=== PATIENT | female | born 1970 | race Caucasian/White ===

== ENCOUNTER 2021-06-13 08:39 | Emergency (ER) | payer MEDICARE, MEDICAID ==
--- NOTE | 2021-06-13 09:30 | ED Physician Documentation ---
PD HPI DYSPNEA - Stated complaint Stated Complaint: SOA - Chief complaint Chief Complaint: Cardiac - History obtained from History obtained from: Patient - History of Present Illness Timing - onset: How many days ago (She has had 3 days progress of shortness of breath and some pains on the right chest. She has noted a "gurgling" sound with breathing. She has had increased pain on the right side and worse dyspnea overnight.) Timing - onset during: Rest Timing - details: Gradual onset, Still present (worse overnight) Inciting event(s): No: URI (She denies fever cough or congestion. She has recently come to [facility] 2 weeks ago from the [facility] to be with relatives.) Improved by: Rest Worsened by: Exertion (just light activity), Coughing, Other (deep breathing) Associated symptoms: Cough (some cough), Wheezing, Chest pain / discomfort (right lower chest). No: Fever, Hemoptysis, Bilateral edema Similar symptoms before: Has not had sx before (no history of CHF/CAD. No pneumonia. Does have asthma. No home oxygen.) Recently seen: Clinic (has been getting TPN at nights by central line that she has had for several months, due to prior gastric resection and intestinal malabsorption.) Review of Systems Constitutional: reports: Fatigue. denies: Fever, Myalgias Nose: denies: Rhinorrhea / runny nose, Congestion Throat: denies: Sore throat Cardiac: reports: Chest pain / pressure (just recent). denies: Pedal edema, Calf pain Respiratory: reports: Dyspnea, Cough. denies: Wheezing GI: denies: Abdominal Pain, Vomiting, Diarrhea : denies: Dysuria Skin: denies: Rash Neurologic: reports: Generalized weakness. denies: Near syncope (but feeling lightheaded the past few days. States BP typical low at about 100 systolic.) PD PAST MEDICAL HISTORY - Past Medical History Past Medical History: Yes Cardiovascular: None Respiratory: Asthma, Shortness of breath Neuro: None Endocrine/Autoimmune: None GI: Other (gastroparesis with prior gastric resection. Also with malabsorption so gets TPN supplements due to chronic weight loss. ) LEVER TENDER: None : None HEENT: Chronic hearing loss Psych: Anxiety, Bipolar disorder Musculoskeletal: Chronic back pain Derm: None - Past Surgical History Past Surgical History: Yes General: Bowel surgery - Present Medications Home Medications: Ambulatory Orders Medication Instructions Recorded Confirmed Albuterol Sulf [Ventolin Hfa 1 - 2 puffs IH PRN PRN 06/13/21 06/13/21 Inhaler] Baclofen [Lioresal] 1 tablet ORAL PRN PRN 06/13/21 06/13/21 Cetirizine [ZyrTEC] 1 tab ORAL DAILY 06/13/21 06/13/21 DULoxetine [Cymbalta] 20 mg PO DAILY 06/13/21 06/13/21 Duloxetine HCl [Cymbalta] 60 mg PO DAILY 06/13/21 06/13/21 Furosemide [Lasix] 40 mg PO PRN PRN 06/13/21 06/13/21 Hydrocodone/Acetaminophen 1 tablet ORAL PRN PRN 06/13/21 06/13/21 [Hydrocodone-Acetamin 10-325 mg] Montelukast [Singulair] 1 tab ORAL DAILY 06/13/21 06/13/21 lamoTRIgine [Lamictal] 2 tablet PO BID 06/13/21 06/13/21 traMADol [Ultram] 1 tablet ORAL PRN PRN 06/13/21 06/13/21 - Allergies Allergies/Adverse Reactions: Allergies Allergy/AdvReac Type Severity Reaction Status Date / Time morphine Allergy Unknown Verified 06/13/21 09:42 Penicillins Allergy Unknown Verified 06/13/21 09:42 vancomycin AdvReac Unknown Verified 06/13/21 10:26 - Living Situation Living Situation: reports: With family Living Arrangement: reports: At home (recently moved 2 weeks ago from [facility] to be with family.) - Social History Does the pt smoke?: No Smoking Status: Former smoker Does the pt drink ETOH?: No Does the pt have substance abuse?: No - Family History Family history: reports: Non contributory - Immunizations Immunizations are current?: No Immunizations: TDAP >10years/unknown, Other immun not current - POLST Patient has POLST: Yes POLST Status: Full Code PD ED PE NORMAL - General General: Alert and oriented X 3, Other (able to sit up and maneuver in cart on her own. ). No: Well developed/nourished (frail and thin. ) - HEENT HEENT: No: Moist mucous membranes - Neck Neck: Supple, no meningeal sign, No adenopathy - Cardiac Cardiac: RRR, No murmur - Respiratory Respiratory: Other (central line noted right upper chest wall. No redness nor swelling. ). No: Clear bilaterally (coarse sounds right base and some wheezing diffusely. ) - Abdomen Abdomen: Soft, Non tender, Non distended - Derm Derm: Warm and dry. No: Normal color (pale) - Extremities Extremities: Normal ROM s pain, No edema, No calf tenderness / cord - Neuro Neuro: Alert and oriented X 3, No motor deficit, No sensory deficit, Normal speech Eye Opening: Spontaneous Motor: Obeys Commands Verbal: Oriented GCS Score: 15 - Psych Psych: Normal mood. No: Normal affect (somewhat flat) Results - Vitals Vitals: Vital Signs - 24 hr 06/13/21 06/13/21 06/13/21 08:46 08:55 09:38 Temperature 35.5 C L 36 C L Heart Rate 89 82 84 Respiratory 30 H 28 H 26 H Rate Blood Pressure 94/52 L 94/52 L 79/54 L O2 Saturation 88 L 93 96 06/13/21 06/13/21 06/13/21 09:51 10:16 11:59 Temperature Heart Rate 85 84 87 Respiratory 22 26 H 31 H Rate Blood Pressure 74/55 L 108/79 O2 Saturation 96 98 06/13/21 06/13/21 06/13/21 12:10 13:15 14:35 Temperature Heart Rate 86 85 86 Respiratory 22 30 H Rate Blood Pressure 77/48 L O2 Saturation 97 06/13/21 06/13/21 06/13/21 14:36 15:02 15:10 Temperature 36.7 C Heart Rate 87 85 84 Respiratory 34 H 33 H 33 H Rate Blood Pressure 81/42 L 118/32 L 78/47 L O2 Saturation 86 L 92 90 L Oxygen O2 Source Oxymask Oxygen Flow Rate 4 - Labs Labs: Laboratory Tests 06/13/21 06/13/21 06/13/21 09:51 09:51 09:51 WBC 12.4 H RBC 3.58 L Hgb 8.6 L Hct 28.7 L MCV 80.2 L MCH 24.0 L MCHC 30.0 L RDW 17.1 H Plt Count 252 MPV 9.6 Neut # (Auto) Not Reportable Lymph # (Auto) Not Reportable Gordon # (Auto) Not Reportable Eos # (Auto) Not Reportable Baso # (Auto) Not Reportable Absolute Nucleated RBC Not Reportable Total Counted 100 Band Neuts % (Manual) 26 H Abnorm Lymph % (Manual) 0 Metamyelocytes % 5 H Myelocytes % 1 H Promyelocytes % 1 H Nucleated RBC % Not Reportable Neutrophils # (Manual) 11.2 H Lymphocytes # (Manual) 0.2 L Monocytes # (Manual) 0.0 Eosinophils # (Manual) 0.0 Basophils # (Manual) 0.1 Differential Comment MANUAL DIFFERENTIAL WBC Morphology 1+ VACUOLATION Platelet Estimate NORMAL (130-450,000) Platelet Morphology NORMAL APPEARANCE RBC Morph Micro Appear NORMAL APPEARANCE D-Dimer Bld Gas Analysis Time Sample Site ABG pH ABG pCO2 ABG pO2 ABG HCO3 ABG Total CO2 ABG O2 Saturation ABG Base Excess Kody Test O2 Delivery Device O2 Liters/Min Sodium 133 L Potassium 4.4 Chloride 99 L Carbon Dioxide 22 Anion Gap 12.0 BUN 34 H Creatinine 1.0 Estimated GFR (MDRD) 59 L Glucose 93 Lactic Acid Calcium 8.8 Phosphorus 5.1 H Magnesium 2.3 Iron TIBC % Saturation Transferrin Total Bilirubin 0.9 AST 25 ALT 20 Alkaline Phosphatase 204 H Troponin I High Sens B-Natriuretic Peptide 983 H Total Protein 6.1 L Albumin 2.3 L Globulin 3.8 Albumin/Globulin Ratio 0.6 L Lipase 20 L Nasal Adenovirus (PCR) Nasal B. parapertussis DNA (PCR) Nasal Coronavir 229E PCR Nasal Coronavir HKU1 PCR Nasal Coronavir NL63 PCR Nasal Coronavir OC43 PCR Nasal Enterovir/Rhinovir PCR Nasal Influenza B PCR Nasal Influenza A PCR Nasal Parainfluen 1 PCR Nasal Parainfluen 2 PCR Nasal Parainfluen 3 PCR Nasal Parainfluen 4 PCR Nasal RSV (PCR) Nasal B.pertussis DNA PCR Nasal C.pneumoniae (PCR) Zac Human Metapneumo PCR Nasal M.pneumoniae (PCR) Nasal SARS-CoV-2 (PCR) 06/13/21 06/13/21 06/13/21 09:51 09:51 09:51 WBC RBC Hgb Hct MCV MCH MCHC RDW Plt Count MPV Neut # (Auto) Lymph # (Auto) Gordon # (Auto) Eos # (Auto) Baso # (Auto) Absolute Nucleated RBC Total Counted Band Neuts % (Manual) Abnorm Lymph % (Manual) Metamyelocytes % Myelocytes % Promyelocytes % Nucleated RBC % Neutrophils # (Manual) Lymphocytes # (Manual) Monocytes # (Manual) Eosinophils # (Manual) Basophils # (Manual) Differential Comment WBC Morphology Platelet Estimate Platelet Morphology RBC Morph Micro Appear D-Dimer > 1050.0 H Bld Gas Analysis Time Sample Site ABG pH ABG pCO2 ABG pO2 ABG HCO3 ABG Total CO2 ABG O2 Saturation ABG Base Excess Kody Test O2 Delivery Device O2 Liters/Min Sodium Potassium Chloride Carbon Dioxide Anion Gap BUN Creatinine Estimated GFR (MDRD) Glucose Lactic Acid 2.8 H Calcium Phosphorus Magnesium Iron TIBC % Saturation Transferrin Total Bilirubin AST ALT Alkaline Phosphatase Troponin I High Sens 16.2 H* B-Natriuretic Peptide Total Protein Albumin Globulin Albumin/Globulin Ratio Lipase Nasal Adenovirus (PCR) Nasal B. parapertussis DNA (PCR) Nasal Coronavir 229E PCR Nasal Coronavir HKU1 PCR Nasal Coronavir NL63 PCR Nasal Coronavir OC43 PCR Nasal Enterovir/Rhinovir PCR Nasal Influenza B PCR Nasal Influenza A PCR Nasal Parainfluen 1 PCR Nasal Parainfluen 2 PCR Nasal Parainfluen 3 PCR Nasal Parainfluen 4 PCR Nasal RSV (PCR) Nasal B.pertussis DNA PCR Nasal C.pneumoniae (PCR) Zac Human Metapneumo PCR Nasal M.pneumoniae (PCR) Nasal SARS-CoV-2 (PCR) 06/13/21 06/13/21 06/13/21 09:51 09:53 12:56 WBC RBC Hgb Hct MCV MCH MCHC RDW Plt Count MPV Neut # (Auto) Lymph # (Auto) Gordon # (Auto) Eos # (Auto) Baso # (Auto) Absolute Nucleated RBC Total Counted Band Neuts % (Manual) Abnorm Lymph % (Manual) Metamyelocytes % Myelocytes % Promyelocytes % Nucleated RBC % Neutrophils # (Manual) Lymphocytes # (Manual) Monocytes # (Manual) Eosinophils # (Manual) Basophils # (Manual) Differential Comment WBC Morphology Platelet Estimate Platelet Morphology RBC Morph Micro Appear D-Dimer Bld Gas Analysis Time Sample Site ABG pH ABG pCO2 ABG pO2 ABG HCO3 ABG Total CO2 ABG O2 Saturation ABG Base Excess Kody Test O2 Delivery Device O2 Liters/Min Sodium Potassium Chloride Carbon Dioxide Anion Gap BUN Creatinine Estimated GFR (MDRD) Glucose Lactic Acid 2.2 Calcium Phosphorus Magnesium Iron 51 TIBC 136 L % Saturation 38 Transferrin 97 L Total Bilirubin AST ALT Alkaline Phosphatase Troponin I High Sens B-Natriuretic Peptide Total Protein Albumin Globulin Albumin/Globulin Ratio Lipase Nasal Adenovirus (PCR) NOT DETECTED Nasal B. parapertussis DNA (PCR) NOT DETECTED Nasal Coronavir 229E PCR NOT DETECTED Nasal Coronavir HKU1 PCR NOT DETECTED Nasal Coronavir NL63 PCR NOT DETECTED Nasal Coronavir OC43 PCR NOT DETECTED Nasal Enterovir/Rhinovir PCR NOT DETECTED Nasal Influenza B PCR NOT DETECTED Nasal Influenza A PCR NOT DETECTED Nasal Parainfluen 1 PCR NOT DETECTED Nasal Parainfluen 2 PCR NOT DETECTED Nasal Parainfluen 3 PCR NOT DETECTED Nasal Parainfluen 4 PCR NOT DETECTED Nasal RSV (PCR) NOT DETECTED Nasal B.pertussis DNA PCR NOT DETECTED Nasal C.pneumoniae (PCR) NOT DETECTED Zac Human Metapneumo PCR NOT DETECTED Nasal M.pneumoniae (PCR) NOT DETECTED Nasal SARS-CoV-2 (PCR) NOT DETECTED 06/13/21 14:10 WBC RBC Hgb Hct MCV MCH MCHC RDW Plt Count MPV Neut # (Auto) Lymph # (Auto) Gordon # (Auto) Eos # (Auto) Baso # (Auto) Absolute Nucleated RBC Total Counted Band Neuts % (Manual) Abnorm Lymph % (Manual) Metamyelocytes % Myelocytes % Promyelocytes % Nucleated RBC % Neutrophils # (Manual) Lymphocytes # (Manual) Monocytes # (Manual) Eosinophils # (Manual) Basophils # (Manual) Differential Comment WBC Morphology Platelet Estimate Platelet Morphology RBC Morph Micro Appear D-Dimer Bld Gas Analysis Time 1410 Sample Site LEFT RADIAL ABG pH 7.39 ABG pCO2 34 ABG pO2 52 L* ABG HCO3 20.1 L ABG Total CO2 21.1 ABG O2 Saturation 86 L* ABG Base Excess -4.3 L Kody Test POSITIVE O2 Delivery Device NASAL CANNULA O2 Liters/Min 4.00 Sodium Potassium Chloride Carbon Dioxide Anion Gap BUN Creatinine Estimated GFR (MDRD) Glucose Lactic Acid Calcium Phosphorus Magnesium Iron TIBC % Saturation Transferrin Total Bilirubin AST ALT Alkaline Phosphatase Troponin I High Sens B-Natriuretic Peptide Total Protein Albumin Globulin Albumin/Globulin Ratio Lipase Nasal Adenovirus (PCR) Nasal B. parapertussis DNA (PCR) Nasal Coronavir 229E PCR Nasal Coronavir HKU1 PCR Nasal Coronavir NL63 PCR Nasal Coronavir OC43 PCR Nasal Enterovir/Rhinovir PCR Nasal Influenza B PCR Nasal Influenza A PCR Nasal Parainfluen 1 PCR Nasal Parainfluen 2 PCR Nasal Parainfluen 3 PCR Nasal Parainfluen 4 PCR Nasal RSV (PCR) Nasal B.pertussis DNA PCR Nasal C.pneumoniae (PCR) Zac Human Metapneumo PCR Nasal M.pneumoniae (PCR) Nasal SARS-CoV-2 (PCR) - Rads (name of study) chest xray Radiology: Prelim report reviewed (Multifocal pneumonia and infiltrates with right lower lobe dense infiltrate. No effusion. No pneumothorax.), See rad report PD MEDICAL DECISION MAKING - ED course Complexity details: reviewed results (Pneumonia on chest x-ray. Elevated D- dimer so's angio of the chest which was negative for PEs. Confirmed infiltrates. Elevated BNP so concern for some element of heart strain with the pneumonia. No history of CHF per se. Will be cautious with fluid bolusing.), considered differential (pneumonia versus PE, CHF, PA, PTX, other processes.), d/w patient ED course: We did not have any ICU beds available here. The patient is sick enough to need higher level of care. Our community resource officer look for bed availability. We weren't able to find an accepting software developer manager Dr. Hahn at [facility]. The patient is remaining stable enough at this point with low dose norepinephrine at 7 mcg and oxime mask at 12 L/min. She is mentating well. The patient is excepted to [facility]. They have no beds available at this point but will arrange rearrange their intermediate ICU and call us with bed availability as soon as they can. - Critical Care Time(min): 80 Time Includes: Direct patient care, Reassess patient, Document care, Coordinate care Data interpretation: Labs, ABG, CXR Procedures excluded from critical care time: EKG Departure - Departure Disposition: 02 Transfer Acute Care Hosp Clinical Impression: Dyspnea Qualifiers: Dyspnea type: shortness of breath Qualified Code(s): R06.02 - Shortness of breath Pneumonia Qualifiers: Pneumonia type: due to unspecified organism Laterality: bilateral Lung lo cation: unspecified part of lung Qualified Code(s): J18.9 - Pneumonia, unspecified organism Sepsis Qualifiers: Sepsis type: sepsis due to unspecified organism Sepsis acute organ dysfunction status: unspecified Qualified Code(s): A41.9 - Sepsis, unspecified organism Condition: Stable
[2021-06-13] MEDS ORDERED: KETOROLAC 15 MG/ML VIAL IVP STA (09:34)
[2021-06-13] MEDS ORDERED: SODIUM CHLORIDE 0.9% 1,000 ML IV STA ×3 (09:34→13:53)
[2021-06-13] MEDS ORDERED: ALBUTEROL 1 PUFF INH STA (09:35)
[2021-06-13 09:57] LABS: BASOPHILS % (AUTO) 0.1 %; EOSINOPHILS % (AUTO) 0.1 %; HCT - HEMATOCRIT 28.7 % (37.0-47.0); HGB - HEMOGLOBIN 8.6 g/dL (12.0-16.0); LYMPHOCYTES % (AUTO) 1.8 %; MEAN CORPUSCULAR VOLUME 80.2 fL (81.0-99.0); MEAN PLATELET VOLUME 9.6 fL (7.9-10.8); MONOCYTES % (AUTO) 1.3 %; NEUTROPHILS % (AUTO) 95.8 %; PLT - PLATELET COUNT 252 10^3/uL (130-450); RED BLOOD COUNT 3.58 10^6/uL (4.20-5.40); RED CELL DISTRIBUTION WIDTH 17.1 % (12.0-15.0); WHITE BLOOD COUNT 12.4 x10^3/uL (4.8-10.8)
--- NOTE | 2021-06-13 09:57 | XRAY Report ---
PROCEDURE: Chest 1 View X-Ray INDICATIONS: chest pain TECHNIQUE: One view of the chest was acquired. COMPARISON: None. FINDINGS: Surgical changes and devices: Right-sided central venous line with the catheter tip at the cavoatrial junction. Clip at the left upper abdomen. Left shoulder anchor. Lungs and pleura: No pleural effusions or pneumothorax. Large consolidative opacity in the right mid lung field. Patchy airspace opacity in the right and left lungs. Mediastinum: Mediastinal contours appear normal. Heart size is normal. Bones and chest wall: No suspicious bony lesions. Overlying soft tissues appear unremarkable. IMPRESSION: Large consolidation in the right lung. Bilateral patchy airspace opacity. Findings most consistent with multifocal pneumonia. Recommend follow-up to resolution. Reviewed by: Tyler Cordoba MD on 06/13/2021 9:56 AM [facility] Approved by: Tyler Cordoba MD on 06/13/2021 9:56 AM [facility] Station ID: [id number]
[2021-06-13] MEDS ORDERED: AZITHROMYCIN INJ 500 MG in SODIUM CHLORIDE 0.9% 250 ML IV STA (09:59)
[2021-06-13] MEDS ORDERED: cefTRIAXone 1 GM VIAL IVP STA (09:59)
[2021-06-13 10:02] LABS: ABNORMAL LYMPHS % (MANUAL) 0 %
[2021-06-13 10:21] LABS: ALBUMIN 2.3 g/dL (3.2-5.5); ALBUMIN/GLOBULIN RATIO 0.6 (1.0-2.2); BILIRUBIN,TOTAL 0.9 mg/dL (0.2-1.0); CALCIUM 8.8 mg/dL (8.5-10.3); MAGNESIUM 2.3 mg/dL (1.7-2.8); PHOSPHORUS 5.1 mg/dL (2.5-4.6); POTASSIUM 4.4 mmol/L (3.5-5.0); TOTAL PROTEIN 6.1 g/dL (6.7-8.2)
[2021-06-13 10:41] LABS: BAND NEUTROPHILS % (MANUAL) 26 %; BASOPHILS # (MANUAL) 0.1 10^3/uL (0-0.1); BASOPHILS % (MANUAL) 1 %; LYMPHOCYTES # (MANUAL) 0.2 10^3/uL (1.5-3.5); LYMPHOCYTES % (MANUAL) 2 %; METAMYELOCYTES % (MANUAL) 5 %; MYELOCYTES % (MANUAL) 1 %; NEUTROPHILS # (MANUAL) 11.2 10^3/uL (1.5-6.6); PROMYELOCYTES % (MANUAL) 1 %
[2021-06-13 10:44] LABS: DIFFERENTIAL COMMENT MANUAL DIFFERENTIAL; PLATELET ESTIMATE, MANUAL NORMAL (130-450,000) (NORMAL); PLATELET MORPHOLOGY NORMAL APPEARANCE (NORMAL); RBC MORPHOLOGY (MULTIPLE) NORMAL APPEARANCE (NORMAL)
[2021-06-13] MEDS ORDERED: IOVERSOL 320 100 ML VIAL IVP ONE ×2 (11:15→13:14)
[2021-06-13 11:32] LABS: % IRON SATURATION 38 % (20-50); IRON 51 ug/dL (28-170); TOTAL IRON BINDING CAPACITY 136 ug/dL (250-450); TRANSFERRIN 97 mg/dL (192-382)
[2021-06-13] MEDS ORDERED: IPRATROPIUM/ALBUTEROL 3 ML NEB INH STA (11:43)
[2021-06-13 11:47] LABS: B. PARAPERTUSSIS- RESP PCR PAN NOT DETECTED; B. PERTUSSIS- RESP PCR PANEL NOT DETECTED; C. PNEUMONIAE- RESP PCR PANEL NOT DETECTED; CORONAVIRUS 229E-RESP PCR NOT DETECTED; CORONAVIRUS HKU1-RESP PCR NOT DETECTED; CORONAVIRUS NL63-RESP PCR NOT DETECTED; CORONAVIRUS OC43-RESP PCR NOT DETECTED; HUMAN METAPNEUMOVIRUS NOT DETECTED; INFLUENZA A- RESP PCR PANEL NOT DETECTED; INFLUENZA B - RESP PCR PANEL NOT DETECTED; M. PNEUMONIAE- RESP PCR PANEL NOT DETECTED; PARAINFLUENZA VIRUS 1 NOT DETECTED; PARAINFLUENZA VIRUS 2 NOT DETECTED; PARAINFLUENZA VIRUS 3 NOT DETECTED; PARAINFLUENZA VIRUS 4 NOT DETECTED; RHINOVIRUS/ENTEROVIRUS NOT DETECTED; RSV- RESP PCR PANEL NOT DETECTED; SARS-CoV-2 -RESP PCR PANEL NOT DETECTED
[2021-06-13] MEDS ORDERED: fentaNYL 100 MCG/2 ML VIAL IVP STA ×3 (11:48→16:50)
--- NOTE | 2021-06-13 11:49 | CT Report ---
PROCEDURE: ANGIO CHEST W/WO INDICATIONS: dyspnea, pneumonia, elevated d-dimer CONTRAST: IV CONTRAST: Optiray 320 ml: 80 PO CONTRAST: *NO PO CONTRAST TECHNIQUE: After the administration of intravenous contrast, 2 mm axial images were acquired from the pulmonary apices to the posterior costophrenic angles during the arterial phase. In addition, 1 mm lung kernel and 5 mm soft tissue kernel reconstructions were performed. 3-dimensional coronal oblique maximum int ensity projection (MIP) reformats, 8 mm axial MIP, and 5 mm coronal and sagittal MPR reformats were t hen performed through the thorax. For radiation dose reduction, the following was used: automated exp osure control, adjustment of mA and/or kV according to patient size. COMPARISON: Chest x-ray 06/13/2021 FINDINGS: Image quality: Excellent. Pulmonary arteries: Pulmonary arteries are normal in size, and demonstrate no intraluminal filling d efects to suggest central pulmonary embolism. Lungs and pleura: Patchy and confluent areas of consolidative opacity including groundglass opacities are present within the lungs bilaterally. No pleural effusions or pneumothorax. Central and periphe ral airways are patent. Mediastinum: Heart size is normal, without pericardial effusion. Enlarged mediastinal and hilar lymp h nodes are present. Thoracic aorta is normal in caliber and enhancement. Esophagus is normal in jaycee iber, without hiatal hernia. Right-sided central venous catheter is present within the SVC and termi nating at the level the right atrium. Bones and chest wall: No suspicious bony lesions. Ribs and thoracic spine appear intact throughout. No axillary or supraclavicular adenopathy. The thyroid is normal in size and there are no incident al findings. Abdomen: Visualized upper abdominal solid organs appear normal in the early arterial phase of enhanc ement. IMPRESSION: Patchy and consolidative opacities including groundglass opacities are present within the lungs bilat erally most consistent with inflammation/infection such as pneumonia. Recommend interval follow-up to document resolution and exclude presence of underlying mass lesion. No pulmonary embolism. CLINICAL RECOMMENDATION STATEMENTS: In patients <35 years with an ITN detected on CT, MRI, or extrathyroidal ultrasound, the Committee re commends further evaluation with dedicated thyroid ultrasound if the nodule is "e1 cm and has no susp icious imaging features, and if the patient has normal life expectancy. In patients "e35 years with an ITN detected on CT, MRI, or extrathyroidal ultrasound, the Committee r ecommends further evaluation with dedicated thyroid ultrasound if the nodule is "e1.5 cm and has no s uspicious imaging features, and if the patient has normal life expectancy. (ACR, 2014) Reviewed by: Janice Arana MD on 06/13/2021 11:48 AM PST Approved by: Janice Arana MD on 06/13/2021 11:48 AM PST Station ID: [id number]
[2021-06-13 14:15] LABS: ABG HCO3 20.1 mmol/L (22.0-26.0); ABG PCO2 34 mmHg (34-45); ABG PH 7.39 (7.35-7.45)
[2021-06-13 14:16] LABS: ABG BASE EXCESS -4.3 mmol/L (-2.0-3.0); ABG TCO2 21.1 MMOL/L (21.0-29.0); ALLEN TEST POSITIVE
[2021-06-13 14:17] LABS: ABG OXYGEN SATURATION 86 % (94-98); ABG PO2 52 mmHg (80-100)
[2021-06-13] MEDS ORDERED: SODIUM CHLORIDE 0.9% 500 ML IV STA (14:20)
[2021-06-13] MEDS ORDERED: ALBUTEROL NEB 2.5 MG/3 ML INH STA ×2 (14:21→16:18)
[2021-06-13] MEDS ORDERED: DEXAMETHASONE 10 MG/ML VIAL IVP STA (16:18)
[2021-06-13 16:49] VITALS: BP 119/52
== END 2021-06-13 17:14 | disposition short-term general hospital (02) ==
LOC: ED 08:39
DX: A41.9 Sepsis, unspecified organism (principal); J18.9 Pneumonia, unspecified organism; R53.1 Weakness; J45.909 Unspecified asthma, uncomplicated; Z20.822 Contact with and (suspected) exposure to COVID-19; Z87.891 Personal history of nicotine dependence; K90.9 Intestinal malabsorption, unspecified; Z90.3 Acquired absence of stomach [part of]
CPT/HCPCS: 36415; 36600; 71045; 71275; 80053; 82803; 83540; 83605; 83690; 83735; 83880; 84100; 84466; 84484; 85025; 85379; 87631; 93005; 94640; 94664; 96361; 96365; 96366; 96367; 96375; 96376; 99285; 99291; 99292; Q9967; 0202U

== ENCOUNTER 2022-01-10 09:44 | Outpatient (CLI) | payer MEDICARE, MEDICAID | END 2022-01-10 09:45 | disposition short-term general hospital (02) | LOC: EMS 09:44 | DX: M79.89 Other specified soft tissue disorders (principal); M25.571 Pain in right ankle and joints of right foot; R26.2 Difficulty in walking, not elsewhere classified | CPT/HCPCS: A0425; A0429; A0888 ==

== ENCOUNTER 2022-04-29 10:15 | Outpatient (CLI) | payer MEDICARE, MEDICAID | END 2022-04-29 10:16 | disposition critical access hospital (66) | LOC: EMS 10:15 | DX: R11.0 Nausea (principal); R53.83 Other fatigue; R41.82 Altered mental status, unspecified; R53.1 Weakness | CPT/HCPCS: A0425; A0427 ==

== ENCOUNTER 2022-04-29 10:37 | Emergency (ER) | payer MEDICARE, MEDICAID ==
[2022-04-29 11:11] LABS: BASOPHILS % (AUTO) 0.7 %; EOSINOPHILS % (AUTO) 0.4 %; HGB - HEMOGLOBIN 8.7 g/dL (12.0-16.0); LYMPHOCYTES % (AUTO) 7.9 %; MEAN CORPUSCULAR HEMOGLOBIN 23.9 pg (27.0-31.0); MEAN CORPUSCULAR HGB CONC 32.2 g/dL (32.0-36.0); MEAN CORPUSCULAR VOLUME 74.2 fL (81.0-99.0); MONOCYTES % (AUTO) 5.6 %; NEUTROPHILS % (AUTO) 81.4 %; PLT - PLATELET COUNT 115 10^3/uL (130-450); RED BLOOD COUNT 3.64 10^6/uL (4.20-5.40); RED CELL DISTRIBUTION WIDTH 16.7 % (12.0-15.0); WHITE BLOOD COUNT 11.1 x10^3/uL (4.8-10.8)
[2022-04-29 11:13] LABS: SLIDE REVIEW? Indicated
[2022-04-29 11:27] LABS: ALBUMIN 2.3 g/dL (3.2-5.5); ALBUMIN/GLOBULIN RATIO 0.6 (1.0-2.2); BILIRUBIN,TOTAL 0.5 mg/dL (0.2-1.0); CALCIUM 9.2 mg/dL (8.5-10.3); CREATININE 1.4 mg/dL (0.4-1.0); TOTAL PROTEIN 5.9 g/dL (6.7-8.2)
[2022-04-29 11:31] LABS: POTASSIUM 2.5 mmol/L (3.5-5.0)
[2022-04-29 11:39] LABS: ABNORMAL LYMPHS % (MANUAL) 1 %; BAND NEUTROPHILS % (MANUAL) 1 %; EOSINOPHILS # (MANUAL) 0.1 10^3/uL (0-0.7); LYMPHOCYTES # (MANUAL) 1.6 10^3/uL (1.5-3.5); LYMPHOCYTES % (MANUAL) 13 %; METAMYELOCYTES % (MANUAL) 2 %; MONOCYTES # (MANUAL) 0.2 10^3/uL (0.0-1.0)
[2022-04-29 11:42] LABS: DIFFERENTIAL COMMENT MANUAL DIFFERENTIAL; PLATELET ESTIMATE, MANUAL DECREASED (<130,000) (NORMAL); PLATELET MORPHOLOGY NORMAL APPEARANCE (NORMAL); WBC MORPHOLOGY (MULTIPLE) NORMAL APPEARANCE (NORMAL)
[2022-04-29] MEDS ORDERED: SODIUM CHLORIDE 0.9% 1,950 ML IV STA (12:00)
--- NOTE | 2022-04-29 12:01 | ED Physician Documentation ---
History of Present Illness - Stated complaint Stated Complaint: N/V - Chief complaint Chief Complaint: Abd Pain - Additonal information Additional information: 51-year-old female presents to the emergency department for evaluation of fevers, nausea and vomiting. Symptoms began 3 days ago. She reports that anytime she eats or drinks anything after the second or third gulp of food or water she will immediately vomit. Patient has limited history here at [facility]. 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 She also has a history of malabsorption and refeeding syndrome. She has a catheter in her chest for which she undergoes TPN 16 hours a day. Patient reports to me that she has had a total gastrectomy in the past. Review of Systems Constitutional: reports: Fever Cardiac: reports: Reviewed and negative Respiratory: reports: Reviewed and negative GI: reports: Abdominal Pain, Nausea, Vomiting : reports: Reviewed and negative Skin: reports: Reviewed and negative Musculoskeletal: reports: Reviewed and negative PD PAST MEDICAL HISTORY - Past Medical History Cardiovascular: None Respiratory: Asthma, Shortness of breath Neuro: None Endocrine/Autoimmune: None GI: Other (gastroparesis with prior gastric resection. Also with malabsorption so gets TPN supplements due to chronic weight loss. 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 HEENT: Chronic hearing loss Psych: Anxiety, Bipolar disorder Musculoskeletal: Chronic back pain Derm: None - Past Surgical History Past Surgical History: Yes General: Bowel surgery - Present Medications Home Medications: Ambulatory Orders Medication Instructions Recorded Confirmed Albuterol Sulf [Ventolin Hfa 1 - 2 puffs IH PRN PRN 06/13/21 06/13/21 Inhaler] Baclofen [Lioresal] 1 tablet ORAL PRN PRN 06/13/21 06/13/21 Cetirizine [ZyrTEC] 1 tab ORAL DAILY 06/13/21 06/13/21 DULoxetine [Cymbalta] 20 mg PO DAILY 06/13/21 06/13/21 Duloxetine HCl [Cymbalta] 60 mg PO DAILY 06/13/21 06/13/21 Furosemide [Lasix] 40 mg PO PRN PRN 06/13/21 06/13/21 Hydrocodone/Acetaminophen 1 tablet ORAL PRN PRN 06/13/21 06/13/21 [Hydrocodone-Acetamin 10-325 mg] Montelukast [Singulair] 1 tab ORAL DAILY 06/13/21 06/13/21 lamoTRIgine [Lamictal] 2 tablet PO BID 06/13/21 06/13/21 traMADol [Ultram] 1 tablet ORAL PRN PRN 06/13/21 06/13/21 Azithromycin [Zithromax] 0 mg PO DAILY #6 tablet 04/29/22 Doxycycline Hyclate 100 mg PO BID #14 cap 04/29/22 Ondansetron Odt [Zofran] 4 mg TL Q6H PRN #10 tablet 04/29/22 - Allergies Allergies/Adverse Reactions: Allergies Allergy/AdvReac Type Severity Reaction Status Date / Time morphine Allergy Unknown Verified 06/13/21 09:42 Penicillins Allergy Unknown Verified 06/13/21 09:42 vancomycin AdvReac Unknown Verified 06/13/21 10:26 - Social History Does the pt smoke?: No Smoking Status: Former smoker Does the pt drink ETOH?: No Does the pt have substance abuse?: No - Immunizations Immunizations are current?: No Immunizations: TDAP >10years/unknown, Other immun not current - POLST Patient has POLST: Yes POLST Status: Full Code PD ED PE EXPANDED - General General: Alert, No acute distress, Other (Appears chronically ill) - Cardiac Cardiac: Regular Rate, Radial strong equal, Pedal strong equal, Cap refill < 2 sec. No: Murmur Present - Respiratory Respiratory: Clear to ausultation june. No: Distress, Labored - Abdomen Abdomen: Generalized/diffuse (General abdominal tenderness though right greater than left. No guarding or rebound. Large midline ventral incision well- healed.) - Derm Derm: Normal color, Warm and dry - Neuro Neuro: Alert and Oriented X 3, CNII-XII intact - GCS Eye Opening: Spontaneous Motor: Obeys Commands Verbal: Oriented Total: 15 Results - Vitals Vitals: Vital Signs - 24 hr 04/29/22 04/29/22 04/29/22 10:43 11:29 12:41 Temperature 38.4 C H Heart Rate 93 92 88 Respiratory 19 19 22 Rate Blood Pressure 138/77 H O2 Saturation 95 95 95 Oxygen O2 Source Room air - Labs Labs: Laboratory Tests 04/29/22 04/29/22 04/29/22 10:59 10:59 11:29 WBC 11.1 H RBC 3.64 L Hgb 8.7 L Hct 27.0 L MCV 74.2 L MCH 23.9 L MCHC 32.2 RDW 16.7 H Plt Count 115 L Neut # (Auto) Not Reportable Lymph # (Auto) Not Reportable [place] # (Auto) Not Reportable Eos # (Auto) Not Reportable Baso # (Auto) Not Reportable Absolute Nucleated RBC Not Reportable Total Counted 100 Band Neuts % (Manual) 1 Abnorm Lymph % (Manual) 1 Metamyelocytes % 2 H Nucleated RBC % Not Reportable Neutrophils # (Manual) 9.0 H Lymphocytes # (Manual) 1.6 Monocytes # (Manual) 0.2 Eosinophils # (Manual) 0.1 Basophils # (Manual) 0.0 Differential Comment MANUAL DIFFERENTIAL Manual Slide Review Indicated WBC Morphology NORMAL APPEARANCE Platelet Estimate DECREASED (<130,000) Platelet Morphology NORMAL APPEARANCE RBC Morph Micro Appear 2+ HYPOCHROMASIA Sodium 134 L Potassium 2.5 L* Chloride 102 Carbon Dioxide 23 Anion Gap 9.0 BUN 27 H Creatinine 1.4 H Estimated GFR (MDRD) 40 L Glucose 201 H Lactic Acid 1.8 Calcium 9.2 Total Bilirubin 0.5 AST 27 ALT 23 Alkaline Phosphatase 394 H Total Protein 5.9 L Albumin 2.3 L Globulin 3.6 Albumin/Globulin Ratio 0.6 L Lipase 23 Procalcitonin Urine Color Urine Clarity Urine pH Ur Specific [place] Urine Protein Urine Glucose (UA) Urine Ketones Urine Occult Blood Urine Nitrite Urine Bilirubin Urine Urobilinogen Ur Leukocyte Esterase Urine RBC Urine WBC Urine WBC Clumps Ur Epithelial Cells Ur Squamous Epith Cells Urine Bacteria Ur Microscopic Review Urine Culture Comments 04/29/22 04/29/22 11:57 12:20 WBC RBC Hgb Hct MCV MCH MCHC RDW Plt Count Neut # (Auto) Lymph # (Auto) [place] # (Auto) Eos # (Auto) Baso # (Auto) Absolute Nucleated RBC Total Counted Band Neuts % (Manual) Abnorm Lymph % (Manual) Metamyelocytes % Nucleated RBC % Neutrophils # (Manual) Lymphocytes # (Manual) Monocytes # (Manual) Eosinophils # (Manual) Basophils # (Manual) Differential Comment Manual Slide Review WBC Morphology Platelet Estimate Platelet Morphology RBC Morph Micro Appear Sodium Potassium Chloride Carbon Dioxide Anion Gap BUN Creatinine Estimated GFR (MDRD) Glucose Lactic Acid Calcium Total Bilirubin AST ALT Alkaline Phosphatase Total Protein Albumin Globulin Albumin/Globulin Ratio Lipase Procalcitonin 0.76 H Urine Color YELLOW Urine Clarity CLEAR Urine pH 6.0 Ur Specific [place] 1.010 Urine Protein 30 H Urine Glucose (UA) NEGATIVE Urine Ketones NEGATIVE Urine Occult Blood SMALL H Urine Nitrite NEGATIVE Urine Bilirubin NEGATIVE Urine Urobilinogen 0.2 (NORMAL) Ur Leukocyte Esterase NEGATIVE Urine RBC 0-5 Urine WBC 11-25 H Urine WBC Clumps PRESENT Ur Epithelial Cells FEW Transitional Ur Squamous Epith Cells NONE SEEN Urine Bacteria Few Ur Microscopic Review INDICATED Urine Culture Comments NOT INDICATED - Rads (name of study) CT abd Radiology: Final report received (Prior gastric surgery without evidence of obstruction or inflammatory change. Splenomegaly 13 cm. Nodular bibasilar pulmonary infiltrates probably reflects an infectious or inflammatory etiology. Follow-up resolution to exclude underlying neoplasm.) cxr Radiology: Final report received (More areas of opacity within the lungs of above. This could represent scarring, recurrent airspace disease or an underlying mass and lesion) PD MEDICAL DECISION MAKING - ED course Complexity details: reviewed results, re-evaluated patient, considered differential, d/w patient ED course: 51-year-old female presents emergency department for evaluation of 3 days of nausea and vomiting and fever. This is in the setting of a history of a gastrectomy when she was 35. She does receive TPN 16 hours a day. She also unfortunately had a right BKA in December 2021 secondary to necrotizing fasciitis of the leg. On presentation to the emergency department despite her history she is alert and well-appearing. She is in no respiratory distress. Room air saturations are greater than 95%. Her CBC shows a white count of just over 11,000. Her procalcitonin is only mildly elevated at 0.7. Blood cultures are pending. Urine catheterization shows greater than 25 WBCs and rare bacteria. Given how the urine was collected this is concerning for an acute cystitis. Chest x-ray suggest bibasilar lower lobe infiltrates versus an Mass. A CT of the abdomen shows no acute intra- abdominal findings and again the bibasilar infiltrates are noted. Here in the emergency department the patient was given a gram of ceftriaxone. She has a low curb 65 score and we could consider outpatient treatment of the pneumonia. Though she has a fever she is not hypotensive or tachycardic. We did note a very low potassium here in the emergency department of 2.5. She was repleted with 40 of potassium intravenously. This is most likely due to the nausea and vomiting. After some nausea medications IV fluids patient was able to tolerate sips of clear liquids thus she is stable for discharge home a prescription for doxycycline and azithromycin is being sent to the [facility]. Emergent return precautions were discussed for failure of symptoms to resolve over the next 48 to 72 hours. Departure - Departure Disposition: Home, Self Care Clinical Impression: Hypokalemia Community acquired pneumonia Qualifiers: Laterality: unspecified laterality Qualified Code(s): J18.9 - Pneumonia, unspecified organism Acute cystitis Qualifiers: Hematuria presence: without hematuria Qualified Code(s): N30.00 - Acute cystitis without hematuria Condition: Stable Record reviewed to determine appropriate education?: Yes Prescriptions: Doxycycline Hyclate 100 mg PO BID #14 cap Azithromycin [Zithromax] 0 mg PO DAILY #6 tablet Ondansetron Odt [Zofran] 4 mg TL Q6H PRN #10 tablet PRN Reason: Nausea / Vomiting Comments: Islam you are seen today in the emergency department because you have had fever, nausea vomiting for about [address] scan of your abdomen shows that you likely have a pneumonia in the lower portion of your lungs. Our labs also indicate that you have a urinary tract infection. A prescription for doxycycline and azithromycin, both antibiotics, have been sent to the [facility]. If you find that your symptoms are not improving after 48 hours despite taking the antibiotics then you should return immediately to the ER. I am also sending a prescription for some Zofran and nausea medicine to the pharmacy. It is important that you follow closely with your primary care doctor after completion of the antibiotics. Your CAT scan or x-rays that should be repeated to make sure that the pneumonia has resolved. If it still is present on imaging that could be a sign that it is something more than that such as a mass and would need to be further evaluated with biopsy.
[2022-04-29 12:24] LABS: BILIRUBIN,URINE NEGATIVE (NEGATIVE); GLUCOSE, URINE (UA) NEGATIVE (NEGATIVE); KETONES,URINE (UA) NEGATIVE (NEGATIVE); LEUKOCYTE ESTERASE, URINE NEGATIVE (NEGATIVE); NITRITE,URINE NEGATIVE (NEGATIVE); OCCULT BLOOD,URINE SMALL (NEGATIVE); PROTEIN,URINE 30 mg/dL (NEGATIVE); UROBILINOGEN,URINE 0.2 (NORMAL) E.U./dL (NORMAL)
[2022-04-29 12:25] LABS: CLARITY,URINE CLEAR (CLEAR)
[2022-04-29 12:36] LABS: BACTERIA,URINE Few /HPF (None Seen); EPITHELIAL CELLS,UR FEW Transitional /HPF (<= Few); RBC,URINE 0-5 /HPF (0-5); SQUAMOUS EPITHELIAL CELL,UR NONE SEEN (<= Few); WBC CLUMPS,URINE PRESENT
[2022-04-29] MEDS: POTASSIUM CHLOR 10 MEQ/100 ML 10 MEQ/100 ML BAG IV SCH ×4 (12:40→16:48)
--- NOTE | 2022-04-29 13:02 | CT Report ---
PROCEDURE: CT abdomen pelvis without contrast INDICATIONS: Nausea and vomiting TECHNIQUE: Noncontrast 5 mm thick sections acquired from the diaphragms to the symphysis. 5 mm coronal and sagi ttal reformats were then performed. For radiation dose reduction, the following was used: automated exposure control, adjustment of mA and/or kV according to patient size. COMPARISON: None. FINDINGS: Lower thorax: Patchy bilateral pulmonary infiltrate with underlying nodular consolidation, partially imaged. Heart size normal. No hiatal hernia. Liver: Normal in size and attenuation. No contour deformity present. Biliary system: No calcified cholelithiasis or pericholecystic inflammation. No evidence of bile du ct dilatation. Pancreas: Unremarkable without mass or inflammation evident. Spleen: Spleen is enlarged at 13 cm. Adrenals: Normal morphology and density. Reproductive system: Unremarkable as visualized. Urinary system: Normal renal size and attenuation. No renal calculi, hydronephrosis, or solid mass p resent. Urinary bladder unremarkable. Gastrointestinal system: Prior gastric surgery noted. No evidence of obstruction. Appendix: No findings to suggest acute appendicitis. Peritoneal spaces: No mesenteric or retroperitoneal adenopathy. No free air. No free fluid. Vasculature: The IVC, aorta and iliac vasculature are unremarkable. Musculoskeletal: Normal bone mineralization. No acute fractures. Abdominal wall intact without katy dence of ventral or inguinal hernias. IMPRESSION: Prior gastric surgery without evidence of obstruction or inflammatory change Splenomegaly, 13 cm. Nodular bibasilar pulmonary infiltrates probably reflects an infectious or inflammatory etiology. Fol low-up to resolution to exclude underlying neoplasm Reviewed by: Alessandro Pearl MD on 04/29/2022 12:00 PM YANI Approved by: Alessandro Pearl MD on 04/29/2022 12:00 PM AKDT Station ID: [id number]
[2022-04-29] MEDS ORDERED: ONDANSETRON 4 MG/2 ML VIAL IVP STA (13:14)
[2022-04-29] MEDS ORDERED: cefTRIAXone 1 GM VIAL IVP STA (13:14)
--- NOTE | 2022-04-29 13:14 | XRAY Report ---
PROCEDURE: Chest 1 View X-Ray INDICATIONS: chest pain TECHNIQUE: One view of the chest was acquired. COMPARISON: Chest x-ray 06/13/2020 FINDINGS: Surgical changes and devices: Present projecting over the distal SVC/right atrial junction. Lungs and pleura: There are minimal areas of opacity within the lungs compared to the extensive areas of focal and confluent areas on prior exam. Mediastinum: Mediastinal contours appear normal. Heart size is normal. Bones and chest wall: No suspicious bony lesions. Overlying soft tissues appear unremarkable. IMPRESSION: Minimal areas of opacity within the lungs as above. These could be field representative of scarring, recurr ent/residual airspace disease or underlying mass lesions. Reviewed by: Janice Arana MD on 04/29/2022 1:13 PM PDT Approved by: Janice Arana MD on 04/29/2022 1:13 PM PDT Station ID: [id number]
[2022-04-29 18:11] VITALS: BP 133/76
== END 2022-04-29 18:31 | disposition home or self-care (01) ==
LOC: EDUNIT# → ED 10:37
DX: J18.9 Pneumonia, unspecified organism (principal); E87.6 Hypokalemia; N30.00 Acute cystitis without hematuria; K90.9 Intestinal malabsorption, unspecified; F41.9 Anxiety disorder, unspecified
CPT/HCPCS: 36415; 51701; 80053; 81001; 81003; 83605; 83690; 84145; 85025; 87040; 87086; 87150; 99283

== ENCOUNTER 2022-06-04 16:29 | Outpatient (CLI) | payer MEDICARE, MEDICAID | END 2022-06-04 16:30 | disposition EMS.NT | LOC: EMS 16:29 | DX: Z03.89 Encounter for observation for other suspected diseases and conditions ruled out (principal) ==

== ENCOUNTER 2022-11-05 08:29 | Outpatient (CLI) | payer MEDICARE, MEDICAID | END 2022-11-05 08:30 | disposition critical access hospital (66) | LOC: EMS 08:29 | DX: M54.50 Low back pain, unspecified (principal); R25.2 Cramp and spasm; W06.XXXA Fall from bed, initial encounter; Y92.003 Bedroom of unspecified non-institutional (private) residence as the place of occurrence of the external cause | CPT/HCPCS: A0425; A0429 ==

== ENCOUNTER 2022-11-05 08:50 | Emergency (ER) | payer MEDICARE, MEDICAID ==
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
[2022-11-05] MEDS ORDERED: KETOROLAC 15 MG/ML VIAL IVP STA (09:18)
[2022-11-05] MEDS ORDERED: diazePAM INJ 5 MG/ML SYRINGE IVP STA (09:18)
[2022-11-05] MEDS ORDERED: HYDROmorphone 1 MG/ML CARPUJECT IVP STA ×2 (09:18→17:01)
[2022-11-05] MEDS ORDERED: SODIUM CHLORIDE 0.9% 1,000 ML IV STA (09:18)
--- OUTSIDE RECORDS SUMMARY | 2022-11-05 09:35 | EXTERNAL MEDICAL SUMMARY RPT | Continuity of Care Document ---
:1970 Author Organization [place] Address [address] [place] [address] Phone Care Team Providers Name Role Phone Unavailable Unavailable Unavailable Shaneka García Unavailable Unavailable Allergies and Intolerances date description facility type (no date) Penicillins [facility] (unknown) (no date) chlorhexidine [facility] (unknown) (no date) lidocaine [facility] (unknown) (no date) vancomycin [facility] (unknown) Encounters No information. Functional Status No information. Immunizations No information. Medications date description facility 2022-09-25 00:00 Buprenorphine [facility] 2022-09-25 00:00 Dextroamphetamine-Amphetamine [facility] 2022-09-25 00:00 Duloxetine [facility] 2022-09-25 [facility] Hydrocodone[facility]Ac[facility]amin[facility] Problems date description facility 2022-09-25 00:00 Bilateral pneumonia [facility] 2022-10-29 16:34 Other iron deficiency anemias [facility] Procedures date description facility 2022-09-25 00:00 X-ray of chest, single view [facility] 2022-09-25 00:00 Computed tomography angiography of ches t with [facility] contrast for pulmonary embolus Results/Labs test date author facility value unit interpret ation Result panel 1 (unknown) (no date) (unknown) [place] [facility]) Result panel 2 (unknown) (no date) (unknown) [facility]) Result panel 3 (unknown) (no date) (unknown) [place] [facility]) Result panel 4 (unknown) (no date) (unknown) [place] [facility]) Result panel 5 (unknown) (no date) (unknown) [place] [facility] Result panel 6 (unknown) (no date) ([place] [facility]) Result panel 7 (unknown) (no date) ([facility] Result panel 8 (unknown) (no date) ([facility] Result panel 9 (unknown) (no date) (unknown[facility] Result panel 10 (unknown) (no date) (unknown[facility] Result panel 11 (unknown) (no date) (unknown[facility] Result panel 12 (unknown) (no date) (unknown[facility]) Result panel 13 (unknown) (no date) (unknown[facility] Result panel 14 (unknown) (no date) (unknown[facility] Result panel 15 (unknown) (no date) (unknown[facility]) Result panel 16 (unknown) (no date) (unknown[facility] Result panel 17 (unknown) (no date) (unknown[facility] Result panel 18 (unknown) (no date) (unknown[facility] Result panel 19 (unknown) (no date) (unknown[facility]) Result panel 20 (unknown) (no date) (unknown[facility] Result panel 21 (unknown) (no date) (unknown[facility] Result panel 22 (unknown) (no date) (unknown[facility] Result panel 23 (unknown) (no date) (unknown[facility] Result panel 24 (unknown) (no date) (unknown[facility]) Result panel 25 (unknown) (no date) (unknown[facility]) Result panel 26 (unknown) (no date) (unknown[facility]) Result panel 27 (unknown) (no date) (unknown[facility]) Result panel 28 (unknown) (no date) (unknown[facility] Result panel 29 (unknown) (no date) (unknown[facility]) Result panel 30 (unknown) (no date) (unknown[facility]) Result panel 31 (unknown) (no date) (unknown[facility] Result panel 32 (unknown) (no date) (unknown[facility]) Result panel 33 (unknown) (no date) (unknown[facility] Result panel 34 (unknown) (no date) (unknown[facility]) Result panel 35 (unknown) (no date) (unknown[facility] Result panel 36 (unknown) (no date) (unknown[facility]) Result panel 37 (unknown) (no date) (unknown[facility]) Result panel 38 (unknown) (no date) (unknown[facility]) Result panel 39 (unknown) (no date) (unknown[facility]) Result panel 40 (unknown) (no date) (unknown[facility]) Result panel 41 (unknown) (no date) (unknown[facility]) Result panel 42 (unknown) (no date) (unknown[facility]) Result panel 43 (unknown) (no date) (unknown[facility]) Result panel 44 (unknown) (no date) (unknown[facility]) Result panel 45 (unknown) (no date) (unknown[facility]) Result panel 46 (unknown) (no date) (unknown[facility]) Result panel 47 (unknown) (no date) (unknown[facility]) Result panel 48 (unknown) (no date) (unknown[facility]) Result panel 49 (unknown) (no date) (unknown[facility]) Result panel 50 (unknown) (no date) (unknown[facility] Result panel 51 (unknown) (no date) (unknown[facility]) Result panel 52 (unknown) (no date) (unknown[facility]) Result panel 53 (unknown) (no date) (unknown[facility]) Result panel 54 (unknown) (no date) (unknown[facility] Result panel 55 (unknown) (no date) (unknown[facility]) Result panel 56 (unknown) (no date) (unknown[facility] Result panel 57 (unknown) (no date) (unknown[facility]) Result panel 58 (unknown) (no date) (unknown[facility]) Result panel 59 (unknown) (no date) (unknown[facility]) Result panel 60 (unknown) (no date) (unknown[facility] Result panel 61 (unknown) (no date) (unknown[facility]) Result panel 62 (unknown) (no date) (unknown[facility]) Result panel 63 (unknown) (no date) (unknown[facility]) Result panel 64 (unknown) (no date) (unknown[facility]) Result panel 65 (unknown) (no date) (unknown[facility]) Result panel 66 (unknown) (no date) (unknown[facility]) Result panel 67 (unknown) (no date) (unknown[facility]) Result panel 68 (unknown) (no date) (unknown[facility]) Result panel 69 (unknown) (no date) (unknown[facility]) Result panel 70 (unknown) (no date) (unknown[facility]) Result panel 71 (unknown) (no date) (unknown[facility]) Result panel 72 (unknown) (no date) (unknown[facility]) Result panel 73 (unknown) (no date) (unknown[facility]) Result panel 74 (unknown) (no date) (unknown[facility]) Result panel 75 (unknown) (no date) (unknown[facility]) Result panel 76 (unknown) (no date) (unknown[facility]) Result panel 77 (unknown) (no date) (unknown[facility]) Result panel 78 (unknown) (no date) (unknown[facility]) Result panel 79 (unknown) (no date) (unknown[facility]) Result panel 80 (unknown) (no date) (unknown[facility]) Result panel 81 (unknown) (no date) (unknown[facility]) Result panel 82 (unknown) (no date) (unknown[facility]) Result panel 83 (unknown) (no date) (unknown[facility]) Result panel 84 (unknown) (no date) (unknown[facility]) Result panel 85 (unknown) (no date) (unknown[facility]) Result panel 86 (unknown) (no date) (unknown[facility]) Result panel 87 (unknown) (no date) (unknown[facility]) Result panel 88 (unknown) (no date) (unknown[facility]) Result panel 89 (unknown) (no date) (unknown[facility]) Result panel 90 (unknown) (no date) (unknown[facility] Result panel 91 (unknown) (no date) (unknown[facility]) Result panel 92 (unknown) (no date) (unknown[facility] Result panel 93 (unknown) (no date) (unknown[facility]) Result panel 94 (unknown) (no date) (unknown[facility]) Result panel 95 (unknown) (no date) (unknown[facility]) Result panel 96 (unknown) (no date) (unknown[facility]) Result panel 97 (unknown) (no date) (unknown[facility]) Result panel 98 (unknown) (no date) (unknown[facility]) Result panel 99 (unknown) (no date) (unknown[facility]) Result panel 100 (unknown) (no date) (unknown[facility] Result panel 101 (unknown) (no date) (unknown[facility]) Result panel 102 (unknown) (no date) (unknown[facility]) Result panel 103 (unknown) (no date) (unknown[facility]) Result panel 104 (unknown) (no date) (unknown[facility]) Result panel 105 (unknown) (no date) (unknown[facility]) Result panel 106 (unknown) (no date) (unknown[facility]) Result panel 107 (unknown) (no date) (unknown[facility] Result panel 108 (unknown) (no date) (unknown[facility]) Result panel 109 (unknown) (no date) (unknown[facility]) Result panel 110 (unknown) (no date) (unknown[facility]) Result panel 111 (unknown) (no date) (unknown[facility]) Result panel 112 (unknown) (no date) (unknown[facility]) Result panel 113 (unknown) (no date) (unknown[facility]) Result panel 114 (unknown) (no date) (unknown[facility]) Result panel 115 (unknown) (no date) (unknown[facility]) Result panel 116 (unknown) (no date) (unknown[facility]) Result panel 117 (unknown) (no date) (unknown[facility]) Result panel 118 (unknown) (no date) (unknown[facility] Result panel 119 (unknown) (no date) (unknown[facility]) Result panel 120 (unknown) (no date) (unknown[facility]) Result panel 121 (unknown) (no date) (unknown[facility]) Result panel 122 (unknown) (no date) (unknown[facility]) Result panel 123 (unknown) (no date) (unknown[facility]) Result panel 124 (unknown) (no date) (unknown[facility]) Result panel 125 (unknown) (no date) (unknown[facility]) Result panel 126 (unknown) (no date) (unknown[facility]) Result panel 127 (unknown) (no date) (unknown[facility]) Result panel 128 (unknown) (no date) (unknown[facility]) Result panel 129 (unknown) (no date) (unknown[facility]) Result panel 130 (unknown) (no date) (unknown[facility]) Result panel 131 (unknown) (no date) (unknown[facility]) Result panel 132 (unknown) (no date) (unknown[facility]) Result panel 133 (unknown) (no date) (unknown[facility]) Result panel 134 (unknown) (no date) (unknown[facility]) Result panel 135 (unknown) (no date) (unknown[facility]) Result panel 136 (unknown) (no date) (unknown[facility]) Result panel 137 (unknown) (no date) (unknown[facility]) Result panel 138 (unknown) (no date) (unknown[facility]) Result panel 139 (unknown) (no date) (unknown[facility]) Result panel 140 (unknown) (no date) (unknown[facility]) Result panel 141 (unknown) (no date) (unknown[facility]) Result panel 142 (unknown) (no date) (unknown[facility]) Result panel 143 (unknown) (no date) (unknown[facility]) Result panel 144 (unknown) (no date) (unknown[facility]) Result panel 145 (unknown) (no date) (unknown[facility]) Result panel 146 (unknown) (no date) (unknown[facility]) Result panel 147 (unknown) (no date) (unknown[facility]) Result panel 148 (unknown) (no date) (unknown[facility]) Result panel 149 (unknown) (no date) (unknown[facility]) Result panel 150 (unknown) (no date) (unknown[facility]) Result panel 151 (unknown) (no date) (unknown[facility]) Result panel 152 (unknown) (no date) (unknown[facility]) Result panel 153 (unknown) (no date) (unknown[facility]) Result panel 154 (unknown) (no date) (unknown[facility]) Result panel 155 (unknown) (no date) (unknown[facility]) Result panel 156 (unknown) (no date) (unknown[facility]) Result panel 157 (unknown) (no date) (unknown[facility]) Result panel 158 (unknown) (no date) (unknown[facility] Result panel 159 (unknown) (no date) (unknown[facility]) Result panel 160 (unknown) (no date) (unknown[facility]) Result panel 161 (unknown) (no date) (unknown[facility]) Result panel 162 (unknown) (no date) (unknown[facility]) Result panel 163 (unknown) (no date) (unknown[facility]) Result panel 164 (unknown) (no date) (unknown[facility]) Result panel 165 (unknown) (no date) (unknown[facility]) Result panel 166 (unknown) (no date) (unknown[facility]) Result panel 167 (unknown) (no date) (unknown[facility]) Result panel 168 (unknown) (no date) (unknown[facility]) Result panel 169 (unknown) (no date) (unknown[facility]) Result panel 170 (unknown) (no date) (unknown[facility]) Result panel 171 (unknown) (no date) (unknown[facility] Result panel 172 (unknown) (no date) (unknown[facility]) Result panel 173 (unknown) (no date) (unknown[facility] Result panel 174 (unknown) (no date) (unknown[facility]) Result panel 175 (unknown) (no date) (unknown[facility]) Result panel 176 (unknown) (no date) (unknown[facility] Result panel 177 (unknown) (no date) (unknown[facility]) Result panel 178 (unknown) (no date) (unknown[facility]) Result panel 179 (unknown) (no date) (unknown[facility] Result panel 180 (unknown) (no date) (unknown[facility]) Result panel 181 (unknown) (no date) (unknown[facility]) Result panel 182 (unknown) (no date) (unknown[facility]) Result panel 183 (unknown) (no date) (unknown[facility] Result panel 184 (unknown) (no date) (unknown[facility]) Result panel 185 (unknown) (no date) (unknown[facility]) Result panel 186 (unknown) (no date) (unknown[facility]) Result panel 187 (unknown) (no date) (unknown[facility]) Result panel 188 (unknown) (no date) (unknown[facility] Result panel 189 (unknown) (no date) (unknown[facility]) Result panel 190 (unknown) (no date) (unknown[facility] Result panel 191 (unknown) (no date) (unknown[facility]) Result panel 192 (unknown) (no date) (unknown[facility] Result panel 193 (unknown) (no date) (unknown[facility]) Result panel 194 (unknown) (no date) (unknown[facility]) Result panel 195 (unknown) (no date) (unknown[facility]) Result panel 196 (unknown) (no date) (unknown[facility]) Result panel 197 (unknown) (no date) (unknown[facility]) Result panel 198 (unknown) (no date) (unknown[facility]) Result panel 199 (unknown) (no date) (unknown[facility]) Result panel 200 (unknown) (no date) (unknown[facility]) Result panel 201 (unknown) (no date) (unknown[facility]) Result panel 202 (unknown) (no date) (unknown[facility]) Result panel 203 (unknown) (no date) (unknown[facility]) Result panel 204 (unknown) (no date) (unknown[facility]) Result panel 205 (unknown) (no date) (unknown[facility]) Result panel 206 (unknown) (no date) (unknown[facility]) Result panel 207 (unknown) (no date) (unknown[facility]) Result panel 208 (unknown) (no date) (unknown[facility]) Result panel 209 (unknown) (no date) (unknown[facility]) Result panel 210 (unknown) (no date) (unknown[facility]) Result panel 211 (unknown) (no date) (unknown[facility] Result panel 212 (unknown) (no date) (unknown[facility]) Result panel 213 (unknown) (no date) (unknown[facility]) Result panel 214 (unknown) (no date) (unknown[facility]) Result panel 215 (unknown) (no date) (unknown[facility]) Result panel 216 (unknown) (no date) (unknown[facility]) Result panel 217 (unknown) (no date) (unknown[facility]) Result panel 218 (unknown) (no date) (unknown) (unknown) (no value) (units (un known) unknown) (unknown) (no date) (unknown) (unknown) 09/25/22 (units (unkn own) unknown) (unknown) (no date) (unknown) (unknown) [id number] (units (unk nown) [address] unknown) (unknown) (no date) (unknown) (unknown) : [id number] (units ( unknown) unknown) (unknown) (no date) (unknown) (unknown) Accession (units (unk nown) Number: unknown) [id number] (unknown) (no date) (unknown) (unknown) Age/Sex: 52 / (units (unknown) F Date of unknown) Service: (unknown) (no date) (unknown) (unknown) [place], [place] (units (unknown) [id number] unknown) (unknown) (no date) (unknown) (unknown) Approved by: (units ( unknown) kishor Telles M.D. on 09/25/2022 at 13:13 (unknown) (no date) (unknown) (unknown) Bones and (units (unk nown) chest wall: No unknown) suspicious bony lesions. Overlying soft tissues (unknown) (no date) (unknown) (unknown) [facility], XR CHEST 2V, 06/04/2022, 12:38. (unknown) (no date) (unknown) (unknown) : (units (unkn own) 1970 unknown) Acct:[id number] (unknown) (no date) (unknown) (unknown) Dictated by: (units ( unknown) Janice Arana unknownTomasa Mansfield on 09/25/2022 at 13:12 (unknown) (no date) (unknown) (unknown) FINDINGS: (units (unk nown) unknown) (unknown) (no date) (unknown) (unknown) IMPRESSION: (units (u nknown) Patchy unknown) bilateral opacities suspicious for pneumonia. (unknown) (no date) (unknown) (unknown) INDICATIONS: (units ( unknown) Shortness of unknown) breath (unknown) (no date) (unknown) (unknown) [facility] (unknown) (no date) (unknown) (unknown) Loc: ED (units (unkn own) unknown) (unknown) (no date) (unknown) (unknown) Lungs and (units (unk nown) pleura: Patchy unknown) right middle and lower lobe opacities and to a lesser (unknown) (no date) (unknown) (unknown) Mediastinum: (units ( unknown) Mediastinal unknown) contours appear normal. Heart size is normal. (unknown) (no date) (unknown) (unknown) Ordering (units (unkn own) Provider: unknown) Willie Gilmore MD (unknown) (no date) (unknown) (unknown) PROCEDURE: XR (units (unknown) CHEST 1V unknown) (unknown) (no date) (unknown) (unknown) Patient: (units (unkn own) Bianca Quintanilla unknown) an F MR# (unknown) (no date) (unknown) (unknown) Procedure: XR (units (unknown) chest 1V unknown) (unknown) (no date) (unknown) (unknown) Signed (units (unkn own) unknown) (unknown) (no date) (unknown) (unknown) Surgical (units (unkn own) changes and unknown) devices: Right-sided catheter is present with distal tip (unknown) (no date) (unknown) (unknown) TECHNIQUE: One (units (unknown) view of the unknown) chest was acquired. (unknown) (no date) (unknown) (unknown) XRay Report (units (u nknown) unknown) (unknown) (no date) (unknown) (unknown) appear (units (unkn own) unknown) (unknown) (no date) (unknown) (unknown) degree (units (unkn own) unknown) (unknown) (no date) (unknown) (unknown) over the mid (units ( unknown) SVC. unknown) (unknown) (no date) (unknown) (unknown) projecting (units (un known) unknown) (unknown) (no date) (unknown) (unknown) unremarkable. (units (unknown) unknown) (unknown) (no date) (unknown) (unknown) within the (units (un known) left upper unknown) lobe. Result panel 219 (unknown) (no date) (unknown) (unknown) 13.9 x10 3/ul (unkn own) (unknown) (no date) (unknown) (unknown) 17.4 % (unkn own) (unknown) (no date) (unknown) (unknown) 21.4 pg (unkn own) (unknown) (no date) (unknown) (unknown) 27.7 % (unkn own) (unknown) (no date) (unknown) (unknown) 301 x10 3/ul (unkn own) (unknown) (no date) (unknown) (unknown) 31.4 % (unkn own) (unknown) (no date) (unknown) (unknown) 4.05 x10 6/ul (unkn own) (unknown) (no date) (unknown) (unknown) 68.4 fl (unkn own) (unknown) (no date) (unknown) (unknown) 8.7 g/dl (unkn own) (unknown) (no date) (unknown) (unknown) Flu A NEGATIVE (units (unknown) unknown) (unknown) (no date) (unknown) (unknown) Flu B NEGATIVE (units (unknown) unknown) (unknown) (no date) (unknown) (unknown) Negative (units (unkn own) unknown) (unknown) (no date) (unknown) (unknown) Negative (units (unkn own) unknown) Result panel 220 (unknown) (no (unknown) (unknown) (no value) (units (unk nown) date) unknown) (unknown) (no (unknown) (unknown) 09/25/22 (units (unkno wn) date) 09/25/22 unknown) Range/Units (unknown) (no (unknown) (unknown) 09/25/22 11:54 (units (unknown) date) unknown) (unknown) (no (unknown) (unknown) 09/25/22 11:55 (units (unknown) date) unknown) (unknown) (no (unknown) (unknown) 09/25/22 12:12 (units (unknown) date) unknown) (unknown) (no (unknown) (unknown) 09/25/22 12:14 (units (unknown) date) unknown) (unknown) (no (unknown) (unknown) 09/25/22 12:28 (units (unknown) date) unknown) (unknown) (no (unknown) (unknown) 09/25/22 12:36 (units (unknown) date) unknown) (unknown) (no (unknown) (unknown) 09/25/22 12:44 (units (unknown) date) unknown) (unknown) (no (unknown) (unknown) 09/25/22 (units (unkno wn) date) unknown) (unknown) (no (unknown) (unknown) 1 cap PO DAILY (units (unknown) date) unknown) (unknown) (no (unknown) (unknown) 1 ea INHALATION (units (unknown) date) BID unknown) (unknown) (no (unknown) (unknown) 1 ea INTRANASAL (units (unknown) date) BID unknown) (unknown) (no (unknown) (unknown) 1 tab 1XD (units (unkn own) date) unknown) (unknown) (no (unknown) (unknown) 1 tab DAILY (units (un known) date) unknown) (unknown) (no (unknown) (unknown) 1 tab PO BEDTIME (units (unknown) date) unknown) (unknown) (no (unknown) (unknown) 1 tab PO QID (units (u nknown) date) unknown) (unknown) (no (unknown) (unknown) 1.6 (units (unkno wn) date) unknown) (unknown) (no (unknown) (unknown) 11:49 09/25/22 (units (unknown) date) unknown) (unknown) (no (unknown) (unknown) 11:55 12:28 (units (un known) date) unknown) (unknown) (no (unknown) (unknown) 12 point review (units (unknown) date) of systems is unknown) negative except for those stated above (unknown) (no (unknown) (unknown) 12:12 09/25/22 (units (unknown) date) unknown) (unknown) (no (unknown) (unknown) 12:13 09/25/22 (units (unknown) date) unknown) (unknown) (no (unknown) (unknown) 12:13 (units (unkno wn) date) unknown) (unknown) (no (unknown) (unknown) 12:15 09/25/22 (units (unknown) date) unknown) (unknown) (no (unknown) (unknown) 12:27 09/25/22 (units (unknown) date) unknown) (unknown) (no (unknown) (unknown) 12:27 (units (unkno wn) date) unknown) (unknown) (no (unknown) (unknown) 12:30 09/25/22 (units (unknown) date) unknown) (unknown) (no (unknown) (unknown) 12:31 (units (unkno wn) date) unknown) (unknown) (no (unknown) (unknown) 18.4 seconds (unkno wn) date) (unknown) (no (unknown) (unknown) 18.4 seconds (unkno wn) date) (unknown) (no (unknown) (unknown) 2 puff (units (unkno wn) date) INHALATION Q4HR unknown) PRN (Reason: Shortness Of Breath) (unknown) (no (unknown) (unknown) 2 tab PO BEDTIME (units (unknown) date) unknown) (unknown) (no (unknown) (unknown) 2 tab PO TID (units (u nknown) date) unknown) (unknown) (no (unknown) (unknown) Addiction, opium (units (unknown) date) unknown) (unknown) (no (unknown) (unknown) Age/Sex: 52 / F (units (unknown) date) unknown) (unknown) (no (unknown) (unknown) Albuterol/Ipratr (units (unknown) date) opium unknown) (Albuterol/Ipratr opium 3 Ml Ampul) 6 ml INH NOW ONE (unknown) (no (unknown) (unknown) Allergies (units (unkn own) date) unknown) (unknown) (no (unknown) (unknown) Allergy/AdvReac (units (unknown) date) Type Severity unknown) Reaction Status Date / Time (unknown) (no (unknown) (unknown) BACK: Nontender (units (unknown) date) without deformity unknown) or crepitance. No flank tenderness. (unknown) (no (unknown) (unknown) Baso # (Auto) (units ( unknown) date) Not Reportable unknown) (unknown) (no (unknown) (unknown) Baso % (Auto) (units ( unknown) date) Not Reportable unknown) (unknown) (no (unknown) (unknown) Blood Pressure (units (unknown) date) 94/54 L 99/52 L unknown) (unknown) (no (unknown) (unknown) Blood Pressure (units (unknown) date) 96/60 09/25/22 unknown) 11:49 (unknown) (no (unknown) (unknown) Blood Pressure (units (unknown) date) 96/60 85/52 L unknown) (unknown) (no (unknown) (unknown) Blood Pressure (units (unknown) date) unknown) (unknown) (no (unknown) (unknown) CARDIOVASCULAR: (units (unknown) date) Denies chest unknown) pain, palpitations, orthopnea, edema, (unknown) (no (unknown) (unknown) CARDIOVASCULAR: (units (unknown) date) Regular rate and unknown) rhythm without murmurs, gallops, or rubs. Mild (unknown) (no (unknown) (unknown) Cachexia (units (unkno wn) date) unknown) (unknown) (no (unknown) (unknown) Chief Complaint: (units (unknown) date) Upper Respiratory unknown) Symptoms (unknown) (no (unknown) (unknown) Complete Blood (units (unknown) date) Count AUTO DIFF unknown) Stat (unknown) (no (unknown) (unknown) Comprehensive (units ( unknown) date) Metabolic Panel unknown) Stat (unknown) (no (unknown) (unknown) Course (units (unkno wn) date) unknown) (unknown) (no (unknown) (unknown) Covid-19 + FLU (units (unknown) date) A/B + RSV - PCR unknown) Stat (unknown) (no (unknown) (unknown) D Dimer Stat (units (u nknown) date) unknown) (unknown) (no (unknown) (unknown) : 1970 (units (unknown) date) Acct:[id number] unknown) (unknown) (no (unknown) (unknown) Date of Service: (units (unknown) date) 09/25/22 unknown) (unknown) (no (unknown) (unknown) Departure (units (unkn own) date) unknown) (unknown) (no (unknown) (unknown) Discharge Plan (units (unknown) date) unknown) (unknown) (no (unknown) (unknown) Discontinued (units (u nknown) date) Medications unknown) (unknown) (no (unknown) (unknown) ED Orders (units (unkn own) date) unknown) (unknown) (no (unknown) (unknown) EKG-12 Lead Stat (units (unknown) date) unknown) (unknown) (no (unknown) (unknown) ENT: Nose (units (unkn own) date) without bleeding, unknown) purulent drainage. Throat without erythema, (unknown) (no (unknown) (unknown) ER Physician: (units ( unknown) date) Bethel Flynn P.A-C unknown) (unknown) (no (unknown) (unknown) EXTREMITIES: No (units (unknown) date) edema or joint unknown) tenderness. (unknown) (no (unknown) (unknown) EYES: Pupils (units (u nknown) date) equal round and unknown) reactive. Extraocular motions intact. No scleral (unknown) (no (unknown) (unknown) Emergency Report (units (unknown) date) unknown) (unknown) (no (unknown) (unknown) Eos % (Auto) Not (units (unknown) date) Reportable unknown) (unknown) (no (unknown) (unknown) Exam Narrative: (units (unknown) date) unknown) (unknown) (no (unknown) (unknown) Exam (units (unkno wn) date) unknown) (unknown) (no (unknown) (unknown) GASTROINTESTINAL (units (unknown) date) : Abdomen soft, unknown) non-tender, nondistended. (unknown) (no (unknown) (unknown) GASTROINTESTINAL (units (unknown) date) : Denies nausea, unknown) vomiting, abdominal pain, diarrhea, (unknown) (no (unknown) (unknown) GENERAL: Denies (units (unknown) date) chills, fatigue, unknown) malaise, fever, sweats. (unknown) (no (unknown) (unknown) GENERAL: (units (unkno wn) date) Well-developed unknown) patient, in mild distress. (unknown) (no (unknown) (unknown) : Denies (units (unk nown) date) dysuria, unknown) frequency, incontinence, hematuria, urinary retention. (unknown) (no (unknown) (unknown) Gastroparesis (units ( unknown) date) unknown) (unknown) (no (unknown) (unknown) General (units (unkno wn) date) unknown) (unknown) (no (unknown) (unknown) HEAD: (units (unkno wn) date) Atraumatic. unknown) Normocephalic. (unknown) (no (unknown) (unknown) HEENT: Denies (units ( unknown) date) sinus pain, ear unknown) pain, sore throat, difficulty swallowing, (unknown) (no (unknown) (unknown) HPI - URI/Sore (units (unknown) date) Throat unknown) (unknown) (no (unknown) (unknown) HPI Narrative: (units (unknown) date) unknown) (unknown) (no (unknown) (unknown) Hct 27.7 L (units (unk nown) date) (36-46) % unknown) (unknown) (no (unknown) (unknown) Hgb 8.7 L (units (unkn own) date) (12.0-16.0) g/dL unknown) (unknown) (no (unknown) (unknown) History of (units (unk nown) date) Present Illness unknown) (unknown) (no (unknown) (unknown) History of (units (unk nown) date) gastrectomy unknown) (unknown) (no (unknown) (unknown) Home Medications (units (unknown) date) unknown) (unknown) (no (unknown) (unknown) INHALE 1 PUFF BY (units (unknown) date) MOUTH TWICE unknown) DAILY. RINSE MOUTH AFTER USE (unknown) (no (unknown) (unknown) Influenza A (units (un known) date) (RT-PCR) Flu a unknown) negative (NEGATIVE) (unknown) (no (unknown) (unknown) Influenza B (units (un known) date) (RT-PCR) Flu b unknown) negative (NEGATIVE) (unknown) (no (unknown) (unknown) Initial Vital (units ( unknown) date) Signs unknown) (unknown) (no (unknown) (unknown) Initial Vital (units ( unknown) date) Signs: unknown) (unknown) (no (unknown) (unknown) [facility] (units (unknown) date) [address] unknown) [place] [address] (unknown) (no (unknown) (unknown) Lab Data (units (unkno wn) date) unknown) (unknown) (no (unknown) (unknown) Lab Results (units (un known) date) unknown) (unknown) (no (unknown) (unknown) Labs: (units (unkno wn) date) unknown) (unknown) (no (unknown) (unknown) Lactate (Lactic (units (unknown) date) Acid) Stat unknown) (unknown) (no (unknown) (unknown) Lymph # (Auto) (units (unknown) date) Not Reportable unknown) (unknown) (no (unknown) (unknown) Lymph % (Auto) (units (unknown) date) Not Reportable unknown) (unknown) (no (unknown) (unknown) [id number] (units (unk nown) date) unknown) (unknown) (no (unknown) (unknown) MCH 21.4 L (units (unk nown) date) (26-34) PG unknown) (unknown) (no (unknown) (unknown) MCHC 31.4 (units (unkn own) date) (30-36) % unknown) (unknown) (no (unknown) (unknown) MCV 68.4 L (units (unk nown) date) (80-100) fL unknown) (unknown) (no (unknown) (unknown) MDM - URI/Sore (units (unknown) date) Throat unknown) (unknown) (no (unknown) (unknown) MUSCULOSKELETAL: (units (unknown) date) denies weakness, unknown) joint pain, or bony pain (unknown) (no (unknown) (unknown) Measure peak (units (u nknown) date) expiratory flow unknown) ONCE (unknown) (no (unknown) (unknown) Medical History (units (unknown) date) (Reviewed unknown) 06/09/22 @ 13:35 by Madie Polo MD) (unknown) (no (unknown) (unknown) Medication (units (unk nown) date) Instructions unknown) Recorded Confirmed (unknown) (no (unknown) (unknown) Mode of arrival: (units (unknown) date) Wheelchair unknown) (unknown) (no (unknown) (unknown) Hyde # (Auto) (units ( unknown) date) Not Reportable unknown) (unknown) (no (unknown) (unknown) Hyde % (Auto) (units ( unknown) date) Not Reportable unknown) (unknown) (no (unknown) (unknown) NECK: Tr[place]a (units ( unknown) date) midline. Non unknown) tender (unknown) (no (unknown) (unknown) NEURO: AOx3. (units (u nknown) date) unknown) (unknown) (no (unknown) (unknown) NEUROLOGIC: (units (un known) date) Denies weakness, unknown) headache, numbness, change in speech, confusion, (unknown) (no (unknown) (unknown) NT-proBNP (units (unkn own) date) (BNP-Adult 18+) unknown) Stat (unknown) (no (unknown) (unknown) Narrative (units (unkn own) date) unknown) (unknown) (no (unknown) (unknown) Narrative: (units (unk nown) date) unknown) (unknown) (no (unknown) (unknown) Neut % (Auto) (units ( unknown) date) Not Reportable unknown) (unknown) (no (unknown) (unknown) No Action (units (unkn own) date) unknown) (unknown) (no (unknown) (unknown) On parenteral (units ( unknown) date) nutrition unknown) (unknown) (no (unknown) (unknown) Ordered: (units (unkno wn) date) unknown) (unknown) (no (unknown) (unknown) Orders (units (unkno wn) date) unknown) (unknown) (no (unknown) (unknown) Oxygen Delivery (units (unknown) date) Method Room Air unknown) 09/25/22 11:49 (unknown) (no (unknown) (unknown) Oxygen Delivery (units (unknown) date) Method Room Air unknown) (unknown) (no (unknown) (unknown) Oxygen Delivery (units (unknown) date) Method unknown) (unknown) (no (unknown) (unknown) PSYCHIATRIC: No (units (unknown) date) concerning unknown) psychosocial issues. (unknown) (no (unknown) (unknown) Patient (units (unkno wn) date) Comments: unknown) (unknown) (no (unknown) (unknown) Patient History (units (unknown) date) unknown) (unknown) (no (unknown) (unknown) Patient: (units (unkno wn) date) Reg Quintanilla unknown) F MR#: (unknown) (no (unknown) (unknown) Penicillins (units (un known) date) Allergy Severe unknown) Anaphylaxis Verified 09/25/22 11:49 (unknown) (no (unknown) (unknown) Plt Count 301 (units ( unknown) date) (150-400) X103/uL unknown) (unknown) (no (unknown) (unknown) Prescriptions: (units (unknown) date) unknown) (unknown) (no (unknown) (unknown) Prothrombin Time (units (unknown) date) INR Stat unknown) (unknown) (no (unknown) (unknown) Pulse Oximetry (units (unknown) date) 98 09/25/22 11:49 unknown) (unknown) (no (unknown) (unknown) Pulse Oximetry (units (unknown) date) 98 98 unknown) (unknown) (no (unknown) (unknown) Pulse Oximetry (units (unknown) date) 98 99 98 unknown) (unknown) (no (unknown) (unknown) Pulse Oximetry (units (unknown) date) 98 unknown) (unknown) (no (unknown) (unknown) Pulse Rate 65 (units ( unknown) date) unknown) (unknown) (no (unknown) (unknown) Pulse Rate 67 (units ( unknown) date) unknown) (unknown) (no (unknown) (unknown) Pulse Rate 69 (units ( unknown) date) 09/25/22 11:49 unknown) (unknown) (no (unknown) (unknown) Pulse Rate 69 68 (units (unknown) date) 68 unknown) (unknown) (no (unknown) (unknown) Pulse Rate 69 71 (units (unknown) date) unknown) (unknown) (no (unknown) (unknown) RBC 4.05 (units (unkno wn) date) (4.0-5.2) X106/uL unknown) (unknown) (no (unknown) (unknown) RDW 17.4 H (units (unk nown) date) (11.6-14.8) % unknown) (unknown) (no (unknown) (unknown) RESPIRATORY: (units (un known) date) Clear to unknown) auscultation. Breath sounds equal bilaterally. No wheezes, (unknown) (no (unknown) (unknown) RESPIRATORY: (units (u nknown) date) Reports shortness unknown) of breath (unknown) (no (unknown) (unknown) RSV (PCR) (units (unkn own) date) Negative unknown) (Negative) (unknown) (no (unknown) (unknown) RT Consult Eval (units (unknown) date) and Treat NOW unknown) (unknown) (no (unknown) (unknown) Referrals: (units (unk nown) date) unknown) (unknown) (no (unknown) (unknown) Related Data (units (u nknown) date) unknown) (unknown) (no (unknown) (unknown) Respiratory Rate (units (unknown) date) 16 09/25/22 11:49 unknown) (unknown) (no (unknown) (unknown) Respiratory Rate (units (unknown) date) 16 unknown) (unknown) (no (unknown) (unknown) Respiratory Rate (units (unknown) date) 17 unknown) (unknown) (no (unknown) (unknown) Respiratory Rate (units (unknown) date) 18 unknown) (unknown) (no (unknown) (unknown) Respiratory Rate (units (unknown) date) unknown) (unknown) (no (unknown) (unknown) Review of (units (unkn own) date) Systems unknown) (unknown) (no (unknown) (unknown) SARS-CoV-2 (PCR) (units (unknown) date) Negative unknown) (Negative) (unknown) (no (unknown) (unknown) SHAKE LIQUID AND (units (unknown) date) USE 1 SPRAY IN unknown) EACH NOSTRIL TWICE DAILY (unknown) (no (unknown) (unknown) SKIN: Denies (units (u nknown) date) rash, skin unknown) lesions, or other (unknown) (no (unknown) (unknown) SKIN: No rash or (units (unknown) date) erythema of unknown) visible areas (unknown) (no (unknown) (unknown) Seizure disorder (units (unknown) date) unknown) (unknown) (no (unknown) (unknown) She has some (units (u nknown) date) mild chest pain unknown) with deep inspiration. Patient has a history of (unknown) (no (unknown) (unknown) Signed By: (units (unk nown) date) unknown) (unknown) (no (unknown) (unknown) Smoking Status: (units (unknown) date) Former smoker unknown) (unknown) (no (unknown) (unknown) Social History (units (unknown) date) (Reviewed unknown) 06/09/22 @ 13:35 by Madie Polo MD) (unknown) (no (unknown) (unknown) Source: patient (units (unknown) date) unknown) (unknown) (no (unknown) (unknown) Stated (units (unkno wn) date) Complaint: asthma unknown) is kicking butt, weak, needs iron (unknown) (no (unknown) (unknown) Stop: 09/25/22 (units (unknown) date) 12:44 unknown) (unknown) (no (unknown) (unknown) Substance Use (units ( unknown) date) Type: does not unknown) use (unknown) (no (unknown) (unknown) TAKE 1 CAPSULE (units (unknown) date) BY MOUTH EVERY unknown) DAY (unknown) (no (unknown) (unknown) TAKE 1 TABLET BY (units (unknown) date) MOUTH AT BEDTIME unknown) (unknown) (no (unknown) (unknown) TAKE 1 TABLET BY (units (unknown) date) MOUTH EVERY DAY unknown) (unknown) (no (unknown) (unknown) TAKE 1 TABLET BY (units (unknown) date) MOUTH FOUR TIMES unknown) DAILY NEEDED (unknown) (no (unknown) (unknown) TAKE 2 TABLETS (units (unknown) date) BY MOUTH AT unknown) BEDTIME (unknown) (no (unknown) (unknown) TAKE 2 TABLETS (units (unknown) date) BY MOUTH THREE unknown) TIMES DAILY NEEDED (unknown) (no (unknown) (unknown) Temperature 97.4 (units (unknown) date) F L 09/25/22 unknown) 11:49 (unknown) (no (unknown) (unknown) Temperature 97.4 (units (unknown) date) F L unknown) (unknown) (no (unknown) (unknown) Temperature (units (un known) date) unknown) (unknown) (no (unknown) (unknown) This is a (units (unkno wn) date) 52-year-old unknown) female presents to the emergency department complaining of (unknown) (no (unknown) (unknown) Time Seen by (units (u nknown) date) Provider: unknown) 09/25/22 12:33 (unknown) (no (unknown) (unknown) Troponin I Stat (units (unknown) date) unknown) (unknown) (no (unknown) (unknown) USE 2 PUFFS BY (units (unknown) date) MOUTH EVERY 4-6 unknown) HOURS. (unknown) (no (unknown) (unknown) Urinalysis and (units (unknown) date) Microscopic Stat unknown) (unknown) (no (unknown) (unknown) Vital Signs - 8 (units (unknown) date) hr unknown) (unknown) (no (unknown) (unknown) Vital Signs (units (un known) date) unknown) (unknown) (no (unknown) (unknown) Vital signs: (units (u nknown) date) unknown) (unknown) (no (unknown) (unknown) WBC 13.9 H (units (unk nown) date) (4.5-11.0) unknown) X103/uL (unknown) (no (unknown) (unknown) XR chest 1V Stat (units (unknown) date) unknown) (unknown) (no (unknown) (unknown) Shaneka García, (units (unknown) date) MD [Primary Care unknown) Provider] (unknown) (no (unknown) (unknown) [Embedded Image (units (unknown) date) Not Available] unknown) (unknown) (no (unknown) (unknown) aerosol inhaler (units (unknown) date) Shortness Of unknown) Breath (unknown) (no (unknown) (unknown) albuterol (units (unkn own) date) sulfate 90 unknown) mcg/actuation 2 puff inhalation Q4HR PRN 01/10/22 04/30/22 (unknown) (no (unknown) (unknown) albuterol (units (unkn own) date) sulfate 90 unknown) mcg/actuation HFA aerosol inhaler (unknown) (no (unknown) (unknown) alcohol intake: (units (unknown) date) never unknown) (unknown) (no (unknown) (unknown) asthma and has (units (unknown) date) been using her unknown) albuterol inhaler as prescribed without (unknown) (no (unknown) (unknown) baclofen 10 mg (units (unknown) date) tablet 1 tab PO unknown) QID 01/10/22 04/30/22 (unknown) (no (unknown) (unknown) baclofen 10 mg (units (unknown) date) tablet unknown) (unknown) (no (unknown) (unknown) cetirizine 10 mg (units (unknown) date) tablet 1 tab PO unknown) BEDTIME 01/10/22 04/30/22 (unknown) (no (unknown) (unknown) cetirizine 10 mg (units (unknown) date) tablet unknown) (unknown) (no (unknown) (unknown) chlorhexidine (units ( unknown) date) Allergy unknown) Intermediate Rash Verified 09/25/22 11:49 (unknown) (no (unknown) (unknown) constipation, (units ( unknown) date) melena. unknown) (unknown) (no (unknown) (unknown) device (units (unkno wn) date) unknown) (unknown) (no (unknown) (unknown) dextroamphetamin (units (unknown) date) e-amphetamine 20 unknown) 1 tab 1XD 05/02/22 05/02/22 (unknown) (no (unknown) (unknown) dextroamphetamin (units (unknown) date) e-amphetamine 20 unknown) mg tablet (unknown) (no (unknown) (unknown) dizziness. (units (unk nown) date) unknown) (unknown) (no (unknown) (unknown) duloxetine 60 mg (units (unknown) date) capsule,delayed 1 unknown) cap PO DAILY 01/10/22 04/30/22 (unknown) (no (unknown) (unknown) duloxetine 60 mg (units (unknown) date) capsule,delayed unknown) release(DR/EC) (unknown) (no (unknown) (unknown) fevers, (units (unkno wn) date) abdominal pain, unknown) significant chest pain, headaches, slurred speech, (unknown) (no (unknown) (unknown) fluticasone 250 (units (unknown) date) mcg-salmeterol 50 unknown) 1 ea inhalation BID 01/10/22 04/30/22 (unknown) (no (unknown) (unknown) fluticasone (units (un known) date) propion-salmetero unknown) l [César Inhub] 250-50 mcg/dose blister with (unknown) (no (unknown) (unknown) fluticasone (units (un known) date) propionate 50 1 unknown) ea intranasal BID 01/10/22 04/30/22 (unknown) (no (unknown) (unknown) fluticasone (units (un known) date) propionate 50 unknown) mcg/actuation spray,suspension (unknown) (no (unknown) (unknown) household (units (unkn own) date) members: none unknown) (unknown) (no (unknown) (unknown) hydroxyzine HCl (units (unknown) date) 50 mg tablet 2 unknown) tab PO TID 01/10/22 04/30/22 (unknown) (no (unknown) (unknown) hydroxyzine HCl (units (unknown) date) 50 mg tablet unknown) (unknown) (no (unknown) (unknown) icterus. No (units (un known) date) injection or unknown) drainage. (unknown) (no (unknown) (unknown) inhalation (units (unk nown) date) ([employer]) unknown) (unknown) (no (unknown) (unknown) lamotrigine 200 (units (unknown) date) mg tablet 2 tab unknown) PO BEDTIME 01/10/22 04/30/22 (unknown) (no (unknown) (unknown) lamotrigine 200 (units (unknown) date) mg tablet unknown) (unknown) (no (unknown) (unknown) lidocaine (units (unkn own) date) AdvReac unknown) Intermediate Verified 09/25/22 11:49 (unknown) (no (unknown) (unknown) mcg/actuation (units ( unknown) date) nasal unknown) (unknown) (no (unknown) (unknown) mcg/dose blistr (units (unknown) date) powdr for unknown) (unknown) (no (unknown) (unknown) meloxicam 15 mg (units (unknown) date) tablet 1 tab unknown) DAILY 01/10/22 04/30/22 (unknown) (no (unknown) (unknown) meloxicam 15 mg (units (unknown) date) tablet unknown) (unknown) (no (unknown) (unknown) mg tablet (units (unkn own) date) unknown) (unknown) (no (unknown) (unknown) not recall any (units (unknown) date) specific event unknown) that caused the worsening shortness of breath. (unknown) (no (unknown) (unknown) pain with (units (unkn own) date) palpation of the unknown) chest (unknown) (no (unknown) (unknown) rales, or (units (unkn own) date) rhonchi. unknown) (unknown) (no (unknown) (unknown) release (units (unkno wn) date) unknown) (unknown) (no (unknown) (unknown) seizures, (units (unkn own) date) incoordination. unknown) (unknown) (no (unknown) (unknown) significant (units (un known) date) relief causing unknown) her come in. She denies any nausea, vomiting, (unknown) (no (unknown) (unknown) spray,suspension (units (unknown) date) unknown) (unknown) (no (unknown) (unknown) tonsillar (units (unkn own) date) hypertrophy or unknown) exudate. Airway patent. (unknown) (no (unknown) (unknown) tox [Urine Drug (units (unknown) date) Screen, Rapid] unknown) Stat (unknown) (no (unknown) (unknown) vancomycin (units (unk nown) date) AdvReac Verified unknown) 09/25/22 11:49 (unknown) (no (unknown) (unknown) weakness, or any (units (unknown) date) other concerning unknown) signs or symptoms. (unknown) (no (unknown) (unknown) worsening acute (units (unknown) date) on chronic unknown) shortness of breath onset 2 days ago. Patient does Result panel 221 (unknown) (no (unknown) (unknown) (no value) (units (unk nown) date) unknown) (unknown) (no (unknown) (unknown) * Clinical (units (unk nown) date) Decision unknown) Rules/Scores evaluated: [ ] (unknown) (no (unknown) (unknown) * Independent (units ( unknown) date) discussions with: unknown) [ ] (unknown) (no (unknown) (unknown) * My imgaing (units (u nknown) date) interpretation: [ unknown) ] (unknown) (no (unknown) (unknown) * My lab (units (unkno wn) date) interpretation: [ unknown) ] (unknown) (no (unknown) (unknown) * Prior records (units (unknown) date) reviewed: Patient unknown) was last seen here 4 months ago for an IV (unknown) (no (unknown) (unknown) * differential (units (unknown) date) diagnosis unknown) includes but not limited to [ ] (unknown) (no (unknown) (unknown) 09/25/22 (units (unkno wn) date) 09/25/22 09/25/22 unknown) Range/Units (unknown) (no (unknown) (unknown) 09/25/22 11:54 (units (unknown) date) unknown) (unknown) (no (unknown) (unknown) 09/25/22 11:55 (units (unknown) date) unknown) (unknown) (no (unknown) (unknown) 09/25/22 12:12 (units (unknown) date) unknown) (unknown) (no (unknown) (unknown) 09/25/22 12:14 (units (unknown) date) unknown) (unknown) (no (unknown) (unknown) 09/25/22 12:28 (units (unknown) date) unknown) (unknown) (no (unknown) (unknown) 09/25/22 12:36 (units (unknown) date) unknown) (unknown) (no (unknown) (unknown) 09/25/22 12:44 (units (unknown) date) unknown) (unknown) (no (unknown) (unknown) 09/25/22 (units (unkno wn) date) unknown) (unknown) (no (unknown) (unknown) 1 cap PO DAILY (units (unknown) date) unknown) (unknown) (no (unknown) (unknown) 1 ea INHALATION (units (unknown) date) BID unknown) (unknown) (no (unknown) (unknown) 1 ea INTRANASAL (units (unknown) date) BID unknown) (unknown) (no (unknown) (unknown) 1 tab 1XD (units (unkn own) date) unknown) (unknown) (no (unknown) (unknown) 1 tab DAILY (units (un known) date) unknown) (unknown) (no (unknown) (unknown) 1 tab PO BEDTIME (units (unknown) date) unknown) (unknown) (no (unknown) (unknown) 1 tab PO QID (units (u nknown) date) unknown) (unknown) (no (unknown) (unknown) 11:49 09/25/22 (units (unknown) date) unknown) (unknown) (no (unknown) (unknown) 11:55 12:28 (units (un known) date) 12:28 unknown) (unknown) (no (unknown) (unknown) 12 point review (units (unknown) date) of systems is unknown) negative except for those stated above (unknown) (no (unknown) (unknown) 12:12 09/25/22 (units (unknown) date) unknown) (unknown) (no (unknown) (unknown) 12:13 09/25/22 (units (unknown) date) unknown) (unknown) (no (unknown) (unknown) 12:13 (units (unkno wn) date) unknown) (unknown) (no (unknown) (unknown) 12:15 09/25/22 (units (unknown) date) unknown) (unknown) (no (unknown) (unknown) 12:27 09/25/22 (units (unknown) date) unknown) (unknown) (no (unknown) (unknown) 12:27 (units (unkno wn) date) unknown) (unknown) (no (unknown) (unknown) 12:30 09/25/22 (units (unknown) date) unknown) (unknown) (no (unknown) (unknown) 12:31 (units (unkno wn) date) unknown) (unknown) (no (unknown) (unknown) 2 puff (units (unkno wn) date) INHALATION Q4HR unknown) PRN (Reason: Shortness Of Breath) (unknown) (no (unknown) (unknown) 2 tab PO BEDTIME (units (unknown) date) unknown) (unknown) (no (unknown) (unknown) 2 tab PO TID (units (u nknown) date) unknown) (unknown) (no (unknown) (unknown) 2.6 mmol/l (unkno wn) date) (unknown) (no (unknown) (unknown) Addiction, opium (units (unknown) date) unknown) (unknown) (no (unknown) (unknown) Age/Sex: 52 / F (units (unknown) date) unknown) (unknown) (no (unknown) (unknown) Albuterol/Ipratr (units (unknown) date) opium unknown) (Albuterol/Ipratr opium 3 Ml Ampul) 6 ml INH NOW ONE (unknown) (no (unknown) (unknown) Allergies (units (unkn own) date) unknown) (unknown) (no (unknown) (unknown) Allergy/AdvReac (units (unknown) date) Type Severity unknown) Reaction Status Date / Time (unknown) (no (unknown) (unknown) BACK: Nontender (units (unknown) date) without deformity unknown) or crepitance. No flank tenderness. (unknown) (no (unknown) (unknown) Baso # (Auto) (units ( unknown) date) Not Reportable unknown) (unknown) (no (unknown) (unknown) Baso % (Auto) (units ( unknown) date) Not Reportable unknown) (unknown) (no (unknown) (unknown) Blood Pressure (units (unknown) date) 94/54 L 99/52 L unknown) (unknown) (no (unknown) (unknown) Blood Pressure (units (unknown) date) 96/60 09/25/22 unknown) 11:49 (unknown) (no (unknown) (unknown) Blood Pressure (units (unknown) date) 96/60 85/52 L unknown) (unknown) (no (unknown) (unknown) Blood Pressure (units (unknown) date) unknown) (unknown) (no (unknown) (unknown) CARDIOVASCULAR: (units (unknown) date) Denies chest unknown) pain, palpitations, orthopnea, edema, (unknown) (no (unknown) (unknown) CARDIOVASCULAR: (units (unknown) date) Regular rate and unknown) rhythm without murmurs, gallops, or rubs. Mild (unknown) (no (unknown) (unknown) Cachexia (units (unkno wn) date) unknown) (unknown) (no (unknown) (unknown) Chief Complaint: (units (unknown) date) Upper Respiratory unknown) Symptoms (unknown) (no (unknown) (unknown) Complete Blood (units (unknown) date) Count AUTO DIFF unknown) Stat (unknown) (no (unknown) (unknown) Comprehensive (units ( unknown) date) Metabolic Panel unknown) Stat (unknown) (no (unknown) (unknown) Course (units (unkno wn) date) unknown) (unknown) (no (unknown) (unknown) Covid-19 + FLU (units (unknown) date) A/B + RSV - PCR unknown) Stat (unknown) (no (unknown) (unknown) D Dimer Stat (units (u nknown) date) unknown) (unknown) (no (unknown) (unknown) : 1970 (units (unknown) date) Acct:[id number] unknown) (unknown) (no (unknown) (unknown) Date of Service: (units (unknown) date) 09/25/22 unknown) (unknown) (no (unknown) (unknown) Departure (units (unkn own) date) unknown) (unknown) (no (unknown) (unknown) Discharge Plan (units (unknown) date) unknown) (unknown) (no (unknown) (unknown) Discontinued (units (u nknown) date) Medications unknown) (unknown) (no (unknown) (unknown) Disposition: [ ] (units (unknown) date) unknown) (unknown) (no (unknown) (unknown) ED Course: [ ] (units (unknown) date) unknown) (unknown) (no (unknown) (unknown) ED Orders (units (unkn own) date) unknown) (unknown) (no (unknown) (unknown) EKG-12 Lead Stat (units (unknown) date) unknown) (unknown) (no (unknown) (unknown) ENT: Nose (units (unkn own) date) without bleeding, unknown) purulent drainage. Throat without erythema, (unknown) (no (unknown) (unknown) ER Physician: (units ( unknown) date) Bethel Flynn P.A-C unknown) (unknown) (no (unknown) (unknown) EXTREMITIES: No (units (unknown) date) edema or joint unknown) tenderness. (unknown) (no (unknown) (unknown) EYES: Pupils (units (u nknown) date) equal round and unknown) reactive. Extraocular motions intact. No scleral (unknown) (no (unknown) (unknown) Emergency Report (units (unknown) date) unknown) (unknown) (no (unknown) (unknown) Eos % (Auto) Not (units (unknown) date) Reportable unknown) (unknown) (no (unknown) (unknown) Exam Narrative: (units (unknown) date) unknown) (unknown) (no (unknown) (unknown) Exam (units (unkno wn) date) unknown) (unknown) (no (unknown) (unknown) GASTROINTESTINAL (units (unknown) date) : Abdomen soft, unknown) non-tender, nondistended. (unknown) (no (unknown) (unknown) GASTROINTESTINAL (units (unknown) date) : Denies nausea, unknown) vomiting, abdominal pain, diarrhea, (unknown) (no (unknown) (unknown) GENERAL: Denies (units (unknown) date) chills, fatigue, unknown) malaise, fever, sweats. (unknown) (no (unknown) (unknown) GENERAL: (units (unkno wn) date) Well-developed unknown) patient, in mild distress. (unknown) (no (unknown) (unknown) : Denies (units (unk nown) date) dysuria, unknown) frequency, incontinence, hematuria, urinary retention. (unknown) (no (unknown) (unknown) Gastroparesis (units ( unknown) date) unknown) (unknown) (no (unknown) (unknown) General (units (unkno wn) date) unknown) (unknown) (no (unknown) (unknown) HEAD: (units (unkno wn) date) Atraumatic. unknown) Normocephalic. (unknown) (no (unknown) (unknown) HEENT: Denies (units ( unknown) date) sinus pain, ear unknown) pain, sore throat, difficulty swallowing, (unknown) (no (unknown) (unknown) HPI - URI/Sore (units (unknown) date) Throat unknown) (unknown) (no (unknown) (unknown) HPI Narrative: (units (unknown) date) unknown) (unknown) (no (unknown) (unknown) Hct 27.7 L (units (unk nown) date) (36-46) % unknown) (unknown) (no (unknown) (unknown) Hgb 8.7 L (units (unkn own) date) (12.0-16.0) g/dL unknown) (unknown) (no (unknown) (unknown) History of (units (unk nown) date) Present Illness unknown) (unknown) (no (unknown) (unknown) History of (units (unk nown) date) gastrectomy unknown) (unknown) (no (unknown) (unknown) Home Medications (units (unknown) date) unknown) (unknown) (no (unknown) (unknown) INHALE 1 PUFF BY (units (unknown) date) MOUTH TWICE unknown) DAILY. RINSE MOUTH AFTER USE (unknown) (no (unknown) (unknown) INR 1.6 H (units (unkn own) date) (0.9-1.3) unknown) (unknown) (no (unknown) (unknown) Influenza A (units (un known) date) (RT-PCR) Flu a unknown) negative (NEGATIVE) (unknown) (no (unknown) (unknown) Influenza B (units (un known) date) (RT-PCR) Flu b unknown) negative (NEGATIVE) (unknown) (no (unknown) (unknown) Initial Vital (units ( unknown) date) Signs unknown) (unknown) (no (unknown) (unknown) Initial Vital (units ( unknown) date) Signs: unknown) (unknown) (no (unknown) (unknown) [facility] (units (unknown) date) [address] [place] [address] unknown) [place] [address] (unknown) (no (unknown) (unknown) Lab Data (units (unkno wn) date) unknown) (unknown) (no (unknown) (unknown) Lab Results (units (un known) date) unknown) (unknown) (no (unknown) (unknown) Labs: (units (unkno wn) date) unknown) (unknown) (no (unknown) (unknown) Lactate (Lactic (units (unknown) date) Acid) Stat unknown) (unknown) (no (unknown) (unknown) Last Admin: (units (un known) date) 09/25/22 12:49 unknown) Dose: 6 ml (unknown) (no (unknown) (unknown) Lymph # (Auto) (units (unknown) date) Not Reportable unknown) (unknown) (no (unknown) (unknown) Lymph % (Auto) (units (unknown) date) Not Reportable unknown) (unknown) (no (unknown) (unknown) [id number] (units (unk nown) date) unknown) (unknown) (no (unknown) (unknown) MCH 21.4 L (units (unk nown) date) (26-34) PG unknown) (unknown) (no (unknown) (unknown) MCHC 31.4 (units (unkn own) date) (30-36) % unknown) (unknown) (no (unknown) (unknown) MCV 68.4 L (units (unk nown) date) (80-100) fL unknown) (unknown) (no (unknown) (unknown) MDM - URI/Sore (units (unknown) date) Throat unknown) (unknown) (no (unknown) (unknown) MDM Narrative (units ( unknown) date) unknown) (unknown) (no (unknown) (unknown) MDM (units (unkno wn) date) unknown) (unknown) (no (unknown) (unknown) MUSCULOSKELETAL: (units (unknown) date) denies weakness, unknown) joint pain, or bony pain (unknown) (no (unknown) (unknown) Measure peak (units (u nknown) date) expiratory flow unknown) ONCE (unknown) (no (unknown) (unknown) Medical History (units (unknown) date) (Reviewed unknown) 06/09/22 @ 13:35 by Madie Polo MD) (unknown) (no (unknown) (unknown) Medical decision (units (unknown) date) making narrative: unknown) (unknown) (no (unknown) (unknown) Medication (units (unk nown) date) Instructions unknown) Recorded Confirmed (unknown) (no (unknown) (unknown) Mode of arrival: (units (unknown) date) Wheelchair unknown) (unknown) (no (unknown) (unknown) Hyde # (Auto) (units ( unknown) date) Not Reportable unknown) (unknown) (no (unknown) (unknown) Hyde % (Auto) (units ( unknown) date) Not Reportable unknown) (unknown) (no (unknown) (unknown) NECK: [place] (units ( unknown) date) midline. Non unknown) tender (unknown) (no (unknown) (unknown) NEURO: AOx3. (units (u nknown) date) unknown) (unknown) (no (unknown) (unknown) NEUROLOGIC: (units (un known) date) Denies weakness, unknown) headache, numbness, change in speech, confusion, (unknown) (no (unknown) (unknown) NT-proBNP (units (unkn own) date) (BNP-Adult 18+) unknown) Stat (unknown) (no (unknown) (unknown) Narrative (units (unkn own) date) unknown) (unknown) (no (unknown) (unknown) Narrative: (units (unk nown) date) unknown) (unknown) (no (unknown) (unknown) Neut % (Auto) (units ( unknown) date) Not Reportable unknown) (unknown) (no (unknown) (unknown) No Action (units (unkn own) date) unknown) (unknown) (no (unknown) (unknown) On parenteral (units ( unknown) date) nutrition unknown) (unknown) (no (unknown) (unknown) Ordered: (units (unkno wn) date) unknown) (unknown) (no (unknown) (unknown) Orders (units (unkno wn) date) unknown) (unknown) (no (unknown) (unknown) Oxygen Delivery (units (unknown) date) Method Room Air unknown) 09/25/22 11:49 (unknown) (no (unknown) (unknown) Oxygen Delivery (units (unknown) date) Method Room Air unknown) (unknown) (no (unknown) (unknown) Oxygen Delivery (units (unknown) date) Method unknown) (unknown) (no (unknown) (unknown) PSYCHIATRIC: No (units (unknown) date) concerning unknown) psychosocial issues. (unknown) (no (unknown) (unknown) PT 18.4 H (units (unkn own) date) (10.1-12.7) unknown) SECONDS (unknown) (no (unknown) (unknown) Patient (units (unkno wn) date) Comments: unknown) (unknown) (no (unknown) (unknown) Patient History (units (unknown) date) unknown) (unknown) (no (unknown) (unknown) Patient: (units (unkno wn) date) Reg Quintanilla unknown) F MR#: (unknown) (no (unknown) (unknown) Penicillins (units (un known) date) Allergy Severe unknown) Anaphylaxis Verified 09/25/22 11:49 (unknown) (no (unknown) (unknown) Plt Count 301 (units ( unknown) date) (150-400) X103/uL unknown) (unknown) (no (unknown) (unknown) Prescriptions: (units (unknown) date) unknown) (unknown) (no (unknown) (unknown) Prothrombin Time (units (unknown) date) INR Stat unknown) (unknown) (no (unknown) (unknown) Pulse Oximetry (units (unknown) date) 98 09/25/22 11:49 unknown) (unknown) (no (unknown) (unknown) Pulse Oximetry (units (unknown) date) 98 98 unknown) (unknown) (no (unknown) (unknown) Pulse Oximetry (units (unknown) date) 98 99 98 unknown) (unknown) (no (unknown) (unknown) Pulse Oximetry (units (unknown) date) 98 unknown) (unknown) (no (unknown) (unknown) Pulse Rate 65 (units ( unknown) date) unknown) (unknown) (no (unknown) (unknown) Pulse Rate 67 (units ( unknown) date) unknown) (unknown) (no (unknown) (unknown) Pulse Rate 69 (units ( unknown) date) 09/25/22 11:49 unknown) (unknown) (no (unknown) (unknown) Pulse Rate 69 68 (units (unknown) date) 68 unknown) (unknown) (no (unknown) (unknown) Pulse Rate 69 71 (units (unknown) date) unknown) (unknown) (no (unknown) (unknown) RBC 4.05 (units (unkno wn) date) (4.0-5.2) X106/uL unknown) (unknown) (no (unknown) (unknown) RDW 17.4 H (units (unk nown) date) (11.6-14.8) % unknown) (unknown) (no (unknown) (unknown) RESPIRATORY: (units (un known) date) Clear to unknown) auscultation. Breath sounds equal bilaterally. No wheezes, (unknown) (no (unknown) (unknown) RESPIRATORY: (units (u nknown) date) Reports shortness unknown) of breath (unknown) (no (unknown) (unknown) RSV (PCR) (units (unkn own) date) Negative unknown) (Negative) (unknown) (no (unknown) (unknown) RT Consult Eval (units (unknown) date) and Treat NOW unknown) (unknown) (no (unknown) (unknown) Referrals: (units (unk nown) date) unknown) (unknown) (no (unknown) (unknown) Related Data (units (u nknown) date) unknown) (unknown) (no (unknown) (unknown) Respiratory Rate (units (unknown) date) 16 09/25/22 11:49 unknown) (unknown) (no (unknown) (unknown) Respiratory Rate (units (unknown) date) 16 unknown) (unknown) (no (unknown) (unknown) Respiratory Rate (units (unknown) date) 17 unknown) (unknown) (no (unknown) (unknown) Respiratory Rate (units (unknown) date) 18 unknown) (unknown) (no (unknown) (unknown) Respiratory Rate (units (unknown) date) unknown) (unknown) (no (unknown) (unknown) Review of (units (unkn own) date) Systems unknown) (unknown) (no (unknown) (unknown) SARS-CoV-2 (PCR) (units (unknown) date) Negative unknown) (Negative) (unknown) (no (unknown) (unknown) SHAKE LIQUID AND (units (unknown) date) USE 1 SPRAY IN unknown) EACH NOSTRIL TWICE DAILY (unknown) (no (unknown) (unknown) SKIN: Denies (units (u nknown) date) rash, skin unknown) lesions, or other (unknown) (no (unknown) (unknown) SKIN: No rash or (units (unknown) date) erythema of unknown) visible areas (unknown) (no (unknown) (unknown) Seizure disorder (units (unknown) date) unknown) (unknown) (no (unknown) (unknown) Shared Decision (units (unknown) date) Making: [ ] unknown) (unknown) (no (unknown) (unknown) She has some (units (u nknown) date) mild chest pain unknown) with deep inspiration. Patient has a history of (unknown) (no (unknown) (unknown) Signed By: (units (unk nown) date) unknown) (unknown) (no (unknown) (unknown) Smoking Status: (units (unknown) date) Former smoker unknown) (unknown) (no (unknown) (unknown) Social (units (unkno wn) date) Considerations: [ unknown) ] (unknown) (no (unknown) (unknown) Social History (units (unknown) date) (Reviewed unknown) 06/09/22 @ 13:35 by Madie Polo MD) (unknown) (no (unknown) (unknown) Source: patient (units (unknown) date) unknown) (unknown) (no (unknown) (unknown) Stated (units (unkno wn) date) Complaint: asthma unknown) is kicking butt, weak, needs iron (unknown) (no (unknown) (unknown) Stop: 09/25/22 (units (unknown) date) 12:44 unknown) (unknown) (no (unknown) (unknown) Substance Use (units ( unknown) date) Type: does not unknown) use (unknown) (no (unknown) (unknown) TAKE 1 CAPSULE (units (unknown) date) BY MOUTH EVERY unknown) DAY (unknown) (no (unknown) (unknown) TAKE 1 TABLET BY (units (unknown) date) MOUTH AT BEDTIME unknown) (unknown) (no (unknown) (unknown) TAKE 1 TABLET BY (units (unknown) date) MOUTH EVERY DAY unknown) (unknown) (no (unknown) (unknown) TAKE 1 TABLET BY (units (unknown) date) MOUTH FOUR TIMES unknown) DAILY NEEDED (unknown) (no (unknown) (unknown) TAKE 2 TABLETS (units (unknown) date) BY MOUTH AT unknown) BEDTIME (unknown) (no (unknown) (unknown) TAKE 2 TABLETS (units (unknown) date) BY MOUTH THREE unknown) TIMES DAILY NEEDED (unknown) (no (unknown) (unknown) Temperature 97.4 (units (unknown) date) F L 09/25/22 unknown) 11:49 (unknown) (no (unknown) (unknown) Temperature 97.4 (units (unknown) date) F L unknown) (unknown) (no (unknown) (unknown) Temperature (units (un known) date) unknown) (unknown) (no (unknown) (unknown) This is a (units (unkno wn) date) 52-year-old unknown) female presents to the emergency department complaining of (unknown) (no (unknown) (unknown) Time Seen by (units (u nknown) date) Provider: unknown) 09/25/22 12:33 (unknown) (no (unknown) (unknown) Troponin I Stat (units (unknown) date) unknown) (unknown) (no (unknown) (unknown) USE 2 PUFFS BY (units (unknown) date) MOUTH EVERY 4-6 unknown) HOURS. (unknown) (no (unknown) (unknown) Urinalysis and (units (unknown) date) Microscopic Stat unknown) (unknown) (no (unknown) (unknown) Vital Signs - 8 (units (unknown) date) hr unknown) (unknown) (no (unknown) (unknown) Vital Signs (units (un known) date) unknown) (unknown) (no (unknown) (unknown) Vital signs: (units (u nknown) date) unknown) (unknown) (no (unknown) (unknown) WBC 13.9 H (units (unk nown) date) (4.5-11.0) unknown) X103/uL (unknown) (no (unknown) (unknown) XR chest 1V Stat (units (unknown) date) unknown) (unknown) (no (unknown) (unknown) Shaneka García, (units (unknown) date) MD [Primary Care unknown) Provider] (unknown) (no (unknown) (unknown) [Embedded Image (units (unknown) date) Not Available] unknown) (unknown) (no (unknown) (unknown) aerosol inhaler (units (unknown) date) Shortness Of unknown) Breath (unknown) (no (unknown) (unknown) albuterol (units (unkn own) date) sulfate 90 unknown) mcg/actuation 2 puff inhalation Q4HR PRN 01/10/22 04/30/22 (unknown) (no (unknown) (unknown) albuterol (units (unkn own) date) sulfate 90 unknown) mcg/actuation HFA aerosol inhaler (unknown) (no (unknown) (unknown) alcohol intake: (units (unknown) date) never unknown) (unknown) (no (unknown) (unknown) and on TPN. (units (un known) date) Chronically unknown) anemic. (unknown) (no (unknown) (unknown) asthma and has (units (unknown) date) been using her unknown) albuterol inhaler as prescribed without (unknown) (no (unknown) (unknown) baclofen 10 mg (units (unknown) date) tablet 1 tab PO unknown) QID 01/10/22 04/30/22 (unknown) (no (unknown) (unknown) baclofen 10 mg (units (unknown) date) tablet unknown) (unknown) (no (unknown) (unknown) cetirizine 10 mg (units (unknown) date) tablet 1 tab PO unknown) BEDTIME 01/10/22 04/30/22 (unknown) (no (unknown) (unknown) cetirizine 10 mg (units (unknown) date) tablet unknown) (unknown) (no (unknown) (unknown) chlorhexidine (units ( unknown) date) Allergy unknown) Intermediate Rash Verified 09/25/22 11:49 (unknown) (no (unknown) (unknown) constipation, (units ( unknown) date) melena. unknown) (unknown) (no (unknown) (unknown) device (units (unkno wn) date) unknown) (unknown) (no (unknown) (unknown) dextroamphetamin (units (unknown) date) e-amphetamine 20 unknown) 1 tab 1XD 05/02/22 05/02/22 (unknown) (no (unknown) (unknown) dextroamphetamin (units (unknown) date) e-amphetamine 20 unknown) mg tablet (unknown) (no (unknown) (unknown) dizziness. (units (unk nown) date) unknown) (unknown) (no (unknown) (unknown) duloxetine 60 mg (units (unknown) date) capsule,delayed 1 unknown) cap PO DAILY 01/10/22 04/30/22 (unknown) (no (unknown) (unknown) duloxetine 60 mg (units (unknown) date) capsule,delayed unknown) release(DR/EC) (unknown) (no (unknown) (unknown) fevers, (units (unkno wn) date) abdominal pain, unknown) significant chest pain, headaches, slurred speech, (unknown) (no (unknown) (unknown) fluticasone 250 (units (unknown) date) mcg-salmeterol 50 unknown) 1 ea inhalation BID 01/10/22 04/30/22 (unknown) (no (unknown) (unknown) fluticasone (units (un known) date) propion-salmetero unknown) l [Kortneyela Inhub] 250-50 mcg/dose blister with (unknown) (no (unknown) (unknown) fluticasone (units (un known) date) propionate 50 1 unknown) ea intranasal BID 01/10/22 04/30/22 (unknown) (no (unknown) (unknown) fluticasone (units (un known) date) propionate 50 unknown) mcg/actuation spray,suspension (unknown) (no (unknown) (unknown) history of (units (unk nown) date) candidal sepsis. unknown) Also has a history of seizures, opiate addiction, (unknown) (no (unknown) (unknown) household (units (unkn own) date) members: none unknown) (unknown) (no (unknown) (unknown) hydroxyzine HCl (units (unknown) date) 50 mg tablet 2 unknown) tab PO TID 01/10/22 04/30/22 (unknown) (no (unknown) (unknown) hydroxyzine HCl (units (unknown) date) 50 mg tablet unknown) (unknown) (no (unknown) (unknown) icterus. No (units (un known) date) injection or unknown) drainage. (unknown) (no (unknown) (unknown) infusion of (units (un known) date) fluconazole with unknown) plans to get the PICC in the next day.. Has a (unknown) (no (unknown) (unknown) inhalation (units (unk nown) date) (Wixela Inhub) unknown) (unknown) (no (unknown) (unknown) lamotrigine 200 (units (unknown) date) mg tablet 2 tab unknown) PO BEDTIME 01/10/22 04/30/22 (unknown) (no (unknown) (unknown) lamotrigine 200 (units (unknown) date) mg tablet unknown) (unknown) (no (unknown) (unknown) lidocaine (units (unkn own) date) AdvReac unknown) Intermediate Verified 09/25/22 11:49 (unknown) (no (unknown) (unknown) mcg/actuation (units ( unknown) date) nasal unknown) (unknown) (no (unknown) (unknown) mcg/dose blistr (units (unknown) date) powdr for unknown) (unknown) (no (unknown) (unknown) meloxicam 15 mg (units (unknown) date) tablet 1 tab unknown) DAILY 01/10/22 04/30/22 (unknown) (no (unknown) (unknown) meloxicam 15 mg (units (unknown) date) tablet unknown) (unknown) (no (unknown) (unknown) mg tablet (units (unkn own) date) unknown) (unknown) (no (unknown) (unknown) not recall any (units (unknown) date) specific event unknown) that caused the worsening shortness of breath. (unknown) (no (unknown) (unknown) pain with (units (unkn own) date) palpation of the unknown) chest (unknown) (no (unknown) (unknown) rales, or (units (unkn own) date) rhonchi. unknown) (unknown) (no (unknown) (unknown) release (units (unkno wn) date) unknown) (unknown) (no (unknown) (unknown) seizures, (units (unkn own) date) incoordination. unknown) (unknown) (no (unknown) (unknown) significant (units (un known) date) relief causing unknown) her come in. She denies any nausea, vomiting, (unknown) (no (unknown) (unknown) spray,suspension (units (unknown) date) unknown) (unknown) (no (unknown) (unknown) tonsillar (units (unkn own) date) hypertrophy or unknown) exudate. Airway patent. (unknown) (no (unknown) (unknown) tox [Urine Drug (units (unknown) date) Screen, Rapid] unknown) Stat (unknown) (no (unknown) (unknown) vancomycin (units (unk nown) date) AdvReac Verified unknown) 09/25/22 11:49 (unknown) (no (unknown) (unknown) weakness, or any (units (unknown) date) other concerning unknown) signs or symptoms. (unknown) (no (unknown) (unknown) worsening acute (units (unknown) date) on chronic unknown) shortness of breath onset 2 days ago. Patient does Result panel 222 (unknown) (no date) (unknown) (unknown) > 60 ml/min (unkn own) (unknown) (no date) (unknown) (unknown) > 60 ml/min (unkn own) (unknown) (no date) (unknown) (unknown) 0.5 mg/dl (unkn own) (unknown) (no date) (unknown) (unknown) 0.8 (units unknown) (unknown) (unknown) (no date) (unknown) (unknown) 0.89 mg/dl (unkn own) (unknown) (no date) (unknown) (unknown) 117 mg/dl (unkn own) (unknown) (no date) (unknown) (unknown) 117 mg/dl (unkn own) (unknown) (no date) (unknown) (unknown) 134 mmol/l (unkn own) (unknown) (no date) (unknown) (unknown) 134 mmol/l (unkn own) (unknown) (no date) (unknown) (unknown) 203 u/l (unkn own) (unknown) (no date) (unknown) (unknown) 22 mmol/l (unkn own) (unknown) (no date) (unknown) (unknown) 25 iu/l (unkn own) (unknown) (no date) (unknown) (unknown) 3.0 g/dl (unkn own) (unknown) (no date) (unknown) (unknown) 3.8 mmol/l (unkn own) (unknown) (no date) (unknown) (unknown) 4.0 g/dl (unkn own) (unknown) (no date) (unknown) (unknown) 44 iu/l (unkn own) (unknown) (no date) (unknown) (unknown) 44 mg/dl (unkn own) (unknown) (no date) (unknown) (unknown) 49.4 (units unknown) (unknown) (unknown) (no date) (unknown) (unknown) 7.0 g/dl (unkn own) (unknown) (no date) (unknown) (unknown) 8.4 mg/dl (unkn own) (unknown) (no date) (unknown) (unknown) 98 mmol/l (unkn own) Result panel 223 (unknown) (no date) (unknown) (unknown) 1 (units (unkn own) unknown) (unknown) (no date) (unknown) (unknown) 1.0 % (unkn own) (unknown) (no date) (unknown) (unknown) 100 (units (unkn own) unknown) (unknown) (no date) (unknown) (unknown) 16972 /ul (unkn own) (unknown) (no date) (unknown) (unknown) 13.9 x10 3/ul (unkn own) (unknown) (no date) (unknown) (unknown) 17.4 % (unkn own) (unknown) (no date) (unknown) (unknown) 2 (units (unkn own) unknown) (unknown) (no date) (unknown) (unknown) 21.4 pg (unkn own) (unknown) (no date) (unknown) (unknown) 27.7 % (unkn own) (unknown) (no date) (unknown) (unknown) 28.0 % (unkn own) (unknown) (no date) (unknown) (unknown) 3.0 % (unkn own) (unknown) (no date) (unknown) (unknown) 301 x10 3/ul (unkn own) (unknown) (no date) (unknown) (unknown) 31.4 % (unkn own) (unknown) (no date) (unknown) (unknown) 4.05 x10 6/ul (unkn own) (unknown) (no date) (unknown) (unknown) 51.0 % (unkn own) (unknown) (no date) (unknown) (unknown) 68.4 fl (unkn own) (unknown) (no date) (unknown) (unknown) 8.0 % (unkn own) (unknown) (no date) (unknown) (unknown) 8.7 g/dl (unkn own) (unknown) (no date) (unknown) (unknown) 9.0 % (unkn own) (unknown) (no date) (unknown) (unknown) See Below (units (unk nown) unknown) Result panel 224 (unknown) (no date) (unknown) (unknown) 3576 ng/ml (unkn own) (unknown) (no date) (unknown) (unknown) 3576 ng/ml (unkn own) Result panel 225 (unknown) (no (unknown) (unknown) (no value) (units (unk nown) date) unknown) (unknown) (no (unknown) (unknown) > 60 ml/min (unkno wn) date) (unknown) (no (unknown) (unknown) > 60 ml/min (unkno wn) date) (unknown) (no (unknown) (unknown) < 0.012 ng/ml (unkno wn) date) (unknown) (no (unknown) (unknown) < 0.012 ng/ml (unkno wn) date) (unknown) (no (unknown) (unknown) * Clinical (units (unk nown) date) Decision unknown) Rules/Scores evaluated: [ ] (unknown) (no (unknown) (unknown) * Independent (units ( unknown) date) discussions with: unknown) [ ] (unknown) (no (unknown) (unknown) * My imgaing (units (u nknown) date) interpretation: [ unknown) ] (unknown) (no (unknown) (unknown) * My lab (units (unkno wn) date) interpretation: [ unknown) ] (unknown) (no (unknown) (unknown) * Prior records (units (unknown) date) reviewed: Patient unknown) was last seen here 4 months ago for an IV (unknown) (no (unknown) (unknown) * differential (units (unknown) date) diagnosis unknown) includes but not limited to [ ] (unknown) (no (unknown) (unknown) 0.5 mg/dl (unkno wn) date) (unknown) (no (unknown) (unknown) 0.8 (units (unkno wn) date) unknown) (unknown) (no (unknown) (unknown) 0.89 mg/dl (unkno wn) date) (unknown) (no (unknown) (unknown) 09/25/22 (units (unkno wn) date) 09/25/22 09/25/22 unknown) Range/Units (unknown) (no (unknown) (unknown) 09/25/22 11:54 (units (unknown) date) unknown) (unknown) (no (unknown) (unknown) 09/25/22 11:55 (units (unknown) date) unknown) (unknown) (no (unknown) (unknown) 09/25/22 12:12 (units (unknown) date) unknown) (unknown) (no (unknown) (unknown) 09/25/22 12:14 (units (unknown) date) unknown) (unknown) (no (unknown) (unknown) 09/25/22 12:28 (units (unknown) date) unknown) (unknown) (no (unknown) (unknown) 09/25/22 12:36 (units (unknown) date) unknown) (unknown) (no (unknown) (unknown) 09/25/22 12:44 (units (unknown) date) unknown) (unknown) (no (unknown) (unknown) 09/25/22 (units (unkno wn) date) unknown) (unknown) (no (unknown) (unknown) 1 cap PO DAILY (units (unknown) date) unknown) (unknown) (no (unknown) (unknown) 1 ea INHALATION (units (unknown) date) BID unknown) (unknown) (no (unknown) (unknown) 1 ea INTRANASAL (units (unknown) date) BID unknown) (unknown) (no (unknown) (unknown) 1 tab 1XD (units (unkn own) date) unknown) (unknown) (no (unknown) (unknown) 1 tab DAILY (units (un known) date) unknown) (unknown) (no (unknown) (unknown) 1 tab PO BEDTIME (units (unknown) date) unknown) (unknown) (no (unknown) (unknown) 1 tab PO QID (units (u nknown) date) unknown) (unknown) (no (unknown) (unknown) 117 mg/dl (unkno wn) date) (unknown) (no (unknown) (unknown) 117 mg/dl (unkno wn) date) (unknown) (no (unknown) (unknown) 11:49 09/25/22 (units (unknown) date) unknown) (unknown) (no (unknown) (unknown) 11:55 12:28 (units (un known) date) 12:28 unknown) (unknown) (no (unknown) (unknown) 12 point review (units (unknown) date) of systems is unknown) negative except for those stated above (unknown) (no (unknown) (unknown) 12:12 09/25/22 (units (unknown) date) unknown) (unknown) (no (unknown) (unknown) 12:13 09/25/22 (units (unknown) date) unknown) (unknown) (no (unknown) (unknown) 12:13 (units (unkno wn) date) unknown) (unknown) (no (unknown) (unknown) 12:15 09/25/22 (units (unknown) date) unknown) (unknown) (no (unknown) (unknown) 12:27 09/25/22 (units (unknown) date) unknown) (unknown) (no (unknown) (unknown) 12:27 (units (unkno wn) date) unknown) (unknown) (no (unknown) (unknown) 12:28 12:28 (units (un known) date) 12:44 unknown) (unknown) (no (unknown) (unknown) 12:30 09/25/22 (units (unknown) date) unknown) (unknown) (no (unknown) (unknown) 12:31 09/25/22 (units (unknown) date) unknown) (unknown) (no (unknown) (unknown) 12:31 (units (unkno wn) date) unknown) (unknown) (no (unknown) (unknown) 12:45 09/25/22 (units (unknown) date) unknown) (unknown) (no (unknown) (unknown) 12:45 (units (unkno wn) date) unknown) (unknown) (no (unknown) (unknown) 134 mmol/l (unkno wn) date) (unknown) (no (unknown) (unknown) 134 mmol/l (unkno wn) date) (unknown) (no (unknown) (unknown) 2 puff (units (unkno wn) date) INHALATION Q4HR unknown) PRN (Reason: Shortness Of Breath) (unknown) (no (unknown) (unknown) 2 tab PO BEDTIME (units (unknown) date) unknown) (unknown) (no (unknown) (unknown) 2 tab PO TID (units (u nknown) date) unknown) (unknown) (no (unknown) (unknown) 203 u/l (unkno wn) date) (unknown) (no (unknown) (unknown) 22 mmol/l (unkno wn) date) (unknown) (no (unknown) (unknown) 25 iu/l (unkno wn) date) (unknown) (no (unknown) (unknown) 3.0 g/dl (unkno wn) date) (unknown) (no (unknown) (unknown) 3.8 mmol/l (unkno wn) date) (unknown) (no (unknown) (unknown) 4.0 g/dl (unkno wn) date) (unknown) (no (unknown) (unknown) 44 iu/l (unkno wn) date) (unknown) (no (unknown) (unknown) 44 mg/dl (unkno wn) date) (unknown) (no (unknown) (unknown) 49.4 (units (unkno wn) date) unknown) (unknown) (no (unknown) (unknown) 7.0 g/dl (unkno wn) date) (unknown) (no (unknown) (unknown) 7310 pg/ml (unkno wn) date) (unknown) (no (unknown) (unknown) 7310 pg/ml (unkno wn) date) (unknown) (no (unknown) (unknown) 8.4 mg/dl (unkno wn) date) (unknown) (no (unknown) (unknown) 98 mmol/l (unkno wn) date) (unknown) (no (unknown) (unknown) ALT (<35) IU/L (units (unknown) date) unknown) (unknown) (no (unknown) (unknown) ALT 25 (<35) (units (u nknown) date) IU/L unknown) (unknown) (no (unknown) (unknown) AST (14-36) IU/L (units (unknown) date) unknown) (unknown) (no (unknown) (unknown) AST 44 H (14-36) (units (unknown) date) IU/L unknown) (unknown) (no (unknown) (unknown) Addiction, opium (units (unknown) date) unknown) (unknown) (no (unknown) (unknown) Age/Sex: 52 / F (units (unknown) date) unknown) (unknown) (no (unknown) (unknown) Albumin (units (unkno wn) date) (3.5-5.0) g/dL unknown) (unknown) (no (unknown) (unknown) Albumin 3.0 L (units ( unknown) date) (3.5-5.0) g/dL unknown) (unknown) (no (unknown) (unknown) Albumin/Globulin (units (unknown) date) Ratio (1.0-2.8) unknown) (unknown) (no (unknown) (unknown) Albumin/Globulin (units (unknown) date) Ratio 0.8 L unknown) (1.0-2.8) (unknown) (no (unknown) (unknown) Albuterol/Ipratr (units (unknown) date) opium unknown) (Albuterol/Ipratr opium 3 Ml Ampul) 6 ml INH NOW ONE (unknown) (no (unknown) (unknown) Alkaline (units (unkno wn) date) Phosphatase unknown) (38-126) U/L (unknown) (no (unknown) (unknown) Alkaline (units (unkno wn) date) Phosphatase 203 H unknown) (38-126) U/L (unknown) (no (unknown) (unknown) Allergies (units (unkn own) date) unknown) (unknown) (no (unknown) (unknown) Allergy/AdvReac (units (unknown) date) Type Severity unknown) Reaction Status Date / Time (unknown) (no (unknown) (unknown) Anisocytosis 1+ (units (unknown) date) H unknown) (unknown) (no (unknown) (unknown) Anisocytosis (units (u nknown) date) unknown) (unknown) (no (unknown) (unknown) BACK: Nontender (units (unknown) date) without deformity unknown) or crepitance. No flank tenderness. (unknown) (no (unknown) (unknown) BUN (7-17) mg/dL (units (unknown) date) unknown) (unknown) (no (unknown) (unknown) BUN 44 H (7-17) (units (unknown) date) mg/dL unknown) (unknown) (no (unknown) (unknown) BUN/Creatinine (units (unknown) date) Ratio (6-22) unknown) (unknown) (no (unknown) (unknown) BUN/Creatinine (units (unknown) date) Ratio 49.4 H unknown) (6-22) (unknown) (no (unknown) (unknown) Band Neutrophils (units (unknown) date) % (3-7) % unknown) (unknown) (no (unknown) (unknown) Band Neutrophils (units (unknown) date) % 28.0 H (3-7) % unknown) (unknown) (no (unknown) (unknown) Baso # (Auto) (units ( unknown) date) Not Reportable unknown) (unknown) (no (unknown) (unknown) Baso # (Auto) (units ( unknown) date) unknown) (unknown) (no (unknown) (unknown) Baso % (Auto) (units ( unknown) date) Not Reportable unknown) (unknown) (no (unknown) (unknown) Baso % (Auto) (units ( unknown) date) unknown) (unknown) (no (unknown) (unknown) Basophils % (units (un known) date) (Manual) (0-1) % unknown) (unknown) (no (unknown) (unknown) Basophils % (units (un known) date) (Manual) 1.0 unknown) (0-1) % (unknown) (no (unknown) (unknown) Blood Pressure (units (unknown) date) 87/52 L unknown) (unknown) (no (unknown) (unknown) Blood Pressure (units (unknown) date) 94/54 L 99/52 L unknown) (unknown) (no (unknown) (unknown) Blood Pressure (units (unknown) date) 96/60 09/25/23 unknown) 11:49 (unknown) (no (unknown) (unknown) Blood Pressure (units (unknown) date) 85/52 L unknown) (unknown) (no (unknown) (unknown) Blood Pressure (units (unknown) date) unknown) (unknown) (no (unknown) (unknown) CARDIOVASCULAR: (units (unknown) date) Denies chest unknown) pain, palpitations, orthopnea, edema, (unknown) (no (unknown) (unknown) CARDIOVASCULAR: (units (unknown) date) Regular rate and unknown) rhythm without murmurs, gallops, or rubs. Mild (unknown) (no (unknown) (unknown) Cachexia (units (unkno wn) date) unknown) (unknown) (no (unknown) (unknown) Calcium (units (o wn) date) (8.4-10.2) mg/dL unknown) (unknown) (no (unknown) (unknown) Calcium 8.4 (units (un known) date) (8.4-10.2) mg/dL unknown) (unknown) (no (unknown) (unknown) Carbon Dioxide (units (unknown) date) (22-32) mmol/L unknown) (unknown) (no (unknown) (unknown) Carbon Dioxide (units (unknown) date) 22 (22-32) mmol/L unknown) (unknown) (no (unknown) (unknown) Chief Complaint: (units (unknown) date) Upper Respiratory unknown) Symptoms (unknown) (no (unknown) (unknown) Chloride (units (o wn) date) (98-107) mmol/L unknown) (unknown) (no (unknown) (unknown) Chloride 98 (units (un known) date) (98-107) mmol/L unknown) (unknown) (no (unknown) (unknown) Complete Blood (units (unknown) date) Count AUTO DIFF unknown) Stat (unknown) (no (unknown) (unknown) Comprehensive (units ( unknown) date) Metabolic Panel unknown) Stat (unknown) (no (unknown) (unknown) Course (units (unkno wn) date) unknown) (unknown) (no (unknown) (unknown) Covid-19 + FLU (units (unknown) date) A/B + RSV - PCR unknown) Stat (unknown) (no (unknown) (unknown) Creatinine (units (unk nown) date) (0.52-1.04) mg/dL unknown) (unknown) (no (unknown) (unknown) Creatinine 0.89 (units (unknown) date) (0.52-1.04) mg/dL unknown) (unknown) (no (unknown) (unknown) D Dimer Stat (units (u nknown) date) unknown) (unknown) (no (unknown) (unknown) D-Dimer (<500) (units (unknown) date) ng/ml unknown) (unknown) (no (unknown) (unknown) D-Dimer 3576 H (units (unknown) date) (<500) ng/ml unknown) (unknown) (no (unknown) (unknown) : 1970 (units (unknown) date) Acct:[id number] unknown) (unknown) (no (unknown) (unknown) Date of Service: (units (unknown) date) 09/25/22 unknown) (unknown) (no (unknown) (unknown) Departure (units (unkn own) date) unknown) (unknown) (no (unknown) (unknown) Discharge Plan (units (unknown) date) unknown) (unknown) (no (unknown) (unknown) Discontinued (units (u nknown) date) Medications unknown) (unknown) (no (unknown) (unknown) Disposition: [ ] (units (unknown) date) unknown) (unknown) (no (unknown) (unknown) ED Course: [ ] (units (unknown) date) unknown) (unknown) (no (unknown) (unknown) ED Orders (units (unkn own) date) unknown) (unknown) (no (unknown) (unknown) EKG-12 Lead Stat (units (unknown) date) unknown) (unknown) (no (unknown) (unknown) ENT: Nose (units (unkn own) date) without bleeding, unknown) purulent drainage. Throat without erythema, (unknown) (no (unknown) (unknown) ER Physician: (units ( unknown) date) Bethel Flynn P.A-C unknown) (unknown) (no (unknown) (unknown) EXTREMITIES: No (units (unknown) date) edema or joint unknown) tenderness. (unknown) (no (unknown) (unknown) EYES: Pupils (units (u nknown) date) equal round and unknown) reactive. Extraocular motions intact. No scleral (unknown) (no (unknown) (unknown) Emergency Report (units (unknown) date) unknown) (unknown) (no (unknown) (unknown) Eos % (Auto) Not (units (unknown) date) Reportable unknown) (unknown) (no (unknown) (unknown) Eos % (Auto) (units (u nknown) date) unknown) (unknown) (no (unknown) (unknown) Estimated GFR > (units (unknown) date) 60 (>60) mL/min unknown) (unknown) (no (unknown) (unknown) Estimated GFR (units ( unknown) date) (>60) mL/min unknown) (unknown) (no (unknown) (unknown) Exam Narrative: (units (unknown) date) unknown) (unknown) (no (unknown) (unknown) Exam (units (unkno wn) date) unknown) (unknown) (no (unknown) (unknown) GASTROINTESTINAL (units (unknown) date) : Abdomen soft, unknown) non-tender, nondistended. (unknown) (no (unknown) (unknown) GASTROINTESTINAL (units (unknown) date) : Denies nausea, unknown) vomiting, abdominal pain, diarrhea, (unknown) (no (unknown) (unknown) GENERAL: Denies (units (unknown) date) chills, fatigue, unknown) malaise, fever, sweats. (unknown) (no (unknown) (unknown) GENERAL: (units (o wn) date) Well-developed unknown) patient, in mild distress. (unknown) (no (unknown) (unknown) : Denies (units (unk nown) date) dysuria, unknown) frequency, incontinence, hematuria, urinary retention. (unknown) (no (unknown) (unknown) Gastroparesis (units ( unknown) date) unknown) (unknown) (no (unknown) (unknown) General (units (unkno wn) date) unknown) (unknown) (no (unknown) (unknown) Globulin (units (unkno wn) date) (1.7-4.1) g/dL unknown) (unknown) (no (unknown) (unknown) Globulin 4.0 (units (u nknown) date) (1.7-4.1) g/dL unknown) (unknown) (no (unknown) (unknown) Glucose (70-100) (units (unknown) date) mg/dL unknown) (unknown) (no (unknown) (unknown) Glucose 117 H (units ( unknown) date) (70-100) mg/dL unknown) (unknown) (no (unknown) (unknown) HEAD: (units (unkno wn) date) Atraumatic. unknown) Normocephalic. (unknown) (no (unknown) (unknown) HEENT: Denies (units ( unknown) date) sinus pain, ear unknown) pain, sore throat, difficulty swallowing, (unknown) (no (unknown) (unknown) HPI - URI/Sore (units (unknown) date) Throat unknown) (unknown) (no (unknown) (unknown) HPI Narrative: (units (unknown) date) unknown) (unknown) (no (unknown) (unknown) Hct (36-46) % (units ( unknown) date) unknown) (unknown) (no (unknown) (unknown) Hct 27.7 L (units (unk nown) date) (36-46) % unknown) (unknown) (no (unknown) (unknown) Hgb (12.0-16.0) (units (unknown) date) g/dL unknown) (unknown) (no (unknown) (unknown) Hgb 8.7 L (units (unkn own) date) (12.0-16.0) g/dL unknown) (unknown) (no (unknown) (unknown) History of (units (unk nown) date) Present Illness unknown) (unknown) (no (unknown) (unknown) History of (units (unk nown) date) gastrectomy unknown) (unknown) (no (unknown) (unknown) Home Medications (units (unknown) date) unknown) (unknown) (no (unknown) (unknown) INHALE 1 PUFF BY (units (unknown) date) MOUTH TWICE unknown) DAILY. RINSE MOUTH AFTER USE (unknown) (no (unknown) (unknown) INR (0.9-1.3) (units ( unknown) date) unknown) (unknown) (no (unknown) (unknown) INR 1.6 H (units (unkn own) date) (0.9-1.3) unknown) (unknown) (no (unknown) (unknown) Influenza A (units (un known) date) (RT-PCR) unknown) (NEGATIVE) (unknown) (no (unknown) (unknown) Influenza A (units (un known) date) (RT-PCR) Flu a unknown) negative (NEGATIVE) (unknown) (no (unknown) (unknown) Influenza B (units (un known) date) (RT-PCR) unknown) (NEGATIVE) (unknown) (no (unknown) (unknown) Influenza B (units (un known) date) (RT-PCR) Flu b unknown) negative (NEGATIVE) (unknown) (no (unknown) (unknown) Initial Vital (units ( unknown) date) Signs unknown) (unknown) (no (unknown) (unknown) Initial Vital (units ( unknown) date) Signs: unknown) (unknown) (no (unknown) (unknown) [facility] (units (unknown) date) [address] [place] [address] unknown) [place] [address] (unknown) (no (unknown) (unknown) Lab Data (units (unkno wn) date) unknown) (unknown) (no (unknown) (unknown) Lab Results (units (un known) date) unknown) (unknown) (no (unknown) (unknown) Labs: (units (unkno wn) date) unknown) (unknown) (no (unknown) (unknown) Lactate (units (unkno wn) date) (0.7-2.1) mmol/L unknown) (unknown) (no (unknown) (unknown) Lactate (Lactic (units (unknown) date) Acid) Stat unknown) (unknown) (no (unknown) (unknown) Lactate 2.6 H (units ( unknown) date) (0.7-2.1) mmol/L unknown) (unknown) (no (unknown) (unknown) Last Admin: (units (un known) date) 09/25/22 12:49 unknown) Dose: 6 ml (unknown) (no (unknown) (unknown) Lymph # (Auto) (units (unknown) date) Not Reportable unknown) (unknown) (no (unknown) (unknown) Lymph # (Auto) (units (unknown) date) unknown) (unknown) (no (unknown) (unknown) Lymph % (Auto) (units (unknown) date) Not Reportable unknown) (unknown) (no (unknown) (unknown) Lymph % (Auto) (units (unknown) date) unknown) (unknown) (no (unknown) (unknown) Lymphocytes % (units ( unknown) date) (Manual) (25-45) unknown) % (unknown) (no (unknown) (unknown) Lymphocytes % (units ( unknown) date) (Manual) 9.0 L unknown) (25-45) % (unknown) (no (unknown) (unknown) [id number] (units (unk nown) date) unknown) (unknown) (no (unknown) (unknown) MCH (26-34) PG (units (unknown) date) unknown) (unknown) (no (unknown) (unknown) MCH 21.4 L (units (unk nown) date) (26-34) PG unknown) (unknown) (no (unknown) (unknown) MCHC (30-36) % (units (unknown) date) unknown) (unknown) (no (unknown) (unknown) MCHC 31.4 (units (unkn own) date) (30-36) % unknown) (unknown) (no (unknown) (unknown) MCV (80-100) fL (units (unknown) date) unknown) (unknown) (no (unknown) (unknown) MCV 68.4 L (units (unk nown) date) (80-100) fL unknown) (unknown) (no (unknown) (unknown) MDM - URI/Sore (units (unknown) date) Throat unknown) (unknown) (no (unknown) (unknown) MDM Narrative (units ( unknown) date) unknown) (unknown) (no (unknown) (unknown) MDM (units (unkno wn) date) unknown) (unknown) (no (unknown) (unknown) MUSCULOSKELETAL: (units (unknown) date) denies weakness, unknown) joint pain, or bony pain (unknown) (no (unknown) (unknown) Measure peak (units (u nknown) date) expiratory flow unknown) ONCE (unknown) (no (unknown) (unknown) Medical History (units (unknown) date) (Reviewed unknown) 06/09/22 @ 13:35 by Madie Polo MD) (unknown) (no (unknown) (unknown) Medical decision (units (unknown) date) making narrative: unknown) (unknown) (no (unknown) (unknown) Medication (units (unk nown) date) Instructions unknown) Recorded Confirmed (unknown) (no (unknown) (unknown) Metamyelocytes % (units (unknown) date) (-0) % unknown) (unknown) (no (unknown) (unknown) Metamyelocytes % (units (unknown) date) 3.0 H (-0) % unknown) (unknown) (no (unknown) (unknown) Microcytosis 2+ (units (unknown) date) H unknown) (unknown) (no (unknown) (unknown) Microcytosis (units (u nknown) date) unknown) (unknown) (no (unknown) (unknown) Mode of arrival: (units (unknown) date) Wheelchair unknown) (unknown) (no (unknown) (unknown) Hyde # (Auto) (units ( unknown) date) Not Reportable unknown) (unknown) (no (unknown) (unknown) Hyde # (Auto) (units ( unknown) date) unknown) (unknown) (no (unknown) (unknown) Hyde % (Auto) (units ( unknown) date) Not Reportable unknown) (unknown) (no (unknown) (unknown) Hyde % (Auto) (units ( unknown) date) unknown) (unknown) (no (unknown) (unknown) Monocytes % (units (un known) date) (Manual) (2-11) % unknown) (unknown) (no (unknown) (unknown) Monocytes % (units (un known) date) (Manual) 8.0 unknown) (2-11) % (unknown) (no (unknown) (unknown) NECK: Trachea (units ( unknown) date) midline. Non unknown) tender (unknown) (no (unknown) (unknown) NEURO: AOx3. (units (u nknown) date) unknown) (unknown) (no (unknown) (unknown) NEUROLOGIC: (units (un known) date) Denies weakness, unknown) headache, numbness, change in speech, confusion, (unknown) (no (unknown) (unknown) NT-proBNP (units (unkn own) date) (BNP-Adult 18+) unknown) Stat (unknown) (no (unknown) (unknown) Narrative (units (unkn own) date) unknown) (unknown) (no (unknown) (unknown) Narrative: (units (unk nown) date) unknown) (unknown) (no (unknown) (unknown) Neut % (Auto) (units ( unknown) date) Not Reportable unknown) (unknown) (no (unknown) (unknown) Neut % (Auto) (units ( unknown) date) unknown) (unknown) (no (unknown) (unknown) Neutrophils # (units ( unknown) date) (Manual) unknown) ([id number]) /uL (unknown) (no (unknown) (unknown) Neutrophils # (units ( unknown) date) (Manual) 95732 H unknown) ([phone]) /uL (unknown) (no (unknown) (unknown) No Action (units (unkn own) date) unknown) (unknown) (no (unknown) (unknown) On parenteral (units ( unknown) date) nutrition unknown) (unknown) (no (unknown) (unknown) Ordered: (units (unkno wn) date) unknown) (unknown) (no (unknown) (unknown) Orders (units (unkno wn) date) unknown) (unknown) (no (unknown) (unknown) Oxygen Delivery (units (unknown) date) Method Room Air unknown) 09/25/22 11:49 (unknown) (no (unknown) (unknown) Oxygen Delivery (units (unknown) date) Method Room Air unknown) Room Air (unknown) (no (unknown) (unknown) Oxygen Delivery (units (unknown) date) Method Room Air unknown) (unknown) (no (unknown) (unknown) Oxygen Delivery (units (unknown) date) Method unknown) (unknown) (no (unknown) (unknown) PSYCHIATRIC: No (units (unknown) date) concerning unknown) psychosocial issues. (unknown) (no (unknown) (unknown) PT (10.1-12.7) (units (unknown) date) SECONDS unknown) (unknown) (no (unknown) (unknown) PT 18.4 H (units (unkn own) date) (10.1-12.7) unknown) SECONDS (unknown) (no (unknown) (unknown) Patient (units (unkno wn) date) Comments: unknown) (unknown) (no (unknown) (unknown) Patient History (units (unknown) date) unknown) (unknown) (no (unknown) (unknown) Patient: (units (unkno wn) date) Quintanilla,Gnosticism unknown) F MR#: (unknown) (no (unknown) (unknown) Penicillins (units (un known) date) Allergy Severe unknown) Anaphylaxis Verified 09/25/22 11:49 (unknown) (no (unknown) (unknown) Plt Count (units (unkn own) date) (150-400) X103/uL unknown) (unknown) (no (unknown) (unknown) Plt Count 301 (units ( unknown) date) (150-400) X103/uL unknown) (unknown) (no (unknown) (unknown) Potassium (units (unkn own) date) (3.4-5.1) mmol/L unknown) (unknown) (no (unknown) (unknown) Potassium 3.8 (units ( unknown) date) (3.4-5.1) mmol/L unknown) (unknown) (no (unknown) (unknown) Prescriptions: (units (unknown) date) unknown) (unknown) (no (unknown) (unknown) Prothrombin Time (units (unknown) date) INR Stat unknown) (unknown) (no (unknown) (unknown) Pulse Oximetry (units (unknown) date) 98 09/25/22 11:49 unknown) (unknown) (no (unknown) (unknown) Pulse Oximetry (units (unknown) date) 98 97 unknown) (unknown) (no (unknown) (unknown) Pulse Oximetry (units (unknown) date) 98 98 unknown) (unknown) (no (unknown) (unknown) Pulse Oximetry (units (unknown) date) 98 99 98 unknown) (unknown) (no (unknown) (unknown) Pulse Oximetry (units (unknown) date) 98 unknown) (unknown) (no (unknown) (unknown) Pulse Rate 65 66 (units (unknown) date) unknown) (unknown) (no (unknown) (unknown) Pulse Rate 67 (units ( unknown) date) unknown) (unknown) (no (unknown) (unknown) Pulse Rate 69 (units ( unknown) date) 09/25/22 11:49 unknown) (unknown) (no (unknown) (unknown) Pulse Rate 69 68 (units (unknown) date) 68 unknown) (unknown) (no (unknown) (unknown) Pulse Rate 69 71 (units (unknown) date) unknown) (unknown) (no (unknown) (unknown) RBC (4.0-5.2) (units ( unknown) date) X106/uL unknown) (unknown) (no (unknown) (unknown) RBC 4.05 (units (unkno wn) date) (4.0-5.2) X106/uL unknown) (unknown) (no (unknown) (unknown) RBC Morphology (units (unknown) date) See below unknown) (unknown) (no (unknown) (unknown) RBC Morphology (units (unknown) date) unknown) (unknown) (no (unknown) (unknown) RDW (11.6-14.8) (units (unknown) date) % unknown) (unknown) (no (unknown) (unknown) RDW 17.4 H (units (unk nown) date) (11.6-14.8) % unknown) (unknown) (no (unknown) (unknown) RESPIRATORY: (units (un known) date) Clear to unknown) auscultation. Breath sounds equal bilaterally. No wheezes, (unknown) (no (unknown) (unknown) RESPIRATORY: (units (u nknown) date) Reports shortness unknown) of breath (unknown) (no (unknown) (unknown) RSV (PCR) (units (unkn own) date) (Negative) unknown) (unknown) (no (unknown) (unknown) RSV (PCR) (units (unkn own) date) Negative unknown) (Negative) (unknown) (no (unknown) (unknown) RT Consult Eval (units (unknown) date) and Treat NOW unknown) (unknown) (no (unknown) (unknown) Referrals: (units (unk nown) date) unknown) (unknown) (no (unknown) (unknown) Related Data (units (u nknown) date) unknown) (unknown) (no (unknown) (unknown) Respiratory Rate (units (unknown) date) 16 09/25/22 11:49 unknown) (unknown) (no (unknown) (unknown) Respiratory Rate (units (unknown) date) 16 unknown) (unknown) (no (unknown) (unknown) Respiratory Rate (units (unknown) date) 17 23 unknown) (unknown) (no (unknown) (unknown) Respiratory Rate (units (unknown) date) 18 unknown) (unknown) (no (unknown) (unknown) Respiratory Rate (units (unknown) date) unknown) (unknown) (no (unknown) (unknown) Review of (units (unkn own) date) Systems unknown) (unknown) (no (unknown) (unknown) SARS-CoV-2 (PCR) (units (unknown) date) (Negative) unknown) (unknown) (no (unknown) (unknown) SARS-CoV-2 (PCR) (units (unknown) date) Negative unknown) (Negative) (unknown) (no (unknown) (unknown) SHAKE LIQUID AND (units (unknown) date) USE 1 SPRAY IN unknown) EACH NOSTRIL TWICE DAILY (unknown) (no (unknown) (unknown) SKIN: Denies (units (u nknown) date) rash, skin unknown) lesions, or other (unknown) (no (unknown) (unknown) SKIN: No rash or (units (unknown) date) erythema of unknown) visible areas (unknown) (no (unknown) (unknown) Seg Neutrophils (units (unknown) date) % (38-70) % unknown) (unknown) (no (unknown) (unknown) Seg Neutrophils (units (unknown) date) % 51.0 (38-70) % unknown) (unknown) (no (unknown) (unknown) Seizure disorder (units (unknown) date) unknown) (unknown) (no (unknown) (unknown) Shared Decision (units (unknown) date) Making: [ ] unknown) (unknown) (no (unknown) (unknown) She has some (units (u nknown) date) mild chest pain unknown) with deep inspiration. Patient has a history of (unknown) (no (unknown) (unknown) Signed By: (units (unk nown) date) unknown) (unknown) (no (unknown) (unknown) Smoking Status: (units (unknown) date) Former smoker unknown) (unknown) (no (unknown) (unknown) Social (units (unkno wn) date) Considerations: [ unknown) ] (unknown) (no (unknown) (unknown) Social History (units (unknown) date) (Reviewed unknown) 06/09/22 @ 13:35 by Madie Polo MD) (unknown) (no (unknown) (unknown) Sodium (137-145) (units (unknown) date) mmol/L unknown) (unknown) (no (unknown) (unknown) Sodium 134 L (units (u nknown) date) (137-145) mmol/L unknown) (unknown) (no (unknown) (unknown) Sodium Chloride (units (unknown) date) (Normal Saline unknown) 0.9%) 1,000 mls @ 1,000 mls/hr IV BOLUS ONE (unknown) (no (unknown) (unknown) Source: patient (units (unknown) date) unknown) (unknown) (no (unknown) (unknown) Stated (units (unkno wn) date) Complaint: asthma unknown) is kicking butt, weak, needs iron (unknown) (no (unknown) (unknown) Stop: 09/25/22 (units (unknown) date) 12:44 unknown) (unknown) (no (unknown) (unknown) Stop: 09/25/22 (units (unknown) date) 13:53 unknown) (unknown) (no (unknown) (unknown) Substance Use (units ( unknown) date) Type: does not unknown) use (unknown) (no (unknown) (unknown) TAKE 1 CAPSULE (units (unknown) date) BY MOUTH EVERY unknown) DAY (unknown) (no (unknown) (unknown) TAKE 1 TABLET BY (units (unknown) date) MOUTH AT BEDTIME unknown) (unknown) (no (unknown) (unknown) TAKE 1 TABLET BY (units (unknown) date) MOUTH EVERY DAY unknown) (unknown) (no (unknown) (unknown) TAKE 1 TABLET BY (units (unknown) date) MOUTH FOUR TIMES unknown) DAILY NEEDED (unknown) (no (unknown) (unknown) TAKE 2 TABLETS (units (unknown) date) BY MOUTH AT unknown) BEDTIME (unknown) (no (unknown) (unknown) TAKE 2 TABLETS (units (unknown) date) BY MOUTH THREE unknown) TIMES DAILY NEEDED (unknown) (no (unknown) (unknown) Temperature 97.4 (units (unknown) date) F L 09/25/22 unknown) 11:49 (unknown) (no (unknown) (unknown) Temperature 97.4 (units (unknown) date) F L unknown) (unknown) (no (unknown) (unknown) Temperature (units (un known) date) unknown) (unknown) (no (unknown) (unknown) This is a (units (unkno wn) date) 52-year-old unknown) female presents to the emergency department complaining of (unknown) (no (unknown) (unknown) Time Seen by (units (u nknown) date) Provider: unknown) 09/25/22 12:33 (unknown) (no (unknown) (unknown) Total Bilirubin (units (unknown) date) (0.2-1.3) mg/dL unknown) (unknown) (no (unknown) (unknown) Total Bilirubin (units (unknown) date) 0.5 (0.2-1.3) unknown) mg/dL (unknown) (no (unknown) (unknown) Total Counted (units ( unknown) date) 100 unknown) (unknown) (no (unknown) (unknown) Total Counted (units ( unknown) date) unknown) (unknown) (no (unknown) (unknown) Total Protein (units ( unknown) date) (6.3-8.2) g/dL unknown) (unknown) (no (unknown) (unknown) Total Protein (units ( unknown) date) 7.0 (6.3-8.2) unknown) g/dL (unknown) (no (unknown) (unknown) Troponin I Stat (units (unknown) date) unknown) (unknown) (no (unknown) (unknown) USE 2 PUFFS BY (units (unknown) date) MOUTH EVERY 4-6 unknown) HOURS. (unknown) (no (unknown) (unknown) Urinalysis and (units (unknown) date) Microscopic Stat unknown) (unknown) (no (unknown) (unknown) Vital Signs - 8 (units (unknown) date) hr unknown) (unknown) (no (unknown) (unknown) Vital Signs (units (un known) date) unknown) (unknown) (no (unknown) (unknown) Vital signs: (units (u nknown) date) unknown) (unknown) (no (unknown) (unknown) WBC (4.5-11.0) (units (unknown) date) X103/uL unknown) (unknown) (no (unknown) (unknown) WBC 13.9 H (units (unk nown) date) (4.5-11.0) unknown) X103/uL (unknown) (no (unknown) (unknown) XR chest 1V Stat (units (unknown) date) unknown) (unknown) (no (unknown) (unknown) Shaneka García, (units (unknown) date) MD [Primary Care unknown) Provider] (unknown) (no (unknown) (unknown) [Embedded Image (units (unknown) date) Not Available] unknown) (unknown) (no (unknown) (unknown) aerosol inhaler (units (unknown) date) Shortness Of unknown) Breath (unknown) (no (unknown) (unknown) albuterol (units (unkn own) date) sulfate 90 unknown) mcg/actuation 2 puff inhalation Q4HR PRN 01/10/22 04/30/22 (unknown) (no (unknown) (unknown) albuterol (units (unkn own) date) sulfate 90 unknown) mcg/actuation HFA aerosol inhaler (unknown) (no (unknown) (unknown) alcohol intake: (units (unknown) date) never unknown) (unknown) (no (unknown) (unknown) and on TPN. (units (un known) date) Chronically unknown) anemic. (unknown) (no (unknown) (unknown) asthma and has (units (unknown) date) been using her unknown) albuterol inhaler as prescribed without (unknown) (no (unknown) (unknown) baclofen 10 mg (units (unknown) date) tablet 1 tab PO unknown) QID 01/10/22 04/30/22 (unknown) (no (unknown) (unknown) baclofen 10 mg (units (unknown) date) tablet unknown) (unknown) (no (unknown) (unknown) cetirizine 10 mg (units (unknown) date) tablet 1 tab PO unknown) BEDTIME 01/10/22 04/30/22 (unknown) (no (unknown) (unknown) cetirizine 10 mg (units (unknown) date) tablet unknown) (unknown) (no (unknown) (unknown) chlorhexidine (units ( unknown) date) Allergy unknown) Intermediate Rash Verified 09/25/22 11:49 (unknown) (no (unknown) (unknown) constipation, (units ( unknown) date) melena. unknown) (unknown) (no (unknown) (unknown) device (units (unkno wn) date) unknown) (unknown) (no (unknown) (unknown) dextroamphetamin (units (unknown) date) e-amphetamine 20 unknown) 1 tab 1XD 05/02/22 05/02/22 (unknown) (no (unknown) (unknown) dextroamphetamin (units (unknown) date) e-amphetamine 20 unknown) mg tablet (unknown) (no (unknown) (unknown) dizziness. (units (unk nown) date) unknown) (unknown) (no (unknown) (unknown) duloxetine 60 mg (units (unknown) date) capsule,delayed 1 unknown) cap PO DAILY 01/10/22 04/30/22 (unknown) (no (unknown) (unknown) duloxetine 60 mg (units (unknown) date) capsule,delayed unknown) release(DR/EC) (unknown) (no (unknown) (unknown) fevers, (units (unkno wn) date) abdominal pain, unknown) significant chest pain, headaches, slurred speech, (unknown) (no (unknown) (unknown) fluticasone 250 (units (unknown) date) mcg-salmeterol 50 unknown) 1 ea inhalation BID 01/10/22 04/30/22 (unknown) (no (unknown) (unknown) fluticasone (units (un known) date) propion-salmetero unknown) l [[employer]ar Inhub] 250-50 mcg/dose blister with (unknown) (no (unknown) (unknown) fluticasone (units (un known) date) propionate 50 1 unknown) ea intranasal BID 01/10/22 04/30/22 (unknown) (no (unknown) (unknown) fluticasone (units (un known) date) propionate 50 unknown) mcg/actuation spray,suspension (unknown) (no (unknown) (unknown) history of (units (unk nown) date) candidal sepsis. unknown) Also has a history of seizures, opiate addiction, (unknown) (no (unknown) (unknown) household (units (unkn own) date) members: none unknown) (unknown) (no (unknown) (unknown) hydroxyzine HCl (units (unknown) date) 50 mg tablet 2 unknown) tab PO TID 01/10/22 04/30/22 (unknown) (no (unknown) (unknown) hydroxyzine HCl (units (unknown) date) 50 mg tablet unknown) (unknown) (no (unknown) (unknown) icterus. No (units (un known) date) injection or unknown) drainage. (unknown) (no (unknown) (unknown) infusion of (units (un known) date) fluconazole with unknown) plans to get the PICC in the next day.. Has a (unknown) (no (unknown) (unknown) inhalation (units (unk nown) date) ([employer] Inhub) unknown) (unknown) (no (unknown) (unknown) lamotrigine 200 (units (unknown) date) mg tablet 2 tab unknown) PO BEDTIME 01/10/22 04/30/22 (unknown) (no (unknown) (unknown) lamotrigine 200 (units (unknown) date) mg tablet unknown) (unknown) (no (unknown) (unknown) lidocaine (units (unkn own) date) AdvReac unknown) Intermediate Verified 09/25/22 11:49 (unknown) (no (unknown) (unknown) mcg/actuation (units ( unknown) date) nasal unknown) (unknown) (no (unknown) (unknown) mcg/dose blistr (units (unknown) date) powdr for unknown) (unknown) (no (unknown) (unknown) meloxicam 15 mg (units (unknown) date) tablet 1 tab unknown) DAILY 01/10/22 04/30/22 (unknown) (no (unknown) (unknown) meloxicam 15 mg (units (unknown) date) tablet unknown) (unknown) (no (unknown) (unknown) mg tablet (units (unkn own) date) unknown) (unknown) (no (unknown) (unknown) not recall any (units (unknown) date) specific event unknown) that caused the worsening shortness of breath. (unknown) (no (unknown) (unknown) pain with (units (unkn own) date) palpation of the unknown) chest (unknown) (no (unknown) (unknown) rales, or (units (unkn own) date) rhonchi. unknown) (unknown) (no (unknown) (unknown) release (units (unkno wn) date) unknown) (unknown) (no (unknown) (unknown) seizures, (units (unkn own) date) incoordination. unknown) (unknown) (no (unknown) (unknown) significant (units (un known) date) relief causing unknown) her come in. She denies any nausea, vomiting, (unknown) (no (unknown) (unknown) spray,suspension (units (unknown) date) unknown) (unknown) (no (unknown) (unknown) tonsillar (units (unkn own) date) hypertrophy or unknown) exudate. Airway patent. (unknown) (no (unknown) (unknown) tox [Urine Drug (units (unknown) date) Screen, Rapid] unknown) Stat (unknown) (no (unknown) (unknown) vancomycin (units (unk nown) date) AdvReac Verified unknown) 09/25/22 11:49 (unknown) (no (unknown) (unknown) weakness, or any (units (unknown) date) other concerning unknown) signs or symptoms. (unknown) (no (unknown) (unknown) worsening acute (units (unknown) date) on chronic unknown) shortness of breath onset 2 days ago. Patient does Result panel 226 (unknown) (no (unknown) (unknown) (no value) (units (unk nown) date) unknown) (unknown) (no (unknown) (unknown) 09/25/22 (units (unkno wn) date) unknown) (unknown) (no (unknown) (unknown) [address] [place] [address] (units (unknown) date) unknown) (unknown) (no (unknown) (unknown) : [id number] (units (u nknown) date) unknown) (unknown) (no (unknown) (unknown) Abdomen: (units (unkno wn) date) Hepatosplenomegaly unknown) is present within visualized portions. (unknown) (no (unknown) (unknown) Accession Number: (units (unknown) date) [id number] unknown) (unknown) (no (unknown) (unknown) After the (units (unkn own) date) administration of unknown) intravenous contrast, 2 mm thick sections acquired (unknown) (no (unknown) (unknown) Age/Sex: 52 / F (units (unknown) date) Date of Service: unknown) (unknown) (no (unknown) (unknown) NICOLASA Moy [id number] (unit s (unknown) date) unknown) (unknown) (no (unknown) (unknown) Approved by: Janice (unit s (unknown) date) Donal Arana on unknown) 09/25/2022 at 14:37 (unknown) (no (unknown) (unknown) Bilateral patchy (units (unknown) date) and confluent unknown) opacities as identified on chest x-ray most (unknown) (no (unknown) (unknown) Bones and chest (units (unknown) date) wall: No suspicious unknown) bony lesions. Ribs and thoracic spine (unknown) (no (unknown) (unknown) COMPARISON: [place] (units (unknown) date) [facility], CR, XR unknown) CHEST 1V, 09/25/2022, 12:11. (unknown) (no (unknown) (unknown) CT Scan Report (units (unknown) date) unknown) (unknown) (no (unknown) (unknown) : 1970 (units (unknown) date) Acct:[id number] unknown) (unknown) (no (unknown) (unknown) Dictated by: Janice (unit s (unknown) date) Donal Arana on unknown) 09/25/2022 at 14:35 (unknown) (no (unknown) (unknown) Esophagus is normal (unit s (unknown) date) in caliber, without unknown) hiatal hernia. (unknown) (no (unknown) (unknown) FINDINGS: (units (unkn own) date) unknown) (unknown) (no (unknown) (unknown) For radiation dose (units (unknown) date) reduction, the unknown) following was used: automated exposure (unknown) (no (unknown) (unknown) IMPRESSION: (units (un known) date) unknown) (unknown) (no (unknown) (unknown) INDICATIONS: SOB (units (unknown) date) and elevated D-dimer unknown) (unknown) (no (unknown) (unknown) Image quality: (units (unknown) date) Excellent. unknown) (unknown) (no (unknown) (unknown) [facility] (units (unknown) date) unknown) (unknown) (no (unknown) (unknown) Loc: ED (units (unkno wn) date) unknown) (unknown) (no (unknown) (unknown) Lungs and pleura: (units (unknown) date) Bilateral patchy and unknown) confluent opacities are present within (unknown) (no (unknown) (unknown) Mediastinal and (units (unknown) date) hilar adenopathy unknown) suspected to be reactive in nature. Recommend (unknown) (no (unknown) (unknown) Mediastinum: Heart (units (unknown) date) size is enlarged, unknown) without pericardial effusion. Mediastinal (unknown) (no (unknown) (unknown) No pulmonary (units (u nknown) date) embolism. unknown) (unknown) (no (unknown) (unknown) Ordering Provider: (units (unknown) date) Bethel Flynn P.A-[facility] unknown) (unknown) (no (unknown) (unknown) Otherwise,visualize (unit s (unknown) date) d unknown) (unknown) (no (unknown) (unknown) PROCEDURE: CT ANGIO (unit s (unknown) date) CHEST PE PROTOCOL unknown) (unknown) (no (unknown) (unknown) Patient: (units (unkno wn) date) Reg Quintanilla unknown) MR# (unknown) (no (unknown) (unknown) Procedure: CT angio (unit s (unknown) date) chest PE protocol unknown) (unknown) (no (unknown) (unknown) Pulmonary arteries: (unit s (unknown) date) Pulmonary arteries unknown) are normal in size, and demonstrate no (unknown) (no (unknown) (unknown) Signed (units (unkno wn) date) unknown) (unknown) (no (unknown) (unknown) TECHNIQUE: (units (unk nown) date) unknown) (unknown) (no (unknown) (unknown) adenopathy. (units (un known) date) unknown) (unknown) (no (unknown) (unknown) adjustment of mA (units (unknown) date) and/or kV according unknown) to patient size. (unknown) (no (unknown) (unknown) and (units (unkno wn) date) unknown) (unknown) (no (unknown) (unknown) appear intact (units ( unknown) date) unknown) (unknown) (no (unknown) (unknown) control, (units (unkno wn) date) unknown) (unknown) (no (unknown) (unknown) enhancement. (units (u nknown) date) unknown) (unknown) (no (unknown) (unknown) follow-up to (units (u nknown) date) document resolution. unknown) (unknown) (no (unknown) (unknown) from the (units (unkno wn) date) unknown) (unknown) (no (unknown) (unknown) hilar adenopathy is (unit s (unknown) date) present.. Thoracic unknown) aorta is normal in caliber and (unknown) (no (unknown) (unknown) intensity (units (unkn own) date) unknown) (unknown) (no (unknown) (unknown) interval (units (unkno wn) date) unknown) (unknown) (no (unknown) (unknown) intraluminal (units (u nknown) date) filling defects to unknown) suggest central pulmonary embolism. (unknown) (no (unknown) (unknown) most severe in the (units (unknown) date) right lung. unknown) (unknown) (no (unknown) (unknown) pneumonia. (units (unk nown) date) Recommend interval unknown) followup to document resolution and exclude (unknown) (no (unknown) (unknown) presence of (units (un known) date) unknown) (unknown) (no (unknown) (unknown) projection (MIP) (units (unknown) date) coronal and sagittal unknown) reformats were then acquired through the (unknown) (no (unknown) (unknown) pulmonary apices to (unit s (unknown) date) the posterior unknown) costophrenic angles. 3-dimensional maximum (unknown) (no (unknown) (unknown) suspicious for (units (unknown) date) unknown) (unknown) (no (unknown) (unknown) the lungs (units (unkn own) date) unknown) (unknown) (no (unknown) (unknown) thorax. (units (unkno wn) date) unknown) (unknown) (no (unknown) (unknown) throughout. Thyroid (unit s (unknown) date) gland is unknown) unremarkable. No axillary or supraclavicular (unknown) (no (unknown) (unknown) underlying (units (unk nown) date) noninfectious/noninf unknown) lammatory, potentially neoplastic mass. (unknown) (no (unknown) (unknown) upper abdominal (units (unknown) date) solid organs appear unknown) normal in the early arterial phase of Result panel 227 (unknown) (no (unknown) (unknown) (no value) (units (unk nown) date) unknown) (unknown) (no (unknown) (unknown) * Clinical (units (unk nown) date) Decision unknown) Rules/Scores evaluated: [ ] (unknown) (no (unknown) (unknown) * Independent (units ( unknown) date) discussions with: unknown) [ ] (unknown) (no (unknown) (unknown) * My imgaing (units (u nknown) date) interpretation: [ unknown) ] (unknown) (no (unknown) (unknown) * My lab (units (unkno wn) date) interpretation: [ unknown) ] (unknown) (no (unknown) (unknown) * Prior records (units (unknown) date) reviewed: Patient unknown) was last seen here 4 months ago for an IV (unknown) (no (unknown) (unknown) * differential (units (unknown) date) diagnosis unknown) includes but not limited to [ ] (unknown) (no (unknown) (unknown) 09/25/22 (units (unkno wn) date) 09/25/22 09/25/22 unknown) Range/Units (unknown) (no (unknown) (unknown) 09/25/22 11:54 (units (unknown) date) unknown) (unknown) (no (unknown) (unknown) 09/25/22 11:55 (units (unknown) date) unknown) (unknown) (no (unknown) (unknown) 09/25/22 12:12 (units (unknown) date) unknown) (unknown) (no (unknown) (unknown) 09/25/22 12:14 (units (unknown) date) unknown) (unknown) (no (unknown) (unknown) 09/25/22 12:28 (units (unknown) date) unknown) (unknown) (no (unknown) (unknown) 09/25/22 12:36 (units (unknown) date) unknown) (unknown) (no (unknown) (unknown) 09/25/22 12:44 (units (unknown) date) unknown) (unknown) (no (unknown) (unknown) 09/25/22 13:11 (units (unknown) date) unknown) (unknown) (no (unknown) (unknown) 09/25/22 (units (unkno wn) date) unknown) (unknown) (no (unknown) (unknown) 1 cap PO DAILY (units (unknown) date) unknown) (unknown) (no (unknown) (unknown) 1 ea INHALATION (units (unknown) date) BID unknown) (unknown) (no (unknown) (unknown) 1 ea INTRANASAL (units (unknown) date) BID unknown) (unknown) (no (unknown) (unknown) 1 tab 1XD (units (unkn own) date) unknown) (unknown) (no (unknown) (unknown) 1 tab DAILY (units (un known) date) unknown) (unknown) (no (unknown) (unknown) 1 tab PO BEDTIME (units (unknown) date) unknown) (unknown) (no (unknown) (unknown) 1 tab PO QID (units (u nknown) date) unknown) (unknown) (no (unknown) (unknown) 11:49 09/25/22 (units (unknown) date) unknown) (unknown) (no (unknown) (unknown) 11:55 12:28 (units (un known) date) 12:28 unknown) (unknown) (no (unknown) (unknown) 12 point review (units (unknown) date) of systems is unknown) negative except for those stated above (unknown) (no (unknown) (unknown) [address] [place] [address] (units (unknown) date) unknown) (unknown) (no (unknown) (unknown) 12:12 09/25/22 (units (unknown) date) unknown) (unknown) (no (unknown) (unknown) 12:13 09/25/22 (units (unknown) date) unknown) (unknown) (no (unknown) (unknown) 12:13 (units (unkno wn) date) unknown) (unknown) (no (unknown) (unknown) 12:15 09/25/22 (units (unknown) date) unknown) (unknown) (no (unknown) (unknown) 12:27 09/25/22 (units (unknown) date) unknown) (unknown) (no (unknown) (unknown) 12:27 (units (unkno wn) date) unknown) (unknown) (no (unknown) (unknown) 12:28 12:28 (units (un known) date) 12:44 unknown) (unknown) (no (unknown) (unknown) 12:30 09/25/22 (units (unknown) date) unknown) (unknown) (no (unknown) (unknown) 12:31 09/25/22 (units (unknown) date) unknown) (unknown) (no (unknown) (unknown) 12:31 (units (unkno wn) date) unknown) (unknown) (no (unknown) (unknown) 12:45 09/25/22 (units (unknown) date) unknown) (unknown) (no (unknown) (unknown) 12:45 (units (unkno wn) date) unknown) (unknown) (no (unknown) (unknown) 12:50 09/25/22 (units (unknown) date) unknown) (unknown) (no (unknown) (unknown) 13:00 09/25/22 (units (unknown) date) unknown) (unknown) (no (unknown) (unknown) 13:00 (units (unkno wn) date) unknown) (unknown) (no (unknown) (unknown) 13:10 09/25/22 (units (unknown) date) unknown) (unknown) (no (unknown) (unknown) 13:15 09/25/22 (units (unknown) date) unknown) (unknown) (no (unknown) (unknown) 13:15 (units (unkno wn) date) unknown) (unknown) (no (unknown) (unknown) 13:20 09/25/22 (units (unknown) date) unknown) (unknown) (no (unknown) (unknown) 13:20 (units (unkno wn) date) unknown) (unknown) (no (unknown) (unknown) 13:25 09/25/22 (units (unknown) date) unknown) (unknown) (no (unknown) (unknown) 13:30 09/25/22 (units (unknown) date) unknown) (unknown) (no (unknown) (unknown) 13:30 (units (unkno wn) date) unknown) (unknown) (no (unknown) (unknown) 13:35 09/25/22 (units (unknown) date) unknown) (unknown) (no (unknown) (unknown) 13:35 (units (unkno wn) date) unknown) (unknown) (no (unknown) (unknown) 13:40 09/25/22 (units (unknown) date) unknown) (unknown) (no (unknown) (unknown) 13:40 (units (unkno wn) date) unknown) (unknown) (no (unknown) (unknown) 2 puff (units (unkno wn) date) INHALATION Q4HR unknown) PRN (Reason: Shortness Of Breath) (unknown) (no (unknown) (unknown) 2 tab PO BEDTIME (units (unknown) date) unknown) (unknown) (no (unknown) (unknown) 2 tab PO TID (units (u nknown) date) unknown) (unknown) (no (unknown) (unknown) ? (units (unkno wn) date) unknown) (unknown) (no (unknown) (unknown) ALT (<35) IU/L (units (unknown) date) unknown) (unknown) (no (unknown) (unknown) ALT 25 (<35) (units (u nknown) date) IU/L unknown) (unknown) (no (unknown) (unknown) AST (14-36) IU/L (units (unknown) date) unknown) (unknown) (no (unknown) (unknown) AST 44 H (14-36) (units (unknown) date) IU/L unknown) (unknown) (no (unknown) (unknown) Accession (units (unkn own) date) Number: unknown) [id number] ?? (unknown) (no (unknown) (unknown) Acct:[id number] (units (unknown) date) unknown) (unknown) (no (unknown) (unknown) Addiction, opium (units (unknown) date) unknown) (unknown) (no (unknown) (unknown) Age/Sex: 52 / F (units (unknown) date) unknown) (unknown) (no (unknown) (unknown) Albumin (units (unkno wn) date) (3.5-5.0) g/dL unknown) (unknown) (no (unknown) (unknown) Albumin 3.0 L (units ( unknown) date) (3.5-5.0) g/dL unknown) (unknown) (no (unknown) (unknown) Albumin/Globulin (units (unknown) date) Ratio (1.0-2.8) unknown) (unknown) (no (unknown) (unknown) Albumin/Globulin (units (unknown) date) Ratio 0.8 L unknown) (1.0-2.8) (unknown) (no (unknown) (unknown) Albuterol/Ipratr (units (unknown) date) opium unknown) (Albuterol/Ipratr opium 3 Ml Ampul) 6 ml INH NOW ONE (unknown) (no (unknown) (unknown) Alkaline (units (unkno wn) date) Phosphatase unknown) (38-126) U/L (unknown) (no (unknown) (unknown) Alkaline (units (unkno wn) date) Phosphatase 203 H unknown) (38-126) U/L (unknown) (no (unknown) (unknown) Allergies (units (unkn own) date) unknown) (unknown) (no (unknown) (unknown) Allergy/AdvReac (units (unknown) date) Type Severity unknown) Reaction Status Date / Time (unknown) (no (unknown) (unknown) [place], [place] (units ( unknown) date) [id number] unknown) (unknown) (no (unknown) (unknown) Anisocytosis 1+ (units (unknown) date) H unknown) (unknown) (no (unknown) (unknown) Anisocytosis (units (u nknown) date) unknown) (unknown) (no (unknown) (unknown) Approved by: (units (u nknown) date) Janice Arana, unknown) Donal on 09/25/2022 at 13:13 ? (unknown) (no (unknown) (unknown) BACK: Nontender (units (unknown) date) without deformity unknown) or crepitance. No flank tenderness. (unknown) (no (unknown) (unknown) BUN (7-17) mg/dL (units (unknown) date) unknown) (unknown) (no (unknown) (unknown) BUN 44 H (7-17) (units (unknown) date) mg/dL unknown) (unknown) (no (unknown) (unknown) BUN/Creatinine (units (unknown) date) Ratio (6-22) unknown) (unknown) (no (unknown) (unknown) BUN/Creatinine (units (unknown) date) Ratio 49.4 H unknown) (6-22) (unknown) (no (unknown) (unknown) Band Neutrophils (units (unknown) date) % (3-7) % unknown) (unknown) (no (unknown) (unknown) Band Neutrophils (units (unknown) date) % 28.0 H (3-7) % unknown) (unknown) (no (unknown) (unknown) Baso # (Auto) (units ( unknown) date) Not Reportable unknown) (unknown) (no (unknown) (unknown) Baso # (Auto) (units ( unknown) date) unknown) (unknown) (no (unknown) (unknown) Baso % (Auto) (units ( unknown) date) Not Reportable unknown) (unknown) (no (unknown) (unknown) Baso % (Auto) (units ( unknown) date) unknown) (unknown) (no (unknown) (unknown) Basophils % (units (un known) date) (Manual) (0-1) % unknown) (unknown) (no (unknown) (unknown) Basophils % (units (un known) date) (Manual) 1.0 unknown) (0-1) % (unknown) (no (unknown) (unknown) Blood Culture (units ( unknown) date) Stat unknown) (unknown) (no (unknown) (unknown) Blood Pressure (units (unknown) date) 82/51 L 83/52 L unknown) (unknown) (no (unknown) (unknown) Blood Pressure (units (unknown) date) 83/50 L unknown) (unknown) (no (unknown) (unknown) Blood Pressure (units (unknown) date) 83/52 L unknown) (unknown) (no (unknown) (unknown) Blood Pressure (units (unknown) date) 84/53 L unknown) (unknown) (no (unknown) (unknown) Blood Pressure (units (unknown) date) 87/52 L unknown) (unknown) (no (unknown) (unknown) Blood Pressure (units (unknown) date) 88/53 L unknown) (unknown) (no (unknown) (unknown) Blood Pressure (units (unknown) date) 91/50 L 90/52 L unknown) (unknown) (no (unknown) (unknown) Blood Pressure (units (unknown) date) 94/54 L 99/52 L unknown) (unknown) (no (unknown) (unknown) Blood Pressure (units (unknown) date) 96/60 09/25/22 unknown) 11:49 (unknown) (no (unknown) (unknown) Blood Pressure (units (unknown) date) 96/60 85/52 L unknown) (unknown) (no (unknown) (unknown) Blood Pressure (units (unknown) date) unknown) (unknown) (no (unknown) (unknown) Bones and chest (units (unknown) date) wall:? No unknown) suspicious bony lesions.? Overlying soft tissues (unknown) (no (unknown) (unknown) CARDIOVASCULAR: (units (unknown) date) Denies chest unknown) pain, palpitations, orthopnea, edema, (unknown) (no (unknown) (unknown) CARDIOVASCULAR: (units (unknown) date) Regular rate and unknown) rhythm without murmurs, gallops, or rubs. Mild (unknown) (no (unknown) (unknown) COMPARISON:? (units (u nknown) date) [facility], unknown) CR, XR CHEST 2V, 06/04/2022, 12:38. (unknown) (no (unknown) (unknown) CT angio chest (units (unknown) date) PE protocol Stat unknown) (unknown) (no (unknown) (unknown) Cachexia (units (unkno wn) date) unknown) (unknown) (no (unknown) (unknown) Calcium (units (o wn) date) (8.4-10.2) mg/dL unknown) (unknown) (no (unknown) (unknown) Calcium 8.4 (units (un known) date) (8.4-10.2) mg/dL unknown) (unknown) (no (unknown) (unknown) Carbon Dioxide (units (unknown) date) (22-32) mmol/L unknown) (unknown) (no (unknown) (unknown) Carbon Dioxide (units (unknown) date) 22 (22-32) mmol/L unknown) (unknown) (no (unknown) (unknown) Chest x-ray: (units (u nknown) date) unknown) (unknown) (no (unknown) (unknown) Chief Complaint: (units (unknown) date) Upper Respiratory unknown) Symptoms (unknown) (no (unknown) (unknown) Chloride (units (unkno wn) date) (98-107) mmol/L unknown) (unknown) (no (unknown) (unknown) Chloride 98 (units (un known) date) (98-107) mmol/L unknown) (unknown) (no (unknown) (unknown) Complete Blood (units (unknown) date) Count AUTO DIFF unknown) Stat (unknown) (no (unknown) (unknown) Comprehensive (units ( unknown) date) Metabolic Panel unknown) Stat (unknown) (no (unknown) (unknown) Course (units (o wn) date) unknown) (unknown) (no (unknown) (unknown) Covid-19 + FLU (units (unknown) date) A/B + RSV - PCR unknown) Stat (unknown) (no (unknown) (unknown) Creatinine (units (unk nown) date) (0.52-1.04) mg/dL unknown) (unknown) (no (unknown) (unknown) Creatinine 0.89 (units (unknown) date) (0.52-1.04) mg/dL unknown) (unknown) (no (unknown) (unknown) D Dimer Stat (units (u nknown) date) unknown) (unknown) (no (unknown) (unknown) D-Dimer (<500) (units (unknown) date) ng/ml unknown) (unknown) (no (unknown) (unknown) D-Dimer 3576 H (units (unknown) date) (<500) ng/ml unknown) (unknown) (no (unknown) (unknown) : 1970 (units (unknown) date) Acct:[id number] unknown) (unknown) (no (unknown) (unknown) : 1970 (units (unknown) date) unknown) (unknown) (no (unknown) (unknown) Date of Service: (units (unknown) date) 09/25/22 unknown) (unknown) (no (unknown) (unknown) Departure (units (unkn own) date) unknown) (unknown) (no (unknown) (unknown) Dictated by: (units (u nknown) date) Janice Arana unknownTomasa Mansfield on 09/25/2022 at 13:12 ? ? (unknown) (no (unknown) (unknown) Discharge Plan (units (unknown) date) unknown) (unknown) (no (unknown) (unknown) Discontinued (units (u nknown) date) Medications unknown) (unknown) (no (unknown) (unknown) Disposition: [ ] (units (unknown) date) unknown) (unknown) (no (unknown) (unknown) Documented By: (units (unknown) date) JZF unknown) (unknown) (no (unknown) (unknown) Documented By: (units (unknown) date) NR unknown) (unknown) (no (unknown) (unknown) ED Course: [ ] (units (unknown) date) unknown) (unknown) (no (unknown) (unknown) ED Orders (units (unkn own) date) unknown) (unknown) (no (unknown) (unknown) EKG-12 Lead Stat (units (unknown) date) unknown) (unknown) (no (unknown) (unknown) ENT: Nose (units (unkn own) date) without bleeding, unknown) purulent drainage. Throat without erythema, (unknown) (no (unknown) (unknown) ER Physician: (units ( unknown) date) Bethel Flynn P.A-C unknown) (unknown) (no (unknown) (unknown) EXTREMITIES: No (units (unknown) date) edema or joint unknown) tenderness. (unknown) (no (unknown) (unknown) EYES: Pupils (units (u nknown) date) equal round and unknown) reactive. Extraocular motions intact. No scleral (unknown) (no (unknown) (unknown) Emergency Report (units (unknown) date) unknown) (unknown) (no (unknown) (unknown) Eos % (Auto) Not (units (unknown) date) Reportable unknown) (unknown) (no (unknown) (unknown) Eos % (Auto) (units (u nknown) date) unknown) (unknown) (no (unknown) (unknown) Estimated GFR > (units (unknown) date) 60 (>60) mL/min unknown) (unknown) (no (unknown) (unknown) Estimated GFR (units ( unknown) date) (>60) mL/min unknown) (unknown) (no (unknown) (unknown) Exam Narrative: (units (unknown) date) unknown) (unknown) (no (unknown) (unknown) Exam (units (unkno wn) date) unknown) (unknown) (no (unknown) (unknown) FINDINGS:? (units (unk nown) date) unknown) (unknown) (no (unknown) (unknown) GASTROINTESTINAL (units (unknown) date) : Abdomen soft, unknown) non-tender, nondistended. (unknown) (no (unknown) (unknown) GASTROINTESTINAL (units (unknown) date) : Denies nausea, unknown) vomiting, abdominal pain, diarrhea, (unknown) (no (unknown) (unknown) GENERAL: Denies (units (unknown) date) chills, fatigue, unknown) malaise, fever, sweats. (unknown) (no (unknown) (unknown) GENERAL: (units (unkno wn) date) Well-developed unknown) patient, in mild distress. (unknown) (no (unknown) (unknown) : Denies (units (unk nown) date) dysuria, unknown) frequency, incontinence, hematuria, urinary retention. (unknown) (no (unknown) (unknown) Gastroparesis (units ( unknown) date) unknown) (unknown) (no (unknown) (unknown) General (units (unkno wn) date) unknown) (unknown) (no (unknown) (unknown) Globulin (units (unkno wn) date) (1.7-4.1) g/dL unknown) (unknown) (no (unknown) (unknown) Globulin 4.0 (units (u nknown) date) (1.7-4.1) g/dL unknown) (unknown) (no (unknown) (unknown) Glucose (70-100) (units (unknown) date) mg/dL unknown) (unknown) (no (unknown) (unknown) Glucose 117 H (units ( unknown) date) (70-100) mg/dL unknown) (unknown) (no (unknown) (unknown) HEAD: (units (unkno wn) date) Atraumatic. unknown) Normocephalic. (unknown) (no (unknown) (unknown) HEENT: Denies (units ( unknown) date) sinus pain, ear unknown) pain, sore throat, difficulty swallowing, (unknown) (no (unknown) (unknown) HPI - URI/Sore (units (unknown) date) Throat unknown) (unknown) (no (unknown) (unknown) HPI Narrative: (units (unknown) date) unknown) (unknown) (no (unknown) (unknown) Hct (36-46) % (units ( unknown) date) unknown) (unknown) (no (unknown) (unknown) Hct 27.7 L (units (unk nown) date) (36-46) % unknown) (unknown) (no (unknown) (unknown) Hgb (12.0-16.0) (units (unknown) date) g/dL unknown) (unknown) (no (unknown) (unknown) Hgb 8.7 L (units (unkn own) date) (12.0-16.0) g/dL unknown) (unknown) (no (unknown) (unknown) History of (units (unk nown) date) Present Illness unknown) (unknown) (no (unknown) (unknown) History of (units (unk nown) date) gastrectomy unknown) (unknown) (no (unknown) (unknown) Home Medications (units (unknown) date) unknown) (unknown) (no (unknown) (unknown) IMPRESSION:? (units (u nknown) date) Patchy bilateral unknown) opacities suspicious for pneumonia. (unknown) (no (unknown) (unknown) INDICATIONS:? (units ( unknown) date) Shortness of unknown) breath (unknown) (no (unknown) (unknown) INHALE 1 PUFF BY (units (unknown) date) MOUTH TWICE unknown) DAILY. RINSE MOUTH AFTER USE (unknown) (no (unknown) (unknown) INR (0.9-1.3) (units ( unknown) date) unknown) (unknown) (no (unknown) (unknown) INR 1.6 H (units (unkn own) date) (0.9-1.3) unknown) (unknown) (no (unknown) (unknown) Imaging Data (units (u nknown) date) unknown) (unknown) (no (unknown) (unknown) Influenza A (units (un known) date) (RT-PCR) unknown) (NEGATIVE) (unknown) (no (unknown) (unknown) Influenza A (units (un known) date) (RT-PCR) Flu a unknown) negative (NEGATIVE) (unknown) (no (unknown) (unknown) Influenza B (units (un known) date) (RT-PCR) unknown) (NEGATIVE) (unknown) (no (unknown) (unknown) Influenza B (units (un known) date) (RT-PCR) Flu b unknown) negative (NEGATIVE) (unknown) (no (unknown) (unknown) Initial Vital (units ( unknown) date) Signs unknown) (unknown) (no (unknown) (unknown) Initial Vital (units ( unknown) date) Signs: unknown) (unknown) (no (unknown) (unknown) [facility] (units (unknown) date) [address] unknown) [place] [address] (unknown) (no (unknown) (unknown) [facility] (units (unknown) date) unknown) (unknown) (no (unknown) (unknown) Lab Data (units (unkno wn) date) unknown) (unknown) (no (unknown) (unknown) Lab Results (units (un known) date) unknown) (unknown) (no (unknown) (unknown) Labs: (units (unkno wn) date) unknown) (unknown) (no (unknown) (unknown) Lactate (units (unkno wn) date) (0.7-2.1) mmol/L unknown) (unknown) (no (unknown) (unknown) Lactate (Lactic (units (unknown) date) Acid) Stat unknown) (unknown) (no (unknown) (unknown) Lactate 2.6 H (units ( unknown) date) (0.7-2.1) mmol/L unknown) (unknown) (no (unknown) (unknown) Last Admin: (units (un known) date) 09/25/22 12:49 unknown) Dose: 6 ml (unknown) (no (unknown) (unknown) Last Admin: (units (un known) date) 09/25/22 13:19 unknown) Dose: 1,000 mls/hr (unknown) (no (unknown) (unknown) Loc: ED (units (unkno wn) date) unknown) (unknown) (no (unknown) (unknown) Lungs and (units (unkn own) date) pleura:? Patchy unknown) right middle and lower lobe opacities and to a lesser (unknown) (no (unknown) (unknown) Lymph # (Auto) (units (unknown) date) Not Reportable unknown) (unknown) (no (unknown) (unknown) Lymph # (Auto) (units (unknown) date) unknown) (unknown) (no (unknown) (unknown) Lymph % (Auto) (units (unknown) date) Not Reportable unknown) (unknown) (no (unknown) (unknown) Lymph % (Auto) (units (unknown) date) unknown) (unknown) (no (unknown) (unknown) Lymphocytes % (units ( unknown) date) (Manual) (25-45) unknown) % (unknown) (no (unknown) (unknown) Lymphocytes % (units ( unknown) date) (Manual) 9.0 L unknown) (25-45) % (unknown) (no (unknown) (unknown) [id number] (units (unk nown) date) unknown) (unknown) (no (unknown) (unknown) MCH (26-34) PG (units (unknown) date) unknown) (unknown) (no (unknown) (unknown) MCH 21.4 L (units (unk nown) date) (26-34) PG unknown) (unknown) (no (unknown) (unknown) MCHC (30-36) % (units (unknown) date) unknown) (unknown) (no (unknown) (unknown) MCHC 31.4 (units (unkn own) date) (30-36) % unknown) (unknown) (no (unknown) (unknown) MCV (80-100) fL (units (unknown) date) unknown) (unknown) (no (unknown) (unknown) MCV 68.4 L (units (unk nown) date) (80-100) fL unknown) (unknown) (no (unknown) (unknown) MDM - URI/Sore (units (unknown) date) Throat unknown) (unknown) (no (unknown) (unknown) MDM Narrative (units ( unknown) date) unknown) (unknown) (no (unknown) (unknown) MDM (units (unkno wn) date) unknown) (unknown) (no (unknown) (unknown) MR#: [id number] (units (unknown) date) unknown) (unknown) (no (unknown) (unknown) MUSCULOSKELETAL: (units (unknown) date) denies weakness, unknown) joint pain, or bony pain (unknown) (no (unknown) (unknown) Measure peak (units (u nknown) date) expiratory flow unknown) ONCE (unknown) (no (unknown) (unknown) Mediastinum:? (units ( unknown) date) Mediastinal unknown) contours appear normal.? Heart size is normal.? (unknown) (no (unknown) (unknown) Medical History (units (unknown) date) (Reviewed unknown) 06/09/22 @ 13:35 by Madie Polo MD) (unknown) (no (unknown) (unknown) Medical decision (units (unknown) date) making narrative: unknown) (unknown) (no (unknown) (unknown) Medication (units (unk nown) date) Instructions unknown) Recorded Confirmed (unknown) (no (unknown) (unknown) Metamyelocytes % (units (unknown) date) (-0) % unknown) (unknown) (no (unknown) (unknown) Metamyelocytes % (units (unknown) date) 3.0 H (-0) % unknown) (unknown) (no (unknown) (unknown) Microcytosis 2+ (units (unknown) date) H unknown) (unknown) (no (unknown) (unknown) Microcytosis (units (u nknown) date) unknown) (unknown) (no (unknown) (unknown) Mode of arrival: (units (unknown) date) Wheelchair unknown) (unknown) (no (unknown) (unknown) Hyde # (Auto) (units ( unknown) date) Not Reportable unknown) (unknown) (no (unknown) (unknown) Hyde # (Auto) (units ( unknown) date) unknown) (unknown) (no (unknown) (unknown) Hyde % (Auto) (units ( unknown) date) Not Reportable unknown) (unknown) (no (unknown) (unknown) Hyde % (Auto) (units ( unknown) date) unknown) (unknown) (no (unknown) (unknown) Monocytes % (units (un known) date) (Manual) (2-11) % unknown) (unknown) (no (unknown) (unknown) Monocytes % (units (un known) date) (Manual) 8.0 unknown) (2-11) % (unknown) (no (unknown) (unknown) NECK: Trachea (units ( unknown) date) midline. Non unknown) tender (unknown) (no (unknown) (unknown) NEURO: AOx3. (units (u nknown) date) unknown) (unknown) (no (unknown) (unknown) NEUROLOGIC: (units (un known) date) Denies weakness, unknown) headache, numbness, change in speech, confusion, (unknown) (no (unknown) (unknown) NT-Pro-B (units (unkno wn) date) Natriuret Pep unknown) (<125) pg/mL (unknown) (no (unknown) (unknown) NT-Pro-B (units (unkno wn) date) Natriuret Pep unknown) 7310 H (<125) pg/mL (unknown) (no (unknown) (unknown) NT-proBNP (units (unkn own) date) (BNP-Adult 18+) unknown) Stat (unknown) (no (unknown) (unknown) Narrative (units (unkn own) date) unknown) (unknown) (no (unknown) (unknown) Narrative: (units (unk nown) date) unknown) (unknown) (no (unknown) (unknown) Neut % (Auto) (units ( unknown) date) Not Reportable unknown) (unknown) (no (unknown) (unknown) Neut % (Auto) (units ( unknown) date) unknown) (unknown) (no (unknown) (unknown) Neutrophils # (units ( unknown) date) (Manual) unknown) ([phone]) /uL (unknown) (no (unknown) (unknown) Neutrophils # (units ( unknown) date) (Manual) [id number] H unknown) ([id number]) /uL (unknown) (no (unknown) (unknown) No Action (units (unkn own) date) unknown) (unknown) (no (unknown) (unknown) On parenteral (units ( unknown) date) nutrition unknown) (unknown) (no (unknown) (unknown) Ordered: (units (unkno wn) date) unknown) (unknown) (no (unknown) (unknown) Ordering (units (unkno wn) date) Provider: unknown) Malick Gilmore MD (unknown) (no (unknown) (unknown) Orders (units (unkno wn) date) unknown) (unknown) (no (unknown) (unknown) Oxygen Delivery (units (unknown) date) Method Room Air unknown) 09/25/22 11:49 (unknown) (no (unknown) (unknown) Oxygen Delivery (units (unknown) date) Method Room Air unknown) Room Air (unknown) (no (unknown) (unknown) Oxygen Delivery (units (unknown) date) Method Room Air unknown) (unknown) (no (unknown) (unknown) Oxygen Delivery (units (unknown) date) Method unknown) (unknown) (no (unknown) (unknown) PROCEDURE:? XR (units (unknown) date) CHEST 1V unknown) (unknown) (no (unknown) (unknown) PSYCHIATRIC: No (units (unknown) date) concerning unknown) psychosocial issues. (unknown) (no (unknown) (unknown) PT (10.1-12.7) (units (unknown) date) SECONDS unknown) (unknown) (no (unknown) (unknown) PT 18.4 H (units (unkn own) date) (10.1-12.7) unknown) SECONDS (unknown) (no (unknown) (unknown) Patient (units (unkno wn) date) Comments: unknown) (unknown) (no (unknown) (unknown) Patient History (units (unknown) date) unknown) (unknown) (no (unknown) (unknown) Patient: (units (unkno wn) date) Reg Quintanilla unknown) F MR#: (unknown) (no (unknown) (unknown) Patient: (units (unkno wn) date) Reg Quintanilla unknown) F (unknown) (no (unknown) (unknown) Penicillins (units (un known) date) Allergy Severe unknown) Anaphylaxis Verified 09/25/22 11:49 (unknown) (no (unknown) (unknown) Plt Count (units (unkn own) date) (150-400) X103/uL unknown) (unknown) (no (unknown) (unknown) Plt Count 301 (units ( unknown) date) (150-400) X103/uL unknown) (unknown) (no (unknown) (unknown) Potassium (units (unkn own) date) (3.4-5.1) mmol/L unknown) (unknown) (no (unknown) (unknown) Potassium 3.8 (units ( unknown) date) (3.4-5.1) mmol/L unknown) (unknown) (no (unknown) (unknown) Prescriptions: (units (unknown) date) unknown) (unknown) (no (unknown) (unknown) Procedure: XR (units ( unknown) date) chest 1V unknown) (unknown) (no (unknown) (unknown) Prothrombin Time (units (unknown) date) INR Stat unknown) (unknown) (no (unknown) (unknown) Pulse Oximetry (units (unknown) date) 97 99 unknown) (unknown) (no (unknown) (unknown) Pulse Oximetry (units (unknown) date) 98 09/25/22 11:49 unknown) (unknown) (no (unknown) (unknown) Pulse Oximetry (units (unknown) date) 98 97 unknown) (unknown) (no (unknown) (unknown) Pulse Oximetry (units (unknown) date) 98 98 unknown) (unknown) (no (unknown) (unknown) Pulse Oximetry (units (unknown) date) 98 99 98 unknown) (unknown) (no (unknown) (unknown) Pulse Oximetry (units (unknown) date) 98 unknown) (unknown) (no (unknown) (unknown) Pulse Oximetry (units (unknown) date) 99 98 unknown) (unknown) (no (unknown) (unknown) Pulse Oximetry (units (unknown) date) 99 unknown) (unknown) (no (unknown) (unknown) Pulse Oximetry (units (unknown) date) unknown) (unknown) (no (unknown) (unknown) Pulse Rate 65 69 (units (unknown) date) unknown) (unknown) (no (unknown) (unknown) Pulse Rate 66 66 (units (unknown) date) unknown) (unknown) (no (unknown) (unknown) Pulse Rate 67 (units ( unknown) date) unknown) (unknown) (no (unknown) (unknown) Pulse Rate 69 (units ( unknown) date) 09/25/22 11:49 unknown) (unknown) (no (unknown) (unknown) Pulse Rate 69 68 (units (unknown) date) 68 unknown) (unknown) (no (unknown) (unknown) Pulse Rate 69 69 (units (unknown) date) unknown) (unknown) (no (unknown) (unknown) Pulse Rate 69 71 (units (unknown) date) unknown) (unknown) (no (unknown) (unknown) Pulse Rate 69 (units ( unknown) date) unknown) (unknown) (no (unknown) (unknown) Pulse Rate 75 (units ( unknown) date) unknown) (unknown) (no (unknown) (unknown) Pulse Rate 76 76 (units (unknown) date) unknown) (unknown) (no (unknown) (unknown) RBC (4.0-5.2) (units ( unknown) date) X106/uL unknown) (unknown) (no (unknown) (unknown) RBC 4.05 (units (unkno wn) date) (4.0-5.2) X106/uL unknown) (unknown) (no (unknown) (unknown) RBC Morphology (units (unknown) date) See below unknown) (unknown) (no (unknown) (unknown) RBC Morphology (units (unknown) date) unknown) (unknown) (no (unknown) (unknown) RDW (11.6-14.8) (units (unknown) date) % unknown) (unknown) (no (unknown) (unknown) RDW 17.4 H (units (unk nown) date) (11.6-14.8) % unknown) (unknown) (no (unknown) (unknown) RESPIRATORY: (units (un known) date) Clear to unknown) auscultation. Breath sounds equal bilaterally. No wheezes, (unknown) (no (unknown) (unknown) RESPIRATORY: (units (u nknown) date) Reports shortness unknown) of breath (unknown) (no (unknown) (unknown) RSV (PCR) (units (unkn own) date) (Negative) unknown) (unknown) (no (unknown) (unknown) RSV (PCR) (units (unkn own) date) Negative unknown) (Negative) (unknown) (no (unknown) (unknown) RT Consult Eval (units (unknown) date) and Treat NOW unknown) (unknown) (no (unknown) (unknown) Radiologist's (units ( unknown) date) Impression: unknown) (unknown) (no (unknown) (unknown) Referrals: (units (unk nown) date) unknown) (unknown) (no (unknown) (unknown) Related Data (units (u nknown) date) unknown) (unknown) (no (unknown) (unknown) Respiratory Rate (units (unknown) date) 16 09/25/22 11:49 unknown) (unknown) (no (unknown) (unknown) Respiratory Rate (units (unknown) date) 16 unknown) (unknown) (no (unknown) (unknown) Respiratory Rate (units (unknown) date) 17 16 unknown) (unknown) (no (unknown) (unknown) Respiratory Rate (units (unknown) date) 18 unknown) (unknown) (no (unknown) (unknown) Respiratory Rate (units (unknown) date) 19 unknown) (unknown) (no (unknown) (unknown) Respiratory Rate (units (unknown) date) 20 26 H unknown) (unknown) (no (unknown) (unknown) Respiratory Rate (units (unknown) date) 23 18 unknown) (unknown) (no (unknown) (unknown) Respiratory Rate (units (unknown) date) 23 unknown) (unknown) (no (unknown) (unknown) Respiratory Rate (units (unknown) date) 27 H 25 H unknown) (unknown) (no (unknown) (unknown) Respiratory Rate (units (unknown) date) 31 H unknown) (unknown) (no (unknown) (unknown) Respiratory Rate (units (unknown) date) unknown) (unknown) (no (unknown) (unknown) Review of (units (unkn own) date) Systems unknown) (unknown) (no (unknown) (unknown) SARS-CoV-2 (PCR) (units (unknown) date) (Negative) unknown) (unknown) (no (unknown) (unknown) SARS-CoV-2 (PCR) (units (unknown) date) Negative unknown) (Negative) (unknown) (no (unknown) (unknown) SHAKE LIQUID AND (units (unknown) date) USE 1 SPRAY IN unknown) EACH NOSTRIL TWICE DAILY (unknown) (no (unknown) (unknown) SKIN: Denies (units (u nknown) date) rash, skin unknown) lesions, or other (unknown) (no (unknown) (unknown) SKIN: PICC line (units (unknown) date) in place to right unknown) upper chest, no evidence of any kind of (unknown) (no (unknown) (unknown) Seg Neutrophils (units (unknown) date) % (38-70) % unknown) (unknown) (no (unknown) (unknown) Seg Neutrophils (units (unknown) date) % 51.0 (38-70) % unknown) (unknown) (no (unknown) (unknown) Seizure disorder (units (unknown) date) unknown) (unknown) (no (unknown) (unknown) Shared Decision (units (unknown) date) Making: [ ] unknown) (unknown) (no (unknown) (unknown) She has some (units (u nknown) date) mild chest pain unknown) with deep inspiration. Patient has a history of (unknown) (no (unknown) (unknown) Signed By: (units (unk nown) date) unknown) (unknown) (no (unknown) (unknown) Signed (units (unkno wn) date) unknown) (unknown) (no (unknown) (unknown) Smoking Status: (units (unknown) date) Former smoker unknown) (unknown) (no (unknown) (unknown) Social (units (unkno wn) date) Considerations: [ unknown) ] (unknown) (no (unknown) (unknown) Social History (units (unknown) date) (Reviewed unknown) 06/09/22 @ 13:35 by Madie Polo MD) (unknown) (no (unknown) (unknown) Sodium (137-145) (units (unknown) date) mmol/L unknown) (unknown) (no (unknown) (unknown) Sodium 134 L (units (u nknown) date) (137-145) mmol/L unknown) (unknown) (no (unknown) (unknown) Sodium Chloride (units (unknown) date) (Normal Saline unknown) 0.9%) 1,000 mls @ 1,000 mls/hr IV BOLUS ONE (unknown) (no (unknown) (unknown) Source: patient (units (unknown) date) unknown) (unknown) (no (unknown) (unknown) Stated (units (unkno wn) date) Complaint: asthma unknown) is kicking butt, weak, needs iron (unknown) (no (unknown) (unknown) Stop: 09/25/22 (units (unknown) date) 12:44 unknown) (unknown) (no (unknown) (unknown) Stop: 09/25/22 (units (unknown) date) 13:53 unknown) (unknown) (no (unknown) (unknown) Substance Use (units ( unknown) date) Type: does not unknown) use (unknown) (no (unknown) (unknown) Surgical changes (units (unknown) date) and devices:? unknown) Right-sided catheter is present with distal tip (unknown) (no (unknown) (unknown) TAKE 1 CAPSULE (units (unknown) date) BY MOUTH EVERY unknown) DAY (unknown) (no (unknown) (unknown) TAKE 1 TABLET BY (units (unknown) date) MOUTH AT BEDTIME unknown) (unknown) (no (unknown) (unknown) TAKE 1 TABLET BY (units (unknown) date) MOUTH EVERY DAY unknown) (unknown) (no (unknown) (unknown) TAKE 1 TABLET BY (units (unknown) date) MOUTH FOUR TIMES unknown) DAILY NEEDED (unknown) (no (unknown) (unknown) TAKE 2 TABLETS (units (unknown) date) BY MOUTH AT unknown) BEDTIME (unknown) (no (unknown) (unknown) TAKE 2 TABLETS (units (unknown) date) BY MOUTH THREE unknown) TIMES DAILY NEEDED (unknown) (no (unknown) (unknown) TECHNIQUE:? One (units (unknown) date) view of the chest unknown) was acquired.? (unknown) (no (unknown) (unknown) Temperature 97.4 (units (unknown) date) F L 09/25/22 unknown) 11:49 (unknown) (no (unknown) (unknown) Temperature 97.4 (units (unknown) date) F L unknown) (unknown) (no (unknown) (unknown) Temperature (units (un known) date) unknown) (unknown) (no (unknown) (unknown) This is a (units (unkno wn) date) 52-year-old unknown) female presents to the emergency department complaining of (unknown) (no (unknown) (unknown) Time Seen by (units (u nknown) date) Provider: unknown) 09/25/22 12:33 (unknown) (no (unknown) (unknown) Total Bilirubin (units (unknown) date) (0.2-1.3) mg/dL unknown) (unknown) (no (unknown) (unknown) Total Bilirubin (units (unknown) date) 0.5 (0.2-1.3) unknown) mg/dL (unknown) (no (unknown) (unknown) Total Counted (units ( unknown) date) 100 unknown) (unknown) (no (unknown) (unknown) Total Counted (units ( unknown) date) unknown) (unknown) (no (unknown) (unknown) Total Protein (units ( unknown) date) (6.3-8.2) g/dL unknown) (unknown) (no (unknown) (unknown) Total Protein (units ( unknown) date) 7.0 (6.3-8.2) unknown) g/dL (unknown) (no (unknown) (unknown) Troponin I < (units (u nknown) date) 0.012 unknown) (0.01-0.034) ng/mL (unknown) (no (unknown) (unknown) Troponin I (units (unk nown) date) (0.01-0.034) unknown) ng/mL (unknown) (no (unknown) (unknown) Troponin I Stat (units (unknown) date) unknown) (unknown) (no (unknown) (unknown) USE 2 PUFFS BY (units (unknown) date) MOUTH EVERY 4-6 unknown) HOURS. (unknown) (no (unknown) (unknown) Urinalysis and (units (unknown) date) Microscopic Stat unknown) (unknown) (no (unknown) (unknown) Vital Signs - 8 (units (unknown) date) hr unknown) (unknown) (no (unknown) (unknown) Vital Signs (units (un known) date) unknown) (unknown) (no (unknown) (unknown) Vital signs: (units (u nknown) date) unknown) (unknown) (no (unknown) (unknown) WBC (4.5-11.0) (units (unknown) date) X103/uL unknown) (unknown) (no (unknown) (unknown) WBC 13.9 H (units (unk nown) date) (4.5-11.0) unknown) X103/uL (unknown) (no (unknown) (unknown) XR chest 1V Stat (units (unknown) date) unknown) (unknown) (no (unknown) (unknown) XRay Report (units (un known) date) unknown) (unknown) (no (unknown) (unknown) Shaneka García, (units (unknown) date) MD [Primary Care unknown) Provider] (unknown) (no (unknown) (unknown) [Embedded Image (units (unknown) date) Not Available] unknown) (unknown) (no (unknown) (unknown) aerosol inhaler (units (unknown) date) Shortness Of unknown) Breath (unknown) (no (unknown) (unknown) albuterol (units (unkn own) date) sulfate 90 unknown) mcg/actuation 2 puff inhalation Q4HR PRN 01/10/22 04/30/22 (unknown) (no (unknown) (unknown) albuterol (units (unkn own) date) sulfate 90 unknown) mcg/actuation HFA aerosol inhaler (unknown) (no (unknown) (unknown) alcohol intake: (units (unknown) date) never unknown) (unknown) (no (unknown) (unknown) and on TPN. (units (un known) date) Chronically unknown) anemic. (unknown) (no (unknown) (unknown) appear (units (unkno wn) date) unknown) (unknown) (no (unknown) (unknown) asthma and has (units (unknown) date) been using her unknown) albuterol inhaler as prescribed without (unknown) (no (unknown) (unknown) baclofen 10 mg (units (unknown) date) tablet 1 tab PO unknown) QID 01/10/22 04/30/22 (unknown) (no (unknown) (unknown) baclofen 10 mg (units (unknown) date) tablet unknown) (unknown) (no (unknown) (unknown) cetirizine 10 mg (units (unknown) date) tablet 1 tab PO unknown) BEDTIME 01/10/22 04/30/22 (unknown) (no (unknown) (unknown) cetirizine 10 mg (units (unknown) date) tablet unknown) (unknown) (no (unknown) (unknown) chlorhexidine (units ( unknown) date) Allergy unknown) Intermediate Rash Verified 09/25/22 11:49 (unknown) (no (unknown) (unknown) constipation, (units ( unknown) date) melena. unknown) (unknown) (no (unknown) (unknown) degree (units (unkno wn) date) unknown) (unknown) (no (unknown) (unknown) device (units (unkno wn) date) unknown) (unknown) (no (unknown) (unknown) dextroamphetamin (units (unknown) date) e-amphetamine 20 unknown) 1 tab 1XD 05/02/22 05/02/22 (unknown) (no (unknown) (unknown) dextroamphetamin (units (unknown) date) e-amphetamine 20 unknown) mg tablet (unknown) (no (unknown) (unknown) dizziness. (units (unk nown) date) unknown) (unknown) (no (unknown) (unknown) duloxetine 60 mg (units (unknown) date) capsule,delayed 1 unknown) cap PO DAILY 01/10/22 04/30/22 (unknown) (no (unknown) (unknown) duloxetine 60 mg (units (unknown) date) capsule,delayed unknown) release(DR/EC) (unknown) (no (unknown) (unknown) erythema (units (unkno wn) date) surrounding unknown) (unknown) (no (unknown) (unknown) fevers, (units (unkno wn) date) abdominal pain, unknown) significant chest pain, headaches, slurred speech, (unknown) (no (unknown) (unknown) fluticasone 250 (units (unknown) date) mcg-salmeterol 50 unknown) 1 ea inhalation BID 01/10/22 04/30/22 (unknown) (no (unknown) (unknown) fluticasone (units (un known) date) propion-salmetero unknown) l [[facility] In[facility]] 250-50 mcg/dose blister with (unknown) (no (unknown) (unknown) fluticasone (units (un known) date) propionate 50 1 unknown) ea intranasal BID 01/10/22 04/30/22 (unknown) (no (unknown) (unknown) fluticasone (units (un known) date) propionate 50 unknown) mcg/actuation spray,suspension (unknown) (no (unknown) (unknown) history of (units (unk nown) date) candidal sepsis. unknown) Also has a history of seizures, opiate addiction, (unknown) (no (unknown) (unknown) household (units (unkn own) date) members: none unknown) (unknown) (no (unknown) (unknown) hydroxyzine HCl (units (unknown) date) 50 mg tablet 2 unknown) tab PO TID 01/10/22 04/30/22 (unknown) (no (unknown) (unknown) hydroxyzine HCl (units (unknown) date) 50 mg tablet unknown) (unknown) (no (unknown) (unknown) icterus. No (units (un known) date) injection or unknown) drainage. (unknown) (no (unknown) (unknown) infusion of (units (un known) date) fluconazole with unknown) plans to get the PICC in the next day.. Has a (unknown) (no (unknown) (unknown) inhalation (units (unk nown) date) ([facility] In[facility]) unknown) (unknown) (no (unknown) (unknown) lamotrigine 200 (units (unknown) date) mg tablet 2 tab unknown) PO BEDTIME 01/10/22 04/30/22 (unknown) (no (unknown) (unknown) lamotrigine 200 (units (unknown) date) mg tablet unknown) (unknown) (no (unknown) (unknown) lidocaine (units (unkn own) date) AdvReac unknown) Intermediate Verified 09/25/22 11:49 (unknown) (no (unknown) (unknown) mcg/actuation (units ( unknown) date) nasal unknown) (unknown) (no (unknown) (unknown) mcg/dose blistr (units (unknown) date) powdr for unknown) (unknown) (no (unknown) (unknown) meloxicam 15 mg (units (unknown) date) tablet 1 tab unknown) DAILY 01/10/22 04/30/22 (unknown) (no (unknown) (unknown) meloxicam 15 mg (units (unknown) date) tablet unknown) (unknown) (no (unknown) (unknown) mg tablet (units (unkn own) date) unknown) (unknown) (no (unknown) (unknown) not recall any (units (unknown) date) specific event unknown) that caused the worsening shortness of breath. (unknown) (no (unknown) (unknown) over the mid (units (u nknown) date) SVC. unknown) (unknown) (no (unknown) (unknown) pain with (units (unkn own) date) palpation of the unknown) chest (unknown) (no (unknown) (unknown) projecting (units (unk nown) date) unknown) (unknown) (no (unknown) (unknown) rales, or (units (unkn own) date) rhonchi. unknown) (unknown) (no (unknown) (unknown) release (units (unkno wn) date) unknown) (unknown) (no (unknown) (unknown) seizures, (units (unkn own) date) incoordination. unknown) (unknown) (no (unknown) (unknown) significant (units (un known) date) relief causing unknown) her come in. She denies any nausea, vomiting, (unknown) (no (unknown) (unknown) spray,suspension (units (unknown) date) unknown) (unknown) (no (unknown) (unknown) tonsillar (units (unkn own) date) hypertrophy or unknown) exudate. Airway patent. (unknown) (no (unknown) (unknown) tox [Urine Drug (units (unknown) date) Screen, Rapid] unknown) Stat (unknown) (no (unknown) (unknown) unremarkable.? (units (unknown) date) unknown) (unknown) (no (unknown) (unknown) vancomycin (units (unk nown) date) AdvReac Verified unknown) 09/25/22 11:49 (unknown) (no (unknown) (unknown) weakness, or any (units (unknown) date) other concerning unknown) signs or symptoms. (unknown) (no (unknown) (unknown) within the left (units (unknown) date) upper lobe. unknown) (unknown) (no (unknown) (unknown) worsening acute (units (unknown) date) on chronic unknown) shortness of breath onset 2 days ago. Patient does Result panel 228 (unknown) (no (unknown) (unknown) (no value) (units (unk nown) date) unknown) (unknown) (no (unknown) (unknown) * Clinical (units (unk nown) date) Decision unknown) Rules/Scores evaluated: [ ] (unknown) (no (unknown) (unknown) * Independent (units ( unknown) date) discussions with: unknown) [ ] (unknown) (no (unknown) (unknown) * My imgaing (units (u nknown) date) interpretation: [ unknown) ] (unknown) (no (unknown) (unknown) * My lab (units (unkno wn) date) interpretation: [ unknown) ] (unknown) (no (unknown) (unknown) * Prior records (units (unknown) date) reviewed: Patient unknown) was last seen here 4 months ago for an IV (unknown) (no (unknown) (unknown) * differential (units (unknown) date) diagnosis unknown) includes but not limited to [ ] (unknown) (no (unknown) (unknown) 09/25/22 (units (unkno wn) date) 09/25/22 09/25/22 unknown) Range/Units (unknown) (no (unknown) (unknown) 09/25/22 11:54 (units (unknown) date) unknown) (unknown) (no (unknown) (unknown) 09/25/22 11:55 (units (unknown) date) unknown) (unknown) (no (unknown) (unknown) 09/25/22 12:12 (units (unknown) date) unknown) (unknown) (no (unknown) (unknown) 09/25/22 12:14 (units (unknown) date) unknown) (unknown) (no (unknown) (unknown) 09/25/22 12:28 (units (unknown) date) unknown) (unknown) (no (unknown) (unknown) 09/25/22 12:36 (units (unknown) date) unknown) (unknown) (no (unknown) (unknown) 09/25/22 12:44 (units (unknown) date) unknown) (unknown) (no (unknown) (unknown) 09/25/22 13:11 (units (unknown) date) unknown) (unknown) (no (unknown) (unknown) 09/25/22 (units (unkno wn) date) unknown) (unknown) (no (unknown) (unknown) 1 cap PO DAILY (units (unknown) date) unknown) (unknown) (no (unknown) (unknown) 1 ea INHALATION (units (unknown) date) BID unknown) (unknown) (no (unknown) (unknown) 1 ea INTRANASAL (units (unknown) date) BID unknown) (unknown) (no (unknown) (unknown) 1 tab 1XD (units (unkn own) date) unknown) (unknown) (no (unknown) (unknown) 1 tab DAILY (units (un known) date) unknown) (unknown) (no (unknown) (unknown) 1 tab PO BEDTIME (units (unknown) date) unknown) (unknown) (no (unknown) (unknown) 1 tab PO QID (units (u nknown) date) unknown) (unknown) (no (unknown) (unknown) 11:49 09/25/22 (units (unknown) date) unknown) (unknown) (no (unknown) (unknown) 11:55 12:28 (units (un known) date) 12:28 unknown) (unknown) (no (unknown) (unknown) 12 point review (units (unknown) date) of systems is unknown) negative except for those stated above (unknown) (no (unknown) (unknown) [address] [place] [address] (units (unknown) date) unknown) (unknown) (no (unknown) (unknown) 12:12 09/25/22 (units (unknown) date) unknown) (unknown) (no (unknown) (unknown) 12:13 09/25/22 (units (unknown) date) unknown) (unknown) (no (unknown) (unknown) 12:13 (units (unkno wn) date) unknown) (unknown) (no (unknown) (unknown) 12:15 09/25/22 (units (unknown) date) unknown) (unknown) (no (unknown) (unknown) 12:27 09/25/22 (units (unknown) date) unknown) (unknown) (no (unknown) (unknown) 12:27 (units (unkno wn) date) unknown) (unknown) (no (unknown) (unknown) 12:28 12:28 (units (un known) date) 12:44 unknown) (unknown) (no (unknown) (unknown) 12:30 09/25/22 (units (unknown) date) unknown) (unknown) (no (unknown) (unknown) 12:31 09/25/22 (units (unknown) date) unknown) (unknown) (no (unknown) (unknown) 12:31 (units (unkno wn) date) unknown) (unknown) (no (unknown) (unknown) 12:45 09/25/22 (units (unknown) date) unknown) (unknown) (no (unknown) (unknown) 12:45 (units (unkno wn) date) unknown) (unknown) (no (unknown) (unknown) 12:50 09/25/22 (units (unknown) date) unknown) (unknown) (no (unknown) (unknown) 13:00 09/25/22 (units (unknown) date) unknown) (unknown) (no (unknown) (unknown) 13:00 (units (unkno wn) date) unknown) (unknown) (no (unknown) (unknown) 13:10 09/25/22 (units (unknown) date) unknown) (unknown) (no (unknown) (unknown) 13:15 09/25/22 (units (unknown) date) unknown) (unknown) (no (unknown) (unknown) 13:15 (units (unkno wn) date) unknown) (unknown) (no (unknown) (unknown) 13:20 09/25/22 (units (unknown) date) unknown) (unknown) (no (unknown) (unknown) 13:20 (units (unkno wn) date) unknown) (unknown) (no (unknown) (unknown) 13:25 09/25/22 (units (unknown) date) unknown) (unknown) (no (unknown) (unknown) 13:30 09/25/22 (units (unknown) date) unknown) (unknown) (no (unknown) (unknown) 13:30 (units (unkno wn) date) unknown) (unknown) (no (unknown) (unknown) 13:35 09/25/22 (units (unknown) date) unknown) (unknown) (no (unknown) (unknown) 13:35 (units (unkno wn) date) unknown) (unknown) (no (unknown) (unknown) 13:40 09/25/22 (units (unknown) date) unknown) (unknown) (no (unknown) (unknown) 13:40 (units (unkno wn) date) unknown) (unknown) (no (unknown) (unknown) 2 puff (units (unkno wn) date) INHALATION Q4HR unknown) PRN (Reason: Shortness Of Breath) (unknown) (no (unknown) (unknown) 2 tab PO BEDTIME (units (unknown) date) unknown) (unknown) (no (unknown) (unknown) 2 tab PO TID (units (u nknown) date) unknown) (unknown) (no (unknown) (unknown) ? (units (unkno wn) date) unknown) (unknown) (no (unknown) (unknown) ALT (<35) IU/L (units (unknown) date) unknown) (unknown) (no (unknown) (unknown) ALT 25 (<35) (units (u nknown) date) IU/L unknown) (unknown) (no (unknown) (unknown) AST (14-36) IU/L (units (unknown) date) unknown) (unknown) (no (unknown) (unknown) AST 44 H (14-36) (units (unknown) date) IU/L unknown) (unknown) (no (unknown) (unknown) Accession (units (unkn own) date) Number: unknown) [id number] ?? (unknown) (no (unknown) (unknown) Acct:[id number] (units (unknown) date) unknown) (unknown) (no (unknown) (unknown) Addiction, opium (units (unknown) date) unknown) (unknown) (no (unknown) (unknown) Age/Sex: 52 / F (units (unknown) date) unknown) (unknown) (no (unknown) (unknown) Albumin (units (unkno wn) date) (3.5-5.0) g/dL unknown) (unknown) (no (unknown) (unknown) Albumin 3.0 L (units ( unknown) date) (3.5-5.0) g/dL unknown) (unknown) (no (unknown) (unknown) Albumin/Globulin (units (unknown) date) Ratio (1.0-2.8) unknown) (unknown) (no (unknown) (unknown) Albumin/Globulin (units (unknown) date) Ratio 0.8 L unknown) (1.0-2.8) (unknown) (no (unknown) (unknown) Albuterol/Ipratr (units (unknown) date) opium unknown) (Albuterol/Ipratr opium 3 Ml Ampul) 6 ml INH NOW ONE (unknown) (no (unknown) (unknown) Alkaline (units (unkno wn) date) Phosphatase unknown) (38-126) U/L (unknown) (no (unknown) (unknown) Alkaline (units (unkno wn) date) Phosphatase 203 H unknown) (38-126) U/L (unknown) (no (unknown) (unknown) Allergies (units (unkn own) date) unknown) (unknown) (no (unknown) (unknown) Allergy/AdvReac (units (unknown) date) Type Severity unknown) Reaction Status Date / Time (unknown) (no (unknown) (unknown) [place], [place] (units ( unknown) date) [address] unknown) (unknown) (no (unknown) (unknown) Anisocytosis 1+ (units (unknown) date) H unknown) (unknown) (no (unknown) (unknown) Anisocytosis (units (u nknown) date) unknown) (unknown) (no (unknown) (unknown) Approved by: (units (u nknown) date) kishor Telles M.D. on 09/25/2022 at 13:13 ? (unknown) (no (unknown) (unknown) BACK: Nontender (units (unknown) date) without deformity unknown) or crepitance. No flank tenderness. (unknown) (no (unknown) (unknown) BUN (7-17) mg/dL (units (unknown) date) unknown) (unknown) (no (unknown) (unknown) BUN 44 H (7-17) (units (unknown) date) mg/dL unknown) (unknown) (no (unknown) (unknown) BUN/Creatinine (units (unknown) date) Ratio (6-22) unknown) (unknown) (no (unknown) (unknown) BUN/Creatinine (units (unknown) date) Ratio 49.4 H unknown) (6-22) (unknown) (no (unknown) (unknown) Band Neutrophils (units (unknown) date) % (3-7) % unknown) (unknown) (no (unknown) (unknown) Band Neutrophils (units (unknown) date) % 28.0 H (3-7) % unknown) (unknown) (no (unknown) (unknown) Baso # (Auto) (units ( unknown) date) Not Reportable unknown) (unknown) (no (unknown) (unknown) Baso # (Auto) (units ( unknown) date) unknown) (unknown) (no (unknown) (unknown) Baso % (Auto) (units ( unknown) date) Not Reportable unknown) (unknown) (no (unknown) (unknown) Baso % (Auto) (units ( unknown) date) unknown) (unknown) (no (unknown) (unknown) Basophils % (units (un known) date) (Manual) (0-1) % unknown) (unknown) (no (unknown) (unknown) Basophils % (units (un known) date) (Manual) 1.0 unknown) (0-1) % (unknown) (no (unknown) (unknown) Blood Culture (units ( unknown) date) Stat unknown) (unknown) (no (unknown) (unknown) Blood Pressure (units (unknown) date) 82/51 L 83/52 L unknown) (unknown) (no (unknown) (unknown) Blood Pressure (units (unknown) date) 83/50 L unknown) (unknown) (no (unknown) (unknown) Blood Pressure (units (unknown) date) 83/52 L unknown) (unknown) (no (unknown) (unknown) Blood Pressure (units (unknown) date) 84/53 L unknown) (unknown) (no (unknown) (unknown) Blood Pressure (units (unknown) date) 87/52 L unknown) (unknown) (no (unknown) (unknown) Blood Pressure (units (unknown) date) 88/53 L unknown) (unknown) (no (unknown) (unknown) Blood Pressure (units (unknown) date) 91/50 L 90/52 L unknown) (unknown) (no (unknown) (unknown) Blood Pressure (units (unknown) date) 94/54 L 99/52 L unknown) (unknown) (no (unknown) (unknown) Blood Pressure (units (unknown) date) 96/60 09/25/22 unknown) 11:49 (unknown) (no (unknown) (unknown) Blood Pressure (units (unknown) date) 96/60 85/52 L unknown) (unknown) (no (unknown) (unknown) Blood Pressure (units (unknown) date) unknown) (unknown) (no (unknown) (unknown) Bones and chest (units (unknown) date) wall:? No unknown) suspicious bony lesions.? Overlying soft tissues (unknown) (no (unknown) (unknown) CARDIOVASCULAR: (units (unknown) date) Denies chest unknown) pain, palpitations, orthopnea, edema, (unknown) (no (unknown) (unknown) CARDIOVASCULAR: (units (unknown) date) Regular rate and unknown) rhythm without murmurs, gallops, or rubs. Mild (unknown) (no (unknown) (unknown) COMPARISON:? (units (u nknown) date) [facility], unknown) CR, XR CHEST 2V, 06/04/2022, 12:38. (unknown) (no (unknown) (unknown) CT angio chest (units (unknown) date) PE protocol Stat unknown) (unknown) (no (unknown) (unknown) Cachexia (units (unkno wn) date) unknown) (unknown) (no (unknown) (unknown) Calcium (units (unkno wn) date) (8.4-10.2) mg/dL unknown) (unknown) (no (unknown) (unknown) Calcium 8.4 (units (un known) date) (8.4-10.2) mg/dL unknown) (unknown) (no (unknown) (unknown) Carbon Dioxide (units (unknown) date) (22-32) mmol/L unknown) (unknown) (no (unknown) (unknown) Carbon Dioxide (units (unknown) date) 22 (22-32) mmol/L unknown) (unknown) (no (unknown) (unknown) Chest x-ray: (units (u nknown) date) unknown) (unknown) (no (unknown) (unknown) Chief Complaint: (units (unknown) date) Upper Respiratory unknown) Symptoms (unknown) (no (unknown) (unknown) Chloride (units (unkno wn) date) (98-107) mmol/L unknown) (unknown) (no (unknown) (unknown) Chloride 98 (units (un known) date) (98-107) mmol/L unknown) (unknown) (no (unknown) (unknown) Complete Blood (units (unknown) date) Count AUTO DIFF unknown) Stat (unknown) (no (unknown) (unknown) Comprehensive (units ( unknown) date) Metabolic Panel unknown) Stat (unknown) (no (unknown) (unknown) Course (units (unkno wn) date) unknown) (unknown) (no (unknown) (unknown) Covid-19 + FLU (units (unknown) date) A/B + RSV - PCR unknown) Stat (unknown) (no (unknown) (unknown) Creatinine (units (unk nown) date) (0.52-1.04) mg/dL unknown) (unknown) (no (unknown) (unknown) Creatinine 0.89 (units (unknown) date) (0.52-1.04) mg/dL unknown) (unknown) (no (unknown) (unknown) D Dimer Stat (units (u nknown) date) unknown) (unknown) (no (unknown) (unknown) D-Dimer (<500) (units (unknown) date) ng/ml unknown) (unknown) (no (unknown) (unknown) D-Dimer 3576 H (units (unknown) date) (<500) ng/ml unknown) (unknown) (no (unknown) (unknown) : 1970 (units (unknown) date) Acct:[id number] unknown) (unknown) (no (unknown) (unknown) : 1970 (units (unknown) date) unknown) (unknown) (no (unknown) (unknown) Date of Service: (units (unknown) date) 09/25/22 unknown) (unknown) (no (unknown) (unknown) Departure (units (unkn own) date) unknown) (unknown) (no (unknown) (unknown) Dictated by: (units (u nknown) date) kishor Telles M.D. on 09/25/2022 at 13:12 ? ? (unknown) (no (unknown) (unknown) Discharge Plan (units (unknown) date) unknown) (unknown) (no (unknown) (unknown) Discontinued (units (u nknown) date) Medications unknown) (unknown) (no (unknown) (unknown) Disposition: [ ] (units (unknown) date) unknown) (unknown) (no (unknown) (unknown) Documented By: (units (unknown) date) JZF unknown) (unknown) (no (unknown) (unknown) Documented By: (units (unknown) date) NR unknown) (unknown) (no (unknown) (unknown) ED Course: [ ] (units (unknown) date) unknown) (unknown) (no (unknown) (unknown) ED Orders (units (unkn own) date) unknown) (unknown) (no (unknown) (unknown) EKG-12 Lead Stat (units (unknown) date) unknown) (unknown) (no (unknown) (unknown) ENT: Nose (units (unkn own) date) without bleeding, unknown) purulent drainage. Throat without erythema, (unknown) (no (unknown) (unknown) ER Physician: (units ( unknown) date) Bethel Flynn P.A-C unknown) (unknown) (no (unknown) (unknown) EXTREMITIES: No (units (unknown) date) edema or joint unknown) tenderness. (unknown) (no (unknown) (unknown) EYES: Pupils (units (u nknown) date) equal round and unknown) reactive. Extraocular motions intact. No scleral (unknown) (no (unknown) (unknown) Emergency Report (units (unknown) date) unknown) (unknown) (no (unknown) (unknown) Eos % (Auto) Not (units (unknown) date) Reportable unknown) (unknown) (no (unknown) (unknown) Eos % (Auto) (units (u nknown) date) unknown) (unknown) (no (unknown) (unknown) Estimated GFR > (units (unknown) date) 60 (>60) mL/min unknown) (unknown) (no (unknown) (unknown) Estimated GFR (units ( unknown) date) (>60) mL/min unknown) (unknown) (no (unknown) (unknown) Exam Narrative: (units (unknown) date) unknown) (unknown) (no (unknown) (unknown) Exam (units (unkno wn) date) unknown) (unknown) (no (unknown) (unknown) FINDINGS:? (units (unk nown) date) unknown) (unknown) (no (unknown) (unknown) GASTROINTESTINAL (units (unknown) date) : Abdomen soft, unknown) non-tender, nondistended. (unknown) (no (unknown) (unknown) GASTROINTESTINAL (units (unknown) date) : Denies nausea, unknown) vomiting, abdominal pain, diarrhea, (unknown) (no (unknown) (unknown) GENERAL: Denies (units (unknown) date) chills, fatigue, unknown) malaise, fever, sweats. (unknown) (no (unknown) (unknown) GENERAL: (units (o wn) date) Well-developed unknown) patient, in mild distress. (unknown) (no (unknown) (unknown) : Denies (units (unk n) date) dysuria, unknown) frequency, incontinence, hematuria, urinary retention. (unknown) (no (unknown) (unknown) Gastroparesis (units ( unknown) date) unknown) (unknown) (no (unknown) (unknown) General (units (unkno wn) date) unknown) (unknown) (no (unknown) (unknown) Globulin (units (unkno wn) date) (1.7-4.1) g/dL unknown) (unknown) (no (unknown) (unknown) Globulin 4.0 (units (u nknown) date) (1.7-4.1) g/dL unknown) (unknown) (no (unknown) (unknown) Glucose (70-100) (units (unknown) date) mg/dL unknown) (unknown) (no (unknown) (unknown) Glucose 117 H (units ( unknown) date) (70-100) mg/dL unknown) (unknown) (no (unknown) (unknown) HEAD: (units (o wn) date) Atraumatic. unknown) Normocephalic. (unknown) (no (unknown) (unknown) HEENT: Denies (units ( unknown) date) sinus pain, ear unknown) pain, sore throat, difficulty swallowing, (unknown) (no (unknown) (unknown) HPI - URI/Sore (units (unknown) date) Throat unknown) (unknown) (no (unknown) (unknown) HPI Narrative: (units (unknown) date) unknown) (unknown) (no (unknown) (unknown) Hct (36-46) % (units ( unknown) date) unknown) (unknown) (no (unknown) (unknown) Hct 27.7 L (units (unk nown) date) (36-46) % unknown) (unknown) (no (unknown) (unknown) Hgb (12.0-16.0) (units (unknown) date) g/dL unknown) (unknown) (no (unknown) (unknown) Hgb 8.7 L (units (unkn own) date) (12.0-16.0) g/dL unknown) (unknown) (no (unknown) (unknown) History of (units (unk nown) date) Present Illness unknown) (unknown) (no (unknown) (unknown) History of (units (unk nown) date) gastrectomy unknown) (unknown) (no (unknown) (unknown) Home Medications (units (unknown) date) unknown) (unknown) (no (unknown) (unknown) IMPRESSION:? (units (u nknown) date) Patchy bilateral unknown) opacities suspicious for pneumonia. (unknown) (no (unknown) (unknown) INDICATIONS:? (units ( unknown) date) Shortness of unknown) breath (unknown) (no (unknown) (unknown) INHALE 1 PUFF BY (units (unknown) date) MOUTH TWICE unknown) DAILY. RINSE MOUTH AFTER USE (unknown) (no (unknown) (unknown) INR (0.9-1.3) (units ( unknown) date) unknown) (unknown) (no (unknown) (unknown) INR 1.6 H (units (unkn own) date) (0.9-1.3) unknown) (unknown) (no (unknown) (unknown) Imaging Data (units (u nknown) date) unknown) (unknown) (no (unknown) (unknown) Influenza A (units (un known) date) (RT-PCR) unknown) (NEGATIVE) (unknown) (no (unknown) (unknown) Influenza A (units (un known) date) (RT-PCR) Flu a unknown) negative (NEGATIVE) (unknown) (no (unknown) (unknown) Influenza B (units (un known) date) (RT-PCR) unknown) (NEGATIVE) (unknown) (no (unknown) (unknown) Influenza B (units (un known) date) (RT-PCR) Flu b unknown) negative (NEGATIVE) (unknown) (no (unknown) (unknown) Initial Vital (units ( unknown) date) Signs unknown) (unknown) (no (unknown) (unknown) Initial Vital (units ( unknown) date) Signs: unknown) (unknown) (no (unknown) (unknown) [facility] (units (unknown) date) [address] unknown) [place] [address] (unknown) (no (unknown) (unknown) [facility] (units (unknown) date) unknown) (unknown) (no (unknown) (unknown) Lab Data (units (unkno wn) date) unknown) (unknown) (no (unknown) (unknown) Lab Results (units (un known) date) unknown) (unknown) (no (unknown) (unknown) Labs: (units (unkno wn) date) unknown) (unknown) (no (unknown) (unknown) Lactate (units (unkno wn) date) (0.7-2.1) mmol/L unknown) (unknown) (no (unknown) (unknown) Lactate (Lactic (units (unknown) date) Acid) Stat unknown) (unknown) (no (unknown) (unknown) Lactate 2.6 H (units ( unknown) date) (0.7-2.1) mmol/L unknown) (unknown) (no (unknown) (unknown) Last Admin: (units (un known) date) 09/25/22 12:49 unknown) Dose: 6 ml (unknown) (no (unknown) (unknown) Last Admin: (units (un known) date) 09/25/22 13:19 unknown) Dose: 1,000 mls/hr (unknown) (no (unknown) (unknown) Loc: ED (units (unkno wn) date) unknown) (unknown) (no (unknown) (unknown) Lungs and (units (unkn own) date) pleura:? Patchy unknown) right middle and lower lobe opacities and to a lesser (unknown) (no (unknown) (unknown) Lymph # (Auto) (units (unknown) date) Not Reportable unknown) (unknown) (no (unknown) (unknown) Lymph # (Auto) (units (unknown) date) unknown) (unknown) (no (unknown) (unknown) Lymph % (Auto) (units (unknown) date) Not Reportable unknown) (unknown) (no (unknown) (unknown) Lymph % (Auto) (units (unknown) date) unknown) (unknown) (no (unknown) (unknown) Lymphocytes % (units ( unknown) date) (Manual) (25-45) unknown) % (unknown) (no (unknown) (unknown) Lymphocytes % (units ( unknown) date) (Manual) 9.0 L unknown) (25-45) % (unknown) (no (unknown) (unknown) [id number] (units (unk nown) date) unknown) (unknown) (no (unknown) (unknown) MCH (26-34) PG (units (unknown) date) unknown) (unknown) (no (unknown) (unknown) MCH 21.4 L (units (unk nown) date) (26-34) PG unknown) (unknown) (no (unknown) (unknown) MCHC (30-36) % (units (unknown) date) unknown) (unknown) (no (unknown) (unknown) MCHC 31.4 (units (unkn own) date) (30-36) % unknown) (unknown) (no (unknown) (unknown) MCV (80-100) fL (units (unknown) date) unknown) (unknown) (no (unknown) (unknown) MCV 68.4 L (units (unk nown) date) (80-100) fL unknown) (unknown) (no (unknown) (unknown) MDM - URI/Sore (units (unknown) date) Throat unknown) (unknown) (no (unknown) (unknown) MDM Narrative (units ( unknown) date) unknown) (unknown) (no (unknown) (unknown) MDM (units (unkno wn) date) unknown) (unknown) (no (unknown) (unknown) MR#: [id number] (units (unknown) date) unknown) (unknown) (no (unknown) (unknown) MUSCULOSKELETAL: (units (unknown) date) denies weakness, unknown) joint pain, or bony pain (unknown) (no (unknown) (unknown) Measure peak (units (u nknown) date) expiratory flow unknown) ONCE (unknown) (no (unknown) (unknown) Mediastinum:? (units ( unknown) date) Mediastinal unknown) contours appear normal.? Heart size is normal.? (unknown) (no (unknown) (unknown) Medical History (units (unknown) date) (Reviewed unknown) 06/09/22 @ 13:35 by Madie Polo MD) (unknown) (no (unknown) (unknown) Medical decision (units (unknown) date) making narrative: unknown) (unknown) (no (unknown) (unknown) Medication (units (unk nown) date) Instructions unknown) Recorded Confirmed (unknown) (no (unknown) (unknown) Metamyelocytes % (units (unknown) date) (-0) % unknown) (unknown) (no (unknown) (unknown) Metamyelocytes % (units (unknown) date) 3.0 H (-0) % unknown) (unknown) (no (unknown) (unknown) Microcytosis 2+ (units (unknown) date) H unknown) (unknown) (no (unknown) (unknown) Microcytosis (units (u nknown) date) unknown) (unknown) (no (unknown) (unknown) Mode of arrival: (units (unknown) date) Wheelchair unknown) (unknown) (no (unknown) (unknown) Hyde # (Auto) (units ( unknown) date) Not Reportable unknown) (unknown) (no (unknown) (unknown) Hyde # (Auto) (units ( unknown) date) unknown) (unknown) (no (unknown) (unknown) Hyde % (Auto) (units ( unknown) date) Not Reportable unknown) (unknown) (no (unknown) (unknown) Hyde % (Auto) (units ( unknown) date) unknown) (unknown) (no (unknown) (unknown) Monocytes % (units (un known) date) (Manual) (2-11) % unknown) (unknown) (no (unknown) (unknown) Monocytes % (units (un known) date) (Manual) 8.0 unknown) (2-11) % (unknown) (no (unknown) (unknown) NECK: Trachea (units ( unknown) date) midline. Non unknown) tender (unknown) (no (unknown) (unknown) NEURO: AOx3. (units (u nknown) date) unknown) (unknown) (no (unknown) (unknown) NEUROLOGIC: (units (un known) date) Denies weakness, unknown) headache, numbness, change in speech, confusion, (unknown) (no (unknown) (unknown) NT-Pro-B (units (unkno wn) date) Natriuret Pep unknown) (<125) pg/mL (unknown) (no (unknown) (unknown) NT-Pro-B (units (unkno wn) date) Natriuret Pep unknown) 7310 H (<125) pg/mL (unknown) (no (unknown) (unknown) NT-proBNP (units (unkn own) date) (BNP-Adult 18+) unknown) Stat (unknown) (no (unknown) (unknown) Narrative (units (unkn own) date) unknown) (unknown) (no (unknown) (unknown) Narrative: (units (unk nown) date) unknown) (unknown) (no (unknown) (unknown) Neut % (Auto) (units ( unknown) date) Not Reportable unknown) (unknown) (no (unknown) (unknown) Neut % (Auto) (units ( unknown) date) unknown) (unknown) (no (unknown) (unknown) Neutrophils # (units ( unknown) date) (Manual) unknown) ([id number]) /uL (unknown) (no (unknown) (unknown) Neutrophils # (units ( unknown) date) (Manual) 82564 H unknown) ([id number]) /uL (unknown) (no (unknown) (unknown) No Action (units (unkn own) date) unknown) (unknown) (no (unknown) (unknown) On parenteral (units ( unknown) date) nutrition unknown) (unknown) (no (unknown) (unknown) Ordered: (units (unkno wn) date) unknown) (unknown) (no (unknown) (unknown) Ordering (units (unkno wn) date) Provider: unknown) Malick Gilmore MD (unknown) (no (unknown) (unknown) Orders (units (unkno wn) date) unknown) (unknown) (no (unknown) (unknown) Oxygen Delivery (units (unknown) date) Method Room Air unknown) 09/25/22 11:49 (unknown) (no (unknown) (unknown) Oxygen Delivery (units (unknown) date) Method Room Air unknown) Room Air (unknown) (no (unknown) (unknown) Oxygen Delivery (units (unknown) date) Method Room Air unknown) (unknown) (no (unknown) (unknown) Oxygen Delivery (units (unknown) date) Method unknown) (unknown) (no (unknown) (unknown) PROCEDURE:? XR (units (unknown) date) CHEST 1V unknown) (unknown) (no (unknown) (unknown) PSYCHIATRIC: No (units (unknown) date) concerning unknown) psychosocial issues. (unknown) (no (unknown) (unknown) PT (10.1-12.7) (units (unknown) date) SECONDS unknown) (unknown) (no (unknown) (unknown) PT 18.4 H (units (unkn own) date) (10.1-12.7) unknown) SECONDS (unknown) (no (unknown) (unknown) Patient (units (unkno wn) date) Comments: unknown) (unknown) (no (unknown) (unknown) Patient History (units (unknown) date) unknown) (unknown) (no (unknown) (unknown) Patient: (units (unkno wn) date) Reg Quintanilla unknown) F MR#: (unknown) (no (unknown) (unknown) Patient: (units (unkno wn) date) Reg Quintanilla unknown) F (unknown) (no (unknown) (unknown) Penicillins (units (un known) date) Allergy Severe unknown) Anaphylaxis Verified 09/25/22 11:49 (unknown) (no (unknown) (unknown) Plt Count (units (unkn own) date) (150-400) X103/uL unknown) (unknown) (no (unknown) (unknown) Plt Count 301 (units ( unknown) date) (150-400) X103/uL unknown) (unknown) (no (unknown) (unknown) Potassium (units (unkn own) date) (3.4-5.1) mmol/L unknown) (unknown) (no (unknown) (unknown) Potassium 3.8 (units ( unknown) date) (3.4-5.1) mmol/L unknown) (unknown) (no (unknown) (unknown) Prescriptions: (units (unknown) date) unknown) (unknown) (no (unknown) (unknown) Procedure: XR (units ( unknown) date) chest 1V unknown) (unknown) (no (unknown) (unknown) Prothrombin Time (units (unknown) date) INR Stat unknown) (unknown) (no (unknown) (unknown) Pulse Oximetry (units (unknown) date) 97 99 unknown) (unknown) (no (unknown) (unknown) Pulse Oximetry (units (unknown) date) 98 09/25/22 11:49 unknown) (unknown) (no (unknown) (unknown) Pulse Oximetry (units (unknown) date) 98 97 unknown) (unknown) (no (unknown) (unknown) Pulse Oximetry (units (unknown) date) 98 98 unknown) (unknown) (no (unknown) (unknown) Pulse Oximetry (units (unknown) date) 98 99 98 unknown) (unknown) (no (unknown) (unknown) Pulse Oximetry (units (unknown) date) 98 unknown) (unknown) (no (unknown) (unknown) Pulse Oximetry (units (unknown) date) 99 98 unknown) (unknown) (no (unknown) (unknown) Pulse Oximetry (units (unknown) date) 99 unknown) (unknown) (no (unknown) (unknown) Pulse Oximetry (units (unknown) date) unknown) (unknown) (no (unknown) (unknown) Pulse Rate 65 69 (units (unknown) date) unknown) (unknown) (no (unknown) (unknown) Pulse Rate 66 66 (units (unknown) date) unknown) (unknown) (no (unknown) (unknown) Pulse Rate 67 (units ( unknown) date) unknown) (unknown) (no (unknown) (unknown) Pulse Rate 69 (units ( unknown) date) 09/25/22 11:49 unknown) (unknown) (no (unknown) (unknown) Pulse Rate 69 68 (units (unknown) date) 68 unknown) (unknown) (no (unknown) (unknown) Pulse Rate 69 69 (units (unknown) date) unknown) (unknown) (no (unknown) (unknown) Pulse Rate 69 71 (units (unknown) date) unknown) (unknown) (no (unknown) (unknown) Pulse Rate 69 (units ( unknown) date) unknown) (unknown) (no (unknown) (unknown) Pulse Rate 75 (units ( unknown) date) unknown) (unknown) (no (unknown) (unknown) Pulse Rate 76 76 (units (unknown) date) unknown) (unknown) (no (unknown) (unknown) RBC (4.0-5.2) (units ( unknown) date) X106/uL unknown) (unknown) (no (unknown) (unknown) RBC 4.05 (units (unkno wn) date) (4.0-5.2) X106/uL unknown) (unknown) (no (unknown) (unknown) RBC Morphology (units (unknown) date) See below unknown) (unknown) (no (unknown) (unknown) RBC Morphology (units (unknown) date) unknown) (unknown) (no (unknown) (unknown) RDW (11.6-14.8) (units (unknown) date) % unknown) (unknown) (no (unknown) (unknown) RDW 17.4 H (units (unk nown) date) (11.6-14.8) % unknown) (unknown) (no (unknown) (unknown) RESPIRATORY: (units (un known) date) Clear to unknown) auscultation. Breath sounds equal bilaterally. No wheezes, (unknown) (no (unknown) (unknown) RESPIRATORY: (units (u nknown) date) Reports shortness unknown) of breath (unknown) (no (unknown) (unknown) RSV (PCR) (units (unkn own) date) (Negative) unknown) (unknown) (no (unknown) (unknown) RSV (PCR) (units (unkn own) date) Negative unknown) (Negative) (unknown) (no (unknown) (unknown) RT Consult Eval (units (unknown) date) and Treat NOW unknown) (unknown) (no (unknown) (unknown) Radiologist's (units ( unknown) date) Impression: unknown) (unknown) (no (unknown) (unknown) Referrals: (units (unk nown) date) unknown) (unknown) (no (unknown) (unknown) Related Data (units (u nknown) date) unknown) (unknown) (no (unknown) (unknown) Respiratory Rate (units (unknown) date) 16 09/25/22 11:49 unknown) (unknown) (no (unknown) (unknown) Respiratory Rate (units (unknown) date) 16 unknown) (unknown) (no (unknown) (unknown) Respiratory Rate (units (unknown) date) 17 16 unknown) (unknown) (no (unknown) (unknown) Respiratory Rate (units (unknown) date) 18 unknown) (unknown) (no (unknown) (unknown) Respiratory Rate (units (unknown) date) 19 unknown) (unknown) (no (unknown) (unknown) Respiratory Rate (units (unknown) date) 20 26 H unknown) (unknown) (no (unknown) (unknown) Respiratory Rate (units (unknown) date) 23 18 unknown) (unknown) (no (unknown) (unknown) Respiratory Rate (units (unknown) date) 23 unknown) (unknown) (no (unknown) (unknown) Respiratory Rate (units (unknown) date) 27 H 25 H unknown) (unknown) (no (unknown) (unknown) Respiratory Rate (units (unknown) date) 31 H unknown) (unknown) (no (unknown) (unknown) Respiratory Rate (units (unknown) date) unknown) (unknown) (no (unknown) (unknown) Review of (units (unkn own) date) Systems unknown) (unknown) (no (unknown) (unknown) SARS-CoV-2 (PCR) (units (unknown) date) (Negative) unknown) (unknown) (no (unknown) (unknown) SARS-CoV-2 (PCR) (units (unknown) date) Negative unknown) (Negative) (unknown) (no (unknown) (unknown) SHAKE LIQUID AND (units (unknown) date) USE 1 SPRAY IN unknown) EACH NOSTRIL TWICE DAILY (unknown) (no (unknown) (unknown) SKIN: Denies (units (u nknown) date) rash, skin unknown) lesions, or other (unknown) (no (unknown) (unknown) SKIN: PICC line (units (unknown) date) in place to right unknown) upper chest, no evidence of any kind of (unknown) (no (unknown) (unknown) Seg Neutrophils (units (unknown) date) % (38-70) % unknown) (unknown) (no (unknown) (unknown) Seg Neutrophils (units (unknown) date) % 51.0 (38-70) % unknown) (unknown) (no (unknown) (unknown) Seizure disorder (units (unknown) date) unknown) (unknown) (no (unknown) (unknown) Shared Decision (units (unknown) date) Making: [ ] unknown) (unknown) (no (unknown) (unknown) She has some (units (u nknown) date) mild chest pain unknown) with deep inspiration. Patient has a history of (unknown) (no (unknown) (unknown) Signed By: (units (unk nown) date) unknown) (unknown) (no (unknown) (unknown) Signed (units (unkno wn) date) unknown) (unknown) (no (unknown) (unknown) Smoking Status: (units (unknown) date) Former smoker unknown) (unknown) (no (unknown) (unknown) Social (units (unkno wn) date) Considerations: [ unknown) ] (unknown) (no (unknown) (unknown) Social History (units (unknown) date) (Reviewed unknown) 06/09/22 @ 13:35 by Madie Polo MD) (unknown) (no (unknown) (unknown) Sodium (137-145) (units (unknown) date) mmol/L unknown) (unknown) (no (unknown) (unknown) Sodium 134 L (units (u nknown) date) (137-145) mmol/L unknown) (unknown) (no (unknown) (unknown) Sodium Chloride (units (unknown) date) (Normal Saline unknown) 0.9%) 1,000 mls @ 1,000 mls/hr IV BOLUS ONE (unknown) (no (unknown) (unknown) Source: patient (units (unknown) date) unknown) (unknown) (no (unknown) (unknown) Stated (units (unkno wn) date) Complaint: asthma unknown) is kicking butt, weak, needs iron (unknown) (no (unknown) (unknown) Stop: 09/25/22 (units (unknown) date) 12:44 unknown) (unknown) (no (unknown) (unknown) Stop: 09/25/22 (units (unknown) date) 13:53 unknown) (unknown) (no (unknown) (unknown) Substance Use (units ( unknown) date) Type: does not unknown) use (unknown) (no (unknown) (unknown) Surgical changes (units (unknown) date) and devices:? unknown) Right-sided catheter is present with distal tip (unknown) (no (unknown) (unknown) TAKE 1 CAPSULE (units (unknown) date) BY MOUTH EVERY unknown) DAY (unknown) (no (unknown) (unknown) TAKE 1 TABLET BY (units (unknown) date) MOUTH AT BEDTIME unknown) (unknown) (no (unknown) (unknown) TAKE 1 TABLET BY (units (unknown) date) MOUTH EVERY DAY unknown) (unknown) (no (unknown) (unknown) TAKE 1 TABLET BY (units (unknown) date) MOUTH FOUR TIMES unknown) DAILY NEEDED (unknown) (no (unknown) (unknown) TAKE 2 TABLETS (units (unknown) date) BY MOUTH AT unknown) BEDTIME (unknown) (no (unknown) (unknown) TAKE 2 TABLETS (units (unknown) date) BY MOUTH THREE unknown) TIMES DAILY NEEDED (unknown) (no (unknown) (unknown) TECHNIQUE:? One (units (unknown) date) view of the chest unknown) was acquired.? (unknown) (no (unknown) (unknown) Temperature 97.4 (units (unknown) date) F L 09/25/22 unknown) 11:49 (unknown) (no (unknown) (unknown) Temperature 97.4 (units (unknown) date) F L unknown) (unknown) (no (unknown) (unknown) Temperature (units (un known) date) unknown) (unknown) (no (unknown) (unknown) This is a (units (unkno wn) date) 52-year-old unknown) female presents to the emergency department complaining of (unknown) (no (unknown) (unknown) Time Seen by (units (u nknown) date) Provider: unknown) 09/25/22 12:33 (unknown) (no (unknown) (unknown) Total Bilirubin (units (unknown) date) (0.2-1.3) mg/dL unknown) (unknown) (no (unknown) (unknown) Total Bilirubin (units (unknown) date) 0.5 (0.2-1.3) unknown) mg/dL (unknown) (no (unknown) (unknown) Total Counted (units ( unknown) date) 100 unknown) (unknown) (no (unknown) (unknown) Total Counted (units ( unknown) date) unknown) (unknown) (no (unknown) (unknown) Total Protein (units ( unknown) date) (6.3-8.2) g/dL unknown) (unknown) (no (unknown) (unknown) Total Protein (units ( unknown) date) 7.0 (6.3-8.2) unknown) g/dL (unknown) (no (unknown) (unknown) Troponin I < (units (u nknown) date) 0.012 unknown) (0.01-0.034) ng/mL (unknown) (no (unknown) (unknown) Troponin I (units (unk nown) date) (0.01-0.034) unknown) ng/mL (unknown) (no (unknown) (unknown) Troponin I Stat (units (unknown) date) unknown) (unknown) (no (unknown) (unknown) USE 2 PUFFS BY (units (unknown) date) MOUTH EVERY 4-6 unknown) HOURS. (unknown) (no (unknown) (unknown) Urinalysis and (units (unknown) date) Microscopic Stat unknown) (unknown) (no (unknown) (unknown) Vital Signs - 8 (units (unknown) date) hr unknown) (unknown) (no (unknown) (unknown) Vital Signs (units (un known) date) unknown) (unknown) (no (unknown) (unknown) Vital signs: (units (u nknown) date) unknown) (unknown) (no (unknown) (unknown) WBC (4.5-11.0) (units (unknown) date) X103/uL unknown) (unknown) (no (unknown) (unknown) WBC 13.9 H (units (unk nown) date) (4.5-11.0) unknown) X103/uL (unknown) (no (unknown) (unknown) XR chest 1V Stat (units (unknown) date) unknown) (unknown) (no (unknown) (unknown) XRay Report (units (un known) date) unknown) (unknown) (no (unknown) (unknown) Shaneka García, (units (unknown) date) MD [Primary Care unknown) Provider] (unknown) (no (unknown) (unknown) [Embedded Image (units (unknown) date) Not Available] unknown) (unknown) (no (unknown) (unknown) aerosol inhaler (units (unknown) date) Shortness Of unknown) Breath (unknown) (no (unknown) (unknown) albuterol (units (unkn own) date) sulfate 90 unknown) mcg/actuation 2 puff inhalation Q4HR PRN 01/10/22 04/30/22 (unknown) (no (unknown) (unknown) albuterol (units (unkn own) date) sulfate 90 unknown) mcg/actuation HFA aerosol inhaler (unknown) (no (unknown) (unknown) alcohol intake: (units (unknown) date) never unknown) (unknown) (no (unknown) (unknown) and on TPN. (units (un known) date) Chronically unknown) anemic. (unknown) (no (unknown) (unknown) appear (units (unkno wn) date) unknown) (unknown) (no (unknown) (unknown) asthma and has (units (unknown) date) been using her unknown) albuterol inhaler as prescribed without (unknown) (no (unknown) (unknown) baclofen 10 mg (units (unknown) date) tablet 1 tab PO unknown) QID 01/10/22 04/30/22 (unknown) (no (unknown) (unknown) baclofen 10 mg (units (unknown) date) tablet unknown) (unknown) (no (unknown) (unknown) cetirizine 10 mg (units (unknown) date) tablet 1 tab PO unknown) BEDTIME 01/10/22 04/30/22 (unknown) (no (unknown) (unknown) cetirizine 10 mg (units (unknown) date) tablet unknown) (unknown) (no (unknown) (unknown) chlorhexidine (units ( unknown) date) Allergy unknown) Intermediate Rash Verified 09/25/22 11:49 (unknown) (no (unknown) (unknown) constipation, (units ( unknown) date) melena. unknown) (unknown) (no (unknown) (unknown) degree (units (unkno wn) date) unknown) (unknown) (no (unknown) (unknown) device (units (unkno wn) date) unknown) (unknown) (no (unknown) (unknown) dextroamphetamin (units (unknown) date) e-amphetamine 20 unknown) 1 tab 1XD 05/02/22 05/02/22 (unknown) (no (unknown) (unknown) dextroamphetamin (units (unknown) date) e-amphetamine 20 unknown) mg tablet (unknown) (no (unknown) (unknown) dizziness. (units (unk nown) date) unknown) (unknown) (no (unknown) (unknown) duloxetine 60 mg (units (unknown) date) capsule,delayed 1 unknown) cap PO DAILY 01/10/22 04/30/22 (unknown) (no (unknown) (unknown) duloxetine 60 mg (units (unknown) date) capsule,delayed unknown) release(DR/EC) (unknown) (no (unknown) (unknown) erythema (units (unkno wn) date) surrounding unknown) (unknown) (no (unknown) (unknown) fevers, (units (unkno wn) date) abdominal pain, unknown) significant chest pain, headaches, slurred speech, (unknown) (no (unknown) (unknown) fluticasone 250 (units (unknown) date) mcg-salmeterol 50 unknown) 1 ea inhalation BID 01/10/22 04/30/22 (unknown) (no (unknown) (unknown) fluticasone (units (un known) date) propion-salmetero unknown) l [[facility] In[facility]] 250-50 mcg/dose blister with (unknown) (no (unknown) (unknown) fluticasone (units (un known) date) propionate 50 1 unknown) ea intranasal BID 01/10/22 04/30/22 (unknown) (no (unknown) (unknown) fluticasone (units (un known) date) propionate 50 unknown) mcg/actuation spray,suspension (unknown) (no (unknown) (unknown) history of (units (unk nown) date) candidal sepsis. unknown) Also has a history of seizures, opiate addiction, (unknown) (no (unknown) (unknown) household (units (unkn own) date) members: none unknown) (unknown) (no (unknown) (unknown) hydroxyzine HCl (units (unknown) date) 50 mg tablet 2 unknown) tab PO TID 01/10/22 04/30/22 (unknown) (no (unknown) (unknown) hydroxyzine HCl (units (unknown) date) 50 mg tablet unknown) (unknown) (no (unknown) (unknown) icterus. No (units (un known) date) injection or unknown) drainage. (unknown) (no (unknown) (unknown) infusion of (units (un known) date) fluconazole with unknown) plans to get the PICC in the next day.. Has a (unknown) (no (unknown) (unknown) inhalation (units (unk nown) date) ([facility] In[facility]) unknown) (unknown) (no (unknown) (unknown) lamotrigine 200 (units (unknown) date) mg tablet 2 tab unknown) PO BEDTIME 01/10/22 04/30/22 (unknown) (no (unknown) (unknown) lamotrigine 200 (units (unknown) date) mg tablet unknown) (unknown) (no (unknown) (unknown) lidocaine (units (unkn own) date) AdvReac unknown) Intermediate Verified 09/25/22 11:49 (unknown) (no (unknown) (unknown) mcg/actuation (units ( unknown) date) nasal unknown) (unknown) (no (unknown) (unknown) mcg/dose blistr (units (unknown) date) powdr for unknown) (unknown) (no (unknown) (unknown) meloxicam 15 mg (units (unknown) date) tablet 1 tab unknown) DAILY 01/10/22 04/30/22 (unknown) (no (unknown) (unknown) meloxicam 15 mg (units (unknown) date) tablet unknown) (unknown) (no (unknown) (unknown) mg tablet (units (unkn own) date) unknown) (unknown) (no (unknown) (unknown) not recall any (units (unknown) date) specific event unknown) that caused the worsening shortness of breath. (unknown) (no (unknown) (unknown) over the mid (units (u nknown) date) SVC. unknown) (unknown) (no (unknown) (unknown) pain with (units (unkn own) date) palpation of the unknown) chest (unknown) (no (unknown) (unknown) projecting (units (unk nown) date) unknown) (unknown) (no (unknown) (unknown) rales, or (units (unkn own) date) rhonchi. unknown) (unknown) (no (unknown) (unknown) release (units (unkno wn) date) unknown) (unknown) (no (unknown) (unknown) seizures, (units (unkn own) date) incoordination. unknown) (unknown) (no (unknown) (unknown) significant (units (un known) date) relief causing unknown) her come in. She denies any nausea, vomiting, (unknown) (no (unknown) (unknown) spray,suspension (units (unknown) date) unknown) (unknown) (no (unknown) (unknown) tonsillar (units (unkn own) date) hypertrophy or unknown) exudate. Airway patent. (unknown) (no (unknown) (unknown) tox [Urine Drug (units (unknown) date) Screen, Rapid] unknown) Stat (unknown) (no (unknown) (unknown) unremarkable.? (units (unknown) date) unknown) (unknown) (no (unknown) (unknown) vancomycin (units (unk nown) date) AdvReac Verified unknown) 09/25/22 11:49 (unknown) (no (unknown) (unknown) weakness, or any (units (unknown) date) other concerning unknown) signs or symptoms. (unknown) (no (unknown) (unknown) within the left (units (unknown) date) upper lobe. unknown) (unknown) (no (unknown) (unknown) worsening acute (units (unknown) date) on chronic unknown) shortness of breath onset 2 days ago. Patient does Result panel 229 (unknown) (no date) (unknown) (unknown) 2.1 mmol/l (unkn own) Result panel 230 (unknown) (no (unknown) (unknown) (no value) (units (unk nown) date) unknown) (unknown) (no (unknown) (unknown) * Clinical (units (unk nown) date) Decision unknown) Rules/Scores evaluated: [ ] (unknown) (no (unknown) (unknown) * Independent (units ( unknown) date) discussions with: unknown) [ ] (unknown) (no (unknown) (unknown) * My imgaing (units (u nknown) date) interpretation: [ unknown) ] (unknown) (no (unknown) (unknown) * My lab (units (unkno wn) date) interpretation: [ unknown) ] (unknown) (no (unknown) (unknown) * Prior records (units (unknown) date) reviewed: Patient unknown) was last seen here 4 months ago for an IV (unknown) (no (unknown) (unknown) * differential (units (unknown) date) diagnosis unknown) includes but not limited to [ ] (unknown) (no (unknown) (unknown) 09/25/22 (units (unkno wn) date) 09/25/22 09/25/22 unknown) Range/Units (unknown) (no (unknown) (unknown) 09/25/22 11:54 (units (unknown) date) unknown) (unknown) (no (unknown) (unknown) 09/25/22 11:55 (units (unknown) date) unknown) (unknown) (no (unknown) (unknown) 09/25/22 12:12 (units (unknown) date) unknown) (unknown) (no (unknown) (unknown) 09/25/22 12:14 (units (unknown) date) unknown) (unknown) (no (unknown) (unknown) 09/25/22 12:28 (units (unknown) date) unknown) (unknown) (no (unknown) (unknown) 09/25/22 12:36 (units (unknown) date) unknown) (unknown) (no (unknown) (unknown) 09/25/22 12:44 (units (unknown) date) unknown) (unknown) (no (unknown) (unknown) 09/25/22 13:11 (units (unknown) date) unknown) (unknown) (no (unknown) (unknown) 09/25/22 14:01 (units (unknown) date) unknown) (unknown) (no (unknown) (unknown) 09/25/22 (units (unkno wn) date) Range/Units unknown) (unknown) (no (unknown) (unknown) 09/25/22 (units (unkno wn) date) unknown) (unknown) (no (unknown) (unknown) 1 cap PO DAILY (units (unknown) date) unknown) (unknown) (no (unknown) (unknown) 1 ea INHALATION (units (unknown) date) BID unknown) (unknown) (no (unknown) (unknown) 1 ea INTRANASAL (units (unknown) date) BID unknown) (unknown) (no (unknown) (unknown) 1 tab 1XD (units (unkn own) date) unknown) (unknown) (no (unknown) (unknown) 1 tab DAILY (units (un known) date) unknown) (unknown) (no (unknown) (unknown) 1 tab PO BEDTIME (units (unknown) date) unknown) (unknown) (no (unknown) (unknown) 1 tab PO QID (units (u nknown) date) unknown) (unknown) (no (unknown) (unknown) 11:49 09/25/22 (units (unknown) date) unknown) (unknown) (no (unknown) (unknown) 11:55 12:28 (units (un known) date) 12:28 unknown) (unknown) (no (unknown) (unknown) 12 point review (units (unknown) date) of systems is unknown) negative except for those stated above (unknown) (no (unknown) (unknown) [address] [place] [address] (units (unknown) date) unknown) (unknown) (no (unknown) (unknown) 12:12 09/25/22 (units (unknown) date) unknown) (unknown) (no (unknown) (unknown) 12:13 09/25/22 (units (unknown) date) unknown) (unknown) (no (unknown) (unknown) 12:13 (units (unkno wn) date) unknown) (unknown) (no (unknown) (unknown) 12:15 09/25/22 (units (unknown) date) unknown) (unknown) (no (unknown) (unknown) 12:27 09/25/22 (units (unknown) date) unknown) (unknown) (no (unknown) (unknown) 12:27 (units (unkno wn) date) unknown) (unknown) (no (unknown) (unknown) 12:28 12:28 (units (un known) date) 12:44 unknown) (unknown) (no (unknown) (unknown) 12:30 09/25/22 (units (unknown) date) unknown) (unknown) (no (unknown) (unknown) 12:31 09/25/22 (units (unknown) date) unknown) (unknown) (no (unknown) (unknown) 12:31 (units (unkno wn) date) unknown) (unknown) (no (unknown) (unknown) 12:45 09/25/22 (units (unknown) date) unknown) (unknown) (no (unknown) (unknown) 12:45 (units (unkno wn) date) unknown) (unknown) (no (unknown) (unknown) 12:50 09/25/22 (units (unknown) date) unknown) (unknown) (no (unknown) (unknown) 13:00 09/25/22 (units (unknown) date) unknown) (unknown) (no (unknown) (unknown) 13:00 (units (unkno wn) date) unknown) (unknown) (no (unknown) (unknown) 13:10 09/25/22 (units (unknown) date) unknown) (unknown) (no (unknown) (unknown) 13:15 09/25/22 (units (unknown) date) unknown) (unknown) (no (unknown) (unknown) 13:15 (units (unkno wn) date) unknown) (unknown) (no (unknown) (unknown) 13:20 09/25/22 (units (unknown) date) unknown) (unknown) (no (unknown) (unknown) 13:20 (units (unkno wn) date) unknown) (unknown) (no (unknown) (unknown) 13:25 09/25/22 (units (unknown) date) unknown) (unknown) (no (unknown) (unknown) 13:30 09/25/22 (units (unknown) date) unknown) (unknown) (no (unknown) (unknown) 13:30 (units (unkno wn) date) unknown) (unknown) (no (unknown) (unknown) 13:35 09/25/22 (units (unknown) date) unknown) (unknown) (no (unknown) (unknown) 13:35 (units (unkno wn) date) unknown) (unknown) (no (unknown) (unknown) 13:40 09/25/22 (units (unknown) date) unknown) (unknown) (no (unknown) (unknown) 13:49 (units (unkno wn) date) unknown) (unknown) (no (unknown) (unknown) 13:50 09/25/22 (units (unknown) date) unknown) (unknown) (no (unknown) (unknown) 13:55 09/25/22 (units (unknown) date) unknown) (unknown) (no (unknown) (unknown) 13:55 (units (unkno wn) date) unknown) (unknown) (no (unknown) (unknown) 14:00 09/25/22 (units (unknown) date) unknown) (unknown) (no (unknown) (unknown) 14:00 (units (unkno wn) date) unknown) (unknown) (no (unknown) (unknown) 14:05 09/25/22 (units (unknown) date) unknown) (unknown) (no (unknown) (unknown) 14:10 09/25/22 (units (unknown) date) unknown) (unknown) (no (unknown) (unknown) 14:10 (units (unkno wn) date) unknown) (unknown) (no (unknown) (unknown) 14:25 09/25/22 (units (unknown) date) unknown) (unknown) (no (unknown) (unknown) 14:25 (units (unkno wn) date) unknown) (unknown) (no (unknown) (unknown) 14:30 09/25/22 (units (unknown) date) unknown) (unknown) (no (unknown) (unknown) 14:35 09/25/22 (units (unknown) date) unknown) (unknown) (no (unknown) (unknown) 14:35 (units (unkno wn) date) unknown) (unknown) (no (unknown) (unknown) 14:40 09/25/22 (units (unknown) date) unknown) (unknown) (no (unknown) (unknown) 14:40 (units (unkno wn) date) unknown) (unknown) (no (unknown) (unknown) 14:45 09/25/22 (units (unknown) date) unknown) (unknown) (no (unknown) (unknown) 14:50 09/25/22 (units (unknown) date) unknown) (unknown) (no (unknown) (unknown) 14:50 (units (unkno wn) date) unknown) (unknown) (no (unknown) (unknown) 14:55 09/25/22 (units (unknown) date) unknown) (unknown) (no (unknown) (unknown) 14:55 (units (unkno wn) date) unknown) (unknown) (no (unknown) (unknown) 15:00 09/25/22 (units (unknown) date) unknown) (unknown) (no (unknown) (unknown) 15:05 09/25/22 (units (unknown) date) unknown) (unknown) (no (unknown) (unknown) 15:05 (units (unkno wn) date) unknown) (unknown) (no (unknown) (unknown) 15:10 09/25/22 (units (unknown) date) unknown) (unknown) (no (unknown) (unknown) 15:10 (units (unkno wn) date) unknown) (unknown) (no (unknown) (unknown) 15:15 09/25/22 (units (unknown) date) unknown) (unknown) (no (unknown) (unknown) 15:20 09/25/22 (units (unknown) date) unknown) (unknown) (no (unknown) (unknown) 15:20 (units (unkno wn) date) unknown) (unknown) (no (unknown) (unknown) 15:25 09/25/22 (units (unknown) date) unknown) (unknown) (no (unknown) (unknown) 15:25 (units (unkno wn) date) unknown) (unknown) (no (unknown) (unknown) 15:30 09/25/22 (units (unknown) date) unknown) (unknown) (no (unknown) (unknown) 15:35 09/25/22 (units (unknown) date) unknown) (unknown) (no (unknown) (unknown) 15:35 (units (unkno wn) date) unknown) (unknown) (no (unknown) (unknown) 15:40 09/25/22 (units (unknown) date) unknown) (unknown) (no (unknown) (unknown) 15:40 (units (unkno wn) date) unknown) (unknown) (no (unknown) (unknown) 15:45 09/25/22 (units (unknown) date) unknown) (unknown) (no (unknown) (unknown) 15:50 09/25/22 (units (unknown) date) unknown) (unknown) (no (unknown) (unknown) 15:50 (units (unkno wn) date) unknown) (unknown) (no (unknown) (unknown) 15:55 09/25/22 (units (unknown) date) unknown) (unknown) (no (unknown) (unknown) 15:55 (units (unkno wn) date) unknown) (unknown) (no (unknown) (unknown) 16:00 09/25/22 (units (unknown) date) unknown) (unknown) (no (unknown) (unknown) 16:05 09/25/22 (units (unknown) date) unknown) (unknown) (no (unknown) (unknown) 16:05 (units (unkno wn) date) unknown) (unknown) (no (unknown) (unknown) 16:10 09/25/22 (units (unknown) date) unknown) (unknown) (no (unknown) (unknown) 16:10 (units (unkno wn) date) unknown) (unknown) (no (unknown) (unknown) 16:13 09/25/22 (units (unknown) date) unknown) (unknown) (no (unknown) (unknown) 16:15 09/25/22 (units (unknown) date) unknown) (unknown) (no (unknown) (unknown) 16:15 (units (unkno wn) date) unknown) (unknown) (no (unknown) (unknown) 16:20 09/25/22 (units (unknown) date) unknown) (unknown) (no (unknown) (unknown) 16:20 (units (unkno wn) date) unknown) (unknown) (no (unknown) (unknown) 2 puff (units (unkno wn) date) INHALATION Q4HR unknown) PRN (Reason: Shortness Of Breath) (unknown) (no (unknown) (unknown) 2 tab PO BEDTIME (units (unknown) date) unknown) (unknown) (no (unknown) (unknown) 2 tab PO TID (units (u nknown) date) unknown) (unknown) (no (unknown) (unknown) ? (units (unkno wn) date) unknown) (unknown) (no (unknown) (unknown) ALT (<35) IU/L (units (unknown) date) unknown) (unknown) (no (unknown) (unknown) ALT 25 (<35) (units (u nknown) date) IU/L unknown) (unknown) (no (unknown) (unknown) AST (14-36) IU/L (units (unknown) date) unknown) (unknown) (no (unknown) (unknown) AST 44 H (14-36) (units (unknown) date) IU/L unknown) (unknown) (no (unknown) (unknown) Accession (units (unkn own) date) Number: unknown) [id number] ?? (unknown) (no (unknown) (unknown) Acct:[id number] (units (unknown) date) unknown) (unknown) (no (unknown) (unknown) Addiction, opium (units (unknown) date) unknown) (unknown) (no (unknown) (unknown) Admin: 09/25/22 (units (unknown) date) 13:19 Dose: 1,000 unknown) mls/hr (unknown) (no (unknown) (unknown) Admin: 09/25/22 (units (unknown) date) 14:46 Dose: 200 unknown) mls/hr (unknown) (no (unknown) (unknown) Age/Sex: 52 / F (units (unknown) date) unknown) (unknown) (no (unknown) (unknown) Albumin (units (unkno wn) date) (3.5-5.0) g/dL unknown) (unknown) (no (unknown) (unknown) Albumin 3.0 L (units ( unknown) date) (3.5-5.0) g/dL unknown) (unknown) (no (unknown) (unknown) Albumin/Globulin (units (unknown) date) Ratio (1.0-2.8) unknown) (unknown) (no (unknown) (unknown) Albumin/Globulin (units (unknown) date) Ratio 0.8 L unknown) (1.0-2.8) (unknown) (no (unknown) (unknown) Albuterol/Ipratr (units (unknown) date) opium unknown) (Albuterol/Ipratr opium 3 Ml Ampul) 6 ml INH NOW ONE (unknown) (no (unknown) (unknown) Alkaline (units (unkno wn) date) Phosphatase unknown) (38-126) U/L (unknown) (no (unknown) (unknown) Alkaline (units (unkno wn) date) Phosphatase 203 H unknown) (38-126) U/L (unknown) (no (unknown) (unknown) Allergies (units (unkn own) date) unknown) (unknown) (no (unknown) (unknown) Allergy/AdvReac (units (unknown) date) Type Severity unknown) Reaction Status Date / Time (unknown) (no (unknown) (unknown) [place], [place] (units ( unknown) date) [id number] unknown) (unknown) (no (unknown) (unknown) Anisocytosis 1+ (units (unknown) date) H unknown) (unknown) (no (unknown) (unknown) Anisocytosis (units (u nknown) date) unknown) (unknown) (no (unknown) (unknown) Approved by: (units (u nknown) date) kishor Telles M.D. on 09/25/2022 at 13:13 ? (unknown) (no (unknown) (unknown) BACK: Nontender (units (unknown) date) without deformity unknown) or crepitance. No flank tenderness. (unknown) (no (unknown) (unknown) BUN (7-17) mg/dL (units (unknown) date) unknown) (unknown) (no (unknown) (unknown) BUN 44 H (7-17) (units (unknown) date) mg/dL unknown) (unknown) (no (unknown) (unknown) BUN/Creatinine (units (unknown) date) Ratio (6-22) unknown) (unknown) (no (unknown) (unknown) BUN/Creatinine (units (unknown) date) Ratio 49.4 H unknown) (6-22) (unknown) (no (unknown) (unknown) Band Neutrophils (units (unknown) date) % (3-7) % unknown) (unknown) (no (unknown) (unknown) Band Neutrophils (units (unknown) date) % 28.0 H (3-7) % unknown) (unknown) (no (unknown) (unknown) Baso # (Auto) (units ( unknown) date) Not Reportable unknown) (unknown) (no (unknown) (unknown) Baso # (Auto) (units ( unknown) date) unknown) (unknown) (no (unknown) (unknown) Baso % (Auto) (units ( unknown) date) Not Reportable unknown) (unknown) (no (unknown) (unknown) Baso % (Auto) (units ( unknown) date) unknown) (unknown) (no (unknown) (unknown) Basophils % (units (un known) date) (Manual) (0-1) % unknown) (unknown) (no (unknown) (unknown) Basophils % (units (un known) date) (Manual) 1.0 unknown) (0-1) % (unknown) (no (unknown) (unknown) Blood Culture (units ( unknown) date) Stat unknown) (unknown) (no (unknown) (unknown) Blood Pressure (units (unknown) date) 82/51 L 83/52 L unknown) (unknown) (no (unknown) (unknown) Blood Pressure (units (unknown) date) 83/50 L unknown) (unknown) (no (unknown) (unknown) Blood Pressure (units (unknown) date) 83/52 L unknown) (unknown) (no (unknown) (unknown) Blood Pressure (units (unknown) date) 84/53 L unknown) (unknown) (no (unknown) (unknown) Blood Pressure (units (unknown) date) 85/54 L 87/55 L unknown) (unknown) (no (unknown) (unknown) Blood Pressure (units (unknown) date) 87/52 L unknown) (unknown) (no (unknown) (unknown) Blood Pressure (units (unknown) date) 88/50 L unknown) (unknown) (no (unknown) (unknown) Blood Pressure (units (unknown) date) 88/53 L unknown) (unknown) (no (unknown) (unknown) Blood Pressure (units (unknown) date) 88/55 L unknown) (unknown) (no (unknown) (unknown) Blood Pressure (units (unknown) date) 89/53 L unknown) (unknown) (no (unknown) (unknown) Blood Pressure (units (unknown) date) 89/55 L unknown) (unknown) (no (unknown) (unknown) Blood Pressure (units (unknown) date) 90/54 L 86/53 L unknown) (unknown) (no (unknown) (unknown) Blood Pressure (units (unknown) date) 91/50 L 90/52 L unknown) (unknown) (no (unknown) (unknown) Blood Pressure (units (unknown) date) 91/50 L 94/52 L unknown) (unknown) (no (unknown) (unknown) Blood Pressure (units (unknown) date) 91/51 L 85/53 L unknown) (unknown) (no (unknown) (unknown) Blood Pressure (units (unknown) date) 91/52 L 89/50 L unknown) (unknown) (no (unknown) (unknown) Blood Pressure (units (unknown) date) 92/50 L 87/52 L unknown) (unknown) (no (unknown) (unknown) Blood Pressure (units (unknown) date) 92/53 L unknown) (unknown) (no (unknown) (unknown) Blood Pressure (units (unknown) date) 93/52 L 85/47 L unknown) (unknown) (no (unknown) (unknown) Blood Pressure (units (unknown) date) 93/54 L unknown) (unknown) (no (unknown) (unknown) Blood Pressure (units (unknown) date) 93/55 L 89/51 L unknown) (unknown) (no (unknown) (unknown) Blood Pressure (units (unknown) date) 94/50 L unknown) (unknown) (no (unknown) (unknown) Blood Pressure (units (unknown) date) 94/54 L 99/52 L unknown) (unknown) (no (unknown) (unknown) Blood Pressure (units (unknown) date) 95/52 L 90/55 L unknown) (unknown) (no (unknown) (unknown) Blood Pressure (units (unknown) date) 95/52 L unknown) (unknown) (no (unknown) (unknown) Blood Pressure (units (unknown) date) 95/54 L unknown) (unknown) (no (unknown) (unknown) Blood Pressure (units (unknown) date) 96/60 09/25/22 unknown) 11:49 (unknown) (no (unknown) (unknown) Blood Pressure (units (unknown) date) 96/60 85/52 L unknown) (unknown) (no (unknown) (unknown) Blood Pressure (units (unknown) date) 97/52 L unknown) (unknown) (no (unknown) (unknown) Blood Pressure (units (unknown) date) 99/57 L 95/53 L unknown) (unknown) (no (unknown) (unknown) Blood Pressure (units (unknown) date) unknown) (unknown) (no (unknown) (unknown) Bones and chest (units (unknown) date) wall:? No unknown) suspicious bony lesions.? Overlying soft tissues (unknown) (no (unknown) (unknown) CARDIOVASCULAR: (units (unknown) date) Denies chest unknown) pain, palpitations, orthopnea, edema, (unknown) (no (unknown) (unknown) CARDIOVASCULAR: (units (unknown) date) Regular rate and unknown) rhythm without murmurs, gallops, or rubs. Mild (unknown) (no (unknown) (unknown) COMPARISON:? (units (u nknown) date) [facility], unknown) CR, XR CHEST 2V, 06/04/2022, 12:38. (unknown) (no (unknown) (unknown) CT angio chest (units (unknown) date) PE protocol Stat unknown) (unknown) (no (unknown) (unknown) Cachexia (units (unkno wn) date) unknown) (unknown) (no (unknown) (unknown) Calcium (units (o wn) date) (8.4-10.2) mg/dL unknown) (unknown) (no (unknown) (unknown) Calcium 8.4 (units (un known) date) (8.4-10.2) mg/dL unknown) (unknown) (no (unknown) (unknown) Carbon Dioxide (units (unknown) date) (22-32) mmol/L unknown) (unknown) (no (unknown) (unknown) Carbon Dioxide (units (unknown) date) 22 (22-32) mmol/L unknown) (unknown) (no (unknown) (unknown) Chest x-ray: (units (u nkn) date) unknown) (unknown) (no (unknown) (unknown) Chief Complaint: (units (unknown) date) Upper Respiratory unknown) Symptoms (unknown) (no (unknown) (unknown) Chloride (units (o wn) date) (98-107) mmol/L unknown) (unknown) (no (unknown) (unknown) Chloride 98 (units (un known) date) (98-107) mmol/L unknown) (unknown) (no (unknown) (unknown) Complete Blood (units (unknown) date) Count AUTO DIFF unknown) Stat (unknown) (no (unknown) (unknown) Comprehensive (units ( unknown) date) Metabolic Panel unknown) Stat (unknown) (no (unknown) (unknown) Course (units (o wn) date) unknown) (unknown) (no (unknown) (unknown) Covid-19 + FLU (units (unknown) date) A/B + RSV - PCR unknown) Stat (unknown) (no (unknown) (unknown) Creatinine (units (unk nown) date) (0.52-1.04) mg/dL unknown) (unknown) (no (unknown) (unknown) Creatinine 0.89 (units (unknown) date) (0.52-1.04) mg/dL unknown) (unknown) (no (unknown) (unknown) D Dimer Stat (units (u nknown) date) unknown) (unknown) (no (unknown) (unknown) D-Dimer (<500) (units (unknown) date) ng/ml unknown) (unknown) (no (unknown) (unknown) D-Dimer 3576 H (units (unknown) date) (<500) ng/ml unknown) (unknown) (no (unknown) (unknown) : 1970 (units (unknown) date) Acct:[id number] unknown) (unknown) (no (unknown) (unknown) : 1970 (units (unknown) date) unknown) (unknown) (no (unknown) (unknown) Date of Service: (units (unknown) date) 09/25/22 unknown) (unknown) (no (unknown) (unknown) Departure (units (unkn own) date) unknown) (unknown) (no (unknown) (unknown) Dictated by: (units (u nknown) date) Janice Arana unknownTomasa Mansfield on 09/25/2022 at 13:12 ? ? (unknown) (no (unknown) (unknown) Discharge Plan (units (unknown) date) unknown) (unknown) (no (unknown) (unknown) Discontinued (units (u nknown) date) Medications unknown) (unknown) (no (unknown) (unknown) Disposition: [ ] (units (unknown) date) unknown) (unknown) (no (unknown) (unknown) Documented By: (units (unknown) date) JZF unknown) (unknown) (no (unknown) (unknown) Documented By: (units (unknown) date) NR unknown) (unknown) (no (unknown) (unknown) Documented By: (units (unknown) date) RB unknown) (unknown) (no (unknown) (unknown) ED Course: [ ] (units (unknown) date) unknown) (unknown) (no (unknown) (unknown) ED Orders (units (unkn own) date) unknown) (unknown) (no (unknown) (unknown) EKG-12 Lead Stat (units (unknown) date) unknown) (unknown) (no (unknown) (unknown) ENT: Nose (units (unkn own) date) without bleeding, unknown) purulent drainage. Throat without erythema, (unknown) (no (unknown) (unknown) ER Physician: (units ( unknown) date) Bethel Flynn P.A-C unknown) (unknown) (no (unknown) (unknown) EXTREMITIES: No (units (unknown) date) edema or joint unknown) tenderness. (unknown) (no (unknown) (unknown) EYES: Pupils (units (u nknown) date) equal round and unknown) reactive. Extraocular motions intact. No scleral (unknown) (no (unknown) (unknown) Emergency Report (units (unknown) date) unknown) (unknown) (no (unknown) (unknown) Eos % (Auto) Not (units (unknown) date) Reportable unknown) (unknown) (no (unknown) (unknown) Eos % (Auto) (units (u nknown) date) unknown) (unknown) (no (unknown) (unknown) Estimated GFR > (units (unknown) date) 60 (>60) mL/min unknown) (unknown) (no (unknown) (unknown) Estimated GFR (units ( unknown) date) (>60) mL/min unknown) (unknown) (no (unknown) (unknown) Exam Narrative: (units (unknown) date) unknown) (unknown) (no (unknown) (unknown) Exam (units (unkno wn) date) unknown) (unknown) (no (unknown) (unknown) FINDINGS:? (units (unk nown) date) unknown) (unknown) (no (unknown) (unknown) GASTROINTESTINAL (units (unknown) date) : Abdomen soft, unknown) non-tender, nondistended. (unknown) (no (unknown) (unknown) GASTROINTESTINAL (units (unknown) date) : Denies nausea, unknown) vomiting, abdominal pain, diarrhea, (unknown) (no (unknown) (unknown) GENERAL: Denies (units (unknown) date) chills, fatigue, unknown) malaise, fever, sweats. (unknown) (no (unknown) (unknown) GENERAL: (units (unkno wn) date) Well-developed unknown) patient, in mild distress. (unknown) (no (unknown) (unknown) : Denies (units (unk nown) date) dysuria, unknown) frequency, incontinence, hematuria, urinary retention. (unknown) (no (unknown) (unknown) Gastroparesis (units ( unknown) date) unknown) (unknown) (no (unknown) (unknown) General (units (unkno wn) date) unknown) (unknown) (no (unknown) (unknown) Globulin (units (unkno wn) date) (1.7-4.1) g/dL unknown) (unknown) (no (unknown) (unknown) Globulin 4.0 (units (u nknown) date) (1.7-4.1) g/dL unknown) (unknown) (no (unknown) (unknown) Glucose (70-100) (units (unknown) date) mg/dL unknown) (unknown) (no (unknown) (unknown) Glucose 117 H (units ( unknown) date) (70-100) mg/dL unknown) (unknown) (no (unknown) (unknown) HEAD: (units (unkno wn) date) Atraumatic. unknown) Normocephalic. (unknown) (no (unknown) (unknown) HEENT: Denies (units ( unknown) date) sinus pain, ear unknown) pain, sore throat, difficulty swallowing, (unknown) (no (unknown) (unknown) HPI - URI/Sore (units (unknown) date) Throat unknown) (unknown) (no (unknown) (unknown) HPI Narrative: (units (unknown) date) unknown) (unknown) (no (unknown) (unknown) Hct (36-46) % (units ( unknown) date) unknown) (unknown) (no (unknown) (unknown) Hct 27.7 L (units (unk nown) date) (36-46) % unknown) (unknown) (no (unknown) (unknown) Hgb (12.0-16.0) (units (unknown) date) g/dL unknown) (unknown) (no (unknown) (unknown) Hgb 8.7 L (units (unkn own) date) (12.0-16.0) g/dL unknown) (unknown) (no (unknown) (unknown) History of (units (unk nown) date) Present Illness unknown) (unknown) (no (unknown) (unknown) History of (units (unk nown) date) gastrectomy unknown) (unknown) (no (unknown) (unknown) Home Medications (units (unknown) date) unknown) (unknown) (no (unknown) (unknown) IMPRESSION:? (units (u nknown) date) Patchy bilateral unknown) opacities suspicious for pneumonia. (unknown) (no (unknown) (unknown) INDICATIONS:? (units ( unknown) date) Shortness of unknown) breath (unknown) (no (unknown) (unknown) INHALE 1 PUFF BY (units (unknown) date) MOUTH TWICE unknown) DAILY. RINSE MOUTH AFTER USE (unknown) (no (unknown) (unknown) INR (0.9-1.3) (units ( unknown) date) unknown) (unknown) (no (unknown) (unknown) INR 1.6 H (units (unkn own) date) (0.9-1.3) unknown) (unknown) (no (unknown) (unknown) Imaging Data (units (u nknown) date) unknown) (unknown) (no (unknown) (unknown) Influenza A (units (un known) date) (RT-PCR) unknown) (NEGATIVE) (unknown) (no (unknown) (unknown) Influenza A (units (un known) date) (RT-PCR) Flu a unknown) negative (NEGATIVE) (unknown) (no (unknown) (unknown) Influenza B (units (un known) date) (RT-PCR) unknown) (NEGATIVE) (unknown) (no (unknown) (unknown) Influenza B (units (un known) date) (RT-PCR) Flu b unknown) negative (NEGATIVE) (unknown) (no (unknown) (unknown) Initial Vital (units ( unknown) date) Signs unknown) (unknown) (no (unknown) (unknown) Initial Vital (units ( unknown) date) Signs: unknown) (unknown) (no (unknown) (unknown) [facility] (units (unknown) date) [address] unknown) [place] [address] (unknown) (no (unknown) (unknown) [facility] (units (unknown) date) unknown) (unknown) (no (unknown) (unknown) Lab Data (units (unkno wn) date) unknown) (unknown) (no (unknown) (unknown) Lab Results (units (un known) date) unknown) (unknown) (no (unknown) (unknown) Labs: (units (unkno wn) date) unknown) (unknown) (no (unknown) (unknown) Lactate (units (unkno wn) date) (0.7-2.1) mmol/L unknown) (unknown) (no (unknown) (unknown) Lactate (Lactic (units (unknown) date) Acid) Stat unknown) (unknown) (no (unknown) (unknown) Lactate 2.1 (units (un known) date) (0.7-2.1) mmol/L unknown) (unknown) (no (unknown) (unknown) Lactate 2.6 H (units ( unknown) date) (0.7-2.1) mmol/L unknown) (unknown) (no (unknown) (unknown) Last Admin: (units (un known) date) 09/25/22 12:49 unknown) Dose: 6 ml (unknown) (no (unknown) (unknown) Last Admin: (units (un known) date) 09/25/22 15:01 unknown) Dose: Not Given (unknown) (no (unknown) (unknown) Last Admin: (units (un known) date) 09/25/22 15:02 unknown) Dose: 200 mls/hr (unknown) (no (unknown) (unknown) Last Infusion: (units (unknown) date) 09/25/22 14:35 unknown) Dose: 0 mls/hr (unknown) (no (unknown) (unknown) Last Infusion: (units (unknown) date) 09/25/22 15:29 unknown) Dose: 0 mls/hr (unknown) (no (unknown) (unknown) Loc: ED (units (unkno wn) date) unknown) (unknown) (no (unknown) (unknown) Lungs and (units (unkn own) date) pleura:? Patchy unknown) right middle and lower lobe opacities and to a lesser (unknown) (no (unknown) (unknown) Lymph # (Auto) (units (unknown) date) Not Reportable unknown) (unknown) (no (unknown) (unknown) Lymph # (Auto) (units (unknown) date) unknown) (unknown) (no (unknown) (unknown) Lymph % (Auto) (units (unknown) date) Not Reportable unknown) (unknown) (no (unknown) (unknown) Lymph % (Auto) (units (unknown) date) unknown) (unknown) (no (unknown) (unknown) Lymphocytes % (units ( unknown) date) (Manual) (25-45) unknown) % (unknown) (no (unknown) (unknown) Lymphocytes % (units ( unknown) date) (Manual) 9.0 L unknown) (25-45) % (unknown) (no (unknown) (unknown) [id number] (units (unk nown) date) unknown) (unknown) (no (unknown) (unknown) MCH (26-34) PG (units (unknown) date) unknown) (unknown) (no (unknown) (unknown) MCH 21.4 L (units (unk nown) date) (26-34) PG unknown) (unknown) (no (unknown) (unknown) MCHC (30-36) % (units (unknown) date) unknown) (unknown) (no (unknown) (unknown) MCHC 31.4 (units (unkn own) date) (30-36) % unknown) (unknown) (no (unknown) (unknown) MCV (80-100) fL (units (unknown) date) unknown) (unknown) (no (unknown) (unknown) MCV 68.4 L (units (unk nown) date) (80-100) fL unknown) (unknown) (no (unknown) (unknown) MDM - URI/Sore (units (unknown) date) Throat unknown) (unknown) (no (unknown) (unknown) MDM Narrative (units ( unknown) date) unknown) (unknown) (no (unknown) (unknown) MDM (units (unkno wn) date) unknown) (unknown) (no (unknown) (unknown) MR#: [id number] (units (unknown) date) unknown) (unknown) (no (unknown) (unknown) MUSCULOSKELETAL: (units (unknown) date) denies weakness, unknown) joint pain, or bony pain (unknown) (no (unknown) (unknown) Measure peak (units (u nknown) date) expiratory flow unknown) ONCE (unknown) (no (unknown) (unknown) Mediastinum:? (units ( unknown) date) Mediastinal unknown) contours appear normal.? Heart size is normal.? (unknown) (no (unknown) (unknown) Medical History (units (unknown) date) (Reviewed unknown) 06/09/22 @ 13:35 by Madie Polo MD) (unknown) (no (unknown) (unknown) Medical decision (units (unknown) date) making narrative: unknown) (unknown) (no (unknown) (unknown) Medication (units (unk nown) date) Instructions unknown) Recorded Confirmed (unknown) (no (unknown) (unknown) Meropenem 500 (units ( unknown) date) mg/ Sodium unknown) (Chloride) 100 mls @ 200 mls/hr IV NOW ONE (unknown) (no (unknown) (unknown) Metamyelocytes % (units (unknown) date) (-0) % unknown) (unknown) (no (unknown) (unknown) Metamyelocytes % (units (unknown) date) 3.0 H (-0) % unknown) (unknown) (no (unknown) (unknown) Microcytosis 2+ (units (unknown) date) H unknown) (unknown) (no (unknown) (unknown) Microcytosis (units (u nknown) date) unknown) (unknown) (no (unknown) (unknown) Mode of arrival: (units (unknown) date) Wheelchair unknown) (unknown) (no (unknown) (unknown) Hyde # (Auto) (units ( unknown) date) Not Reportable unknown) (unknown) (no (unknown) (unknown) Hyde # (Auto) (units ( unknown) date) unknown) (unknown) (no (unknown) (unknown) Hyde % (Auto) (units ( unknown) date) Not Reportable unknown) (unknown) (no (unknown) (unknown) Hyde % (Auto) (units ( unknown) date) unknown) (unknown) (no (unknown) (unknown) Monocytes % (units (un known) date) (Manual) (2-11) % unknown) (unknown) (no (unknown) (unknown) Monocytes % (units (un known) date) (Manual) 8.0 unknown) (2-11) % (unknown) (no (unknown) (unknown) NECK: Trachea (units ( unknown) date) midline. Non unknown) tender (unknown) (no (unknown) (unknown) NEURO: AOx3. (units (u nknown) date) unknown) (unknown) (no (unknown) (unknown) NEUROLOGIC: (units (un known) date) Denies weakness, unknown) headache, numbness, change in speech, confusion, (unknown) (no (unknown) (unknown) NT-Pro-B (units (unkno wn) date) Natriuret Pep unknown) (<125) pg/mL (unknown) (no (unknown) (unknown) NT-Pro-B (units (unkno wn) date) Natriuret Pep unknown) 7310 H (<125) pg/mL (unknown) (no (unknown) (unknown) NT-proBNP (units (unkn own) date) (BNP-Adult 18+) unknown) Stat (unknown) (no (unknown) (unknown) Narrative (units (unkn own) date) unknown) (unknown) (no (unknown) (unknown) Narrative: (units (unk nown) date) unknown) (unknown) (no (unknown) (unknown) Neut % (Auto) (units ( unknown) date) Not Reportable unknown) (unknown) (no (unknown) (unknown) Neut % (Auto) (units ( unknown) date) unknown) (unknown) (no (unknown) (unknown) Neutrophils # (units ( unknown) date) (Manual) unknown) (4057-6301) /uL (unknown) (no (unknown) (unknown) Neutrophils # (units ( unknown) date) (Manual) 36940 H unknown) (9543-2667) /uL (unknown) (no (unknown) (unknown) No Action (units (unkn own) date) unknown) (unknown) (no (unknown) (unknown) On parenteral (units ( unknown) date) nutrition unknown) (unknown) (no (unknown) (unknown) Ordered: (units (unkno wn) date) unknown) (unknown) (no (unknown) (unknown) Ordering (units (unkno wn) date) Provider: unknown) Malick Gilmore MD (unknown) (no (unknown) (unknown) Orders (units (unkno wn) date) unknown) (unknown) (no (unknown) (unknown) Oxygen Delivery (units (unknown) date) Method Room Air unknown) 09/25/22 11:49 (unknown) (no (unknown) (unknown) Oxygen Delivery (units (unknown) date) Method Room Air unknown) Room Air (unknown) (no (unknown) (unknown) Oxygen Delivery (units (unknown) date) Method Room Air unknown) (unknown) (no (unknown) (unknown) Oxygen Delivery (units (unknown) date) Method unknown) (unknown) (no (unknown) (unknown) PROCEDURE:? XR (units (unknown) date) CHEST 1V unknown) (unknown) (no (unknown) (unknown) PSYCHIATRIC: No (units (unknown) date) concerning unknown) psychosocial issues. (unknown) (no (unknown) (unknown) PT (10.1-12.7) (units (unknown) date) SECONDS unknown) (unknown) (no (unknown) (unknown) PT 18.4 H (units (unkn own) date) (10.1-12.7) unknown) SECONDS (unknown) (no (unknown) (unknown) Patient (units (unkno wn) date) Comments: unknown) (unknown) (no (unknown) (unknown) Patient History (units (unknown) date) unknown) (unknown) (no (unknown) (unknown) Patient: (units (unkno wn) date) Reg Quintanilla unknown) F MR#: (unknown) (no (unknown) (unknown) Patient: (units (unkno wn) date) Reg Quintanilla unknown) F (unknown) (no (unknown) (unknown) Penicillins (units (un known) date) Allergy Severe unknown) Anaphylaxis Verified 09/25/22 11:49 (unknown) (no (unknown) (unknown) Plt Count (units (unkn own) date) (150-400) X103/uL unknown) (unknown) (no (unknown) (unknown) Plt Count 301 (units ( unknown) date) (150-400) X103/uL unknown) (unknown) (no (unknown) (unknown) Potassium (units (unkn own) date) (3.4-5.1) mmol/L unknown) (unknown) (no (unknown) (unknown) Potassium 3.8 (units ( unknown) date) (3.4-5.1) mmol/L unknown) (unknown) (no (unknown) (unknown) Prescriptions: (units (unknown) date) unknown) (unknown) (no (unknown) (unknown) Procedure: XR (units ( unknown) date) chest 1V unknown) (unknown) (no (unknown) (unknown) Prothrombin Time (units (unknown) date) INR Stat unknown) (unknown) (no (unknown) (unknown) Pulse Oximetry (units (unknown) date) 100 100 unknown) (unknown) (no (unknown) (unknown) Pulse Oximetry (units (unknown) date) 92 94 unknown) (unknown) (no (unknown) (unknown) Pulse Oximetry (units (unknown) date) 92 unknown) (unknown) (no (unknown) (unknown) Pulse Oximetry (units (unknown) date) 93 unknown) (unknown) (no (unknown) (unknown) Pulse Oximetry (units (unknown) date) 94 unknown) (unknown) (no (unknown) (unknown) Pulse Oximetry (units (unknown) date) 96 94 unknown) (unknown) (no (unknown) (unknown) Pulse Oximetry (units (unknown) date) 96 97 unknown) (unknown) (no (unknown) (unknown) Pulse Oximetry (units (unknown) date) 96 unknown) (unknown) (no (unknown) (unknown) Pulse Oximetry (units (unknown) date) 97 94 unknown) (unknown) (no (unknown) (unknown) Pulse Oximetry (units (unknown) date) 97 96 unknown) (unknown) (no (unknown) (unknown) Pulse Oximetry (units (unknown) date) 97 97 unknown) (unknown) (no (unknown) (unknown) Pulse Oximetry (units (unknown) date) 97 99 unknown) (unknown) (no (unknown) (unknown) Pulse Oximetry (units (unknown) date) 97 unknown) (unknown) (no (unknown) (unknown) Pulse Oximetry (units (unknown) date) 98 09/25/22 11:49 unknown) (unknown) (no (unknown) (unknown) Pulse Oximetry (units (unknown) date) 98 97 unknown) (unknown) (no (unknown) (unknown) Pulse Oximetry (units (unknown) date) 98 98 unknown) (unknown) (no (unknown) (unknown) Pulse Oximetry (units (unknown) date) 98 99 98 unknown) (unknown) (no (unknown) (unknown) Pulse Oximetry (units (unknown) date) 98 99 unknown) (unknown) (no (unknown) (unknown) Pulse Oximetry (units (unknown) date) 98 unknown) (unknown) (no (unknown) (unknown) Pulse Oximetry (units (unknown) date) 99 98 unknown) (unknown) (no (unknown) (unknown) Pulse Oximetry (units (unknown) date) 99 unknown) (unknown) (no (unknown) (unknown) Pulse Oximetry (units (unknown) date) unknown) (unknown) (no (unknown) (unknown) Pulse Rate 65 69 (units (unknown) date) unknown) (unknown) (no (unknown) (unknown) Pulse Rate 66 66 (units (unknown) date) unknown) (unknown) (no (unknown) (unknown) Pulse Rate 67 (units ( unknown) date) unknown) (unknown) (no (unknown) (unknown) Pulse Rate 69 (units ( unknown) date) 09/25/22 11:49 unknown) (unknown) (no (unknown) (unknown) Pulse Rate 69 68 (units (unknown) date) 68 unknown) (unknown) (no (unknown) (unknown) Pulse Rate 69 69 (units (unknown) date) unknown) (unknown) (no (unknown) (unknown) Pulse Rate 69 71 (units (unknown) date) unknown) (unknown) (no (unknown) (unknown) Pulse Rate 69 (units ( unknown) date) unknown) (unknown) (no (unknown) (unknown) Pulse Rate 72 75 (units (unknown) date) unknown) (unknown) (no (unknown) (unknown) Pulse Rate 73 74 (units (unknown) date) unknown) (unknown) (no (unknown) (unknown) Pulse Rate 73 (units ( unknown) date) unknown) (unknown) (no (unknown) (unknown) Pulse Rate 74 73 (units (unknown) date) unknown) (unknown) (no (unknown) (unknown) Pulse Rate 74 74 (units (unknown) date) unknown) (unknown) (no (unknown) (unknown) Pulse Rate 74 (units ( unknown) date) unknown) (unknown) (no (unknown) (unknown) Pulse Rate 75 74 (units (unknown) date) unknown) (unknown) (no (unknown) (unknown) Pulse Rate 75 (units ( unknown) date) unknown) (unknown) (no (unknown) (unknown) Pulse Rate 76 76 (units (unknown) date) unknown) (unknown) (no (unknown) (unknown) Pulse Rate 76 (units ( unknown) date) unknown) (unknown) (no (unknown) (unknown) Pulse Rate 77 76 (units (unknown) date) unknown) (unknown) (no (unknown) (unknown) Pulse Rate 77 77 (units (unknown) date) unknown) (unknown) (no (unknown) (unknown) Pulse Rate 77 (units ( unknown) date) unknown) (unknown) (no (unknown) (unknown) RBC (4.0-5.2) (units ( unknown) date) X106/uL unknown) (unknown) (no (unknown) (unknown) RBC 4.05 (units (unkno wn) date) (4.0-5.2) X106/uL unknown) (unknown) (no (unknown) (unknown) RBC Morphology (units (unknown) date) See below unknown) (unknown) (no (unknown) (unknown) RBC Morphology (units (unknown) date) unknown) (unknown) (no (unknown) (unknown) RDW (11.6-14.8) (units (unknown) date) % unknown) (unknown) (no (unknown) (unknown) RDW 17.4 H (units (unk nown) date) (11.6-14.8) % unknown) (unknown) (no (unknown) (unknown) RESPIRATORY: (units (un known) date) Clear to unknown) auscultation. Breath sounds equal bilaterally. No wheezes, (unknown) (no (unknown) (unknown) RESPIRATORY: (units (u nknown) date) Reports shortness unknown) of breath (unknown) (no (unknown) (unknown) RSV (PCR) (units (unkn own) date) (Negative) unknown) (unknown) (no (unknown) (unknown) RSV (PCR) (units (unkn own) date) Negative unknown) (Negative) (unknown) (no (unknown) (unknown) RT Consult Eval (units (unknown) date) and Treat NOW unknown) (unknown) (no (unknown) (unknown) Radiologist's (units ( unknown) date) Impression: unknown) (unknown) (no (unknown) (unknown) Referrals: (units (unk nown) date) unknown) (unknown) (no (unknown) (unknown) Related Data (units (u nknown) date) unknown) (unknown) (no (unknown) (unknown) Respiratory Rate (units (unknown) date) 16 09/25/22 11:49 unknown) (unknown) (no (unknown) (unknown) Respiratory Rate (units (unknown) date) 16 unknown) (unknown) (no (unknown) (unknown) Respiratory Rate (units (unknown) date) 17 16 unknown) (unknown) (no (unknown) (unknown) Respiratory Rate (units (unknown) date) 18 unknown) (unknown) (no (unknown) (unknown) Respiratory Rate (units (unknown) date) 19 unknown) (unknown) (no (unknown) (unknown) Respiratory Rate (units (unknown) date) 20 20 unknown) (unknown) (no (unknown) (unknown) Respiratory Rate (units (unknown) date) 20 26 H unknown) (unknown) (no (unknown) (unknown) Respiratory Rate (units (unknown) date) 21 22 unknown) (unknown) (no (unknown) (unknown) Respiratory Rate (units (unknown) date) 21 unknown) (unknown) (no (unknown) (unknown) Respiratory Rate (units (unknown) date) 22 20 unknown) (unknown) (no (unknown) (unknown) Respiratory Rate (units (unknown) date) 22 23 unknown) (unknown) (no (unknown) (unknown) Respiratory Rate (units (unknown) date) 23 18 unknown) (unknown) (no (unknown) (unknown) Respiratory Rate (units (unknown) date) 23 23 unknown) (unknown) (no (unknown) (unknown) Respiratory Rate (units (unknown) date) 23 25 H unknown) (unknown) (no (unknown) (unknown) Respiratory Rate (units (unknown) date) 23 unknown) (unknown) (no (unknown) (unknown) Respiratory Rate (units (unknown) date) 24 22 unknown) (unknown) (no (unknown) (unknown) Respiratory Rate (units (unknown) date) 24 unknown) (unknown) (no (unknown) (unknown) Respiratory Rate (units (unknown) date) 25 H unknown) (unknown) (no (unknown) (unknown) Respiratory Rate (units (unknown) date) 26 H 24 unknown) (unknown) (no (unknown) (unknown) Respiratory Rate (units (unknown) date) 26 H unknown) (unknown) (no (unknown) (unknown) Respiratory Rate (units (unknown) date) 27 H 25 H unknown) (unknown) (no (unknown) (unknown) Respiratory Rate (units (unknown) date) 27 H unknown) (unknown) (no (unknown) (unknown) Respiratory Rate (units (unknown) date) 31 H unknown) (unknown) (no (unknown) (unknown) Respiratory Rate (units (unknown) date) unknown) (unknown) (no (unknown) (unknown) Review of (units (unkn own) date) Systems unknown) (unknown) (no (unknown) (unknown) SARS-CoV-2 (PCR) (units (unknown) date) (Negative) unknown) (unknown) (no (unknown) (unknown) SARS-CoV-2 (PCR) (units (unknown) date) Negative unknown) (Negative) (unknown) (no (unknown) (unknown) SHAKE LIQUID AND (units (unknown) date) USE 1 SPRAY IN unknown) EACH NOSTRIL TWICE DAILY (unknown) (no (unknown) (unknown) SKIN: Denies (units (u nknown) date) rash, skin unknown) lesions, or other (unknown) (no (unknown) (unknown) SKIN: PICC line (units (unknown) date) in place to right unknown) upper chest, no evidence of any kind of (unknown) (no (unknown) (unknown) Seg Neutrophils (units (unknown) date) % (38-70) % unknown) (unknown) (no (unknown) (unknown) Seg Neutrophils (units (unknown) date) % 51.0 (38-70) % unknown) (unknown) (no (unknown) (unknown) Seizure disorder (units (unknown) date) unknown) (unknown) (no (unknown) (unknown) Shared Decision (units (unknown) date) Making: [ ] unknown) (unknown) (no (unknown) (unknown) She has some (units (u nknown) date) mild chest pain unknown) with deep inspiration. Patient has a history of (unknown) (no (unknown) (unknown) Signed By: (units (unk nown) date) unknown) (unknown) (no (unknown) (unknown) Signed (units (unkno wn) date) unknown) (unknown) (no (unknown) (unknown) Smoking Status: (units (unknown) date) Former smoker unknown) (unknown) (no (unknown) (unknown) Social (units (unkno wn) date) Considerations: [ unknown) ] (unknown) (no (unknown) (unknown) Social History (units (unknown) date) (Reviewed unknown) 06/09/22 @ 13:35 by Madie Polo MD) (unknown) (no (unknown) (unknown) Sodium (137-145) (units (unknown) date) mmol/L unknown) (unknown) (no (unknown) (unknown) Sodium 134 L (units (u nknown) date) (137-145) mmol/L unknown) (unknown) (no (unknown) (unknown) Sodium Chloride (units (unknown) date) (Normal Saline unknown) 0.9%) 1,000 mls @ 1,000 mls/hr IV BOLUS ONE (unknown) (no (unknown) (unknown) Sodium Chloride (units (unknown) date) (Normal Saline unknown) 0.9%) 1,000 mls @ 200 mls/hr IV CONT MY (unknown) (no (unknown) (unknown) Source: patient (units (unknown) date) unknown) (unknown) (no (unknown) (unknown) Stated (units (unkno wn) date) Complaint: asthma unknown) is kicking butt, weak, needs iron (unknown) (no (unknown) (unknown) Stop: 09/25/22 (units (unknown) date) 12:44 unknown) (unknown) (no (unknown) (unknown) Stop: 09/25/22 (units (unknown) date) 13:53 unknown) (unknown) (no (unknown) (unknown) Stop: 09/25/22 (units (unknown) date) 14:17 unknown) (unknown) (no (unknown) (unknown) Stop: 09/25/22 (units (unknown) date) 15:21 unknown) (unknown) (no (unknown) (unknown) Substance Use (units ( unknown) date) Type: does not unknown) use (unknown) (no (unknown) (unknown) Surgical changes (units (unknown) date) and devices:? unknown) Right-sided catheter is present with distal tip (unknown) (no (unknown) (unknown) TAKE 1 CAPSULE (units (unknown) date) BY MOUTH EVERY unknown) DAY (unknown) (no (unknown) (unknown) TAKE 1 TABLET BY (units (unknown) date) MOUTH AT BEDTIME unknown) (unknown) (no (unknown) (unknown) TAKE 1 TABLET BY (units (unknown) date) MOUTH EVERY DAY unknown) (unknown) (no (unknown) (unknown) TAKE 1 TABLET BY (units (unknown) date) MOUTH FOUR TIMES unknown) DAILY NEEDED (unknown) (no (unknown) (unknown) TAKE 2 TABLETS (units (unknown) date) BY MOUTH AT unknown) BEDTIME (unknown) (no (unknown) (unknown) TAKE 2 TABLETS (units (unknown) date) BY MOUTH THREE unknown) TIMES DAILY NEEDED (unknown) (no (unknown) (unknown) TECHNIQUE:? One (units (unknown) date) view of the chest unknown) was acquired.? (unknown) (no (unknown) (unknown) Temperature 97.4 (units (unknown) date) F L 09/25/22 unknown) 11:49 (unknown) (no (unknown) (unknown) Temperature 97.4 (units (unknown) date) F L unknown) (unknown) (no (unknown) (unknown) Temperature (units (un known) date) unknown) (unknown) (no (unknown) (unknown) This is a (units (unkno wn) date) 52-year-old unknown) female presents to the emergency department complaining of (unknown) (no (unknown) (unknown) Time Seen by (units (u nknown) date) Provider: unknown) 09/25/22 12:33 (unknown) (no (unknown) (unknown) Total Bilirubin (units (unknown) date) (0.2-1.3) mg/dL unknown) (unknown) (no (unknown) (unknown) Total Bilirubin (units (unknown) date) 0.5 (0.2-1.3) unknown) mg/dL (unknown) (no (unknown) (unknown) Total Counted (units ( unknown) date) 100 unknown) (unknown) (no (unknown) (unknown) Total Counted (units ( unknown) date) unknown) (unknown) (no (unknown) (unknown) Total Protein (units ( unknown) date) (6.3-8.2) g/dL unknown) (unknown) (no (unknown) (unknown) Total Protein (units ( unknown) date) 7.0 (6.3-8.2) unknown) g/dL (unknown) (no (unknown) (unknown) Troponin I < (units (u nknown) date) 0.012 unknown) (0.01-0.034) ng/mL (unknown) (no (unknown) (unknown) Troponin I (units (unk nown) date) (0.01-0.034) unknown) ng/mL (unknown) (no (unknown) (unknown) Troponin I Stat (units (unknown) date) unknown) (unknown) (no (unknown) (unknown) USE 2 PUFFS BY (units (unknown) date) MOUTH EVERY 4-6 unknown) HOURS. (unknown) (no (unknown) (unknown) Urinalysis and (units (unknown) date) Microscopic Stat unknown) (unknown) (no (unknown) (unknown) Vital Signs - 8 (units (unknown) date) hr unknown) (unknown) (no (unknown) (unknown) Vital Signs (units (un known) date) unknown) (unknown) (no (unknown) (unknown) Vital signs: (units (u nknown) date) unknown) (unknown) (no (unknown) (unknown) WBC (4.5-11.0) (units (unknown) date) X103/uL unknown) (unknown) (no (unknown) (unknown) WBC 13.9 H (units (unk nown) date) (4.5-11.0) unknown) X103/uL (unknown) (no (unknown) (unknown) XR chest 1V Stat (units (unknown) date) unknown) (unknown) (no (unknown) (unknown) XRay Report (units (un known) date) unknown) (unknown) (no (unknown) (unknown) Shaneka García, (units (unknown) date) MD [Primary Care unknown) Provider] (unknown) (no (unknown) (unknown) [Embedded Image (units (unknown) date) Not Available] unknown) (unknown) (no (unknown) (unknown) aerosol inhaler (units (unknown) date) Shortness Of unknown) Breath (unknown) (no (unknown) (unknown) albuterol (units (unkn own) date) sulfate 90 unknown) mcg/actuation 2 puff inhalation Q4HR PRN 01/10/22 04/30/22 (unknown) (no (unknown) (unknown) albuterol (units (unkn own) date) sulfate 90 unknown) mcg/actuation HFA aerosol inhaler (unknown) (no (unknown) (unknown) alcohol intake: (units (unknown) date) never unknown) (unknown) (no (unknown) (unknown) and on TPN. (units (un known) date) Chronically unknown) anemic. (unknown) (no (unknown) (unknown) appear (units (unkno wn) date) unknown) (unknown) (no (unknown) (unknown) asthma and has (units (unknown) date) been using her unknown) albuterol inhaler as prescribed without (unknown) (no (unknown) (unknown) baclofen 10 mg (units (unknown) date) tablet 1 tab PO unknown) QID 01/10/22 04/30/22 (unknown) (no (unknown) (unknown) baclofen 10 mg (units (unknown) date) tablet unknown) (unknown) (no (unknown) (unknown) cetirizine 10 mg (units (unknown) date) tablet 1 tab PO unknown) BEDTIME 01/10/22 04/30/22 (unknown) (no (unknown) (unknown) cetirizine 10 mg (units (unknown) date) tablet unknown) (unknown) (no (unknown) (unknown) chlorhexidine (units ( unknown) date) Allergy unknown) Intermediate Rash Verified 09/25/22 11:49 (unknown) (no (unknown) (unknown) constipation, (units ( unknown) date) melena. unknown) (unknown) (no (unknown) (unknown) degree (units (unkno wn) date) unknown) (unknown) (no (unknown) (unknown) device (units (unkno wn) date) unknown) (unknown) (no (unknown) (unknown) dextroamphetamin (units (unknown) date) e-amphetamine 20 unknown) 1 tab 1XD 05/02/22 05/02/22 (unknown) (no (unknown) (unknown) dextroamphetamin (units (unknown) date) e-amphetamine 20 unknown) mg tablet (unknown) (no (unknown) (unknown) dizziness. (units (unk nown) date) unknown) (unknown) (no (unknown) (unknown) duloxetine 60 mg (units (unknown) date) capsule,delayed 1 unknown) cap PO DAILY 01/10/22 04/30/22 (unknown) (no (unknown) (unknown) duloxetine 60 mg (units (unknown) date) capsule,delayed unknown) release(DR/EC) (unknown) (no (unknown) (unknown) erythema (units (unkno wn) date) surrounding unknown) (unknown) (no (unknown) (unknown) fevers, (units (unkno wn) date) abdominal pain, unknown) significant chest pain, headaches, slurred speech, (unknown) (no (unknown) (unknown) fluticasone 250 (units (unknown) date) mcg-salmeterol 50 unknown) 1 ea inhalation BID 01/10/22 04/30/22 (unknown) (no (unknown) (unknown) fluticasone (units (un known) date) propion-salmetero unknown) l [[facility]] 250-50 mcg/dose blister with (unknown) (no (unknown) (unknown) fluticasone (units (un known) date) propionate 50 1 unknown) ea intranasal BID 01/10/22 04/30/22 (unknown) (no (unknown) (unknown) fluticasone (units (un known) date) propionate 50 unknown) mcg/actuation spray,suspension (unknown) (no (unknown) (unknown) history of (units (unk nown) date) candidal sepsis. unknown) Also has a history of seizures, opiate addiction, (unknown) (no (unknown) (unknown) household (units (unkn own) date) members: none unknown) (unknown) (no (unknown) (unknown) hydroxyzine HCl (units (unknown) date) 50 mg tablet 2 unknown) tab PO TID 01/10/22 04/30/22 (unknown) (no (unknown) (unknown) hydroxyzine HCl (units (unknown) date) 50 mg tablet unknown) (unknown) (no (unknown) (unknown) icterus. No (units (un known) date) injection or unknown) drainage. (unknown) (no (unknown) (unknown) infusion of (units (un known) date) fluconazole with unknown) plans to get the PICC in the next day.. Has a (unknown) (no (unknown) (unknown) inhalation (units (unk nown) date) ([facility]) unknown) (unknown) (no (unknown) (unknown) lamotrigine 200 (units (unknown) date) mg tablet 2 tab unknown) PO BEDTIME 01/10/22 04/30/22 (unknown) (no (unknown) (unknown) lamotrigine 200 (units (unknown) date) mg tablet unknown) (unknown) (no (unknown) (unknown) lidocaine (units (unkn own) date) AdvReac unknown) Intermediate Verified 09/25/22 11:49 (unknown) (no (unknown) (unknown) mcg/actuation (units ( unknown) date) nasal unknown) (unknown) (no (unknown) (unknown) mcg/dose blistr (units (unknown) date) powdr for unknown) (unknown) (no (unknown) (unknown) meloxicam 15 mg (units (unknown) date) tablet 1 tab unknown) DAILY 01/10/22 04/30/22 (unknown) (no (unknown) (unknown) meloxicam 15 mg (units (unknown) date) tablet unknown) (unknown) (no (unknown) (unknown) mg tablet (units (unkn own) date) unknown) (unknown) (no (unknown) (unknown) not recall any (units (unknown) date) specific event unknown) that caused the worsening shortness of breath. (unknown) (no (unknown) (unknown) over the mid (units (u nknown) date) SVC. unknown) (unknown) (no (unknown) (unknown) pain with (units (unkn own) date) palpation of the unknown) chest (unknown) (no (unknown) (unknown) projecting (units (unk nown) date) unknown) (unknown) (no (unknown) (unknown) rales, or (units (unkn own) date) rhonchi. unknown) (unknown) (no (unknown) (unknown) release (units (unkno wn) date) unknown) (unknown) (no (unknown) (unknown) seizures, (units (unkn own) date) incoordination. unknown) (unknown) (no (unknown) (unknown) significant (units (un known) date) relief causing unknown) her come in. She denies any nausea, vomiting, (unknown) (no (unknown) (unknown) spray,suspension (units (unknown) date) unknown) (unknown) (no (unknown) (unknown) tonsillar (units (unkn own) date) hypertrophy or unknown) exudate. Airway patent. (unknown) (no (unknown) (unknown) tox [Urine Drug (units (unknown) date) Screen, Rapid] unknown) Stat (unknown) (no (unknown) (unknown) unremarkable.? (units (unknown) date) unknown) (unknown) (no (unknown) (unknown) vancomycin (units (unk nown) date) AdvReac Verified unknown) 09/25/22 11:49 (unknown) (no (unknown) (unknown) weakness, or any (units (unknown) date) other concerning unknown) signs or symptoms. (unknown) (no (unknown) (unknown) within the left (units (unknown) date) upper lobe. unknown) (unknown) (no (unknown) (unknown) worsening acute (units (unknown) date) on chronic unknown) shortness of breath onset 2 days ago. Patient does Result panel 231 (unknown) (no (unknown) (unknown) (no value) (units (unk nown) date) unknown) (unknown) (no (unknown) (unknown) * Clinical (units (unk nown) date) Decision unknown) Rules/Scores evaluated: [ ] (unknown) (no (unknown) (unknown) * Independent (units ( unknown) date) discussions with: unknown) [ ] (unknown) (no (unknown) (unknown) * My imgaing (units (u nknown) date) interpretation: [ unknown) ] (unknown) (no (unknown) (unknown) * My lab (units (unkno wn) date) interpretation: [ unknown) ] (unknown) (no (unknown) (unknown) * Prior records (units (unknown) date) reviewed: Patient unknown) was last seen here 4 months ago for an IV (unknown) (no (unknown) (unknown) * differential (units (unknown) date) diagnosis unknown) includes but not limited to [ ] (unknown) (no (unknown) (unknown) 09/25/22 (units (unkno wn) date) 09/25/22 09/25/22 unknown) Range/Units (unknown) (no (unknown) (unknown) 09/25/22 11:54 (units (unknown) date) unknown) (unknown) (no (unknown) (unknown) 09/25/22 11:55 (units (unknown) date) unknown) (unknown) (no (unknown) (unknown) 09/25/22 12:12 (units (unknown) date) unknown) (unknown) (no (unknown) (unknown) 09/25/22 12:14 (units (unknown) date) unknown) (unknown) (no (unknown) (unknown) 09/25/22 12:28 (units (unknown) date) unknown) (unknown) (no (unknown) (unknown) 09/25/22 12:36 (units (unknown) date) unknown) (unknown) (no (unknown) (unknown) 09/25/22 12:44 (units (unknown) date) unknown) (unknown) (no (unknown) (unknown) 09/25/22 13:11 (units (unknown) date) unknown) (unknown) (no (unknown) (unknown) 09/25/22 14:01 (units (unknown) date) unknown) (unknown) (no (unknown) (unknown) 09/25/22 (units (unkno wn) date) Range/Units unknown) (unknown) (no (unknown) (unknown) 09/25/22 (units (unkno wn) date) unknown) (unknown) (no (unknown) (unknown) 1 cap PO DAILY (units (unknown) date) unknown) (unknown) (no (unknown) (unknown) 1 ea INHALATION (units (unknown) date) BID unknown) (unknown) (no (unknown) (unknown) 1 ea INTRANASAL (units (unknown) date) BID unknown) (unknown) (no (unknown) (unknown) 1 tab 1XD (units (unkn own) date) unknown) (unknown) (no (unknown) (unknown) 1 tab DAILY (units (un known) date) unknown) (unknown) (no (unknown) (unknown) 1 tab PO BEDTIME (units (unknown) date) unknown) (unknown) (no (unknown) (unknown) 1 tab PO QID (units (u nknown) date) unknown) (unknown) (no (unknown) (unknown) 11:49 09/25/22 (units (unknown) date) unknown) (unknown) (no (unknown) (unknown) 11:55 12:28 (units (un known) date) 12:28 unknown) (unknown) (no (unknown) (unknown) 12 point review (units (unknown) date) of systems is unknown) negative except for those stated above (unknown) (no (unknown) (unknown) [address] [place] (units (unknown) date) unknown) (unknown) (no (unknown) (unknown) 12:12 09/25/22 (units (unknown) date) unknown) (unknown) (no (unknown) (unknown) 12:13 09/25/22 (units (unknown) date) unknown) (unknown) (no (unknown) (unknown) 12:13 (units (unkno wn) date) unknown) (unknown) (no (unknown) (unknown) 12:15 09/25/22 (units (unknown) date) unknown) (unknown) (no (unknown) (unknown) 12:27 09/25/22 (units (unknown) date) unknown) (unknown) (no (unknown) (unknown) 12:27 (units (unkno wn) date) unknown) (unknown) (no (unknown) (unknown) 12:28 12:28 (units (un known) date) 12:44 unknown) (unknown) (no (unknown) (unknown) 12:30 09/25/22 (units (unknown) date) unknown) (unknown) (no (unknown) (unknown) 12:31 09/25/22 (units (unknown) date) unknown) (unknown) (no (unknown) (unknown) 12:31 (units (unkno wn) date) unknown) (unknown) (no (unknown) (unknown) 12:45 09/25/22 (units (unknown) date) unknown) (unknown) (no (unknown) (unknown) 12:45 (units (unkno wn) date) unknown) (unknown) (no (unknown) (unknown) 12:50 09/25/22 (units (unknown) date) unknown) (unknown) (no (unknown) (unknown) 13:00 09/25/22 (units (unknown) date) unknown) (unknown) (no (unknown) (unknown) 13:00 (units (unkno wn) date) unknown) (unknown) (no (unknown) (unknown) 13:10 09/25/22 (units (unknown) date) unknown) (unknown) (no (unknown) (unknown) 13:15 09/25/22 (units (unknown) date) unknown) (unknown) (no (unknown) (unknown) 13:15 (units (unkno wn) date) unknown) (unknown) (no (unknown) (unknown) 13:20 09/25/22 (units (unknown) date) unknown) (unknown) (no (unknown) (unknown) 13:20 (units (unkno wn) date) unknown) (unknown) (no (unknown) (unknown) 13:25 09/25/22 (units (unknown) date) unknown) (unknown) (no (unknown) (unknown) 13:30 09/25/22 (units (unknown) date) unknown) (unknown) (no (unknown) (unknown) 13:30 (units (unkno wn) date) unknown) (unknown) (no (unknown) (unknown) 13:35 09/25/22 (units (unknown) date) unknown) (unknown) (no (unknown) (unknown) 13:35 (units (unkno wn) date) unknown) (unknown) (no (unknown) (unknown) 13:40 09/25/22 (units (unknown) date) unknown) (unknown) (no (unknown) (unknown) 13:49 (units (unkno wn) date) unknown) (unknown) (no (unknown) (unknown) 13:50 09/25/22 (units (unknown) date) unknown) (unknown) (no (unknown) (unknown) 13:55 09/25/22 (units (unknown) date) unknown) (unknown) (no (unknown) (unknown) 13:55 (units (unkno wn) date) unknown) (unknown) (no (unknown) (unknown) 14:00 09/25/22 (units (unknown) date) unknown) (unknown) (no (unknown) (unknown) 14:00 (units (unkno wn) date) unknown) (unknown) (no (unknown) (unknown) 14:05 09/25/22 (units (unknown) date) unknown) (unknown) (no (unknown) (unknown) 14:10 09/25/22 (units (unknown) date) unknown) (unknown) (no (unknown) (unknown) 14:10 (units (unkno wn) date) unknown) (unknown) (no (unknown) (unknown) 14:25 09/25/22 (units (unknown) date) unknown) (unknown) (no (unknown) (unknown) 14:25 (units (unkno wn) date) unknown) (unknown) (no (unknown) (unknown) 14:30 09/25/22 (units (unknown) date) unknown) (unknown) (no (unknown) (unknown) 14:35 09/25/22 (units (unknown) date) unknown) (unknown) (no (unknown) (unknown) 14:35 (units (unkno wn) date) unknown) (unknown) (no (unknown) (unknown) 14:40 09/25/22 (units (unknown) date) unknown) (unknown) (no (unknown) (unknown) 14:40 (units (unkno wn) date) unknown) (unknown) (no (unknown) (unknown) 14:45 09/25/22 (units (unknown) date) unknown) (unknown) (no (unknown) (unknown) 14:50 09/25/22 (units (unknown) date) unknown) (unknown) (no (unknown) (unknown) 14:50 (units (unkno wn) date) unknown) (unknown) (no (unknown) (unknown) 14:55 09/25/22 (units (unknown) date) unknown) (unknown) (no (unknown) (unknown) 14:55 (units (unkno wn) date) unknown) (unknown) (no (unknown) (unknown) 15:00 09/25/22 (units (unknown) date) unknown) (unknown) (no (unknown) (unknown) 15:05 09/25/22 (units (unknown) date) unknown) (unknown) (no (unknown) (unknown) 15:05 (units (unkno wn) date) unknown) (unknown) (no (unknown) (unknown) 15:10 09/25/22 (units (unknown) date) unknown) (unknown) (no (unknown) (unknown) 15:10 (units (unkno wn) date) unknown) (unknown) (no (unknown) (unknown) 15:15 09/25/22 (units (unknown) date) unknown) (unknown) (no (unknown) (unknown) 15:20 09/25/22 (units (unknown) date) unknown) (unknown) (no (unknown) (unknown) 15:20 (units (unkno wn) date) unknown) (unknown) (no (unknown) (unknown) 15:25 09/25/22 (units (unknown) date) unknown) (unknown) (no (unknown) (unknown) 15:25 (units (unkno wn) date) unknown) (unknown) (no (unknown) (unknown) 15:30 09/25/22 (units (unknown) date) unknown) (unknown) (no (unknown) (unknown) 15:35 09/25/22 (units (unknown) date) unknown) (unknown) (no (unknown) (unknown) 15:35 (units (unkno wn) date) unknown) (unknown) (no (unknown) (unknown) 15:40 09/25/22 (units (unknown) date) unknown) (unknown) (no (unknown) (unknown) 15:40 (units (unkno wn) date) unknown) (unknown) (no (unknown) (unknown) 15:45 09/25/22 (units (unknown) date) unknown) (unknown) (no (unknown) (unknown) 15:50 09/25/22 (units (unknown) date) unknown) (unknown) (no (unknown) (unknown) 15:50 (units (unkno wn) date) unknown) (unknown) (no (unknown) (unknown) 15:55 09/25/22 (units (unknown) date) unknown) (unknown) (no (unknown) (unknown) 15:55 (units (unkno wn) date) unknown) (unknown) (no (unknown) (unknown) 16:00 09/25/22 (units (unknown) date) unknown) (unknown) (no (unknown) (unknown) 16:05 09/25/22 (units (unknown) date) unknown) (unknown) (no (unknown) (unknown) 16:05 (units (unkno wn) date) unknown) (unknown) (no (unknown) (unknown) 16:10 09/25/22 (units (unknown) date) unknown) (unknown) (no (unknown) (unknown) 16:10 (units (unkno wn) date) unknown) (unknown) (no (unknown) (unknown) 16:13 09/25/22 (units (unknown) date) unknown) (unknown) (no (unknown) (unknown) 16:15 09/25/22 (units (unknown) date) unknown) (unknown) (no (unknown) (unknown) 16:15 (units (unkno wn) date) unknown) (unknown) (no (unknown) (unknown) 16:20 09/25/22 (units (unknown) date) unknown) (unknown) (no (unknown) (unknown) 16:20 (units (unkno wn) date) unknown) (unknown) (no (unknown) (unknown) 16:25 09/25/22 (units (unknown) date) unknown) (unknown) (no (unknown) (unknown) 16:30 09/25/22 (units (unknown) date) unknown) (unknown) (no (unknown) (unknown) 16:30 (units (unkno wn) date) unknown) (unknown) (no (unknown) (unknown) 16:35 09/25/22 (units (unknown) date) unknown) (unknown) (no (unknown) (unknown) 16:35 (units (unkno wn) date) unknown) (unknown) (no (unknown) (unknown) 16:40 09/25/22 (units (unknown) date) unknown) (unknown) (no (unknown) (unknown) 16:45 09/25/22 (units (unknown) date) unknown) (unknown) (no (unknown) (unknown) 16:45 (units (unkno wn) date) unknown) (unknown) (no (unknown) (unknown) 16:50 09/25/22 (units (unknown) date) unknown) (unknown) (no (unknown) (unknown) 16:50 (units (unkno wn) date) unknown) (unknown) (no (unknown) (unknown) 16:55 09/25/22 (units (unknown) date) unknown) (unknown) (no (unknown) (unknown) 17:00 (units (unkno wn) date) unknown) (unknown) (no (unknown) (unknown) 2 puff (units (unkno wn) date) INHALATION Q4HR unknown) PRN (Reason: Shortness Of Breath) (unknown) (no (unknown) (unknown) 2 tab PO BEDTIME (units (unknown) date) unknown) (unknown) (no (unknown) (unknown) 2 tab PO TID (units (u nknown) date) unknown) (unknown) (no (unknown) (unknown) ? (units (unkno wn) date) unknown) (unknown) (no (unknown) (unknown) ALT (<35) IU/L (units (unknown) date) unknown) (unknown) (no (unknown) (unknown) ALT 25 (<35) (units (u nknown) date) IU/L unknown) (unknown) (no (unknown) (unknown) AST (14-36) IU/L (units (unknown) date) unknown) (unknown) (no (unknown) (unknown) AST 44 H (14-36) (units (unknown) date) IU/L unknown) (unknown) (no (unknown) (unknown) Accession (units (unkn own) date) Number: unknown) [id number] ?? (unknown) (no (unknown) (unknown) Acct:[id number] (units (unknown) date) unknown) (unknown) (no (unknown) (unknown) Addiction, opium (units (unknown) date) unknown) (unknown) (no (unknown) (unknown) Admin: 09/25/22 (units (unknown) date) 13:19 Dose: 1,000 unknown) mls/hr (unknown) (no (unknown) (unknown) Admin: 09/25/22 (units (unknown) date) 14:46 Dose: 200 unknown) mls/hr (unknown) (no (unknown) (unknown) Age/Sex: 52 / F (units (unknown) date) unknown) (unknown) (no (unknown) (unknown) Albumin (units (unkno wn) date) (3.5-5.0) g/dL unknown) (unknown) (no (unknown) (unknown) Albumin 3.0 L (units ( unknown) date) (3.5-5.0) g/dL unknown) (unknown) (no (unknown) (unknown) Albumin/Globulin (units (unknown) date) Ratio (1.0-2.8) unknown) (unknown) (no (unknown) (unknown) Albumin/Globulin (units (unknown) date) Ratio 0.8 L unknown) (1.0-2.8) (unknown) (no (unknown) (unknown) Albuterol/Ipratr (units (unknown) date) opium unknown) (Albuterol/Ipratr opium 3 Ml Ampul) 6 ml INH NOW ONE (unknown) (no (unknown) (unknown) Alkaline (units (unkno wn) date) Phosphatase unknown) (38-126) U/L (unknown) (no (unknown) (unknown) Alkaline (units (unkno wn) date) Phosphatase 203 H unknown) (38-126) U/L (unknown) (no (unknown) (unknown) Allergies (units (unkn own) date) unknown) (unknown) (no (unknown) (unknown) Allergy/AdvReac (units (unknown) date) Type Severity unknown) Reaction Status Date / Time (unknown) (no (unknown) (unknown) [place], [place] (units ( unknown) date) [address] unknown) (unknown) (no (unknown) (unknown) Anisocytosis 1+ (units (unknown) date) H unknown) (unknown) (no (unknown) (unknown) Anisocytosis (units (u nknown) date) unknown) (unknown) (no (unknown) (unknown) Approved by: (units (u nknown) date) kishor Telles M.D. on 09/25/2022 at 13:13 ? (unknown) (no (unknown) (unknown) BACK: Nontender (units (unknown) date) without deformity unknown) or crepitance. No flank tenderness. (unknown) (no (unknown) (unknown) BUN (7-17) mg/dL (units (unknown) date) unknown) (unknown) (no (unknown) (unknown) BUN 44 H (7-17) (units (unknown) date) mg/dL unknown) (unknown) (no (unknown) (unknown) BUN/Creatinine (units (unknown) date) Ratio (6-22) unknown) (unknown) (no (unknown) (unknown) BUN/Creatinine (units (unknown) date) Ratio 49.4 H unknown) (6-22) (unknown) (no (unknown) (unknown) Band Neutrophils (units (unknown) date) % (3-7) % unknown) (unknown) (no (unknown) (unknown) Band Neutrophils (units (unknown) date) % 28.0 H (3-7) % unknown) (unknown) (no (unknown) (unknown) Baso # (Auto) (units ( unknown) date) Not Reportable unknown) (unknown) (no (unknown) (unknown) Baso # (Auto) (units ( unknown) date) unknown) (unknown) (no (unknown) (unknown) Baso % (Auto) (units ( unknown) date) Not Reportable unknown) (unknown) (no (unknown) (unknown) Baso % (Auto) (units ( unknown) date) unknown) (unknown) (no (unknown) (unknown) Basophils % (units (un known) date) (Manual) (0-1) % unknown) (unknown) (no (unknown) (unknown) Basophils % (units (un known) date) (Manual) 1.0 unknown) (0-1) % (unknown) (no (unknown) (unknown) Blood Culture (units ( unknown) date) Stat unknown) (unknown) (no (unknown) (unknown) Blood Pressure (units (unknown) date) 82/51 L 83/52 L unknown) (unknown) (no (unknown) (unknown) Blood Pressure (units (unknown) date) 83/50 L unknown) (unknown) (no (unknown) (unknown) Blood Pressure (units (unknown) date) 83/52 L unknown) (unknown) (no (unknown) (unknown) Blood Pressure (units (unknown) date) 84/53 L unknown) (unknown) (no (unknown) (unknown) Blood Pressure (units (unknown) date) 85/54 L 87/55 L unknown) (unknown) (no (unknown) (unknown) Blood Pressure (units (unknown) date) 85/54 L unknown) (unknown) (no (unknown) (unknown) Blood Pressure (units (unknown) date) 86/54 L 84/52 L unknown) (unknown) (no (unknown) (unknown) Blood Pressure (units (unknown) date) 87/51 L unknown) (unknown) (no (unknown) (unknown) Blood Pressure (units (unknown) date) 87/52 L unknown) (unknown) (no (unknown) (unknown) Blood Pressure (units (unknown) date) 88/50 L unknown) (unknown) (no (unknown) (unknown) Blood Pressure (units (unknown) date) 88/53 L unknown) (unknown) (no (unknown) (unknown) Blood Pressure (units (unknown) date) 88/55 L unknown) (unknown) (no (unknown) (unknown) Blood Pressure (units (unknown) date) 89/53 L unknown) (unknown) (no (unknown) (unknown) Blood Pressure (units (unknown) date) 89/55 L unknown) (unknown) (no (unknown) (unknown) Blood Pressure (units (unknown) date) 90/54 L 86/53 L unknown) (unknown) (no (unknown) (unknown) Blood Pressure (units (unknown) date) 91/50 L 90/52 L unknown) (unknown) (no (unknown) (unknown) Blood Pressure (units (unknown) date) 91/50 L 94/52 L unknown) (unknown) (no (unknown) (unknown) Blood Pressure (units (unknown) date) 91/51 L 85/53 L unknown) (unknown) (no (unknown) (unknown) Blood Pressure (units (unknown) date) 91/52 L 89/50 L unknown) (unknown) (no (unknown) (unknown) Blood Pressure (units (unknown) date) 91/53 L 92/52 L unknown) (unknown) (no (unknown) (unknown) Blood Pressure (units (unknown) date) 91/54 L 87/51 L unknown) (unknown) (no (unknown) (unknown) Blood Pressure (units (unknown) date) 92/50 L 87/52 L unknown) (unknown) (no (unknown) (unknown) Blood Pressure (units (unknown) date) 92/53 L unknown) (unknown) (no (unknown) (unknown) Blood Pressure (units (unknown) date) 93/52 L 85/47 L unknown) (unknown) (no (unknown) (unknown) Blood Pressure (units (unknown) date) 93/54 L unknown) (unknown) (no (unknown) (unknown) Blood Pressure (units (unknown) date) 93/55 L 89/51 L unknown) (unknown) (no (unknown) (unknown) Blood Pressure (units (unknown) date) 94/50 L unknown) (unknown) (no (unknown) (unknown) Blood Pressure (units (unknown) date) 94/54 L 99/52 L unknown) (unknown) (no (unknown) (unknown) Blood Pressure (units (unknown) date) 95/52 L 90/55 L unknown) (unknown) (no (unknown) (unknown) Blood Pressure (units (unknown) date) 95/52 L unknown) (unknown) (no (unknown) (unknown) Blood Pressure (units (unknown) date) 95/54 L unknown) (unknown) (no (unknown) (unknown) Blood Pressure (units (unknown) date) 96/60 09/25/22 unknown) 11:49 (unknown) (no (unknown) (unknown) Blood Pressure (units (unknown) date) 96/60 85/52 L unknown) (unknown) (no (unknown) (unknown) Blood Pressure (units (unknown) date) 97/52 L unknown) (unknown) (no (unknown) (unknown) Blood Pressure (units (unknown) date) 99/57 L 95/53 L unknown) (unknown) (no (unknown) (unknown) Blood Pressure (units (unknown) date) unknown) (unknown) (no (unknown) (unknown) Bones and chest (units (unknown) date) wall:? No unknown) suspicious bony lesions.? Overlying soft tissues (unknown) (no (unknown) (unknown) CARDIOVASCULAR: (units (unknown) date) Denies chest unknown) pain, palpitations, orthopnea, edema, (unknown) (no (unknown) (unknown) CARDIOVASCULAR: (units (unknown) date) Regular rate and unknown) rhythm without murmurs, gallops, or rubs. Mild (unknown) (no (unknown) (unknown) COMPARISON:? (units (u nknown) date) [facility], unknown) CR, XR CHEST 2V, 06/04/2022, 12:38. (unknown) (no (unknown) (unknown) CT angio chest (units (unknown) date) PE protocol Stat unknown) (unknown) (no (unknown) (unknown) Cachexia (units (unkno wn) date) unknown) (unknown) (no (unknown) (unknown) Calcium (units (unkno wn) date) (8.4-10.2) mg/dL unknown) (unknown) (no (unknown) (unknown) Calcium 8.4 (units (un known) date) (8.4-10.2) mg/dL unknown) (unknown) (no (unknown) (unknown) Carbon Dioxide (units (unknown) date) (22-32) mmol/L unknown) (unknown) (no (unknown) (unknown) Carbon Dioxide (units (unknown) date) 22 (22-32) mmol/L unknown) (unknown) (no (unknown) (unknown) Chest x-ray: (units (u nknown) date) unknown) (unknown) (no (unknown) (unknown) Chief Complaint: (units (unknown) date) Upper Respiratory unknown) Symptoms (unknown) (no (unknown) (unknown) Chloride (units (unkno wn) date) (98-107) mmol/L unknown) (unknown) (no (unknown) (unknown) Chloride 98 (units (un known) date) (98-107) mmol/L unknown) (unknown) (no (unknown) (unknown) Complete Blood (units (unknown) date) Count AUTO DIFF unknown) Stat (unknown) (no (unknown) (unknown) Comprehensive (units ( unknown) date) Metabolic Panel unknown) Stat (unknown) (no (unknown) (unknown) Course (units (unkno wn) date) unknown) (unknown) (no (unknown) (unknown) Covid-19 + FLU (units (unknown) date) A/B + RSV - PCR unknown) Stat (unknown) (no (unknown) (unknown) Creatinine (units (unk nown) date) (0.52-1.04) mg/dL unknown) (unknown) (no (unknown) (unknown) Creatinine 0.89 (units (unknown) date) (0.52-1.04) mg/dL unknown) (unknown) (no (unknown) (unknown) D Dimer Stat (units (u nknown) date) unknown) (unknown) (no (unknown) (unknown) D-Dimer (<500) (units (unknown) date) ng/ml unknown) (unknown) (no (unknown) (unknown) D-Dimer 3576 H (units (unknown) date) (<500) ng/ml unknown) (unknown) (no (unknown) (unknown) : 1970 (units (unknown) date) Acct:[id number] unknown) (unknown) (no (unknown) (unknown) : 1970 (units (unknown) date) unknown) (unknown) (no (unknown) (unknown) Date of Service: (units (unknown) date) 09/25/22 unknown) (unknown) (no (unknown) (unknown) Departure (units (unkn own) date) unknown) (unknown) (no (unknown) (unknown) Dictated by: (units (u nknown) date) kishor Telles M.D. on 09/25/2022 at 13:12 ? ? (unknown) (no (unknown) (unknown) Discharge Plan (units (unknown) date) unknown) (unknown) (no (unknown) (unknown) Discontinued (units (u nknown) date) Medications unknown) (unknown) (no (unknown) (unknown) Disposition: [ ] (units (unknown) date) unknown) (unknown) (no (unknown) (unknown) Documented By: (units (unknown) date) JZF unknown) (unknown) (no (unknown) (unknown) Documented By: (units (unknown) date) NR unknown) (unknown) (no (unknown) (unknown) Documented By: (units (unknown) date) RB unknown) (unknown) (no (unknown) (unknown) ED Course: [ ] (units (unknown) date) unknown) (unknown) (no (unknown) (unknown) ED Orders (units (unkn own) date) unknown) (unknown) (no (unknown) (unknown) EKG-12 Lead Stat (units (unknown) date) unknown) (unknown) (no (unknown) (unknown) ENT: Nose (units (unkn own) date) without bleeding, unknown) purulent drainage. Throat without erythema, (unknown) (no (unknown) (unknown) ER Physician: (units ( unknown) date) Bethel Flynn P.A-C unknown) (unknown) (no (unknown) (unknown) EXTREMITIES: No (units (unknown) date) edema or joint unknown) tenderness. (unknown) (no (unknown) (unknown) EYES: Pupils (units (u nknown) date) equal round and unknown) reactive. Extraocular motions intact. No scleral (unknown) (no (unknown) (unknown) Emergency Report (units (unknown) date) unknown) (unknown) (no (unknown) (unknown) Eos % (Auto) Not (units (unknown) date) Reportable unknown) (unknown) (no (unknown) (unknown) Eos % (Auto) (units (u nknown) date) unknown) (unknown) (no (unknown) (unknown) Estimated GFR > (units (unknown) date) 60 (>60) mL/min unknown) (unknown) (no (unknown) (unknown) Estimated GFR (units ( unknown) date) (>60) mL/min unknown) (unknown) (no (unknown) (unknown) Exam Narrative: (units (unknown) date) unknown) (unknown) (no (unknown) (unknown) Exam (units (unkno wn) date) unknown) (unknown) (no (unknown) (unknown) FINDINGS:? (units (unk nown) date) unknown) (unknown) (no (unknown) (unknown) GASTROINTESTINAL (units (unknown) date) : Abdomen soft, unknown) non-tender, nondistended. (unknown) (no (unknown) (unknown) GASTROINTESTINAL (units (unknown) date) : Denies nausea, unknown) vomiting, abdominal pain, diarrhea, (unknown) (no (unknown) (unknown) GENERAL: Denies (units (unknown) date) chills, fatigue, unknown) malaise, fever, sweats. (unknown) (no (unknown) (unknown) GENERAL: (units (o wn) date) Well-developed unknown) patient, in mild distress. (unknown) (no (unknown) (unknown) : Denies (units (unk nown) date) dysuria, unknown) frequency, incontinence, hematuria, urinary retention. (unknown) (no (unknown) (unknown) Gastroparesis (units ( unknown) date) unknown) (unknown) (no (unknown) (unknown) General (units (unkno wn) date) unknown) (unknown) (no (unknown) (unknown) Globulin (units (unkno wn) date) (1.7-4.1) g/dL unknown) (unknown) (no (unknown) (unknown) Globulin 4.0 (units (u nknown) date) (1.7-4.1) g/dL unknown) (unknown) (no (unknown) (unknown) Glucose (70-100) (units (unknown) date) mg/dL unknown) (unknown) (no (unknown) (unknown) Glucose 117 H (units ( unknown) date) (70-100) mg/dL unknown) (unknown) (no (unknown) (unknown) HEAD: (units (unkno wn) date) Atraumatic. unknown) Normocephalic. (unknown) (no (unknown) (unknown) HEENT: Denies (units ( unknown) date) sinus pain, ear unknown) pain, sore throat, difficulty swallowing, (unknown) (no (unknown) (unknown) HPI - URI/Sore (units (unknown) date) Throat unknown) (unknown) (no (unknown) (unknown) HPI Narrative: (units (unknown) date) unknown) (unknown) (no (unknown) (unknown) Hct (36-46) % (units ( unknown) date) unknown) (unknown) (no (unknown) (unknown) Hct 27.7 L (units (unk nown) date) (36-46) % unknown) (unknown) (no (unknown) (unknown) Hgb (12.0-16.0) (units (unknown) date) g/dL unknown) (unknown) (no (unknown) (unknown) Hgb 8.7 L (units (unkn own) date) (12.0-16.0) g/dL unknown) (unknown) (no (unknown) (unknown) History of (units (unk nown) date) Present Illness unknown) (unknown) (no (unknown) (unknown) History of (units (unk nown) date) gastrectomy unknown) (unknown) (no (unknown) (unknown) Home Medications (units (unknown) date) unknown) (unknown) (no (unknown) (unknown) IMPRESSION:? (units (u nknown) date) Patchy bilateral unknown) opacities suspicious for pneumonia. (unknown) (no (unknown) (unknown) INDICATIONS:? (units ( unknown) date) Shortness of unknown) breath (unknown) (no (unknown) (unknown) INHALE 1 PUFF BY (units (unknown) date) MOUTH TWICE unknown) DAILY. RINSE MOUTH AFTER USE (unknown) (no (unknown) (unknown) INR (0.9-1.3) (units ( unknown) date) unknown) (unknown) (no (unknown) (unknown) INR 1.6 H (units (unkn own) date) (0.9-1.3) unknown) (unknown) (no (unknown) (unknown) Imaging Data (units (u nknown) date) unknown) (unknown) (no (unknown) (unknown) Influenza A (units (un known) date) (RT-PCR) unknown) (NEGATIVE) (unknown) (no (unknown) (unknown) Influenza A (units (un known) date) (RT-PCR) Flu a unknown) negative (NEGATIVE) (unknown) (no (unknown) (unknown) Influenza B (units (un known) date) (RT-PCR) unknown) (NEGATIVE) (unknown) (no (unknown) (unknown) Influenza B (units (un known) date) (RT-PCR) Flu b unknown) negative (NEGATIVE) (unknown) (no (unknown) (unknown) Initial Vital (units ( unknown) date) Signs unknown) (unknown) (no (unknown) (unknown) Initial Vital (units ( unknown) date) Signs: unknown) (unknown) (no (unknown) (unknown) [facility] (units (unknown) date) [address] [place] [address] unknown) [place] [address] (unknown) (no (unknown) (unknown) [facility] (units (unknown) date) unknown) (unknown) (no (unknown) (unknown) Lab Data (units (unkno wn) date) unknown) (unknown) (no (unknown) (unknown) Lab Results (units (un known) date) unknown) (unknown) (no (unknown) (unknown) Labs: (units (unkno wn) date) unknown) (unknown) (no (unknown) (unknown) Lactate (units (unkno wn) date) (0.7-2.1) mmol/L unknown) (unknown) (no (unknown) (unknown) Lactate (Lactic (units (unknown) date) Acid) Stat unknown) (unknown) (no (unknown) (unknown) Lactate 2.1 (units (un known) date) (0.7-2.1) mmol/L unknown) (unknown) (no (unknown) (unknown) Lactate 2.6 H (units ( unknown) date) (0.7-2.1) mmol/L unknown) (unknown) (no (unknown) (unknown) Last Admin: (units (un known) date) 09/25/22 12:49 unknown) Dose: 6 ml (unknown) (no (unknown) (unknown) Last Admin: (units (un known) date) 09/25/22 15:01 unknown) Dose: Not Given (unknown) (no (unknown) (unknown) Last Admin: (units (un known) date) 09/25/22 15:02 unknown) Dose: 200 mls/hr (unknown) (no (unknown) (unknown) Last Infusion: (units (unknown) date) 09/25/22 14:35 unknown) Dose: 0 mls/hr (unknown) (no (unknown) (unknown) Last Infusion: (units (unknown) date) 09/25/22 15:29 unknown) Dose: 0 mls/hr (unknown) (no (unknown) (unknown) Loc: ED (units (unkno wn) date) unknown) (unknown) (no (unknown) (unknown) Lungs and (units (unkn own) date) pleura:? Patchy unknown) right middle and lower lobe opacities and to a lesser (unknown) (no (unknown) (unknown) Lymph # (Auto) (units (unknown) date) Not Reportable unknown) (unknown) (no (unknown) (unknown) Lymph # (Auto) (units (unknown) date) unknown) (unknown) (no (unknown) (unknown) Lymph % (Auto) (units (unknown) date) Not Reportable unknown) (unknown) (no (unknown) (unknown) Lymph % (Auto) (units (unknown) date) unknown) (unknown) (no (unknown) (unknown) Lymphocytes % (units ( unknown) date) (Manual) (25-45) unknown) % (unknown) (no (unknown) (unknown) Lymphocytes % (units ( unknown) date) (Manual) 9.0 L unknown) (25-45) % (unknown) (no (unknown) (unknown) [id number] (units (unk nown) date) unknown) (unknown) (no (unknown) (unknown) MCH (26-34) PG (units (unknown) date) unknown) (unknown) (no (unknown) (unknown) MCH 21.4 L (units (unk nown) date) (26-34) PG unknown) (unknown) (no (unknown) (unknown) MCHC (30-36) % (units (unknown) date) unknown) (unknown) (no (unknown) (unknown) MCHC 31.4 (units (unkn own) date) (30-36) % unknown) (unknown) (no (unknown) (unknown) MCV (80-100) fL (units (unknown) date) unknown) (unknown) (no (unknown) (unknown) MCV 68.4 L (units (unk nown) date) (80-100) fL unknown) (unknown) (no (unknown) (unknown) MDM - URI/Sore (units (unknown) date) Throat unknown) (unknown) (no (unknown) (unknown) MDM Narrative (units ( unknown) date) unknown) (unknown) (no (unknown) (unknown) MDM (units (unkno wn) date) unknown) (unknown) (no (unknown) (unknown) MR#: [id number] (units (unknown) date) unknown) (unknown) (no (unknown) (unknown) MUSCULOSKELETAL: (units (unknown) date) denies weakness, unknown) joint pain, or bony pain (unknown) (no (unknown) (unknown) Measure peak (units (u nknown) date) expiratory flow unknown) ONCE (unknown) (no (unknown) (unknown) Mediastinum:? (units ( unknown) date) Mediastinal unknown) contours appear normal.? Heart size is normal.? (unknown) (no (unknown) (unknown) Medical History (units (unknown) date) (Reviewed unknown) 06/09/22 @ 13:35 by Madie Polo MD) (unknown) (no (unknown) (unknown) Medical decision (units (unknown) date) making narrative: unknown) (unknown) (no (unknown) (unknown) Medication (units (unk nown) date) Instructions unknown) Recorded Confirmed (unknown) (no (unknown) (unknown) Meropenem 500 (units ( unknown) date) mg/ Sodium unknown) (Chloride) 100 mls @ 200 mls/hr IV NOW ONE (unknown) (no (unknown) (unknown) Metamyelocytes % (units (unknown) date) (-0) % unknown) (unknown) (no (unknown) (unknown) Metamyelocytes % (units (unknown) date) 3.0 H (-0) % unknown) (unknown) (no (unknown) (unknown) Microcytosis 2+ (units (unknown) date) H unknown) (unknown) (no (unknown) (unknown) Microcytosis (units (u nknown) date) unknown) (unknown) (no (unknown) (unknown) Mode of arrival: (units (unknown) date) Wheelchair unknown) (unknown) (no (unknown) (unknown) Hyde # (Auto) (units ( unknown) date) Not Reportable unknown) (unknown) (no (unknown) (unknown) Hyde # (Auto) (units ( unknown) date) unknown) (unknown) (no (unknown) (unknown) Hyde % (Auto) (units ( unknown) date) Not Reportable unknown) (unknown) (no (unknown) (unknown) Hyde % (Auto) (units ( unknown) date) unknown) (unknown) (no (unknown) (unknown) Monocytes % (units (un known) date) (Manual) (2-11) % unknown) (unknown) (no (unknown) (unknown) Monocytes % (units (un known) date) (Manual) 8.0 unknown) (2-11) % (unknown) (no (unknown) (unknown) NECK: Trachea (units ( unknown) date) midline. Non unknown) tender (unknown) (no (unknown) (unknown) NEURO: AOx3. (units (u nknown) date) unknown) (unknown) (no (unknown) (unknown) NEUROLOGIC: (units (un known) date) Denies weakness, unknown) headache, numbness, change in speech, confusion, (unknown) (no (unknown) (unknown) NT-Pro-B (units (unkno wn) date) Natriuret Pep unknown) (<125) pg/mL (unknown) (no (unknown) (unknown) NT-Pro-B (units (unkno wn) date) Natriuret Pep unknown) 7310 H (<125) pg/mL (unknown) (no (unknown) (unknown) NT-proBNP (units (unkn own) date) (BNP-Adult 18+) unknown) Stat (unknown) (no (unknown) (unknown) Narrative (units (unkn own) date) unknown) (unknown) (no (unknown) (unknown) Narrative: (units (unk nown) date) unknown) (unknown) (no (unknown) (unknown) Neut % (Auto) (units ( unknown) date) Not Reportable unknown) (unknown) (no (unknown) (unknown) Neut % (Auto) (units ( unknown) date) unknown) (unknown) (no (unknown) (unknown) Neutrophils # (units ( unknown) date) (Manual) unknown) (2454-4090) /uL (unknown) (no (unknown) (unknown) Neutrophils # (units ( unknown) date) (Manual) 84282 H unknown) (2545-5429) /uL (unknown) (no (unknown) (unknown) No Action (units (unkn own) date) unknown) (unknown) (no (unknown) (unknown) On parenteral (units ( unknown) date) nutrition unknown) (unknown) (no (unknown) (unknown) Ordered: (units (unkno wn) date) unknown) (unknown) (no (unknown) (unknown) Ordering (units (unkno wn) date) Provider: unknown) Malick Gilmore MD (unknown) (no (unknown) (unknown) Orders (units (unkno wn) date) unknown) (unknown) (no (unknown) (unknown) Oxygen Delivery (units (unknown) date) Method Room Air unknown) 09/25/22 11:49 (unknown) (no (unknown) (unknown) Oxygen Delivery (units (unknown) date) Method Room Air unknown) Room Air (unknown) (no (unknown) (unknown) Oxygen Delivery (units (unknown) date) Method Room Air unknown) (unknown) (no (unknown) (unknown) Oxygen Delivery (units (unknown) date) Method unknown) (unknown) (no (unknown) (unknown) PROCEDURE:? XR (units (unknown) date) CHEST 1V unknown) (unknown) (no (unknown) (unknown) PSYCHIATRIC: No (units (unknown) date) concerning unknown) psychosocial issues. (unknown) (no (unknown) (unknown) PT (10.1-12.7) (units (unknown) date) SECONDS unknown) (unknown) (no (unknown) (unknown) PT 18.4 H (units (unkn own) date) (10.1-12.7) unknown) SECONDS (unknown) (no (unknown) (unknown) Patient (units (unkno wn) date) Comments: unknown) (unknown) (no (unknown) (unknown) Patient History (units (unknown) date) unknown) (unknown) (no (unknown) (unknown) Patient: (units (unkno wn) date) Reg Quintanilla unknown) F MR#: (unknown) (no (unknown) (unknown) Patient: (units (unkno wn) date) Reg Quintanilla unknown) F (unknown) (no (unknown) (unknown) Penicillins (units (un known) date) Allergy Severe unknown) Anaphylaxis Verified 09/25/22 11:49 (unknown) (no (unknown) (unknown) Plt Count (units (unkn own) date) (150-400) X103/uL unknown) (unknown) (no (unknown) (unknown) Plt Count 301 (units ( unknown) date) (150-400) X103/uL unknown) (unknown) (no (unknown) (unknown) Potassium (units (unkn own) date) (3.4-5.1) mmol/L unknown) (unknown) (no (unknown) (unknown) Potassium 3.8 (units ( unknown) date) (3.4-5.1) mmol/L unknown) (unknown) (no (unknown) (unknown) Prescriptions: (units (unknown) date) unknown) (unknown) (no (unknown) (unknown) Procedure: XR (units ( unknown) date) chest 1V unknown) (unknown) (no (unknown) (unknown) Prothrombin Time (units (unknown) date) INR Stat unknown) (unknown) (no (unknown) (unknown) Pulse Oximetry (units (unknown) date) 100 100 unknown) (unknown) (no (unknown) (unknown) Pulse Oximetry (units (unknown) date) 92 94 unknown) (unknown) (no (unknown) (unknown) Pulse Oximetry (units (unknown) date) 92 unknown) (unknown) (no (unknown) (unknown) Pulse Oximetry (units (unknown) date) 93 unknown) (unknown) (no (unknown) (unknown) Pulse Oximetry (units (unknown) date) 94 unknown) (unknown) (no (unknown) (unknown) Pulse Oximetry (units (unknown) date) 95 unknown) (unknown) (no (unknown) (unknown) Pulse Oximetry (units (unknown) date) 96 94 unknown) (unknown) (no (unknown) (unknown) Pulse Oximetry (units (unknown) date) 96 96 unknown) (unknown) (no (unknown) (unknown) Pulse Oximetry (units (unknown) date) 96 97 unknown) (unknown) (no (unknown) (unknown) Pulse Oximetry (units (unknown) date) 96 unknown) (unknown) (no (unknown) (unknown) Pulse Oximetry (units (unknown) date) 97 94 unknown) (unknown) (no (unknown) (unknown) Pulse Oximetry (units (unknown) date) 97 96 unknown) (unknown) (no (unknown) (unknown) Pulse Oximetry (units (unknown) date) 97 97 unknown) (unknown) (no (unknown) (unknown) Pulse Oximetry (units (unknown) date) 97 99 unknown) (unknown) (no (unknown) (unknown) Pulse Oximetry (units (unknown) date) 97 unknown) (unknown) (no (unknown) (unknown) Pulse Oximetry (units (unknown) date) 98 09/25/22 11:49 unknown) (unknown) (no (unknown) (unknown) Pulse Oximetry (units (unknown) date) 98 97 unknown) (unknown) (no (unknown) (unknown) Pulse Oximetry (units (unknown) date) 98 98 unknown) (unknown) (no (unknown) (unknown) Pulse Oximetry (units (unknown) date) 98 99 98 unknown) (unknown) (no (unknown) (unknown) Pulse Oximetry (units (unknown) date) 98 99 unknown) (unknown) (no (unknown) (unknown) Pulse Oximetry (units (unknown) date) 98 unknown) (unknown) (no (unknown) (unknown) Pulse Oximetry (units (unknown) date) 99 98 unknown) (unknown) (no (unknown) (unknown) Pulse Oximetry (units (unknown) date) 99 unknown) (unknown) (no (unknown) (unknown) Pulse Oximetry (units (unknown) date) unknown) (unknown) (no (unknown) (unknown) Pulse Rate 65 69 (units (unknown) date) unknown) (unknown) (no (unknown) (unknown) Pulse Rate 66 66 (units (unknown) date) unknown) (unknown) (no (unknown) (unknown) Pulse Rate 67 (units ( unknown) date) unknown) (unknown) (no (unknown) (unknown) Pulse Rate 69 (units ( unknown) date) 09/25/22 11:49 unknown) (unknown) (no (unknown) (unknown) Pulse Rate 69 68 (units (unknown) date) 68 unknown) (unknown) (no (unknown) (unknown) Pulse Rate 69 69 (units (unknown) date) unknown) (unknown) (no (unknown) (unknown) Pulse Rate 69 71 (units (unknown) date) unknown) (unknown) (no (unknown) (unknown) Pulse Rate 69 (units ( unknown) date) unknown) (unknown) (no (unknown) (unknown) Pulse Rate 71 72 (units (unknown) date) unknown) (unknown) (no (unknown) (unknown) Pulse Rate 71 (units ( unknown) date) unknown) (unknown) (no (unknown) (unknown) Pulse Rate 72 75 (units (unknown) date) unknown) (unknown) (no (unknown) (unknown) Pulse Rate 73 74 (units (unknown) date) unknown) (unknown) (no (unknown) (unknown) Pulse Rate 73 (units ( unknown) date) unknown) (unknown) (no (unknown) (unknown) Pulse Rate 74 73 (units (unknown) date) unknown) (unknown) (no (unknown) (unknown) Pulse Rate 74 74 (units (unknown) date) unknown) (unknown) (no (unknown) (unknown) Pulse Rate 74 (units ( unknown) date) unknown) (unknown) (no (unknown) (unknown) Pulse Rate 75 74 (units (unknown) date) unknown) (unknown) (no (unknown) (unknown) Pulse Rate 75 (units ( unknown) date) unknown) (unknown) (no (unknown) (unknown) Pulse Rate 76 76 (units (unknown) date) unknown) (unknown) (no (unknown) (unknown) Pulse Rate 76 (units ( unknown) date) unknown) (unknown) (no (unknown) (unknown) Pulse Rate 77 76 (units (unknown) date) unknown) (unknown) (no (unknown) (unknown) Pulse Rate 77 77 (units (unknown) date) unknown) (unknown) (no (unknown) (unknown) Pulse Rate 77 (units ( unknown) date) unknown) (unknown) (no (unknown) (unknown) RBC (4.0-5.2) (units ( unknown) date) X106/uL unknown) (unknown) (no (unknown) (unknown) RBC 4.05 (units (unkno wn) date) (4.0-5.2) X106/uL unknown) (unknown) (no (unknown) (unknown) RBC Morphology (units (unknown) date) See below unknown) (unknown) (no (unknown) (unknown) RBC Morphology (units (unknown) date) unknown) (unknown) (no (unknown) (unknown) RDW (11.6-14.8) (units (unknown) date) % unknown) (unknown) (no (unknown) (unknown) RDW 17.4 H (units (unk nown) date) (11.6-14.8) % unknown) (unknown) (no (unknown) (unknown) RESPIRATORY: (units (un known) date) Clear to unknown) auscultation. Breath sounds equal bilaterally. No wheezes, (unknown) (no (unknown) (unknown) RESPIRATORY: (units (u nknown) date) Reports shortness unknown) of breath (unknown) (no (unknown) (unknown) RSV (PCR) (units (unkn own) date) (Negative) unknown) (unknown) (no (unknown) (unknown) RSV (PCR) (units (unkn own) date) Negative unknown) (Negative) (unknown) (no (unknown) (unknown) RT Consult Eval (units (unknown) date) and Treat NOW unknown) (unknown) (no (unknown) (unknown) Radiologist's (units ( unknown) date) Impression: unknown) (unknown) (no (unknown) (unknown) Referrals: (units (unk nown) date) unknown) (unknown) (no (unknown) (unknown) Related Data (units (u nknown) date) unknown) (unknown) (no (unknown) (unknown) Respiratory Rate (units (unknown) date) 16 09/25/22 11:49 unknown) (unknown) (no (unknown) (unknown) Respiratory Rate (units (unknown) date) 16 unknown) (unknown) (no (unknown) (unknown) Respiratory Rate (units (unknown) date) 17 16 unknown) (unknown) (no (unknown) (unknown) Respiratory Rate (units (unknown) date) 18 unknown) (unknown) (no (unknown) (unknown) Respiratory Rate (units (unknown) date) 19 unknown) (unknown) (no (unknown) (unknown) Respiratory Rate (units (unknown) date) 20 20 unknown) (unknown) (no (unknown) (unknown) Respiratory Rate (units (unknown) date) 20 26 H unknown) (unknown) (no (unknown) (unknown) Respiratory Rate (units (unknown) date) 21 22 unknown) (unknown) (no (unknown) (unknown) Respiratory Rate (units (unknown) date) 21 unknown) (unknown) (no (unknown) (unknown) Respiratory Rate (units (unknown) date) 22 20 unknown) (unknown) (no (unknown) (unknown) Respiratory Rate (units (unknown) date) 22 23 unknown) (unknown) (no (unknown) (unknown) Respiratory Rate (units (unknown) date) 23 18 unknown) (unknown) (no (unknown) (unknown) Respiratory Rate (units (unknown) date) 23 23 unknown) (unknown) (no (unknown) (unknown) Respiratory Rate (units (unknown) date) 23 25 H unknown) (unknown) (no (unknown) (unknown) Respiratory Rate (units (unknown) date) 23 unknown) (unknown) (no (unknown) (unknown) Respiratory Rate (units (unknown) date) 24 22 unknown) (unknown) (no (unknown) (unknown) Respiratory Rate (units (unknown) date) 24 unknown) (unknown) (no (unknown) (unknown) Respiratory Rate (units (unknown) date) 25 H 26 H unknown) (unknown) (no (unknown) (unknown) Respiratory Rate (units (unknown) date) 25 H unknown) (unknown) (no (unknown) (unknown) Respiratory Rate (units (unknown) date) 26 H 24 unknown) (unknown) (no (unknown) (unknown) Respiratory Rate (units (unknown) date) 26 H unknown) (unknown) (no (unknown) (unknown) Respiratory Rate (units (unknown) date) 27 H 25 H unknown) (unknown) (no (unknown) (unknown) Respiratory Rate (units (unknown) date) 27 H unknown) (unknown) (no (unknown) (unknown) Respiratory Rate (units (unknown) date) 28 H 24 unknown) (unknown) (no (unknown) (unknown) Respiratory Rate (units (unknown) date) 28 H unknown) (unknown) (no (unknown) (unknown) Respiratory Rate (units (unknown) date) 31 H unknown) (unknown) (no (unknown) (unknown) Respiratory Rate (units (unknown) date) unknown) (unknown) (no (unknown) (unknown) Review of (units (unkn own) date) Systems unknown) (unknown) (no (unknown) (unknown) SARS-CoV-2 (PCR) (units (unknown) date) (Negative) unknown) (unknown) (no (unknown) (unknown) SARS-CoV-2 (PCR) (units (unknown) date) Negative unknown) (Negative) (unknown) (no (unknown) (unknown) SHAKE LIQUID AND (units (unknown) date) USE 1 SPRAY IN unknown) EACH NOSTRIL TWICE DAILY (unknown) (no (unknown) (unknown) SKIN: Denies (units (u nknown) date) rash, skin unknown) lesions, or other (unknown) (no (unknown) (unknown) SKIN: PICC line (units (unknown) date) in place to right unknown) upper chest, no evidence of any kind of (unknown) (no (unknown) (unknown) Seg Neutrophils (units (unknown) date) % (38-70) % unknown) (unknown) (no (unknown) (unknown) Seg Neutrophils (units (unknown) date) % 51.0 (38-70) % unknown) (unknown) (no (unknown) (unknown) Seizure disorder (units (unknown) date) unknown) (unknown) (no (unknown) (unknown) Shared Decision (units (unknown) date) Making: [ ] unknown) (unknown) (no (unknown) (unknown) She has some (units (u nknown) date) mild chest pain unknown) with deep inspiration. Patient has a history of (unknown) (no (unknown) (unknown) Signed By: (units (unk nown) date) unknown) (unknown) (no (unknown) (unknown) Signed (units (unkno wn) date) unknown) (unknown) (no (unknown) (unknown) Smoking Status: (units (unknown) date) Former smoker unknown) (unknown) (no (unknown) (unknown) Social (units (unkno wn) date) Considerations: [ unknown) ] (unknown) (no (unknown) (unknown) Social History (units (unknown) date) (Reviewed unknown) 06/09/22 @ 13:35 by Madie Polo MD) (unknown) (no (unknown) (unknown) Sodium (137-145) (units (unknown) date) mmol/L unknown) (unknown) (no (unknown) (unknown) Sodium 134 L (units (u nknown) date) (137-145) mmol/L unknown) (unknown) (no (unknown) (unknown) Sodium Chloride (units (unknown) date) (Normal Saline unknown) 0.9%) 1,000 mls @ 1,000 mls/hr IV BOLUS ONE (unknown) (no (unknown) (unknown) Sodium Chloride (units (unknown) date) (Normal Saline unknown) 0.9%) 1,000 mls @ 200 mls/hr IV CONT MY (unknown) (no (unknown) (unknown) Source: patient (units (unknown) date) unknown) (unknown) (no (unknown) (unknown) Stated (units (unkno wn) date) Complaint: asthma unknown) is kicking butt, weak, needs iron (unknown) (no (unknown) (unknown) Stop: 09/25/22 (units (unknown) date) 12:44 unknown) (unknown) (no (unknown) (unknown) Stop: 09/25/22 (units (unknown) date) 13:53 unknown) (unknown) (no (unknown) (unknown) Stop: 09/25/22 (units (unknown) date) 14:17 unknown) (unknown) (no (unknown) (unknown) Stop: 09/25/22 (units (unknown) date) 15:21 unknown) (unknown) (no (unknown) (unknown) Substance Use (units ( unknown) date) Type: does not unknown) use (unknown) (no (unknown) (unknown) Surgical changes (units (unknown) date) and devices:? unknown) Right-sided catheter is present with distal tip (unknown) (no (unknown) (unknown) TAKE 1 CAPSULE (units (unknown) date) BY MOUTH EVERY unknown) DAY (unknown) (no (unknown) (unknown) TAKE 1 TABLET BY (units (unknown) date) MOUTH AT BEDTIME unknown) (unknown) (no (unknown) (unknown) TAKE 1 TABLET BY (units (unknown) date) MOUTH EVERY DAY unknown) (unknown) (no (unknown) (unknown) TAKE 1 TABLET BY (units (unknown) date) MOUTH FOUR TIMES unknown) DAILY NEEDED (unknown) (no (unknown) (unknown) TAKE 2 TABLETS (units (unknown) date) BY MOUTH AT unknown) BEDTIME (unknown) (no (unknown) (unknown) TAKE 2 TABLETS (units (unknown) date) BY MOUTH THREE unknown) TIMES DAILY NEEDED (unknown) (no (unknown) (unknown) TECHNIQUE:? One (units (unknown) date) view of the chest unknown) was acquired.? (unknown) (no (unknown) (unknown) Temperature 97.4 (units (unknown) date) F L 09/25/22 unknown) 11:49 (unknown) (no (unknown) (unknown) Temperature 97.4 (units (unknown) date) F L unknown) (unknown) (no (unknown) (unknown) Temperature (units (un known) date) unknown) (unknown) (no (unknown) (unknown) This is a (units (unkno wn) date) 52-year-old unknown) female presents to the emergency department complaining of (unknown) (no (unknown) (unknown) Time Seen by (units (u nknown) date) Provider: unknown) 09/25/22 12:33 (unknown) (no (unknown) (unknown) Total Bilirubin (units (unknown) date) (0.2-1.3) mg/dL unknown) (unknown) (no (unknown) (unknown) Total Bilirubin (units (unknown) date) 0.5 (0.2-1.3) unknown) mg/dL (unknown) (no (unknown) (unknown) Total Counted (units ( unknown) date) 100 unknown) (unknown) (no (unknown) (unknown) Total Counted (units ( unknown) date) unknown) (unknown) (no (unknown) (unknown) Total Protein (units ( unknown) date) (6.3-8.2) g/dL unknown) (unknown) (no (unknown) (unknown) Total Protein (units ( unknown) date) 7.0 (6.3-8.2) unknown) g/dL (unknown) (no (unknown) (unknown) Troponin I < (units (u nknown) date) 0.012 unknown) (0.01-0.034) ng/mL (unknown) (no (unknown) (unknown) Troponin I (units (unk nown) date) (0.01-0.034) unknown) ng/mL (unknown) (no (unknown) (unknown) Troponin I Stat (units (unknown) date) unknown) (unknown) (no (unknown) (unknown) USE 2 PUFFS BY (units (unknown) date) MOUTH EVERY 4-6 unknown) HOURS. (unknown) (no (unknown) (unknown) Urinalysis and (units (unknown) date) Microscopic Stat unknown) (unknown) (no (unknown) (unknown) Vital Signs - 8 (units (unknown) date) hr unknown) (unknown) (no (unknown) (unknown) Vital Signs (units (un known) date) unknown) (unknown) (no (unknown) (unknown) Vital signs: (units (u nknown) date) unknown) (unknown) (no (unknown) (unknown) WBC (4.5-11.0) (units (unknown) date) X103/uL unknown) (unknown) (no (unknown) (unknown) WBC 13.9 H (units (unk nown) date) (4.5-11.0) unknown) X103/uL (unknown) (no (unknown) (unknown) XR chest 1V Stat (units (unknown) date) unknown) (unknown) (no (unknown) (unknown) XRay Report (units (un known) date) unknown) (unknown) (no (unknown) (unknown) Shaneka García, (units (unknown) date) MD [Primary Care unknown) Provider] (unknown) (no (unknown) (unknown) [Embedded Image (units (unknown) date) Not Available] unknown) (unknown) (no (unknown) (unknown) aerosol inhaler (units (unknown) date) Shortness Of unknown) Breath (unknown) (no (unknown) (unknown) albuterol (units (unkn own) date) sulfate 90 unknown) mcg/actuation 2 puff inhalation Q4HR PRN 01/10/22 04/30/22 (unknown) (no (unknown) (unknown) albuterol (units (unkn own) date) sulfate 90 unknown) mcg/actuation HFA aerosol inhaler (unknown) (no (unknown) (unknown) alcohol intake: (units (unknown) date) never unknown) (unknown) (no (unknown) (unknown) and on TPN. (units (un known) date) Chronically unknown) anemic. (unknown) (no (unknown) (unknown) appear (units (unkno wn) date) unknown) (unknown) (no (unknown) (unknown) asthma and has (units (unknown) date) been using her unknown) albuterol inhaler as prescribed without (unknown) (no (unknown) (unknown) baclofen 10 mg (units (unknown) date) tablet 1 tab PO unknown) QID 01/10/22 04/30/22 (unknown) (no (unknown) (unknown) baclofen 10 mg (units (unknown) date) tablet unknown) (unknown) (no (unknown) (unknown) cetirizine 10 mg (units (unknown) date) tablet 1 tab PO unknown) BEDTIME 01/10/22 04/30/22 (unknown) (no (unknown) (unknown) cetirizine 10 mg (units (unknown) date) tablet unknown) (unknown) (no (unknown) (unknown) chlorhexidine (units ( unknown) date) Allergy unknown) Intermediate Rash Verified 09/25/22 11:49 (unknown) (no (unknown) (unknown) constipation, (units ( unknown) date) melena. unknown) (unknown) (no (unknown) (unknown) degree (units (unkno wn) date) unknown) (unknown) (no (unknown) (unknown) device (units (unkno wn) date) unknown) (unknown) (no (unknown) (unknown) dextroamphetamin (units (unknown) date) e-amphetamine 20 unknown) 1 tab 1XD 05/02/22 05/02/22 (unknown) (no (unknown) (unknown) dextroamphetamin (units (unknown) date) e-amphetamine 20 unknown) mg tablet (unknown) (no (unknown) (unknown) dizziness. (units (unk nown) date) unknown) (unknown) (no (unknown) (unknown) duloxetine 60 mg (units (unknown) date) capsule,delayed 1 unknown) cap PO DAILY 01/10/22 04/30/22 (unknown) (no (unknown) (unknown) duloxetine 60 mg (units (unknown) date) capsule,delayed unknown) release(DR/EC) (unknown) (no (unknown) (unknown) erythema (units (unkno wn) date) surrounding unknown) (unknown) (no (unknown) (unknown) fevers, (units (unkno wn) date) abdominal pain, unknown) significant chest pain, headaches, slurred speech, (unknown) (no (unknown) (unknown) fluticasone 250 (units (unknown) date) mcg-salmeterol 50 unknown) 1 ea inhalation BID 01/10/22 04/30/22 (unknown) (no (unknown) (unknown) fluticasone (units (un known) date) propion-salmetero unknown) l [[facility] In[facility]] 250-50 mcg/dose blister with (unknown) (no (unknown) (unknown) fluticasone (units (un known) date) propionate 50 1 unknown) ea intranasal BID 01/10/22 04/30/22 (unknown) (no (unknown) (unknown) fluticasone (units (un known) date) propionate 50 unknown) mcg/actuation spray,suspension (unknown) (no (unknown) (unknown) history of (units (unk nown) date) candidal sepsis. unknown) Also has a history of seizures, opiate addiction, (unknown) (no (unknown) (unknown) household (units (unkn own) date) members: none unknown) (unknown) (no (unknown) (unknown) hydroxyzine HCl (units (unknown) date) 50 mg tablet 2 unknown) tab PO TID 01/10/22 04/30/22 (unknown) (no (unknown) (unknown) hydroxyzine HCl (units (unknown) date) 50 mg tablet unknown) (unknown) (no (unknown) (unknown) icterus. No (units (un known) date) injection or unknown) drainage. (unknown) (no (unknown) (unknown) infusion of (units (un known) date) fluconazole with unknown) plans to get the PICC in the next day.. Has a (unknown) (no (unknown) (unknown) inhalation (units (unk nown) date) ([facility]) unknown) (unknown) (no (unknown) (unknown) lamotrigine 200 (units (unknown) date) mg tablet 2 tab unknown) PO BEDTIME 01/10/22 04/30/22 (unknown) (no (unknown) (unknown) lamotrigine 200 (units (unknown) date) mg tablet unknown) (unknown) (no (unknown) (unknown) lidocaine (units (unkn own) date) AdvReac unknown) Intermediate Verified 09/25/22 11:49 (unknown) (no (unknown) (unknown) mcg/actuation (units ( unknown) date) nasal unknown) (unknown) (no (unknown) (unknown) mcg/dose blistr (units (unknown) date) powdr for unknown) (unknown) (no (unknown) (unknown) meloxicam 15 mg (units (unknown) date) tablet 1 tab unknown) DAILY 01/10/22 04/30/22 (unknown) (no (unknown) (unknown) meloxicam 15 mg (units (unknown) date) tablet unknown) (unknown) (no (unknown) (unknown) mg tablet (units (unkn own) date) unknown) (unknown) (no (unknown) (unknown) not recall any (units (unknown) date) specific event unknown) that caused the worsening shortness of breath. (unknown) (no (unknown) (unknown) over the mid (units (u nknown) date) SVC. unknown) (unknown) (no (unknown) (unknown) pain with (units (unkn own) date) palpation of the unknown) chest (unknown) (no (unknown) (unknown) projecting (units (unk nown) date) unknown) (unknown) (no (unknown) (unknown) rales, or (units (unkn own) date) rhonchi. unknown) (unknown) (no (unknown) (unknown) release (units (unkno wn) date) unknown) (unknown) (no (unknown) (unknown) seizures, (units (unkn own) date) incoordination. unknown) (unknown) (no (unknown) (unknown) significant (units (un known) date) relief causing unknown) her come in. She denies any nausea, vomiting, (unknown) (no (unknown) (unknown) spray,suspension (units (unknown) date) unknown) (unknown) (no (unknown) (unknown) tonsillar (units (unkn own) date) hypertrophy or unknown) exudate. Airway patent. (unknown) (no (unknown) (unknown) tox [Urine Drug (units (unknown) date) Screen, Rapid] unknown) Stat (unknown) (no (unknown) (unknown) unremarkable.? (units (unknown) date) unknown) (unknown) (no (unknown) (unknown) vancomycin (units (unk nown) date) AdvReac Verified unknown) 09/25/22 11:49 (unknown) (no (unknown) (unknown) weakness, or any (units (unknown) date) other concerning unknown) signs or symptoms. (unknown) (no (unknown) (unknown) within the left (units (unknown) date) upper lobe. unknown) (unknown) (no (unknown) (unknown) worsening acute (units (unknown) date) on chronic unknown) shortness of breath onset 2 days ago. Patient does Result panel 232 (unknown) (no date) (unknown) (unknown) <=1.005 (units (unkn own) unknown) (unknown) (no date) (unknown) (unknown) 0.2 e.u./dl (unkn own) (unknown) (no date) (unknown) (unknown) 5.5 (units (unkn own) unknown) (unknown) (no date) (unknown) (unknown) NEGATIVE (units (unkn own) unknown) (unknown) (no date) (unknown) (unknown) NEGATIVE g/dl (unkn own) (unknown) (no date) (unknown) (unknown) SL CLOUDY (units (unk nown) unknown) (unknown) (no date) (unknown) (unknown) TRACE-INTACT (units ( unknown) unknown) (unknown) (no date) (unknown) (unknown) YELLOW (units (unkn own) unknown) (unknown) (no date) (unknown) (unknown) YELLOW (units (unkn own) unknown) Result panel 233 (unknown) (no date) (unknown) (unknown) Negative (units (unkn own) unknown) (unknown) (no date) (unknown) (unknown) Normal (units (unkn own) unknown) (unknown) (no date) (unknown) (unknown) Positive (units (unkn own) unknown) Result panel 234 (unknown) (no date) (unknown) (unknown) <=1.005 (units (unkn own) unknown) (unknown) (no date) (unknown) (unknown) 0.2 e.u./dl (unkn own) (unknown) (no date) (unknown) (unknown) 1-5/HPF (units (unkn own) unknown) (unknown) (no date) (unknown) (unknown) 5-10 /HPF (units (unk nown) unknown) (unknown) (no date) (unknown) (unknown) 5.5 (units (unkn own) unknown) (unknown) (no date) (unknown) (unknown) Cult Not (units (unkn own) Indicated unknown) (unknown) (no date) (unknown) (unknown) NEGATIVE (units (unkn own) unknown) (unknown) (no date) (unknown) (unknown) NEGATIVE g/dl (unkn own) (unknown) (no date) (unknown) (unknown) None Seen (units (unk nown) unknown) (unknown) (no date) (unknown) (unknown) None Seen (units (unk nown) unknown) (unknown) (no date) (unknown) (unknown) SL CLOUDY (units (unk nown) unknown) (unknown) (no date) (unknown) (unknown) TRACE-INTACT (units ( unknown) unknown) (unknown) (no date) (unknown) (unknown) YELLOW (units (unkn own) unknown) (unknown) (no date) (unknown) (unknown) YELLOW (units (unkn own) unknown) Result panel 235 (unknown) (no date) (unknown) (unknown) Detected (units (unkn own) unknown) (unknown) (no date) (unknown) (unknown) Detected (units (unkn own) unknown) (unknown) (no date) (unknown) (unknown) Not Detected (units ( unknown) unknown) (unknown) (no date) (unknown) (unknown) Not Detected (units ( unknown) unknown) Result panel 236 (unknown) (no (unknown) (unknown) (no value) (units (unk nown) date) unknown) (unknown) (no (unknown) (unknown) Gram positive cocci (unit s (unknown) date) unknown) (unknown) (no (unknown) (unknown) Identification to (units (unknown) date) follow unknown) (unknown) (no (unknown) (unknown) NURSE ANDRES PAFFIE (units (unknown) date) unknown) (unknown) (no (unknown) (unknown) STASPEStaphylococcus (uni ts (unknown) date) species unknown) Result panel 237 (unknown) (no date) (unknown) (unknown) (no value) (units (un known) unknown) (unknown) (no date) (unknown) (unknown) NO GROWTH (units (unk nown) AFTER 24 unknown) HOURS Result panel 238 (unknown) (no (unknown) (unknown) (no value) (units (unk nown) date) unknown) (unknown) (no (unknown) (unknown) Gram positive cocci (unit s (unknown) date) unknown) (unknown) (no (unknown) (unknown) Identification to (units (unknown) date) follow unknown) (unknown) (no (unknown) (unknown) NURSE ANDRES PAFFIE (units (unknown) date) unknown) (unknown) (no (unknown) (unknown) STASPEStaphylococcus (uni ts (unknown) date) species unknown) (unknown) (no (unknown) (unknown) This organism was (units (unknown) date) isolated from one unknown) bottle; probable (unknown) (no (unknown) (unknown) contaminant. (units (u nknown) date) Sensitivity will not unknown) be performed unless the (unknown) (no (unknown) (unknown) provider requests. (units (unknown) date) unknown) (unknown) (no (unknown) (unknown) second bottle becomes (un its (unknown) date) positive for this unknown) organism, or if Result panel 239 (unknown) (no date) (unknown) (unknown) (no value) (units (un known) unknown) (unknown) (no date) (unknown) (unknown) NO GROWTH (units (unk nown) AFTER 48 unknown) HOURS Result panel 240 (unknown) (no (unknown) (unknown) (no value) (units (unk nown) date) unknown) (unknown) (no (unknown) (unknown) Gram positive cocci (unit s (unknown) date) unknown) (unknown) (no (unknown) (unknown) Identification to (units (unknown) date) follow unknown) (unknown) (no (unknown) (unknown) NURSE ANDRES PAFFIE (units (unknown) date) unknown) (unknown) (no (unknown) (unknown) STAEPIStaphylococcus (uni ts (unknown) date) epidermidis unknown) (unknown) (no (unknown) (unknown) This organism was (units (unknown) date) isolated from one unknown) bottle; probable (unknown) (no (unknown) (unknown) contaminant. (units (u nknown) date) Sensitivity will not unknown) be performed unless the (unknown) (no (unknown) (unknown) provider requests. (units (unknown) date) unknown) (unknown) (no (unknown) (unknown) second bottle becomes (un its (unknown) date) positive for this unknown) organism, or if Result panel 241 (unknown) (no date) (unknown) (unknown) (no value) (units (un known) unknown) (unknown) (no date) (unknown) (unknown) NO GROWTH (units (unk nown) AFTER 72 unknown) HOURS Result panel 242 (unknown) (no date) (unknown) (unknown) (no value) (units (un known) unknown) (unknown) (no date) (unknown) (unknown) NO GROWTH (units (unk nown) AFTER 4 DAYS unknown) Result panel 243 (unknown) (no date) (unknown) (unknown) (no value) (units (un known) unknown) (unknown) (no date) (unknown) (unknown) NO GROWTH (units (unk nown) AFTER 5 DAYS unknown) Result panel 244 (unknown) (no (unknown) (unknown) (no value) (units (unk nown) date) unknown) (unknown) (no (unknown) (unknown) Gram positive cocci (unit s (unknown) date) unknown) (unknown) (no (unknown) (unknown) Identification to (units (unknown) date) follow unknown) (unknown) (no (unknown) (unknown) NURSE ANDRES PAFFIE (units (unknown) date) unknown) (unknown) (no (unknown) (unknown) STAEPIStaphylococcus (uni ts (unknown) date) epidermidis unknown) (unknown) (no (unknown) (unknown) This organism was (units (unknown) date) isolated from one unknown) bottle; probable (unknown) (no (unknown) (unknown) contaminant. (units (u nknown) date) Sensitivity will not unknown) be performed unless the (unknown) (no (unknown) (unknown) provider requests. (units (unknown) date) unknown) (unknown) (no (unknown) (unknown) second bottle becomes (un its (unknown) date) positive for this unknown) organism, or if Social History date description facility 2022-09-25 00:00 Ex-smoker ([facility] Vital Signs date measurement value units 2022-09-25 00:00 BMI 20.2 kg/m2 2022-09-25 00:00 BP_diastolic 56 mmHg 2022-09-25 00:00 BP_systolic 122 mmHg 2022-09-25 00:00 heart_rate 87 /min 2022-09-25 00:00 height_metric 170.18 cm 2022-09-25 00:00 height_standard 67 in 2022-09-25 00:00 o2_saturation 33 % 2022-09-25 00:00 respiration_rate 35 /min 2022-09-25 00:00 temperature_metric 36.33 C 2022-09-25 00:00 temperature_standard 97.4 F 2022-09-25 00:00 weight_metric 58.51 kg 2022-09-25 00:00 weight_standard 128.99 lb
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
[2022-11-05 12:36] LABS: BASOPHILS # (AUTO) 0.1 10^3/uL (0.0-0.1); BASOPHILS % (AUTO) 0.8 %; EOSINOPHILS # (AUTO) 0.2 10^3/uL (0.0-0.7); EOSINOPHILS % (AUTO) 2.5 %; HGB - HEMOGLOBIN 9.6 g/dL (12.0-16.0); LYMPHOCYTES # (AUTO) 0.8 10^3/uL (1.5-3.5); LYMPHOCYTES % (AUTO) 10.8 %; MEAN CORPUSCULAR HEMOGLOBIN 23.9 pg (27.0-31.0); MEAN CORPUSCULAR VOLUME 79.8 fL (81.0-99.0); MEAN PLATELET VOLUME 9.4 fL (7.9-10.8); MONOCYTES # (AUTO) 0.4 10^3/uL (0.0-1.0); MONOCYTES % (AUTO) 5.2 %; NEUTROPHILS # (AUTO) 5.7 10^3/uL (1.5-6.6); NEUTROPHILS % (AUTO) 80.4 %; PLT - PLATELET COUNT 374 10^3/uL (130-450); RED BLOOD COUNT 4.01 10^6/uL (4.20-5.40); WHITE BLOOD COUNT 7.1 x10^3/uL (4.8-10.8)
[2022-11-05 12:57] LABS: ALBUMIN 2.9 g/dL (3.2-5.5); ALBUMIN/GLOBULIN RATIO 0.8 (1.0-2.2); BILIRUBIN,TOTAL 0.4 mg/dL (0.2-1.0); CALCIUM 8.5 mg/dL (8.5-10.3); CREATININE 0.7 mg/dL (0.4-1.0); POTASSIUM 3.6 mmol/L (3.5-5.0); TOTAL PROTEIN 6.6 g/dL (6.7-8.2)
[2022-11-05 13:00] LABS: BILIRUBIN,URINE NEGATIVE (NEGATIVE); GLUCOSE, URINE (UA) NEGATIVE (NEGATIVE); KETONES,URINE (UA) NEGATIVE (NEGATIVE); LEUKOCYTE ESTERASE, URINE NEGATIVE (NEGATIVE); NITRITE,URINE NEGATIVE (NEGATIVE); OCCULT BLOOD,URINE NEGATIVE (NEGATIVE); PROTEIN,URINE NEGATIVE (NEGATIVE); UROBILINOGEN,URINE 0.2 (NORMAL) E.U./dL (NORMAL)
[2022-11-05 13:01] LABS: CLARITY,URINE CLEAR (CLEAR)
[2022-11-05 13:14] LABS: RBC MORPHOLOGY (MULTIPLE) 4+ ANISOCYTOSIS (NORMAL)
[2022-11-05] MEDS ORDERED: HYDROmorphone 0.5 MG/0.5 ML SYRINGE IVP STA (13:27)
[2022-11-05] MEDS ORDERED: GADOBUTROL 7.5 MMOL/7.5 ML VIAL ONE (15:30)
--- NOTE | 2022-11-05 16:31 | MRI Report ---
PROCEDURE: LUMBAR SPINE W/WO INDICATIONS: low back pain and abnormal CT CONTRAST: GADAVIST 6.1ML TECHNIQUE: Noncontrast sagittal T1 spin echo and T2 fast spin echo, sagittal STIR, axial T1 and T2 fast spin ech o through the lumbar spine. In cases with scoliosis, additional coronal T2 fast spin echo may be per formed. After the administration of contrast, sagittal and axial T1 spin echo with fat saturation th rough the lumbar spine. COMPARISON: Same-day CT FINDINGS: Image quality: Motion degraded Alignment: No significant spinal listhesis Marrow: Enhancement and edema involving the entirety the L4 vertebral body and most of the L5 vertebr al body. There is endplate erosion and enhancement of the disc. Cord: Cord terminates in normal position. Soft tissues: Moderate inflammatory changes are seen surrounding the L4 and L5 vertebral bodies, invo lving the retroperitoneum, perivascular spaces, and medial psoas muscles. Inflammation also extends to the facet joints bilaterally at L4-L5. Epidural thickening and enhanceme nt, measuring 3 to 4 mm anteriorly in up to 4 mm in the right posterior lateral aspect (). Moderate thecal sac narrowing at this level, with moderate to severe bilateral neural foraminal narro wing. Milder degenerative changes are seen at the other spinal levels. IMPRESSION: Discitis osteomyelitis with significant surrounding soft tissue inflammation, involving the entirety of the L4 vertebral body and most of the L5 vertebral body. Suspected epidural phlegmon involving the ventral and right posterior lateral region. Also suspected bilateral facet septic arthritis. Neurosurgical consultation is advised. This MRI is motion degraded. Reviewed by: Rufus Parham MD on 11/05/2022 4:30 PM PDT Approved by: Rufus Parham MD on 11/05/2022 4:30 PM PDT Station ID: [id number]
[2022-11-05] MEDS ORDERED: GADOBUTROL 7.5 MMOL/7.5 ML VIAL IVP ONE (17:18)
[2022-11-05] MEDS ORDERED: LACTATED RINGERS 1,000 ML IV STA (18:00)
[2022-11-05 18:36] LABS: MUDS CUTOFF CONCENTRATIONS CUTOFF CONC BELOW:
[2022-11-05 18:47] LABS: AMPHETAMINE SCREEN,URINE POSITIVE (NEGATIVE); COCAINE SCREEN URINE NEGATIVE (NEGATIVE); METHAMPHETAMINES SCREEN, URINE NEGATIVE (NEGATIVE); OPIATE SCREEN, URINE POSITIVE (NEGATIVE); THC CANNABINOID SCREEN, URINE NEGATIVE (NEGATIVE)
[2022-11-05 18:48] LABS: BARBITURATE SCREEN,UR NEGATIVE (NEGATIVE); BENZODIAZEPINES SCREEN, URINE NEGATIVE (NEGATIVE); METHADONE SCREEN, URINE NEGATIVE (NEGATIVE); OXYCODONE SCREEN, URINE NEGATIVE (NEGATIVE); PROPOXYPHENE SCREEN, URINE NEGATIVE (NEGATIVE); TRICYCLIC ANTIDEPRESSANT,URINE NEGATIVE (NEGATIVE)
[2022-11-05] MEDS: BACLOFEN 10 MG TABLET PO SCH ×2 (19:30→22:59)
[2022-11-05] MEDS: HYDROmorphone 1 MG/ML CARPUJECT IVP PRN (20:36)
[2022-11-05] MEDS ORDERED: CEFEPIME 2 GM in SODIUM CHLORIDE 0.9% MINIBAG 100 ML IV STA (21:54)
[2022-11-05] MEDS ORDERED: VANCOMYCIN INJ 1 GM in SODIUM CHLORIDE 0.9% 500 ML IV STA (21:54)
[2022-11-05] MEDS ORDERED: VANCOMYCIN 1 GM VIAL ONE (22:02)
--- NOTE | 2022-11-05 23:15 | ED Physician Documentation ---
ED Addendum - Addendum Addendum: This patient was signed out to me by Dr. Kuhn. Briefly she has a history of low back pain worsening for the past 1 month. She is on TPN for malnutrition with a Gutierrez port in the right chest. 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 She states that the only hardware in her body is on her left shoulder as well as hernia mesh in the abdomen. She states that she has not used methamphetamines in over 10 years. She did have urinary retention on postvoid residual of 600 mL and a urinary catheter was placed. I discussed the case with Dr. Kleber Muller, Neurosurgery at [facility]. He recommends starting the patient on vancomycin and cefepime. Recommends admission for IV antibiotics, biopsy with IR. There are no beds available at [facility] or [facility]. There are no beds at [facility]. We will continue searching for beds. Patient will be signed out to the oncoming emergency department physician. This document was made in part using voice recognition software. While efforts are made to proofread this document, sound alike and grammatical errors may occur.
[2022-11-06] MEDS: HYDROmorphone 1 MG/ML CARPUJECT IVP PRN ×3 (01:03→09:18)
[2022-11-06] MEDS: GABAPENTIN 100 MG CAPSULE PO SCH ×2 (04:05→09:14)
[2022-11-06] MEDS: lamoTRIgine 100 MG TABLET PO SCH ×2 (04:06→09:14)
[2022-11-06] MEDS: BACLOFEN 10 MG TABLET PO SCH (06:43)
[2022-11-06] MEDS ORDERED: CEFEPIME 2 GM in SODIUM CHLORIDE 0.9% MINIBAG 100 ML IV SCH (07:00)
--- NOTE | 2022-11-06 08:30 | ED Physician Documentation ---
ED Addendum - Addendum Addendum: Patient received in signout this morning. She is boarding in the emergency department awaiting transfer for L4-L5 discitis osteomyelitis. 11/06/22 08:10 D/W Dr. Earl Padron (Spine surgeon at [facility]) - He would not plan on doing surgery right now and would recommend continued IV antibiotics for 3 to 4 days Unless she developed abnormal neuro symptoms. We did discuss that she has urinary retention.He would be happy to consult on the case and continue to follow her. He request that we speak to the hospitalist service. D/W Dr. Abran Luna (Hospitalist at [facility]) - Agrees to accept the patient in transfer. I evaluated the patient this morning. She reports having some pain in her back.On exam she has intact sensation to bilateral lower extremities. Both lower extremities appear warm and well perfused.Motor exam also appears grossly intact. Patient does have right below-knee amputation which she states was done at [facility]. Departure - Departure Disposition: 02 Transfer Acute Care Hosp Clinical Impression: Acute low back pain, Acute urinary retention, Septic discitis of lumbar region Condition: Stable Discharge Date/Time: 11/06/22 10:13
[2022-11-06] MEDS ORDERED: MELOXICAM 7.5 MG TABLET PO SCH (09:00)
[2022-11-06] MEDS ORDERED: DULoxetine 60 MG CAPSULE PO SCH (09:00)
[2022-11-06 09:19] VITALS: BP 156/87
[2022-11-06] MEDS ORDERED: HYDROmorphone 1 MG/ML CARPUJECT IVP STA (09:59)
== END 2022-11-06 10:13 | disposition short-term general hospital (02) ==
LOC: EDUNIT# → ED 08:50
DX: M46.46 Discitis, unspecified, lumbar region (principal); R33.9 Retention of urine, unspecified; Z20.822 Contact with and (suspected) exposure to COVID-19; Z87.891 Personal history of nicotine dependence; Z79.899 Other long term (current) drug therapy
CPT/HCPCS: 36415; 51702; 72131; 72158; 80053; 80306; 81003; 83690; 85025; 85651; 86140; 87040; 87635; 87640; 96365; 96366; 96368; 96375; 96376; 99285; A9270; A9585; J1170; J3370; J7120; 81001; 87086

== ENCOUNTER 2022-11-06 10:08 | Outpatient (CLI) | payer MEDICARE, MEDICAID | END 2022-11-06 10:09 | disposition short-term general hospital (02) | LOC: EMS 10:08 | PROVIDERS: ATTEND Emergency Medicine | DX: M46.46 Discitis, unspecified, lumbar region (principal); M86.9 Osteomyelitis, unspecified | CPT/HCPCS: A0425; A0426 ==

== ENCOUNTER 2022-11-25 08:00 | Outpatient (CLI) | payer MEDICARE, MEDICAID ==
[2022-11-25 17:01] LABS: BASOPHILS # (AUTO) 0.1 10^3/uL (0.0-0.1); BASOPHILS % (AUTO) 1.1 %; EOSINOPHILS # (AUTO) 0.5 10^3/uL (0.0-0.7); EOSINOPHILS % (AUTO) 8.7 %; HCT - HEMATOCRIT 28.7 % (37.0-47.0); HGB - HEMOGLOBIN 8.6 g/dL (12.0-16.0); LYMPHOCYTES # (AUTO) 1.2 10^3/uL (1.5-3.5); LYMPHOCYTES % (AUTO) 19.1 %; MEAN CORPUSCULAR HEMOGLOBIN 24.9 pg (27.0-31.0); MEAN CORPUSCULAR VOLUME 83.2 fL (81.0-99.0); MEAN PLATELET VOLUME 11.5 fL (7.9-10.8); MONOCYTES # (AUTO) 0.4 10^3/uL (0.0-1.0); MONOCYTES % (AUTO) 5.9 %; NEUTROPHILS # (AUTO) 4.1 10^3/uL (1.5-6.6); NEUTROPHILS % (AUTO) 64.9 %; PLT - PLATELET COUNT 334 10^3/uL (130-450); RED BLOOD COUNT 3.45 10^6/uL (4.20-5.40); RED CELL DISTRIBUTION WIDTH 20.3 % (12.0-15.0); WHITE BLOOD COUNT 6.2 x10^3/uL (4.8-10.8)
[2022-11-25 17:12] LABS: ALBUMIN 2.6 g/dL (3.2-5.5); ALBUMIN/GLOBULIN RATIO 0.8 (1.0-2.2); BILIRUBIN,TOTAL 0.4 mg/dL (0.2-1.0); CALCIUM 8.6 mg/dL (8.5-10.3); CREATININE 0.5 mg/dL (0.4-1.0); CRP - C-REACTIVE PROTEIN 3.5 mg/dL (0-1.0); PHOSPHORUS 3.4 mg/dL (2.5-4.6); POTASSIUM 4.3 mmol/L (3.5-5.0)
[2022-11-25 17:35] LABS: SLIDE REVIEW? Indicated
== END 2022-11-25 23:59 | disposition home or self-care (01) ==
LOC: LAB.R 08:00
PROVIDERS: ATTEND Obstetrics & Gynecology
DX: K31.84 Gastroparesis (principal); R78.81 Bacteremia; E46 Unspecified protein-calorie malnutrition; K59.9 Functional intestinal disorder, unspecified
CPT/HCPCS: 80053; 82550; 83735; 84100; 84478; 85025; 85651; 86140

== ENCOUNTER 2023-01-19 09:10 | Outpatient (CLI) | payer MEDICARE, MEDICAID | END 2023-01-19 23:59 | disposition short-term general hospital (02) | LOC: EMS 09:10 | DX: T82.848A Pain due to vascular prosthetic devices, implants and grafts, initial encounter (principal); R50.9 Fever, unspecified; R22.2 Localized swelling, mass and lump, trunk | CPT/HCPCS: A0425; A0427 ==

== ENCOUNTER 2023-06-13 07:36 | Outpatient (CLI) | payer MEDICARE, MEDICAID | END 2023-06-13 07:37 | disposition critical access hospital (66) | LOC: EMS 07:36 | DX: R06.00 Dyspnea, unspecified (principal) | CPT/HCPCS: A0425; A0427 ==

== ENCOUNTER 2023-06-13 07:50 | Inpatient (IN) | payer MEDICARE, MEDICAID ==
[2023-06-13] MEDS ORDERED: SODIUM CHLORIDE 0.9% 1,000 ML IV STA (08:01)
--- NOTE | 2023-06-13 08:02 | ED Physician Documentation ---
PD HPI URI - Stated complaint Stated Complaint: SOA - History obtained from History obtained from: Patient, EMS (initial sats in 70s% with very labored breathing. Fiven neb treatment enroute iwth reasonable improvement and also Solumedrol given history of asthma.) - History of Present Illness Timing - onset: How many days ago (4) Timing duration: Days (4) Timing details: Gradual onset, Still present Associated symptoms: Nasal congestion, Dry cough, Dyspnea. No: Hemoptysis, Chest pain, Unilateral edema Contributing factors: No: Sick contact, Immunocompromised Improves by: Rest Worsened by: Activity. No: Position Similar symptoms before: Diagnosis (pneumonia 2 years ago, sent to [place] due to no beds at our facility.) Recently seen: Not recently seen Review of Systems Constitutional: reports: Myalgias (several days), Fatigue Nose: reports: Congestion. denies: Rhinorrhea / runny nose Throat: denies: Sore throat Cardiac: denies: Chest pain / pressure, Pedal edema, Calf pain Respiratory: reports: Dyspnea, Cough, Wheezing GI: reports: Nausea. denies: Abdominal Pain, Vomiting, Diarrhea, Bloody / black stool Musculoskeletal: reports: Back pain (chronic, on buprenorphine patch). denies: Extremity swelling Neurologic: reports: Generalized weakness PD PAST MEDICAL HISTORY - Past Medical History Cardiovascular: None Respiratory: Asthma, Shortness of breath Neuro: None Endocrine/Autoimmune: None GI: Other (stomach problems with resection/surgery. Poor PO intake. Gets TPN.) [employer]: None : None HEENT: Chronic hearing loss Psych: Anxiety, Bipolar disorder Musculoskeletal: Chronic back pain (with discitis October 2022, treated surgically and antibiotics prolonged. In [facility] for it.), Other Derm: None - Past Surgical History Past Surgical History: Yes General: Bowel surgery Ortho: Spine surgery - Present Medications Home Medications: Ambulatory Orders Medication Instructions Recorded Confirmed Albuterol Sulf [Ventolin Hfa 1 - 2 puffs IH PRN PRN 06/13/21 06/13/23 Inhaler] Baclofen [Lioresal] 1 tablet ORAL Q6H PRN 06/13/21 06/13/23 Cetirizine [ZyrTEC] 1 tab ORAL HS 06/13/21 06/13/23 Duloxetine HCl [Cymbalta] 60 mg PO DAILY 06/13/21 06/13/23 Montelukast [Singulair] 1 tab ORAL DAILY 06/13/21 06/13/23 lamoTRIgine [Lamictal] 2 tablet PO HS 06/13/21 06/13/23 traMADol [Ultram] 1 tablet ORAL PRN PRN 06/13/21 06/13/23 Gabapentin [Neurontin] 300 mg ORAL TID 11/05/22 06/13/23 Meloxicam, Submicronized 15 mg PO DAILY 11/06/22 06/13/23 [Meloxicam] Atomoxetine HCl [Strattera] 80 mg PO DAILY 06/13/23 06/13/23 Biotin/Lutein [Biotin Plus 5,000 2 each PO DAILY 06/13/23 06/13/23 Mcg Tablet] Buprenorphine 1 each TD FR 06/13/23 06/13/23 Cholecalciferol (Vitamin D3) 125 mcg PO DAILY 06/13/23 06/13/23 [Vitamin D3] Fluticasone Propion/Salmeterol 1 puffs PO BID 06/13/23 06/13/23 [Wixela 250-50 Inhub] Hydrocodone/Acetaminophen 2 each PO Q6H PRN 06/13/23 06/13/23 [Hydrocodone-Acetamin 5-300 mg] Vitamin K2 [Mk-7] 90 mcg PO DAILY 06/13/23 06/13/23 hydrOXYzine HCL [Hydroxyzine HCl] 100 mg PO TID PRN 06/13/23 06/13/23 - Allergies Allergies/Adverse Reactions: Allergies Allergy/AdvReac Type Severity Reaction Status Date / Time morphine Allergy Hives Verified 06/13/23 19:07 Penicillins Allergy Unknown Verified 06/13/23 19:07 - Social History Does the pt smoke?: No Smoking Status: Never smoker Does the pt drink ETOH?: No Does the pt have substance abuse?: No - Immunizations Immunizations are current?: No Immunizations: TDAP >10years/unknown, Other immun not current - POLST Patient has POLST: Yes POLST Status: Full Code PD ED PE NORMAL - Vitals Vital signs reviewed: Yes - General General: Alert and oriented X 3, Well developed/nourished, Other (appears with some work of breathing, inspiration more. ) - HEENT HEENT: Atraumatic - Neck Neck: Supple, no meningeal sign, No adenopathy - Cardiac Cardiac: No: RRR (tachycardic initially but regular. ) - Respiratory Respiratory: Other (port right chest wall without redness/tenderness. ). No: Clear bilaterally (wheezing noted diffusely. No fine crackles. Has some coarse wet sounds more to right. ) - Abdomen Abdomen: Soft, Non tender - Back Back: No CVA TTP - Derm Derm: Normal color, Warm and dry - Extremities Extremities: No edema, No calf tenderness / cord, Other (right BKA noted. ) - Neuro Neuro: Alert and oriented X 3 Eye Opening: Spontaneous Motor: Obeys Commands Verbal: Oriented GCS Score: 15 Results - Vitals Vitals: Vital Signs - 24 hr 06/13/23 06/13/23 06/13/23 07:56 08:14 08:59 Temperature 36.0 C L Heart Rate 152 H 68 95 Respiratory 22 20 27 H Rate Blood Pressure 98/53 L 93/46 L 92/61 O2 Saturation 93 99 93 If not protocol 4 : Oxygen Flow, liters/minute 06/13/23 06/13/23 06/13/23 09:05 09:29 09:30 Temperature Heart Rate 84 80 87 Respiratory 32 H 26 H 23 Rate Blood Pressure 91/76 92/76 O2 Saturation 96 98 If not protocol 4 3 3.5 : Oxygen Flow, liters/minute 06/13/23 06/13/23 06/13/23 10:30 11:00 12:19 Temperature Heart Rate 88 103 H 90 Respiratory 24 19 25 H Rate Blood Pressure 113/54 L 102/49 L 101/53 L O2 Saturation 92 93 90 L If not protocol 3.5 8 8 : Oxygen Flow, liters/minute Oxygen O2 Source Nasal cannula Oxygen Flow Rate 4 - EKG (time done) 08:06 EKG releavant findings:: EKG personally interpreted by author of this note. Relevant findings are: Rate: Rate (enter#) (78) Rhythm: Atrial fibrillation [place]: Normal Intervals: Normal MN QRS: Normal Ischemia: Normal ST segments. No: ST elevation c/w ischemia, ST depression Compare to prior EKG: Changed from prior EKG (06/13/21 was NSR.) - Labs Labs: Laboratory Tests 06/13/23 06/13/23 06/13/23 08:19 08:33 08:33 WBC 3.5 L RBC 4.10 L Hgb 11.2 L Hct 35.1 L MCV 85.6 MCH 27.3 MCHC 31.9 L RDW 15.8 H Plt Count 154 MPV 11.1 H Neut # (Auto) Not Reportable Lymph # (Auto) Not Reportable Reeves # (Auto) Not Reportable Eos # (Auto) Not Reportable Baso # (Auto) Not Reportable Absolute Nucleated RBC Not Reportable Total Counted 100 Band Neuts % (Manual) 32 H Reactive Lymphs % (Man) 2 Abnorm Lymph % (Manual) 0 Metamyelocytes % 5 H Myelocytes % 3 H Nucleated RBC % Not Reportable Neutrophils # (Manual) 2.7 Lymphocytes # (Manual) 0.5 L Monocytes # (Manual) 0.0 Eosinophils # (Manual) 0.0 Basophils # (Manual) 0.0 Differential Comment MANUAL DIFFERENTIAL RBC Morph Micro Appear 3+ ANISOCYTOSIS Bld Gas Analysis Time Sample Site ABG pH ABG pCO2 ABG pO2 ABG HCO3 ABG Total CO2 ABG O2 Saturation ABG Base Excess Kody Test O2 Delivery Device O2 Liters/Min Sodium 133 L Potassium 3.5 Chloride 103 Carbon Dioxide 23 Anion Gap 7.0 BUN 25 H Creatinine 0.9 Estimated GFR (MDRD) 66 L Glucose 166 H Lactic Acid Calcium 8.9 Phosphorus 1.7 L Magnesium 2.2 Total Bilirubin 0.5 AST 11 ALT 9 L Alkaline Phosphatase 122 H Troponin I High Sens B-Natriuretic Peptide Total Protein 5.6 L Albumin 3.0 L Globulin 2.6 Albumin/Globulin Ratio 1.2 Lipase < 10 L Nasal Adenovirus (PCR) NOT DETECTED Nasal B. parapertussis DNA (PCR) NOT DETECTED Nasal Coronavir 229E PCR NOT DETECTED Nasal Coronavir HKU1 PCR NOT DETECTED Nasal Coronavir NL63 PCR NOT DETECTED Nasal Coronavir OC43 PCR NOT DETECTED Nasal Enterovir/Rhinovir PCR NOT DETECTED Nasal Influenza B PCR NOT DETECTED Nasal Influenza A PCR NOT DETECTED Nasal Parainfluen 1 PCR NOT DETECTED Nasal Parainfluen 2 PCR NOT DETECTED Nasal Parainfluen 3 PCR NOT DETECTED Nasal Parainfluen 4 PCR NOT DETECTED Nasal RSV (PCR) NOT DETECTED Nasal B.pertussis DNA PCR NOT DETECTED Nasal C.pneumoniae (PCR) NOT DETECTED Zac Human Metapneumo PCR NOT DETECTED Nasal M.pneumoniae (PCR) NOT DETECTED Nasal SARS-CoV-2 (PCR) NOT DETECTED 06/13/23 06/13/23 06/13/23 08:33 08:33 08:33 WBC RBC Hgb Hct MCV MCH MCHC RDW Plt Count MPV Neut # (Auto) Lymph # (Auto) Reeves # (Auto) Eos # (Auto) Baso # (Auto) Absolute Nucleated RBC Total Counted Band Neuts % (Manual) Reactive Lymphs % (Man) Abnorm Lymph % (Manual) Metamyelocytes % Myelocytes % Nucleated RBC % Neutrophils # (Manual) Lymphocytes # (Manual) Monocytes # (Manual) Eosinophils # (Manual) Basophils # (Manual) Differential Comment RBC Morph Micro Appear Bld Gas Analysis Time Sample Site ABG pH ABG pCO2 ABG pO2 ABG HCO3 ABG Total CO2 ABG O2 Saturation ABG Base Excess Kody Test O2 Delivery Device O2 Liters/Min Sodium Potassium Chloride Carbon Dioxide Anion Gap BUN Creatinine Estimated GFR (MDRD) Glucose Lactic Acid 3.3 H* Calcium Phosphorus Magnesium Total Bilirubin AST ALT Alkaline Phosphatase Troponin I High Sens 11.5 B-Natriuretic Peptide 1245 H Total Protein Albumin Globulin Albumin/Globulin Ratio Lipase Nasal Adenovirus (PCR) Nasal B. parapertussis DNA (PCR) Nasal Coronavir 229E PCR Nasal Coronavir HKU1 PCR Nasal Coronavir NL63 PCR Nasal Coronavir OC43 PCR Nasal Enterovir/Rhinovir PCR Nasal Influenza B PCR Nasal Influenza A PCR Nasal Parainfluen 1 PCR Nasal Parainfluen 2 PCR Nasal Parainfluen 3 PCR Nasal Parainfluen 4 PCR Nasal RSV (PCR) Nasal B.pertussis DNA PCR Nasal C.pneumoniae (PCR) Zac Human Metapneumo PCR Nasal M.pneumoniae (PCR) Nasal SARS-CoV-2 (PCR) 06/13/23 10:50 WBC RBC Hgb Hct MCV MCH MCHC RDW Plt Count MPV Neut # (Auto) Lymph # (Auto) Reeves # (Auto) Eos # (Auto) Baso # (Auto) Absolute Nucleated RBC Total Counted Band Neuts % (Manual) Reactive Lymphs % (Man) Abnorm Lymph % (Manual) Metamyelocytes % Myelocytes % Nucleated RBC % Neutrophils # (Manual) Lymphocytes # (Manual) Monocytes # (Manual) Eosinophils # (Manual) Basophils # (Manual) Differential Comment RBC Morph Micro Appear Bld Gas Analysis Time 1051 Sample Site RIGHT RADIAL ABG pH 7.23 L ABG pCO2 47 H ABG pO2 58 L ABG HCO3 19.3 L ABG Total CO2 20.7 L ABG O2 Saturation 86 L* ABG Base Excess -8.0 L Kody Test POSITIVE O2 Delivery Device SIMPLE MASK O2 Liters/Min 5.00 Sodium Potassium Chloride Carbon Dioxide Anion Gap BUN Creatinine Estimated GFR (MDRD) Glucose Lactic Acid Calcium Phosphorus Magnesium Total Bilirubin AST ALT Alkaline Phosphatase Troponin I High Sens B-Natriuretic Peptide Total Protein Albumin Globulin Albumin/Globulin Ratio Lipase Nasal Adenovirus (PCR) Nasal B. parapertussis DNA (PCR) Nasal Coronavir 229E PCR Nasal Coronavir HKU1 PCR Nasal Coronavir NL63 PCR Nasal Coronavir OC43 PCR Nasal Enterovir/Rhinovir PCR Nasal Influenza B PCR Nasal Influenza A PCR Nasal Parainfluen 1 PCR Nasal Parainfluen 2 PCR Nasal Parainfluen 3 PCR Nasal Parainfluen 4 PCR Nasal RSV (PCR) Nasal B.pertussis DNA PCR Nasal C.pneumoniae (PCR) Zac Human Metapneumo PCR Nasal M.pneumoniae (PCR) Nasal SARS-CoV-2 (PCR) - Rads (name of study) chest xray Relevant Findings:: Prelim report reviewed, EMP independent interpretation of test (diffuse lower field infiltrates bilaterally. No effusion nor PTX. Some cephalization of the pattern, consider concurrent CHF.) PD Medical Decision Making - ED course Complexity details: reviewed results, considered differential, d/w patient, d/w oracle database consultant (hospitalist once beds became available on the med/surg unit. ) ED course: The patient claims 4 days of progressive cough, dyspnea, malaise with some fevers. She does have history of asthma and feels an exacerbation of that. She had been using her inhalers more often at home. She does not have nebulizers and has not on home oxygen. She was having more trouble breathing this morning and called EMS. They found her to be hypoxic in the upper 70s to lower 80s percent. Improved with oxygen and nebulizer treatments. She was given nebulizers x2 and Solu-Medrol on route. She seemed to respond to that and averted there concern for needing BiPAP. On arrival she was able to talk in sentences. She did have respiratory effort more of prolonged expiratory phase but also inspiratory as well. There was some wheezing noted. No coarse correction fine crackles. There were coarse sounds noted on the right in particular. She was given repeat nebulizer treatments. She was given some IV fluids for blood pressure in the upper 90s. Chest x-ray initially showed bilateral infiltrates concerning for bilateral pneumonia but there was some cephalization concerning for failure. No edema noted and she denied orthopnea. However I was prudent with fluid administration at first because of that. She was given subsequently about 1-1/2 L of fluid with the blood pressure now above 100 with the most recent reading 102/49. Oxygenation remained adequate with initially nasal cannula but she did feel she was breathing through her mouth more so we changed to a facemask that she found more comfortable. She was at 5 L/min with a blood gas showing sats of 86 so was increased to 8 L. PCO2 was in the 50s and pH 7.29. She is still awake and mentating well. I do not feel that she needs BiPAP at this time. However in talking to the hospitalist, the disposition was to place her in the unit for concern of increasing severity of breathing. I affirmed with the patient her CODE STATUS. She does want to be full code at this time. At this point the patient is stable with adequate oxygenation on partial facemask at 8 L, has a normal heart rate with a rhythm of apparent A-fib. This may be new for her. Her blood pressure is normotensive now at this time. The patient will be admitted to the hospital and the hospitalist service in the ICU. Departure - Departure Disposition: 66 [facility] DC/Xfer Clinical Impression: Dyspnea, Hypoxia, Pneumonia, Asthma, On total parenteral nutrition (TPN) Sepsis Qualifiers: Severe sepsis acute organ dysfunction type: acute respiratory failure Acute respiratory failure type: with hypoxia Condition: Stable Record reviewed to determine appropriate education?: Yes Discharge Date/Time: 06/13/23 13:14
[2023-06-13] MEDS ORDERED: levoFLOXacin 750 MG/150 ML 750 MG/150 ML BAG IV STA (08:24)
[2023-06-13 08:46] LABS: BASOPHILS % (AUTO) 2.3 %; EOSINOPHILS % (AUTO) 0.3 %; HCT - HEMATOCRIT 35.1 % (37.0-47.0); HGB - HEMOGLOBIN 11.2 g/dL (12.0-16.0); MEAN CORPUSCULAR HEMOGLOBIN 27.3 pg (27.0-31.0); MEAN CORPUSCULAR HGB CONC 31.9 g/dL (32.0-36.0); MEAN CORPUSCULAR VOLUME 85.6 fL (81.0-99.0); MEAN PLATELET VOLUME 11.1 fL (7.9-10.8); MONOCYTES % (AUTO) 3.5 %; NEUTROPHILS % (AUTO) 84.6 %; PLT - PLATELET COUNT 154 10^3/uL (130-450); RED CELL DISTRIBUTION WIDTH 15.8 % (12.0-15.0); WHITE BLOOD COUNT 3.5 x10^3/uL (4.8-10.8)
[2023-06-13 08:50] LABS: ABNORMAL LYMPHS % (MANUAL) 0 %
[2023-06-13 08:56] LABS: ALBUMIN/GLOBULIN RATIO 1.2 (1.0-2.2); ALKALINE PHOSPHATASE 122 IU/L (42-121); ALT ALANINE AMINOTRANSFERASE 9 IU/L (10-60); AST ASPARTATE AMINOTRANSFERASE 11 IU/L (10-42); BILIRUBIN,TOTAL 0.5 mg/dL (0.2-1.0); BUN - BLOOD UREA NITROGEN 25 mg/dL (6-20); CALCIUM 8.9 mg/dL (8.5-10.3); CARBON DIOXIDE - CO2 23 mmol/L (21-32); CHLORIDE 103 mmol/L (101-111); CREATININE 0.9 mg/dL (0.6-1.3); GFR - MDRD 66 (>89); GLUCOSE 166 mg/dL (74-104); LIPASE < 10 U/L (11-82); MAGNESIUM 2.2 mg/dL (1.7-2.3); PHOSPHORUS 1.7 mg/dL (2.5-5.0); POTASSIUM 3.5 mmol/L (3.5-4.5); SODIUM 133 mmol/L (135-145); TOTAL PROTEIN 5.6 g/dL (6.4-8.9)
[2023-06-13] MEDS ORDERED: IPRATROPIUM/ALBUTEROL 3 ML NEB INH STA (09:07)
[2023-06-13] MEDS ORDERED: BUDESONIDE 0.5 MG/2 ML NEB INH STA (09:08)
[2023-06-13 09:37] LABS: BAND NEUTROPHILS % (MANUAL) 32 %; DIFFERENTIAL COMMENT MANUAL DIFFERENTIAL; LYMPHOCYTES # (MANUAL) 0.5 10^3/uL (1.5-3.5); LYMPHOCYTES % (MANUAL) 13 %; METAMYELOCYTES % (MANUAL) 5 %; MYELOCYTES % (MANUAL) 3 %; NEUTROPHILS # (MANUAL) 2.7 10^3/uL (1.5-6.6); RBC MORPHOLOGY (MULTIPLE) 3+ ANISOCYTOSIS (NORMAL); REACTIVE LYMPHS % (MANUAL) 2 %
--- NOTE | 2023-06-13 09:37 | XRAY Report ---
PROCEDURE: Chest 1 View X-Ray INDICATIONS: dyspnea/cough 4 dayws TECHNIQUE: One view of the chest was acquired. COMPARISON: Single view the chest dated 04/29/2022 FINDINGS: Surgical changes and devices: Right tunnel catheter is unchanged. Lungs and pleura: There are bilateral perihilar and mid lung radiopacities which are more confluent on the left. No pleural effusion or pneumothorax. Mediastinum: Mediastinal contours appear normal. Heart size is normal. Bones and chest wall: No suspicious bony lesions. Overlying soft tissues appear unremarkable. IMPRESSION: Consolidative bilateral pulmonary radiopacities greater on the left than on the right. Findings are s uspicious for multifocal pneumonia. Early ARDS or atypical edema could also be considered in the diff erential. Reviewed by: Mena Carlson MD on 06/13/2023 9:36 AM PST Approved by: Mena Carlson MD on 06/13/2023 9:36 AM PST Station ID: [id number]
[2023-06-13 09:39] LABS: B. PARAPERTUSSIS- RESP PCR PAN NOT DETECTED; B. PERTUSSIS- RESP PCR PANEL NOT DETECTED; C. PNEUMONIAE- RESP PCR PANEL NOT DETECTED; CORONAVIRUS 229E-RESP PCR NOT DETECTED; CORONAVIRUS HKU1-RESP PCR NOT DETECTED; CORONAVIRUS NL63-RESP PCR NOT DETECTED; CORONAVIRUS OC43-RESP PCR NOT DETECTED; HUMAN METAPNEUMOVIRUS NOT DETECTED; INFLUENZA A- RESP PCR PANEL NOT DETECTED; INFLUENZA B - RESP PCR PANEL NOT DETECTED; M. PNEUMONIAE- RESP PCR PANEL NOT DETECTED; PARAINFLUENZA VIRUS 1 NOT DETECTED; PARAINFLUENZA VIRUS 2 NOT DETECTED; PARAINFLUENZA VIRUS 3 NOT DETECTED; PARAINFLUENZA VIRUS 4 NOT DETECTED; RHINOVIRUS/ENTEROVIRUS NOT DETECTED; RSV- RESP PCR PANEL NOT DETECTED; SARS-CoV-2 -RESP PCR PANEL NOT DETECTED
[2023-06-13] MEDS ORDERED: SODIUM CHLORIDE 0.9% 500 ML IV STA (10:03)
[2023-06-13] MEDS ORDERED: LORazepam 2 MG/ML VIAL IVP STA ×2 (10:33→12:01)
[2023-06-13 10:54] LABS: ABG PCO2 47 mmHg (34-45); ABG PH 7.23 (7.35-7.45); ABG PO2 58 mmHg (80-100)
[2023-06-13 10:55] LABS: ABG HCO3 19.3 mmol/L (22.0-26.0); ABG TCO2 20.7 MMOL/L (21.0-29.0); ALLEN TEST POSITIVE
[2023-06-13 10:58] LABS: ABG OXYGEN SATURATION 86 % (94-98)
[2023-06-13] MEDS ORDERED: KETOROLAC 15 MG/ML VIAL IVP STA (11:03)
[2023-06-13] MEDS ORDERED: ACETAMINOPHEN 325 MG TABLET PO PRN (12:23)
[2023-06-13] MEDS ORDERED: IPRATROPIUM/ALBUTEROL 3 ML NEB INH PRN (12:30)
[2023-06-13] MEDS ORDERED: traMADol 50 MG TABLET PO PRN (12:31)
[2023-06-13] MEDS ORDERED: HYDROcod/ACETAM 10 MG/325 MG TABLET PO PRN (12:31)
[2023-06-13] MEDS ORDERED: ALBUTEROL NEB 2.5 MG/3 ML INH STA (12:37)
--- NOTE | 2023-06-13 12:46 | HISTORY & PHYSICAL EXAMINATION ---
Chief Complaint - Chief Complaint Chief Complaint: SOA History of Present Illness - Admitted From Admitted From:: ED - History Obtained From History obtained from: ED provider and minimally from head nodding from the patient - History of Present Illness HPI Comment/Other: This is a 52-year-old female with a history of stomach cancer with resection, has a port, receives TPN and only takes liquids for a diet orally. She had a history of discitis requiring back surgery. There is a history of embolism to the leg and she is status post right BKA. She has a history of asthma and takes inhalers but not nebulizers or home O2 The patient came to the emergency room via ambulance this morning with complaints of 4 days of cough and shortness of breath. EMS found her with an O2 saturation of 70 to 80% on room air and in severe respiratory distress. She got 2 nebulizer treatments en route. She had 2 more nebulizered bronchodilator treatments given in the ER. There is continued wheezing. Her initial HR was 152. Her BP was 93/46 (MAP 61). She was administered 1.5 L saline and BP is 101. Her RR was 30. The patient had a blood gas done showing pH 7.23, PCO2 47, PO2 58 on 5 L O2 via mask. She had been now increased to oxygen 8 L supplemental with saturations of 90 to 95%. Her work-up shows that she has elevated BNP 1245, CXR shows bilateral infiltrates and cephalization of flow consistent with edema or ARDS. Respiratory PCR is negative. White blood count is depressed at 3.5 with 32% Bands. Lactic acid elevated at 3.3. The ER provider spoke to me about this patient. She will be admitted to the ICU on the Hospitalist service to treat acute respiratory failure with hypoxia, asthma exacerbation, new onset CHF, and bilateral pneumonia causing sepsis. Her CODE STATUS is Full Code. History - Past Medical History Cardiovascular: reports: None Respiratory: reports: Asthma, Shortness of breath Neuro: reports: None Endocrine/Autoimmune: reports: None GI: reports: Other (stomach ?CA with resection/surgery. Poor PO intake. Gets TPN.) [employer]ISTER: reports: None : reports: None HEENT: reports: Chronic hearing loss Psych: reports: Anxiety, Bipolar disorder Musculoskeletal: reports: Chronic back pain, Other (BKA) Derm: reports: None - Past Surgical History General: reports: Bowel surgery, Other (BKA) Ortho: reports: Spine surgery - Family & Social History Living arrangement: At home Living Situation: Alone - POLST Patient has POLST: Yes POLST Status: Full Code Meds/Allgy - Home Medications Home Medications: Ambulatory Orders Medication Instructions Recorded Confirmed Albuterol Sulf [Ventolin Hfa 1 - 2 puffs IH PRN PRN 06/13/21 06/13/23 Inhaler] Baclofen [Lioresal] 1 tablet ORAL PRN PRN 06/13/21 06/13/23 Cetirizine [ZyrTEC] 1 tab ORAL DAILY 06/13/21 06/13/23 Duloxetine HCl [Cymbalta] 60 mg PO DAILY 06/13/21 06/13/23 Hydrocodone/Acetaminophen 1 tablet ORAL PRN PRN 06/13/21 06/13/23 [Hydrocodone-Acetamin 10-325 mg] Montelukast [Singulair] 1 tab ORAL DAILY 06/13/21 06/13/23 lamoTRIgine [Lamictal] 2 tablet PO BID 06/13/21 06/13/23 traMADol [Ultram] 1 tablet ORAL PRN PRN 06/13/21 06/13/23 Gabapentin [Neurontin] 300 mg ORAL BID 11/05/22 06/13/23 Meloxicam, Submicronized 15 mg PO DAILY 11/06/22 06/13/23 [Meloxicam] - Allergies Allergies/Adverse Reactions: Allergies Allergy/AdvReac Type Severity Reaction Status Date / Time morphine Allergy Unknown Verified 06/13/23 08:05 Penicillins Allergy Unknown Verified 06/13/23 08:05 Review of Systems - Respiratory Respiratory: reports: Cough, Wheezing, SOB at rest, SOB with exertion - All Other Systems All Other Systems: reports: Other (She is in respiratory distress and does not speak in sentences) Exam - Vital Signs Reviewed Vital Signs: Yes Vital Signs: Vital Signs x48h Temp Pulse Resp BP Pulse Ox O2 Flow Rate 06/13/23 12:19 90 25 H 101/53 L 90 L 8 06/13/23 11:00 103 H 19 102/49 L 93 8 06/13/23 10:30 88 24 113/54 L 92 3.5 06/13/23 09:30 87 23 92/76 98 3.5 06/13/23 09:29 80 26 H 3 06/13/23 09:05 84 32 H 91/76 96 4 06/13/23 08:59 95 27 H 92/61 93 4 06/13/23 08:14 68 20 93/46 L 99 06/13/23 07:56 36.0 C L 152 H 22 98/53 L 93 - Physical Exam General Appearance: positive: Moderate distress (Respiratory distress, mouth breathing, has on Ventimask), Other (Thin female, appears older than her age) Eyes Bilateral: positive: No lid inflammation ENT: positive: No signs of dehydration Neck: positive: Nml inspection, No JVD Respiratory: positive: Wheezes (minimal wheezing but poor air movement in all lung sanchez) Cardiovascular: positive: Regular rate & rhythm (Distant heart sounds due to asthma) Abdomen: positive: Non-tender, No distention Skin: positive: Warm, Dry Extremities: positive: Non-tender, No pedal edema, Other (Right BKA) Neurologic/Psychiatric: positive: Motor nml, Other (She is mildly lethargic from having had Ativan in the ER. She is nodding her answers.) Sepsis Event Note (H) - Evaluation Current Stage of Sepsis: Sepsis Possible source of Sepsis: positive: Pulmonary - Sepsis Criteria Sepsis Criteria: Recorded Heart Rate greater than 90 bpm, Respiratory: Increasing oxygen requirements, WBC count greater than 10% bands, WBC count greater than 12,000 or less than 4000, MAP less than 65 mmHg, Metabolic: lactate > 2 mmol/L Conclusion/Plan - Problem List (1) Acute respiratory failure with hypoxia Conclusion/Plan: Patient has severe respiratory distress with RR 30, wheezing, bilateral pneumonia and possibly CHF Plan: Continue to give supplemental O2, keeping O2 saturations greater than 90% Treat the underlying asthma exacerbation, pneumonia and pulmonary edema (2) Sepsis Conclusion/Plan: The patient meets criteria for sepsis: Lactic acid >2, WBC < 4K, Bands > 10%, r espiratory rate very elevated, MAP less than 65, and her pulm status is the cause Plan: Recheck her lactic acid level now Decrease IV fluids because of the pulmonary edema however Admit to the ICU for aggressive management Qualifiers: Severe sepsis acute organ dysfunction type: acute respiratory failure Acute respiratory failure type: with hypoxia (3) Pneumonia Conclusion/Plan: Patient has bilateral pneumonia on chest x-ray Of concern is that she gets only oral feeds because of stomach surgery. There is a concern for aspiration therefore Plan: We will give supplemental O2 Mucinex for expectoration Obtain respiratory culture Continue with empiric iv Levaquin treatment Will add Flagyl IV for oral anaerobic organisms (4) Asthma exacerbation Conclusion/Plan: The patient has known asthma, uses Montelukast and inhalers but no steroids, nebulizers, no home O2 Plan: Start IV Solu-Medrol TID Continue with DuoNebs scheduled and every 4 hours as needed Continue with Pulmicort twice daily Continue with Montelukast, give this in p.m. Continue with her usual allergy meds Give supplemental O2, target sats >90% (5) New onset of congestive heart failure Conclusion/Plan: Chest x-ray read as having pulmonary edema BNP very elevated at 1245 The computer read her EKG is having A-fib. I do not agree. My interpretation of EKG : She has P waves and she is in MAT which is frequently seen with pulmonary disease Plan: Decrease IV fluids despite having sepsis, since pulm edema was seen on CXR Check troponins x2 Monitor on telemetry Obtain Echo to eval LVEF (6) On total parenteral nutrition (TPN) Conclusion/Plan: ComePlan: Will get stool and continue her usual TPN (7) History of gastric surgery Conclusion/Plan: Details are not known but her only diet is clear liquids Plan: Will order a clear liquid diet Aspiration precautions - Lab Results Fish Bones: 06/13/23 08:33 06/13/23 08:33 - Diagnostic Imaging Results Diagnostic Imaging Results: positive: Final report reviewed - Other Other Results/Comments: Attestation: The patient is expected to be discharged or transferred to another facility for 96 hours: Yes.
[2023-06-13] MEDS ORDERED: DEXTROSE 5%-0.9% NACL 1,000 ML IV SCH (13:00)
[2023-06-13] MEDS ORDERED: IPRATROPIUM 0.2 MG/ML NEB INH SCH (13:00)
[2023-06-13] MEDS ORDERED: CETIRIZINE 10 MG TABLET PO SCH (13:00)
[2023-06-13] MEDS: methylPREDNISolone SUCCINATE 125 MG/2 ML VIAL IVP SCH ×3 (13:39→21:18)
[2023-06-13] MEDS: SODIUM CHLORIDE FLUSH 0.9% 10 ML SYRINGE IVP PRN (13:46)
[2023-06-13] MEDS ORDERED: POTASSIUM PHOSPHATE 15 MMOL in SODIUM CHLORIDE 0.9% 250 ML IV ONE (13:55)
[2023-06-13] MEDS ORDERED: MORPHINE 2 MG/ML CARPUJECT IVP PRN (14:29)
[2023-06-13] MEDS: metroNIDAZOLE 500 MG/100 ML 500 MG/100 ML BAG IV SCH ×2 (15:11→23:16)
[2023-06-13] MEDS: IPRATROPIUM/ALBUTEROL 3 ML NEB INH SCH ×3 (15:15→19:55)
--- NOTE | 2023-06-13 16:42 | PHARMACY PROGRESS NOTE ---
- Best Possible Medication History Admit Date and Time: 06/13/23 1223 Processed by: Pharmacy Medication History completed: Yes Patient Interview: Pt unable to participate Secondary Source(s): Caregiver (SPOKE WITH CAREGIVER, WHO CAME TO HER HOUSE AND USED RX BOTTLES TO COMPARE. SHE ALSO REMEMBERS WHICH MEDS PT TAKES. CONFIRMED THAT PT TAKES BOTH LEXAPRO AND DULOXETINE.), Insurance records As the person ultimately responsible for medication therapy, providers are able to order a medication from an existing home medication list in [facility] via the "Reconcile Routine" prior to Confirmation of that medication by technical support representative. Such practice is discouraged except when the physician, in their clinical judgment, deems that a medical need exists for a medication without regard to previous use.
[2023-06-13] MEDS: SODIUM CHLORIDE FLUSH 0.9% 10 ML SYRINGE IVP SCH (17:04)
[2023-06-13] MEDS: TPN (CLINIMIX E 5/15) 2,000 ML with MULTIVITAMIN 10 ML, TRACE ELEMENTS 1 ML IV SCH ×3 (18:24)
[2023-06-13] MEDS ORDERED: LORazepam 2 MG/ML VIAL IVP PRN (18:40)
[2023-06-13] MEDS ORDERED: FAT EMULSION 20% 250 ML IV SCH (19:00)
[2023-06-13] MEDS ORDERED: HYDROcod/ACETAM 5/325 MG TABLET PO PRN (19:01)
[2023-06-13] MEDS ORDERED: ETOMIDATE 40 MG/20 ML VIAL IVP ONE ×2 (19:20→19:28)
[2023-06-13] MEDS ORDERED: ROCURONIUM 50 MG/5 ML VIAL IVP ONE (19:20)
[2023-06-13] MEDS ORDERED: ROCURONIUM 50 MG/5 ML VIAL ONE (19:28)
[2023-06-13] MEDS: PROPOFOL 1000 MG/100 ML 1,000 MG/100 ML BOTTLE IV SCH (19:28)
[2023-06-13] MEDS ORDERED: PROPOFOL 1000 MG/100 ML 1,000 MG/100 ML BOTTLE IV ONE (19:28)
[2023-06-13] MEDS ORDERED: NOREPINEPHRINE/0.9 % NS 8 MG/250 ML BAG IV ONE (19:33)
[2023-06-13] MEDS: BUDESONIDE 0.5 MG/2 ML NEB INH SCH (19:55)
--- NOTE | 2023-06-13 20:08 | XRAY Report ---
PROCEDURE: Chest for Line Placement INDICATIONS: ETT, OGT placement TECHNIQUE: One view of the chest was acquired. COMPARISON: None. FINDINGS: Surgical changes and devices: Right IJ central venous catheter tip projects over the low SVC. Endotr acheal tube tip projects over the midthoracic trachea. Feeding tube passes below the diaphragm. Lungs and pleura: Worsening airspace opacities, now diffuse. Mediastinum: Mediastinal contours appear normal. Heart size is normal. Bones and chest wall: No suspicious bony lesions. Overlying soft tissues appear unremarkable. IMPRESSION: Support devices project over the appropriate positions. Worsening airspace opacities, now diffuse. Differential remains severe infection, acute lung injury, severe pulmonary edema. Reviewed by: Mario Long on 06/13/2023 8:07 PM PST Approved by: Mario Long on 06/13/2023 8:07 PM PST Station ID: [id number]
--- NOTE | 2023-06-13 20:14 | MISCELLANEOUS PROVIDER NOTE ---
Miscellaneous Provider Note - - Note: I was called to the patient's room for an elective intubation. Patient's respiratory status worsening and her oxygen needs increasing despite being on high flow nasal cannula. Timeout was performed. Patient was on desk monitor with pulse ox in place. She was being preoxygenated with bag mask. She was given etomidate and rocuronium as part of rapid sequence intubation medications. Using an S4 blade with glide a scope patient was intubated orally with a 7.5 ET tube. Positive color change on ET CO2. Bilateral breath sounds were auscultated, no sounds heard epigastrically. Tube was secured at 22cm at the lip, she was placed on the ventilator by respiratory therapy. Post intubation sedation with propofol. Norepinephrine is on standby if needed. Tube placement confirmed with x-ray.
[2023-06-13 20:26] LABS: ABG BASE EXCESS -7.5 mmol/L (-2.0-3.0); ABG HCO3 18.7 mmol/L (22.0-26.0); ABG PCO2 40 mmHg (34-45); ABG PH 7.29 (7.35-7.45); ABG PO2 51 mmHg (80-100); ABG TCO2 19.9 MMOL/L (21.0-29.0)
[2023-06-13] MEDS: BUPRENORPHINE 7.5 MCG/HR TOP SCH (20:38)
[2023-06-13 20:42] LABS: ABG OXYGEN SATURATION 84 % (94-98)
[2023-06-13 20:43] LABS: ALLEN TEST POSITIVE
[2023-06-13] MEDS ORDERED: guaiFENesin 600 MG TABLET PO SCH (21:00)
[2023-06-13] MEDS ORDERED: NOREPINEPHRINE/0.9 % NS 8 MG/250 ML BAG IV SCH (21:00)
[2023-06-13] MEDS: lamoTRIgine 100 MG TABLET PO SCH (21:05)
[2023-06-13] MEDS: MONTELUKAST 10 MG TABLET PO SCH (21:05)
[2023-06-13] MEDS: GABAPENTIN 300 MG CAPSULE PO SCH (21:05)
[2023-06-13] MEDS: FAMOTIDINE 20 MG/2 ML VIAL IVP SCH (21:18)
[2023-06-13 21:50] LABS: ABG BASE EXCESS -15.2 mmol/L (-2.0-3.0); ABG HCO3 16.4 mmol/L (22.0-26.0); ABG OXYGEN SATURATION 98 % (94-98); ABG PO2 149 mmHg (80-100); ABG TCO2 18.4 MMOL/L (21.0-29.0)
[2023-06-13 21:51] LABS: ABG MODE OF VENTILATION SIMV; ABG RESPIRATORY RATE 16 b/min; ALLEN TEST POSITIVE
[2023-06-13] MEDS ORDERED: FUROSEMIDE 40 MG/4 ML VIAL IVP ONE (21:51)
[2023-06-13 21:54] LABS: ABG PCO2 66 mmHg (34-45); ABG PH 7.02 (7.35-7.45)
[2023-06-13] MEDS ORDERED: FUROSEMIDE 40 MG/4 ML VIAL ONE (22:03)
[2023-06-13] MEDS ORDERED: hydrALAZINE INJ 20 MG/ML VIAL IVP PRN (22:19)
[2023-06-13 23:33] LABS: CALCIUM, IONIZED 1.15 mmol/L (1.15-1.33)
[2023-06-13 23:36] LABS: VBG PH 7.028 (7.31-7.41)
[2023-06-13 23:42] LABS: ABG HCO3 12.7 mmol/L (22.0-26.0); ABG PCO2 56 mmHg (34-45); ABG PO2 72 mmHg (80-100); ABG TCO2 14.4 MMOL/L (21.0-29.0)
[2023-06-13 23:43] LABS: ABG BASE EXCESS -19.2 mmol/L (-2.0-3.0); ABG MODE OF VENTILATION SIMV; ABG OXYGEN SATURATION 89 % (94-98); ALLEN TEST POSITIVE
[2023-06-13 23:44] LABS: ABG RESPIRATORY RATE 20 b/min
[2023-06-13 23:44] LABS: MAGNESIUM 2.7 mg/dL (1.7-2.3); PHOSPHORUS 6.6 mg/dL (2.5-5.0)
[2023-06-13 23:46] LABS: POTASSIUM 5.5 mmol/L (3.5-4.5)
[2023-06-13 23:46] LABS: ABG PH 6.98 (7.35-7.45)
[2023-06-13] MEDS ORDERED: SODIUM BICARBONATE ABBOJECT 50 MEQ/50 ML SYRINGE IVP STA (23:58)
[2023-06-14] MEDS: SODIUM CHLORIDE FLUSH 0.9% 10 ML SYRINGE IVP SCH ×3 (00:06→16:45)
[2023-06-14] MEDS: PROPOFOL 1000 MG/100 ML 1,000 MG/100 ML BOTTLE IV SCH ×4 (00:42→17:47)
[2023-06-14 00:48] LABS: CALCIUM, IONIZED 1.18 mmol/L (1.15-1.33)
[2023-06-14 00:49] LABS: VBG PH 7.016 (7.31-7.41)
[2023-06-14 00:57] LABS: CALCIUM 8.9 mg/dL (8.5-10.3)
[2023-06-14 01:04] LABS: POTASSIUM 5.6 mmol/L (3.5-4.5)
[2023-06-14] MEDS ORDERED: ACETAMINOPHEN 1,000 MG/100 ML 1,000 MG/100 ML BAG IV ONE (01:08)
[2023-06-14 01:14] LABS: MAGNESIUM 2.5 mg/dL (1.7-2.3)
[2023-06-14] MEDS ORDERED: SODIUM BICARBONATE ABBOJECT 50 MEQ/50 ML SYRINGE IVP ONE (01:50)
[2023-06-14] MEDS ORDERED: INSULIN REGULAR HUMAN 300 UNIT/3 ML VIAL SUBQ ONE (01:51)
[2023-06-14] MEDS ORDERED: DEXTROSE 50% ABBOJECT 25 GM/50 ML SYRINGE IVP ONE (01:51)
[2023-06-14] MEDS: SODIUM CHLORIDE FLUSH 0.9% 10 ML SYRINGE IVP PRN (02:19)
[2023-06-14 04:49] LABS: BASOPHILS % (AUTO) 0.1 %; EOSINOPHILS % (AUTO) 0.1 %; HGB - HEMOGLOBIN 13.4 g/dL (12.0-16.0); LYMPHOCYTES # (AUTO) 0.6 10^3/uL (1.5-3.5); LYMPHOCYTES % (AUTO) 3.2 %; MEAN CORPUSCULAR HEMOGLOBIN 28.4 pg (27.0-31.0); MEAN CORPUSCULAR HGB CONC 33.5 g/dL (32.0-36.0); MEAN CORPUSCULAR VOLUME 84.7 fL (81.0-99.0); MEAN PLATELET VOLUME 11.1 fL (7.9-10.8); MONOCYTES # (AUTO) 0.4 10^3/uL (0.0-1.0); MONOCYTES % (AUTO) 2.3 %; NEUTROPHILS % (AUTO) 93.2 %; NRBC ABSOLUTE COUNT (AUTO) 0.18 x10^3/uL; PLT - PLATELET COUNT 190 10^3/uL (130-450); RED BLOOD COUNT 4.72 10^6/uL (4.20-5.40); RED CELL DISTRIBUTION WIDTH 15.9 % (12.0-15.0); WHITE BLOOD COUNT 18.2 x10^3/uL (4.8-10.8)
[2023-06-14 05:21] LABS: ALBUMIN 3.2 g/dL (3.2-5.5); PREALBUMIN < 3 mg/dL (17-34); TRIGLYCERIDES 733 mg/dL (48-352)
[2023-06-14 05:22] LABS: ALBUMIN/GLOBULIN RATIO 1.2 (1.0-2.2); ALKALINE PHOSPHATASE 259 IU/L (42-121); ALT ALANINE AMINOTRANSFERASE 36 IU/L (10-60); AST ASPARTATE AMINOTRANSFERASE 84 IU/L (10-42); BILIRUBIN,TOTAL 0.9 mg/dL (0.2-1.0); BUN - BLOOD UREA NITROGEN 34 mg/dL (6-20); CALCIUM 8.5 mg/dL (8.5-10.3); CARBON DIOXIDE - CO2 21 mmol/L (21-32); CHLORIDE 103 mmol/L (101-111); CREATININE 1.2 mg/dL (0.6-1.3); GFR - MDRD 48 (>89); GLUCOSE 324 mg/dL (74-104); MAGNESIUM 2.1 mg/dL (1.7-2.3); PHOSPHORUS 3.7 mg/dL (2.5-5.0); POTASSIUM 4.3 mmol/L (3.5-4.5); SODIUM 136 mmol/L (135-145); TOTAL PROTEIN 5.8 g/dL (6.4-8.9)
[2023-06-14 05:34] LABS: VBG PH 7.296 (7.31-7.41)
[2023-06-14 05:35] LABS: CALCIUM, IONIZED 1.08 mmol/L (1.15-1.33)
[2023-06-14] MEDS ORDERED: CALCIUM GLUC 1,000MG/50ML-NACL 1,000 MG/50 ML BAG IV ONE (05:36)
[2023-06-14] MEDS: methylPREDNISolone SUCCINATE 125 MG/2 ML VIAL IVP SCH ×3 (05:41→23:15)
[2023-06-14] MEDS: BUDESONIDE 0.5 MG/2 ML NEB INH SCH ×2 (06:01→17:34)
[2023-06-14] MEDS: IPRATROPIUM/ALBUTEROL 3 ML NEB INH SCH ×4 (06:01→21:30)
[2023-06-14 06:39] LABS: LDL CHOLESTEROL,DIRECT 16 mg/dL (75-193)
[2023-06-14] MEDS: metroNIDAZOLE 500 MG/100 ML 500 MG/100 ML BAG IV SCH ×3 (06:43→23:18)
[2023-06-14 08:13] LABS: PLATELET ESTIMATE, MANUAL NORMAL (130-450,000) (NORMAL); PLATELET MORPHOLOGY NORMAL APPEARANCE (NORMAL); RBC MORPHOLOGY (MULTIPLE) 3+ ANISOCYTOSIS (NORMAL)
[2023-06-14 08:14] LABS: DIFFERENTIAL COMMENT MANUAL=AUTO DIFF
[2023-06-14] MEDS: FUROSEMIDE 40 MG/4 ML VIAL IVP SCH ×2 (08:20→20:41)
[2023-06-14] MEDS: ENOXAPARIN 40 MG/0.4 ML SYRINGE SUBQ SCH (08:21)
[2023-06-14] MEDS: FAMOTIDINE 20 MG/2 ML VIAL IVP SCH ×2 (08:21→20:41)
[2023-06-14] MEDS: levoFLOXacin 750 MG/150 ML 750 MG/150 ML BAG IV SCH (08:26)
[2023-06-14] MEDS ORDERED: BACLOFEN 10 MG TABLET PO SCH (09:00)
[2023-06-14] MEDS ORDERED: ATOMOXETINE HCL 80 MG PO SCH (09:00)
[2023-06-14] MEDS ORDERED: NOREPINEPHRINE/0.9 % NS 8 MG/250 ML BAG IV SCH (10:31)
[2023-06-14] MEDS ORDERED: fentaNYL 2,500 MCG in SODIUM CHLORIDE 0.9% 200 ML IV SCH (11:00)
[2023-06-14] MEDS: DULoxetine 60 MG CAPSULE PO SCH (11:01)
[2023-06-14] MEDS: GABAPENTIN 300 MG CAPSULE PO SCH ×2 (11:01→20:48)
--- NOTE | 2023-06-14 11:02 | XRAY Report ---
PROCEDURE: Chest for Line Placement INDICATIONS: Recheck NG tube placement TECHNIQUE: One view of the chest was acquired. COMPARISON: June 13, 2023 FINDINGS: Surgical changes and devices: Right central catheter with tip in the superior cavoatrial junction. E T tube measures 3.5 cm from the lennox. Enteric tube courses below the diaphragm off the [id number] w. Surgical clips over the mediastinum and right chest wall Lungs and pleura: Extensive groundglass opacities throughout the bilateral lungs greatest within the left upper lobe. No pneumothorax Mediastinum: Mediastinal contours appear normal. Heart size is normal. Bones and chest wall: No suspicious bony lesions. Overlying soft tissues appear unremarkable. IMPRESSION: Appropriate positioning of support devices. Extensive groundglass opacities throughout bilateral lungs with slight improved aeration. Reviewed by: Woody Hanson MD on 06/14/2023 10:01 AM [facility] Approved by: Woody Hanson MD on 06/14/2023 10:01 AM [facility] Station ID: [id number]
[2023-06-14 11:18] LABS: ESTIMATED AVERAGE GLUCOSE 100 mg/dL (70-100); HEMOGLOBIN A1c% 5.1 % (4.27-6.07)
[2023-06-14] MEDS: fentaNYL 2,500 MCG/250 ML 2,500 MCG/250 ML BAG IV SCH (11:25)
[2023-06-14] MEDS ORDERED: INSULIN REGULAR HUMAN 300 UNIT/3 ML VIAL SUBQ SCH (12:00)
[2023-06-14 13:11] LABS: CALCIUM 8.3 mg/dL (8.5-10.3); CREATININE 1.2 mg/dL (0.6-1.3); POTASSIUM 3.2 mmol/L (3.5-4.5)
[2023-06-14] MEDS: POTASSIUM CHLOR 20 MEQ/100 ML 20 MEQ/100 ML BAG IV SCH ×2 (13:31→14:40)
[2023-06-14 14:42] LABS: ABG BASE EXCESS 4.2 mmol/L (-2.0-3.0); ABG HCO3 28.4 mmol/L (22.0-26.0); ABG PCO2 41 mmHg (34-45); ABG PH 7.46 (7.35-7.45); ABG PO2 80 mmHg (80-100); ABG TCO2 29.6 MMOL/L (21.0-29.0)
[2023-06-14 14:43] LABS: ABG MODE OF VENTILATION SIMV; ABG OXYGEN SATURATION 96 % (94-98); ABG RESPIRATORY RATE 20 b/min; ALLEN TEST POSITIVE
[2023-06-14] MEDS: ACETAMINOPHEN 1,000 MG/100 ML 1,000 MG/100 ML BAG IV PRN (16:27)
[2023-06-14] MEDS ORDERED: POTASSIUM CHLOR 20 MEQ/100 ML 20 MEQ/100 ML BAG IV ONE (18:16)
[2023-06-14] MEDS: INSULIN REGULAR HUMAN 300 UNIT/3 ML VIAL SUBQ SCH (18:19)
[2023-06-14] MEDS: TPN (CLINIMIX E 5/15) 2,000 ML with MULTIVITAMIN 10 ML, TRACE ELEMENTS 1 ML IV SCH ×3 (18:39)
--- NOTE | 2023-06-14 19:33 | PROVIDER PROGRESS NOTE ---
Subjective - Subjective Pt reports feeling: Worse (She was intubated and placed on vent last night, is on Propofol sedative drip) Objective - Vital Signs/Intake & Output Reviewed Vital Signs: Yes Vital Signs: Vital Signs Temp Pulse Pulse Resp BP Pulse Ox 06/14/23 19:00 37.4 C 94 20 104/63 97 06/14/23 18:00 37.5 C 96 23 109/57 L 97 06/14/23 17:40 90 22 06/14/23 17:37 99 06/14/23 17:00 37.7 C 95 25 H 98/60 97 06/14/23 16:00 37.5 C 96 28 H 101/65 96 Intake & Output: Intake & Output 06/11/23 06/12/23 06/13/23 06/14/23 23:59 23:59 23:59 23:59 Intake Total 2235.804 3252.152 Output Total 215 3535 Balance 2020.804 -282.848 - Objective General Appearance: positive: Other (Sedated on IV sedative drip, intubated on vent) Eyes Bilateral: positive: No lid inflammation ENT: positive: No signs of dehydration Neck: positive: Nml inspection Respiratory: positive: Breath sounds nml (on vent) Cardiovascular: positive: Regular rate & rhythm, No murmur Abdomen: positive: No distention Skin: positive: Warm, Dry Extremities: positive: No pedal edema, Other (R BKA) Neurologic/Psychiatric: positive: Other (Sedated on IV sedative drip while intubated on the vent) - Lab Results Fish Bones: 06/15/23 04:33 06/15/23 04:33 Other Labs: Lab Results x24hrs 06/14/23 06/14/23 06/14/23 Range/Units 18:06 17:00 14:36 WBC (4.8-10.8) x10^3/uL RBC (4.20-5.40) 10^6/uL Hgb (12.0-16.0) g/dL Hct (37.0-47.0) % MCV (81.0-99.0) fL MCH (27.0-31.0) pg MCHC (32.0-36.0) g/dL RDW (12.0-15.0) % Plt Count (130-450) 10^3/uL MPV (7.9-10.8) fL Neut # (Auto) (1.5-6.6) 10^3/uL Lymph # (Auto) (1.5-3.5) 10^3/uL Webster # (Auto) (0.0-1.0) 10^3/uL Eos # (Auto) (0.0-0.7) 10^3/uL Baso # (Auto) (0.0-0.1) 10^3/uL Absolute Nucleated RBC x10^3/uL Band Neuts % (Manual) Abnorm Lymph % (Manual) Nucleated RBC % /100WBC Neutrophils # (Manual) Lymphocytes # (Manual) Monocytes # (Manual) Eosinophils # (Manual) Basophils # (Manual) Differential Comment Platelet Estimate (NORMAL) Platelet Morphology (NORMAL) RBC Morph Micro Appear (NORMAL) Bld Gas Analysis Time 1430 Sample Site RIGHT RADIAL ABG pH 7.46 H (7.35-7.45) ABG pCO2 41 (34-45) mmHg ABG pO2 80 (80-100) mmHg ABG HCO3 28.4 H (22.0-26.0) mmol/L ABG Total CO2 29.6 H (21.0-29.0) MMOL/L ABG O2 Saturation 96 (94-98) % ABG Base Excess 4.2 H (-2.0-3.0) mmol/L Kody Test POSITIVE VBG pH (7.31-7.41) Ionized Calcium (1.15-1.33) mmol/L Respiration Rate 20 b/min O2 Delivery Device VENTILATOR O2 Liters/Min LPM Vent Mode SIMV FiO2 60.00 Tidal Volume 420 mL PEEP 5 cmH2O Pressure Support Vent 10 cmH2O Sodium (135-145) mmol/L Potassium 3.7 (3.5-4.5) mmol/L Chloride (101-111) mmol/L Carbon Dioxide (21-32) mmol/L Anion Gap (6-13) BUN (6-20) mg/dL Creatinine (0.6-1.3) mg/dL Estimated GFR (MDRD) (>89) Glucose (74-104) mg/dL POC Whole Bld Glucose 227 H (70 - 100) mg/dL Estimat Average Glucose (70-100) mg/dL Hemoglobin A1c % (4.27-6.07) % Calcium (8.5-10.3) mg/dL Phosphorus (2.5-5.0) mg/dL Magnesium (1.7-2.3) mg/dL Total Bilirubin (0.2-1.0) mg/dL AST (10-42) IU/L ALT (10-60) IU/L Alkaline Phosphatase (42-121) IU/L B-Natriuretic Peptide (5-100) pg/mL Total Protein (6.4-8.9) g/dL Albumin (3.2-5.5) g/dL Globulin (2.1-4.2) g/dL Albumin/Globulin Ratio (1.0-2.2) Prealbumin (17-34) mg/dL Triglycerides (48-352) mg/dL LDL Cholesterol Direct (75-193) mg/dL dLDL/HDL Ratio 06/14/23 06/14/23 06/14/23 Range/Units 12:48 11:46 09:02 WBC (4.8-10.8) x10^3/uL RBC (4.20-5.40) 10^6/uL Hgb (12.0-16.0) g/dL Hct (37.0-47.0) % MCV (81.0-99.0) fL MCH (27.0-31.0) pg MCHC (32.0-36.0) g/dL RDW (12.0-15.0) % Plt Count (130-450) 10^3/uL MPV (7.9-10.8) fL Neut # (Auto) (1.5-6.6) 10^3/uL Lymph # (Auto) (1.5-3.5) 10^3/uL Webster # (Auto) (0.0-1.0) 10^3/uL Eos # (Auto) (0.0-0.7) 10^3/uL Baso # (Auto) (0.0-0.1) 10^3/uL Absolute Nucleated RBC x10^3/uL Band Neuts % (Manual) Abnorm Lymph % (Manual) Nucleated RBC % /100WBC Neutrophils # (Manual) Lymphocytes # (Manual) Monocytes # (Manual) Eosinophils # (Manual) Basophils # (Manual) Differential Comment Platelet Estimate (NORMAL) Platelet Morphology (NORMAL) RBC Morph Micro Appear (NORMAL) Bld Gas Analysis Time Sample Site ABG pH (7.35-7.45) ABG pCO2 (34-45) mmHg ABG pO2 (80-100) mmHg ABG HCO3 (22.0-26.0) mmol/L ABG Total CO2 (21.0-29.0) MMOL/L ABG O2 Saturation (94-98) % ABG Base Excess (-2.0-3.0) mmol/L Kody Test VBG pH (7.31-7.41) Ionized Calcium (1.15-1.33) mmol/L Respiration Rate b/min O2 Delivery Device O2 Liters/Min LPM Vent Mode FiO2 Tidal Volume mL PEEP cmH2O Pressure Support Vent cmH2O Sodium 137 (135-145) mmol/L Potassium 3.2 L (3.5-4.5) mmol/L Chloride 100 L (101-111) mmol/L Carbon Dioxide 25 (21-32) mmol/L Anion Gap 12.0 (6-13) BUN 40 H (6-20) mg/dL Creatinine 1.2 (0.6-1.3) mg/dL Estimated GFR (MDRD) 48 L (>89) Glucose 299 H (74-104) mg/dL POC Whole Bld Glucose 301 H 266 H (70 - 100) mg/dL Estimat Average Glucose (70-100) mg/dL Hemoglobin A1c % (4.27-6.07) % Calcium 8.3 L (8.5-10.3) mg/dL Phosphorus (2.5-5.0) mg/dL Magnesium (1.7-2.3) mg/dL Total Bilirubin (0.2-1.0) mg/dL AST (10-42) IU/L ALT (10-60) IU/L Alkaline Phosphatase (42-121) IU/L B-Natriuretic Peptide (5-100) pg/mL Total Protein (6.4-8.9) g/dL Albumin (3.2-5.5) g/dL Globulin (2.1-4.2) g/dL Albumin/Globulin Ratio (1.0-2.2) Prealbumin (17-34) mg/dL Triglycerides (48-352) mg/dL LDL Cholesterol Direct (75-193) mg/dL dLDL/HDL Ratio 06/14/23 06/14/23 06/14/23 Range/Units 08:33 05:38 04:27 WBC (4.8-10.8) x10^3/uL RBC (4.20-5.40) 10^6/uL Hgb (12.0-16.0) g/dL Hct (37.0-47.0) % MCV (81.0-99.0) fL MCH (27.0-31.0) pg MCHC (32.0-36.0) g/dL RDW (12.0-15.0) % Plt Count (130-450) 10^3/uL MPV (7.9-10.8) fL Neut # (Auto) (1.5-6.6) 10^3/uL Lymph # (Auto) (1.5-3.5) 10^3/uL Webster # (Auto) (0.0-1.0) 10^3/uL Eos # (Auto) (0.0-0.7) 10^3/uL Baso # (Auto) (0.0-0.1) 10^3/uL Absolute Nucleated RBC x10^3/uL Band Neuts % (Manual) Abnorm Lymph % (Manual) Nucleated RBC % /100WBC Neutrophils # (Manual) Lymphocytes # (Manual) Monocytes # (Manual) Eosinophils # (Manual) Basophils # (Manual) Differential Comment Platelet Estimate (NORMAL) Platelet Morphology (NORMAL) RBC Morph Micro Appear (NORMAL) Bld Gas Analysis Time Sample Site ABG pH (7.35-7.45) ABG pCO2 (34-45) mmHg ABG pO2 (80-100) mmHg ABG HCO3 (22.0-26.0) mmol/L ABG Total CO2 (21.0-29.0) MMOL/L ABG O2 Saturation (94-98) % ABG Base Excess (-2.0-3.0) mmol/L Kody Test VBG pH (7.31-7.41) Ionized Calcium (1.15-1.33) mmol/L Respiration Rate b/min O2 Delivery Device O2 Liters/Min LPM Vent Mode FiO2 Tidal Volume mL PEEP cmH2O Pressure Support Vent cmH2O Sodium (135-145) mmol/L Potassium (3.5-4.5) mmol/L Chloride (101-111) mmol/L Carbon Dioxide (21-32) mmol/L Anion Gap (6-13) BUN (6-20) mg/dL Creatinine (0.6-1.3) mg/dL Estimated GFR (MDRD) (>89) Glucose (74-104) mg/dL POC Whole Bld Glucose 253 H (70 - 100) mg/dL Estimat Average Glucose 100 (70-100) mg/dL Hemoglobin A1c % 5.1 (4.27-6.07) % Calcium (8.5-10.3) mg/dL Phosphorus (2.5-5.0) mg/dL Magnesium (1.7-2.3) mg/dL Total Bilirubin (0.2-1.0) mg/dL AST (10-42) IU/L ALT (10-60) IU/L Alkaline Phosphatase (42-121) IU/L B-Natriuretic Peptide 1313 H (5-100) pg/mL Total Protein (6.4-8.9) g/dL Albumin (3.2-5.5) g/dL Globulin (2.1-4.2) g/dL Albumin/Globulin Ratio (1.0-2.2) Prealbumin (17-34) mg/dL Triglycerides (48-352) mg/dL LDL Cholesterol Direct (75-193) mg/dL dLDL/HDL Ratio 06/14/23 06/14/23 06/14/23 Range/Units 04:27 04:27 04:27 WBC (4.8-10.8) x10^3/uL RBC (4.20-5.40) 10^6/uL Hgb (12.0-16.0) g/dL Hct (37.0-47.0) % MCV (81.0-99.0) fL MCH (27.0-31.0) pg MCHC (32.0-36.0) g/dL RDW (12.0-15.0) % Plt Count (130-450) 10^3/uL MPV (7.9-10.8) fL Neut # (Auto) (1.5-6.6) 10^3/uL Lymph # (Auto) (1.5-3.5) 10^3/uL Webster # (Auto) (0.0-1.0) 10^3/uL Eos # (Auto) (0.0-0.7) 10^3/uL Baso # (Auto) (0.0-0.1) 10^3/uL Absolute Nucleated RBC x10^3/uL Band Neuts % (Manual) Abnorm Lymph % (Manual) Nucleated RBC % /100WBC Neutrophils # (Manual) Lymphocytes # (Manual) Monocytes # (Manual) Eosinophils # (Manual) Basophils # (Manual) Differential Comment Platelet Estimate (NORMAL) Platelet Morphology (NORMAL) RBC Morph Micro Appear (NORMAL) Bld Gas Analysis Time Sample Site ABG pH (7.35-7.45) ABG pCO2 (34-45) mmHg ABG pO2 (80-100) mmHg ABG HCO3 (22.0-26.0) mmol/L ABG Total CO2 (21.0-29.0) MMOL/L ABG O2 Saturation (94-98) % ABG Base Excess (-2.0-3.0) mmol/L Kody Test VBG pH 7.296 L (7.31-7.41) Ionized Calcium 1.08 L (1.15-1.33) mmol/L Respiration Rate b/min O2 Delivery Device O2 Liters/Min LPM Vent Mode FiO2 Tidal Volume mL PEEP cmH2O Pressure Support Vent cmH2O Sodium 136 (135-145) mmol/L Potassium 4.3 (3.5-4.5) mmol/L Chloride 103 (101-111) mmol/L Carbon Dioxide 21 (21-32) mmol/L Anion Gap 12.0 (6-13) BUN 34 H (6-20) mg/dL Creatinine 1.2 (0.6-1.3) mg/dL Estimated GFR (MDRD) 48 L (>89) Glucose 324 H (74-104) mg/dL POC Whole Bld Glucose (70 - 100) mg/dL Estimat Average Glucose (70-100) mg/dL Hemoglobin A1c % (4.27-6.07) % Calcium 8.5 (8.5-10.3) mg/dL Phosphorus 3.7 (2.5-5.0) mg/dL Magnesium 2.1 (1.7-2.3) mg/dL Total Bilirubin 0.9 (0.2-1.0) mg/dL AST 84 H (10-42) IU/L ALT 36 (10-60) IU/L Alkaline Phosphatase 259 H (42-121) IU/L B-Natriuretic Peptide (5-100) pg/mL Total Protein 5.8 L (6.4-8.9) g/dL Albumin 3.2 (3.2-5.5) g/dL Globulin 2.6 (2.1-4.2) g/dL Albumin/Globulin Ratio 1.2 (1.0-2.2) Prealbumin < 3 L (17-34) mg/dL Triglycerides 733 H (48-352) mg/dL LDL Cholesterol Direct 16 L (75-193) mg/dL dLDL/HDL Ratio Not Reportable 06/14/23 06/14/23 06/14/23 Range/Units 04:27 00:30 00:30 WBC 18.2 H (4.8-10.8) x10^3/uL RBC 4.72 (4.20-5.40) 10^6/uL Hgb 13.4 (12.0-16.0) g/dL Hct 40.0 (37.0-47.0) % MCV 84.7 (81.0-99.0) fL MCH 28.4 (27.0-31.0) pg MCHC 33.5 (32.0-36.0) g/dL RDW 15.9 H (12.0-15.0) % Plt Count 190 (130-450) 10^3/uL MPV 11.1 H (7.9-10.8) fL Neut # (Auto) 17.0 H (1.5-6.6) 10^3/uL Lymph # (Auto) 0.6 L (1.5-3.5) 10^3/uL Webster # (Auto) 0.4 (0.0-1.0) 10^3/uL Eos # (Auto) 0.0 (0.0-0.7) 10^3/uL Baso # (Auto) 0.0 (0.0-0.1) 10^3/uL Absolute Nucleated RBC 0.18 x10^3/uL Band Neuts % (Manual) Not Reportable Abnorm Lymph % (Manual) Not Reportable Nucleated RBC % 1.0 /100WBC Neutrophils # (Manual) Not Reportable Lymphocytes # (Manual) Not Reportable Monocytes # (Manual) Not Reportable Eosinophils # (Manual) Not Reportable Basophils # (Manual) Not Reportable Differential Comment MANUAL=AUTO DIFF Platelet Estimate NORMAL (130-450,000) (NORMAL) Platelet Morphology NORMAL APPEARANCE (NORMAL) RBC Morph Micro Appear 3+ ANISOCYTOSIS (NORMAL) Bld Gas Analysis Time Sample Site ABG pH (7.35-7.45) ABG pCO2 (34-45) mmHg ABG pO2 (80-100) mmHg ABG HCO3 (22.0-26.0) mmol/L ABG Total CO2 (21.0-29.0) MMOL/L ABG O2 Saturation (94-98) % ABG Base Excess (-2.0-3.0) mmol/L Kody Test VBG pH 7.016 L* (7.31-7.41) Ionized Calcium 1.18 (1.15-1.33) mmol/L Respiration Rate b/min O2 Delivery Device O2 Liters/Min LPM Vent Mode FiO2 Tidal Volume mL PEEP cmH2O Pressure Support Vent cmH2O Sodium (135-145) mmol/L Potassium 5.6 H (3.5-4.5) mmol/L Chloride (101-111) mmol/L Carbon Dioxide (21-32) mmol/L Anion Gap (6-13) BUN (6-20) mg/dL Creatinine (0.6-1.3) mg/dL Estimated GFR (MDRD) (>89) Glucose (74-104) mg/dL POC Whole Bld Glucose (70 - 100) mg/dL Estimat Average Glucose (70-100) mg/dL Hemoglobin A1c % (4.27-6.07) % Calcium 8.9 (8.5-10.3) mg/dL Phosphorus (2.5-5.0) mg/dL Magnesium (1.7-2.3) mg/dL Total Bilirubin (0.2-1.0) mg/dL AST (10-42) IU/L ALT (10-60) IU/L Alkaline Phosphatase (42-121) IU/L B-Natriuretic Peptide (5-100) pg/mL Total Protein (6.4-8.9) g/dL Albumin (3.2-5.5) g/dL Globulin (2.1-4.2) g/dL Albumin/Globulin Ratio (1.0-2.2) Prealbumin (17-34) mg/dL Triglycerides (48-352) mg/dL LDL Cholesterol Direct (75-193) mg/dL dLDL/HDL Ratio 06/14/23 06/13/23 06/13/23 Range/Units 00:30 23:30 23:21 WBC (4.8-10.8) x10^3/uL RBC (4.20-5.40) 10^6/uL Hgb (12.0-16.0) g/dL Hct (37.0-47.0) % MCV (81.0-99.0) fL MCH (27.0-31.0) pg MCHC (32.0-36.0) g/dL RDW (12.0-15.0) % Plt Count (130-450) 10^3/uL MPV (7.9-10.8) fL Neut # (Auto) (1.5-6.6) 10^3/uL Lymph # (Auto) (1.5-3.5) 10^3/uL Webster # (Auto) (0.0-1.0) 10^3/uL Eos # (Auto) (0.0-0.7) 10^3/uL Baso # (Auto) (0.0-0.1) 10^3/uL Absolute Nucleated RBC x10^3/uL Band Neuts % (Manual) Abnorm Lymph % (Manual) Nucleated RBC % /100WBC Neutrophils # (Manual) Lymphocytes # (Manual) Monocytes # (Manual) Eosinophils # (Manual) Basophils # (Manual) Differential Comment Platelet Estimate (NORMAL) Platelet Morphology (NORMAL) RBC Morph Micro Appear (NORMAL) Bld Gas Analysis Time 2337 Sample Site RIGHT RADIAL ABG pH 6.98 L* (7.35-7.45) ABG pCO2 56 H (34-45) mmHg ABG pO2 72 L (80-100) mmHg ABG HCO3 12.7 L (22.0-26.0) mmol/L ABG Total CO2 14.4 L (21.0-29.0) MMOL/L ABG O2 Saturation 89 L (94-98) % ABG Base Excess -19.2 L (-2.0-3.0) mmol/L Kody Test POSITIVE VBG pH (7.31-7.41) Ionized Calcium (1.15-1.33) mmol/L Respiration Rate 20 b/min O2 Delivery Device VENTILATOR O2 Liters/Min LPM Vent Mode SIMV FiO2 80.00 Tidal Volume 420 mL PEEP 5 cmH2O Pressure Support Vent 10 cmH2O Sodium (135-145) mmol/L Potassium (3.5-4.5) mmol/L Chloride (101-111) mmol/L Carbon Dioxide (21-32) mmol/L Anion Gap (6-13) BUN (6-20) mg/dL Creatinine (0.6-1.3) mg/dL Estimated GFR (MDRD) (>89) Glucose 287 H (74-104) mg/dL POC Whole Bld Glucose (70 - 100) mg/dL Estimat Average Glucose (70-100) mg/dL Hemoglobin A1c % (4.27-6.07) % Calcium (8.5-10.3) mg/dL Phosphorus 7.0 H (2.5-5.0) mg/dL Magnesium 2.5 H (1.7-2.3) mg/dL Total Bilirubin (0.2-1.0) mg/dL AST (10-42) IU/L ALT (10-60) IU/L Alkaline Phosphatase (42-121) IU/L B-Natriuretic Peptide (5-100) pg/mL Total Protein (6.4-8.9) g/dL Albumin (3.2-5.5) g/dL Globulin (2.1-4.2) g/dL Albumin/Globulin Ratio (1.0-2.2) Prealbumin (17-34) mg/dL Triglycerides (48-352) mg/dL LDL Cholesterol Direct (75-193) mg/dL dLDL/HDL Ratio 06/13/23 06/13/23 06/13/23 Range/Units 23:21 23:21 21:40 WBC (4.8-10.8) x10^3/uL RBC (4.20-5.40) 10^6/uL Hgb (12.0-16.0) g/dL Hct (37.0-47.0) % MCV (81.0-99.0) fL MCH (27.0-31.0) pg MCHC (32.0-36.0) g/dL RDW (12.0-15.0) % Plt Count (130-450) 10^3/uL MPV (7.9-10.8) fL Neut # (Auto) (1.5-6.6) 10^3/uL Lymph # (Auto) (1.5-3.5) 10^3/uL Webster # (Auto) (0.0-1.0) 10^3/uL Eos # (Auto) (0.0-0.7) 10^3/uL Baso # (Auto) (0.0-0.1) 10^3/uL Absolute Nucleated RBC x10^3/uL Band Neuts % (Manual) Abnorm Lymph % (Manual) Nucleated RBC % /100WBC Neutrophils # (Manual) Lymphocytes # (Manual) Monocytes # (Manual) Eosinophils # (Manual) Basophils # (Manual) Differential Comment Platelet Estimate (NORMAL) Platelet Morphology (NORMAL) RBC Morph Micro Appear (NORMAL) Bld Gas Analysis Time 2146 Sample Site RIGHT RADIAL ABG pH 7.02 L* (7.35-7.45) ABG pCO2 66 H* (34-45) mmHg ABG pO2 149 H (80-100) mmHg ABG HCO3 16.4 L (22.0-26.0) mmol/L ABG Total CO2 18.4 L (21.0-29.0) MMOL/L ABG O2 Saturation 98 (94-98) % ABG Base Excess -15.2 L (-2.0-3.0) mmol/L Kody Test POSITIVE VBG pH 7.028 L* (7.31-7.41) Ionized Calcium 1.15 (1.15-1.33) mmol/L Respiration Rate 16 b/min O2 Delivery Device VENTILATOR O2 Liters/Min LPM Vent Mode SIMV FiO2 100.00 Tidal Volume 400 mL PEEP 12 cmH2O Pressure Support Vent 10 cmH2O Sodium (135-145) mmol/L Potassium 5.5 H (3.5-4.5) mmol/L Chloride (101-111) mmol/L Carbon Dioxide (21-32) mmol/L Anion Gap (6-13) BUN (6-20) mg/dL Creatinine (0.6-1.3) mg/dL Estimated GFR (MDRD) (>89) Glucose (74-104) mg/dL POC Whole Bld Glucose (70 - 100) mg/dL Estimat Average Glucose (70-100) mg/dL Hemoglobin A1c % (4.27-6.07) % Calcium (8.5-10.3) mg/dL Phosphorus 6.6 H (2.5-5.0) mg/dL Magnesium 2.7 H (1.7-2.3) mg/dL Total Bilirubin (0.2-1.0) mg/dL AST (10-42) IU/L ALT (10-60) IU/L Alkaline Phosphatase (42-121) IU/L B-Natriuretic Peptide (5-100) pg/mL Total Protein (6.4-8.9) g/dL Albumin (3.2-5.5) g/dL Globulin (2.1-4.2) g/dL Albumin/Globulin Ratio (1.0-2.2) Prealbumin (17-34) mg/dL Triglycerides (48-352) mg/dL LDL Cholesterol Direct (75-193) mg/dL dLDL/HDL Ratio 11/17/23 Range/Units 19:03 WBC (4.8-10.8) x10^3/uL RBC (4.20-5.40) 10^6/uL Hgb (12.0-16.0) g/dL Hct (37.0-47.0) % MCV (81.0-99.0) fL MCH (27.0-31.0) pg MCHC (32.0-36.0) g/dL RDW (12.0-15.0) % Plt Count (130-450) 10^3/uL MPV (7.9-10.8) fL Neut # (Auto) (1.5-6.6) 10^3/uL Lymph # (Auto) (1.5-3.5) 10^3/uL Webster # (Auto) (0.0-1.0) 10^3/uL Eos # (Auto) (0.0-0.7) 10^3/uL Baso # (Auto) (0.0-0.1) 10^3/uL Absolute Nucleated RBC x10^3/uL Band Neuts % (Manual) Abnorm Lymph % (Manual) Nucleated RBC % /100WBC Neutrophils # (Manual) Lymphocytes # (Manual) Monocytes # (Manual) Eosinophils # (Manual) Basophils # (Manual) Differential Comment Platelet Estimate (NORMAL) Platelet Morphology (NORMAL) RBC Morph Micro Appear (NORMAL) Bld Gas Analysis Time 190 Sample Site RIGHT RADIAL ABG pH 7.29 L (7.35-7.45) ABG pCO2 40 (34-45) mmHg ABG pO2 51 L (80-100) mmHg ABG HCO3 18.7 L (22.0-26.0) mmol/L ABG Total CO2 19.9 L (21.0-29.0) MMOL/L ABG O2 Saturation 84 L* (94-98) % ABG Base Excess -7.5 L (-2.0-3.0) mmol/L Kody Test POSITIVE VBG pH (7.31-7.41) Ionized Calcium (1.15-1.33) mmol/L Respiration Rate b/min O2 Delivery Device O2 Liters/Min 45.00 LPM Vent Mode FiO2 100.00 Tidal Volume mL PEEP cmH2O Pressure Support Vent cmH2O Sodium (135-145) mmol/L Potassium (3.5-4.5) mmol/L Chloride (101-111) mmol/L Carbon Dioxide (21-32) mmol/L Anion Gap (6-13) BUN (6-20) mg/dL Creatinine (0.6-1.3) mg/dL Estimated GFR (MDRD) (>89) Glucose (74-104) mg/dL POC Whole Bld Glucose (70 - 100) mg/dL Estimat Average Glucose (70-100) mg/dL Hemoglobin A1c % (4.27-6.07) % Calcium (8.5-10.3) mg/dL Phosphorus (2.5-5.0) mg/dL Magnesium (1.7-2.3) mg/dL Total Bilirubin (0.2-1.0) mg/dL AST (10-42) IU/L ALT (10-60) IU/L Alkaline Phosphatase (42-121) IU/L B-Natriuretic Peptide (5-100) pg/mL Total Protein (6.4-8.9) g/dL Albumin (3.2-5.5) g/dL Globulin (2.1-4.2) g/dL Albumin/Globulin Ratio (1.0-2.2) Prealbumin (17-34) mg/dL Triglycerides (48-352) mg/dL LDL Cholesterol Direct (75-193) mg/dL dLDL/HDL Ratio Sepsis Event Note (H) - Evaluation Current Stage of Sepsis: Sepsis Possible source of Sepsis: positive: Pulmonary - Sepsis Criteria Sepsis Criteria: Recorded Heart Rate greater than 90 bpm, Respiratory: Increasing oxygen requirements, WBC count greater than 10% bands, WBC count greater than 12,000 or less than 4000, MAP less than 65 mmHg, Metabolic: lactate > 2 mmol/L Assessment/Plan - Problem List (1) Acute respiratory failure with hypoxia Impression: At presentation patient had severe respiratory distress, wheezing, found to have bilateral pneumonia and probable CHF, as the causes She was admitted to the ICU, needed high levels of supplemental O2, needed to be intubated electively last night and placed on the vent. IV sedatives started Plan: Continue supplemental O2 on vent, keeping O2 saturations greater than 90% Treat the underlying asthma exacerbation, pneumonia, and pulmonary edema (2) On mechanically assisted ventilation She was admitted to the ICU, needed high levels of supplemental O2. By her first night, last night, she worsened and needed to be intubated and placed on the vent. IV Propofol drip as sedative was started Plan: I will add iv Fentanyl, for sedation while on vent, since we learned that she takes Buprenorphine weekly, gabapentin and tramadol, from her reconciled med list Continue suppl O2 on vent, keeping O2 saturations greater than 90% Follow ABG I plan to give her lungs 2 - 3 days rest on the vent before trying to decrease sedatives and titrating the ventilator to off (3) Sepsis Conclusion/Plan: The patient met criteria for sepsis: Lactic acid >2, WBC < 4K, Bands > 10%, respiratory rate very elevated, MAP less than 65, and her pulm status is the cause. IV antibx started We had to decrease IV fluid rate because of the pulmonary edema. Today her LA decreased to 2.3, her WBC talia from 3.5 to 18.2 (all labs were reviewed). Plan: Remain in ICU for aggressive management Cont antibx Cannot give aggressive crytalloids due to pulm edema Qualifiers: Severe sepsis acute organ dysfunction type: acute respiratory failure Acute respiratory failure type: with hypoxia (4) Pneumonia Conclusion/Plan: Patient has bilateral pneumonia on chest x-ray This may be a CAP, or aspiration PNA, since she gets only clear liquid diet because of stomach surgery. Due to a penicillin allergy she did not get Ceftriaxone (plus Zithromax) in the ER. She was started on Levaquin. Mucinex had been started for expectoration, but now she is on the vent Plan: Spt culture ordered Continue with empiric iv Levaquin treatment Cont with empiric iv Flagyl to cover oral anaerobic bacteria (5) Asthma exacerbation Conclusion/Plan: The patient has known asthma, uses Montelukast and inhalers but no steroids, no nebulizers, no home O2 Plan: Cont IV Solu-Medrol TID Continue with DuoNebs scheduled and every 4 hours as needed Continue with Pulmicort twice daily Will try to give Montelukast per ng (6) New onset of congestive heart failure Conclusion/Plan: Chest x-ray read as having pulmonary edema. BNP very elevated at 1245 The computer read her EKG is having A-fib. I do not agree. My interpretation of EKG : She has P waves and she is in MAT which is frequently seen with pulmonary disease We checked troponins x2>> normal Plan: Will stop IV fluids despite having sepsis, since TPN started and since she has pulm edema on CXR Remain on telemetry Awaiting Echo to eval LVEF (but today is Sat and we have no Software Intern until -). (7) History of gastric surgery Conclusion/Plan: Details are not known but her only diet is clear liquids I reviewed [place] records today and found: Had gastroparesis, then had gastrectomy when she was 35. Also had malabsorption and refeeding syndrome so she now gets TPN supplements via a port in chest, due to chronic weight loss. Plan: Continue TPN, no diet per NG tube will be ordered (8) On total parenteral nutrition (TPN) Conclusion/Plan: As per Hx. She has a Gutierrez port. Plan: Will continue her usual TPN, but will not give lipids, since she is on Propofol drip which has a high lipid load (9) R BKA: S88.111A Conclusion/Plan: I reviewed [place] records today and found: She had right BKA in 01/16 secondary to necrotizing fasciitis (10) S/P spinal surgery Conclusion/Plan: Per records, in 11/16, she presented to our ER for LBP and found to have L4 and L5 vertebral body erosion with inflammatory changes consistent with discitis/osteomyelitis. She was transferred out. Per our ER provider she got a discectomy and a prolonged course of antibiotics. I suspect this is why she is now on Buprenorphine, gabapentin, tramadol, Lamictal and Strattera Plan: Continue with IV fentanyl drip for sedation which will also treat chronic pain
[2023-06-14] MEDS: MONTELUKAST 10 MG TABLET PO SCH (20:48)
[2023-06-14] MEDS: lamoTRIgine 100 MG TABLET PO SCH (20:48)
[2023-06-15] MEDS ORDERED: POTASSIUM CHLOR 20 MEQ/100 ML 20 MEQ/100 ML BAG IV ONE
[2023-06-15] MEDS: SODIUM CHLORIDE FLUSH 0.9% 10 ML SYRINGE IVP SCH ×3 (00:13→16:56)
[2023-06-15] MEDS: PROPOFOL 1000 MG/100 ML 1,000 MG/100 ML BOTTLE IV SCH ×4 (00:14→23:59)
[2023-06-15] MEDS: INSULIN REGULAR HUMAN 300 UNIT/3 ML VIAL SUBQ SCH ×4 (00:26→18:05)
[2023-06-15 05:26] LABS: BASOPHILS % (AUTO) 0.1 %; HCT - HEMATOCRIT 30.2 % (37.0-47.0); HGB - HEMOGLOBIN 9.9 g/dL (12.0-16.0); LYMPHOCYTES # (AUTO) 0.5 10^3/uL (1.5-3.5); LYMPHOCYTES % (AUTO) 3.8 %; MEAN CORPUSCULAR HEMOGLOBIN 27.4 pg (27.0-31.0); MEAN CORPUSCULAR HGB CONC 32.8 g/dL (32.0-36.0); MEAN CORPUSCULAR VOLUME 83.7 fL (81.0-99.0); MEAN PLATELET VOLUME 11.9 fL (7.9-10.8); MONOCYTES # (AUTO) 0.3 10^3/uL (0.0-1.0); MONOCYTES % (AUTO) 2.6 %; NEUTROPHILS # (AUTO) 10.8 10^3/uL (1.5-6.6); NEUTROPHILS % (AUTO) 92.6 %; NRBC ABSOLUTE COUNT (AUTO) 0.02 x10^3/uL; NUCLEATED RED BLOOD CELLS AUTO 0.2 /100WBC; PLT - PLATELET COUNT 119 10^3/uL (130-450); RED BLOOD COUNT 3.61 10^6/uL (4.20-5.40); RED CELL DISTRIBUTION WIDTH 15.3 % (12.0-15.0); WHITE BLOOD COUNT 11.7 x10^3/uL (4.8-10.8)
[2023-06-15 05:59] LABS: CALCIUM 7.9 mg/dL (8.5-10.3); CREATININE 1.2 mg/dL (0.6-1.3)
[2023-06-15] MEDS: IPRATROPIUM/ALBUTEROL 3 ML NEB INH SCH ×4 (06:00→17:56)
[2023-06-15] MEDS: BUDESONIDE 0.5 MG/2 ML NEB INH SCH ×2 (06:00→17:56)
[2023-06-15 06:22] LABS: ABG PH 7.43 (7.35-7.45)
[2023-06-15 06:23] LABS: ABG BASE EXCESS 3.4 mmol/L (-2.0-3.0); ABG HCO3 28.2 mmol/L (22.0-26.0); ABG OXYGEN SATURATION 97 % (94-98); ABG PCO2 44 mmHg (34-45); ABG PO2 91 mmHg (80-100); ABG TCO2 29.6 MMOL/L (21.0-29.0); ALLEN TEST POSITIVE
[2023-06-15 06:24] LABS: ABG MODE OF VENTILATION SIMV; ABG RESPIRATORY RATE 20 b/min
[2023-06-15] MEDS: methylPREDNISolone SUCCINATE 125 MG/2 ML VIAL IVP SCH ×3 (06:33→23:04)
[2023-06-15] MEDS: metroNIDAZOLE 500 MG/100 ML 500 MG/100 ML BAG IV SCH ×3 (06:34→23:04)
[2023-06-15 06:43] LABS: CALCIUM, IONIZED 1.02 mmol/L (1.15-1.33); VBG PH 7.495 (7.31-7.41)
[2023-06-15] MEDS ORDERED: CALCIUM GLUC 1,000MG/50ML-NACL 1,000 MG/50 ML BAG IV ONE (06:47)
[2023-06-15 06:48] LABS: MAGNESIUM 1.9 mg/dL (1.7-2.3); PHOSPHORUS 3.4 mg/dL (2.5-5.0)
[2023-06-15 06:58] LABS: PLATELET MORPHOLOGY NORMAL APPEARANCE (NORMAL)
[2023-06-15 06:59] LABS: DIFFERENTIAL COMMENT MANUAL=AUTO DIFF; PLATELET ESTIMATE, MANUAL NORMAL (130-450,000) (NORMAL)
[2023-06-15] MEDS: FUROSEMIDE 40 MG/4 ML VIAL IVP SCH ×2 (09:13→21:13)
[2023-06-15] MEDS: FAMOTIDINE 20 MG/2 ML VIAL IVP SCH ×2 (09:13→21:13)
[2023-06-15] MEDS: levoFLOXacin 750 MG/150 ML 750 MG/150 ML BAG IV SCH (09:13)
[2023-06-15] MEDS: ENOXAPARIN 40 MG/0.4 ML SYRINGE SUBQ SCH (09:13)
[2023-06-15] MEDS: GABAPENTIN 300 MG CAPSULE PO SCH ×2 (09:14→21:13)
[2023-06-15] MEDS: DULoxetine 60 MG CAPSULE PO SCH (09:26)
[2023-06-15 10:10] LABS: CALCIUM, IONIZED 1.1 mmol/L (1.15-1.33); VBG PH 7.451 (7.31-7.41)
[2023-06-15] MEDS: CHLORHEXIDINE GLUCONATE 15 ML UDC PO SCH ×2 (10:30→21:13)
--- NOTE | 2023-06-15 12:22 | PROVIDER PROGRESS NOTE ---
Subjective - Subjective Pt reports feeling: No change Subjective: Remains sedated, on the vent Objective - Vital Signs/Intake & Output Reviewed Vital Signs: Yes Vital Signs: Vital Signs Temp Pulse Pulse Resp BP Pulse Ox 06/15/23 11:47 87 16 06/15/23 11:00 37.2 C 82 23 121/78 98 06/15/23 10:00 37.0 C 79 23 122/80 98 06/15/23 09:36 81 06/15/23 09:00 37.0 C 79 21 99/66 96 Intake & Output: Intake & Output 06/12/23 06/13/23 06/14/23 06/15/23 23:59 23:59 23:59 23:59 Intake Total 2235.804 3382.152 588.546 Output Total 215 2180 1490 Balance 2020.804 1397.848 -901.454 - Objective General Appearance: positive: Other (sedated, on the vent) Eyes Bilateral: positive: No lid inflammation ENT: positive: No signs of dehydration Neck: positive: Nml inspection Respiratory: positive: No respiratory distress, Breath sounds nml Cardiovascular: positive: Regular rate & rhythm, No murmur Abdomen: positive: No distention (soft) Skin: positive: Warm, Dry Extremities: positive: No pedal edema Neurologic/Psychiatric: positive: Other (sedated, on the vent) - Lab Results Fish Bones: 06/15/23 04:33 06/15/23 04:33 Other Labs: Lab Results x24hrs 06/15/23 06/15/23 06/15/23 Range/Units 11:50 10:08 06:11 WBC (4.8-10.8) x10^3/uL RBC (4.20-5.40) 10^6/uL Hgb (12.0-16.0) g/dL Hct (37.0-47.0) % MCV (81.0-99.0) fL MCH (27.0-31.0) pg MCHC (32.0-36.0) g/dL RDW (12.0-15.0) % Plt Count (130-450) 10^3/uL MPV (7.9-10.8) fL Neut # (Auto) (1.5-6.6) 10^3/uL Lymph # (Auto) (1.5-3.5) 10^3/uL [place] # (Auto) (0.0-1.0) 10^3/uL Eos # (Auto) (0.0-0.7) 10^3/uL Baso # (Auto) (0.0-0.1) 10^3/uL Absolute Nucleated RBC x10^3/uL Band Neuts % (Manual) Abnorm Lymph % (Manual) Nucleated RBC % /100WBC Neutrophils # (Manual) Lymphocytes # (Manual) Monocytes # (Manual) Eosinophils # (Manual) Basophils # (Manual) Differential Comment Platelet Estimate (NORMAL) Platelet Morphology (NORMAL) Bld Gas Analysis Time 0617 Sample Site RIGHT RADIAL ABG pH 7.43 (7.35-7.45) ABG pCO2 44 (34-45) mmHg ABG pO2 91 (80-100) mmHg ABG HCO3 28.2 H (22.0-26.0) mmol/L ABG Total CO2 29.6 H (21.0-29.0) MMOL/L ABG O2 Saturation 97 (94-98) % ABG Base Excess 3.4 H (-2.0-3.0) mmol/L Kody Test POSITIVE VBG pH 7.451 H (7.31-7.41) Ionized Calcium 1.10 L (1.15-1.33) mmol/L Respiration Rate 20 b/min O2 Delivery Device VENTILATOR Vent Mode SIMV FiO2 60.00 Tidal Volume 420 mL PEEP 5 cmH2O Pressure Support Vent 10 cmH2O Sodium (135-145) mmol/L Potassium (3.5-4.5) mmol/L Chloride (101-111) mmol/L Carbon Dioxide (21-32) mmol/L Anion Gap (6-13) BUN (6-20) mg/dL Creatinine (0.6-1.3) mg/dL Estimated GFR (MDRD) (>89) Glucose (74-104) mg/dL POC Whole Bld Glucose 224 H (70 - 100) mg/dL Calcium (8.5-10.3) mg/dL Phosphorus (2.5-5.0) mg/dL Magnesium (1.7-2.3) mg/dL B-Natriuretic Peptide (5-100) pg/mL 11/19/23 11/19/23 11/19/23 Range/Units 06:04 04:33 04:33 WBC (4.8-10.8) x10^3/uL RBC (4.20-5.40) 10^6/uL Hgb (12.0-16.0) g/dL Hct (37.0-47.0) % MCV (81.0-99.0) fL MCH (27.0-31.0) pg MCHC (32.0-36.0) g/dL RDW (12.0-15.0) % Plt Count (130-450) 10^3/uL MPV (7.9-10.8) fL Neut # (Auto) (1.5-6.6) 10^3/uL Lymph # (Auto) (1.5-3.5) 10^3/uL [place] # (Auto) (0.0-1.0) 10^3/uL Eos # (Auto) (0.0-0.7) 10^3/uL Baso # (Auto) (0.0-0.1) 10^3/uL Absolute Nucleated RBC x10^3/uL Band Neuts % (Manual) Abnorm Lymph % (Manual) Nucleated RBC % /100WBC Neutrophils # (Manual) Lymphocytes # (Manual) Monocytes # (Manual) Eosinophils # (Manual) Basophils # (Manual) Differential Comment Platelet Estimate (NORMAL) Platelet Morphology (NORMAL) Bld Gas Analysis Time Sample Site ABG pH (7.35-7.45) ABG pCO2 (34-45) mmHg ABG pO2 (80-100) mmHg ABG HCO3 (22.0-26.0) mmol/L ABG Total CO2 (21.0-29.0) MMOL/L ABG O2 Saturation (94-98) % ABG Base Excess (-2.0-3.0) mmol/L Kody Test VBG pH 7.495 H (7.31-7.41) Ionized Calcium 1.02 L (1.15-1.33) mmol/L Respiration Rate b/min O2 Delivery Device Vent Mode FiO2 Tidal Volume mL PEEP cmH2O Pressure Support Vent cmH2O Sodium (135-145) mmol/L Potassium (3.5-4.5) mmol/L Chloride (101-111) mmol/L Carbon Dioxide (21-32) mmol/L Anion Gap (6-13) BUN (6-20) mg/dL Creatinine (0.6-1.3) mg/dL Estimated GFR (MDRD) (>89) Glucose (74-104) mg/dL POC Whole Bld Glucose 249 H (70 - 100) mg/dL Calcium (8.5-10.3) mg/dL Phosphorus 3.4 (2.5-5.0) mg/dL Magnesium 1.9 (1.7-2.3) mg/dL B-Natriuretic Peptide (5-100) pg/mL 06/15/23 06/15/23 06/15/23 Range/Units 04:33 04:33 04:33 WBC 11.7 H (4.8-10.8) x10^3/uL RBC 3.61 L (4.20-5.40) 10^6/uL Hgb 9.9 L (12.0-16.0) g/dL Hct 30.2 L (37.0-47.0) % MCV 83.7 (81.0-99.0) fL MCH 27.4 (27.0-31.0) pg MCHC 32.8 (32.0-36.0) g/dL RDW 15.3 H (12.0-15.0) % Plt Count 119 L (130-450) 10^3/uL MPV 11.9 H (7.9-10.8) fL Neut # (Auto) 10.8 H (1.5-6.6) 10^3/uL Lymph # (Auto) 0.5 L (1.5-3.5) 10^3/uL [place] # (Auto) 0.3 (0.0-1.0) 10^3/uL Eos # (Auto) 0.0 (0.0-0.7) 10^3/uL Baso # (Auto) 0.0 (0.0-0.1) 10^3/uL Absolute Nucleated RBC 0.02 x10^3/uL Band Neuts % (Manual) Not Reportable Abnorm Lymph % (Manual) Not Reportable Nucleated RBC % 0.2 /100WBC Neutrophils # (Manual) Not Reportable Lymphocytes # (Manual) Not Reportable Monocytes # (Manual) Not Reportable Eosinophils # (Manual) Not Reportable Basophils # (Manual) Not Reportable Differential Comment MANUAL=AUTO DIFF Platelet Estimate NORMAL (130-450,000) (NORMAL) Platelet Morphology NORMAL APPEARANCE (NORMAL) Bld Gas Analysis Time Sample Site ABG pH (7.35-7.45) ABG pCO2 (34-45) mmHg ABG pO2 (80-100) mmHg ABG HCO3 (22.0-26.0) mmol/L ABG Total CO2 (21.0-29.0) MMOL/L ABG O2 Saturation (94-98) % ABG Base Excess (-2.0-3.0) mmol/L Kody Test VBG pH (7.31-7.41) Ionized Calcium (1.15-1.33) mmol/L Respiration Rate b/min O2 Delivery Device Vent Mode FiO2 Tidal Volume mL PEEP cmH2O Pressure Support Vent cmH2O Sodium 137 (135-145) mmol/L Potassium 4.0 (3.5-4.5) mmol/L Chloride 102 (101-111) mmol/L Carbon Dioxide 28 (21-32) mmol/L Anion Gap 7.0 (6-13) BUN 55 H (6-20) mg/dL Creatinine 1.2 (0.6-1.3) mg/dL Estimated GFR (MDRD) 48 L (>89) Glucose 265 H (74-104) mg/dL POC Whole Bld Glucose (70 - 100) mg/dL Calcium 7.9 L (8.5-10.3) mg/dL Phosphorus (2.5-5.0) mg/dL Magnesium (1.7-2.3) mg/dL B-Natriuretic Peptide 808 H (5-100) pg/mL 06/15/23 06/14/23 06/14/23 Range/Units 00:07 23:28 18:06 WBC (4.8-10.8) x10^3/uL RBC (4.20-5.40) 10^6/uL Hgb (12.0-16.0) g/dL Hct (37.0-47.0) % MCV (81.0-99.0) fL MCH (27.0-31.0) pg MCHC (32.0-36.0) g/dL RDW (12.0-15.0) % Plt Count (130-450) 10^3/uL MPV (7.9-10.8) fL Neut # (Auto) (1.5-6.6) 10^3/uL Lymph # (Auto) (1.5-3.5) 10^3/uL [place] # (Auto) (0.0-1.0) 10^3/uL Eos # (Auto) (0.0-0.7) 10^3/uL Baso # (Auto) (0.0-0.1) 10^3/uL Absolute Nucleated RBC x10^3/uL Band Neuts % (Manual) Abnorm Lymph % (Manual) Nucleated RBC % /100WBC Neutrophils # (Manual) Lymphocytes # (Manual) Monocytes # (Manual) Eosinophils # (Manual) Basophils # (Manual) Differential Comment Platelet Estimate (NORMAL) Platelet Morphology (NORMAL) Bld Gas Analysis Time Sample Site ABG pH (7.35-7.45) ABG pCO2 (34-45) mmHg ABG pO2 (80-100) mmHg ABG HCO3 (22.0-26.0) mmol/L ABG Total CO2 (21.0-29.0) MMOL/L ABG O2 Saturation (94-98) % ABG Base Excess (-2.0-3.0) mmol/L Kody Test VBG pH (7.31-7.41) Ionized Calcium (1.15-1.33) mmol/L Respiration Rate b/min O2 Delivery Device Vent Mode FiO2 Tidal Volume mL PEEP cmH2O Pressure Support Vent cmH2O Sodium (135-145) mmol/L Potassium 3.8 (3.5-4.5) mmol/L Chloride (101-111) mmol/L Carbon Dioxide (21-32) mmol/L Anion Gap (6-13) BUN (6-20) mg/dL Creatinine (0.6-1.3) mg/dL Estimated GFR (MDRD) (>89) Glucose (74-104) mg/dL POC Whole Bld Glucose 263 H 227 H (70 - 100) mg/dL Calcium (8.5-10.3) mg/dL Phosphorus (2.5-5.0) mg/dL Magnesium (1.7-2.3) mg/dL B-Natriuretic Peptide (5-100) pg/mL 06/14/23 06/14/23 06/14/23 Range/Units 17:00 14:36 12:48 WBC (4.8-10.8) x10^3/uL RBC (4.20-5.40) 10^6/uL Hgb (12.0-16.0) g/dL Hct (37.0-47.0) % MCV (81.0-99.0) fL MCH (27.0-31.0) pg MCHC (32.0-36.0) g/dL RDW (12.0-15.0) % Plt Count (130-450) 10^3/uL MPV (7.9-10.8) fL Neut # (Auto) (1.5-6.6) 10^3/uL Lymph # (Auto) (1.5-3.5) 10^3/uL [place] # (Auto) (0.0-1.0) 10^3/uL Eos # (Auto) (0.0-0.7) 10^3/uL Baso # (Auto) (0.0-0.1) 10^3/uL Absolute Nucleated RBC x10^3/uL Band Neuts % (Manual) Abnorm Lymph % (Manual) Nucleated RBC % /100WBC Neutrophils # (Manual) Lymphocytes # (Manual) Monocytes # (Manual) Eosinophils # (Manual) Basophils # (Manual) Differential Comment Platelet Estimate (NORMAL) Platelet Morphology (NORMAL) Bld Gas Analysis Time 1430 Sample Site RIGHT RADIAL ABG pH 7.46 H (7.35-7.45) ABG pCO2 41 (34-45) mmHg ABG pO2 80 (80-100) mmHg ABG HCO3 28.4 H (22.0-26.0) mmol/L ABG Total CO2 29.6 H (21.0-29.0) MMOL/L ABG O2 Saturation 96 (94-98) % ABG Base Excess 4.2 H (-2.0-3.0) mmol/L Kody Test POSITIVE VBG pH (7.31-7.41) Ionized Calcium (1.15-1.33) mmol/L Respiration Rate 20 b/min O2 Delivery Device VENTILATOR Vent Mode SIMV FiO2 60.00 Tidal Volume 420 mL PEEP 5 cmH2O Pressure Support Vent 10 cmH2O Sodium 137 (135-145) mmol/L Potassium 3.7 3.2 L (3.5-4.5) mmol/L Chloride 100 L (101-111) mmol/L Carbon Dioxide 25 (21-32) mmol/L Anion Gap 12.0 (6-13) BUN 40 H (6-20) mg/dL Creatinine 1.2 (0.6-1.3) mg/dL Estimated GFR (MDRD) 48 L (>89) Glucose 299 H (74-104) mg/dL POC Whole Bld Glucose (70 - 100) mg/dL Calcium 8.3 L (8.5-10.3) mg/dL Phosphorus (2.5-5.0) mg/dL Magnesium (1.7-2.3) mg/dL B-Natriuretic Peptide (5-100) pg/mL Sepsis Event Note (H) - Evaluation Current Stage of Sepsis: Sepsis Possible source of Sepsis: positive: Pulmonary - Sepsis Criteria Sepsis Criteria: Recorded Heart Rate greater than 90 bpm, Respiratory: Increasing oxygen requirements, WBC count greater than 10% bands, WBC count greater than 12,000 or less than 4000, MAP less than 65 mmHg, Metabolic: lactate > 2 mmol/L Assessment/Plan - Problem List (1) Acute respiratory failure with hypoxia Impression: At presentation patient had severe respiratory distress, wheezing, found to have bilateral pneumonia and probable CHF, as the causes She was admitted to the ICU, needed high levels of supplemental O2, needed to be intubated electively the night of adm, and was placed on the vent. IV sedatives started Plan: Continue supplemental O2 on vent, keeping O2 saturations greater than 90% Treat the underlying asthma exacerbation, pneumonia, and pulmonary edema (2) On mechanically assisted ventilation She was admitted to the ICU, needed high levels of supplemental O2. By her first night, last night, she worsened and needed to be intubated and placed on the vent. IV Propofol drip as sedative was started Plan: Cont iv Propofol and iv Fentanyl, for sedation while on vent, since we learned that she takes Buprenorphine weekly, gabapentin and tramadol, from her [facility] nciled med list Continue suppl O2 on vent, keeping O2 saturations greater than 90% Follow ABG I plan to give her lungs 2 - 3 days rest on the vent before trying to decrease sedatives and titrating the ventilator to off (3) Sepsis Conclusion/Plan: The patient met criteria for sepsis: Lactic acid >2, WBC < 4K, Bands > 10%, respiratory rate very elevated, MAP less than 65, and her pulm status is the cause. IV antibx started. We had to decrease IV fluid rate because of the pulmonary edema. Her LA decreased from 3.3 to 2.3, her WBC talia from 3.5 to 18.2>> 17 today(all labs were reviewed). Plan: Remain in ICU for aggressive management Cont antibx Cannot give aggressive crytalloids due to pulm edema Qualifiers: Severe sepsis acute organ dysfunction type: acute respiratory failure Acute respiratory failure type: with hypoxia (4) Pneumonia Conclusion/Plan: Patient has bilateral pneumonia on chest x-ray This may be a CAP, or aspiration PNA, since she gets only clear liquid diet because of stomach surgery. Due to a penicillin allergy she did not get Ceftriaxone (plus Zithromax) in the ER. She was started on Levaquin. Mucinex had been started for expectoration, but now she is on the vent Plan: Spt culture ordered, await result to tailor antibx Continue with empiric iv Levaquin treatment and empiric iv Flagyl to cover oral anaerobic bacteria (5) Asthma exacerbation Conclusion/Plan: The patient has known asthma, uses Montelukast and inhalers but no steroids, no nebulizers, no home O2 Plan: Cont IV Solu-Medrol TID Continue with DuoNebs scheduled and every 4 hours as needed Continue with Pulmicort twice daily Will try to give Montelukast per ng (6) New onset of congestive heart failure Conclusion/Plan: Chest x-ray read as having pulmonary edema. BNP very elevated at 1245 The computer read her EKG is having A-fib. I do not agree. My interpretation of EKG : She has P waves and she is in MAT which is frequently seen with pulmonary disease We checked troponins x2>> normal Plan: Will stop IV fluids despite having sepsis, since TPN started and since she has pulm edema on CXR Remain on telemetry Awaiting Echo to eval LVEF (but today is Sun and we have no Nuclear Cardiology Technologist until -). (7) History of gastric surgery Conclusion/Plan: Exact details were not known but her only diet is clear liquids I reviewed old [facility] records and found: She had gastroparesis, then had gastrectomy when she was 35. Also had malabsorption and refeeding syndrome so she now gets TPN supplements via a port in chest, due to chronic weight loss. Plan: Continue TPN, no diet per NG tube will be ordered (8) On total parenteral nutrition (TPN) Conclusion/Plan: As per Hx. She has a Gutierrez port. 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 She was transferred out. She got a discectomy and a prolonged course of antibiotics. I suspect chronic pain is why she is now on Buprenorphine, gabapentin, tramadol, Lamictal and Strattera Plan: Continue with IV fentanyl drip for sedation which will also treat chronic pain
[2023-06-15] MEDS: ACETAMINOPHEN 1,000 MG/100 ML 1,000 MG/100 ML BAG IV PRN (15:54)
[2023-06-15] MEDS: fentaNYL 2,500 MCG/250 ML 2,500 MCG/250 ML BAG IV SCH (18:14)
[2023-06-15] MEDS ORDERED: PPN (CLINIMIX E 4.25/5) 2,000 ML with MULTIVITAMIN 10 ML, TRACE ELEMENTS 1 ML IV SCH ×3 (19:00)
[2023-06-15] MEDS: MONTELUKAST 10 MG TABLET PO SCH (21:13)
[2023-06-15] MEDS: lamoTRIgine 100 MG TABLET PO SCH (21:13)
[2023-06-16] MEDS: INSULIN REGULAR HUMAN 300 UNIT/3 ML VIAL SUBQ SCH ×4 (00:07→18:04)
[2023-06-16] MEDS: SODIUM CHLORIDE FLUSH 0.9% 10 ML SYRINGE IVP SCH ×3 (00:08→17:06)
[2023-06-16] MEDS: PROPOFOL 1000 MG/100 ML 1,000 MG/100 ML BOTTLE IV SCH (04:36)
[2023-06-16] MEDS: methylPREDNISolone SUCCINATE 125 MG/2 ML VIAL IVP SCH ×3 (06:11→21:03)
[2023-06-16 06:37] LABS: ABG PH 7.43 (7.35-7.45)
[2023-06-16 06:39] LABS: ABG BASE EXCESS 5.1 mmol/L (-2.0-3.0); ABG HCO3 30.3 mmol/L (22.0-26.0); ABG MODE OF VENTILATION SIMV; ABG OXYGEN SATURATION 97 % (94-98); ABG PO2 100 mmHg (80-100); ABG RESPIRATORY RATE 20 b/min; ABG TCO2 31.7 MMOL/L (21.0-29.0); ALLEN TEST POSITIVE
[2023-06-16 06:47] LABS: ABG PCO2 47 mmHg (34-45)
[2023-06-16] MEDS: metroNIDAZOLE 500 MG/100 ML 500 MG/100 ML BAG IV SCH ×3 (06:53→22:51)
[2023-06-16] MEDS: BUDESONIDE 0.5 MG/2 ML NEB INH SCH ×2 (07:29→17:37)
[2023-06-16] MEDS: IPRATROPIUM/ALBUTEROL 3 ML NEB INH SCH ×4 (07:30→17:37)
[2023-06-16 07:40] LABS: CALCIUM, IONIZED 0.98 mmol/L (1.15-1.33); VBG PH 7.478 (7.31-7.41)
[2023-06-16 07:51] LABS: BASOPHILS % (AUTO) 1.2 %; HCT - HEMATOCRIT 31.3 % (37.0-47.0); HGB - HEMOGLOBIN 10.3 g/dL (12.0-16.0); LYMPHOCYTES % (AUTO) 8.7 %; MEAN CORPUSCULAR HEMOGLOBIN 27.2 pg (27.0-31.0); MEAN CORPUSCULAR HGB CONC 32.9 g/dL (32.0-36.0); MEAN CORPUSCULAR VOLUME 82.6 fL (81.0-99.0); MEAN PLATELET VOLUME 11.1 fL (7.9-10.8); MONOCYTES % (AUTO) 5.7 %; NEUTROPHILS % (AUTO) 78.8 %; PLT - PLATELET COUNT 111 10^3/uL (130-450); RED BLOOD COUNT 3.79 10^6/uL (4.20-5.40); RED CELL DISTRIBUTION WIDTH 15.6 % (12.0-15.0); WHITE BLOOD COUNT 6.4 x10^3/uL (4.8-10.8)
[2023-06-16 07:56] LABS: ALBUMIN 2.7 g/dL (3.2-5.5); ALBUMIN/GLOBULIN RATIO 1.2 (1.0-2.2); ALKALINE PHOSPHATASE 166 IU/L (42-121); ALT ALANINE AMINOTRANSFERASE 328 IU/L (10-60); AST ASPARTATE AMINOTRANSFERASE 298 IU/L (10-42); BILIRUBIN,TOTAL 0.4 mg/dL (0.2-1.0); BUN - BLOOD UREA NITROGEN 72 mg/dL (6-20); CALCIUM 7.6 mg/dL (8.5-10.3); CARBON DIOXIDE - CO2 30 mmol/L (21-32); CHLORIDE 100 mmol/L (101-111); CREATININE 1.2 mg/dL (0.6-1.3); GFR - MDRD 48 (>89); GLUCOSE 175 mg/dL (74-104); MAGNESIUM 2.2 mg/dL (1.7-2.3); PHOSPHORUS 4.9 mg/dL (2.5-5.0); POTASSIUM 4.3 mmol/L (3.5-4.5); PREALBUMIN 9 mg/dL (17-34); SODIUM 140 mmol/L (135-145); TRIGLYCERIDES 563 mg/dL (48-352)
[2023-06-16 08:16] LABS: ABNORMAL LYMPHS % (MANUAL) 0 %
[2023-06-16 08:27] LABS: BAND NEUTROPHILS % (MANUAL) 1 %; LYMPHOCYTES # (MANUAL) 0.8 10^3/uL (1.5-3.5); LYMPHOCYTES % (MANUAL) 13 %; METAMYELOCYTES % (MANUAL) 2 %; MONOCYTES # (MANUAL) 0.3 10^3/uL (0.0-1.0); NEUTROPHILS # (MANUAL) 5.1 10^3/uL (1.5-6.6)
[2023-06-16 08:29] LABS: DIFFERENTIAL COMMENT MANUAL DIFFERENTIAL; LDL CHOLESTEROL,DIRECT 51 mg/dL (75-193); PLATELET ESTIMATE, MANUAL DECREASED (<130,000) (NORMAL); PLATELET MORPHOLOGY NORMAL APPEARANCE (NORMAL)
[2023-06-16] MEDS: SODIUM CHLORIDE FLUSH 0.9% 10 ML SYRINGE IVP PRN (08:40)
[2023-06-16] MEDS: FUROSEMIDE 40 MG/4 ML VIAL IVP SCH ×2 (08:40→20:07)
[2023-06-16] MEDS: FAMOTIDINE 20 MG/2 ML VIAL IVP SCH ×2 (08:40→20:07)
[2023-06-16] MEDS: ENOXAPARIN 40 MG/0.4 ML SYRINGE SUBQ SCH (08:40)
[2023-06-16] MEDS: GABAPENTIN 300 MG CAPSULE PO SCH ×2 (08:41→20:07)
[2023-06-16] MEDS: DULoxetine 60 MG CAPSULE PO SCH (08:41)
[2023-06-16] MEDS: CHLORHEXIDINE GLUCONATE 15 ML UDC PO SCH (08:41)
[2023-06-16] MEDS: levoFLOXacin 750 MG/150 ML 750 MG/150 ML BAG IV SCH (08:48)
[2023-06-16] MEDS ORDERED: CALCIUM GLUCONATE IN NS 0.9% 2,000 MG/100 ML BAG IV ONE ×2 (10:00→13:42)
[2023-06-16 10:17] LABS: ABG BASE EXCESS 6.1 mmol/L (-2.0-3.0); ABG HCO3 30.5 mmol/L (22.0-26.0); ABG OXYGEN SATURATION 93 % (94-98); ABG PCO2 43 mmHg (34-45); ABG PH 7.47 (7.35-7.45); ABG PO2 65 mmHg (80-100); ABG TCO2 31.8 MMOL/L (21.0-29.0); ALLEN TEST POSITIVE
[2023-06-16] MEDS ORDERED: MIDAZOLAM DRIP 50 MG/50 ML 50 MG/50 ML BAG IV SCH (12:00)
[2023-06-16 13:26] LABS: CALCIUM, IONIZED 0.96 mmol/L (1.15-1.33); VBG PH 7.599 (7.31-7.41)
[2023-06-16] MEDS: fentaNYL 2,500 MCG/250 ML 2,500 MCG/250 ML BAG IV SCH (13:35)
[2023-06-16] MEDS ORDERED: CALCIUM CHLORIDE 2,000 MG in SODIUM CHLORIDE 0.9% 100ML 100 ML IV ONE (13:42)
--- NOTE | 2023-06-16 15:04 | XRAY Report ---
PROCEDURE: Chest 1 View X-Ray INDICATIONS: F/U pneumonia and pulm edema TECHNIQUE: One view of the chest was acquired. COMPARISON: None. FINDINGS: Surgical changes and devices: Right chest wall central venous catheter tip projects over the cavoatr ial junction. Endotracheal tube tip projects over the midthoracic trachea. Feeding tube passes below the diaphragm. Lungs and pleura: Left midlung consolidation. Decreased right-sided airspace opacities. Mediastinum: Mediastinal contours appear normal. Heart size is normal. Bones and chest wall: No suspicious bony lesions. Overlying soft tissues appear unremarkable. IMPRESSION: Overall, decreased perihilar opacities, with residual consolidation in the left midlung zone. Reviewed by: Mario Long on 06/16/2023 3:02 PM PST Approved by: Mario Long on 06/16/2023 3:02 PM PST Station ID: [id number]
[2023-06-16] MEDS: ACETAMINOPHEN 1,000 MG/100 ML 1,000 MG/100 ML BAG IV PRN (16:35)
--- NOTE | 2023-06-16 17:34 | PROVIDER PROGRESS NOTE ---
Subjective - Subjective Pt reports feeling: Improved (Able to tolerate CPAP) Objective - Vital Signs/Intake & Output Vital Signs: Vital Signs Temp Pulse Pulse Resp BP Pulse Ox 06/16/23 17:00 37.9 C 81 22 134/77 H 93 06/16/23 16:00 37.8 C 82 22 128/78 92 06/16/23 15:38 87 06/16/23 15:00 85 18 124/78 93 06/16/23 14:46 83 24 06/16/23 14:16 95 06/16/23 14:00 85 24 127/78 92 06/16/23 13:26 86 Intake & Output: Intake & Output 06/13/23 06/14/23 06/15/23 06/16/23 23:59 23:59 23:59 23:59 Intake Total 2235.804 3382.152 2190.030 0581.615 Output Total 215 4780 3400 3050 Balance 2020.804 -1397.848 -2169.378 -945.385 - Objective General Appearance: positive: Other (Sedated on the vent) Eyes Bilateral: positive: No lid inflammation ENT: positive: No signs of dehydration Respiratory: positive: No respiratory distress, Breath sounds nml Cardiovascular: positive: Regular rate & rhythm, No murmur Rectal: positive: Other (No distension) Skin: positive: Warm, Dry Extremities: positive: No pedal edema Neurologic/Psychiatric: positive: Other (sedated on the vent) - Lab Results Fish Bones: 06/16/23 07:06 06/16/23 07:06 Other Labs: Lab Results x24hrs 06/16/23 06/16/23 06/16/23 Range/Units 13:16 11:30 10:00 WBC (4.8-10.8) x10^3/uL RBC (4.20-5.40) 10^6/uL Hgb (12.0-16.0) g/dL Hct (37.0-47.0) % MCV (81.0-99.0) fL MCH (27.0-31.0) pg MCHC (32.0-36.0) g/dL RDW (12.0-15.0) % Plt Count (130-450) 10^3/uL MPV (7.9-10.8) fL Neut # (Auto) Lymph # (Auto) [place] # (Auto) Eos # (Auto) Baso # (Auto) Absolute Nucleated RBC Total Counted Band Neuts % (Manual) (0 - 10) % Abnorm Lymph % (Manual) % Metamyelocytes % ( - 0) % Nucleated RBC % Neutrophils # (Manual) (1.5-6.6) 10^3/uL Lymphocytes # (Manual) (1.5-3.5) 10^3/uL Monocytes # (Manual) (0.0-1.0) 10^3/uL Eosinophils # (Manual) (0-0.7) 10^3/uL Basophils # (Manual) (0-0.1) 10^3/uL Differential Comment Platelet Estimate (NORMAL) Platelet Morphology (NORMAL) RBC Morph Micro Appear (NORMAL) Bld Gas Analysis Time 1011 Sample Site RIGHT RADIAL ABG pH 7.47 H (7.35-7.45) ABG pCO2 43 (34-45) mmHg ABG pO2 65 L (80-100) mmHg ABG HCO3 30.5 H (22.0-26.0) mmol/L ABG Total CO2 31.8 H (21.0-29.0) MMOL/L ABG O2 Saturation 93 L (94-98) % ABG Base Excess 6.1 H (-2.0-3.0) mmol/L Kody Test POSITIVE VBG pH 7.599 H (7.31-7.41) Ionized Calcium 0.96 L (1.15-1.33) mmol/L Respiration Rate b/min O2 Delivery Device VENTILATOR Vent Mode FiO2 40.00 Tidal Volume mL PEEP 5 cmH2O Pressure Support Vent 10 cmH2O Sodium (135-145) mmol/L Potassium (3.5-4.5) mmol/L Chloride (101-111) mmol/L Carbon Dioxide (21-32) mmol/L Anion Gap (6-13) BUN (6-20) mg/dL Creatinine (0.6-1.3) mg/dL Estimated GFR (MDRD) (>89) Glucose (74-104) mg/dL POC Whole Bld Glucose 165 H (70 - 100) mg/dL Calcium (8.5-10.3) mg/dL Phosphorus (2.5-5.0) mg/dL Magnesium (1.7-2.3) mg/dL Total Bilirubin (0.2-1.0) mg/dL AST (10-42) IU/L ALT (10-60) IU/L Alkaline Phosphatase (42-121) IU/L Total Protein (6.4-8.9) g/dL Albumin (3.2-5.5) g/dL Globulin (2.1-4.2) g/dL Albumin/Globulin Ratio (1.0-2.2) Prealbumin (17-34) mg/dL Triglycerides (48-352) mg/dL LDL Cholesterol Direct (75-193) mg/dL dLDL/HDL Ratio 06/16/23 06/16/23 06/16/23 Range/Units 07:59 07:06 07:06 WBC (4.8-10.8) x10^3/uL RBC (4.20-5.40) 10^6/uL Hgb (12.0-16.0) g/dL Hct (37.0-47.0) % MCV (81.0-99.0) fL MCH (27.0-31.0) pg MCHC (32.0-36.0) g/dL RDW (12.0-15.0) % Plt Count (130-450) 10^3/uL MPV (7.9-10.8) fL Neut # (Auto) Lymph # (Auto) [place] # (Auto) Eos # (Auto) Baso # (Auto) Absolute Nucleated RBC Total Counted Band Neuts % (Manual) (0 - 10) % Abnorm Lymph % (Manual) % Metamyelocytes % ( - 0) % Nucleated RBC % Neutrophils # (Manual) (1.5-6.6) 10^3/uL Lymphocytes # (Manual) (1.5-3.5) 10^3/uL Monocytes # (Manual) (0.0-1.0) 10^3/uL Eosinophils # (Manual) (0-0.7) 10^3/uL Basophils # (Manual) (0-0.1) 10^3/uL Differential Comment Platelet Estimate (NORMAL) Platelet Morphology (NORMAL) RBC Morph Micro Appear (NORMAL) Bld Gas Analysis Time Sample Site ABG pH (7.35-7.45) ABG pCO2 (34-45) mmHg ABG pO2 (80-100) mmHg ABG HCO3 (22.0-26.0) mmol/L ABG Total CO2 (21.0-29.0) MMOL/L ABG O2 Saturation (94-98) % ABG Base Excess (-2.0-3.0) mmol/L Kody Test VBG pH 7.478 H (7.31-7.41) Ionized Calcium 0.98 L (1.15-1.33) mmol/L Respiration Rate b/min O2 Delivery Device Vent Mode FiO2 Tidal Volume mL PEEP cmH2O Pressure Support Vent cmH2O Sodium 140 (135-145) mmol/L Potassium 4.3 (3.5-4.5) mmol/L Chloride 100 L (101-111) mmol/L Carbon Dioxide 30 (21-32) mmol/L Anion Gap 10.0 (6-13) BUN 72 H (6-20) mg/dL Creatinine 1.2 (0.6-1.3) mg/dL Estimated GFR (MDRD) 48 L (>89) Glucose 175 H (74-104) mg/dL POC Whole Bld Glucose 156 H (70 - 100) mg/dL Calcium 7.6 L (8.5-10.3) mg/dL Phosphorus 4.9 (2.5-5.0) mg/dL Magnesium 2.2 (1.7-2.3) mg/dL Total Bilirubin 0.4 (0.2-1.0) mg/dL AST 298 H (10-42) IU/L ALT 328 H (10-60) IU/L Alkaline Phosphatase 166 H (42-121) IU/L Total Protein 5.0 L (6.4-8.9) g/dL Albumin 2.7 L (3.2-5.5) g/dL Globulin 2.3 (2.1-4.2) g/dL Albumin/Globulin Ratio 1.2 (1.0-2.2) Prealbumin 9 L (17-34) mg/dL Triglycerides 563 H (48-352) mg/dL LDL Cholesterol Direct 51 L (75-193) mg/dL dLDL/HDL Ratio Not Reportable 06/16/23 06/16/23 06/16/23 Range/Units 07:06 06:15 06:13 WBC 6.4 (4.8-10.8) x10^3/uL RBC 3.79 L (4.20-5.40) 10^6/uL Hgb 10.3 L (12.0-16.0) g/dL Hct 31.3 L (37.0-47.0) % MCV 82.6 (81.0-99.0) fL MCH 27.2 (27.0-31.0) pg MCHC 32.9 (32.0-36.0) g/dL RDW 15.6 H (12.0-15.0) % Plt Count 111 L (130-450) 10^3/uL MPV 11.1 H (7.9-10.8) fL Neut # (Auto) Not Reportable Lymph # (Auto) Not Reportable [place] # (Auto) Not Reportable Eos # (Auto) Not Reportable Baso # (Auto) Not Reportable Absolute Nucleated RBC Not Reportable Total Counted 100 Band Neuts % (Manual) 1 (0 - 10) % Abnorm Lymph % (Manual) 0 % Metamyelocytes % 2 H ( - 0) % Nucleated RBC % Not Reportable Neutrophils # (Manual) 5.1 (1.5-6.6) 10^3/uL Lymphocytes # (Manual) 0.8 L (1.5-3.5) 10^3/uL Monocytes # (Manual) 0.3 (0.0-1.0) 10^3/uL Eosinophils # (Manual) 0.0 (0-0.7) 10^3/uL Basophils # (Manual) 0.0 (0-0.1) 10^3/uL Differential Comment MANUAL DIFFERENTIAL Platelet Estimate DECREASED (<130,000) (NORMAL) Platelet Morphology NORMAL APPEARANCE (NORMAL) RBC Morph Micro Appear 1+ TEARDROP CELLS (NORMAL) Bld Gas Analysis Time 0626 Sample Site RIGHT RADIAL ABG pH 7.43 (7.35-7.45) ABG pCO2 47 H (34-45) mmHg ABG pO2 100 (80-100) mmHg ABG HCO3 30.3 H (22.0-26.0) mmol/L ABG Total CO2 31.7 H (21.0-29.0) MMOL/L ABG O2 Saturation 97 (94-98) % ABG Base Excess 5.1 H (-2.0-3.0) mmol/L Kody Test POSITIVE VBG pH (7.31-7.41) Ionized Calcium (1.15-1.33) mmol/L Respiration Rate 20 b/min O2 Delivery Device VENTILATOR Vent Mode SIMV FiO2 60.00 Tidal Volume 420 mL PEEP 5 cmH2O Pressure Support Vent 10 cmH2O Sodium (135-145) mmol/L Potassium (3.5-4.5) mmol/L Chloride (101-111) mmol/L Carbon Dioxide (21-32) mmol/L Anion Gap (6-13) BUN (6-20) mg/dL Creatinine (0.6-1.3) mg/dL Estimated GFR (MDRD) (>89) Glucose (74-104) mg/dL POC Whole Bld Glucose 169 H (70 - 100) mg/dL Calcium (8.5-10.3) mg/dL Phosphorus (2.5-5.0) mg/dL Magnesium (1.7-2.3) mg/dL Total Bilirubin (0.2-1.0) mg/dL AST (10-42) IU/L ALT (10-60) IU/L Alkaline Phosphatase (42-121) IU/L Total Protein (6.4-8.9) g/dL Albumin (3.2-5.5) g/dL Globulin (2.1-4.2) g/dL Albumin/Globulin Ratio (1.0-2.2) Prealbumin (17-34) mg/dL Triglycerides (48-352) mg/dL LDL Cholesterol Direct (75-193) mg/dL dLDL/HDL Ratio 06/16/23 06/15/23 Range/Units 00:05 18:02 WBC (4.8-10.8) x10^3/uL RBC (4.20-5.40) 10^6/uL Hgb (12.0-16.0) g/dL Hct (37.0-47.0) % MCV (81.0-99.0) fL MCH (27.0-31.0) pg MCHC (32.0-36.0) g/dL RDW (12.0-15.0) % Plt Count (130-450) 10^3/uL MPV (7.9-10.8) fL Neut # (Auto) Lymph # (Auto) [place] # (Auto) Eos # (Auto) Baso # (Auto) Absolute Nucleated RBC Total Counted Band Neuts % (Manual) (0 - 10) % Abnorm Lymph % (Manual) % Metamyelocytes % ( - 0) % Nucleated RBC % Neutrophils # (Manual) (1.5-6.6) 10^3/uL Lymphocytes # (Manual) (1.5-3.5) 10^3/uL Monocytes # (Manual) (0.0-1.0) 10^3/uL Eosinophils # (Manual) (0-0.7) 10^3/uL Basophils # (Manual) (0-0.1) 10^3/uL Differential Comment Platelet Estimate (NORMAL) Platelet Morphology (NORMAL) RBC Morph Micro Appear (NORMAL) Bld Gas Analysis Time Sample Site ABG pH (7.35-7.45) ABG pCO2 (34-45) mmHg ABG pO2 (80-100) mmHg ABG HCO3 (22.0-26.0) mmol/L ABG Total CO2 (21.0-29.0) MMOL/L ABG O2 Saturation (94-98) % ABG Base Excess (-2.0-3.0) mmol/L Kody Test VBG pH (7.31-7.41) Ionized Calcium (1.15-1.33) mmol/L Respiration Rate b/min O2 Delivery Device Vent Mode FiO2 Tidal Volume mL PEEP cmH2O Pressure Support Vent cmH2O Sodium (135-145) mmol/L Potassium (3.5-4.5) mmol/L Chloride (101-111) mmol/L Carbon Dioxide (21-32) mmol/L Anion Gap (6-13) BUN (6-20) mg/dL Creatinine (0.6-1.3) mg/dL Estimated GFR (MDRD) (>89) Glucose (74-104) mg/dL POC Whole Bld Glucose 187 H 206 H (70 - 100) mg/dL Calcium (8.5-10.3) mg/dL Phosphorus (2.5-5.0) mg/dL Magnesium (1.7-2.3) mg/dL Total Bilirubin (0.2-1.0) mg/dL AST (10-42) IU/L ALT (10-60) IU/L Alkaline Phosphatase (42-121) IU/L Total Protein (6.4-8.9) g/dL Albumin (3.2-5.5) g/dL Globulin (2.1-4.2) g/dL Albumin/Globulin Ratio (1.0-2.2) Prealbumin (17-34) mg/dL Triglycerides (48-352) mg/dL LDL Cholesterol Direct (75-193) mg/dL dLDL/HDL Ratio Sepsis Event Note (H) - Evaluation Current Stage of Sepsis: Sepsis Possible source of Sepsis: positive: Pulmonary - Sepsis Criteria Sepsis Criteria: Recorded Heart Rate greater than 90 bpm, Respiratory: Increasing oxygen requirements, WBC count greater than 10% bands, WBC count greater than 12,000 or less than 4000, MAP less than 65 mmHg, Metabolic: lactate > 2 mmol/L Assessment/Plan - Problem List (1) Acute respiratory failure with hypoxia Impression: At presentation patient had severe respiratory distress, wheezing, found to have bilateral pneumonia and pulm edema, as the causes She was admitted to the ICU, needed high levels of supplemental O2, needed to be intubated electively the night of adm, and was placed on the vent. IV sedatives started. She has been on the vent for 3 days Today she had a 30 min CPAP trial in am, ABG done after that and was good. In the afternoon she had 2 hours of CPAP off sedatives and her perameters were good. Extubation ordered>> then I re-evaluated. She was tolerating extubation: RR 26, BP and HR normal, lungs clear at bases and anteriorly Plan: Continue to treat the underlying asthma exacerbation, pneumonia, and pulmonary edema (2) Pneumonia Conclusion/Plan: Patient had bilateral pneumonia on chest x-ray This may be a CAP, or aspiration PNA, since she gets only clear liquid diet because of stomach surgery. Due to a penicillin allergy she did not get Ceftriaxone (plus Zithromax) in the ER. She was started on Levaquin. The CXR done today showed improved but not yet absent infiltrate Plan: Spt culture ordered, await result to tailor antibx Continue with empiric iv Levaquin treatment and empiric iv Flagyl to cover oral anaerobic bacteria (3) Asthma exacerbation Conclusion/Plan: The patient has known asthma, uses Montelukast and inhalers but no steroids, no nebulizers, no home O2 Plan: Cont IV Solu-Medrol TID Continue with DuoNebs scheduled and every 4 hours as needed Continue with Pulmicort twice daily Give Montelukast per ng or po (4) New onset of congestive heart failure Conclusion/Plan: Adm chest x-ray read as having pulmonary edema. BNP very elevated at 1245 The computer read her EKG is having A-fib. I do not agree. My interpretation of EKG : She has P waves and she was in MAT (which is frequently seen with pulmonary disease) We checked troponins x2>> normal Todays CXR showed resolution of pulm edema Plan: We stopped IV fluids despite having sepsis, since TPN started and since she had pulm edema on CXR Remain on telemetry Awaiting Echo to eval LVEF (but today is Mon and we have no Gyn Physician here until -). (5) History of gastric surgery Conclusion/Plan: Exact details were not known (? stomach cancer), but her only diet is clear liquids I reviewed old [facility] records and found: She had gastroparesis, then had gastrectomy when she was 35. Also had malabsorption and refeeding syndrome so she now gets TPN supplements via a port in chest, due to chronic weight loss. Plan: Continue TPN, abd resume her clear liquid diet after extubation (6) On total parenteral nutrition (TPN) Conclusion/Plan: As per Hx. She has a Gutierrez port. 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 She was transferred out. She got a discectomy and a prolonged course of antibiotics. I suspect chronic pain is why she is now on Buprenorphine, gabapentin, tramadol, Lamictal and Strattera She was on IV fentanyl drip for sedation which will also treat chronic pain Plan: will resume her usual po meds after extubation (9) Sepsis Conclusion/Plan: Resolved The patient met criteria for sepsis: Lactic acid >2, WBC < 4K, Bands > 10%, respiratory rate very elevated, MAP less than 65, and her pulm status was the cause.
[2023-06-16 17:41] LABS: CALCIUM, IONIZED 1.08 mmol/L (1.15-1.33); VBG PH 7.505 (7.31-7.41)
[2023-06-16] MEDS ORDERED: CALCIUM GLUC 1,000MG/50ML-NACL 1,000 MG/50 ML BAG IV ONE (17:44)
[2023-06-16] MEDS: TPN (CLINIMIX E 5/15) 2,000 ML with MULTIVITAMIN 10 ML, TRACE ELEMENTS 1 ML IV SCH ×3 (18:03)
[2023-06-16] MEDS: MONTELUKAST 10 MG TABLET PO SCH (20:07)
[2023-06-16] MEDS: lamoTRIgine 100 MG TABLET PO SCH (20:12)
[2023-06-16 21:17] LABS: CALCIUM, IONIZED 1.11 mmol/L (1.15-1.33); VBG PH 7.376 (7.31-7.41)
[2023-06-17] MEDS: INSULIN REGULAR HUMAN 300 UNIT/3 ML VIAL SUBQ SCH ×4 (00:04→18:20)
[2023-06-17] MEDS: SODIUM CHLORIDE FLUSH 0.9% 10 ML SYRINGE IVP SCH ×3 (00:04→16:43)
[2023-06-17] MEDS: KETOROLAC 30 MG/ML VIAL IVP PRN ×2 (01:44→07:49)
[2023-06-17] MEDS: ACETAMINOPHEN 1,000 MG/100 ML 1,000 MG/100 ML BAG IV PRN ×2 (01:57→07:57)
[2023-06-17 04:59] LABS: BASOPHILS % (AUTO) 0.8 %; HCT - HEMATOCRIT 33.7 % (37.0-47.0); LYMPHOCYTES % (AUTO) 8.7 %; MEAN CORPUSCULAR HEMOGLOBIN 27.2 pg (27.0-31.0); MEAN CORPUSCULAR HGB CONC 32.6 g/dL (32.0-36.0); MEAN CORPUSCULAR VOLUME 83.2 fL (81.0-99.0); MEAN PLATELET VOLUME 11.2 fL (7.9-10.8); MONOCYTES % (AUTO) 6.3 %; NEUTROPHILS % (AUTO) 78.6 %; PLT - PLATELET COUNT 141 10^3/uL (130-450); RED BLOOD COUNT 4.05 10^6/uL (4.20-5.40); RED CELL DISTRIBUTION WIDTH 15.5 % (12.0-15.0); WHITE BLOOD COUNT 7.7 x10^3/uL (4.8-10.8)
[2023-06-17 05:11] LABS: ABNORMAL LYMPHS % (MANUAL) 0 %
[2023-06-17 05:23] LABS: CREATININE 1.1 mg/dL (0.6-1.3); MAGNESIUM 2.2 mg/dL (1.7-2.3); POTASSIUM 3.5 mmol/L (3.5-4.5)
[2023-06-17] MEDS: POTASSIUM CHLOR 20 MEQ/100 ML 20 MEQ/100 ML BAG IV SCH ×2 (05:39→06:42)
[2023-06-17 05:47] LABS: CALCIUM, IONIZED 1.04 mmol/L (1.15-1.33); VBG PH 7.456 (7.31-7.41)
[2023-06-17] MEDS ORDERED: methylPREDNISolone SUCCINATE 125 MG/2 ML VIAL IVP SCH ×2 (06:00→08:00)
[2023-06-17] MEDS ORDERED: CALCIUM GLUC 1,000MG/50ML-NACL 1,000 MG/50 ML BAG IV ONE ×2 (06:03→10:24)
[2023-06-17] MEDS: metroNIDAZOLE 500 MG/100 ML 500 MG/100 ML BAG IV SCH ×3 (06:16→22:50)
[2023-06-17 07:00] LABS: BAND NEUTROPHILS % (MANUAL) 6 %; DIFFERENTIAL COMMENT MANUAL DIFFERENTIAL; LYMPHOCYTES # (MANUAL) 1.2 10^3/uL (1.5-3.5); LYMPHOCYTES % (MANUAL) 15 %; MONOCYTES # (MANUAL) 0.4 10^3/uL (0.0-1.0); NEUTROPHILS # (MANUAL) 6.2 10^3/uL (1.5-6.6); PLATELET ESTIMATE, MANUAL NORMAL (130-450,000) (NORMAL); RBC MORPHOLOGY (MULTIPLE) NORMAL APPEARANCE (NORMAL)
[2023-06-17] MEDS: IPRATROPIUM/ALBUTEROL 3 ML NEB INH SCH ×4 (07:11→18:34)
[2023-06-17] MEDS: BUDESONIDE 0.5 MG/2 ML NEB INH SCH ×2 (07:11→18:33)
[2023-06-17] MEDS: levoFLOXacin 750 MG/150 ML 750 MG/150 ML BAG IV SCH (07:52)
[2023-06-17] MEDS: polyethylene glycoL 3350 17 GM PACKET PO SCH (08:11)
[2023-06-17] MEDS: FAMOTIDINE 20 MG/2 ML VIAL IVP SCH ×2 (08:11→20:42)
[2023-06-17] MEDS: FUROSEMIDE 40 MG/4 ML VIAL IVP SCH ×2 (08:11→20:46)
[2023-06-17] MEDS: ENOXAPARIN 40 MG/0.4 ML SYRINGE SUBQ SCH (08:11)
[2023-06-17] MEDS: DULoxetine 60 MG CAPSULE PO SCH (08:11)
[2023-06-17] MEDS: GABAPENTIN 300 MG CAPSULE PO SCH ×2 (08:12→20:41)
[2023-06-17] MEDS: hydrOXYzine PAMOATE 25 MG CAPSULE PO PRN ×2 (08:59→20:41)
[2023-06-17 10:00] LABS: VBG PH 7.563 (7.31-7.41)
[2023-06-17 10:01] LABS: CALCIUM, IONIZED 1.04 mmol/L (1.15-1.33)
[2023-06-17 10:16] LABS: MAGNESIUM 2.1 mg/dL (1.7-2.3); PHOSPHORUS 3.8 mg/dL (2.5-5.0); POTASSIUM 3.8 mmol/L (3.5-4.5)
[2023-06-17] MEDS: POTASSIUM CHLOR 10 MEQ/100 ML 10 MEQ/100 ML BAG IV SCH ×2 (10:36→11:45)
[2023-06-17] MEDS ORDERED: methylPREDNISolone SUCCINATE 40 MG/ML VIAL IVP SCH (14:00)
[2023-06-17] MEDS: ONDANSETRON 4 MG/2 ML VIAL IVP PRN (15:24)
[2023-06-17 15:41] LABS: CALCIUM, IONIZED 1.04 mmol/L (1.15-1.33); VBG PH 7.521 (7.31-7.41)
--- NOTE | 2023-06-17 16:09 | PROVIDER PROGRESS NOTE ---
Subjective - Prog Note Date Prog Note Date: 06/17/23 Prog Note Time: 16:08 - Subjective Pt reports feeling: Improved Subjective: She lives at home. Has caregiver support 2 times a week because of the BKA. Because of complicated GI issues she is on TPN at home, and occasionally does p.o. clear liquids. She has chronic COPD and developed acute respiratory failure over 4 days prior to admission. She was treated as bilateral pneumonia as well as congestive heart failure. She was intubated, and then extubated. Yesterday she was extubated at 4 PM. She seems vague and confused this morning. But denies any pain. Follows two- step commands. Current Medications - Current Medications Current Medications: Active Medications Albuterol/Ipratropium (Ipratropium/Albuterol 3 Ml Neb) 3 ml INH Q4HR PRN PRN Reason: Wheezing Albuterol/Ipratropium (Ipratropium/Albuterol 3 Ml Neb) 3 ml INH RTQID [facility] Last Admin: 06/17/23 16:08 Dose: Not Given Budesonide (Budesonide 0.5 Mg/2 Ml Neb) 0.5 mg INH RTBID MY Last Admin: 06/17/23 07:11 Dose: 0.5 mg Duloxetine HCl (Duloxetine 60 Mg Capsule) 60 mg PO DAILY [facility] Last Admin: 06/17/23 08:11 Dose: 60 mg Enoxaparin Sodium (Enoxaparin 40 Mg/0.4 Ml Syringe) 40 mg SUBQ DAILY [facility] Last Admin: 06/17/23 08:11 Dose: 40 mg Famotidine (Famotidine 20 Mg/2 Ml Vial) 20 mg IVP BID MY Last Admin: 06/17/23 08:11 Dose: 20 mg Furosemide (Furosemide 40 Mg/4 Ml Vial) 40 mg IVP BID [facility] Last Admin: 06/17/23 08:11 Dose: 40 mg Gabapentin (Gabapentin 300 Mg Capsule) 300 mg PO BID [facility] Last Admin: 06/17/23 08:12 Dose: 300 mg Hydralazine HCl (Hydralazine Inj 20 Mg/Ml Vial) 10 mg IVP Q6H PRN PRN Reason: Hypertensive Emergency Last Admin: 06/13/23 22:30 Dose: 10 mg Hydroxyzine Pamoate (Hydroxyzine Pamoate 25 Mg Capsule) 100 mg PO TID PRN PRN Reason: Anxiety Last Admin: 06/17/23 08:59 Dose: 100 mg Metronidazole (Flagyl 500 Mg/100 Ml) 500 mg in 100 mls @ 100 mls/hr IV Q8H [facility] Last Infusion: 06/17/23 16:30 Dose: Infused Levofloxacin (Levaquin 750 Mg/150 Ml) 750 mg in 150 mls @ 100 mls/hr IV Q24H [facility] Last Infusion: 06/17/23 09:22 Dose: Infused Acetaminophen (Acetaminophen) 1,000 mg in 100 mls @ 400 mls/hr IV Q6HR PRN PRN Reason: Pain or Fever > 38C (100.4F) Last Infusion: 06/17/23 08:15 Dose: Infused Multivitamins 10 ml/ TRACE ELEMENTS 1 ml/ Amino Ac/Electrol/Dextrose/Calcium 2,011 mls @ 75 mls/hr IV 1900 [facility]; Protocol Last Admin: 06/16/23 18:03 Dose: 75 mls/hr Insulin Human Regular (Insulin Regular Human 300 Unit/3 Ml Vial) 1 - 9 unit SUBQ Q6HR [facility]; Protocol Last Admin: 06/17/23 12:09 Dose: 3 unit Ketorolac Tromethamine (Ketorolac 30 Mg/Ml Vial) 30 mg IVP Q6HR PRN PRN Reason: Severe Pain (Level 7-10) Stop: 06/21/23 19:32 Last Admin: 06/17/23 07:49 Dose: 30 mg Lamotrigine (Lamotrigine 100 Mg Tablet) 400 mg PO HS [facility] Last Admin: 06/16/23 20:12 Dose: 400 mg Lorazepam (Lorazepam 0.5 Mg Tablet) 0.5 mg PO Q6H PRN PRN Reason: Anxiety Methylprednisolone (Methylprednisolone Succinate 40 Mg/Ml Vial) 80 mg IVP TID [facility] Last Admin: 06/17/23 15:24 Dose: 80 mg Montelukast Sodium (Montelukast 10 Mg Tablet) 10 mg PO QPM [facility] Last Admin: 06/16/23 20:07 Dose: 10 mg Ondansetron HCl (Ondansetron 4 Mg/2 Ml Vial) 4 mg IVP Q6HR PRN PRN Reason: Nausea / Vomiting Last Admin: 06/17/23 15:24 Dose: 4 mg Patient Own Med ( Buprenorphine 7.5mcg /Hr Weekly Patch) 1 each TOP FR [facility] Last Admin: 06/13/23 20:38 Dose: Not Given Polyethylene Glycol (Polyethylene Glycol 3350 17 Gm Packet) 17 gm PO DAILY [facility] Last Admin: 06/17/23 08:11 Dose: 17 gm Sodium Chloride (Sodium Chloride Flush 0.9% 10 Ml Syringe) 10 ml IVP 0100,0900,1700 [facility] Last Admin: 06/17/23 09:23 Dose: 10 ml Sodium Chloride (Sodium Chloride Flush 0.9% 10 Ml Syringe) 10 ml IVP PRN PRN PRN Reason: NEEDED PER PROVIDER ORDERS Last Admin: 06/16/23 08:40 Dose: 10 ml Albuterol Sulf [Ventolin Hfa Inhaler] 1 - 2 puffs IH PRN PRN 06/13/21 Baclofen [Lioresal] 1 tablet ORAL Q6H PRN 06/13/21 Cetirizine [ZyrTEC] 1 tab ORAL HS 06/13/21 Duloxetine HCl [Cymbalta] 60 mg PO DAILY 06/13/21 Montelukast [Singulair] 1 tab ORAL DAILY 06/13/21 lamoTRIgine [Lamictal] 2 tablet PO HS 06/13/21 traMADol [Ultram] 1 tablet ORAL PRN PRN 06/13/21 Gabapentin [Neurontin] 300 mg ORAL TID 11/05/22 Meloxicam, Submicronized [Meloxicam] 15 mg PO DAILY 11/06/22 Atomoxetine HCl [Strattera] 80 mg PO DAILY 06/13/23 Biotin/Lutein [Biotin Plus 5,000 Mcg Tablet] 2 each PO DAILY 06/13/23 Buprenorphine 1 each TD FR 06/13/23 Cholecalciferol (Vitamin D3) [Vitamin D3] 125 mcg PO DAILY 06/13/23 Fluticasone Propion/Salmeterol [Wixela 250-50 Inhub] 1 puffs PO BID 06/13/23 Hydrocodone/Acetaminophen [Hydrocodone-Acetamin 5-300 mg] 2 each PO Q6H PRN 06/13/23 Vitamin K2 [Mk-7] 90 mcg PO DAILY 06/13/23 hydrOXYzine HCL [Hydroxyzine HCl] 100 mg PO TID PRN 06/13/23 Objective - Vital Signs/Intake & Output Reviewed Vital Signs: Yes Vital Signs: Vital Signs Temp Pulse Resp BP Pulse Ox O2 Flow Rate 06/17/23 16:05 37.5 C 85 22 133/80 H 94 6 06/17/23 14:00 90 28 H 135/90 H 91 L 6 06/17/23 13:00 91 31 H 140/87 H 91 L 6 Intake & Output: Intake & Output 06/14/23 06/15/23 06/16/23 06/17/23 23:59 23:59 23:59 23:59 Intake Total 3382.152 3395.920 5173.083 1890 Output Total 4780 3400 4875 5 Balance -1397.848 -2169.378 -1924.917 -165 - Objective General Appearance: positive: No acute distress, Other (Sleeps most of the time, but wakes easily to my voice. Long curly evronica red/purple hair) Eyes Bilateral: positive: PERRL, EOMI ENT: positive: No signs of dehydration, Other (No teeth) Neck: positive: No JVD. negative: Stiff neck Respiratory: positive: No respiratory distress. negative: Wheezes, Rales, Rhonchi Cardiovascular: positive: Regular rate & rhythm Abdomen: positive: Non-tender, No organomegaly, Nml bowel sounds, No distention Skin: positive: Warm, Dry Extremities: positive: Full ROM, No pedal edema, Other (Right BKA with stump closed and healed. Able to flex at the hip and flex at the knee without any difficulty.Left foot turned inward and inverted. Not clear why) Neurologic/Psychiatric: positive: CN's nml (2-12), Motor nml, Disoriented to time - Lab Results Fish Bones: 06/17/23 04:15 06/17/23 15:33 Other Labs: Lab Results x24hrs 06/17/23 06/17/23 06/17/23 Range/Units 15:33 15:33 11:50 WBC (4.8-10.8) x10^3/uL RBC (4.20-5.40) 10^6/uL Hgb (12.0-16.0) g/dL Hct (37.0-47.0) % MCV (81.0-99.0) fL MCH (27.0-31.0) pg MCHC (32.0-36.0) g/dL RDW (12.0-15.0) % Plt Count (130-450) 10^3/uL MPV (7.9-10.8) fL Neut # (Auto) Lymph # (Auto) [place] # (Auto) Eos # (Auto) Baso # (Auto) Absolute Nucleated RBC Total Counted Band Neuts % (Manual) (0 - 10) % Abnorm Lymph % (Manual) % Nucleated RBC % Neutrophils # (Manual) (1.5-6.6) 10^3/uL Lymphocytes # (Manual) (1.5-3.5) 10^3/uL Monocytes # (Manual) (0.0-1.0) 10^3/uL Eosinophils # (Manual) (0-0.7) 10^3/uL Basophils # (Manual) (0-0.1) 10^3/uL Differential Comment Platelet Estimate (NORMAL) RBC Morph Micro Appear (NORMAL) VBG pH 7.521 H (7.31-7.41) Ionized Calcium 1.04 L (1.15-1.33) mmol/L Sodium (135-145) mmol/L Potassium 3.7 (3.5-4.5) mmol/L Chloride (101-111) mmol/L Carbon Dioxide (21-32) mmol/L Anion Gap (6-13) BUN (6-20) mg/dL Creatinine (0.6-1.3) mg/dL Estimated GFR (MDRD) (>89) Glucose (74-104) mg/dL POC Whole Bld Glucose 224 H (70 - 100) mg/dL Calcium (8.5-10.3) mg/dL Phosphorus (2.5-5.0) mg/dL Magnesium (1.7-2.3) mg/dL 06/17/23 06/17/23 06/17/23 Range/Units 09:54 08:49 05:33 WBC (4.8-10.8) x10^3/uL RBC (4.20-5.40) 10^6/uL Hgb (12.0-16.0) g/dL Hct (37.0-47.0) % MCV (81.0-99.0) fL MCH (27.0-31.0) pg MCHC (32.0-36.0) g/dL RDW (12.0-15.0) % Plt Count (130-450) 10^3/uL MPV (7.9-10.8) fL Neut # (Auto) Lymph # (Auto) [place] # (Auto) Eos # (Auto) Baso # (Auto) Absolute Nucleated RBC Total Counted Band Neuts % (Manual) (0 - 10) % Abnorm Lymph % (Manual) % Nucleated RBC % Neutrophils # (Manual) (1.5-6.6) 10^3/uL Lymphocytes # (Manual) (1.5-3.5) 10^3/uL Monocytes # (Manual) (0.0-1.0) 10^3/uL Eosinophils # (Manual) (0-0.7) 10^3/uL Basophils # (Manual) (0-0.1) 10^3/uL Differential Comment Platelet Estimate (NORMAL) RBC Morph Micro Appear (NORMAL) VBG pH 7.563 H (7.31-7.41) Ionized Calcium 1.04 L (1.15-1.33) mmol/L Sodium (135-145) mmol/L Potassium 3.8 (3.5-4.5) mmol/L Chloride (101-111) mmol/L Carbon Dioxide (21-32) mmol/L Anion Gap (6-13) BUN (6-20) mg/dL Creatinine (0.6-1.3) mg/dL Estimated GFR (MDRD) (>89) Glucose (74-104) mg/dL POC Whole Bld Glucose 158 H (70 - 100) mg/dL Calcium (8.5-10.3) mg/dL Phosphorus 3.8 (2.5-5.0) mg/dL Magnesium 2.1 (1.7-2.3) mg/dL 06/17/23 06/17/23 06/17/23 Range/Units 04:15 04:15 04:15 WBC 7.7 (4.8-10.8) x10^3/uL RBC 4.05 L (4.20-5.40) 10^6/uL Hgb 11.0 L (12.0-16.0) g/dL Hct 33.7 L (37.0-47.0) % MCV 83.2 (81.0-99.0) fL MCH 27.2 (27.0-31.0) pg MCHC 32.6 (32.0-36.0) g/dL RDW 15.5 H (12.0-15.0) % Plt Count 141 (130-450) 10^3/uL MPV 11.2 H (7.9-10.8) fL Neut # (Auto) Not Reportable Lymph # (Auto) Not Reportable [place] # (Auto) Not Reportable Eos # (Auto) Not Reportable Baso # (Auto) Not Reportable Absolute Nucleated RBC Not Reportable Total Counted 100 Band Neuts % (Manual) 6 (0 - 10) % Abnorm Lymph % (Manual) 0 % Nucleated RBC % Not Reportable Neutrophils # (Manual) 6.2 (1.5-6.6) 10^3/uL Lymphocytes # (Manual) 1.2 L (1.5-3.5) 10^3/uL Monocytes # (Manual) 0.4 (0.0-1.0) 10^3/uL Eosinophils # (Manual) 0.0 (0-0.7) 10^3/uL Basophils # (Manual) 0.0 (0-0.1) 10^3/uL Differential Comment MANUAL DIFFERENTIAL Platelet Estimate NORMAL (130-450,000) (NORMAL) RBC Morph Micro Appear NORMAL APPEARANCE (NORMAL) VBG pH 7.456 H (7.31-7.41) Ionized Calcium 1.04 L (1.15-1.33) mmol/L Sodium 142 (135-145) mmol/L Potassium 3.5 (3.5-4.5) mmol/L Chloride 98 L (101-111) mmol/L Carbon Dioxide 34 H (21-32) mmol/L Anion Gap 10.0 (6-13) BUN 73 H (6-20) mg/dL Creatinine 1.1 (0.6-1.3) mg/dL Estimated GFR (MDRD) 53 L (>89) Glucose 233 H (74-104) mg/dL POC Whole Bld Glucose (70 - 100) mg/dL Calcium 8.0 L (8.5-10.3) mg/dL Phosphorus 4.0 (2.5-5.0) mg/dL Magnesium 2.2 (1.7-2.3) mg/dL 1106/16/23 06/16/23 Range/Units 23:43 21:10 17:57 WBC (4.8-10.8) x10^3/uL RBC (4.20-5.40) 10^6/uL Hgb (12.0-16.0) g/dL Hct (37.0-47.0) % MCV (81.0-99.0) fL MCH (27.0-31.0) pg MCHC (32.0-36.0) g/dL RDW (12.0-15.0) % Plt Count (130-450) 10^3/uL MPV (7.9-10.8) fL Neut # (Auto) Lymph # (Auto) [place] # (Auto) Eos # (Auto) Baso # (Auto) Absolute Nucleated RBC Total Counted Band Neuts % (Manual) (0 - 10) % Abnorm Lymph % (Manual) % Nucleated RBC % Neutrophils # (Manual) (1.5-6.6) 10^3/uL Lymphocytes # (Manual) (1.5-3.5) 10^3/uL Monocytes # (Manual) (0.0-1.0) 10^3/uL Eosinophils # (Manual) (0-0.7) 10^3/uL Basophils # (Manual) (0-0.1) 10^3/uL Differential Comment Platelet Estimate (NORMAL) RBC Morph Micro Appear (NORMAL) VBG pH 7.376 (7.31-7.41) Ionized Calcium 1.11 L (1.15-1.33) mmol/L Sodium (135-145) mmol/L Potassium (3.5-4.5) mmol/L Chloride (101-111) mmol/L Carbon Dioxide (21-32) mmol/L Anion Gap (6-13) BUN (6-20) mg/dL Creatinine (0.6-1.3) mg/dL Estimated GFR (MDRD) (>89) Glucose (74-104) mg/dL POC Whole Bld Glucose 278 H 163 H (70 - 100) mg/dL Calcium (8.5-10.3) mg/dL Phosphorus (2.5-5.0) mg/dL Magnesium (1.7-2.3) mg/dL 06/16/23 Range/Units 17:25 WBC (4.8-10.8) x10^3/uL RBC (4.20-5.40) 10^6/uL Hgb (12.0-16.0) g/dL Hct (37.0-47.0) % MCV (81.0-99.0) fL MCH (27.0-31.0) pg MCHC (32.0-36.0) g/dL RDW (12.0-15.0) % Plt Count (130-450) 10^3/uL MPV (7.9-10.8) fL Neut # (Auto) Lymph # (Auto) [place] # (Auto) Eos # (Auto) Baso # (Auto) Absolute Nucleated RBC Total Counted Band Neuts % (Manual) (0 - 10) % Abnorm Lymph % (Manual) % Nucleated RBC % Neutrophils # (Manual) (1.5-6.6) 10^3/uL Lymphocytes # (Manual) (1.5-3.5) 10^3/uL Monocytes # (Manual) (0.0-1.0) 10^3/uL Eosinophils # (Manual) (0-0.7) 10^3/uL Basophils # (Manual) (0-0.1) 10^3/uL Differential Comment Platelet Estimate (NORMAL) RBC Morph Micro Appear (NORMAL) VBG pH 7.505 H (7.31-7.41) Ionized Calcium 1.08 L (1.15-1.33) mmol/L Sodium (135-145) mmol/L Potassium (3.5-4.5) mmol/L Chloride (101-111) mmol/L Carbon Dioxide (21-32) mmol/L Anion Gap (6-13) BUN (6-20) mg/dL Creatinine (0.6-1.3) mg/dL Estimated GFR (MDRD) (>89) Glucose (74-104) mg/dL POC Whole Bld Glucose (70 - 100) mg/dL Calcium (8.5-10.3) mg/dL Phosphorus (2.5-5.0) mg/dL Magnesium (1.7-2.3) mg/dL Sepsis Event Note (H) - Evaluation Current Stage of Sepsis: Sepsis Possible source of Sepsis: positive: Pulmonary - Sepsis Criteria Sepsis Criteria: Recorded Heart Rate greater than 90 bpm, Respiratory: Increasing oxygen requirements, WBC count greater than 10% bands, WBC count greater than 12,000 or less than 4000, MAP less than 65 mmHg, Metabolic: lactate > 2 mmol/L Assessment/Plan - Problem List (1) Acute respiratory failure with hypoxia Impression: At presentation patient had severe respiratory distress, wheezing, found to have bilateral pneumonia and pulm edema, as the causes She was admitted to the ICU, needed high levels of supplemental O2, needed to be intubated electively the night of adm, and was placed on the vent. IV sedatives started. She was on the vent for 3 days and extubated after CPAP trial 06/16. Nursing reports that when she gets anxious, she starts to hyperventilate, and drop her sats. When she is asleep she is great. But when she wakes up, starts becoming emotionally upset, and they are asking if I could give some Ativan. Continue to treat her pneumonia and asthma exacerbation with antibiotics, steroids I will transfer to [facility], Start Ativan 0.5 mg p.o. every 6 hours as needed anxiety, and resume her usual meds. Please see problem #8 (2) Pneumonia Conclusion/Plan: Patient had bilateral pneumonia on chest x-ray This may be a CAP, or aspiration PNA, since she gets only clear liquid diet because of stomach surgery. Due to a penicillin allergy she did not get Ceftriaxone (plus Zithromax) in the ER. She was started on Levaquin.Today's day #4. The CXR done 06/17 showed improved but not yet absent infiltrate. White cell count started at 3.5 on admission. She peaked at 18.2 on the . Yesterday she went to normal at 6.4. Today she is 7.7. Between extubation and white cell count is coming down, she is improving. Respiratory status has remained stable since extubation yesterday. She is on 6 L/min and is saturating at 91 to 94%. Blood cultures have grown haemophilus influenza. Treatment for illness that is not meningitis related is usually amoxicillin with clavulanic acid or cephalosporin or ampicillin/amoxicillin. She is not on these drugs because of penicillin allergy. Alternative regimens can be quinolone such as Levaquin and she has responded to that. Duration of therapy should be 5 to 7 days and she can be switched to p.o. therapy when clinically improved and able to take oral medications. Antibiotics can be stopped after 5 days if they work hypoxic. But she is hypoxic. Plan: Spt culture ordered and I will review once available Continue with empiric iv Levaquin treatment for 7 days and empiric iv Flagyl as well to cover oral anaerobic bacteria (3) Asthma exacerbation Conclusion/Plan: The patient has known asthma, uses Montelukast and inhalers but no steroids, no nebulizers, no home O2 Plan: Solu-Medrol is at 80 mg IV push 3 times daily. I will decrease to 40 mg twice daily for tomorrow then once a day after and then discontinue Continue with DuoNebs scheduled and every 4 hours as needed Continue with Pulmicort twice daily Give Montelukast per ng or po (4) New onset of congestive heart failure Conclusion/Plan: Adm chest x-ray read as having pulmonary edema. BNP very elevated at 1245 The computer read her EKG is having A-fib. I do not agree. My interpretation of EKG : She has P waves and she was in MAT (which is frequently seen with pulmonary disease) We checked troponins x2>> normal 06/16 CXR showed resolution of pulm edema . Intravenous maintenance fluids have been discontinued. TPN has been resumed. Echocardiogram was done today. But results are pending. Plan: Stop telemetry. Review echo results tomorrow when available (5) History of gastric surgery Conclusion/Plan: Exact details were not known (? stomach cancer), but her only diet is clear liquids I reviewed [facility] records and found: She had gastroparesis, then had gastrectomy when she was 35. Also had malabsorption and refeeding syndrome so she now gets TPN supplements via a port in chest, due to chronic weight loss. Plan: Continue TPN, abd resume her clear liquid diet after extubation (6) On total parenteral nutrition (TPN) Conclusion/Plan: As per Hx. She has a Gutierrez port. Plan: Will continue her usual TPN, but we did not give lipids, since she was on Pro pofol drip which has a high lipid load (7) R BKA: S88.111A Conclusion/Plan: I reviewed [facility] records and found: She had right BKA in 01/16 secondary to necrotizing fasciitis (8) Chronic pain after spinal surgery Conclusion/Plan: Per records, in 11/16, she presented to our ER for LBP and found to have L4 and L5 vertebral body erosion with inflammatory changes consistent with discitis/osteomyelitis. She was transferred out. She got a discectomy and a prolonged course of antibiotics. I suspect chronic pain is why she is now on Buprenorphine, gabapentin, tramadol, Lamictal and Strattera She was on IV fentanyl drip for sedation which will also treat chronic pain. Plan: Her resumed medications are Lamictal, buprenorphine patch, and I will resume the Cymbalta, hydrocodone, hydroxyzine, baclofen, gabapentin. I will order PT and OT evaluation today to assess strength and mobility (9) Sepsis Conclusion/Plan: Resolved The patient met criteria for sepsis: Lactic acid >2, WBC < 4K, Bands > 10%, respiratory rate very elevated, MAP less than 65, and her pulm status was the cause.
[2023-06-17] MEDS: TPN (CLINIMIX E 5/15) 2,000 ML with MULTIVITAMIN 10 ML, TRACE ELEMENTS 1 ML IV SCH ×3 (18:20)
[2023-06-17] MEDS: LORazepam 0.5 MG TABLET PO PRN (20:41)
[2023-06-17] MEDS: lamoTRIgine 100 MG TABLET PO SCH (20:41)
[2023-06-17] MEDS: methylPREDNISolone SUCCINATE 40 MG/ML VIAL IVP SCH (20:42)
[2023-06-17] MEDS: MONTELUKAST 10 MG TABLET PO SCH (20:42)
[2023-06-17] MEDS: BACLOFEN 10 MG TABLET PO SCH (22:47)
[2023-06-18] MEDS: INSULIN REGULAR HUMAN 300 UNIT/3 ML VIAL SUBQ SCH ×5 (00:19→23:58)
[2023-06-18] MEDS: SODIUM CHLORIDE FLUSH 0.9% 10 ML SYRINGE IVP SCH ×4 (00:20→21:04)
[2023-06-18] MEDS: BUDESONIDE 0.5 MG/2 ML NEB INH SCH ×2 (05:28→20:00)
[2023-06-18] MEDS: IPRATROPIUM/ALBUTEROL 3 ML NEB INH SCH ×4 (05:28→20:00)
[2023-06-18] MEDS: BACLOFEN 10 MG TABLET PO SCH ×3 (05:58→21:01)
[2023-06-18] MEDS: metroNIDAZOLE 500 MG/100 ML 500 MG/100 ML BAG IV SCH ×3 (06:45→23:24)
[2023-06-18 07:59] LABS: ALBUMIN 2.7 g/dL (3.2-5.5); PREALBUMIN 32 mg/dL (17-34); TRIGLYCERIDES 417 mg/dL (48-352)
[2023-06-18 08:09] LABS: ALBUMIN/GLOBULIN RATIO 1.1 (1.0-2.2); ALKALINE PHOSPHATASE 133 IU/L (42-121); ALT ALANINE AMINOTRANSFERASE 521 IU/L (10-60); AST ASPARTATE AMINOTRANSFERASE 195 IU/L (10-42); BILIRUBIN,TOTAL 0.6 mg/dL (0.2-1.0); BUN - BLOOD UREA NITROGEN 47 mg/dL (6-20); CALCIUM 8.3 mg/dL (8.5-10.3); CARBON DIOXIDE - CO2 33 mmol/L (21-32); CHLORIDE 93 mmol/L (101-111); CREATININE 0.7 mg/dL (0.6-1.3); GFR - MDRD 89 (>89); GLUCOSE 160 mg/dL (74-104); POTASSIUM 3.6 mmol/L (3.5-4.5); SODIUM 134 mmol/L (135-145); TOTAL PROTEIN 5.1 g/dL (6.4-8.9)
[2023-06-18 08:11] LABS: LDL CHOLESTEROL,DIRECT 100 mg/dL (75-193)
--- NOTE | 2023-06-18 08:24 | PROVIDER PROGRESS NOTE ---
Progress Note June 18, 2023 8:22 AM Nurse was worried that the patient had had a stroke. She was not moving her right arm. The patient has a history of a complete right rotator cuff tear and does not move her arm very well. But her speech is stable. She is oriented. She has no other focal deficits. Patient herself has no new complaints. PT and OT did see her yesterday. She lives with her son and daughter in a single level home. Uses a cane, front walker, four-wheel walker, crutches and a wheelchair. Occasionally walks, is independent with activities of daily living. Her main barriers are chronic back pain and her anxiety with bipolar disorder. She was confused and lethargic for them yesterday and oriented to self only. They noted the excessive inversion and plantarflexion of her left ankle that I saw on exam yesterday. 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 This morning she seems pretty cheerful. More verbal. Oriented to self and place today. Has chronic right arm pain. Chronic back pain but no other complaints. She has been transitioned out of ICU and onto MedSurg. Nutrition services is really worried about her rising LFTs. They were normal on admission. Her AST was 11 and is now peaked at 298 yesterday. Today 195. ALT on admission was 9 and she is 521 today. Bilirubin is normal. Alk phos is 133 and is slightly coming down. Triglycerides are 417 which are improved from the 733 on June 14. She is working with physical therapy. She was able to get herself to the edge of the bed but needs max assist x 2. She is not very alert, is impulsive. Complains of nausea, shortness of breath. The shortness of breath was evaluated and lung exam is clear with O2 sats that are normal. Physical therapy is recommending nursing home facility for short-term rehab. Nursing reports that her right BKA stump is starting to breakdown at the incision site and drain. Active Medications Albuterol/Ipratropium (Ipratropium/Albuterol 3 Ml Neb) 3 ml INH Q4HR PRN PRN Reason: Wheezing Albuterol/Ipratropium (Ipratropium/Albuterol 3 Ml Neb) 3 ml INH RTQID MY Last Admin: 06/18/23 05:28 Dose: 3 ml Baclofen (Baclofen 10 Mg Tablet) 10 mg PO TID [facility] Last Admin: 06/18/23 05:58 Dose: 10 mg Budesonide (Budesonide 0.5 Mg/2 Ml Neb) 0.5 mg INH RTBID [facility] Last Admin: 06/18/23 05:28 Dose: 0.5 mg Duloxetine HCl (Duloxetine 60 Mg Capsule) 60 mg PO DAILY [facility] Last Admin: 06/17/23 08:11 Dose: 60 mg Enoxaparin Sodium (Enoxaparin 40 Mg/0.4 Ml Syringe) 40 mg SUBQ DAILY [facility] Last Admin: 06/17/23 08:11 Dose: 40 mg Famotidine (Famotidine 20 Mg/2 Ml Vial) 20 mg IVP BID [facility] Last Admin: 06/17/23 20:42 Dose: 20 mg Furosemide (Furosemide 40 Mg/4 Ml Vial) 40 mg IVP BID [facility] Last Admin: 06/17/23 20:46 Dose: 40 mg Gabapentin (Gabapentin 300 Mg Capsule) 300 mg PO BID [facility] Last Admin: 06/17/23 20:41 Dose: 300 mg Hydralazine HCl (Hydralazine Inj 20 Mg/Ml Vial) 10 mg IVP Q6H PRN PRN Reason: Hypertensive Emergency Last Admin: 06/13/23 22:30 Dose: 10 mg Hydroxyzine Pamoate (Hydroxyzine Pamoate 25 Mg Capsule) 100 mg PO TID PRN PRN Reason: Anxiety Last Admin: 06/17/23 20:41 Dose: 100 mg Metronidazole (Flagyl 500 Mg/100 Ml) 500 mg in 100 mls @ 100 mls/hr IV Q8H [facility] Last Admin: 06/18/23 06:45 Dose: 100 mls/hr Levofloxacin (Levaquin 750 Mg/150 Ml) 750 mg in 150 mls @ 100 mls/hr IV Q24H [facility] Last Infusion: 06/17/23 09:22 Dose: Infused Acetaminophen (Acetaminophen) 1,000 mg in 100 mls @ 400 mls/hr IV Q6HR PRN PRN Reason: Pain or Fever > 38C (100.4F) Last Infusion: 06/17/23 08:15 Dose: Infused Multivitamins 10 ml/ TRACE ELEMENTS 1 ml/ Amino Ac/Electrol/Dextrose/Calcium 2,011 mls @ 75 mls/hr IV 1900 MY; Protocol Last Admin: 06/17/23 18:20 Dose: 75 mls/hr Insulin Human Regular (Insulin Regular Human 300 Unit/3 Ml Vial) 1 - 9 unit SUBQ Q6HR [facility]; Protocol Last Admin: 06/18/23 05:58 Dose: 1 unit Ketorolac Tromethamine (Ketorolac 30 Mg/Ml Vial) 30 mg IVP Q6HR PRN PRN Reason: Severe Pain (Level 7-10) Stop: 06/21/23 19:32 Last Admin: 06/17/23 07:49 Dose: 30 mg Lamotrigine (Lamotrigine 100 Mg Tablet) 400 mg PO HS [facility] Last Admin: 06/17/23 20:41 Dose: 400 mg Lorazepam (Lorazepam 0.5 Mg Tablet) 0.5 mg PO Q6H PRN PRN Reason: Anxiety Last Admin: 06/17/23 20:41 Dose: 0.5 mg Methylprednisolone (Methylprednisolone Succinate 40 Mg/Ml Vial) 40 mg IVP BID [facility] Stop: 06/18/23 09:01 Last Admin: 06/17/23 20:42 Dose: 40 mg Montelukast Sodium (Montelukast 10 Mg Tablet) 10 mg PO QPM [facility] Last Admin: 06/17/23 20:42 Dose: 10 mg Ondansetron HCl (Ondansetron 4 Mg/2 Ml Vial) 4 mg IVP Q6HR PRN PRN Reason: Nausea / Vomiting Last Admin: 06/17/23 15:24 Dose: 4 mg Patient Own Med ( Buprenorphine 7.5mcg /Hr Weekly Patch) 1 each TOP FR [facility] Last Admin: 06/13/23 20:38 Dose: Not Given Polyethylene Glycol (Polyethylene Glycol 3350 17 Gm Packet) 17 gm PO DAILY [facility] Last Admin: 06/17/23 08:11 Dose: 17 gm Sodium Chloride (Sodium Chloride Flush 0.9% 10 Ml Syringe) 10 ml IVP 0100,0900,1700 [facility] Last Admin: 06/18/23 00:20 Dose: 10 ml Sodium Chloride (Sodium Chloride Flush 0.9% 10 Ml Syringe) 10 ml IVP PRN PRN PRN Reason: NEEDED PER PROVIDER ORDERS Last Admin: 06/16/23 08:40 Dose: 10 ml Albuterol Sulf [Ventolin Hfa Inhaler] 1 - 2 puffs IH PRN PRN 06/13/21 Baclofen [Lioresal] 1 tablet ORAL Q6H PRN 06/13/21 Cetirizine [ZyrTEC] 1 tab ORAL HS 06/13/21 Duloxetine HCl [Cymbalta] 60 mg PO DAILY 06/13/21 Montelukast [Singulair] 1 tab ORAL DAILY 06/13/21 lamoTRIgine [Lamictal] 2 tablet PO HS 06/13/21 traMADol [Ultram] 1 tablet ORAL PRN PRN 06/13/21 Gabapentin [Neurontin] 300 mg ORAL TID 11/05/22 Meloxicam, Submicronized [Meloxicam] 15 mg PO DAILY 11/06/22 Atomoxetine HCl [Strattera] 80 mg PO DAILY 06/13/23 Biotin/Lutein [Biotin Plus 5,000 Mcg Tablet] 2 each PO DAILY 06/13/23 Buprenorphine 1 each TD FR 06/13/23 Cholecalciferol (Vitamin D3) [Vitamin D3] 125 mcg PO DAILY 06/13/23 Fluticasone Propion/Salmeterol [Wixela 250-50 Inhub] 1 puffs PO BID 06/13/23 Hydrocodone/Acetaminophen [Hydrocodone-Acetamin 5-300 mg] 2 each PO Q6H PRN 06/13/23 Vitamin K2 [Mk-7] 90 mcg PO DAILY 06/13/23 hydrOXYzine HCL [Hydroxyzine HCl] 100 mg PO TID PRN 06/13/23 Exam: Temperature is 36.5, heart rate 85, blood pressure 112/64, respirations 20. She is 98% saturated on 2 L. Yesterday's intake was 3370 cc. Output was 3630 cc. Today she is 2225 cc negative. Patient still spends her time sleeping but does wake to my voice very easily. Follows two-step commands. Oral mucosa is not dry. She continues to be edentulous. Neck is supple. No respiratory distress and she has clear lungs without crackles rhonchi or wheezing Regular rate and rhythm Abdomen is vaguely achy in the epigastrium but no rebound or guarding she tells me. Hyperactive bowel sounds. Right BKA stump was closed and healed when I saw it yesterday. Today slight edge dehiscence with drainage but no redness, heat, cellulitis. Left ankle turned inward inverted. Laboratory Tests 06/17/23 06/18/23 06/18/23 04:15 07:42 11:18 WBC 7.7 Hgb 11.0 L Hct 33.7 L Plt Count 141 Sodium 134 L Potassium 3.6 Chloride 93 L Carbon Dioxide 33 H BUN 47 H Creatinine 0.7 Glucose 160 H POC Whole Bld Glucose 227 H Calcium 8.3 L AST 195 H ALT 521 H Alkaline Phosphatase 133 H Total Protein 5.1 L Albumin 2.7 L Globulin 2.4 Albumin/Globulin Ratio 1.1 Prealbumin 32 Triglycerides 417 H LDL Cholesterol Direct 100 06/18/23 17:31 WBC Hgb Hct Plt Count Sodium Potassium Chloride Carbon Dioxide BUN Creatinine Glucose POC Whole Bld Glucose 137 H Calcium AST ALT Alkaline Phosphatase Total Protein Albumin Globulin Albumin/Globulin Ratio Prealbumin Triglycerides LDL Cholesterol Direct Assessment/Plan - Problem List (1) Acute respiratory failure with hypoxia Impression: At presentation patient had severe respiratory distress, wheezing, found to have bilateral pneumonia and pulm edema, as the causes She was admitted to the ICU, needed high levels of supplemental O2, needed to be intubated electively the night of adm, and was placed on the vent. IV sedatives started. She was on the vent for 3 days and extubated after CPAP trial 06/16. Nursing reports that when she gets anxious, she starts to hyperventilate, and drop her sats. When she is asleep she is great. But when she wakes up, starts becoming emotionally upset, and they are asking if I could give some Ativan. I added Ativan June 17 and that seems to be working. No further episodes of tachypnea or panic attacks.Her oxygen requirements continue to come down. She was on 6 L after extubation. Down to 3 L earlier this morning. Now down to 2 L by this evening. Continue to treat her pneumonia and asthma exacerbation with antibiotics, steroids. (2) Pneumonia Conclusion/Plan: Patient had bilateral pneumonia on chest x-ray This may be a CAP, or aspiration PNA, since she gets only clear liquid diet because of stomach surgery. Due to a penicillin allergy she did not get Ceftriaxone (plus Zithromax) in the ER. She was started on Levaquin.Today's day #5. The CXR done 06/17 showed improved but not yet absent infiltrate. White cell count started at 3.5 on admission. She peaked at 18.2 on the 18th. Yesterday she went to normal at 6.4. Today she is 7.7. Between extubation and white cell count is coming down, she is improving. Respiratory status has remained stable since extubation yesterday. . Blood cultures have grown haemophilus influenza. Treatment for illness that is not meningitis related is usually amoxicillin with clavulanic acid or cephalosporin or ampicillin/amoxicillin. She is not on these drugs because of penicillin allergy. Alternative regimens can be quinolone such as Levaquin and she has responded to that. Duration of therapy should be 5 to 7 days and she can be switched to p.o. therapy when clinically improved and able to take oral medications. Antibiotics can be stopped after 5 days if they work hypoxic. But she is hypoxic. Plan: Spt culture ordered and I will review once available. Still not available today. Continue with empiric iv Levaquin treatment for 7 days and empiric iv Flagyl as well to cover oral anaerobic bacteria. With decreasing oxygen requirements, and a normal white cell count, she appears to be improving. (3) Asthma exacerbation Conclusion/Plan: The patient has known asthma, uses Montelukast and inhalers but no steroids, no nebulizers, no home O2 Plan: I am tapering her steroids off. Today she is getting 40 mg whereas yesterday she got 80 mg. Tomorrow I will discontinue. Continue with DuoNebs scheduled and every 4 hours as needed Continue with Pulmicort twice daily Give Montelukast per ng or po (4) New onset of congestive heart failure Conclusion/Plan: Adm chest x-ray read as having pulmonary edema. BNP very elevated at 1245 The computer read her EKG is having A-fib. I do not agree. My interpretation of EKG : She has P waves and she was in MAT (which is frequently seen with pulmonary disease) We checked troponins x2>> normal 06/16 CXR showed resolution of pulm edema . Intravenous maintenance fluids have been discontinued. TPN has been resumed. Echocardiogram was done today. But results are pending. Plan: Stop telemetry. Review echo results tomorrow when available (5) History of gastric surgery Conclusion/Plan: Nutrition services states that the patient had severe gastroparesis and that resulted in the gastrectomy at age 35. She is only able to tolerate clear liquids at times. Also had malabsorption and refeeding syndrome so she now gets TPN supplements via a port in chest, due to chronic weight loss. Plan: Continue TPN, abd resume her clear liquid diet after extubation We are going to decrease her TPN to half of what it usually is because of her elevated liver enzymes. (6) On total parenteral nutrition (TPN) Conclusion/Plan: As per Hx. She has a Gutierrez port.Has elevated LFTs that I attribute to TPN. Plan: Reduce rate of TPN to see if that will help with reducing her liver enzymes. Do that for 2 to 3 days and then reassess (7) R BKA: S88.111A Conclusion/Plan: I reviewed old [facility] records and found: She had right BKA in 01/16 secondary to necrotizing fasciitis Wound appears to be coming more dehisced today. Right now no evidence of infection. She is on empiric antibiotics for haemophilus. Levaquin should cover skin. (8) Chronic pain after spinal surgery Conclusion/Plan: Per records, in 11/16, she presented to our ER for LBP and found to have L4 and L5 vertebral body erosion with inflammatory changes consistent with discitis/osteomyelitis. She was transferred out. She got a discectomy and a prolonged course of antibiotics. I suspect chronic pain is why she is now on Buprenorphine, gabapentin, tramadol, Lamictal and Strattera She was on IV fentanyl drip for sedation which will also treat chronic pain. Plan: Her resumed medications are Lamictal, buprenorphine patch, and I will resume the Cymbalta, hydrocodone, hydroxyzine, baclofen, gabapentin. I will order PT and OT evaluation to assess strength and mobility (9) Sepsis Conclusion/Plan: Resolved The patient met criteria for sepsis: Lactic acid >2, WBC < 4K, Bands > 10%, respiratory rate very elevated, MAP less than 65, and her pulm status was the cause.
[2023-06-18] MEDS: GABAPENTIN 300 MG CAPSULE PO SCH ×2 (08:36→19:39)
[2023-06-18] MEDS: FAMOTIDINE 20 MG/2 ML VIAL IVP SCH ×2 (08:36→21:01)
[2023-06-18] MEDS: FUROSEMIDE 40 MG/4 ML VIAL IVP SCH ×2 (08:36→21:01)
[2023-06-18] MEDS: ENOXAPARIN 40 MG/0.4 ML SYRINGE SUBQ SCH (08:37)
[2023-06-18] MEDS: polyethylene glycoL 3350 17 GM PACKET PO SCH (08:37)
[2023-06-18] MEDS: levoFLOXacin 750 MG/150 ML 750 MG/150 ML BAG IV SCH (08:37)
[2023-06-18] MEDS: methylPREDNISolone SUCCINATE 40 MG/ML VIAL IVP SCH (08:37)
[2023-06-18] MEDS: KETOROLAC 30 MG/ML VIAL IVP PRN ×2 (08:53→15:52)
[2023-06-18] MEDS: LORazepam 0.5 MG TABLET PO PRN (08:56)
[2023-06-18] MEDS: DULoxetine 60 MG CAPSULE PO SCH (11:05)
[2023-06-18] MEDS ORDERED: TPN (CLINIMIX E 5/15) 2,000 ML with MULTIVITAMIN 10 ML, TRACE ELEMENTS 1 ML IV SCH ×3 (13:00)
[2023-06-18] MEDS: ACETAMINOPHEN 1,000 MG/100 ML 1,000 MG/100 ML BAG IV PRN (15:52)
[2023-06-18] MEDS: hydrOXYzine PAMOATE 25 MG CAPSULE PO PRN (19:10)
[2023-06-18] MEDS: TPN (CLINIMIX E 5/15) 2,000 ML with MULTIVITAMIN 10 ML, TRACE ELEMENTS 1 ML IV SCH ×3 (19:39)
[2023-06-18] MEDS: MONTELUKAST 10 MG TABLET PO SCH (21:01)
[2023-06-18] MEDS: lamoTRIgine 100 MG TABLET PO SCH (21:01)
[2023-06-19] MEDS: LORazepam 0.5 MG TABLET PO PRN ×3 (00:22→22:03)
[2023-06-19] MEDS: SODIUM CHLORIDE FLUSH 0.9% 10 ML SYRINGE IVP PRN ×5 (00:22→14:10)
[2023-06-19] MEDS: ACETAMINOPHEN 1,000 MG/100 ML 1,000 MG/100 ML BAG IV PRN ×2 (00:22→22:03)
[2023-06-19] MEDS: IPRATROPIUM/ALBUTEROL 3 ML NEB INH SCH ×4 (06:01→18:12)
[2023-06-19] MEDS: BUDESONIDE 0.5 MG/2 ML NEB INH SCH ×2 (06:01→18:12)
[2023-06-19] MEDS: INSULIN REGULAR HUMAN 300 UNIT/3 ML VIAL SUBQ SCH ×3 (06:08→17:54)
[2023-06-19] MEDS: BACLOFEN 10 MG TABLET PO SCH ×3 (06:08→21:03)
[2023-06-19] MEDS: metroNIDAZOLE 500 MG/100 ML 500 MG/100 ML BAG IV SCH ×3 (06:49→22:08)
[2023-06-19] MEDS: KETOROLAC 30 MG/ML VIAL IVP PRN ×3 (07:51→21:04)
[2023-06-19] MEDS: ENOXAPARIN 40 MG/0.4 ML SYRINGE SUBQ SCH (08:34)
[2023-06-19] MEDS: GABAPENTIN 300 MG CAPSULE PO SCH ×2 (08:34→20:47)
[2023-06-19] MEDS: FUROSEMIDE 40 MG/4 ML VIAL IVP SCH (08:34)
[2023-06-19] MEDS: FAMOTIDINE 20 MG/2 ML VIAL IVP SCH ×2 (08:34→20:47)
[2023-06-19] MEDS: levoFLOXacin 750 MG/150 ML 750 MG/150 ML BAG IV SCH (08:35)
[2023-06-19] MEDS: SODIUM CHLORIDE FLUSH 0.9% 10 ML SYRINGE IVP SCH ×3 (08:35→21:14)
[2023-06-19] MEDS: polyethylene glycoL 3350 17 GM PACKET PO SCH (08:35)
[2023-06-19] MEDS: DULoxetine 60 MG CAPSULE PO SCH (08:48)
--- NOTE | 2023-06-19 09:28 | PROVIDER PROGRESS NOTE ---
Progress Note June 19, 2023 9:20 PM She is the most alert I have seen her since I have met her this last Friday. Today is . She is appropriate, oriented to place and time and situation. Complains of arm edema and left leg edema. Aches all over but does not have any specific joint pain or chest pain or abdominal pain. Not eating very much. She is eating about 25% of her food. She says she does not have any appetite. Sometimes she gets nauseated. 2 days ago she was max assist just try to get up out of the bed. Today she is able to sit herself up with standby assist. She lives with her son and [id number]. She has caregivers that come 2 times a week. Her goal is to go home. Because of weakness we have been discussing whether she should go to a retirement facility. But there are very few retirement facilities to take patients on TPN. Active Medications Albuterol/Ipratropium (Ipratropium/Albuterol 3 Ml Neb) 3 ml INH Q4HR PRN PRN Reason: Wheezing Albuterol/Ipratropium (Ipratropium/Albuterol 3 Ml Neb) 3 ml INH RTQID [facility] Last Admin: 06/19/23 06:01 Dose: 3 ml Baclofen (Baclofen 10 Mg Tablet) 10 mg PO TID [facility] Last Admin: 06/19/23 06:08 Dose: 10 mg Budesonide (Budesonide 0.5 Mg/2 Ml Neb) 0.5 mg INH RTBID [facility] Last Admin: 06/19/23 06:01 Dose: 0.5 mg Duloxetine HCl (Duloxetine 60 Mg Capsule) 60 mg PO DAILY [facility] Last Admin: 06/19/23 08:48 Dose: 60 mg Enoxaparin Sodium (Enoxaparin 40 Mg/0.4 Ml Syringe) 40 mg SUBQ DAILY [facility] Last Admin: 06/19/23 08:34 Dose: 40 mg Famotidine (Famotidine 20 Mg/2 Ml Vial) 20 mg IVP BID [facility] Last Admin: 06/19/23 08:34 Dose: 20 mg Furosemide (Furosemide 40 Mg/4 Ml Vial) 40 mg IVP BID [facility] Last Admin: 06/19/23 08:34 Dose: 40 mg Gabapentin (Gabapentin 300 Mg Capsule) 300 mg PO BID [facility] Last Admin: 06/19/23 08:34 Dose: 300 mg Hydralazine HCl (Hydralazine Inj 20 Mg/Ml Vial) 10 mg IVP Q6H PRN PRN Reason: Hypertensive Emergency Last Admin: 06/13/23 22:30 Dose: 10 mg Hydroxyzine Pamoate (Hydroxyzine Pamoate 25 Mg Capsule) 100 mg PO TID PRN PRN Reason: Anxiety Last Admin: 06/18/23 19:10 Dose: 100 mg Metronidazole (Flagyl 500 Mg/100 Ml) 500 mg in 100 mls @ 100 mls/hr IV Q8H [facility] Last Infusion: 06/19/23 07:49 Dose: Infused Levofloxacin (Levaquin 750 Mg/150 Ml) 750 mg in 150 mls @ 100 mls/hr IV Q24H [facility] Last Admin: 06/19/23 08:35 Dose: 100 mls/hr Acetaminophen (Acetaminophen) 1,000 mg in 100 mls @ 400 mls/hr IV Q6HR PRN PRN Reason: Pain or Fever > 38C (100.4F) Last Admin: 06/19/23 00:22 Dose: 400 mls/hr Multivitamins 10 ml/ TRACE ELEMENTS 1 ml/ Amino Ac/Electrol/Dextrose/Calcium 2,011 mls @ 60 mls/hr IV 1900 [facility]; Protocol Last Admin: 06/18/23 19:39 Dose: 60 mls/hr Insulin Human Regular (Insulin Regular Human 300 Unit/3 Ml Vial) 1 - 9 unit SUBQ Q6HR MY; Protocol Last Admin: 06/19/23 06:08 Dose: Not Given Ketorolac Tromethamine (Ketorolac 30 Mg/Ml Vial) 30 mg IVP Q6HR PRN PRN Reason: Severe Pain (Level 7-10) Stop: 06/21/23 19:32 Last Admin: 06/19/23 07:51 Dose: 30 mg Lamotrigine (Lamotrigine 100 Mg Tablet) 400 mg PO HS [facility] Last Admin: 06/18/23 21:01 Dose: 400 mg Lorazepam (Lorazepam 0.5 Mg Tablet) 0.5 mg PO Q6H PRN PRN Reason: Anxiety Last Admin: 06/19/23 00:22 Dose: 0.5 mg Montelukast Sodium (Montelukast 10 Mg Tablet) 10 mg PO QPM [facility] Last Admin: 06/18/23 21:01 Dose: 10 mg Ondansetron HCl (Ondansetron 4 Mg/2 Ml Vial) 4 mg IVP Q6HR PRN PRN Reason: Nausea / Vomiting Last Admin: 06/17/23 15:24 Dose: 4 mg Patient Own Med ( Buprenorphine 7.5mcg /Hr Weekly Patch) 1 each TOP FR [facility] Last Admin: 06/13/23 20:38 Dose: Not Given Polyethylene Glycol (Polyethylene Glycol 3350 17 Gm Packet) 17 gm PO DAILY [facility] Last Admin: 06/19/23 08:35 Dose: Not Given Sodium Chloride (Sodium Chloride Flush 0.9% 10 Ml Syringe) 10 ml IVP 0100,0900,1700 [facility] Last Admin: 06/19/23 08:35 Dose: 10 ml Sodium Chloride (Sodium Chloride Flush 0.9% 10 Ml Syringe) 10 ml IVP PRN PRN PRN Reason: NEEDED PER PROVIDER ORDERS Last Admin: 06/19/23 07:51 Dose: 10 ml Home Meds: Albuterol Sulf [Ventolin Hfa Inhaler] 1 - 2 puffs IH PRN PRN 06/13/21 Baclofen [Lioresal] 1 tablet ORAL Q6H PRN 06/13/21 Cetirizine [ZyrTEC] 1 tab ORAL HS 06/13/21 Duloxetine HCl [Cymbalta] 60 mg PO DAILY 06/13/21 Montelukast [Singulair] 1 tab ORAL DAILY 06/13/21 lamoTRIgine [Lamictal] 2 tablet PO HS 06/13/21 traMADol [Ultram] 1 tablet ORAL PRN PRN 06/13/21 Gabapentin [Neurontin] 300 mg ORAL TID 11/05/22 Meloxicam, Submicronized [Meloxicam] 15 mg PO DAILY 11/06/22 Atomoxetine HCl [Strattera] 80 mg PO DAILY 06/13/23 Biotin/Lutein [Biotin Plus 5,000 Mcg Tablet] 2 each PO DAILY 06/13/23 Buprenorphine 1 each TD FR 06/13/23 Cholecalciferol (Vitamin D3) [Vitamin D3] 125 mcg PO DAILY 06/13/23 Fluticasone Propion/Salmeterol [Wixela 250-50 Inhub] 1 puffs PO BID 06/13/23 Hydrocodone/Acetaminophen [Hydrocodone-Acetamin 5-300 mg] 2 each PO Q6H PRN 06/13/23 Vitamin K2 [Mk-7] 90 mcg PO DAILY 06/13/23 hydrOXYzine HCL [Hydroxyzine HCl] 100 mg PO TID PRN 06/13/23 Exam: Temperature is 36.9, heart rate 83, blood pressure 108/58. She was consis tently in the 140s and 150s. Starting yesterday she went down to 119, 112. This morning she is 107/62, 108/58. She is on Lasix and hydralazine. O2 sat is in 85% on 2 L. 91% on 3 L. Yesterday she was consistently on 2 L and doing well. Alert and oriented pleasant white female, who is a dentulous. She has an abrasion on her left cheek that is new. She cannot remember where she got it. Neck is supple, no JVD Lungs have diminished breath sounds at the bases but otherwise clear and she does not have any respiratory distress. There are no crackles, rhonchi or wheezing. However she is easily tachypneic with trying to get up out of bed and repositioning herself. Weak cough. Nonproductive. Still on 2 or 3 L nasal cannula. Regular rate and rhythm Abdomen is soft, nontender, hypoactive bowel sounds. Urine output was 2350 cc yesterday. Last BM was yesterday. She has a Newsome catheter in place. Extremities have mild edema that is diffuse of the right arm, not painful. Able to flex and extend at the elbow. The left leg has trace edema around the ankles and calves. The right stump developed a crack yesterday and now has a bandage. But there is no redness, heat, cellulitis. Neurologically she is alert and oriented person place and time. Does not move her right arm because of rotator cuff tear right arm. Assessment/Plan - Problem List (1) Acute respiratory failure with hypoxia Impression: At presentation patient had severe respiratory distress, wheezing, found to have bilateral pneumonia and pulm edema, as the causes She was admitted to the ICU, needed high levels of supplemental O2, needed to be intubated electively the night of adm, and was placed on the vent. IV sedatives started. She was on the vent for 3 days and extubated after CPAP trial 06/16. Nursing reports that when she gets anxious, she starts to hyperventilate, and drop her sats. When she is asleep she is great. But when she wakes up, starts becoming emotionally upset, and they are asking if I could give some Ativan. I added Ativan June 17 and that seems to be working. No further episodes of tachypnea or panic attacks. Her oxygen requirements did come down. She was on 6 L after extubation. By the morning of June 18 she was 3 L. By that afternoon she was 2 L. This morning she is back up to 3 L with slightly worsening O2 sats. This is in spite of adequate urine output so I think fluid overload should not be consideration. There is no fever or chills or new cough. Plan: Continue to treat her pneumonia and asthma exacerbation with antibiotics, steroids. I am worried about the slightly worse need for oxygen and will get a chest x-ray today (2) Pneumonia Conclusion/Plan: Patient had bilateral pneumonia on chest x-ray This may be a CAP, or aspiration PNA, since she gets only clear liquid diet because of stomach surgery. Due to a penicillin allergy she did not get Ceftriaxone (plus Zithromax) in the ER. She was started on Levaquin.Today's day #6. The CXR done 06/17 showed improved but not yet absent infiltrate. White cell count started at 3.5 on admission. She peaked at 18.2 on the . 06/17 she went to normal at 6.4>>7.7 and lab results pending for today. Between extubation and today, white cell count is coming down, she is improving. Respiratory status has remained stable since extubation yesterday. . Blood cultures have grown haemophilus influenza. Treatment for illness that is not meningitis related is usually amoxicillin with clavulanic acid or cephalosporin or ampicillin/amoxicillin. She is not on these drugs because of penicillin allergy. Alternative regimens can be quinolone such as Levaquin and she has responded to that. Duration of therapy should be 5 to 7 days and she can be switched to p.o. therapy when clinically improved and able to take oral medications. Antibiotics can be stopped after 5 days if they are not hypoxic. But she is hypoxic. Plan: Spt culture ordered and I will review once available. Still not available today. It has not been collected. Continue with empiric iv Levaquin treatment for 7 days and empiric iv Flagyl as well to cover oral anaerobic bacteria. With decreasing oxygen requirements, and a normal white cell count, she Appear to be improving yesterday. Has slight increase in oxygen need today. However the rest of her physical exam is unremarkable. And she feels comfortable. She will complete antibiotic therapy tomorrow. She seems to be improving in strength and ability to be mobile. PT will see her today. (3) Asthma exacerbation Conclusion/Plan: The patient has known asthma, uses Montelukast and inhalers but no steroids, no nebulizers, no home O2 Plan: Off steroids this morning. No wheezing on lung exam Continue with DuoNebs scheduled and every 4 hours as needed Continue with Pulmicort twice daily Give Montelukast per ng or po (4) New onset of congestive heart failure Conclusion/Plan: Adm chest x-ray read as having pulmonary edema. BNP very elevated at 1245 The computer read her EKG is having A-fib. Admitting hospitalist does not agree and her interpretation of EKG : She has P waves and she was in MAT (which is frequently seen with pulmonary disease). 2 sets of troponins were normal. 06/16 CXR showed resolution of pulm edema . Intravenous maintenance fluids have been discontinued. TPN has been resumed.Telemetry discontinued. 06/17 Echocardiogram had overall left ventricular systolic function at the lower limits of normal with an ejection fraction of 50 to 55%. Right ventricular systolic function was normal. Mildly abnormal right heart pressures. RVSP at rest was 39 mmHg. No significant cardiac valvular heart disease was noted. She appears to have heart failure with preserved ejection fraction. My suspicion is that of fluid overload in the face of aggressive fluid resuscitation with infection. Fluid balance has been negative since June 14 on a daily basis. Weight on admission was 71.5. She went to 65 kg on June 17. 67 kg yesterday and 67 kg today. Plan: (5) History of gastric surgery Conclusion/Plan: Nutrition services states that the patient had severe gastroparesis and that resulted in the gastrectomy at age 35. She is only able to tolerate clear liquids at times. Also had malabsorption and refeeding syndrome so she now gets TPN supplements via a port in chest, due to chronic weight loss. Plan: Continue TPN, abd resume her clear liquid diet after extubation We are going to decrease her TPN to half of what it usually is because of her elevated liver enzymes. (6) On total parenteral nutrition (TPN) Conclusion/Plan: As per Hx. She has a Gutierrez port.Has elevated LFTs that I attribute to TPN. Plan: Reduce rate of TPN to see if that will help with reducing her liver enzymes. 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 Right now no evidence of infection. She is on empiric antibiotics for haemophilus. Levaquin should cover skin. (8) Chronic pain after spinal surgery Conclusion/Plan: Per records, in 11/16, she presented to our ER for LBP and found to have L4 and L5 vertebral body erosion with inflammatory changes consistent with discitis/osteomyelitis. She was transferred out. She got a discectomy and a prolonged course of antibiotics. I suspect chronic pain is why she is now on Buprenorphine, gabapentin, tramadol, Lamictal and Strattera She was on IV fentanyl drip for sedation which will also treat chronic pain. Plan: Her previously resumed medications were Lamictal, buprenorphine patch, and I resumed the Cymbalta, hydrocodone, hydroxyzine, baclofen, gabapentin. PT and OT will see her again today. (9) Sepsis Conclusion/Plan: Resolved The patient met criteria for sepsis: Lactic acid >2, WBC < 4K, Bands > 10%, respiratory rate very elevated, MAP less than 65, and her pulm status was the cause.
--- NOTE | 2023-06-19 09:55 | XRAY Report ---
PROCEDURE: Chest 1 View X-Ray INDICATIONS: worsenig hypoxia TECHNIQUE: One view of the chest was acquired. COMPARISON: 06/16/2023. FINDINGS: Surgical changes and devices: Right-sided central venous catheter tip is in SVC. Surgical clips are again noted in right lateral chest wall and in right axilla. Lungs and pleura: No pleural effusions or pneumothorax. There is interval significant improvement in bilateral lung aeration. Residual small patchy airspace opacities are noted in bilateral lung sanchez worse on the left side. Mediastinum: Mediastinal contours appear normal. Heart size is normal. Bones and chest wall: No suspicious bony lesions. Overlying soft tissues appear unremarkable. IMPRESSION: Interval improvement in bilateral lung aeration with small residual bilateral pulmonary infiltrates. No pleural effusion or pneumothorax. Reviewed by: Duane Peña MD on 06/19/2023 9:54 AM PST Approved by: Duane Peña MD on 06/19/2023 9:54 AM [facility] Station ID: [id number]
[2023-06-19] MEDS: ONDANSETRON 4 MG/2 ML VIAL IVP PRN (10:29)
--- NOTE | 2023-06-19 11:03 | Ultrasound Report ---
PROCEDURE: Duplex Ext Veins Right INDICATIONS: right arm diffuse edema TECHNIQUE: Real-time imaging, as well as color and pulse Doppler interrogation, were performed of the right uppe r extremity deep veins. COMPARISON: None. FINDINGS: The deep veins are normally compressible, and free of intraluminal thrombus. Color and pu lse Doppler demonstrate normal phasic intraluminal flow. There is normal augmentation response to di stal compression maneuver. IMPRESSION: No deep venous thrombosis of the visualized right upper extremity. Reviewed by: Duane Peña MD on 06/19/2023 11:01 AM PST Approved by: Duane Peña MD on 06/19/2023 11:01 AM PST Station ID: [id number]
[2023-06-19 11:15] LABS: BASOPHILS % (AUTO) 0.8 %; EOSINOPHILS % (AUTO) 0.6 %; HCT - HEMATOCRIT 35.2 % (37.0-47.0); HGB - HEMOGLOBIN 11.3 g/dL (12.0-16.0); LYMPHOCYTES % (AUTO) 10.4 %; MEAN CORPUSCULAR HGB CONC 32.1 g/dL (32.0-36.0); MEAN CORPUSCULAR VOLUME 84.2 fL (81.0-99.0); MEAN PLATELET VOLUME 11.6 fL (7.9-10.8); MONOCYTES % (AUTO) 1.6 %; NEUTROPHILS % (AUTO) 79.4 %; PLT - PLATELET COUNT 193 10^3/uL (130-450); RED BLOOD COUNT 4.18 10^6/uL (4.20-5.40); RED CELL DISTRIBUTION WIDTH 14.6 % (12.0-15.0); WHITE BLOOD COUNT 11.3 x10^3/uL (4.8-10.8)
[2023-06-19 11:39] LABS: SLIDE REVIEW? Indicated
[2023-06-19 11:40] LABS: ABNORMAL LYMPHS % (MANUAL) 0 %
[2023-06-19 11:52] LABS: CALCIUM 8.1 mg/dL (8.5-10.3); CREATININE 0.7 mg/dL (0.6-1.3); POTASSIUM 3.4 mmol/L (3.5-4.5)
[2023-06-19 12:12] LABS: BAND NEUTROPHILS % (MANUAL) 6 %; EOSINOPHILS # (MANUAL) 0.1 10^3/uL (0-0.7); LYMPHOCYTES # (MANUAL) 0.9 10^3/uL (1.5-3.5); LYMPHOCYTES % (MANUAL) 8 %; METAMYELOCYTES % (MANUAL) 3 %; MONOCYTES # (MANUAL) 0.3 10^3/uL (0.0-1.0); MYELOCYTES % (MANUAL) 1 %; NEUTROPHILS # (MANUAL) 9.5 10^3/uL (1.5-6.6)
[2023-06-19 12:16] LABS: PLATELET ESTIMATE, MANUAL NORMAL (130-450,000) (NORMAL); PLATELET MORPHOLOGY NORMAL APPEARANCE (NORMAL); RBC MORPHOLOGY (MULTIPLE) 1+ HYPOCHROMASIA (NORMAL); WBC MORPHOLOGY (MULTIPLE) NORMAL APPEARANCE (NORMAL)
[2023-06-19 12:17] LABS: DIFFERENTIAL COMMENT MANUAL DIFFERENTIAL
[2023-06-19] MEDS ORDERED: POTASSIUM CHLORIDE 20 MEQ TABLET PO ONE (15:32)
[2023-06-19] MEDS: TPN (CLINIMIX E 5/15) 2,000 ML with MULTIVITAMIN 10 ML, TRACE ELEMENTS 1 ML IV SCH ×3 (19:36)
[2023-06-19] MEDS: lamoTRIgine 100 MG TABLET PO SCH (20:46)
[2023-06-19] MEDS: MONTELUKAST 10 MG TABLET PO SCH (20:46)
[2023-06-19] MEDS: hydrOXYzine PAMOATE 25 MG CAPSULE PO PRN (21:04)
[2023-06-20] MEDS: INSULIN REGULAR HUMAN 300 UNIT/3 ML VIAL SUBQ SCH ×4 (00:29→18:57)
[2023-06-20 05:41] LABS: BASOPHILS % (AUTO) 0.4 %; EOSINOPHILS % (AUTO) 1.5 %; HCT - HEMATOCRIT 30.6 % (37.0-47.0); HGB - HEMOGLOBIN 9.6 g/dL (12.0-16.0); LYMPHOCYTES % (AUTO) 13.2 %; MEAN CORPUSCULAR HEMOGLOBIN 27.8 pg (27.0-31.0); MEAN CORPUSCULAR HGB CONC 31.4 g/dL (32.0-36.0); MEAN CORPUSCULAR VOLUME 88.7 fL (81.0-99.0); MEAN PLATELET VOLUME 11.8 fL (7.9-10.8); MONOCYTES % (AUTO) 2.9 %; NEUTROPHILS % (AUTO) 74.1 %; PLT - PLATELET COUNT 181 10^3/uL (130-450); RED BLOOD COUNT 3.45 10^6/uL (4.20-5.40); WHITE BLOOD COUNT 7.2 x10^3/uL (4.8-10.8)
[2023-06-20 06:13] LABS: ABNORMAL LYMPHS % (MANUAL) 0 %
[2023-06-20 06:49] LABS: BAND NEUTROPHILS % (MANUAL) 8 %; DIFFERENTIAL COMMENT MANUAL DIFFERENTIAL; LYMPHOCYTES # (MANUAL) 0.9 10^3/uL (1.5-3.5); LYMPHOCYTES % (MANUAL) 13 %; METAMYELOCYTES % (MANUAL) 2 %; MONOCYTES # (MANUAL) 0.2 10^3/uL (0.0-1.0); MYELOCYTES % (MANUAL) 3 %; NEUTROPHILS # (MANUAL) 5.7 10^3/uL (1.5-6.6); PLATELET ESTIMATE, MANUAL NORMAL (130-450,000) (NORMAL); RBC MORPHOLOGY (MULTIPLE) NORMAL APPEARANCE (NORMAL)
[2023-06-20] MEDS: IPRATROPIUM/ALBUTEROL 3 ML NEB INH SCH ×4 (07:00→19:37)
[2023-06-20] MEDS: metroNIDAZOLE 500 MG/100 ML 500 MG/100 ML BAG IV SCH (07:59)
[2023-06-20] MEDS: BACLOFEN 10 MG TABLET PO SCH ×3 (07:59→21:22)
[2023-06-20] MEDS: SODIUM CHLORIDE FLUSH 0.9% 10 ML SYRINGE IVP SCH ×2 (08:47→15:51)
[2023-06-20] MEDS: POTASSIUM CHLORIDE 20 MEQ TABLET PO SCH (08:47)
[2023-06-20] MEDS: GABAPENTIN 300 MG CAPSULE PO SCH ×2 (08:47→21:22)
[2023-06-20] MEDS: ENOXAPARIN 40 MG/0.4 ML SYRINGE SUBQ SCH (08:47)
[2023-06-20] MEDS: DULoxetine 60 MG CAPSULE PO SCH (08:47)
[2023-06-20] MEDS: FAMOTIDINE 20 MG/2 ML VIAL IVP SCH (08:47)
[2023-06-20 09:21] LABS: ALBUMIN 2.7 g/dL (3.2-5.5); ALBUMIN/GLOBULIN RATIO 1.2 (1.0-2.2); BILIRUBIN,TOTAL 0.6 mg/dL (0.2-1.0); CALCIUM 8.2 mg/dL (8.5-10.3); CREATININE 0.6 mg/dL (0.6-1.3); TOTAL PROTEIN 4.9 g/dL (6.4-8.9)
[2023-06-20] MEDS ORDERED: ALTEPLASE 2 MG VIAL IJ ONE (09:28)
[2023-06-20] MEDS: polyethylene glycoL 3350 17 GM PACKET PO SCH (10:13)
[2023-06-20] MEDS: KETOROLAC 30 MG/ML VIAL IVP PRN ×2 (10:14→15:50)
[2023-06-20] MEDS: BUDESONIDE 0.5 MG/2 ML NEB INH SCH ×2 (10:15→19:36)
[2023-06-20] MEDS: levoFLOXacin 750 MG/150 ML 750 MG/150 ML BAG IV SCH (10:25)
[2023-06-20] MEDS: BUPRENORPHINE 7.5 MCG/HR TOP SCH (14:08)
--- NOTE | 2023-06-20 15:14 | PROVIDER PROGRESS NOTE ---
Progress Note June 20 3:45 PM Cheerful. No complaints. Just wants to go home. Physical therapy has been cautious about that desire because she she still cannot sit for more than 5 minutes at a time. They are recommending [facility] facility placement. But she really does not want to go there and she and her family have talked about it. The decision made on their part today is for her to go to home with home health. She lives with her son and he is willing to help take care of her. We have decreased her TPN because of liver function study abnormalities. Those were started to come down. Complaints consist of diffuse arthralgias. She just aches in a small way all over her body. Nothing severe. Right at this moment anyway. Sometimes she goes up to an 8. No rhyme or reason about why it does not. Denies cough, chest pain, shortness of breath Active Medications Acetaminophen (Acetaminophen 500 Mg Tablet) 1,000 mg PO Q6H PRN PRN Reason: Pain or Fever > 38C (100.4F) Last Admin: 06/20/23 15:50 Dose: 1,000 mg Albuterol/Ipratropium (Ipratropium/Albuterol 3 Ml Neb) 3 ml INH Q4HR PRN PRN Reason: Wheezing Albuterol/Ipratropium (Ipratropium/Albuterol 3 Ml Neb) 3 ml INH RTQID [facility] Last Admin: 06/20/23 15:14 Dose: 3 ml Baclofen (Baclofen 10 Mg Tablet) 10 mg PO TID [facility] Last Admin: 06/20/23 14:08 Dose: 10 mg Budesonide (Budesonide 0.5 Mg/2 Ml Neb) 0.5 mg INH RTBID [facility] Last Admin: 06/20/23 10:15 Dose: 0.5 mg Duloxetine HCl (Duloxetine 60 Mg Capsule) 60 mg PO DAILY [facility] Last Admin: 06/20/23 08:47 Dose: 60 mg Enoxaparin Sodium (Enoxaparin 40 Mg/0.4 Ml Syringe) 40 mg SUBQ DAILY [facility] Last Admin: 06/20/23 08:47 Dose: 40 mg Famotidine (Famotidine 20 Mg Tablet) 20 mg PO BID [facility] Gabapentin (Gabapentin 300 Mg Capsule) 300 mg PO BID [facility] Last Admin: 06/20/23 08:47 Dose: 300 mg Hydralazine HCl (Hydralazine Inj 20 Mg/Ml Vial) 10 mg IVP Q6H PRN PRN Reason: Hypertensive Emergency Last Admin: 06/13/23 22:30 Dose: 10 mg Hydroxyzine Pamoate (Hydroxyzine Pamoate 25 Mg Capsule) 100 mg PO TID PRN PRN Reason: Anxiety Last Admin: 06/19/23 21:04 Dose: 100 mg Multivitamins 10 ml/ TRACE ELEMENTS 1 ml/ Amino Ac/Electrol/Dextrose/Calcium 2,011 mls @ 75 mls/hr IV 1900 [facility]; Protocol Fat Emulsion Intravenous (Intralipid 20%) 250 mls @ 21 mls/hr IV 1900 [facility] Insulin Human Regular (Insulin Regular Human 300 Unit/3 Ml Vial) 1 - 9 unit SUBQ Q6HR [facility]; Protocol Last Admin: 06/20/23 12:15 Dose: 3 unit Ketorolac Tromethamine (Ketorolac 30 Mg/Ml Vial) 30 mg IVP Q6HR PRN PRN Reason: Severe Pain (Level 7-10) Stop: 06/21/23 19:32 Last Admin: 06/20/23 15:50 Dose: 30 mg Lamotrigine (Lamotrigine 100 Mg Tablet) 400 mg PO HS [facility] Last Admin: 06/19/23 20:46 Dose: 400 mg Lorazepam (Lorazepam 0.5 Mg Tablet) 0.5 mg PO Q6H PRN PRN Reason: Anxiety Last Admin: 06/20/23 15:50 Dose: 0.5 mg Montelukast Sodium (Montelukast 10 Mg Tablet) 10 mg PO QPM [facility] Last Admin: 06/19/23 20:46 Dose: 10 mg Ondansetron HCl (Ondansetron 4 Mg/2 Ml Vial) 4 mg IVP Q6HR PRN PRN Reason: Nausea / Vomiting Last Admin: 06/19/23 10:29 Dose: 4 mg Patient Own Med ( Buprenorphine 7.5mcg /Hr Weekly Patch) 1 each TOP FR [facility] Last Admin: 06/20/23 14:08 Dose: 1 each Polyethylene Glycol (Polyethylene Glycol 3350 17 Gm Packet) 17 gm PO DAILY [facility] Last Admin: 06/20/23 10:13 Dose: Not Given Potassium Chloride (Potassium Chloride 20 Meq Tablet) 20 meq PO DAILYWM [facility] Last Admin: 06/20/23 08:47 Dose: 20 meq Sodium Chloride (Sodium Chloride Flush 0.9% 10 Ml Syringe) 10 ml IVP 0100,0900,1700 MY Last Admin: 06/20/23 15:51 Dose: 10 ml Sodium Chloride (Sodium Chloride Flush 0.9% 10 Ml Syringe) 10 ml IVP PRN PRN PRN Reason: NEEDED PER PROVIDER ORDERS Last Admin: 06/19/23 14:10 Dose: 10 ml Albuterol Sulf [Ventolin Hfa Inhaler] 1 - 2 puffs IH PRN PRN 06/13/21 Baclofen [Lioresal] 1 tablet ORAL Q6H PRN 06/13/21 Cetirizine [ZyrTEC] 1 tab ORAL HS 06/13/21 Duloxetine HCl [Cymbalta] 60 mg PO DAILY 06/13/21 Montelukast [Singulair] 1 tab ORAL DAILY 06/13/21 lamoTRIgine [Lamictal] 2 tablet PO HS 06/13/21 traMADol [Ultram] 1 tablet ORAL PRN PRN 06/13/21 Gabapentin [Neurontin] 300 mg ORAL TID 11/05/22 Meloxicam, Submicronized [Meloxicam] 15 mg PO DAILY 11/06/22 Atomoxetine HCl [Strattera] 80 mg PO DAILY 06/13/23 Biotin/Lutein [Biotin Plus 5,000 Mcg Tablet] 2 each PO DAILY 06/13/23 Buprenorphine 1 each TD FR 06/13/23 Cholecalciferol (Vitamin D3) [Vitamin D3] 125 mcg PO DAILY 06/13/23 Fluticasone Propion/Salmeterol [Wixela 250-50 Inhub] 1 puffs PO BID 06/13/23 Hydrocodone/Acetaminophen [Hydrocodone-Acetamin 5-300 mg] 2 each PO Q6H PRN 06/13/23 Vitamin K2 [Mk-7] 90 mcg PO DAILY 06/13/23 hydrOXYzine HCL [Hydroxyzine HCl] 100 mg PO TID PRN 06/13/23 Exam: Temperature is 37.0, heart rate 79, respirations 18, 2 L nasal cannula results and 100% O2 sat. An alert oriented white female who looks older than stated age. It may be bec ause she has no teeth. She is 5 feet 4 inches tall, 66.5 kg. Comfortable, no distress. Supple neck Clear lungs without increased respiratory effort Regular rate and rhythm Abdomen is soft, nontender, normal bowel sounds. Last bowel movement was yesterday. Newsome catheter is draining clear yellow urine. Right BKA has a stable small dehiscence of the right stump. There is no heat, drainage. Just a small pink area that is very faintly pink where the wound has come apart. Slight edema of the left leg. Slight edema of the right arm. Yesterday's ultrasound was negative for DVT. No focal deficit. She cannot move her right arm because of previous right right rotator cuff tear but she moves the stump leg, left leg, left arm without any deficits. Laboratory Tests 06/20/23 06/20/23 06/20/23 05:30 08:58 08:58 WBC 7.2 Hgb 9.6 L Hct 30.6 L MCV 88.7 Plt Count 181 Sodium 135 Potassium 4.0 Chloride 99 L Anion Gap 4.0 L BUN 24 H Creatinine 0.6 Estimated GFR (MDRD) 106 Glucose 141 H POC Whole Bld Glucose Calcium 8.2 L Total Bilirubin 0.6 AST 22 ALT 121 H Alkaline Phosphatase 87 Triglycerides 317 06/20/23 11:41 WBC Hgb Hct MCV Plt Count Sodium Potassium Chloride Anion Gap BUN Creatinine Estimated GFR (MDRD) Glucose POC Whole Bld Glucose 197 H Calcium Total Bilirubin AST ALT Alkaline Phosphatase Triglycerides Assessment/Plan - Problem List (1) Acute respiratory failure with hypoxia Impression: She still has an ongoing need for 2 L nasal cannula to maintain O2 sats. At presentation patient had severe respiratory distress, wheezing, found to have bilateral pneumonia and pulm edema, as the causes She was admitted to the ICU, needed high levels of supplemental O2, needed to be intubated electively the night of adm, and was placed on the vent. IV sedatives started. She was on the vent for 3 days and extubated after CPAP trial 06/16. Nursing reports that when she gets anxious, she starts to hyperventilate, and drop her sats. When she is asleep she is great. But when she wakes up, starts becoming emotionally upset, and they are asking if I could give some Ativan. I added Ativan June 17 and that seems to be working. No further episodes of tachypnea or panic attacks. Her oxygen requirements did come down. She was on 6 L after extubation. By the morning of June 18 she was 3 L. By that afternoon she was 2 L. Yesterday morning, on June 19 she appeared to have slight increased need for oxygen at 3 L nasal cannula. Was complaining of a slight increased cough. I repeated her chest x-ray and she has interval improvement of bilateral lung aeration with small residual bilateral pulmonary infiltrates. No pleural effusion or pneumothorax. She was also complaining of right arm edema. My fear was DVT but venous Doppler was negative for DVT. Today she is back down to 2 L nasal cannula. She is usually on room air. Plan: She completes treatment for pneumonia today. Antibiotics have been stopped. Encourage incentive spirometry, and getting out of bed (2) Hemophilus Pneumonia Conclusion/Plan: Patient had bilateral pneumonia on chest x-ray This may be a CAP, or aspiration PNA, since she gets only clear liquid diet because of stomach surgery. Due to a penicillin allergy she did not get Ceftriaxone (plus Zithromax) in the ER. She was started on Levaquin.Today's day #7 and she completes therapy today.Follow-up chest x-rays have showed improved infiltrate. Her white cell count peaked at 18.2 thousand and became normal June 16 at 6.4. Sputum cultures grew out haemophilus. We could not treat her with the usual treatment because she is allergic to penicillin an alternative such as quinolone are recommended and she has responded to that. Duration of therapy should have been 5 to 7 days and she could be switched to oral. However I have decided to stop it 7 days, and not 5, because she still continues to be hypoxic. (3) Asthma exacerbation Conclusion/Plan: The patient has known asthma, uses Montelukast and inhalers but no steroids, no nebulizers, no home O2 Plan: Off steroids since 06/19. No wheezing on lung exam Continue with DuoNebs scheduled and every 4 hours as needed Continue with Pulmicort twice daily Give Montelukast per ng or po (4) New onset of congestive heart failure, resolved. Conclusion/Plan: Adm chest x-ray read as having pulmonary edema. BNP very elevated at 1245 The computer read her EKG is having A-fib. Admitting hospitalist does not agree and her interpretation of EKG : She has P waves and she was in MAT (which is frequently seen with pulmonary disease). 2 sets of troponins were normal. 06/16 CXR showed resolution of pulm edema . Intravenous maintenance fluids have been discontinued. TPN has been resumed.Telemetry discontinued. 06/17 Echocardiogram had overall left ventricular systolic function at the lower limits of normal with an ejection fraction of 50 to 55%. Right ventricular systolic function was normal. Mildly abnormal right heart pressures. RVSP at rest was 39 mmHg. No significant cardiac valvular heart disease was noted. She appears to have heart failure with preserved ejection fraction. My suspicion is that of fluid overload in the face of aggressive fluid resuscitati on with infection. Fluid balance has been negative since June 14 on a daily basis. Weight on admission was 71.5. She went to 65 kg on June 17. 67 kg for the last 2 days and she is 66.5 kg today.Lasix 40 mg IV push was given until yesterday. Plan: Hold off on further Lasix. Want to see if she is reaching euvolemic status. I am resuming her TPN at full strength. Most likely she will be discharged tomorrow and I will need to let her primary care provider know to watch her water weight gain. (5) History of gastric surgery Conclusion/Plan: Nutrition services states that the patient had severe gastroparesis and that resulted in the gastrectomy at age 35. She is only able to tolerate clear liquids at times. Also had malabsorption and refeeding syndrome so she now gets TPN supplements via a port in chest, due to chronic weight loss. I had resumed clear liquids after extubation. And yesterday, in the afternoon, she back me for solid food. She states that she eats bananas and macaroni and cheese at home without any difficulty. She says that very rarely she will have emesis. So I started feeding her mechanical soft diet yesterday and she is tolerating it well. I am also going back up on the TPN rate to the normal rate because LFTs are now normal. (6) On total parenteral nutrition (TPN) Conclusion/Plan: As per Hx. She has a Gutierrez port.Has elevated LFTs that I attribute to TPN.LFTs are now down. Resume normal TPN. 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 Right now no evidence of infection. She was on empiric therapy for haemophilus influenza in the form of Levaquin. Levaquin should cover any soft tissue infection she may have had. (8) Chronic pain after spinal surgery Conclusion/Plan: Per records, in 11/16, she presented to our ER for LBP and found to have L4 and L5 vertebral body erosion with inflammatory changes consistent with discitis/osteomyelitis. She was transferred out. She got a discectomy and a prolonged course of antibiotics. I suspect chronic pain is why she is now on Buprenorphine, gabapentin, tramadol, Lamictal and Strattera She was on IV fentanyl drip for sedation which will also treat chronic pain. Plan: Her previously resumed medications were Lamictal, buprenorphine patch, and I resumed the Cymbalta, hydrocodone, hydroxyzine, baclofen, gabapentin. PT and OT have been seeing her. They do recommend fdc facility. Again she prefers to go home. She keeps on saying that pain is an 8 out of a 10. But I am not can to be increasing her usual home meds. (9) Sepsis Conclusion/Plan: Resolved The patient met criteria for sepsis: Lactic acid >2, WBC < 4K, Bands > 10%, respiratory rate very elevated, MAP less than 65, and her pulm status was the cause.
[2023-06-20] MEDS: ACETAMINOPHEN 500 MG TABLET PO PRN (15:50)
[2023-06-20] MEDS: LORazepam 0.5 MG TABLET PO PRN (15:50)
[2023-06-20] MEDS ORDERED: TPN (CLINIMIX E 5/15) 2,000 ML with MULTIVITAMIN 10 ML, TRACE ELEMENTS 1 ML IV SCH ×3 (19:00)
[2023-06-20] MEDS ORDERED: FAT EMULSION 20% 250 ML IV SCH (19:00)
[2023-06-20] MEDS: FAMOTIDINE 20 MG TABLET PO SCH (21:22)
[2023-06-20] MEDS: lamoTRIgine 100 MG TABLET PO SCH (21:22)
[2023-06-20] MEDS: MONTELUKAST 10 MG TABLET PO SCH (21:22)
[2023-06-21 00:37] VITALS: O2SAT 95
[2023-06-21] MEDS: SODIUM CHLORIDE FLUSH 0.9% 10 ML SYRINGE IVP SCH ×2 (00:58→08:28)
[2023-06-21] MEDS: SODIUM CHLORIDE FLUSH 0.9% 10 ML SYRINGE IVP PRN (01:05)
[2023-06-21] MEDS: KETOROLAC 30 MG/ML VIAL IVP PRN ×2 (01:05→12:17)
[2023-06-21] MEDS: ACETAMINOPHEN 500 MG TABLET PO PRN (05:06)
[2023-06-21] MEDS: GABAPENTIN 300 MG CAPSULE PO SCH (05:48)
[2023-06-21] MEDS: BACLOFEN 10 MG TABLET PO SCH (05:48)
[2023-06-21] MEDS: INSULIN REGULAR HUMAN 300 UNIT/3 ML VIAL SUBQ SCH ×3 (05:49→13:39)
[2023-06-21] MEDS: BUDESONIDE 0.5 MG/2 ML NEB INH SCH (07:15)
[2023-06-21] MEDS: IPRATROPIUM/ALBUTEROL 3 ML NEB INH SCH ×2 (07:16→11:20)
[2023-06-21 08:17] VITALS: BP 135/69
[2023-06-21] MEDS: FAMOTIDINE 20 MG TABLET PO SCH (08:27)
[2023-06-21] MEDS: DULoxetine 60 MG CAPSULE PO SCH (08:27)
[2023-06-21] MEDS: POTASSIUM CHLORIDE 20 MEQ TABLET PO SCH (08:27)
[2023-06-21] MEDS: polyethylene glycoL 3350 17 GM PACKET PO SCH (08:28)
[2023-06-21] MEDS: ENOXAPARIN 40 MG/0.4 ML SYRINGE SUBQ SCH (08:28)
--- NOTE | 2023-06-21 10:34 | Discharge Plan ---
Discharge Plan Problem Reviewed?: Yes Disposition: Home Health Service Condition: Stable Diet: Soft Activity Restrictions: Activity as Tolerated Shower Restrictions: No Driving Restrictions: Yes (no driving) Assistance Devices: Wheelchair, Walker Health Concerns: You are a person who lives in her own apartment and have a below the right knee amputation with prothesis. You have caregivers that come 2 times a week to help you with your shoulder, and 1 day a week to help you with your right below the knee amputation therapy. You are on chronic total parenteral nutrition because you have had a stomach resection that does not allow you to eat a normal amount of food. You had developed shortness of breath and cough for 4 days and were getting worse and worse. You finally had to call an ambulance and when the ambulance got there you had a severely low oxygen level. When you were brought to the emergency room we identified you as having pneumonia and congestive heart failure. You had to be placed in the intensive care unit on a specialized mask to be able to deliver oxygen to you. You were started on intravenous antibiotics. And we evaluated your heart to make sure that the heart muscle pump was still working. The echocardiogram which estimates how good your heart is pumping is nearly normal. The left side of your heart has a normal muscle pump function at 50 to 55% ejection. Your right heart muscle is normal. However you appear to have some slight lung high blood pressure. This may have been induced by the pneumonia we found you to have. The bacteria that grew out of your sputum in your lung as well as your blood cultures with haemophilus influenza. It is a bacteria that infect people who are immunocompromised, such as yourself. You were treated with antibiotics and did well. You have been without fever your entire hospitalization, and off oxygen since June 20. You are very weak. You can only sit about 5 minutes at a time before you have to lay down. We did wonder if we could put you in a half-way facility for physical rehab but no intermediate will take you since you are on TPN. You also feel like you can go home with the help of your son and your caregivers. As such you are being discharged to home. The only minor problem still left is addressing your stump in your right leg. The scar tissue has split a little bit. It is not infected but it needs to be watched carefully to make sure it does not get infected. Plan of Treatment: 1. Please see your primary care provider, Shaneka García, in the next 1 to 2 weeks 2. Please continue your 2 times a week physical therapy for your shoulder, and 1 time a week therapy for your leg. I know that you were nervous about getting your strength back but I really do think you can go back to a good baseline status where you are able to transfer from a chair to a walker, and walk, using your prosthesis, in your apartment. 3. Please make sure that your stump scar is looked at on a daily basis. 4. We are resuming your TPN. You also tell me that you do eat a soft mechanical diet at home as tolerated. Care Goals: To return to being able to ambulate with a walker and your prosthetic on your right below the knee amputation Assessment: Patient is alert, oriented, much much improved from her encephalopathy when I first met her. She is nervous about going home but feels safe and that she has her caregiver and her son Follow-Up Care: Home Health - RN, Home Health - PT, Home Health - OT No Smoking: If you smoke, Please STOP! Call for help. Follow-up with: Shaneka García MD [Primary Care Provider] -
--- NOTE | 2023-06-21 11:32 | DISCHARGE SUMMARY ---
"Discharge Summary Admit Date: 06/13/23 Discharge Date: 06/21/23 Discharging Provider: Suzette Louie MD Primary Care Provider: Shaneka García Code Status: Attempt Resuscitation Condition at Discharge: Stable Discharge Disposition: [facility] - DIAGNOSES Discharge Diagnoses with Status of Each Condition: 1. Sepsis 2. Haemophilus pneumonia 3. Acute respiratory failure with hypoxia 4. Asthma exacerbation 5. New onset congestive heart failure, resolved 6. Chronic pain after spinal surgery 7. Status post right BKA, with wound dehiscence 8. History of gastrectomy 9. On total parenteral nutrition 10. Acute generalized weakness after prolonged illness - HPI History of Present Illness: This is a 52-year-old female with a history of stomach cancer with resection, has a port, receives TPN and only takes liquids for a diet orally. She had a history of discitis requiring back surgery. There is a history of embolism to the leg and she is status post right BKA. She has a history of asthma and takes inhalers but not nebulizers or home O2 The patient came to the emergency room via ambulance this morning with complaints of 4 days of cough and shortness of breath. EMS found her with an O2 saturation of 70 to 80% on room air and in severe respiratory distress. She got 2 nebulizer treatments en route. She had 2 more nebulizered bronchodilator treatments given in the ER. There is continued wheezing. Her initial HR was 152. Her BP was 93/46 (MAP 61). She was administered 1.5 L saline and BP is 101. Her RR was 30. The patient had a blood gas done showing pH 7.23, PCO2 47, PO2 58 on 5 L O2 via mask. She had been now increased to oxygen 8 L supplemental with saturations of 90 to 95%. Her work-up shows that she has elevated BNP 1245, CXR shows bilateral infiltrates and cephalization of flow consistent with edema or ARDS. Respiratory PCR is negative. White blood count is depressed at 3.5 with 32% Bands. Lactic acid elevated at 3.3. The ER provider spoke to me about this patient. She will be admitted to the ICU on the Hospitalist service to treat acute respiratory failure with hypoxia, asthma exacerbation, new onset CHF, and bilateral pneumonia causing sepsis. Her CODE STATUS is Full Code. - Past Medical History Cardiovascular: reports: None Respiratory: reports: Asthma, Shortness of breath Neuro: reports: None Endocrine/Autoimmune: reports: None GI: reports: Other (stomach ?CA with resection/surgery. Poor PO intake. Gets TPN.) COMMAND AND CONTROL SPECIALIST: reports: None : reports: None HEENT: reports: Chronic hearing loss Psych: reports: Anxiety, Bipolar disorder Musculoskeletal: reports: Chronic back pain, Other (BKA) Derm: reports: None - Past Surgical History General: reports: Bowel surgery, Other (BKA) Ortho: reports: Spine surgery - CONSULTS | PROCEDURES Procedures: 1. Daily chest x-ray showing consolidative bilateral pulmonary radiopacities greater on the left than on the right. Suspicious for multifocal pneumonia. Possible early ARDS. As the chest x-rays were done sequentially, there was a gradual improvement in aeration and less consolidation. 2. Venous duplex right arm due to swelling showed no DVT 3. Blood cultures from June 13 positive for haemophilus influenza 4. Echocardiogram had overall left ventricular systolic function lower limits of normal with an ejection fraction of 50 to 55%. Right ventricle systolic function normal. Mildly abnormal right heart pressures. RVSP at rest 39 mmHg. No significant valvular heart disease noted. - HOSPITAL COURSE Hospital Course: (1) Acute respiratory failure with hypoxia Impression: She still has an ongoing need for 2 L nasal cannula to maintain O2 sats. At presentation patient had severe respiratory distress, wheezing, found to have bilateral pneumonia and pulm edema, as the causes She was admitted to the ICU, needed high levels of supplemental O2, needed to be intubated electively the night of adm, and was placed on the vent. IV sedatives started. She was on the vent for 3 days and extubated after CPAP trial 06/16. Nursing reports that when she gets anxious, she starts to hyperventilate, and drop her sats. When she is asleep she is great. But when she wakes up, starts becoming emotionally upset, and they are asking if I could give some Ativan. I added Ativan June 17 and that seems to be working. No further episodes of tachypnea or panic attacks. Her oxygen requirements did come down. She was on 6 L after extubation. By the morning of June 18 she was 3 L. By that afternoon she was 2 L. On June 19 she appeared to have slight increased need for oxygen at 3 L nasal cannula. Was complaining of a slight increased cough. I repeated her chest x-ray and she has interval improvement of bilateral lung aeration with small residual bilateral pulmonary infiltrates. No pleural effusion or pneumothorax. She was also complaining of right arm edema. My fear was DVT but venous Doppler was negative for DVT. She complete antibiotics the day before discharge. (2) Hemophilus Pneumonia Conclusion/Plan: Patient had bilateral pneumonia on chest x-ray This may be a CAP, or aspiration PNA, since she gets only clear liquid diet because of stomach surgery. Due to a penicillin allergy she did not get Ceftriaxone (plus Zithromax) in the ER. She was started on Levaquin.Today's day #7 and she completes therapy today.Follow-up chest x-rays have showed improved infiltrate. Her white cell count peaked at 18.2 thousand and became normal June 16 at 6.4. Sputum cul tures grew out haemophilus. We could not treat her with the usual treatment because she is allergic to penicillin an alternative such as quinolone are recommended and she has responded to that. Duration of therapy should have been 5 to 7 days and she could be switched to oral. [facility] completed 7 days due to the hypoxia. (3) Asthma exacerbation Conclusion/Plan: The patient has known asthma, uses Montelukast and inhalers but no steroids, no nebulizers, no home O2. In spite of PNA wheezing was not severe and notne at discharge. She did well with these. (4) New onset of congestive heart failure, resolved. Conclusion/Plan: Adm chest x-ray read as having pulmonary edema. BNP very elevated at 1245 The computer read her EKG is having A-fib. Admitting hospitalist does not agree and her interpretation of EKG : She has P waves and she was in MAT (which is frequently seen with pulmonary disease). 2 sets of troponins were normal. 06/16 CXR showed resolution of pulm edema . Intravenous maintenance fluids have been discontinued. TPN has been resumed.Telemetry discontinued. 06/17 Echocardiogram had overall left ventricular systolic function at the lower limits of normal with an ejection fraction of 50 to 55%. Right ventricular systolic function was normal. Mildly abnormal right heart pressures. RVSP at rest was 39 mmHg. No significant cardiac valvular heart disease was noted. She appears to have heart failure with preserved ejection fraction. My suspicion is that of fluid overload in the face of aggressive fluid resuscitation with infection. Fluid balance has been negative since June 14 on a daily basis. Weight on admission was 71.5. She went to 65 kg on June 17. 67 kg for the last 2 days and she is 66.5 kg today.Lasix 40 mg IV push was given 2 days before discharge. (5) History of gastric surgery Conclusion/Plan: Nutrition services states that the patient had severe gastroparesis and that resulted in the gastrectomy at age 35. She is only able to tolerate clear liquids at times. Also had malabsorption and refeeding syndrome so she now gets TPN supplements via a port in chest, due to chronic weight loss. I had resumed clear liquids after extubation. 2 days before discharge she asked for banana, rice, mashed potatoes. She states that she eats bananas and macaroni and cheese at home without any difficulty. She says that very rarely she will have emesis. So I started feeding her mechanical soft diet and she is tolerating it well. TPN was temporarily reduced to elevated LFTs. Once those came down, normal rate of TPN resumed. (6) On total parenteral nutrition (TPN) Conclusion/Plan: As per Hx. She has a Gutierrez port.Has elevated LFTs that I attribute to TPN. LFTs came down and I resumed normal TPN. Her home infusion program was notified the day before discharge. (7) R BKA: S88.111A Conclusion/Plan: I reviewed old [facility] records and found: She had right BKA in 01/16 secondary to necrotizing fasciitis Wound appears to be coming slightly split but Right now no evidence of infection. She was on empiric therapy for haemophilus influenza in the form of Levaquin. Levaquin should cover any soft tissue infection she may have had. (8) Chronic pain after spinal surgery Conclusion/Plan: Per records, in 11/16, she presented to our ER for LBP and found to have L4 and L5 vertebral body erosion with inflammatory changes consistent with discitis/osteomyelitis. She was transferred out. She got a discectomy and a prolonged course of antibiotics. I suspect chronic pain is why she is now on Buprenorphine, gabapentin, tramadol, Lamictal and Strattera She was on IV fentanyl drip for sedation which will also treat chronic pain. She was initially started back on Lamictal, buprenorphine patch, and I then resumed the Cymbalta, hydrocodone, hydroxyzine, baclofen, gabapentin. PT and OT worked with her. They do recommend jail facility. Again she prefers to go home. She keeps on saying that pain is an 8 out of a 10. But I am not can to be increasing her usual home meds for pain. (9) Sepsis Conclusion/Plan: Resolved The patient met criteria for sepsis: Lactic acid >2, WBC < 4K, Bands > 10%, respiratory rate very elevated, MAP less than 65, and her pulm status was the cause. Sepsis criteria resolved once infection was treated. Greater than 30 minutes was spent coordinating discharge This document was made in part using voice recognition software. While efforts are made to proofread this document, sound alike and grammatical errors may occur. - ALLERGIES Allergies/Adverse Reactions: Allergies Allergy/AdvReac Type Severity Reaction Status Date / Time morphine Allergy Hives Verified 06/13/23 19:07 Penicillins Allergy Unknown Verified 06/13/23 19:07 - MEDICATIONS Home Medications: Ambulatory Orders Medication Instructions Recorded Confirmed Albuterol Sulf [Ventolin Hfa 1 - 2 puffs IH PRN PRN 06/13/21 06/13/23 Inhaler] Baclofen [Lioresal] 1 tablet ORAL Q6H PRN 06/13/21 06/13/23 Cetirizine [ZyrTEC] 1 tab ORAL HS 06/13/21 06/13/23 Duloxetine HCl [Cymbalta] 60 mg PO DAILY 06/13/21 06/13/23 Montelukast [Singulair] 1 tab ORAL DAILY 06/13/21 06/13/23 lamoTRIgine [Lamictal] 2 tablet PO HS 06/13/21 06/13/23 traMADol [Ultram] 1 tablet ORAL PRN PRN 06/13/21 06/13/23 Gabapentin [Neurontin] 300 mg ORAL TID 11/05/22 06/13/23 Meloxicam, Submicronized 15 mg PO DAILY 11/06/22 06/13/23 [Meloxicam] Atomoxetine HCl [Strattera] 80 mg PO DAILY 06/13/23 06/13/23 Biotin/Lutein [Biotin Plus 5,000 2 each PO DAILY 06/13/23 06/13/23 Mcg Tablet] Buprenorphine 1 each TD FR 06/13/23 06/13/23 Cholecalciferol (Vitamin D3) 125 mcg PO DAILY 06/13/23 06/13/23 [Vitamin D3] Fluticasone Propion/Salmeterol 1 puffs PO BID 06/13/23 06/13/23 [Wixela 250-50 Inhub] Hydrocodone/Acetaminophen 2 each PO Q6H PRN 06/13/23 06/13/23 [Hydrocodone-Acetamin 5-300 mg] Vitamin K2 [Mk-7] 90 mcg PO DAILY 06/13/23 06/13/23 hydrOXYzine HCL [Hydroxyzine HCl] 100 mg PO TID PRN 06/13/23 06/13/23 Multivitamin [Infuvite] 10 ml IV 1900 ml 06/21/23 TPN (Clinimix E 5/15) [Clinimix E 2,000 ml IV 1900 each 06/21/23 5%-15% Solution] Trace Elements [Tralement Vial] 1 ml IV 1900 ml 06/21/23 - PHYSICAL EXAM AT DISCHARGE General Appearance: positive: No acute distress, Alert Eyes Bilateral: positive: PERRL ENT: positive: No signs of dehydration Neck: positive: No JVD Respiratory: positive: No respiratory distress, Other (Gutierrez in place and no fluctuence, redness or heat.). negative: Wheezes, Rales, Rhonchi Cardiovascular: positive: Regular rate & rhythm Abdomen: positive: Non-tender, Nml bowel sounds, No distention Skin: positive: Other (slight pinkness at BKA stump line. No drainage, no fluid , no heat to touch. ) Extremities: positive: Full ROM, Other (Right BKA stump) Neurologic/Psychiatric: positive: Oriented x3, CN's nml (2-12), Motor nml - LABS Result Diagrams: 06/20/23 05:30 06/20/23 08:58 - SEPSIS Current Stage of Sepsis: Sepsis Possible source of Sepsis: Pulmonary Sepsis Criteria: Recorded Heart Rate greater than 90 bpm, Respiratory: Increasing oxygen requirements, WBC count greater than 10% bands, WBC count greater than 12,000 or less than 4000, MAP less than 65 mmHg, Metabolic: lactate > 2 mmol/L"
[2023-06-21] MEDS: LORazepam 0.5 MG TABLET PO PRN (12:17)
== END 2023-06-21 14:15 | disposition home health service (06) | DRG 871 ==
LOC: EDUNIT# → ED 07:50 → ICU 12:23 → MS2 06-17 22:14
PROVIDERS: ADMIT Internal Medicine; ATTEND Specialist
PROC: 0BH17EZ Insertion of Endotracheal Airway into Trachea, Via Natural or Artificial Opening (ICD-10-PCS; principal; 2023-06-13)
PROC: 5A1945Z Respiratory Ventilation, 24-96 Consecutive Hours (ICD-10-PCS; 2023-06-13)
DX: A41.9 Sepsis, unspecified organism (principal); J18.9 Pneumonia, unspecified organism; J14 Pneumonia due to Hemophilus influenzae; J96.01 Acute respiratory failure with hypoxia; J45.901 Unspecified asthma with (acute) exacerbation; I50.30 Unspecified diastolic (congestive) heart failure; M54.9 Dorsalgia, unspecified; I48.91 Unspecified atrial fibrillation; R65.20 Severe sepsis without septic shock; F41.9 Anxiety disorder, unspecified; F31.9 Bipolar disorder, unspecified; G89.29 Other chronic pain; R53.1 Weakness; Z85.028 Personal history of other malignant neoplasm of stomach; Z89.511 Acquired absence of right leg below knee; Z90.3 Acquired absence of stomach [part of]; Z88.0 Allergy status to penicillin; Z99.3 Dependence on wheelchair
CPT/HCPCS: 36415; 36600; 71045; 80048; 80053; 82310; 82330; 82803; 82947; 83036; 83605; 83690; 83721; 83735; 83880; 84100; 84132; 84134; 84478; 84484; 85025; 87040; 87077; 87150; 87633; 93005; 93306; 93971; 94002; 94003; 94640; 96361; 96365; 96366; 96375; 96376; 97110; 97163; 97167; 97530; 99285; A9270; J0131; J1650; J1815; J2060; J2997; J3010; J3490; J7626

== ENCOUNTER 2023-06-21 14:16 | Outpatient (CLI) | payer MEDICARE, MEDICAID | END 2023-06-21 23:59 | disposition home or self-care (01) | LOC: EMS 14:16 | PROVIDERS: ATTEND Specialist | DX: J96.01 Acute respiratory failure with hypoxia (principal); Z74.01 Bed confinement status; R53.1 Weakness | CPT/HCPCS: A0425; A0428 ==

== ENCOUNTER 2023-07-16 13:15 | Outpatient (CLI) | payer MEDICARE, MEDICAID ==
--- NOTE | 2023-07-16 15:45 | XRAY Report ---
PROCEDURE: Chest 2 View X-Ray INDICATIONS: PRODUCTIVE COUGH TECHNIQUE: 2 views of the chest were acquired. COMPARISON: Single view the chest dated 06/19/2023, single view the chest dated 06/13/2021 FINDINGS: Surgical changes and devices: Right central venous catheter is unchanged. Lungs and pleura: When compared with the study dated 06/19/2023, there is a marked decrease in the p erihilar interstitial radiopacities. However, scattered interstitial radiopacities persist. No pleura l effusion or pneumothorax. Probable granuloma within the right midlung is unchanged from 2020. Mediastinum: Mediastinal contours appear normal. Heart size is normal. Bones and chest wall: No suspicious bony lesions. Overlying soft tissues appear unremarkable. IMPRESSION: Partially resolved bilateral perihilar pulmonary radiopacities suggesting resolving pneumonia or part ial diuresis. Reviewed by: Mena Carlson MD on 07/16/2023 3:43 PM PST Approved by: Mena Carlson MD on 07/16/2023 3:43 PM PST Station ID: [id number]
== END 2023-07-16 13:30 | disposition home or self-care (01) ==
LOC: DI.N 13:15
PROVIDERS: ATTEND Nurse Practitioner
DX: R05.8 Other specified cough (principal); R91.8 Other nonspecific abnormal finding of lung field

== ENCOUNTER 2024-06-17 17:48 | Inpatient (IN) ==
--- NOTE | 2024-06-17 18:25 | ED Physician Documentation ---
PD HPI UPPER EXT INJURY Stated complaint Stated Complaint: R SHOULDER INJ Chief complaint Chief Complaint: Ext Problem Additonal information Additional information: 53-year-old female with central line due to malnutrition presents emergency department for right shoulder pain. Patient is overall poor historian she says that she has a history of malnutrition because her stomach stopped working so she requires TPN for nutrition through her central line. She also has a BKA of her right lower extremity as she says was caused due to a spider bite. She has any alcohol or drug abuse. Patient says that she has been having chronic right shoulder pain for the last 14 years with on-and-off infections to her right central line. She is here about a week ago for right shoulder pain was placed in a sling and has had no improvement of symptoms. She followed up with urgent care today for ongoing evaluation of her right shoulder pain and they sent her here to the emergency department as there is increased erythema. Patient says that she has been having fevers at home up to 102 degrees. Meds/Allgy Home Medications Ambulatory Orders Medication Instructions Recorded Confirmed albuterol sulfate 90 mcg/actuation 1 - 2 puff IH PRN PRN Shortness Of 06/13/21 06/17/24 aerosol inhaler (Ventolin HFA) Air/Wheezing cetirizine 10 mg tablet 1 tab ORAL HS 06/13/21 06/17/24 duloxetine 60 mg capsule,delayed 60 mg PO DAILY 06/13/21 06/17/24 release (Cymbalta) lamotrigine 200 mg tablet 2 tab PO HS 06/13/21 06/17/24 (Lamictal) montelukast 10 mg tablet 1 tab ORAL DAILY 06/13/21 06/17/24 gabapentin 300 mg capsule 300 mg ORAL TID 11/05/22 06/17/24 biotin 5,000 mcg-lutein 10 mg 2 ea PO DAILY 06/13/23 06/17/24 tablet (Biotin Plus) cholecalciferol (vitamin D3) 125 125 mcg PO DAILY 06/13/23 06/17/24 mcg (5,000 unit) capsule hydroxyzine HCl 50 mg tablet 100 mg PO TID PRN Anxiety 06/13/23 06/17/24 vitamin K2 90 mcg capsule (MK-7) 90 mcg PO DAILY 06/13/23 06/17/24 amino acids 5 %-dextrose 15 2,000 ml IV 1900 06/21/23 %-electrolytes intravenous solution (Clinimix E) mvi, adult no.4 with vit K 3300 10 ml IV 1900 06/21/23 06/17/24 unit-150 mcg/10 mL intravenous solution (Infuvite Adult) trace elements Zn 3 mg-Cu 0.3 1 ml IV 1900 06/21/23 06/17/24 mg-Mn 55 mcg-Se 60 mcg/mL IV solution (Tralement) baclofen 20 mg tablet mg PO 06/17/24 06/17/24 buprenorphine 20 mcg/hour weekly transdermal 06/17/24 06/17/24 transdermal patch buspirone 5 mg tablet mg PO 06/17/24 06/17/24 dextroamphetamine sulfate 20 mg mg PO 06/17/24 06/17/24 tablet dextroamphetamine-amphetamine 15 PO 06/17/24 06/17/24 mg tablet fluticasone 500 mcg-salmeterol 50 inhalation 06/17/24 06/17/24 mcg/dose blistr powdr for inhalation (Wixela Inhub) fluticasone propionate 50 intranasal 06/17/24 06/17/24 mcg/actuation nasal spray,suspension furosemide 40 mg tablet mg PO 06/17/24 06/17/24 meloxicam 15 mg tablet mg PO 06/17/24 06/17/24 Allergies Allergies Allergy/AdvReac Type Severity Reaction Status Date / Time Penicillins Allergy Severe Anaphylaxis Verified 06/17/24 17:59 morphine Allergy Intermediate Hives Verified 06/17/24 17:59 vancomycin Allergy Intermediate Hives Verified 06/17/24 17:59 [facility] Medical History Medical History Medical history unknown Surgical History Surgical History Surgical history unknown Social History Social History Smoking Status: Former smoker If you are a former smoker, when did you quit? (Date/Year): 2015 Do you vape?: No Living arrangement: At home Living Condition: Alone Relationship: Level: Assisted Home Mobility Equipment: Cane, Walker, Wheeled walker, Wheelchair and Crutches Do you feel safe in your home environment?: Yes Suffered physical, verbal, emotional, or financial abuse?: No History of Abuse: No ETOH Use: None POLST Patient has POLST: Yes POLST Status: Full Code Exam Constitutional abnormal general appearance (chronically ill), (appears older than stated age) and (frail appearing), no apparent distress, average body habitus, no limitations and alert HENMT dentition abnormal (no teeth) Chest inspection of chest normal right chest central line without erythema or purulent fluid collection. Respiratory breath sounds equal bilaterally and normal respiratory effort Cardiovascular normal heart rate noted Skin right deltoid erythema with fluid collection superior to the humerus with fluctuance. erythema surrounding right shoulder with no open wounds. Results Vitals Vitals: Vital Signs - 24 hr 06/17/24 17:59 06/17/24 20:32 Temperature 37.8 C Temperature Source Oral Pulse Rate 60 67 Respiratory Rate 16 Blood Pressure 104/58 L 95/53 L O2 Saturation 96 94 O2 Source Room air Room air Pain Intensity 6 8 Oxygen O2 Source Room air Labs Labs: Laboratory Tests 06/17/24 19:00 WBC 8.2 RBC 3.60 L Hgb 9.4 L Hct 29.6 L MCV 82.2 MCH 26.1 L MCHC 31.8 L RDW 14.7 Plt Count 271 MPV 10.2 Neut # (Auto) 6.4 Lymph # (Auto) 0.9 L [place] # (Auto) 0.8 Eos # (Auto) 0.0 Baso # (Auto) 0.0 Absolute Nucleated RBC 0.00 Nucleated RBC % 0.0 ESR 67 H Sodium 134 L Potassium 3.5 Chloride 102 Carbon Dioxide 26 Anion Gap 6.0 BUN 12 Creatinine 0.5 L Estimated GFR (MDRD) 130 Glucose 124 H Lactic Acid 0.7 Calcium 8.0 L Total Bilirubin 0.7 AST 15 ALT 12 Alkaline Phosphatase 104 C-Reactive Protein 27.3 H Total Protein 5.3 L Albumin 2.8 L Globulin 2.5 Albumin/Globulin Ratio 1.1 Rads (name of study) Chest x-ray: Relevant Findings:: Final report received and EMP independent interpretation of test Interpretation: IMPRESSION: Edema surrounding the right shoulder. Right upper extremity with contrast: Relevant Findings:: Final report received and EMP independent interpretation of test Interpretation: IMPRESSION: Gas and rim enhancing collection extending along the lateral aspect of the humerus, likely involving the glenohumeral joint space as well. Findings are highly concerning for abscess, septic arthritis being a consideration given the association with the joint. No bony erosion to suggest acute osteomyelitis at this time. PD Medical Decision Making ED course Complexity details: reviewed old records, reviewed results, re-evaluated patient, d/w patient and d/w jewelry consultant (ortho Dr. Wayne and telehospitalist ) ED course: 53-year-old female presents emergency department for right shoulder pain, erythema, fluctuance over right deltoid. Differentials include but are not limited to abscess, cellulitis, septic joint, shoulder injury. Patient denies a ny recent falls or trauma to the right shoulder she said that she is not wearing her sling with little to no improvement. Given that she is febrile, 103 F rectally upon arrival to the emergency department with his right shoulder erythema and fluctuance went ahead with a right upper extremity CT without contrast. Radiologist Dr. Long called to notify me of the concerning findings. There is gas and rim-enhancing collection extending along the lateral aspect of the humerus likely involving the glenohumeral joint space as well. Findings are highly concerning for abscess, septic arthritis. There is no bony erosions or other bony abnormalities to suggest possible acute osteomyelitis at this point in time. Labs are complete for further evaluation surprisingly patient does not have any leukocytosis mild anemia, hemoglobin 9.4, hematocrit 29.6. ESR elevated 67 normal electrolytes overall normal kidney function CRP elevated at 27.3 normal lactic. Patient received 1 L of IV fluids her blood pressure did start to trend down 95/53. Because of these findings I reach out to Dr. Armas, orthopedic surgeon and she has graciously agreed to come into the emergency department to evaluate the patient and she recommends an OR washout. Dr. Armas asking to hold off on any antibiotics at this point in time until she can get cultures in the OR holding off on antibiotics for now. I then reach out to telemetry hospitalist And she has graciously agreed to admit the patient for further hospitalization after OR surgical washout. Patient is agreeable to go to the OR. Discharge Plan Discharge Prescriptions: No Action lamotrigine [Lamictal] 200 MG tablet 2 tab PO HS Patient Comments: TAKE 2 TABLETS BY MOUTH AT BEDTIME cetirizine 10 MG tablet 1 tab ORAL HS Patient Comments: TAKE 1 TABLET BY MOUTH NIGHTLY. montelukast 10 MG tablet 1 tab ORAL DAILY Patient Comments: TAKE 1 TABLET BY MOUTH EVERY EVENING AT BEDTIME. albuterol sulfate [Ventolin HFA] 200 PUFFS/18 GM HFA aerosol inhaler 1 - 2 puff IH PRN PRN (Reason: Shortness Of Air/Wheezing) Patient Comments: USE 2 PUFFS BY MOUTH EVERY 4-6 HOURS. duloxetine [Cymbalta] 60 MG capsule,delayed release(DR/EC) 60 mg PO DAILY Patient Comments: TAKE 1 CAPSULE BY MOUTH EVERY DAY gabapentin 300 MG capsule 300 mg ORAL TID hydroxyzine HCl 50 MG tablet 100 mg PO TID PRN (Reason: Anxiety) cholecalciferol (vitamin D3) 125 MCG capsule 125 mcg PO DAILY vitamin K2 [MK-7] 90 MCG capsule 90 mcg PO DAILY biotin-lutein [Biotin Plus] 1 EACH tablet 2 ea PO DAILY AA [id number] [Clinimix E 5%/D15W Sulfit Free] 2,000 ML parenteral solution 2,000 ml IV 1900 0RF mvi, adult no.4 with vit K [Infuvite Adult] 10 ML solution 10 ml IV 1900 0RF trace elements Zn-Cu-Mn-Se [Tralement] 1 ML solution 1 ml IV 1900 0RF baclofen 20 mg tablet PO Patient Comments: TAKE 1 TABLET BY MOUTH THREE TIMES DAILY NEEDED FOR MUSCLE SPASMS buspirone 5 mg tablet PO Patient Comments: TAKE 2 TABLETS BY MOUTH TWICE DAILY buprenorphine 20 mcg/hour patch weekly transdermal Patient Comments: APPLY 1 PATCH TOPICALLY TO THE SKIN 1 TIME EVERY WEEK dextroamphetamine sulfate 20 mg tablet PO Patient Comments: TAKE 1 TABLET BY MOUTH TWICE DAILY WITH FOOD FOR ATTENTION AND FOCUS dextroamphetamine-amphetamine 15 mg tablet PO Patient Comments: TAKE 1 TABLET BY MOUTH DAILY FOR ATTENTION OR FOCUS fluticasone propionate 50 mcg/actuation spray,suspension intranasal Patient Comments: SHAKE LIQUID AND USE 1 SPRAY IN EACH NOSTRIL TWICE DAILY fluticasone propion-salmeterol [Wixela Inhub] 500-50 mcg/dose blister with device inhalation furosemide 40 mg tablet PO Patient Comments: TAKE 1 TABLET BY MOUTH DAILY NEEDED FOR WEIGHT GAIN OVER 2 POUNDS OVERNIGHT meloxicam 15 mg tablet PO Patient Comments: TAKE 1 TABLET BY MOUTH DAILY WITH FOOD Print Language: Burkinan Stand Alone Forms: PCP List
[2024-06-17] MEDS ORDERED: iohexoL-300 100 ML VIAL ONE (18:52)
[2024-06-17] MEDS: SODIUM CHLORIDE 0.9% 2,000 ML IV STA (19:07)
[2024-06-17 19:12] LABS: BASOPHILS % (AUTO) 0.4 %; EOSINOPHILS % (AUTO) 0.1 %; HCT - HEMATOCRIT 29.6 % (37.0-47.0); HGB - HEMOGLOBIN 9.4 g/dL (12.0-16.0); LYMPHOCYTES # (AUTO) 0.9 10^3/uL (1.5-3.5); LYMPHOCYTES % (AUTO) 11.4 %; MEAN CORPUSCULAR HEMOGLOBIN 26.1 pg (27.0-31.0); MEAN CORPUSCULAR HGB CONC 31.8 g/dL (32.0-36.0); MEAN CORPUSCULAR VOLUME 82.2 fL (81.0-99.0); MEAN PLATELET VOLUME 10.2 fL (7.9-10.8); MONOCYTES # (AUTO) 0.8 10^3/uL (0.0-1.0); MONOCYTES % (AUTO) 9.2 %; NEUTROPHILS # (AUTO) 6.4 10^3/uL (1.5-6.6); NEUTROPHILS % (AUTO) 78.3 %; PLT - PLATELET COUNT 271 10^3/uL (130-450); RED CELL DISTRIBUTION WIDTH 14.7 % (12.0-15.0); WHITE BLOOD COUNT 8.2 x10^3/uL (4.8-10.8)
[2024-06-17] MEDS: iohexoL-300 100 ML VIAL IVP ONE (19:28)
[2024-06-17 19:35] LABS: ALBUMIN 2.8 g/dL (3.2-5.5); ALBUMIN/GLOBULIN RATIO 1.1 (1.0-2.2); BILIRUBIN,TOTAL 0.7 mg/dL (0.2-1.0); CREATININE 0.5 mg/dL (0.6-1.3); POTASSIUM 3.5 mmol/L (3.5-4.5); TOTAL PROTEIN 5.3 g/dL (6.4-8.9)
--- NOTE | 2024-06-17 19:40 | CT Report ---
PROCEDURE: CT Upper Extremity RT W INDICATIONS: right deltoid cellulitis, abcsess TECHNIQUE: Precontrast 3 mm axial sections acquired of the right shoulder, with coronal and sagittal reformats. After administration of contrast 3 mm axial sections acquired of the , with coronal and sagittal ref ormats. For radiation dose reduction, the following was used: automated exposure control, adjustmen t of mA and/or kV according to patient size. CONTRAST: 100ml [id number] COMPARISON: None. FINDINGS: Image quality: Excellent. Bones: No associated bony erosion of the humeral head or glenoid. Degenerative changes about the lisha ulder, with super subluxation of the right humeral head, indicating prior rotator cuff injury. Soft tissues: There is a large rim-enhancing collection surrounding the right humeral head, extendin g into the glenohumeral joint. The collection measures approximately 7.3 x 7.0 x 8.7 cm (transverse, AP, CC). There is gas within the collection along the superior aspect. Reactive right axillary chain lymph nodes. IMPRESSION: Gas and rim enhancing collection extending along the lateral aspect of the humerus, like ly involving the glenohumeral joint space as well. Findings are highly concerning for abscess, septic arthritis being a consideration given the association with the joint. No bony erosion to suggest acu te osteomyelitis at this time. Above discussed with Elizabeth Raphael DNP at 7:37 PM on 06/17/2024. Reviewed by: Mario Long MD on 06/17/2024 7:38 PM PST Approved by: Mario Long MD on 06/17/2024 7:38 PM PST Station ID: [id number]
--- NOTE | 2024-06-17 19:41 | XRAY Report ---
PROCEDURE: XR Chest 1V INDICATIONS: Sepsis TECHNIQUE: One view of the chest was acquired. COMPARISON: None. FINDINGS: Surgical changes and devices: Right chest wall central venous catheter tip projects over the high ri ght atrium. Surgical clips project over the thorax. Surgical anchor in the glenoid. Lungs and pleura: No pleural effusions or pneumothorax. Lungs are clear. Mediastinum: Mediastinal contours appear normal. Heart size is normal. Bones and chest wall: No suspicious bony lesions. Edema surrounding the right shoulder. IMPRESSION: Edema surrounding the right shoulder. Reviewed by: Mario Long MD on 06/17/2024 7:39 PM PST Approved by: Mario Long MD on 06/17/2024 7:39 PM PST Station ID: [id number]
[2024-06-17] MEDS: LIDOCAINE 1%-EPI 1:100000 10 ML MDV SUBQ STA (19:45)
--- NOTE | 2024-06-17 21:15 | ANESTHESIA PROCEDURE NOTE ---
Pre-Anesthesia VS, & Labs Diagnosis Surgical Diagnosis:: right shoulder abscess Procedure Procedure: I&D right shoulder abscess Vitals Vital Signs: Temp Pulse Resp BP Pulse Ox O2 Flow Rate 36.4 C L 65 18 96/51 L 95 1 06/18/24 09:07 06/18/24 09:07 06/18/24 09:07 06/18/24 09:07 06/18/24 09:07 06/18/24 12:32 Height (in): 5 ft 6 in Weight (kg): 67 kg Body Mass Index: 23.8 BMI Classification: Normal NPO NPO: >8 hours Is Patient ?: Not Applicable Lab Results Current Lab Results: Laboratory Tests 06/18/24 04:57: WBC 7.8, RBC 3.62 L, Hgb 9.5 L, Hct 30.8 L, MCV 85.1, MCH 26.2 L , MCHC 30.8 L, RDW 15.0, Plt Count 250, MPV 10.5, Neut # (Auto) 6.2, Lymph # (Auto) 0.8 L, Becker # (Auto) 0.7, Eos # (Auto) 0.0, Baso # (Auto) 0.1, Absolute Nucleated RBC 0.00, Nucleated RBC % 0.0, Sodium 139, Potassium 3.4 L, Chloride 108, Carbon Dioxide 25, Anion Gap 6.0, BUN 9, Creatinine 0.6, Estimated GFR (MDRD) 105, Glucose 107 H, Calcium 7.8 L, Phosphorus 3.8, Magnesium 1.8, C- Reactive Protein 27.5 H, Prealbumin < 3 L, Triglycerides 77 06/18/24 01:34: POC Whole Bld Glucose 133 06/17/24 19:00: WBC 8.2, RBC 3.60 L, Hgb 9.4 L, Hct 29.6 L, MCV 82.2, MCH 26.1 L , MCHC 31.8 L, RDW 14.7, Plt Count 271, MPV 10.2, Neut # (Auto) 6.4, Lymph # (Auto) 0.9 L, Becker # (Auto) 0.8, Eos # (Auto) 0.0, Baso # (Auto) 0.0, Absolute Nucleated RBC 0.00, Nucleated RBC % 0.0, ESR 67 H, Sodium 134 L, Potassium 3.5, Chloride 102, Carbon Dioxide 26, Anion Gap 6.0, BUN 12, Creatinine 0.5 L, Estimated GFR (MDRD) 130, Glucose 124 H, Lactic Acid 0.7, Calcium 8.0 L, Total Bilirubin 0.7, AST 15, ALT 12, Alkaline Phosphatase 104, C-Reactive Protein 27.3 H, Total Protein 5.3 L, Albumin 2.8 L, Globulin 2.5, Albumin/Globulin Ratio 1.1 Lab results reviewed: Yes 06/18/24 04:57 06/18/24 04:57 Meds/Allgy Home Medications Ambulatory Orders Medication Instructions Recorded Confirmed albuterol sulfate 90 mcg/actuation 1 - 2 puff IH PRN PRN Shortness Of 06/13/21 06/18/24 aerosol inhaler (Ventolin HFA) Air/Wheezing cetirizine 10 mg tablet 10 mg PO HS 06/13/21 06/18/24 duloxetine 60 mg capsule,delayed 120 mg PO DAILY 06/13/21 06/18/24 release (Cymbalta) lamotrigine 200 mg tablet 400 mg PO HS 06/13/21 06/18/24 (Lamictal) montelukast 10 mg tablet 1 tab PO QPM 06/13/21 06/18/24 gabapentin 300 mg capsule 300 mg ORAL TID 11/05/22 06/18/24 biotin 5,000 mcg-lutein 10 mg 2 tab PO DAILY 06/13/23 06/18/24 tablet (Biotin Plus) hydroxyzine HCl 50 mg tablet 100 mg PO TID PRN Anxiety 06/13/23 06/18/24 amino acids 5 %-dextrose 15 2,000 ml IV 1900 06/21/23 06/18/24 %-electrolytes intravenous solution (Clinimix E) mvi, adult no.4 with vit K 3300 10 ml IV 189906/21/23 06/18/24 unit-150 mcg/10 mL intravenous solution (Infuvite Adult) trace elements Zn 3 mg-Cu 0.3 1 ml IV 0 06/21/23 06/18/24 mg-Mn 55 mcg-Se 60 mcg/mL IV solution (Tralement) baclofen 20 mg tablet 20 mg PO DAILY 06/17/24 06/18/24 buprenorphine 20 mcg/hour weekly 1 patch transdermal Q7D 06/17/24 06/18/24 transdermal patch buspirone 5 mg tablet 5 mg PO DAILY 06/17/24 06/18/24 dextroamphetamine sulfate 20 mg 20 mg PO BID 06/17/24 06/18/24 tablet dextroamphetamine-amphetamine 15 15 mg PO QPM 06/17/24 06/18/24 mg tablet fluticasone 500 mcg-salmeterol 50 1 inh inhalation DAILY 06/17/24 06/18/24 mcg/dose blistr powdr for inhalation (Wixela Inhub) fluticasone propionate 50 1 spray intranasal BID 06/17/24 06/18/24 mcg/actuation nasal spray,suspension furosemide 40 mg tablet 40 mg PO DAILY 06/17/24 06/18/24 meloxicam 15 mg tablet 15 mg PO DAILY 06/17/24 06/18/24 cyclobenzaprine 10 mg tablet 5 - 10 mg PO TID PRN muscle spasms 06/18/24 06/18/24 Allergies Allergies Allergy/AdvReac Type Severity Reaction Status Date / Time Penicillins Allergy Severe Anaphylaxis Verified 06/17/24 17:59 morphine Allergy Intermediate Hives Verified 06/17/24 17:59 vancomycin Allergy Intermediate Hives Verified 06/17/24 17:59 [facility] Medical History Medical History (Updated 06/18/24 @ 13:27 by Tong Pedroza) Malnutrition Asthma On total parenteral nutrition (TPN) right central line Surgical History Surgical History (Updated 06/17/24 @ 21:14 by Angelica Alanis CRNA) History of gastric surgery Hx of right BKA Social History Social History Smoking Status: Former smoker If you are a former smoker, when did you quit? (Date/Year): 2014 Do you dip or chew tobacco?: No Do you vape?: No Living arrangement: At home Living Condition: Alone Relationship: Level: Assisted Home Mobility Equipment: Cane, Walker and Wheelchair Do you feel safe in your home environment?: Yes Suffered physical, verbal, emotional, or financial abuse?: No History of Abuse: No ETOH Use: None POLST Patient has POLST: Yes POLST Status: Full Code Results Echo Results Echo Results: Report reviewed Anesthesia Exam (Expanded) Exam General: Alert, Oriented x3 and Cooperative Dental: Other (edentulous) Mouth Openin Fingerbreadth Neck Mobility: Normal Mallampati classification: I Thyromental Distance: 4-6 cm Mental/Cognitive Status: Alert/Oriented X3 and Normal for patient Plan Plan Anesthesia Type: General Consent for Procedure(s) Verified and Reviewed: Yes Code Status: Attempt Resuscitation ASA Classification ASA classification: 3-Severe systemic disease Is this case an emergency?: Yes
[2024-06-17 21:16] LABS: BILIRUBIN,URINE NEGATIVE (NEGATIVE); GLUCOSE, URINE (UA) NEGATIVE (NEGATIVE); KETONES,URINE (UA) NEGATIVE (NEGATIVE); LEUKOCYTE ESTERASE, URINE NEGATIVE (NEGATIVE); NITRITE,URINE NEGATIVE (NEGATIVE); OCCULT BLOOD,URINE NEGATIVE (NEGATIVE); PROTEIN,URINE TRACE mg/dL (NEGATIVE); UROBILINOGEN,URINE 1 (NORMAL) E.U./dL (NORMAL)
[2024-06-17 21:17] LABS: CLARITY,URINE CLEAR (CLEAR)
[2024-06-17] MEDS ORDERED: PROPOFOL 200 MG/20 ML VIAL IVP ONE (21:31)
[2024-06-17] MEDS ORDERED: MIDAZOLAM 2 MG/2 ML VIAL ONE (21:31)
[2024-06-17] MEDS ORDERED: fentaNYL 100 MCG/2 ML VIAL ONE (21:31)
[2024-06-17] MEDS ORDERED: ROCURONIUM 50 MG/5 ML VIAL ONE (21:31)
[2024-06-17] MEDS ORDERED: KETAMINE 500 MG/10 ML VIAL ONE (21:37)
[2024-06-17] MEDS ORDERED: SODIUM CHLORIDE 0.9% 10 ML VIAL IVP ONE (21:38)
--- NOTE | 2024-06-17 21:50 | HISTORY & PHYSICAL EXAMINATION ---
History of Present Illness History of Present Illness HPI Comment/Other: This is a 53 old female with right shoulder pain for many years and known history of full-thickness rotator cuff tear with onset of erythema and swelling over her right shoulder over the last week. She denies fevers and chills at home, although in the emergency room she had a temperature of 103 F. She has a central line near her right shoulder that does not appear to be infected. She gets TPN through this line for 9 years and has had several central line infections. She describes difficulty moving her arm. She does not have difficulty moving her elbow. 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 Physical exam reveals a malnourished female in no acute distress T 103 deg F Evaluation of her right upper extremity demonstrates that her skin is intact. She has an area of approximately 10 cm x 8 cm of erythema swelling and fluctuance over the anterior aspect of her deltoid with tenderness to palpation she is unable to actively forward flex or abduct her arm. She does however state that it is difficult for her to move her arm at baseline because of her full-thickness rotator cuff tear. Her sensation is intact to light touch in the axillary, radial, and median nerve distributions. She can fire her deltoid, she can fire her EPL, FPL, and interossei muscles Her radial pulses 2+ and she has brisk capillary refill. CT scan: Gas and rim enhancing collection extending along the lateral aspect of the humerus, likely involving the glenohumeral joint space as well. Findings are highly concerning for abscess, septic arthritis being a consideration given the association with the joint. No bony erosion to suggest acute osteomyelitis at this time. CRP: 27.3; Nml WBC but patient is neutropenic at baseline. Assessment this is a 53-year-old female with deltoid abscess and concern for septic joint of the shoulder. I discussed with her the risks benefits and alternatives of surgical versus nonsurgical treatment to include but not limited to damage to arteries veins nerves need for additional surgery potential for repacking of the wound long- term IV antibiotics stiffness of the right shoulder. She understands all these risks and was consented for an incision and debridement of the right shoulder and all other indicated procedures. All of her questions were answered Meds/All Home Medications Ambulatory Orders Medication Instructions Recorded Confirmed albuterol sulfate 90 mcg/actuation 1 - 2 puff IH PRN PRN Shortness Of 06/13/21 06/17/24 aerosol inhaler (Ventolin HFA) Air/Wheezing cetirizine 10 mg tablet 1 tab ORAL HS 06/13/21 06/17/24 duloxetine 60 mg capsule,delayed 60 mg PO DAILY 06/13/21 06/17/24 release (Cymbalta) lamotrigine 200 mg tablet 2 tab PO HS 06/13/21 06/17/24 (Lamictal) montelukast 10 mg tablet 1 tab ORAL DAILY 06/13/21 06/17/24 gabapentin 300 mg capsule 300 mg ORAL TID 11/05/22 06/17/24 biotin 5,000 mcg-lutein 10 mg 2 ea PO DAILY 06/13/23 06/17/24 tablet (Biotin Plus) cholecalciferol (vitamin D3) 125 125 mcg PO DAILY 06/13/23 06/17/24 mcg (5,000 unit) capsule hydroxyzine HCl 50 mg tablet 100 mg PO TID PRN Anxiety 06/13/23 06/17/24 vitamin K2 90 mcg capsule (MK-7) 90 mcg PO DAILY 06/13/23 06/17/24 amino acids 5 %-dextrose 15 2,000 ml IV 189906/21/23 %-electrolytes intravenous solution (Clinimix E) mvi, adult no.4 with vit K 3300 10 ml IV 0 06/21/23 06/17/24 unit-150 mcg/10 mL intravenous solution (Infuvite Adult) trace elements Zn 3 mg-Cu 0.3 1 ml IV 189906/21/23 06/17/24 mg-Mn 55 mcg-Se 60 mcg/mL IV solution (Tralement) baclofen 20 mg tablet mg PO 06/17/24 06/17/24 buprenorphine 20 mcg/hour weekly transdermal 06/17/24 06/17/24 transdermal patch buspirone 5 mg tablet mg PO 06/17/24 06/17/24 dextroamphetamine sulfate 20 mg mg PO 06/17/24 06/17/24 tablet dextroamphetamine-amphetamine 15 PO 06/17/24 06/17/24 mg tablet fluticasone 500 mcg-salmeterol 50 inhalation 06/17/24 06/17/24 mcg/dose blistr powdr for inhalation (Wixela Inhub) fluticasone propionate 50 intranasal 06/17/24 06/17/24 mcg/actuation nasal spray,suspension furosemide 40 mg tablet mg PO 06/17/24 06/17/24 meloxicam 15 mg tablet mg PO 06/17/24 06/17/24 Allergies Allergies Allergy/AdvReac Type Severity Reaction Status Date / Time Penicillins Allergy Severe Anaphylaxis Verified 06/17/24 17:59 morphine Allergy Intermediate Hives Verified 06/17/24 17:59 vancomycin Allergy Intermediate Hives Verified 06/17/24 17:59 [facility] Medical History Medical History (Updated 06/17/24 @ 21:32 by Elizabeth Raphael DNP) Asthma On total parenteral nutrition (TPN) right central line Surgical History Surgical History (Updated 06/17/24 @ 21:14 by Angelica Alanis CRNA) History of gastric surgery Hx of right BKA Social History Social History Smoking Status: Former smoker If you are a former smoker, when did you quit? (Date/Year): 2014 Do you vape?: No Living arrangement: At home Living Condition: Alone Relationship: Level: Assisted Home Mobility Equipment: Cane, Walker, Wheeled walker, Wheelchair and Crutches Do you feel safe in your home environment?: Yes Suffered physical, verbal, emotional, or financial abuse?: No History of Abuse: No ETOH Use: None POLST Patient has POLST: Yes POLST Status: Full Code Conclusion/Plan Lab Results Lab results reviewed: Yes 06/17/24 19:00 06/17/24 19:00
--- NOTE | 2024-06-17 22:05 | HISTORY & PHYSICAL EXAMINATION ---
Chief Complaint Chief Complaint Chief Complaint: right shoulder pain History of Present Illness Admitted From Admitted From:: home History Obtained From Records Reviewed: yes History obtained from: patient + ER staff Exam Limitations: telemedicine History of Present Illness HPI Comment/Other: Ms Quintanilla is a 53 yo F with history of bipolar disorder, R BKA (secondary to spider bite per patient), on chronic TPN (history unclear, per patient has been getting nightly TPN for the past ~9 years), chronic pain syndrome. She presented to the ER on 06/14 with complaints of right shoulder pain, at that time described as chronic pain for the past several years, she declined further work up and was discharged home. Today she went to urgent care with complaints of shoulder pain and was referred to ER for fevers. Patient reports that since her ER visit on 06/14 the pain has been progressively worsening. Worse with any movement. She denies abd pain, she has been feeling nauseous and vomited today, denies diarrhea. Fevers up to 102 F at home, febrile 103 F in the ER. She denies chest pain or shortness of breath. Denies alcohol, tobacco or illicit drug use. Patient states that a couple of years ago she had an abscess on her chest that required surgical wash out. She is found to have large right shoulder abscess on imaging in ER, orthopedics consulted and plan for emergent OR tonight. Review of Systems Constitutional Reports: Fatigue, Fever, Chills, Malaise and Weakness Cardiovascular Denies: chest pain, palpitations, Syncope or shortness of breath with exertion Respiratory Denies: Shortness of breath, Cough or Sputum production Gastrointestinal Reports: Nausea, Vomiting and Poor appetite; Denies: Abdominal pain, Diarrhea or Constipation Musculoskeletal Reports: Joint pain (right shoulder) Neurological Denies: Focal weakness, Behavioral changes or Slurred speech Endocrine Reports: Fatigue Hematologic/Lymphatic Denies: Anemia or Easy bruising PFS Medical History Medical History (Updated 06/17/24 @ 21:32 by Elizabeth Raphael DNP) Asthma On total parenteral nutrition (TPN) right central line Surgical History Surgical History (Updated 06/17/24 @ 21:14 by Angelica Alanis CRNA) History of gastric surgery Hx of right BKA Social History Social History Smoking Status: Former smoker If you are a former smoker, when did you quit? (Date/Year): 2014 Do you vape?: No Living arrangement: At home Living Condition: Alone Relationship: Level: Assisted Home Mobility Equipment: Cane, Walker, Wheeled walker, Wheelchair and Crutches Do you feel safe in your home environment?: Yes Suffered physical, verbal, emotional, or financial abuse?: No History of Abuse: No ETOH Use: None POLST Patient has POLST: Yes POLST Status: Full Code Meds/Allgy Home Medications Ambulatory Orders Medication Instructions Recorded Confirmed albuterol sulfate 90 mcg/actuation 1 - 2 puff IH PRN PRN Shortness Of 06/13/21 06/17/24 aerosol inhaler (Ventolin HFA) Air/Wheezing cetirizine 10 mg tablet 1 tab ORAL HS 06/13/21 06/17/24 duloxetine 60 mg capsule,delayed 60 mg PO DAILY 06/13/21 06/17/24 release (Cymbalta) lamotrigine 200 mg tablet 2 tab PO HS 06/13/21 06/17/24 (Lamictal) montelukast 10 mg tablet 1 tab ORAL DAILY 06/13/21 06/17/24 gabapentin 300 mg capsule 300 mg ORAL TID 11/05/22 06/17/24 biotin 5,000 mcg-lutein 10 mg 2 ea PO DAILY 06/13/23 06/17/24 tablet (Biotin Plus) cholecalciferol (vitamin D3) 125 125 mcg PO DAILY 06/13/23 06/17/24 mcg (5,000 unit) capsule hydroxyzine HCl 50 mg tablet 100 mg PO TID PRN Anxiety 06/13/23 06/17/24 vitamin K2 90 mcg capsule (MK-7) 90 mcg PO DAILY 06/13/23 06/17/24 amino acids 5 %-dextrose 15 2,000 ml IV 1900 06/21/23 %-electrolytes intravenous solution (Clinimix E) mvi, adult no.4 with vit K 3300 10 ml IV 1900 06/21/23 06/17/24 unit-150 mcg/10 mL intravenous solution (Infuvite Adult) trace elements Zn 3 mg-Cu 0.3 1 ml IV 1900 06/21/23 06/17/24 mg-Mn 55 mcg-Se 60 mcg/mL IV solution (Tralement) baclofen 20 mg tablet mg PO 06/17/24 06/17/24 buprenorphine 20 mcg/hour weekly transdermal 06/17/24 06/17/24 transdermal patch buspirone 5 mg tablet mg PO 06/17/24 06/17/24 dextroamphetamine sulfate 20 mg mg PO 06/17/24 06/17/24 tablet dextroamphetamine-amphetamine 15 PO 06/17/24 06/17/24 mg tablet fluticasone 500 mcg-salmeterol 50 inhalation 06/17/24 06/17/24 mcg/dose blistr powdr for inhalation (Wixela Inhub) fluticasone propionate 50 intranasal 06/17/24 06/17/24 mcg/actuation nasal spray,suspension furosemide 40 mg tablet mg PO 06/17/24 06/17/24 meloxicam 15 mg tablet mg PO 06/17/24 06/17/24 Allergies Allergies Allergy/AdvReac Type Severity Reaction Status Date / Time Penicillins Allergy Severe Anaphylaxis Verified 06/17/24 17:59 morphine Allergy Intermediate Hives Verified 06/17/24 17:59 vancomycin Allergy Intermediate Hives Verified 06/17/24 17:59 Exam Constitutional normal general appearance and no apparent distress HENMT normocephalic and head/scalp atraumatic Chest inspection of chest normal central line site visualized but difficult to clearly examine on video call Respiratory normal respiratory effort Cardiovascular normal heart rate noted (HR 60s per vitals) Extremities R BKA Neurology no movement abnormality noted, no focal motor deficit noted and speech normal Psychiatry mental status grossly normal, oriented x3, thought process normal, cooperative and affect normal Skin skin color normal and no rash Conclusion/Plan Lab Results Lab results reviewed: Yes 06/17/24 19:00 06/17/24 19:00 Diagnostic Imaging Results Diagnostic Imaging Results: positive Final report reviewed Diagnostic Imaging Results Comments: CT RUE: IMPRESSION: Gas and rim enhancing collection extending along the lateral aspect of the humerus, likely involving the glenohumeral joint space as well. Findings are highly concerning for abscess, septic arthritis being a consideration given the association with the joint. No bony erosion to suggest acute osteomyelitis at this time. Other Other Results/Comments: Assessment/Plan: R shoulder abscess -Orthopedics consulted by ER -Plan for OR tonight -NPO *Pharmacologic DVT prophylaxis and PT/OT consults/activity orders post op by orthopedics *Antibiotics to be ordered post op by orthopedics -[id number] in ER per report, no elevated leukocytosis, no tachycardia, lactic 0.7 -Follow up blood cultures -Follow up intra-op cultures -ID consult in a.m. -Repeat labs in a.m. History of bipolar disorder -Med rec pending -Patient confirmed lamictal 400 mg qhs History of chronic pain -Buprenorphine patch changed weekly on Friday -Remove in setting of acute pain postoperatively History of R BKA -Patient reports history of phantom pains, takes gabapentin PRN History of gastric surgery, long-term TPN -Patient gets TPN qhs via central line for the past 9 years, eats regular diet (small amounts) during the day -Recruitment Advertising Manager consult for nutrition assessment Full code DVT ppx: SCDs for now Core Measures DVT/VTE - Prophylaxis VTE/DVT Device ordered at admit?: Yes Telemedicine Consult Details Provider Location & Consult Time Telemedicine consultation conducted via videoconferencing?: Yes List names and roles of persons who participated in consult:: Lauryn BALES, patient, ER provider (phone) Telemedicine provider location:: [place]
[2024-06-17] MEDS ORDERED: BUPIVACAINE 0.5% PF 10 ML VIAL ONE (22:37)
[2024-06-17] MEDS ORDERED: CLINDAMYCIN 600 MG/50 ML 50 ML IV ONE (23:09)
[2024-06-17] MEDS ORDERED: ACETAMINOPHEN 1,000 MG/100 ML 1,000 MG/100 ML BAG IV ONE (23:10)
[2024-06-17] MEDS ORDERED: SUGAMMADEX 200 MG/2 ML VIAL IVP ONE (23:27)
[2024-06-17] MEDS ORDERED: HYDROmorphone 1 MG/ML CARPUJECT ONE (23:42)
[2024-06-17] MEDS ORDERED: ONDANSETRON 4 MG/2 ML VIAL ONE (23:42)
[2024-06-17] MEDS ORDERED: HYDROmorphone 0.5 MG/0.5 ML SYRINGE IVP PRN (23:55)
[2024-06-17] MEDS ORDERED: NALOXONE 0.4 MG/ML VIAL IVP PRN (23:55)
[2024-06-17] MEDS ORDERED: ONDANSETRON 4 MG/2 ML VIAL IVP PRN (23:55)
[2024-06-17] MEDS ORDERED: ATROPINE ABBOJECT 1 MG/10 ML SYRINGE IVP PRN (23:55)
[2024-06-17] MEDS ORDERED: fentaNYL 100 MCG/2 ML VIAL IVP PRN (23:55)
[2024-06-17] MEDS: LACTATED RINGERS 1,000 ML IV SCH (23:59)
--- NOTE | 2024-06-18 00:01 | OPERATIVE REPORT ---
Operative Report General Admit Date: 06/17/24 Procedure Data: Operation Date: 06/17/24 22:45 Proposed Procedures R shoulder I & D - Jennifer Wayne DO Actual Procedures p Incision and Drainage of Shoulder(Right) abscess - Jennifer Wayne DO Pre-Op Diagnosis: R SHOULDER ABSCESS Anesthesia Type General Case Staff Anesthesia Provider: Angelica Alanis Assisting Provider: Shasta Samayoa Case Times Procedure Start: 06/17/24 23:09 Procedure End: 06/17/24 23:50 Time out: 06/17/24 23:07 Pre-Op Diagnosis: RIGHT SHOULDER ABSCESS Post Op Diagnosis: RIGHT SHOULDER ABSCESS Procedure Note Estimated Blood Loss (ml): 30 Findings: SEE BELOW Complications: NONE Other Other Information/Narrative: this the patient was brought to the operating room and placed in supine position. General anesthesia was induced. The position the patient was positioned in the beachchair position. All bony prominences were padded. The neck was in neutral alignment. The right shoulder was prepped and draped in standard sterile fashion. A timeout performed confirming the correct patient, correct procedure, correct extremity, and initials on the operative site. IV antibiotics were given at the start of the case. An anterior lateral incision was made approximately 4 cm in length dissection was taken down through the subcutaneous tissue and purulent material was expressed immediately from the wound and copious amounts. The abscess was explored and all septations were divided. The wound was copiously irrigated. There was a full-thickness rotator cuff tear, some of the joint was easily exposed. Again copious amounts of fluid were used to irrigate the joint as well as the abscess cavity. A curette was used to curette the subcutaneous tissue it was noted that all of the remaining tissue was healthy and bleeding. There is no evidence of any necrotic tissue. After debridement was complete, 2-0 Monocryl was used to close some of the subcutaneous tissue and 2-0 nylon was used in simple interrupted fashion to close the skin there prior to completely closing the skin packing material was placed into the abscess cavity. There was 1 strip of packing material that was placed. A sterile dressing was applied consisting of Xeroform plain gauze and foam tape. Half percent Marcaine plain was used to inject into the incision site prior to placing the dressing. The patient was awoken and taken to the PACU in stable condition. All counts were correct at the end of the case. There were no complications. Multiple cultures were obtained in the case. The patient will be admitted to the hospitalist and the wound will be repacked in 2 days. Recommend IV antibiotics for at least 24 hours and then transition to oral antibiotics per the admitting team.
--- NOTE | 2024-06-18 00:30 | ANESTHESIA POST OP EVALUATION ---
Anesthesia Post Eval Post Anesthesia Eval Vitals: Last Vital Signs Temp 37 C 06/18/24 00:25 Pulse 79 06/18/24 00:25 Resp 18 06/18/24 00:25 BP 106/71 06/18/24 00:25 Pulse Ox 96 06/18/24 00:25 CV Function Including HR & BP: Stable Pain Control: Satisfactory Nausea & Vomiting: Negative Mental Status: Baseline Respiratory Status: Airway Patent Hydration Status: Satisfactory Anesthesia Complications: None
[2024-06-18] MEDS: lamoTRIgine 100 MG TABLET PO SCH ×2 (01:00→21:57)
[2024-06-18] MEDS: BACLOFEN 10 MG TABLET PO SCH (01:00)
[2024-06-18] MEDS: SODIUM CHLORIDE FLUSH 0.9% 10 ML SYRINGE IVP SCH (01:30)
[2024-06-18] MEDS: SODIUM CHLORIDE 0.9% 500 ML IV ONE (02:34)
[2024-06-18] MEDS: VANCOMYCIN INJ 1 GM in SODIUM CHLORIDE 0.9% 250 ML IV ONE (03:17)
[2024-06-18] MEDS: PIPERACILLIN/TAZOBACTAM 3.375 GM in SODIUM CHLORIDE 0.9% MINIBAG 100 ML IV STA (03:17)
[2024-06-18] MEDS: NS W/20 MEQ KCL 1,000 ML IV SCH (03:18)
[2024-06-18] MEDS: LACTATED RINGERS 1,000 ML IV SCH ×2 (03:30→13:58)
[2024-06-18] MEDS ORDERED: PIPERACILLIN/TAZOBACTAM 3.375 GM in SODIUM CHLORIDE 0.9% MINIBAG 100 ML IV SCH (05:00)
[2024-06-18 05:47] LABS: BASOPHILS # (AUTO) 0.1 10^3/uL (0.0-0.1); BASOPHILS % (AUTO) 0.6 %; EOSINOPHILS % (AUTO) 0.3 %; HCT - HEMATOCRIT 30.8 % (37.0-47.0); HGB - HEMOGLOBIN 9.5 g/dL (12.0-16.0); LYMPHOCYTES # (AUTO) 0.8 10^3/uL (1.5-3.5); LYMPHOCYTES % (AUTO) 9.8 %; MEAN CORPUSCULAR HEMOGLOBIN 26.2 pg (27.0-31.0); MEAN CORPUSCULAR HGB CONC 30.8 g/dL (32.0-36.0); MEAN CORPUSCULAR VOLUME 85.1 fL (81.0-99.0); MEAN PLATELET VOLUME 10.5 fL (7.9-10.8); MONOCYTES # (AUTO) 0.7 10^3/uL (0.0-1.0); MONOCYTES % (AUTO) 9.2 %; NEUTROPHILS # (AUTO) 6.2 10^3/uL (1.5-6.6); NEUTROPHILS % (AUTO) 78.9 %; PLT - PLATELET COUNT 250 10^3/uL (130-450); RED BLOOD COUNT 3.62 10^6/uL (4.20-5.40); WHITE BLOOD COUNT 7.8 x10^3/uL (4.8-10.8)
[2024-06-18 06:04] LABS: CALCIUM 7.8 mg/dL (8.5-10.3); CREATININE 0.6 mg/dL (0.6-1.3); POTASSIUM 3.4 mmol/L (3.5-4.5)
[2024-06-18] MEDS: ACETAMINOPHEN 500 MG TABLET PO SCH (06:27)
[2024-06-18] MEDS ORDERED: CLINDAMYCIN 900 MG/50 ML 50 ML IV SCH (07:00)
[2024-06-18] MEDS: CLINDAMYCIN 900 MG/50 ML 900 MG/50 ML BAG IV SCH (08:30)
[2024-06-18] MEDS: DOCUSATE SODIUM 100 MG CAPSULE PO SCH (08:37)
[2024-06-18 09:29] LABS: MAGNESIUM 1.8 mg/dL (1.7-2.3); PHOSPHORUS 3.8 mg/dL (2.5-5.0)
[2024-06-18 09:32] LABS: PREALBUMIN < 3 mg/dL (17-34)
--- NOTE | 2024-06-18 11:28 | PROVIDER PROGRESS NOTE ---
Subjective Prog Note Date Prog Note Date: 06/18/24 Prog Note Time: 11:10 Subjective Pt reports feeling: No change Subjective: Patient is alert and oriented in no obvious distress, complaining only of right shoulder pain, about 9/10, following surgery to clean and debride preexisting abscess. Patient states she has associated weakness in the right arm, limited due to the existing pain and wound bandaging. Patient currently denying any numbness, nausea, vomiting, diarrhea, abdominal pain, or other acute complaints. Current Medications Current Medications Current Medications: Current Medications Generic Name Dose Route Start Last Admin Trade Name Freq PRN Reason Stop Dose Admin Acetaminophen 1,000 mg 06/18/24 06:00 06/18/24 06:27 Acetaminophen 500 Mg Tablet PO 1,000 mg TID MY Administration Baclofen 20 mg 06/17/24 22:00 06/18/24 06:29 Baclofen 10 Mg Tablet PO 20 mg TID MY Administration Docusate Sodium 100 mg 06/18/24 09:00 06/18/24 08:37 Docusate Sodium 100 Mg Capsule PO Not Given BID MY Clindamycin/Sodium Chloride 900 mg in 50 mls @ 50 mls/hr 06/18/24 08:00 06/18/24 09:40 Cleocin 900 Mg/50 Ml IV Infused Q8H MY Infusion Lamotrigine 400 mg 06/17/24 22:00 06/18/24 01:00 Lamotrigine 100 Mg Tablet PO Not Given HS MY Ondansetron HCl 4 mg 06/17/24 21:51 Ondansetron 4 Mg/2 Ml Vial IVP Q6HR PRN Nausea / Vomiting Sodium Chloride 10 ml 06/17/24 21:51 Sodium Chloride Flush 0.9% 10 Ml Syringe IVP PRN PRN NEEDED PER PROVIDER ORDERS Sodium Chloride 10 ml 06/18/24 01:00 06/18/24 08:36 Sodium Chloride Flush 0.9% 10 Ml Syringe IVP 10 ml 0100,0900,1700 MY Administration Objective Vital Signs/Intake & Output Reviewed Vital Signs: Yes Vital Signs: Vital Signs x48h Temp Pulse Resp BP Pulse Ox O2 Flow Rate 06/18/24 09:07 36.4 C L 65 18 96/51 L 95 06/18/24 08:50 95 06/18/24 05:52 36.5 C 64 16 101/54 L 98 1 06/18/24 03:29 36.1 C L 66 20 110/55 L 98 1 Intake & Output: Intake & Output 06/16/24 06/17/24 06/18/24 06/19/24 05:59 05:59 05:59 05:59 Intake Total 4130 / 4130 918 / 918 Output Total 1475 / 1475 Balance 2655 / 2655 918 / 918 Weight (kg) 67 kg Objective General Appearance: positive No acute distress and Alert Eyes Bilateral: positive Normal inspection and PERRL Respiratory: positive Chest non-tender, No respiratory distress and Breath sounds nml; negative Wheezes, Rales or Rhonchi Cardiovascular: positive Regular rate & rhythm, No murmur and No gallop Abdomen: positive Non-tender, Nml bowel sounds and No distention; negative Tenderness Skin: positive Color nml Extremities: positive Full ROM (ROM in right arm only limited by patient's pain.); negative Non-tender (Right arm/shoulder tender due to surgical site.) Neurologic/Psychiatric: positive Oriented x3, CN's nml (2-12) and Motor nml Lab Results 06/18/24 04:57 06/18/24 04:57 Other Labs: Lab Results x24hrs 06/18/24 06/18/24 06/17/24 Range/Units 04:57 01:34 20:50 WBC 7.8 (4.8-10.8) x10^3/uL RBC 3.62 L (4.20-5.40) 10^6/uL Hgb 9.5 L (12.0-16.0) g/dL Hct 30.8 L (37.0-47.0) % MCV 85.1 (81.0-99.0) fL MCH 26.2 L (27.0-31.0) pg MCHC 30.8 L (32.0-36.0) g/dL RDW 15.0 (12.0-15.0) % Plt Count 250 (130-450) 10^3/uL MPV 10.5 (7.9-10.8) fL Neut # (Auto) 6.2 (1.5-6.6) 10^3/uL Lymph # (Auto) 0.8 L (1.5-3.5) 10^3/uL Crane # (Auto) 0.7 (0.0-1.0) 10^3/uL Eos # (Auto) 0.0 (0.0-0.7) 10^3/uL Baso # (Auto) 0.1 (0.0-0.1) 10^3/uL Absolute Nucleated RBC 0.00 x10^3/uL Nucleated RBC % 0.0 /100WBC ESR (0-30) mm/Hr Sodium 139 (135-145) mmol/L Potassium 3.4 L (3.5-4.5) mmol/L Chloride 108 (101-111) mmol/L Carbon Dioxide 25 (21-32) mmol/L Anion Gap 6.0 (6-13) BUN 9 (6-20) mg/dL Creatinine 0.6 (0.6-1.3) mg/dL Estimated GFR (MDRD) 105 (>89) Glucose 107 H (74-104) mg/dL POC Whole Bld Glucose 133 (70-100) mg/dL Lactic Acid (0.5-2.2) mmol/L Calcium 7.8 L (8.5-10.3) mg/dL Phosphorus 3.8 (2.5-5.0) mg/dL Magnesium 1.8 (1.7-2.3) mg/dL Total Bilirubin (0.2-1.0) mg/dL AST (10-42) IU/L ALT (10-60) IU/L Alkaline Phosphatase (42-121) IU/L C-Reactive Protein 27.5 H (<0.5) mg/dL Total Protein (6.4-8.9) g/dL Albumin (3.2-5.5) g/dL Globulin (2.1-4.2) g/dL Albumin/Globulin Ratio (1.0-2.2) Prealbumin < 3 L (17-34) mg/dL Triglycerides 77 mg/dL Urine Color YELLOW Urine Clarity CLEAR (CLEAR) Urine pH 6.0 (5.0-7.5) PH Ur Specific [place] 1.010 (1.002-1.030) Urine Protein TRACE (NEGATIVE) mg/dL Urine Glucose (UA) NEGATIVE (NEGATIVE) mg/dL Urine Ketones NEGATIVE (NEGATIVE) mg/dL Urine Occult Blood NEGATIVE (NEGATIVE) Urine Nitrite NEGATIVE (NEGATIVE) Urine Bilirubin NEGATIVE (NEGATIVE) Urine Urobilinogen 1 (NORMAL) (NORMAL) E.U./dL Ur Leukocyte Esterase NEGATIVE (NEGATIVE) Ur Microscopic Review NOT INDICATED Urine Culture Comments NOT INDICATED 06/17/24 Range/Units 19:00 WBC 8.2 (4.8-10.8) x10^3/uL RBC 3.60 L (4.20-5.40) 10^6/uL Hgb 9.4 L (12.0-16.0) g/dL Hct 29.6 L (37.0-47.0) % MCV 82.2 (81.0-99.0) fL MCH 26.1 L (27.0-31.0) pg MCHC 31.8 L (32.0-36.0) g/dL RDW 14.7 (12.0-15.0) % Plt Count 271 (130-450) 10^3/uL MPV 10.2 (7.9-10.8) fL Neut # (Auto) 6.4 (1.5-6.6) 10^3/uL Lymph # (Auto) 0.9 L (1.5-3.5) 10^3/uL Crane # (Auto) 0.8 (0.0-1.0) 10^3/uL Eos # (Auto) 0.0 (0.0-0.7) 10^3/uL Baso # (Auto) 0.0 (0.0-0.1) 10^3/uL Absolute Nucleated RBC 0.00 x10^3/uL Nucleated RBC % 0.0 /100WBC ESR 67 H (0-30) mm/Hr Sodium 134 L (135-145) mmol/L Potassium 3.5 (3.5-4.5) mmol/L Chloride 102 (101-111) mmol/L Carbon Dioxide 26 (21-32) mmol/L Anion Gap 6.0 (6-13) BUN 12 (6-20) mg/dL Creatinine 0.5 L (0.6-1.3) mg/dL Estimated GFR (MDRD) 130 (>89) Glucose 124 H (74-104) mg/dL POC Whole Bld Glucose (70-100) mg/dL Lactic Acid 0.7 (0.5-2.2) mmol/L Calcium 8.0 L (8.5-10.3) mg/dL Phosphorus (2.5-5.0) mg/dL Magnesium (1.7-2.3) mg/dL Total Bilirubin 0.7 (0.2-1.0) mg/dL AST 15 (10-42) IU/L ALT 12 (10-60) IU/L Alkaline Phosphatase 104 (42-121) IU/L C-Reactive Protein 27.3 H (<0.5) mg/dL Total Protein 5.3 L (6.4-8.9) g/dL Albumin 2.8 L (3.2-5.5) g/dL Globulin 2.5 (2.1-4.2) g/dL Albumin/Globulin Ratio 1.1 (1.0-2.2) Prealbumin (17-34) mg/dL Triglycerides mg/dL Urine Color Urine Clarity (CLEAR) Urine pH (5.0-7.5) PH Ur Specific [place] (1.002-1.030) Urine Protein (NEGATIVE) mg/dL Urine Glucose (UA) (NEGATIVE) mg/dL Urine Ketones (NEGATIVE) mg/dL Urine Occult Blood (NEGATIVE) Urine Nitrite (NEGATIVE) Urine Bilirubin (NEGATIVE) Urine Urobilinogen (NORMAL) E.U./dL Ur Leukocyte Esterase (NEGATIVE) Ur Microscopic Review Urine Culture Comments Diagnostic Imaging Diagnostic Imaging Results: positive See rad report ABX Reporting Has patient been on IV antibiotics over the past 48 hours?: No Sepsis Event Note (H) Evaluation Current Stage of Sepsis: Sepsis Possible source of Sepsis: positive Bone/Joint, Skin/soft tissue and Wound Confirmed Source and Organism (if known) of Sepsis: MRSA blood culture Sepsis Criteria Sepsis Criteria: Suspected or Documented Assessment/Plan Problem List (1) Abscess of right shoulder: Impression: Last night, at approximately 11pm, ortho performed cleaning and debridement of abscess and packed the wound. Patient will be on IV antibiotics for 24 hours due to procedure and positive blood cultures for MRSA. After 24 hours, patient is to be switched to oral antibiotics. In two days, the wound dressing and packing will be replaced by ortho's PA. Will reassess the wound for healing and adjust treatment if necessary. It was reported that ortho will be out of town, so if patient spirals, she may need to be transferred out. Ortho's PA will be in contact with ortho if this becomes necessary. (2) Sepsis: Impression: Blood cultures came back positive for MRSA. ECHO ordered to assess for infective endocarditis. No current signs of septic shock, end organ damage, or other acute complications. Patient currently being treated with IV antibiotics. Will continue to monitor and treat as necessary. Qualifiers: Sepsis type: methicillin resistant Staphylococcus aureus Sepsis acute organ dysfunction status: without acute organ dysfunction Qualified Code(s): A 41.02 - Sepsis due to Methicillin resistant Staphylococcus aureus (3) Shoulder pain: Impression: Patient is currently complaining of 9/10 pain due to chronic pain and abscess procedure. Chronic pain is from full thickness rotator cuff tear. Patient was prescribed scheduled doses of toradol and motrin for acute pain and PRN dilaudid and oxycodone for chronic/ongoing pain as needed. Will reassess and adjust if needed. Qualifiers: Chronicity: unspecified Laterality: right Qualified Code(s): M25.511 - Pain in right shoulder (4) Hypokalemia: Impression: Patient blood work showed minor hypokalemia. 40 po K administered. Will reevaluate and treat as necessary tomorrow. (5) On total parenteral nutrition (TPN): Impression: Patient is on [facility] TPN due to hx of gastric surgery. Patient had resupply delivered recently before being admitted to the hospital. Discussed with physician scientist about utilizing patient's stock to avoid her needing to waste it.
--- NOTE | 2024-06-18 11:41 | PHARMACY PROGRESS NOTE ---
Best Possible Medication History Admit Date and Time: 06/17/24 210498 Home Medications Medication Instructions Recorded Confirmed Type albuterol sulfate 90 mcg/actuation 1 - 2 puff IH PRN PRN Shortness Of 06/13/21 06/18/24 History aerosol inhaler (Ventolin HFA) Air/Wheezing cetirizine 10 mg tablet 10 mg PO HS 06/13/21 06/18/24 History duloxetine 60 mg capsule,delayed 120 mg PO DAILY 06/13/21 06/18/24 History release (Cymbalta) lamotrigine 200 mg tablet 400 mg PO HS 06/13/21 06/18/24 History (Lamictal) montelukast 10 mg tablet 1 tab PO QPM 06/13/21 06/18/24 History gabapentin 300 mg capsule 300 mg ORAL TID 11/05/22 06/18/24 History biotin 5,000 mcg-lutein 10 mg 2 tab PO DAILY 06/13/23 06/18/24 History tablet (Biotin Plus) hydroxyzine HCl 50 mg tablet 100 mg PO TID PRN Anxiety 06/13/23 06/18/24 History amino acids 5 %-dextrose 15 2,000 ml IV 0 06/21/23 06/18/24 Rx %-electrolytes intravenous solution (Clinimix E) mvi, adult no.4 with vit K 3300 10 ml IV 189906/21/23 06/18/24 Rx unit-150 mcg/10 mL intravenous solution (Infuvite Adult) trace elements Zn 3 mg-Cu 0.3 1 ml IV 189906/21/23 06/18/24 Rx mg-Mn 55 mcg-Se 60 mcg/mL IV solution (Tralement) baclofen 20 mg tablet 20 mg PO DAILY 06/17/24 06/18/24 History buprenorphine 20 mcg/hour weekly 1 patch transdermal Q7D 06/17/24 06/18/24 History transdermal patch buspirone 5 mg tablet 5 mg PO DAILY 06/17/24 06/18/24 History dextroamphetamine sulfate 20 mg 20 mg PO BID 06/17/24 06/18/24 History tablet dextroamphetamine-amphetamine 15 15 mg PO QPM 06/17/24 06/18/24 History mg tablet fluticasone 500 mcg-salmeterol 50 1 inh inhalation DAILY 06/17/24 06/18/24 History mcg/dose blistr powdr for inhalation (Sudhakarxela Inhub) fluticasone propionate 50 1 spray intranasal BID 06/17/24 06/18/24 History mcg/actuation nasal spray,suspension furosemide 40 mg tablet 40 mg PO DAILY 06/17/24 06/18/24 History meloxicam 15 mg tablet 15 mg PO DAILY 06/17/24 06/18/24 History cyclobenzaprine 10 mg tablet 5 - 10 mg PO TID PRN muscle spasms 06/18/24 06/18/24 History Processed by: Pharmacy (Medication reconciliation completed by pharmacy resource techWesley) Medications reviewed in ED?: No Medication History completed: Yes Patient Interview: Completed Secondary Source(s): Pharmacy records and Insurance records (patient last filled lamotrigine for 100 day supply on February 14 per insurance, not 100% adherent, did mention that her last dose was 4 days ago ) [facility] Statement: As the person ultimately responsible for medication therapy, providers are able to order a medication from an existing home medication list in [facility] via the "Reconcile Routine" prior to Confirmation of that medication by technical support intern. Such practice is discouraged except when the physician, in their clinical judgment, deems that a medical need exists for a medication without regard to previous use.
[2024-06-18] MEDS: KETOROLAC 15 MG/ML VIAL IVP STA (11:47)
[2024-06-18] MEDS: oxyCODONE 5 MG TABLET PO PRN (12:24)
[2024-06-18] MEDS: CEFEPIME 2 GM in SODIUM CHLORIDE 0.9% MINIBAG 100 ML IV SCH (12:24)
[2024-06-18 12:48] LABS: HCG UR QUAL NEGATIVE
--- NOTE | 2024-06-18 13:02 | POST OP PROGRESS NOTE ---
Subjective General Admit Date: 06/17/24 Procedure Date: 06/17/24 Post Op Days: 1 Procedure Performed: Incision and debridement right shoulder abscess Other Other Information/Narrative: 53 yo female s/p I & D R shoulder abscess. Pain improved from prior to debridement. Denies f/c/ns. Denies chest pain or shortness of breath. Blood cultures returned + MRSA. Cultures from surgery pending. Ortho Surgical Progress Note Problem List Problem List: R shoulder abscess and MRSA septicemia - cultures pending from OR. Recommend continued IV antibiotics with infectious disease consultation Will do a wound check and replace packing in 2 days. Sling for comfort. Consider Aspirin if patient is able to take for DVT prophylaxis and SCD. Will schedule f/u apt for 2 weeks for suture removal Exam Exam PE: Malnourished female in NAD. Afebrile since surgery. Dressing is clean/dry/intact. No surrounding erythema or warmth. Able to move shoulder without joint irritability SILT r/u/m/axillary Fires delt/epl/fpl/io Rad pulse 2+ and brisk cap refill.
[2024-06-18] MEDS: ENOXAPARIN 40 MG/0.4 ML SYRINGE SUBQ SCH (13:53)
[2024-06-18] MEDS: POTASSIUM CHLORIDE 20 MEQ TABLET PO ONE (13:53)
[2024-06-18] MEDS: HYDROmorphone 0.5 MG/0.5 ML SYRINGE IVP PRN (14:02)
[2024-06-18] MEDS: GABAPENTIN 300 MG CAPSULE PO SCH (14:09)
[2024-06-18] MEDS: DAPTOmycin 500 MG VIAL IVP SCH ×2 (14:50→17:06)
[2024-06-18] MEDS: BUPRENORPHINE TOP SCH (14:50)
[2024-06-18] MEDS: IBUPROFEN 600 MG TABLET PO SCH (18:33)
[2024-06-18] MEDS ORDERED: [UNRECOGNIZED DRUG - NUTRITION] IV SCH (21:00)
[2024-06-18] MEDS: CETIRIZINE 10 MG TABLET PO SCH (21:58)
[2024-06-18] MEDS: MONTELUKAST 10 MG TABLET PO SCH (21:58)
[2024-06-19 05:26] LABS: BASOPHILS # (AUTO) 0.1 10^3/uL (0.0-0.1); BASOPHILS % (AUTO) 0.8 %; EOSINOPHILS # (AUTO) 0.3 10^3/uL (0.0-0.7); EOSINOPHILS % (AUTO) 3.8 %; HCT - HEMATOCRIT 27.8 % (37.0-47.0); HGB - HEMOGLOBIN 8.5 g/dL (12.0-16.0); LYMPHOCYTES # (AUTO) 0.7 10^3/uL (1.5-3.5); LYMPHOCYTES % (AUTO) 11.3 %; MEAN CORPUSCULAR HGB CONC 30.6 g/dL (32.0-36.0); MEAN PLATELET VOLUME 10.1 fL (7.9-10.8); MONOCYTES # (AUTO) 0.5 10^3/uL (0.0-1.0); MONOCYTES % (AUTO) 7.3 %; NEUTROPHILS % (AUTO) 75.6 %; PLT - PLATELET COUNT 272 10^3/uL (130-450); RED BLOOD COUNT 3.27 10^6/uL (4.20-5.40); RED CELL DISTRIBUTION WIDTH 15.5 % (12.0-15.0); WHITE BLOOD COUNT 6.6 x10^3/uL (4.8-10.8)
[2024-06-19 05:44] LABS: CALCIUM 8.1 mg/dL (8.5-10.3); CREATININE 0.7 mg/dL (0.6-1.3); CRP - C-REACTIVE PROTEIN 27.5 mg/dL (<0.5); POTASSIUM 3.8 mmol/L (3.5-4.5)
[2024-06-19] MEDS ORDERED: [UNRECOGNIZED DRUG - OTHER] INH SCH (09:00)
[2024-06-19] MEDS: FUROSEMIDE 40 MG TABLET PO SCH (09:22)
[2024-06-19] MEDS: DULoxetine 60 MG CAPSULE PO SCH (09:23)
[2024-06-19] MEDS: busPIRone 5 MG TABLET PO SCH (09:23)
[2024-06-19] MEDS: polyethylene glycoL 3350 17 GM PACKET PO SCH (09:25)
--- NOTE | 2024-06-19 11:12 | PROVIDER PROGRESS NOTE ---
Subjective Prog Note Date Prog Note Date: 06/19/24 Prog Note Time: 10:30 Subjective Pt reports feeling: No change Subjective: No significant changes noted. On initial impression, the patient is in no obvious distress, appearing calm and relaxed. Her only complaint is the right shoulder pain which she is currently being treated for. She does state her current pain is worse than yesterday, but also mentioned not receiving any pain medications yet. No changes are noted to her right arm strength or range of motion, both limited by the pain. She denies any other complaints to include fever, chills, chest pain, shortness of breath, nausea, vomiting, abdominal pain/tenderness/distention. She reports no changes to her appetite or bowel movements. Patient asked about how long she is expected to be in the hospital, and does appear motivated to be compliant with medical orders and recommendations in order to expedite her discharge so she can go home. Current Medications Current Medications Current Medications: Current Medications Generic Name Dose Route Start Last Admin Trade Name Freq PRN Reason Stop Dose Admin Acetaminophen 1,000 mg 06/18/24 06:00 06/19/24 05:38 Acetaminophen 500 Mg Tablet PO 1,000 mg TID MY Administration Baclofen 20 mg 06/17/24 22:00 06/19/24 05:38 Baclofen 10 Mg Tablet PO 20 mg TID MY Administration Budesonide 0.5 mg 06/18/24 19:00 Budesonide 0.5 Mg/2 Ml Neb INH RTBID MY Buspirone HCl 5 mg 06/19/24 09:00 06/19/24 09:23 Buspirone 5 Mg Tablet PO 5 mg DAILY MY Administration Cetirizine HCl 10 mg 06/18/24 21:00 06/18/24 21:58 Cetirizine 10 Mg Tablet PO 10 mg HS MY Administration Cyclobenzaprine HCl 5 mg 06/18/24 14:01 Cyclobenzaprine 10 Mg Tablet PO TID PRN muscle spasms Daptomycin 500 mg 06/18/24 14:45 06/18/24 14:50 Daptomycin 500 Mg Vial IVP 500 mg DAILY MY Administration Docusate Sodium 100 mg 06/18/24 09:00 06/19/24 09:23 Docusate Sodium 100 Mg Capsule PO 100 mg BID MY Administration Duloxetine HCl 120 mg 06/19/24 09:00 06/19/24 09:23 Duloxetine 60 Mg Capsule PO 120 mg DAILY MY Administration Enoxaparin Sodium 40 mg 06/18/24 13:00 06/19/24 09:22 Enoxaparin 40 Mg/0.4 Ml Syringe SUBQ 40 mg DAILY MY Administration Formoterol Fumarate 20 mcg 06/18/24 19:00 Formoterol Fumarate Neb 20 Mcg/2 Ml INH RTBID MY Furosemide 40 mg 06/19/24 09:00 06/19/24 09:22 Furosemide 40 Mg Tablet PO 40 mg DAILY MY Administration Gabapentin 300 mg 06/18/24 14:00 06/19/24 05:39 Gabapentin 300 Mg Capsule PO 300 mg TID MY Administration Hydromorphone HCl 0.5 mg 06/18/24 11:25 06/18/24 14:02 Hydromorphone 0.5 Mg/0.5 Ml Syringe IVP 0.5 mg Q2H PRN Administration Severe Pain (Level 7-10) Hydroxyzine Pamoate 100 mg 06/18/24 13:02 Hydroxyzine Pamoate 25 Mg Capsule PO TID PRN Anxiety Clindamycin/Sodium Chloride 900 mg in 50 mls @ 50 mls/hr 06/18/24 08:00 06/19/24 09:03 Cleocin 900 Mg/50 Ml IV Infused Q8H MY Infusion Cefepime HCl 2 gm/ Sodium 100 mls @ 200 mls/hr 06/18/24 12:00 06/19/24 09:21 Chloride IV 200 mls/hr BID MY Administration Lactated Ringer's 1,000 mls @ 75 mls/hr 06/18/24 14:00 06/18/24 22:05 Lr IV 75 mls/hr .[id number] MY Administration Ibuprofen 600 mg 06/18/24 18:00 06/19/24 05:38 Ibuprofen 600 Mg Tablet PO 06/20/24 17:59 600 mg Q6HR MY Administration Lamotrigine 400 mg 06/19/24 21:00 Lamotrigine 100 Mg Tablet PO HS MY Montelukast Sodium 10 mg 06/18/24 21:00 06/18/24 21:58 Montelukast 10 Mg Tablet PO 10 mg QPM MY Administration Ondansetron HCl 4 mg 06/17/24 21:51 Ondansetron 4 Mg/2 Ml Vial IVP Q6HR PRN Nausea / Vomiting Oxycodone HCl 5 mg 06/18/24 11:25 06/18/24 12:24 Oxycodone 5 Mg Tablet PO 5 mg Q4HR PRN Administration Moderate Pain (Level 4-6) Tpn From Home 1 each 06/18/24 21:00 IV HS MY Buprenorphine 20 Mcg 1 each 06/18/24 15:00 06/18/24 14:50 /Hour Patch Weekly TOP Not Given Q7D MY Polyethylene Glycol 17 gm 06/19/24 09:00 06/19/24 09:25 Polyethylene Glycol 3350 17 Gm Packet PO Not Given DAILY MY Sodium Chloride 10 ml 06/17/24 21:51 Sodium Chloride Flush 0.9% 10 Ml Syringe IVP PRN PRN NEEDED PER PROVIDER ORDERS Sodium Chloride 10 ml 06/18/24 01:00 06/19/24 08:04 Sodium Chloride Flush 0.9% 10 Ml Syringe IVP 10 ml 0100,0900,1700 MY Administration Objective Vital Signs/Intake & Output Reviewed Vital Signs: Yes Vital Signs: Vital Signs x48h Temp Pulse Resp BP BP Pulse Ox 06/19/24 08:30 36.4 C L 72 16 122/62 94 06/19/24 06:00 36.7 C 78 20 122/64 94 Intake & Output: Intake & Output 06/17/24 06/18/24 06/19/24 06/20/24 05:59 05:59 05:59 05:59 Intake Total 4130 / 4130 1996 350 / 350 Output Total 1475 / 1475 775 / 775 225 / 225 Balance 2655 / 2655 1222 / 1222 125 / 125 Weight (kg) 67 kg Objective General Appearance: positive No acute distress and Alert Eyes Bilateral: positive Normal inspection and PERRL ENT: positive No signs of dehydration Neck: positive Nml inspection Respiratory: positive Chest non-tender, No respiratory distress and Breath sounds nml; negative Wheezes, Rales or Rhonchi Cardiovascular: positive Regular rate & rhythm, No murmur and No gallop; negative Irregularly irregular or Tachycardia Abdomen: positive Non-tender, Nml bowel sounds and No distention; negative Tenderness or Guarding Skin: positive Color nml Extremities: positive Nml appearance and Other (Limited ROM in right arm due to preexisting rotator cuff tear and current shoulder abscess being treated.); negative Non-tender, Full ROM or Calf tenderness Neurologic/Psychiatric: positive Oriented x3, CN's nml (2-12), Motor nml, Sensation nml and Mood/affect nml Lab Results 06/19/24 05:16 06/19/24 05:16 Other Labs: Lab Results x24hrs 06/19/24 06/18/24 06/18/24 Range/Units 05:16 12:10 04:57 WBC 6.6 (4.8-10.8) x10^3/uL RBC 3.27 L (4.20-5.40) 10^6/uL Hgb 8.5 L (12.0-16.0) g/dL Hct 27.8 L (37.0-47.0) % MCV 85.0 (81.0-99.0) fL MCH 26.0 L (27.0-31.0) pg MCHC 30.6 L (32.0-36.0) g/dL RDW 15.5 H (12.0-15.0) % Plt Count 272 (130-450) 10^3/uL MPV 10.1 (7.9-10.8) fL Neut # (Auto) 5.0 (1.5-6.6) 10^3/uL Lymph # (Auto) 0.7 L (1.5-3.5) 10^3/uL [place] # (Auto) 0.5 (0.0-1.0) 10^3/uL Eos # (Auto) 0.3 (0.0-0.7) 10^3/uL Baso # (Auto) 0.1 (0.0-0.1) 10^3/uL Absolute Nucleated RBC 0.00 x10^3/uL Nucleated RBC % 0.0 /100WBC Sodium 140 (135-145) mmol/L Potassium 3.8 (3.5-4.5) mmol/L Chloride 110 (101-111) mmol/L Carbon Dioxide 26 (21-32) mmol/L Anion Gap 4.0 L (6-13) BUN 11 (6-20) mg/dL Creatinine 0.7 (0.6-1.3) mg/dL Estimated GFR (MDRD) 88 L (>89) Glucose 77 (74-104) mg/dL Calcium 8.1 L (8.5-10.3) mg/dL Total Creatine Kinase 13 L 31 (30-223) IU/L C-Reactive Protein 27.5 H (<0.5) mg/dL Urine HCG, Qual NEGATIVE Diagnostic Imaging Diagnostic Imaging Results: positive See rad report ABX Reporting Has patient been on IV antibiotics over the past 48 hours?: No Sepsis Event Note (H) Evaluation Current Stage of Sepsis: Sepsis Possible source of Sepsis: positive Bone/Joint, Skin/soft tissue and Wound Sepsis Criteria Sepsis Criteria: Suspected or Documented Assessment/Plan Problem List (1) Abscess of right shoulder: Impression: There is no significant changes to report. The abscess is primarily being managed by ortho. On the at approximately 11pm, the abscess was cleaned with the wound packed. Ortho has recommended it to be repacked in two days (which will be tomorrow on the ), which should be performed by their PA. Will continue to monitor the patient and consult with ortho to adjust treatment plan if necessary. (2) Sepsis: Impression: Due to positive MRSA blood cultures, patient is being treated with IV. Patient had a retirement tunneled CVC line which was suspected as a possible source of the infection. The CVC was removed and an IV line established to adminster the antibiotics. Infectious disease will be consulted regarding her treatment if patient is not responsive to current treatment. She will be on IV antibiotics at least through the weekend. New blood cultures will be drawn Friday and we will treatment as necessary pending the results. Currently, the patient is not presenting with any obvious or symptomatic complaints related to her bacteremia. She has been afebrile with all other vitals within normal limits and not significant concerns regarding her blood work. Will continue to monitor and treat if necessary. Qualifiers: Sepsis acute organ dysfunction status: without acute organ dysfunction Sepsis type: methicillin resistant Staphylococcus aureus Qualified Code(s): A 41.02 - Sepsis due to Methicillin resistant Staphylococcus aureus (3) Shoulder pain: Impression: Patient has chronic shoulder pain due to torn rotator cuff. She is also experiencing pain from the abscess. Patient has scheduled and PRN pain management medication orders in place. There are no current issues or concerns to report. Will continue to monitor and reevaluate patient's pain and adjust management as needed if any issues arise. Qualifiers: Chronicity: unspecified Laterality: right Qualified Code(s): M25.511 - Pain in right shoulder (4) Hypokalemia: Impression: After oral K administered yesterday, current potassium level is within normal limits. Will continue to monitor and treat if necessary. (5) On total parenteral nutrition (TPN): Impression: Patient was on retirement TPN via CVC due to hx of gastric surgery. Her CVC had to be removed due to being a possible source of her MRSA infection. Patient is able to eat but it is suspected her total intake and overall nutrition will be limited. We hope to have a new CVC established next week to resume her standard TPN administration, but that will be dependant on her bacteremia/blood culture results which should be performed on Friday. Will continue to monitor for signs of poor nutrition and encourage patient to intake what she can until TPN can be resumed.
[2024-06-19] MEDS: SODIUM CHLORIDE FLUSH 0.9% 10 ML SYRINGE IVP PRN (12:57)
[2024-06-19] MEDS: FORMOTEROL FUMARATE NEB 20 MCG/2 ML INH SCH (19:52)
[2024-06-19] MEDS: BUDESONIDE 0.5 MG/2 ML NEB INH SCH (19:52)
[2024-06-19] MEDS: lamoTRIgine 100 MG TABLET PO SCH (21:48)
[2024-06-20] MEDS: ONDANSETRON 4 MG/2 ML VIAL IVP PRN (05:38)
[2024-06-20 05:40] LABS: BASOPHILS # (AUTO) 0.1 10^3/uL (0.0-0.1); BASOPHILS % (AUTO) 1.1 %; EOSINOPHILS # (AUTO) 0.3 10^3/uL (0.0-0.7); EOSINOPHILS % (AUTO) 5.4 %; HCT - HEMATOCRIT 26.4 % (37.0-47.0); HGB - HEMOGLOBIN 8.4 g/dL (12.0-16.0); LYMPHOCYTES # (AUTO) 0.8 10^3/uL (1.5-3.5); LYMPHOCYTES % (AUTO) 13.9 %; MEAN CORPUSCULAR HGB CONC 31.8 g/dL (32.0-36.0); MEAN CORPUSCULAR VOLUME 81.7 fL (81.0-99.0); MEAN PLATELET VOLUME 9.8 fL (7.9-10.8); MONOCYTES # (AUTO) 0.4 10^3/uL (0.0-1.0); MONOCYTES % (AUTO) 6.1 %; NEUTROPHILS # (AUTO) 4.1 10^3/uL (1.5-6.6); NEUTROPHILS % (AUTO) 72.3 %; NRBC ABSOLUTE COUNT (AUTO) 0.02 x10^3/uL; NUCLEATED RED BLOOD CELLS AUTO 0.4 /100WBC; PLT - PLATELET COUNT 321 10^3/uL (130-450); RED BLOOD COUNT 3.23 10^6/uL (4.20-5.40); RED CELL DISTRIBUTION WIDTH 15.4 % (12.0-15.0); WHITE BLOOD COUNT 5.7 x10^3/uL (4.8-10.8)
[2024-06-20 05:52] LABS: CALCIUM 7.4 mg/dL (8.5-10.3); CREATININE 0.7 mg/dL (0.6-1.3); CRP - C-REACTIVE PROTEIN 24.4 mg/dL (<0.5); POTASSIUM 3.3 mmol/L (3.5-4.5)
--- NOTE | 2024-06-20 07:49 | PROVIDER PROGRESS NOTE ---
Subjective Prog Note Date Prog Note Date: 06/20/24 Subjective Pt reports feeling: No change Subjective: Report of pain varies in her shoulder. Sometimes she will not notice when her shoulder is touched, sometimes it will be excruciating pain. Current Medications Current Medications Current Medications: Current Medications Generic Name Dose Route Start Last Admin Trade Name Todq PRN Reason Stop Dose Admin Acetaminophen 1,000 mg 06/18/24 06:00 06/20/24 05:38 Acetaminophen 500 Mg Tablet PO 1,000 mg TID MY Administration Baclofen 20 mg 06/17/24 22:00 06/20/24 05:38 Baclofen 10 Mg Tablet PO 20 mg TID MY Administration Budesonide 0.5 mg 06/18/24 19:00 06/19/24 21:46 Budesonide 0.5 Mg/2 Ml Neb INH Not Given RTBID MY Buspirone HCl 5 mg 06/19/24 09:00 06/19/24 09:23 Buspirone 5 Mg Tablet PO 5 mg DAILY MY Administration Cetirizine HCl 10 mg 06/18/24 21:00 06/19/24 21:47 Cetirizine 10 Mg Tablet PO 10 mg HS MY Administration Cyclobenzaprine HCl 5 mg 06/18/24 14:01 Cyclobenzaprine 10 Mg Tablet PO TID PRN muscle spasms Daptomycin 500 mg 06/18/24 14:45 06/19/24 12:57 Daptomycin 500 Mg Vial IVP 500 mg DAILY MY Administration Docusate Sodium 100 mg 06/18/24 09:00 06/19/24 21:48 Docusate Sodium 100 Mg Capsule PO Not Given BID MY Duloxetine HCl 120 mg 06/19/24 09:00 06/19/24 09:23 Duloxetine 60 Mg Capsule PO 120 mg DAILY MY Administration Enoxaparin Sodium 40 mg 06/18/24 13:00 06/19/24 09:22 Enoxaparin 40 Mg/0.4 Ml Syringe SUBQ 40 mg DAILY MY Administration Formoterol Fumarate 20 mcg 06/18/24 19:00 06/19/24 21:47 Formoterol Fumarate Neb 20 Mcg/2 Ml INH Not Given RTBID MY Furosemide 40 mg 06/19/24 09:00 06/19/24 09:22 Furosemide 40 Mg Tablet PO 40 mg DAILY MY Administration Gabapentin 300 mg 06/18/24 14:00 06/20/24 05:38 Gabapentin 300 Mg Capsule PO 300 mg TID MY Administration Hydromorphone HCl 0.5 mg 06/18/24 11:25 06/19/24 17:04 Hydromorphone 0.5 Mg/0.5 Ml Syringe IVP 0.5 mg Q2H PRN Administration Severe Pain (Level 7-10) Hydroxyzine Pamoate 100 mg 06/18/24 13:02 Hydroxyzine Pamoate 25 Mg Capsule PO TID PRN Anxiety Clindamycin/Sodium Chloride 900 mg in 50 mls @ 50 mls/hr 06/18/24 08:00 06/20/24 01:13 Cleocin 900 Mg/50 Ml IV Infused Q8H MY Infusion Cefepime HCl 2 gm/ Sodium 100 mls @ 200 mls/hr 06/18/24 12:00 06/19/24 22:46 Chloride IV Infused BID MY Infusion Lactated Ringer's 1,000 mls @ 75 mls/hr 06/18/24 14:00 06/20/24 00:13 Lr IV 75 mls/hr .[id number] MY Administration Ibuprofen 600 mg 06/18/24 18:00 06/20/24 05:38 Ibuprofen 600 Mg Tablet PO 06/20/24 17:59 600 mg Q6HR MY Administration Lamotrigine 400 mg 06/19/24 21:00 06/19/24 21:48 Lamotrigine 100 Mg Tablet PO 400 mg HS MY Administration Montelukast Sodium 10 mg 06/18/24 21:00 06/19/24 21:47 Montelukast 10 Mg Tablet PO 10 mg QPM MY Administration Ondansetron HCl 4 mg 06/17/24 21:51 06/20/24 05:38 Ondansetron 4 Mg/2 Ml Vial IVP 4 mg Q6HR PRN Administration Nausea / Vomiting Oxycodone HCl 5 mg 06/18/24 11:25 06/18/24 12:24 Oxycodone 5 Mg Tablet PO 5 mg Q4HR PRN Administration Moderate Pain (Level 4-6) Tpn From Home 1 each 06/18/24 21:00 IV HS MY Buprenorphine 20 Mcg 1 each 06/18/24 15:00 06/18/24 14:50 /Hour Patch Weekly TOP Not Given Q7D MY Polyethylene Glycol 17 gm 06/19/24 09:00 06/19/24 09:25 Polyethylene Glycol 3350 17 Gm Packet PO Not Given DAILY [facility] Sodium Chloride 10 ml 06/17/24 21:51 06/19/24 12:57 Sodium Chloride Flush 0.9% 10 Ml Syringe IVP 10 ml PRN PRN Administration NEEDED PER PROVIDER ORDERS Sodium Chloride 10 ml 06/18/24 01:00 06/20/24 00:14 Sodium Chloride Flush 0.9% 10 Ml Syringe IVP Not Given 0100,0900,1700 [facility] Objective Vital Signs/Intake & Output Reviewed Vital Signs: Yes Vital Signs: Vital Signs x48h Temp Pulse Resp BP Pulse Ox 06/20/24 00:20 36.6 C 81 16 127/58 L 94 Intake & Output: Intake & Output 06/18/24 06/19/24 06/20/24 06/21/24 05:59 05:59 05:59 05:59 Intake Total 4130 / 4130 1996 / 1996 3554 / 3554 250 / 250 Output Total 1475 / 1475 775 / 775 1900 / 1900 525 / 525 Balance 2655 / 2655 1222 / 1222 1654 / 1654 -275 / -275 Weight (kg) 67 kg Objective General Appearance: positive No acute distress and Alert Eyes Bilateral: positive Normal inspection and PERRL ENT: positive No signs of dehydration Neck: positive Nml inspection Respiratory: positive Chest non-tender, No respiratory distress and Breath sounds nml; negative Wheezes, Rales or Rhonchi Cardiovascular: positive Regular rate & rhythm, No murmur and No gallop; negative Irregularly irregular or Tachycardia Abdomen: positive Non-tender, Nml bowel sounds and No distention; negative Tenderness or Guarding Skin: positive Color nml Extremities: positive Nml appearance and Other (Limited ROM in right arm due to preexisting rotator cuff tear and current shoulder abscess being treated.); negative Non-tender, Full ROM or Calf tenderness Neurologic/Psychiatric: positive Oriented x3, CN's nml (2-12), Motor nml, Sensation nml and Mood/affect nml Lab Results 06/20/24 05:29 06/20/24 05:29 Other Labs: Lab Results x24hrs 06/20/24 Range/Units 05:29 WBC 5.7 (4.8-10.8) x10^3/uL RBC 3.23 L (4.20-5.40) 10^6/uL Hgb 8.4 L (12.0-16.0) g/dL Hct 26.4 L (37.0-47.0) % MCV 81.7 (81.0-99.0) fL MCH 26.0 L (27.0-31.0) pg MCHC 31.8 L (32.0-36.0) g/dL RDW 15.4 H (12.0-15.0) % Plt Count 321 (130-450) 10^3/uL MPV 9.8 (7.9-10.8) fL Neut # (Auto) 4.1 (1.5-6.6) 10^3/uL Lymph # (Auto) 0.8 L (1.5-3.5) 10^3/uL [place] # (Auto) 0.4 (0.0-1.0) 10^3/uL Eos # (Auto) 0.3 (0.0-0.7) 10^3/uL Baso # (Auto) 0.1 (0.0-0.1) 10^3/uL Absolute Nucleated RBC 0.02 x10^3/uL Nucleated RBC % 0.4 /100WBC Sodium 140 (135-145) mmol/L Potassium 3.3 L (3.5-4.5) mmol/L Chloride 109 (101-111) mmol/L Carbon Dioxide 25 (21-32) mmol/L Anion Gap 6.0 (6-13) BUN 11 (6-20) mg/dL Creatinine 0.7 (0.6-1.3) mg/dL Estimated GFR (MDRD) 88 L (>89) Glucose 81 (74-104) mg/dL Calcium 7.4 L (8.5-10.3) mg/dL C-Reactive Protein 24.4 H (<0.5) mg/dL Diagnostic Imaging Diagnostic Imaging Results: positive See rad report Sepsis Event Note (H) Evaluation Current Stage of Sepsis: Sepsis Possible source of Sepsis: positive Bone/Joint, Skin/soft tissue and Wound Sepsis Criteria Sepsis Criteria: Suspected or Documented Assessment/Plan Problem List (1) Abscess of right shoulder: Impression: Underwent I&D on 06/17/2024 with wound packing. Care was transitioned to hospitalist team as there is no Ortho coverage on the weekend. Ortho PA will be by today to change the packing. Antibiotics as below. (2) Sepsis: Impression: Reported to be febrile up to 103 F, no record of this in the flowsheets. Preliminary blood cultures show staph, PCR positive for MRSA. She has allergies to penicillins into vancomycin. Maintaining broad-spectrum coverage with cefepime and daptomycin. CT upper extremity performed 06/17/2024 shows gas and rim enhancing collection. Clindamycin has been added for toxin suppression until we have final results from all cultures. Her central line has been removed. She will need a new line prior to discharge. Echocardiogram has been ordered to evaluate for endocarditis and is pending Qualifiers: Sepsis acute organ dysfunction status: without acute organ dysfunction Sepsis type: methicillin resistant Staphylococcus aureus Qualified Code(s): A 41.02 - Sepsis due to Methicillin resistant Staphylococcus aureus (3) Shoulder pain: Impression: Patient has chronic shoulder pain due to torn rotator cuff. She is also experiencing pain from the abscess. Patient has scheduled and PRN pain management medication orders in place. Qualifiers: Chronicity: unspecified Laterality: right Qualified Code(s): M25.511 - Pain in right shoulder (4) Hypokalemia: Impression: 3.3 today. 40 mEq KCl. BMP daily (5) On total parenteral nutrition (TPN): Impression: Patient was on skilled nursing TPN via CVC due to hx of gastric surgery. Her CVC had to be removed due to being a possible source of her MRSA infection. Patient is able to eat but it is suspected her total intake and overall nutrition will be limited. We hope to have a new CVC established next week to resume her standard TPN administration, but that will be dependant on her bacteremia/blood culture results which should be performed on Friday. Will continue to monitor for signs of poor nutrition and encourage patient to intake what she can until TPN can be resumed.
[2024-06-20] MEDS: POTASSIUM CHLORIDE 20 MEQ TABLET PO ONE (08:16)
[2024-06-20] MEDS: SODIUM CHLORIDE 0.9% 1,000 ML IV SCH (08:18)
--- NOTE | 2024-06-20 12:19 | POST OP PROGRESS NOTE ---
Subjective General Admit Date: 06/17/24 Procedure Date: 06/17/24 Post Op Days: 3 Procedure Performed: Incision and debridement right shoulder abscess Other Other Information/Narrative: 53 year old female who is post operative day 3 from irrigation and debridment of right shoulder for right shoulder abscess with Dr Wayne on 06/17/24. She was found to have MRSA septicemia. She reports good sleep last night and tolerable right shoulder pain. She denies chest pain, shortness of breath, nausea and emesis. Wound cultures from the operating room are pending. News[place] catheter was removed. Central line removed. Prior to development of abscess she was completing physical therapy for right rotator cuff tear at [facility]. She had limited motion and intense pain in the shoulder prior to abscess development. ABX Reporting Has patient been on IV antibiotics over the past 48 hours?: Yes Ortho Surgical Progress Note Problem List Problem List: Right shoulder abscess with MRSA septicemia - Dressing changed today, to be completed every 2 days by orthopedics with wound check - Follow up wound cultures from operating room - Continue IV antibiotics, consider infectious disease consultation per medicine team - Trend CRP daily - 24.4 today - Sling to be used as needed for comfort - DVT prophylaxis with lovenox and SCDs, ambulate and up to chair as able - Follow up with orthopedic clinic 14 days after surgery for suture removal - Pain management per medicine team Today I took down the dressings and removed the packing from the wound. Minimal drainage. No erythema or fluctuance about skin. I repacked the wound with one strip of packing material was placed in the abscess cavity. I used 1" plain packing strip. A sterile dressing was applied consisting of Xeroform, plain gauze and foam tape. Patient tolerated procedure well. Review of Systems Status of ROS: See HPI Exam Exam malnourished 53 year old female, no acute distress, comfortable in bed Dressing is clean, dry and intact. No drainage about dressing. Right shoulder skin is without erythema and fluctuance . Mild tenderness with palpation of the shoulder. Patient declines to demonstrate active range of motion to right shoulder. Pain elicited with passive flexion and abduction (she states this is chronic) Neurovascularly intact to right upper extremity
[2024-06-21 05:33] LABS: BASOPHILS # (AUTO) 0.1 10^3/uL (0.0-0.1); BASOPHILS % (AUTO) 0.9 %; EOSINOPHILS # (AUTO) 0.2 10^3/uL (0.0-0.7); EOSINOPHILS % (AUTO) 3.2 %; HCT - HEMATOCRIT 30.1 % (37.0-47.0); HGB - HEMOGLOBIN 9.4 g/dL (12.0-16.0); LYMPHOCYTES # (AUTO) 0.9 10^3/uL (1.5-3.5); LYMPHOCYTES % (AUTO) 16.2 %; MEAN CORPUSCULAR HEMOGLOBIN 25.9 pg (27.0-31.0); MEAN CORPUSCULAR HGB CONC 31.2 g/dL (32.0-36.0); MEAN CORPUSCULAR VOLUME 82.9 fL (81.0-99.0); MONOCYTES # (AUTO) 0.3 10^3/uL (0.0-1.0); MONOCYTES % (AUTO) 6.1 %; NEUTROPHILS % (AUTO) 71.3 %; PLT - PLATELET COUNT 392 10^3/uL (130-450); RED BLOOD COUNT 3.63 10^6/uL (4.20-5.40); RED CELL DISTRIBUTION WIDTH 15.6 % (12.0-15.0); WHITE BLOOD COUNT 5.6 x10^3/uL (4.8-10.8)
[2024-06-21 05:48] LABS: CALCIUM 7.5 mg/dL (8.5-10.3); CREATININE 0.7 mg/dL (0.6-1.3); CRP - C-REACTIVE PROTEIN 17.9 mg/dL (<0.5); POTASSIUM 3.6 mmol/L (3.5-4.5)
--- NOTE | 2024-06-21 08:46 | PROVIDER PROGRESS NOTE ---
Subjective Prog Note Date Prog Note Date: 06/21/24 Subjective Pt reports feeling: Improved Subjective: Resting comfortably Current Medications Current Medications Current Medications: Current Medications Generic Name Dose Route Start Last Admin Trade Name Freq PRN Reason Stop Dose Admin Acetaminophen 1,000 mg 06/18/24 06:00 06/21/24 05:17 Acetaminophen 500 Mg Tablet PO 1,000 mg TID MY Administration Baclofen 20 mg 06/17/24 22:00 06/21/24 05:17 Baclofen 10 Mg Tablet PO 20 mg TID MY Administration Buspirone HCl 5 mg 06/19/24 09:00 06/21/24 08:22 Buspirone 5 Mg Tablet PO 5 mg DAILY MY Administration Cetirizine HCl 10 mg 06/18/24 21:00 06/20/24 21:17 Cetirizine 10 Mg Tablet PO 10 mg HS MY Administration Cyclobenzaprine HCl 5 mg 06/18/24 14:01 Cyclobenzaprine 10 Mg Tablet PO TID PRN muscle spasms Daptomycin 500 mg 06/18/24 14:45 06/20/24 09:23 Daptomycin 500 Mg Vial IVP 500 mg DAILY MY Administration Docusate Sodium 100 mg 06/18/24 09:00 06/21/24 08:29 Docusate Sodium 100 Mg Capsule PO Not Given BID MY Duloxetine HCl 120 mg 06/19/24 09:00 06/21/24 08:22 Duloxetine 60 Mg Capsule PO 120 mg DAILY MY Administration Enoxaparin Sodium 40 mg 06/18/24 13:00 06/21/24 08:22 Enoxaparin 40 Mg/0.4 Ml Syringe SUBQ 40 mg DAILY MY Administration Furosemide 40 mg 06/19/24 09:00 06/21/24 08:22 Furosemide 40 Mg Tablet PO 40 mg DAILY MY Administration Gabapentin 300 mg 06/18/24 14:00 06/21/24 05:18 Gabapentin 300 Mg Capsule PO 300 mg TID MY Administration Hydromorphone HCl 0.5 mg 06/18/24 11:25 06/20/24 11:36 Hydromorphone 0.5 Mg/0.5 Ml Syringe IVP 0.5 mg Q2H PRN Administration Severe Pain (Level 7-10) Hydroxyzine Pamoate 100 mg 06/18/24 13:02 Hydroxyzine Pamoate 25 Mg Capsule PO TID PRN Anxiety Sodium Chloride 1,000 mls @ 75 mls/hr 06/20/24 08:00 06/20/24 22:52 Normal Saline 0.9% IV 75 mls/hr .[id number] MY Administration Lamotrigine 400 mg 06/19/24 21:00 06/20/24 21:18 Lamotrigine 100 Mg Tablet PO 400 mg HS MY Administration Montelukast Sodium 10 mg 06/18/24 21:00 06/20/24 21:18 Montelukast 10 Mg Tablet PO 10 mg QPM MY Administration Ondansetron HCl 4 mg 06/17/24 21:51 06/21/24 05:15 Ondansetron 4 Mg/2 Ml Vial IVP 4 mg Q6HR PRN Administration Nausea / Vomiting Oxycodone HCl 5 mg 06/18/24 11:25 06/21/24 05:23 Oxycodone 5 Mg Tablet PO 5 mg Q4HR PRN Administration Moderate Pain (Level 4-6) Tpn From Home 1 each 06/18/24 21:00 IV HS MY Buprenorphine 20 Mcg 1 each 06/18/24 15:00 06/18/24 14:50 /Hour Patch Weekly TOP Not Given Q7D MY Polyethylene Glycol 17 gm 06/19/24 09:00 06/21/24 08:29 Polyethylene Glycol 3350 17 Gm Packet PO Not Given DAILY MY Potassium Chloride 20 meq 06/21/24 12:00 Potassium Chloride 20 Meq/15 Ml Udc PO DAILYWM MY Sodium Chloride 10 ml 06/17/24 21:51 06/19/24 12:57 Sodium Chloride Flush 0.9% 10 Ml Syringe IVP 10 ml PRN PRN Administration NEEDED PER PROVIDER ORDERS Sodium Chloride 10 ml 06/18/24 01:00 06/21/24 08:22 Sodium Chloride Flush 0.9% 10 Ml Syringe IVP 10 ml 0100,0900,1700 MY Administration Objective Vital Signs/Intake & Output Reviewed Vital Signs: Yes Vital Signs: Vital Signs x48h Temp Pulse Resp BP Pulse Ox 06/21/24 00:50 36.6 C 80 20 136/70 H 95 Intake & Output: Intake & Output 06/19/24 06/20/24 06/21/24 06/22/24 05:59 05:59 05:59 05:59 Intake Total 1996 3554 / 3554 2958 / 2958 Output Total 775 / 775 1900 / 1900 3600 / 3600 Balance 1222 / 1222 1654 / 1654 -642 / -642 Objective General Appearance: positive No acute distress and Alert Eyes Bilateral: positive Normal inspection and PERRL ENT: positive No signs of dehydration Neck: positive Nml inspection Respiratory: positive Chest non-tender, No respiratory distress and Breath sounds nml Cardiovascular: positive Regular rate & rhythm, No murmur and No gallop Abdomen: positive Non-tender, Nml bowel sounds and No distention Skin: positive Color nml Extremities: positive Nml appearance and Other (Limited ROM in right arm due to preexisting rotator cuff tear and current shoulder abscess being treated.); negative Non-tender, Full ROM or Calf tenderness Neurologic/Psychiatric: positive Oriented x3, CN's nml (2-12), Motor nml, Sensation nml and Mood/affect nml Lab Results 06/21/24 04:57 06/21/24 04:57 Other Labs: Lab Results x24hrs 06/21/24 Range/Units 04:57 WBC 5.6 (4.8-10.8) x10^3/uL RBC 3.63 L (4.20-5.40) 10^6/uL Hgb 9.4 L (12.0-16.0) g/dL Hct 30.1 L (37.0-47.0) % MCV 82.9 (81.0-99.0) fL MCH 25.9 L (27.0-31.0) pg MCHC 31.2 L (32.0-36.0) g/dL RDW 15.6 H (12.0-15.0) % Plt Count 392 (130-450) 10^3/uL MPV 10.0 (7.9-10.8) fL Neut # (Auto) 4.0 (1.5-6.6) 10^3/uL Lymph # (Auto) 0.9 L (1.5-3.5) 10^3/uL [place] # (Auto) 0.3 (0.0-1.0) 10^3/uL Eos # (Auto) 0.2 (0.0-0.7) 10^3/uL Baso # (Auto) 0.1 (0.0-0.1) 10^3/uL Absolute Nucleated RBC 0.00 x10^3/uL Nucleated RBC % 0.0 /100WBC Sodium 142 (135-145) mmol/L Potassium 3.6 (3.5-4.5) mmol/L Chloride 110 (101-111) mmol/L Carbon Dioxide 25 (21-32) mmol/L Anion Gap 7.0 (6-13) BUN 11 (6-20) mg/dL Creatinine 0.7 (0.6-1.3) mg/dL Estimated GFR (MDRD) 88 L (>89) Glucose 83 (74-104) mg/dL Calcium 7.5 L (8.5-10.3) mg/dL C-Reactive Protein 17.9 H (<0.5) mg/dL Sepsis Event Note (H) Evaluation Current Stage of Sepsis: Sepsis Possible source of Sepsis: positive Bone/Joint, Skin/soft tissue and Wound Sepsis Criteria Sepsis Criteria: Suspected or Documented Assessment/Plan Problem List (1) Abscess of right shoulder: Impression: Underwent I&D on 06/17/2024 with wound packing. Care was transitioned to hospitalist team as there is no Ortho coverage on the weekend. 06/21/2024: Wound packing changed yesterday by Ortho PA. Abscess cultures pending. Blood cultures showing MRSA (2) Sepsis: Impression: Reported to be febrile up to 103 F, no record of this in the flowsheets. Was placed on broad-spectrum coverage with cefepime, daptomycin, clindamycin Starting 06/18/2024. Blood cultures have since shown MRSA. De-escalated to Dapto. Central line has been removed. She will need a negative blood culture before we can replace it Qualifiers: Sepsis acute organ dysfunction status: without acute organ dysfunction Sepsis type: methicillin resistant Staphylococcus aureus Qualified Code(s): A 41.02 - Sepsis due to Methicillin resistant Staphylococcus aureus (3) Shoulder pain: Impression: Patient has chronic shoulder pain due to torn rotator cuff. She is also experiencing pain from the abscess. Patient has scheduled and PRN pain management medication orders in place. Qualifiers: Chronicity: unspecified Laterality: right Qualified Code(s): M25.511 - Pain in right shoulder (4) Hypokalemia: Impression: She takes 40 mg Lasix at home. I am adding 20 mEq KCl daily (5) On total parenteral nutrition (TPN): Impression: Patient was on mcfp TPN via CVC due to hx of gastric surgery. Her CVC had to be removed due to being a possible source of her MRSA infection. Patient is able to eat but it is suspected her total intake and overall nutrition will be limited. We hope to have a new CVC established prior to discharge to resume her standard TPN administration, but that will be dependent on her bacteremia/blood culture results which should be performed on Friday. Will continue to monitor for signs of poor nutrition and encourage patient to intake what she can until TPN can be resumed.
[2024-06-21] MEDS: POTASSIUM CHLORIDE 20 MEQ/15 ML UDC PO SCH (14:35)
[2024-06-21] MEDS: FAT EMULSION 20% 250 ML IV SCH (19:12)
[2024-06-21] MEDS: MULTIVITAMIN IV SCH (19:13)
[2024-06-21] MEDS: PPN IV SCH (19:13)
[2024-06-22 05:37] LABS: BASOPHILS # (AUTO) 0.1 10^3/uL (0.0-0.1); BASOPHILS % (AUTO) 0.9 %; EOSINOPHILS # (AUTO) 0.2 10^3/uL (0.0-0.7); EOSINOPHILS % (AUTO) 3.3 %; HCT - HEMATOCRIT 28.5 % (37.0-47.0); HGB - HEMOGLOBIN 9.2 g/dL (12.0-16.0); LYMPHOCYTES # (AUTO) 1.1 10^3/uL (1.5-3.5); MEAN CORPUSCULAR HEMOGLOBIN 26.7 pg (27.0-31.0); MEAN CORPUSCULAR HGB CONC 32.3 g/dL (32.0-36.0); MEAN CORPUSCULAR VOLUME 82.6 fL (81.0-99.0); MEAN PLATELET VOLUME 9.5 fL (7.9-10.8); MONOCYTES # (AUTO) 0.3 10^3/uL (0.0-1.0); NEUTROPHILS # (AUTO) 4.8 10^3/uL (1.5-6.6); NEUTROPHILS % (AUTO) 71.5 %; PLT - PLATELET COUNT 383 10^3/uL (130-450); RED BLOOD COUNT 3.45 10^6/uL (4.20-5.40); WHITE BLOOD COUNT 6.7 x10^3/uL (4.8-10.8)
[2024-06-22 06:01] LABS: CREATININE 0.6 mg/dL (0.6-1.3); CRP - C-REACTIVE PROTEIN 11.4 mg/dL (<0.5); POTASSIUM 3.3 mmol/L (3.5-4.5)
[2024-06-22] MEDS: PPN (CLINIMIX E 4.25/5) 1,000 ML IV SCH (08:31)
[2024-06-22] MEDS: POTASSIUM CHLORIDE 20 MEQ TABLET PO SCH (09:23)
[2024-06-22 11:09] LABS: MAGNESIUM 1.7 mg/dL (1.7-2.3); PHOSPHORUS 3.1 mg/dL (2.5-5.0)
--- NOTE | 2024-06-22 16:11 | PROVIDER PROGRESS NOTE ---
Subjective Prog Note Date Prog Note Date: 06/22/24 Prog Note Time: 12:15 Subjective Pt reports feeling: No change Subjective: Still has lots of right shoulder pain. Current Medications Current Medications Current Medications: Current Medications Generic Name Dose Route Start Last Admin Trade Name Freq PRN Reason Stop Dose Admin Acetaminophen 1,000 mg 06/18/24 06:00 06/22/24 13:35 Acetaminophen 500 Mg Tablet PO 1,000 mg TID MY Administration Baclofen 20 mg 06/17/24 22:00 06/22/24 13:36 Baclofen 10 Mg Tablet PO 20 mg TID MY Administration Buspirone HCl 5 mg 06/19/24 09:00 06/22/24 08:32 Buspirone 5 Mg Tablet PO 5 mg DAILY MY Administration Cetirizine HCl 10 mg 06/18/24 21:00 06/21/24 21:44 Cetirizine 10 Mg Tablet PO 10 mg HS MY Administration Cyclobenzaprine HCl 5 mg 06/18/24 14:01 Cyclobenzaprine 10 Mg Tablet PO TID PRN muscle spasms Daptomycin 500 mg 06/18/24 14:45 06/22/24 08:34 Daptomycin 500 Mg Vial IVP 500 mg DAILY MY Administration Docusate Sodium 100 mg 06/18/24 09:00 06/22/24 08:33 Docusate Sodium 100 Mg Capsule PO Not Given BID MY Duloxetine HCl 120 mg 06/19/24 09:00 06/22/24 08:32 Duloxetine 60 Mg Capsule PO 120 mg DAILY MY Administration Enoxaparin Sodium 40 mg 06/18/24 13:00 06/22/24 08:33 Enoxaparin 40 Mg/0.4 Ml Syringe SUBQ Not Given DAILY MY Furosemide 40 mg 06/19/24 09:00 06/22/24 08:33 Furosemide 40 Mg Tablet PO Not Given DAILY MY Gabapentin 300 mg 06/18/24 14:00 06/22/24 13:35 Gabapentin 300 Mg Capsule PO 300 mg TID MY Administration Hydromorphone HCl 0.5 mg 06/18/24 11:25 06/20/24 11:36 Hydromorphone 0.5 Mg/0.5 Ml Syringe IVP 0.5 mg Q2H PRN Administration Severe Pain (Level 7-10) Hydroxyzine Pamoate 100 mg 06/18/24 13:02 Hydroxyzine Pamoate 25 Mg Capsule PO TID PRN Anxiety Multivitamins 10 ml/ Amino 1,010 mls @ 84.167 mls/hr 06/21/24 19:00 06/22/24 07:56 Acids/Electrolytes/Dextrose IV Infused 1900 [facility] Infusion Fat Emulsion Intravenous 250 mls @ 21 mls/hr 06/21/24 19:00 06/22/24 07:30 Intralipid 20% IV Infused 1900 [facility] Infusion Amino Acids/Electrolytes/Dextrose 1,000 mls @ 83.333 mls/hr 06/22/24 07:00 06/22/24 08:31 Clinimix E 4.25%-5% Solution IV 83.33 mls/hr 0700 MY Administration Lamotrigine 400 mg 06/19/24 21:00 06/21/24 21:45 Lamotrigine 100 Mg Tablet PO 400 mg HS MY Administration Montelukast Sodium 10 mg 06/18/24 21:00 06/21/24 21:45 Montelukast 10 Mg Tablet PO 10 mg QPM MY Administration Ondansetron HCl 4 mg 06/17/24 21:51 06/21/24 14:48 Ondansetron 4 Mg/2 Ml Vial IVP 4 mg Q6HR PRN Administration Nausea / Vomiting Oxycodone HCl 5 mg 06/18/24 11:25 06/22/24 13:35 Oxycodone 5 Mg Tablet PO 5 mg Q4HR PRN Administration Moderate Pain (Level 4-6) Buprenorphine 20 Mcg 1 each 06/18/24 15:00 06/18/24 14:50 /Hour Patch Weekly TOP Not Given Q7D MY Polyethylene Glycol 17 gm 06/19/24 09:00 06/22/24 08:33 Polyethylene Glycol 3350 17 Gm Packet PO Not Given DAILY MY Potassium Chloride 20 meq 06/22/24 09:15 06/22/24 09:23 Potassium Chloride 20 Meq Tablet PO 20 meq DAILYWM MY Administration Sodium Chloride 10 ml 06/17/24 21:51 06/19/24 12:57 Sodium Chloride Flush 0.9% 10 Ml Syringe IVP 10 ml PRN PRN Administration NEEDED PER PROVIDER ORDERS Sodium Chloride 10 ml 06/18/24 01:00 06/22/24 08:33 Sodium Chloride Flush 0.9% 10 Ml Syringe IVP 10 ml 0100,0900,1700 MY Administration Objective Vital Signs/Intake & Output Reviewed Vital Signs: Yes Vital Signs: Vital Signs x48h Temp Pulse Resp BP Pulse Ox 06/22/24 15:37 36.6 C 71 20 111/72 96 06/22/24 08:15 36.4 C L 72 18 147/79 H 94 Intake & Output: Intake & Output 06/20/24 06/21/24 06/22/24 06/23/24 05:59 05:59 05:59 05:59 Intake Total 3554 / 3554 2958 / 2958 3180 / 3180 1214 / 1214 Output Total 1900 / 1900 3600 / 3600 2005 / 2005 800 / 800 Balance 1654 / 1654 -642 / -642 1174 / 1174 414 / 414 Objective General Appearance: positive No acute distress and Alert Eyes Bilateral: positive Normal inspection and PERRL ENT: positive No signs of dehydration Neck: positive Nml inspection Respiratory: positive Chest non-tender, No respiratory distress and Breath sounds nml Cardiovascular: positive Regular rate & rhythm and No murmur Abdomen: positive Non-tender, Nml bowel sounds and No distention Skin: positive Color nml Extremities: positive Nml appearance and Other (Limited ROM in right arm due to preexisting rotator cuff tear and current shoulder abscess being treated.); negative Non-tender, Full ROM or Calf tenderness Neurologic/Psychiatric: positive Oriented x3, CN's nml (2-12), Motor nml, Sensation nml and Mood/affect nml Lab Results 06/22/24 05:22 06/22/24 05:22 Other Labs: Lab Results x24hrs 06/22/24 06/22/24 Range/Units 10:44 05:22 WBC 6.7 (4.8-10.8) x10^3/uL RBC 3.45 L (4.20-5.40) 10^6/uL Hgb 9.2 L (12.0-16.0) g/dL Hct 28.5 L (37.0-47.0) % MCV 82.6 (81.0-99.0) fL MCH 26.7 L (27.0-31.0) pg MCHC 32.3 (32.0-36.0) g/dL RDW 15.0 (12.0-15.0) % Plt Count 383 (130-450) 10^3/uL MPV 9.5 (7.9-10.8) fL Neut # (Auto) 4.8 (1.5-6.6) 10^3/uL Lymph # (Auto) 1.1 L (1.5-3.5) 10^3/uL [place] # (Auto) 0.3 (0.0-1.0) 10^3/uL Eos # (Auto) 0.2 (0.0-0.7) 10^3/uL Baso # (Auto) 0.1 (0.0-0.1) 10^3/uL Absolute Nucleated RBC 0.00 x10^3/uL Nucleated RBC % 0.0 /100WBC Sodium 137 (135-145) mmol/L Potassium 3.3 L (3.5-4.5) mmol/L Chloride 100 L (101-111) mmol/L Carbon Dioxide 31 (21-32) mmol/L Anion Gap 6.0 (6-13) BUN 11 (6-20) mg/dL Creatinine 0.6 (0.6-1.3) mg/dL Estimated GFR (MDRD) 105 (>89) Glucose 118 H (74-104) mg/dL Calcium 8.0 L (8.5-10.3) mg/dL Phosphorus 3.1 (2.5-5.0) mg/dL Magnesium 1.7 (1.7-2.3) mg/dL Total Creatine Kinase 14 L (30-223) IU/L C-Reactive Protein 11.4 H (<0.5) mg/dL ABX Reporting Has patient been on IV antibiotics over the past 48 hours?: Yes Sepsis Event Note (H) Evaluation Current Stage of Sepsis: Sepsis Possible source of Sepsis: positive Bone/Joint, Skin/soft tissue and Wound Sepsis Criteria Sepsis Criteria: Suspected or Documented Assessment/Plan Problem List (1) Abscess of right shoulder: Impression: Underwent I&D on 06/17/2024 with wound packing. Care was transitioned to hospitalist team as there is no Ortho coverage on the weekend. 06/21/2024: Wound packing changed yesterday by Ortho PA. Abscess cultures pending. Blood cultures showing MRSA (2) Sepsis: Impression: Reported to be febrile up to 103 F, no record of this in the flowsheets. Was placed on broad-spectrum coverage with cefepime, daptomycin, clindamycin Starting 06/18/2024. Blood cultures have since shown MRSA. De-escalated to Dapto. Central line has been removed. She will need a negative blood culture before we can replace it. She will need to complete 2 weeks of daptomycin for positive blood cultures. She has a history of elevated CK in the past with daptomycin. I rechecked her CK today it is 14. Her CRP continues to decrease. Laboratory Tests 06/19/24 06/20/24 06/21/24 05:16 05:29 04:57 C-Reactive Protein 27.5 H 24.4 H 17.9 H 06/22/24 05:22 C-Reactive Protein 11.4 H Qualifiers: Sepsis acute organ dysfunction status: without acute organ dysfunction Sepsis type: methicillin resistant Staphylococcus aureus Qualified Code(s): A 41.02 - Sepsis due to Methicillin resistant Staphylococcus aureus (3) Shoulder pain: Impression: Patient has chronic shoulder pain due to torn rotator cuff. She is also experiencing pain from the abscess. Patient has scheduled and PRN pain management medication orders in place. Qualifiers: Chronicity: unspecified Laterality: right Qualified Code(s): M25.511 - Pain in right shoulder (4) Hypokalemia: Impression: She takes 40 mg Lasix at home. We have continued her home dosing of Lasix while she has been here. I am continuing her on 20 mill equivalents of potassium daily. I will recheck her BMP in the AM. Laboratory Tests 06/20/24 06/21/24 06/22/24 05:29 04:57 05:22 Potassium 3.3 L 3.6 3.3 L (5) On total parenteral nutrition (TPN): Impression: Patient was on terminal operations manager TPN via CVC due to hx of gastric surgery. 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 This was done when she was in her 30s. She has been on TPN for this long. It is unclear to me why she is not on a different method of nutrition but this is her routine and has been for in excess of 20 years.She is managed by a volunteer patient representative in the outpatient environment.Her CVC had to be removed due to being a possible source of her MRSA infection. Patient is able to eat but it is suspected her total intake and overall nutrition will be limited. We hope to have a new CVC established prior to discharge to resume her standard TPN administration, but that will be dependent on her bacteremia/blood culture results which should be performed on Friday. Will continue to monitor for signs of poor nutrition and encourage patient to intake what she can until TPN can be resumed. She is currently on PPN. Blood cultures are pending. I have spent 36 minutes in the care of this patient today. This includes time [id number], review and ordering of diagnostic imaging and laboratory studies. Monitoring the patient's signs symptoms, evaluation of medication effectiveness and patient's response to treatment.
[2024-06-23 06:02] LABS: BASOPHILS % (AUTO) 0.6 %; EOSINOPHILS # (AUTO) 0.2 10^3/uL (0.0-0.7); EOSINOPHILS % (AUTO) 3.6 %; HCT - HEMATOCRIT 30.6 % (37.0-47.0); HGB - HEMOGLOBIN 9.8 g/dL (12.0-16.0); LYMPHOCYTES # (AUTO) 1.2 10^3/uL (1.5-3.5); LYMPHOCYTES % (AUTO) 17.6 %; MEAN CORPUSCULAR HEMOGLOBIN 26.5 pg (27.0-31.0); MEAN CORPUSCULAR VOLUME 82.7 fL (81.0-99.0); MEAN PLATELET VOLUME 9.5 fL (7.9-10.8); MONOCYTES # (AUTO) 0.4 10^3/uL (0.0-1.0); MONOCYTES % (AUTO) 6.7 %; NEUTROPHILS # (AUTO) 4.4 10^3/uL (1.5-6.6); NEUTROPHILS % (AUTO) 66.8 %; NRBC ABSOLUTE COUNT (AUTO) 0.02 x10^3/uL; NUCLEATED RED BLOOD CELLS AUTO 0.3 /100WBC; PLT - PLATELET COUNT 364 10^3/uL (130-450); RED CELL DISTRIBUTION WIDTH 15.2 % (12.0-15.0); WHITE BLOOD COUNT 6.6 x10^3/uL (4.8-10.8)
[2024-06-23 06:22] LABS: CALCIUM 8.3 mg/dL (8.5-10.3); CREATININE 0.6 mg/dL (0.6-1.3); CRP - C-REACTIVE PROTEIN 10.1 mg/dL (<0.5); POTASSIUM 3.9 mmol/L (3.5-4.5)
--- NOTE | 2024-06-23 07:23 | PROVIDER PROGRESS NOTE ---
Subjective Prog Note Date Prog Note Date: 06/23/24 Prog Note Time: 08:45 Subjective Pt reports feeling: Worse Subjective: Her anxiety is becoming more of a problem. She states that at home she is on buprenorphine patch which she has been able to get here she is also on Vistaril. She states she has ADD and takes Adderall 20 mg in the morning and at 2 PM 15 mg at 6 to 7 PM. She has been unable to get these medications because her son has not been able to bring these from home. She states that her pain is under control but she is not able to move very much. At home she is dependent on a walker or cane and wheelchair. She has a longstanding right BKA but has been having problems with the stump breaking open when she attempts to use her prosthetic lower extremity. Current Medications Current Medications Current Medications: Current Medications Generic Name Dose Route Start Last Admin Trade Name Freq PRN Reason Stop Dose Admin Acetaminophen 1,000 mg 06/18/24 06:00 06/23/24 06:38 Acetaminophen 500 Mg Tablet PO 1,000 mg TID MY Administration Baclofen 20 mg 06/17/24 22:00 06/23/24 06:38 Baclofen 10 Mg Tablet PO 20 mg TID MY Administration Buspirone HCl 5 mg 06/19/24 09:00 06/22/24 08:32 Buspirone 5 Mg Tablet PO 5 mg DAILY MY Administration Cetirizine HCl 10 mg 06/18/24 21:00 06/22/24 21:26 Cetirizine 10 Mg Tablet PO 10 mg HS MY Administration Cyclobenzaprine HCl 5 mg 06/18/24 14:01 Cyclobenzaprine 10 Mg Tablet PO TID PRN muscle spasms Daptomycin 500 mg 06/18/24 14:45 06/22/24 08:34 Daptomycin 500 Mg Vial IVP 500 mg DAILY MY Administration Docusate Sodium 100 mg 06/18/24 09:00 06/22/24 21:26 Docusate Sodium 100 Mg Capsule PO Not Given BID MY Duloxetine HCl 120 mg 06/19/24 09:00 06/22/24 08:32 Duloxetine 60 Mg Capsule PO 120 mg DAILY MY Administration Enoxaparin Sodium 40 mg 06/18/24 13:00 06/22/24 08:33 Enoxaparin 40 Mg/0.4 Ml Syringe SUBQ Not Given DAILY MY Furosemide 40 mg 06/19/24 09:00 06/22/24 08:33 Furosemide 40 Mg Tablet PO Not Given DAILY [facility] Gabapentin 300 mg 06/18/24 14:00 06/23/24 06:38 Gabapentin 300 Mg Capsule PO 300 mg TID MY Administration Hydromorphone HCl 0.5 mg 06/18/24 11:25 06/22/24 23:57 Hydromorphone 0.5 Mg/0.5 Ml Syringe IVP 0.5 mg Q2H PRN Administration Severe Pain (Level 7-10) Hydroxyzine Pamoate 100 mg 06/18/24 13:02 Hydroxyzine Pamoate 25 Mg Capsule PO TID PRN Anxiety Multivitamins 10 ml/ Amino 1,010 mls @ 84.167 mls/hr 06/21/24 19:00 06/22/24 22:03 Acids/Electrolytes/Dextrose IV 84.17 mls/hr 1900 [facility] Infusion Fat Emulsion Intravenous 250 mls @ 21 mls/hr 06/21/24 19:00 06/22/24 22:03 Intralipid 20% IV 21 mls/hr 1900 [facility] Infusion Amino Acids/Electrolytes/Dextrose 1,000 mls @ 83.333 mls/hr 06/22/24 07:00 06/22/24 19:05 Clinimix E 4.25%-5% Solution IV Infused 0700 [facility] Infusion Lamotrigine 400 mg 06/19/24 21:00 06/22/24 21:26 Lamotrigine 100 Mg Tablet PO 400 mg HS MY Administration Montelukast Sodium 10 mg 06/18/24 21:00 06/22/24 21:25 Montelukast 10 Mg Tablet PO 10 mg QPM MY Administration Ondansetron HCl 4 mg 06/17/24 21:51 06/21/24 14:48 Ondansetron 4 Mg/2 Ml Vial IVP 4 mg Q6HR PRN Administration Nausea / Vomiting Oxycodone HCl 5 mg 06/18/24 11:25 06/22/24 13:35 Oxycodone 5 Mg Tablet PO 5 mg Q4HR PRN Administration Moderate Pain (Level 4-6) Buprenorphine 20 Mcg 1 each 06/18/24 15:00 06/18/24 14:50 /Hour Patch Weekly TOP Not Given Q7D [facility] Polyethylene Glycol 17 gm 06/19/24 09:00 06/22/24 08:33 Polyethylene Glycol 3350 17 Gm Packet PO Not Given DAILY MY Potassium Chloride 20 meq 06/22/24 09:15 06/22/24 09:23 Potassium Chloride 20 Meq Tablet PO 20 meq DAILYWM MY Administration Sodium Chloride 10 ml 06/17/24 21:51 06/22/24 21:33 Sodium Chloride Flush 0.9% 10 Ml Syringe IVP 10 ml PRN PRN Administration NEEDED PER PROVIDER ORDERS Sodium Chloride 10 ml 06/18/24 01:00 06/22/24 23:57 Sodium Chloride Flush 0.9% 10 Ml Syringe IVP 10 ml 0100,0900,1700 MY Administration Objective Vital Signs/Intake & Output Reviewed Vital Signs: Yes Vital Signs: Vital Signs x48h Temp Pulse Resp BP Pulse Ox 06/22/24 23:49 36.7 C 72 16 140/75 H 94 Intake & Output: Intake & Output 06/21/24 06/22/24 06/23/24 06/24/24 05:59 05:59 05:59 05:59 Intake Total 2958 / 2958 3180 / 3180 2979 / 2979 Output Total 3600 / 3600 2005 / 2005 2250 / 2250 Balance -642 / -642 1174 / 1174 729 / 729 Objective General Appearance: positive No acute distress and Alert Eyes Bilateral: positive Normal inspection and PERRL ENT: positive No signs of dehydration Neck: positive Nml inspection Respiratory: positive Chest non-tender, No respiratory distress and Breath sounds nml Cardiovascular: positive Regular rate & rhythm and No murmur Abdomen: positive Non-tender, Nml bowel sounds and No distention Skin: positive Color nml Extremities: positive Nml appearance and Other (Limited ROM in right arm due to preexisting rotator cuff tear and current shoulder abscess being treated.I examined the suture line with Dr. Wayne this afternoon. There is purulent drainage expressed from the suture line.); negative Non-tender, Full ROM or Calf tenderness Neurologic/Psychiatric: positive Oriented x3, CN's nml (2-12), Motor nml, Sensation nml and Mood/affect nml Lab Results 06/23/24 05:46 06/23/24 05:46 Other Labs: Lab Results x24hrs 06/23/24 06/22/24 Range/Units 05:46 10:44 WBC 6.6 (4.8-10.8) x10^3/uL RBC 3.70 L (4.20-5.40) 10^6/uL Hgb 9.8 L (12.0-16.0) g/dL Hct 30.6 L (37.0-47.0) % MCV 82.7 (81.0-99.0) fL MCH 26.5 L (27.0-31.0) pg MCHC 32.0 (32.0-36.0) g/dL RDW 15.2 H (12.0-15.0) % Plt Count 364 (130-450) 10^3/uL MPV 9.5 (7.9-10.8) fL Neut # (Auto) 4.4 (1.5-6.6) 10^3/uL Lymph # (Auto) 1.2 L (1.5-3.5) 10^3/uL [place] # (Auto) 0.4 (0.0-1.0) 10^3/uL Eos # (Auto) 0.2 (0.0-0.7) 10^3/uL Baso # (Auto) 0.0 (0.0-0.1) 10^3/uL Absolute Nucleated RBC 0.02 x10^3/uL Nucleated RBC % 0.3 /100WBC Sodium 139 (135-145) mmol/L Potassium 3.9 (3.5-4.5) mmol/L Chloride 101 (101-111) mmol/L Carbon Dioxide 32 (21-32) mmol/L Anion Gap 6.0 (6-13) BUN 10 (6-20) mg/dL Creatinine 0.6 (0.6-1.3) mg/dL Estimated GFR (MDRD) 105 (>89) Glucose 104 (74-104) mg/dL Calcium 8.3 L (8.5-10.3) mg/dL Phosphorus 3.1 (2.5-5.0) mg/dL Magnesium 1.7 (1.7-2.3) mg/dL Total Creatine Kinase 14 L (30-223) IU/L C-Reactive Protein 10.1 H (<0.5) mg/dL ABX Reporting Has patient been on IV antibiotics over the past 48 hours?: Yes Sepsis Event Note (H) Evaluation Current Stage of Sepsis: Sepsis Possible source of Sepsis: positive Bone/Joint, Skin/soft tissue and Wound Sepsis Criteria Sepsis Criteria: Suspected or Documented Assessment/Plan Problem List (1) Abscess of right shoulder: Impression: Underwent I&D on 06/17/2024 with wound packing. 06/23/24: There is purulent drainage coming from the suture line. She is going back to the operating room this afternoon for reopening of the joint debridement and washout. I discussed the patient with Dr. Wayne today. I will change the dressing on Monday 06/25 and then orthopedics will follow-up with the patient. 06/21/2024: Wound packing changed yesterday by Ortho PA. Abscess cultures pending. Blood cultures showing MRSA (2) Sepsis: Impression: Reported to be febrile up to 103 F, no record of this in the flowsheets. Was placed on broad-spectrum coverage with cefepime, daptomycin, clindamycin Starting 06/18/2024. Blood cultures have since shown MRSA. De-escalated to Dapto. Central line has been removed. She will need a negative blood culture before we can replace it. Blood culture will have 2 days of growth on 1127. We will likely replace the PICC line on 06/25. I have discussed this with anesthesia today. She will need to complete 2 weeks of daptomycin for positive blood cultures. She has a history of elevated CK in the past with daptomycin. I rechecked her CK it is 14. Her CRP continues to decrease. Laboratory Tests 06/19/24 06/20/24 06/21/24 05:16 05:29 04:57 C-Reactive Protein 27.5 H 24.4 H 17.9 H 06/22/24 05:22 C-Reactive Protein 11.4 H Qualifiers: Sepsis acute organ dysfunction status: without acute organ dysfunction Sepsis type: methicillin resistant Staphylococcus aureus Qualified Code(s): A 41.02 - Sepsis due to Methicillin resistant Staphylococcus aureus (3) Shoulder pain: Impression: Patient has chronic shoulder pain due to torn rotator cuff. She is also experiencing pain from the abscess. Patient has scheduled and PRN pain management medication orders in place. Qualifiers: Chronicity: unspecified Laterality: right Qualified Code(s): M25.511 - Pain in right shoulder (4) Hypokalemia: Impression: She takes 40 mg Lasix at home. We have continued her home dosing of Lasix while she has been here. I am continuing her on 20 mill equivalents of potassium daily. I will recheck her BMP in the AM.Laboratory Tests 06/22/24 06/23/24 05:22 05:46 Potassium 3.3 L 3.9 (5) On total parenteral nutrition (TPN): Impression: Patient was on shelter TPN via CVC due to hx of gastric surgery. 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 This was done when she was in her 30s. She has been on TPN for this long. It is unclear to me why she is not on a different method of nutrition but this is her routine and has been for in excess of 20 years.She is managed by a grounding engineer in the outpatient environment.Her CVC had to be removed due to being a possible source of her MRSA infection. Patient is able to eat but it is suspected her total intake and overall nutrition will be limited. We hope to have a new CVC established prior to discharge to resume her standard TPN administration, but that will be dependent on her bacteremia/blood culture results which should be performed on Friday. Will continue to monitor for signs of poor nutrition and encourage patient to intake what she can until TPN can be resumed. She is currently on PPN. Blood cultures are pending. I have spent 52 minutes in the care of this patient today. This includes time [id number], review and ordering of diagnostic imaging and laboratory studies. Monitoring the patient's signs symptoms, evaluation of medication effectiveness and patient's response to treatment.
[2024-06-23] MEDS: hydrOXYzine PAMOATE 25 MG CAPSULE PO PRN (08:12)
[2024-06-23] MEDS: CYCLOBENZAPRINE 10 MG TABLET PO PRN (08:14)
[2024-06-23 10:23] LABS: PREALBUMIN 12 mg/dL (17-34)
[2024-06-23] MEDS: IBUPROFEN 600 MG TABLET PO SCH (14:43)
[2024-06-23] MEDS: hydrOXYzine PAMOATE 25 MG CAPSULE PO SCH (14:44)
--- NOTE | 2024-06-23 15:56 | POST OP PROGRESS NOTE ---
Subjective General Admit Date: 06/17/24 Procedure Date: 06/17/24 Post Op Days: 6 Procedure Performed: Incision and debridement right shoulder abscess Other Other Information/Narrative: Admit Date: 06/17/24 Procedure Date: 06/17/24 Post Op Days: 6 Procedure Performed: Incision and debridement right shoulder abscess Other Other Information/Narrative: 53 year old female who is post operative day 6 from irrigation and debridment of right shoulder for right shoulder abscess on 06/17/24. She was found to have MRSA septicemia. She reports tolerable right shoulder pain. She denies chest pain, shortness of breath, nausea and emesis. Wound cultures from the operating room are positive for MRSA. Prior to development of abscess she was completing physical therapy for right rotator cuff tear at [facility]. She had limited motion and intense pain in the shoulder prior to abscess development. ABX Reporting Has patient been on IV antibiotics over the past 48 hours?: Yes Ortho Surgical Progress Note Problem List Problem List: Right shoulder abscess with MRSA septicemia - Dressing changed today - purulence expressed from wound. - Continue IV antibiotics, - Trend CRP daily - 10 today - Sling to be used as needed for comfort - DVT prophylaxis with lovenox and SCDs, ambulate and up to chair as able - Follow up with orthopedic clinic 14 days after surgery for suture removal - Pain management per medicine team Today I took down the dressings and removed the packing from the wound. Purulent drainage. No erythema or fluctuance about skin. I consented the patient for I & D for tonight. Ortho Surgical Progress Note Problem List Discharge Instructions: * Always ambulate with front wheeled walker until instructed otherwise by your surgeon. Please refer to the booklet provided at [facility] for instructions for ambulation. You can weight-bear as tolerated on the affected extremity. * Avoid crossing your legs when sitting in low chairs to reduce chance of hip dislocation * Follow the pre-operatively agreed upon pain regimen described in the [facility] booklet. As a reminder, the discussed medications include using acetaminophen, ibuprofen, oxycodone and tramadol. * Ice area to decrease pain and swelling * Take Aspirin 81 mg twice daily for 6 weeks for blood clot prevention * Leave dressing in place until follow up in office. You can shower with the dressing in place if it is kept dry and neat * Please call the office if you experience fever, chills, chest pain, shortness of breath, nausea, vomiting, drainage or bleeding * You are scheduled for follow-up with the orthopedic clinic in 5 days * Appreciate input from hospitalist team for management of chronic medical conditions Exam Exam PE: Malnourished female in NAD. Afebrile since surgery. Dressing is clean/dry/intact. No surrounding erythema or warmth. Able to move shoulder without joint irritability SILT r/u/m/axillary Fires delt/epl/fpl/io Rad pulse 2+ and brisk cap refill.
[2024-06-23] MEDS ORDERED: ePHEDrine 50 MG/ML VIAL IVP PRN (17:24)
[2024-06-23] MEDS ORDERED: NALOXONE 0.4 MG/ML VIAL IVP PRN (17:24)
[2024-06-23] MEDS ORDERED: fentaNYL 100 MCG/2 ML VIAL IVP PRN (17:24)
[2024-06-23] MEDS ORDERED: METOCLOPRAMIDE 10 MG/2 ML VIAL IVP PRN (17:24)
[2024-06-23] MEDS ORDERED: ONDANSETRON 4 MG/2 ML VIAL IVP PRN (17:24)
[2024-06-23] MEDS ORDERED: ATROPINE ABBOJECT 1 MG/10 ML SYRINGE IVP PRN (17:24)
--- NOTE | 2024-06-23 17:24 | ANESTHESIA PROCEDURE NOTE ---
Pre-Anesthesia VS, & Labs Diagnosis Surgical Diagnosis:: right shoulder abscess Procedure Procedure: I/D right shoulder Vitals Vital Signs: Temp Pulse Resp BP Pulse Ox O2 Flow Rate 36.7 C 75 16 127/78 94 1 06/23/24 15:39 06/23/24 15:39 06/23/24 15:39 06/23/24 15:39 06/23/24 15:39 06/18/24 12:32 Height (in): 5 ft 6 in Weight (kg): 67 kg Body Mass Index: 23.8 BMI Classification: Normal NPO NPO: >8 hours Is Patient ?: No Lab Results Current Lab Results: Laboratory Tests 06/23/24 05:46: WBC 6.6, RBC 3.70 L, Hgb 9.8 L, Hct 30.6 L, MCV 82.7, MCH 26.5 L , MCHC 32.0, RDW 15.2 H, Plt Count 364, MPV 9.5, Neut # (Auto) 4.4, Lymph # (Auto) 1.2 L, [place] # (Auto) 0.4, Eos # (Auto) 0.2, Baso # (Auto) 0.0, Absolute Nucleated RBC 0.02, Nucleated RBC % 0.3, Sodium 139, Potassium 3.9, Chloride 101, Carbon Dioxide 32, Anion Gap 6.0, BUN 10, Creatinine 0.6, Estimated GFR (MDRD) 105, Glucose 104, Calcium 8.3 L, C-Reactive Protein 10.1 H, Prealbumin 12 L 06/22/24 10:44: Phosphorus 3.1, Magnesium 1.7, Total Creatine Kinase 14 L 06/22/24 05:22: WBC 6.7, RBC 3.45 L, Hgb 9.2 L, Hct 28.5 L, MCV 82.6, MCH 26.7 L , MCHC 32.3, RDW 15.0, Plt Count 383, MPV 9.5, Neut # (Auto) 4.8, Lymph # (Auto) 1.1 L, [place] # (Auto) 0.3, Eos # (Auto) 0.2, Baso # (Auto) 0.1, Absolute Nucleated RBC 0.00, Nucleated RBC % 0.0, Sodium 137, Potassium 3.3 L, Chloride 100 L, Carbon Dioxide 31, Anion Gap 6.0, BUN 11, Creatinine 0.6, Estimated GFR (MDRD) 105, Glucose 118 H, Calcium 8.0 L, C-Reactive Protein 11.4 H 06/21/24 04:57: WBC 5.6, RBC 3.63 L, Hgb 9.4 L, Hct 30.1 L, MCV 82.9, MCH 25.9 L , MCHC 31.2 L, RDW 15.6 H, Plt Count 392, MPV 10.0, Neut # (Auto) 4.0, Lymph # (Auto) 0.9 L, [place] # (Auto) 0.3, Eos # (Auto) 0.2, Baso # (Auto) 0.1, Absolute Nucleated RBC 0.00, Nucleated RBC % 0.0, Sodium 142, Potassium 3.6, Chloride 110, Carbon Dioxide 25, Anion Gap 7.0, BUN 11, Creatinine 0.7, Estimated GFR (MDRD) 88 L, Glucose 83, Calcium 7.5 L, C-Reactive Protein 17.9 H 06/20/24 05:29: WBC 5.7, RBC 3.23 L, Hgb 8.4 L, Hct 26.4 L, MCV 81.7, MCH 26.0 L , MCHC 31.8 L, RDW 15.4 H, Plt Count 321, MPV 9.8, Neut # (Auto) 4.1, Lymph # (Auto) 0.8 L, [place] # (Auto) 0.4, Eos # (Auto) 0.3, Baso # (Auto) 0.1, Absolute Nucleated RBC 0.02, Nucleated RBC % 0.4, Sodium 140, Potassium 3.3 L, Chloride 109, Carbon Dioxide 25, Anion Gap 6.0, BUN 11, Creatinine 0.7, Estimated GFR (MDRD) 88 L, Glucose 81, Calcium 7.4 L, C-Reactive Protein 24.4 H 06/19/24 05:16: WBC 6.6, RBC 3.27 L, Hgb 8.5 L, Hct 27.8 L, MCV 85.0, MCH 26.0 L , MCHC 30.6 L, RDW 15.5 H, Plt Count 272, MPV 10.1, Neut # (Auto) 5.0, Lymph # (Auto) 0.7 L, [place] # (Auto) 0.5, Eos # (Auto) 0.3, Baso # (Auto) 0.1, Absolute Nucleated RBC 0.00, Nucleated RBC % 0.0, Sodium 140, Potassium 3.8, Chloride 110, Carbon Dioxide 26, Anion Gap 4.0 L, BUN 11, Creatinine 0.7, Estimated GFR (MDRD) 88 L, Glucose 77, Calcium 8.1 L, Total Creatine Kinase 13 L, C-Reactive Protein 27.5 H 06/18/24 04:57: WBC 7.8, RBC 3.62 L, Hgb 9.5 L, Hct 30.8 L, MCV 85.1, MCH 26.2 L , MCHC 30.8 L, RDW 15.0, Plt Count 250, MPV 10.5, Neut # (Auto) 6.2, Lymph # (Auto) 0.8 L, [place] # (Auto) 0.7, Eos # (Auto) 0.0, Baso # (Auto) 0.1, Absolute Nucleated RBC 0.00, Nucleated RBC % 0.0, Sodium 139, Potassium 3.4 L, Chloride 108, Carbon Dioxide 25, Anion Gap 6.0, BUN 9, Creatinine 0.6, Estimated GFR (MDRD) 105, Glucose 107 H, Calcium 7.8 L, Phosphorus 3.8, Magnesium 1.8, Total Creatine Kinase 31, C-Reactive Protein 27.5 H, Prealbumin < 3 L, Triglycerides 77 06/18/24 01:34: POC Whole Bld Glucose 133 06/17/24 19:00: WBC 8.2, RBC 3.60 L, Hgb 9.4 L, Hct 29.6 L, MCV 82.2, MCH 26.1 L , MCHC 31.8 L, RDW 14.7, Plt Count 271, MPV 10.2, Neut # (Auto) 6.4, Lymph # (Auto) 0.9 L, [place] # (Auto) 0.8, Eos # (Auto) 0.0, Baso # (Auto) 0.0, Absolute Nucleated RBC 0.00, Nucleated RBC % 0.0, ESR 67 H, Sodium 134 L, Potassium 3.5, Chloride 102, Carbon Dioxide 26, Anion Gap 6.0, BUN 12, Creatinine 0.5 L, Estimated GFR (MDRD) 130, Glucose 124 H, Lactic Acid 0.7, Calcium 8.0 L, Total Bilirubin 0.7, AST 15, ALT 12, Alkaline Phosphatase 104, C-Reactive Protein 27.3 H, Total Protein 5.3 L, Albumin 2.8 L, Globulin 2.5, Albumin/Globulin Ratio 1.1 Lab results reviewed: Yes 06/23/24 05:46 06/23/24 05:46 Meds/Allgy Home Medications Ambulatory Orders Medication Instructions Recorded Confirmed albuterol sulfate 90 mcg/actuation 1 - 2 puff IH PRN PRN Shortness Of 06/13/21 06/18/24 aerosol inhaler (Ventolin HFA) Air/Wheezing cetirizine 10 mg tablet 10 mg PO HS 06/13/21 06/18/24 duloxetine 60 mg capsule,delayed 120 mg PO DAILY 06/13/21 06/18/24 release (Cymbalta) lamotrigine 200 mg tablet 400 mg PO HS 06/13/21 06/18/24 (Lamictal) montelukast 10 mg tablet 1 tab PO QPM 06/13/21 06/18/24 gabapentin 300 mg capsule 300 mg ORAL TID 11/05/22 06/18/24 biotin 5,000 mcg-lutein 10 mg 2 tab PO DAILY 06/13/23 06/18/24 tablet (Biotin Plus) hydroxyzine HCl 50 mg tablet 100 mg PO TID PRN Anxiety 06/13/23 06/18/24 amino acids 5 %-dextrose 15 2,000 ml IV 0 06/21/23 06/18/24 %-electrolytes intravenous solution (Clinimix E) mvi, adult no.4 with vit K 3300 10 ml IV 189906/21/23 06/18/24 unit-150 mcg/10 mL intravenous solution (Infuvite Adult) trace elements Zn 3 mg-Cu 0.3 1 ml IV 189906/21/23 06/18/24 mg-Mn 55 mcg-Se 60 mcg/mL IV solution (Tralement) baclofen 20 mg tablet 20 mg PO DAILY 06/17/24 06/18/24 buprenorphine 20 mcg/hour weekly 1 patch transdermal Q7D 06/17/24 06/18/24 transdermal patch buspirone 5 mg tablet 5 mg PO DAILY 06/17/24 06/18/24 dextroamphetamine sulfate 20 mg 20 mg PO BID 06/17/24 06/18/24 tablet dextroamphetamine-amphetamine 15 15 mg PO QPM 06/17/24 06/18/24 mg tablet fluticasone 500 mcg-salmeterol 50 1 inh inhalation DAILY 06/17/24 06/18/24 mcg/dose blistr powdr for inhalation (César Inhub) fluticasone propionate 50 1 spray intranasal BID 06/17/24 06/18/24 mcg/actuation nasal spray,suspension furosemide 40 mg tablet 40 mg PO DAILY 06/17/24 06/18/24 meloxicam 15 mg tablet 15 mg PO DAILY 06/17/24 06/18/24 cyclobenzaprine 10 mg tablet 5 - 10 mg PO TID PRN muscle spasms 06/18/24 06/18/24 Allergies Allergies Allergy/AdvReac Type Severity Reaction Status Date / Time Penicillins Allergy Severe Anaphylaxis Verified 06/17/24 17:59 morphine Allergy Intermediate Hives Verified 06/17/24 17:59 vancomycin Allergy Intermediate Hives Verified 06/17/24 17:59 [facility] Medical History Medical History Malnutrition Asthma On total parenteral nutrition (TPN) right central line Surgical History Surgical History History of gastric surgery Hx of right BKA Social History Social History Smoking Status: Former smoker If you are a former smoker, when did you quit? (Date/Year): 2014 Do you dip or chew tobacco?: No Do you vape?: No Living arrangement: At home Living Condition: Alone Relationship: Level: Assisted Home Mobility Equipment: Cane, Walker and Wheelchair Do you feel safe in your home environment?: Yes Suffered physical, verbal, emotional, or financial abuse?: No History of Abuse: No ETOH Use: None POLST Patient has POLST: Yes POLST Status: Full Code Anesthesia Exam (Expanded) Exam General: Alert and No acute distress Dental: Other (edentulous) Mouth Openin Fingerbreadth Neck Mobility: Normal Mallampati classification: II Thyromental Distance: 4-6 cm Respiratory: Lungs clear Cardiovascular: Regular rate Plan Problem List (1) Abscess of right shoulder: (2) Sepsis: Qualifiers: Sepsis acute organ dysfunction status: without acute organ dysfunction Sepsis type: methicillin resistant Staphylococcus aureus Qualified Code(s): A 41.02 - Sepsis due to Methicillin resistant Staphylococcus aureus (3) Shoulder pain: Qualifiers: Chronicity: unspecified Laterality: right Qualified Code(s): M25.511 - Pain in right shoulder (4) Hypokalemia: (5) On total parenteral nutrition (TPN): Plan Anesthesia Type: General Consent for Procedure(s) Verified and Reviewed: Yes Code Status: Attempt Resuscitation ASA Classification ASA classification: 3-Severe systemic disease Is this case an emergency?: Yes
[2024-06-23] MEDS ORDERED: PROPOFOL 200 MG/20 ML VIAL IVP ONE (17:32)
[2024-06-23] MEDS ORDERED: ROCURONIUM 50 MG/5 ML VIAL ONE ×2 (17:32→18:37)
[2024-06-23] MEDS ORDERED: LIDOCAINE-PF 2% 10 ML AMP SUBQ ONE (17:32)
[2024-06-23] MEDS ORDERED: KETAMINE 500 MG/10 ML VIAL ONE (17:32)
[2024-06-23] MEDS ORDERED: fentaNYL 100 MCG/2 ML VIAL ONE (17:33)
[2024-06-23] MEDS ORDERED: MIDAZOLAM 2 MG/2 ML VIAL ONE (17:33)
[2024-06-23] MEDS ORDERED: HYDROmorphone 1 MG/ML CARPUJECT ONE (18:33)
[2024-06-23] MEDS ORDERED: PHENYLEPHRINE HCL 0.5 MG/5 ML AMPULE ONE (18:41)
[2024-06-23] MEDS ORDERED: SUGAMMADEX 200 MG/2 ML VIAL IVP ONE (19:02)
--- NOTE | 2024-06-23 19:17 | OPERATIVE REPORT ---
Operative Report General Admit Date: 06/17/24 Procedure Data: Operation Date: 06/23/24 16:00 Proposed Procedures p I&D Abscess, shoulder(Right) - Jennifer Wayne, Actual Procedures p I&D Abscess, shoulder(Right) - Jennifer Wayne DO Pre-Op Diagnosis: R SHOULDER ABSCESS Anesthesia Type General Case Staff Anesthesia Provider: Boom Carrion Assisting Provider: Thang Christiansen Case Times Into Recovery: 06/23/24 19:11 Procedure Start: 06/23/24 18:21 Procedure End: 06/23/24 18:56 Time out: 06/23/24 18:20 Pre-Op Diagnosis: r shoulder abscess Post Op Diagnosis: r shoulder abscess Procedure Note Complications: none Other Other Information/Narrative: Pre-Op Diagnosis: RIGHT SHOULDER ABSCESS Post Op Diagnosis: RIGHT SHOULDER ABSCESS Procedure Note Estimated Blood Loss (ml): 30 Findings: SEE BELOW Complications: NONE Other Other Information/Narrative: The patient was brought to the operating room and placed in supine position. General anesthesia was induced. The position the patient was positioned in the beachchair position. All bony prominences were padded. The neck was in neutral alignment. The right shoulder was prepped and draped in standard sterile fashion. A timeout performed confirming the correct patient, correct procedure, correct extremity, and initials on the operative site. Her prior 4 cm incision was utilized and dissection was taken down through the subcutaneous tissue and purulent material was expressed immediately from the wound and copious amounts. The abscess was explored and all septations were divided. The wound was copiously irrigated. There was a full-thickness rotator cuff tear, so the joint was easily exposed. Again copious amounts of fluid were used to irrigate the joint, the subacromial space as well as the abscess cavity. A curette was used to curette the subcutaneous tissue it was noted that all of the remaining tissue was healthy and bleeding. There is no evidence of any necrotic tissue. After debridement was complete, 2-0 nylon was used in simple interrupted fashion to close the skin. Prior to completely closing the skin packing material was placed into the abscess cavity. There was 1 strip of packing material that was placed. A sterile dressing was applied consisting of Xeroform plain gauze and foam tape. The patient was awoken and taken to the PACU in stable condition. All counts were correct at the end of the case. There were no complications. The patient will be readmitted to the hospitalist and the wound will be repacked every 2-3 days until the cavity starts to decrease in size.
[2024-06-23] MEDS ORDERED: HYDROmorphone 0.5 MG/0.5 ML SYRINGE ONE (19:18)
[2024-06-23] MEDS: HYDROmorphone 0.5 MG/0.5 ML SYRINGE IVP PRN (19:21)
--- NOTE | 2024-06-23 19:53 | ANESTHESIA POST OP EVALUATION ---
Anesthesia Post Eval Post Anesthesia Eval Vitals: Last Vital Signs Temp 36.5 C 06/23/24 19:50 Pulse 70 06/23/24 19:50 Resp 18 06/23/24 19:50 BP 113/69 06/23/24 19:50 Pulse Ox 94 06/23/24 19:50 O2 Flow Rate 1 06/18/24 12:32 CV Function Including HR & BP: Stable Pain Control: Satisfactory Nausea & Vomiting: Negative Mental Status: Baseline Respiratory Status: Airway Patent Hydration Status: Satisfactory Anesthesia Complications: None
[2024-06-23] MEDS: LACTATED RINGERS 1,000 ML IV SCH (20:44)
[2024-06-24 06:28] LABS: BASOPHILS % (AUTO) 0.6 %; EOSINOPHILS # (AUTO) 0.2 10^3/uL (0.0-0.7); EOSINOPHILS % (AUTO) 2.2 %; HGB - HEMOGLOBIN 9.5 g/dL (12.0-16.0); LYMPHOCYTES # (AUTO) 0.9 10^3/uL (1.5-3.5); LYMPHOCYTES % (AUTO) 13.9 %; MEAN CORPUSCULAR HEMOGLOBIN 26.5 pg (27.0-31.0); MEAN CORPUSCULAR HGB CONC 31.7 g/dL (32.0-36.0); MEAN CORPUSCULAR VOLUME 83.8 fL (81.0-99.0); MEAN PLATELET VOLUME 9.9 fL (7.9-10.8); MONOCYTES # (AUTO) 0.5 10^3/uL (0.0-1.0); MONOCYTES % (AUTO) 7.1 %; NEUTROPHILS # (AUTO) 4.8 10^3/uL (1.5-6.6); NEUTROPHILS % (AUTO) 71.9 %; PLT - PLATELET COUNT 368 10^3/uL (130-450); RED BLOOD COUNT 3.58 10^6/uL (4.20-5.40); RED CELL DISTRIBUTION WIDTH 15.7 % (12.0-15.0); WHITE BLOOD COUNT 6.7 x10^3/uL (4.8-10.8)
[2024-06-24 06:41] LABS: ALBUMIN 2.5 g/dL (3.2-5.5); ALBUMIN/GLOBULIN RATIO 0.8 (1.0-2.2); BILIRUBIN,TOTAL 0.3 mg/dL (0.2-1.0); CALCIUM 8.4 mg/dL (8.5-10.3); CREATININE 0.7 mg/dL (0.6-1.3); CRP - C-REACTIVE PROTEIN 9.3 mg/dL (<0.5); POTASSIUM 4.4 mmol/L (3.5-4.5); TOTAL PROTEIN 5.8 g/dL (6.4-8.9)
--- NOTE | 2024-06-24 11:54 | POST OP PROGRESS NOTE ---
Subjective General Admit Date: 06/17/24 Procedure Date: 06/17/24 Post Op Days: 7 Procedure Performed: Incision and debridement right shoulder abscess Other Other Information/Narrative: General Admit Date: 06/17/24 Procedure Date: 06/17/24 and 06/23/24 Post Op Days: 01/25 Procedure Performed: Incision and debridement right shoulder abscess x2 53 year old female who is post operative day 01/25 from irrigation and debridement of right shoulder for right shoulder abscess on 06/17/24 and 06/23/24. Cultures were positive for MRSA. She reports tolerable right shoulder pain. She denies chest pain, shortness of breath, nausea and emesis. Wound cultures from the operating room are positive for MRSA. Prior to development of abscess she was completing physical therapy for right rotator cuff tear at [facility]. She had limited motion and pain in the shoulder prior to abscess development. PE: Pleasant malnourished female in NAD. R shoulder: Dressing in place. Clean and dry. No surrounding erythema, warmth or drainage. SILT axillary/r/u/m Fires epl/fpl/io Rad pulse 2+ and brisk cap refill. Total protein 5.8 Albumin 2.5 ABX Reporting Has patient been on IV antibiotics over the past 48 hours?: Yes Ortho Surgical Progress Note Problem List Problem List: Right shoulder abscess with MRSA septicemia in a malnourished patient. - Dressing change tomorrow - Continue IV antibiotics, - Trend CRP daily - continues to downtrend - Sling to be used as needed for comfort - DVT prophylaxis with lovenox and SCDs, ambulate and up to chair as able - Follow up with orthopedic clinic 14 days after surgery for suture removal - Pain management per medicine team - Needs parenteral nutrition. I have discussed different options with her primary team. Ortho Surgical Progress Note Problem List Discharge Instructions: * Always ambulate with front wheeled walker until instructed otherwise by your surgeon. Please refer to the booklet provided at [facility] for instructions for ambulation. You can weight-bear as tolerated on the affected extremity. * Avoid crossing your legs when sitting in low chairs to reduce chance of hip dislocation * Follow the pre-operatively agreed upon pain regimen described in the [facility] booklet. As a reminder, the discussed medications include using acetaminophen, ibuprofen, oxycodone and tramadol. * Ice area to decrease pain and swelling * Take Aspirin 81 mg twice daily for 6 weeks for blood clot prevention * Leave dressing in place until follow up in office. You can shower with the dressing in place if it is kept dry and neat * Please call the office if you experience fever, chills, chest pain, shortness of breath, nausea, vomiting, drainage or bleeding * You are scheduled for follow-up with the orthopedic clinic in 5 days * Appreciate input from hospitalist team for management of chronic medical conditions
--- NOTE | 2024-06-24 14:41 | PROVIDER PROGRESS NOTE ---
Subjective Prog Note Date Prog Note Date: 06/24/24 Prog Note Time: 11:00 Subjective Pt reports feeling: Improved Subjective: Feels slightly better overnight. Her pain is well-controlled. She has not been running any fevers. Her anxiety is under control she has concerns about her TPN. Current Medications Current Medications Current Medications: Current Medications Generic Name Dose Route Start Last Admin Trade Name Dwayne PRN Reason Stop Dose Admin Acetaminophen 1,000 mg 06/18/24 06:00 06/24/24 14:21 Acetaminophen 500 Mg Tablet PO 1,000 mg TID MY Administration Baclofen 20 mg 06/17/24 22:00 06/24/24 14:22 Baclofen 10 Mg Tablet PO 20 mg TID MY Administration Buspirone HCl 5 mg 06/19/24 09:00 06/24/24 09:11 Buspirone 5 Mg Tablet PO 5 mg DAILY MY Administration Cetirizine HCl 10 mg 06/18/24 21:00 06/23/24 21:03 Cetirizine 10 Mg Tablet PO 10 mg HS MY Administration Cyclobenzaprine HCl 5 mg 06/18/24 14:01 06/23/24 08:14 Cyclobenzaprine 10 Mg Tablet PO 5 mg TID PRN Administration muscle spasms Daptomycin 500 mg 06/18/24 14:45 06/24/24 09:04 Daptomycin 500 Mg Vial IVP 500 mg DAILY MY Administration Docusate Sodium 100 mg 06/18/24 09:00 06/24/24 09:09 Docusate Sodium 100 Mg Capsule PO Not Given BID MY Duloxetine HCl 120 mg 06/19/24 09:00 06/24/24 09:11 Duloxetine 60 Mg Capsule PO 120 mg DAILY MY Administration Enoxaparin Sodium 40 mg 06/18/24 13:00 06/24/24 09:04 Enoxaparin 40 Mg/0.4 Ml Syringe SUBQ 40 mg DAILY MY Administration Furosemide 40 mg 06/19/24 09:00 06/24/24 09:10 Furosemide 40 Mg Tablet PO Not Given DAILY MY Gabapentin 300 mg 06/18/24 14:00 06/24/24 14:22 Gabapentin 300 Mg Capsule PO 300 mg TID MY Administration Hydromorphone HCl 0.5 mg 06/18/24 11:25 06/22/24 23:57 Hydromorphone 0.5 Mg/0.5 Ml Syringe IVP 0.5 mg Q2H PRN Administration Severe Pain (Level 7-10) Hydroxyzine Pamoate 100 mg 06/23/24 14:00 06/24/24 14:22 Hydroxyzine Pamoate 25 Mg Capsule PO 100 mg TID MY Administration Multivitamins 10 ml/ Amino 1,010 mls @ 84.167 mls/hr 06/21/24 19:00 06/23/24 20:13 Acids/Electrolytes/Dextrose IV 06/25/24 07:00 Not Given 1900 [facility] Fat Emulsion Intravenous 250 mls @ 21 mls/hr 06/21/24 19:00 06/24/24 14:23 Intralipid 20% IV 06/25/24 06:59 Infused 1900 [facility] Infusion Amino Acids/Electrolytes/Dextrose 1,000 mls @ 83.333 mls/hr 06/22/24 07:00 06/23/24 20:00 Clinimix E 4.25%-5% Solution IV 06/25/24 06:59 83.33 mls/hr 0700 MY Administration Ibuprofen 600 mg 06/23/24 14:00 06/24/24 12:56 Ibuprofen 600 Mg Tablet PO 600 mg Q6HR MY Administration Lamotrigine 400 mg 06/19/24 21:00 06/23/24 21:03 Lamotrigine 100 Mg Tablet PO 400 mg HS MY Administration Montelukast Sodium 10 mg 06/18/24 21:00 06/23/24 21:03 Montelukast 10 Mg Tablet PO 10 mg QPM MY Administration Ondansetron HCl 4 mg 06/17/24 21:51 06/21/24 14:48 Ondansetron 4 Mg/2 Ml Vial IVP 4 mg Q6HR PRN Administration Nausea / Vomiting Oxycodone HCl 5 mg 06/18/24 11:25 06/24/24 04:03 Oxycodone 5 Mg Tablet PO 5 mg Q4HR PRN Administration Moderate Pain (Level 4-6) Buprenorphine 20 Mcg 1 each 06/18/24 15:00 06/18/24 14:50 /Hour Patch Weekly TOP Not Given Q7D MY Polyethylene Glycol 17 gm 06/19/24 09:00 06/24/24 09:09 Polyethylene Glycol 3350 17 Gm Packet PO Not Given DAILY [facility] Potassium Chloride 20 meq 06/22/24 09:15 06/24/24 09:11 Potassium Chloride 20 Meq Tablet PO 20 meq DAILYWM MY Administration Sodium Chloride 10 ml 06/17/24 21:51 06/22/24 21:33 Sodium Chloride Flush 0.9% 10 Ml Syringe IVP 10 ml PRN PRN Administration NEEDED PER PROVIDER ORDERS Sodium Chloride 10 ml 06/18/24 01:00 06/24/24 09:04 Sodium Chloride Flush 0.9% 10 Ml Syringe IVP 10 ml 0100,0900,1700 MY Administration Objective Vital Signs/Intake & Output Reviewed Vital Signs: Yes Vital Signs: Vital Signs x48h Temp Pulse Resp BP Pulse Ox 06/22/24 23:49 36.7 C 72 16 140/75 H 94 Intake & Output: Intake & Output 06/22/24 06/23/24 06/24/24 06/25/24 05:59 05:59 05:59 05:59 Intake Total 3180 / 3180 2979 / 2979 2280 / 2280 350 / 350 Output Total 2005 2250 / 2250 3050 / 3050 800 / 800 Balance 1174 / 1174 729 / 729 -770 / -770 -450 / -450 Weight (kg) 67 kg Objective General Appearance: positive No acute distress and Alert Eyes Bilateral: positive Normal inspection and PERRL ENT: positive No signs of dehydration Neck: positive Nml inspection Respiratory: positive Chest non-tender, No respiratory distress and Breath sounds nml Cardiovascular: positive Regular rate & rhythm and No murmur Abdomen: positive Non-tender, Nml bowel sounds and No distention Skin: positive Color nml Extremities: positive Nml appearance and Other (Limited ROM in right arm due to preexisting rotator cuff tear and current shoulder abscess being treated.I examined the suture line with Dr. Wayne this afternoon. There is purulent drainage expressed from the suture line.); negative Non-tender, Full ROM or Calf tenderness Neurologic/Psychiatric: positive Oriented x3, CN's nml (2-12), Motor nml, Sensation nml and Mood/affect nml Lab Results 06/24/24 05:50 06/24/24 05:50 Other Labs: Lab Results x24hrs 06/24/24 06/23/24 Range/Units 05:50 05:46 WBC 6.7 (4.8-10.8) x10^3/uL RBC 3.58 L (4.20-5.40) 10^6/uL Hgb 9.5 L (12.0-16.0) g/dL Hct 30.0 L (37.0-47.0) % MCV 83.8 (81.0-99.0) fL MCH 26.5 L (27.0-31.0) pg MCHC 31.7 L (32.0-36.0) g/dL RDW 15.7 H (12.0-15.0) % Plt Count 368 (130-450) 10^3/uL MPV 9.9 (7.9-10.8) fL Neut # (Auto) 4.8 (1.5-6.6) 10^3/uL Lymph # (Auto) 0.9 L (1.5-3.5) 10^3/uL Rogers # (Auto) 0.5 (0.0-1.0) 10^3/uL Eos # (Auto) 0.2 (0.0-0.7) 10^3/uL Baso # (Auto) 0.0 (0.0-0.1) 10^3/uL Absolute Nucleated RBC 0.00 x10^3/uL Nucleated RBC % 0.0 /100WBC Sodium 137 (135-145) mmol/L Potassium 4.4 (3.5-4.5) mmol/L Chloride 101 (101-111) mmol/L Carbon Dioxide 32 (21-32) mmol/L Anion Gap 4.0 L (6-13) BUN 15 (6-20) mg/dL Creatinine 0.7 (0.6-1.3) mg/dL Estimated GFR (MDRD) 88 L (>89) Glucose 103 (74-104) mg/dL Calcium 8.4 L (8.5-10.3) mg/dL Total Bilirubin 0.3 (0.2-1.0) mg/dL AST 13 (10-42) IU/L ALT 8 L (10-60) IU/L Alkaline Phosphatase 113 (42-121) IU/L C-Reactive Protein 9.3 H (<0.5) mg/dL Total Protein 5.8 L (6.4-8.9) g/dL Albumin 2.5 L (3.2-5.5) g/dL Globulin 3.3 (2.1-4.2) g/dL Albumin/Globulin Ratio 0.8 L (1.0-2.2) Triglycerides 322 mg/dL ABX Reporting Has patient been on IV antibiotics over the past 48 hours?: Yes Sepsis Event Note (H) Evaluation Current Stage of Sepsis: Sepsis Possible source of Sepsis: positive Bone/Joint, Skin/soft tissue and Wound Sepsis Criteria Sepsis Criteria: Suspected or Documented Assessment/Plan Problem List (1) Abscess of right shoulder: Impression: Underwent I&D on 06/17/2024 with wound packing. REdo on 06/23. 06/24/24. Seen by humphrey Penn. no concerns. Dressing change will be done by hospitalist 06/25. I have discussed her care with Dr Wayne today 06/23/24: There is purulent drainage coming from the suture line. She is going back to the operating room this afternoon for reopening of the joint debridement and washout. I discussed the patient with Dr. Wayne today. I will change the dressing on Monday 06/25 and then orthopedics will follow-up with the patient. 06/21/2024: Wound packing changed yesterday by Humphrey ZEE. Abscess cultures pending. Blood cultures showing MRSA (2) Sepsis: Impression: Reported to be febrile up to 103 F, no record of this in the flowsheets. Was placed on broad-spectrum coverage with cefepime, daptomycin, clindamycin Starting 06/18/2024. Blood cultures have since shown MRSA. De-escalated to Dapto. Central line has been removed. She will need a negative blood culture before we can replace it. Blood culture will have 2 days of growth on 06/24. We will likely replace the PICC line on 06/25. I have discussed this with anesthesia today. She will need to complete 2 weeks of daptomycin for positive blood cultures. She has a history of elevated CK in the past with daptomycin. I rechecked her CK it is 14. Her CRP continues to decrease. Laboratory Tests 06/17/24 06/18/24 06/19/24 19:00 04:57 05:16 Total Creatine Kinase 31 13 L C-Reactive Protein 27.3 H 27.5 H 27.5 H 06/20/24 06/21/24 06/22/24 05:29 04:57 05:22 Total Creatine Kinase C-Reactive Protein 24.4 H 17.9 H 11.4 H 06/22/24 06/23/24 06/24/24 10:44 05:46 05:50 Total Creatine Kinase 14 L C-Reactive Protein 10.1 H 9.3 H Qualifiers: Sepsis acute organ dysfunction status: without acute organ dysfunction Sepsis type: methicillin resistant Staphylococcus aureus Qualified Code(s): A 41.02 - Sepsis due to Methicillin resistant Staphylococcus aureus (3) Shoulder pain: Impression: Patient has chronic shoulder pain due to torn rotator cuff. She is also experiencing pain from the abscess. Patient has scheduled and PRN pain management medication orders in place. Qualifiers: Chronicity: unspecified Laterality: right Qualified Code(s): M25.511 - Pain in right shoulder (4) Hypokalemia: Impression: She takes 40 mg Lasix at home. We have continued her home dosing of Lasix while she has been here. I am continuing her on 20 mill equivalents of potassium daily. I will recheck her BMP in the AM. 2 (5) On total parenteral nutrition (TPN): Impression: Patient was on residential TPN via CVC due to hx of gastric surgery. 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 This was done when she was in her 30s. She has been on TPN for this long. It is unclear to me why she is not on a different method of nutrition but this is her routine and has been for in excess of 20 years. She is managed by a cook cashier food prep in the outpatient environment. Her CVC had to be removed due to being a possible source of her MRSA infection. Patient is able to eat but it is suspected her total intake and overall nutrition will be limited. We hope to have a new CVC established prior to discharge to resume her standard TPN administration, but that will be dependent on her bacteremia/blood culture results. Will continue to monitor for signs of poor nutrition and encourage patient to intake what she can until TPN can be resumed. She is currently on PPN. Blood cultures are pending. NGTD x 2d Availability of TPN/PPN products is of great concern at this point. This is due to a national shortage. She is currently on PPN and will be on this until about 7:00 tonight. She should be able to get a PICC line tomorrow due to fact that her blood cultures have been negative for 48 hours at this point ( today is Day- service not available). At that point we can use her own home supply of TPN. We currently have one of her bags here in the hospital which will on 06/26. Patient will be able to bring more of her home supply via her son here to the hospital in the next day or so so she should not have any major gaps in her nutrition aside from the fact that the PPN is not as robust therapy as the TPN. I have spent 55 minutes in the care of this patient today. This includes time [id number], review and ordering of diagnostic imaging and laboratory studies, discussion with ortho sx Monitoring the patient's signs symptoms, evaluation of medication effectiveness and patient's response to treatment.
--- NOTE | 2024-06-25 09:17 | ANESTHESIA PROCEDURE NOTE ---
Anesth Central Line Template Central Line Procedure Date: 06/25/24 Central Line Preparation: Consent Obtained, Time out completed, Ultrasound used and Sterile prep and drape Central line location: Left Basilic Central line type: PICC Single Lumen Central line catheter tip site resides: [facility], right Central line aftercare: Secured, Placement confirmed, No pneumothorax, No complications, Bundle checklist complete and Pt tolerated well
--- NOTE | 2024-06-25 09:17 | XRAY Report ---
PROCEDURE: XR Chest for Line Placement INDICATIONS: PICC line TECHNIQUE: One view of the chest was acquired. COMPARISON: 06/17/2024 FINDINGS: Surgical changes and devices: A left PICC with tip projecting over the lower SVC. There are chest wa ll clips. Glenoid surgical anchors. Lungs and pleura: Low lung volumes. Mildly prominent interstitium. No drainable effusions Possible tiny nodule in the right midlung may represent a granuloma. Mediastinum: Normal heart size Bones and chest wall: Unremarkable IMPRESSION: A left PICC is seen with tip projecting over lower SVC. Reviewed by: Rufus Parham MD on 06/25/2024 9:16 AM PST Approved by: Rufus Parham MD on 06/25/2024 9:16 AM PST Station ID: [id number]
--- NOTE | 2024-06-25 09:23 | CONSULTATION NOTE ---
Consultation Report: L 4Fr single lumen PICC line placed under sterile technique. U/S guided and placement confirmed with port CXR. Left side used due to infection in R shoulder, dressings, etc. Line trimmed to 44 cm. Pt tolerated well, NAC. verified line draws blood and flushes easily. Statlock and sterile dressing applied. [facility] Medical History Medical History Malnutrition Asthma On total parenteral nutrition (TPN) right central line Surgical History Surgical History History of gastric surgery Hx of right BKA Social History Social History Smoking Status: Former smoker If you are a former smoker, when did you quit? (Date/Year): 2014 Do you dip or chew tobacco?: No Do you vape?: No Living arrangement: At home Living Condition: Alone Relationship: Level: Assisted Home Mobility Equipment: Cane, Walker and Wheelchair Do you feel safe in your home environment?: Yes Suffered physical, verbal, emotional, or financial abuse?: No History of Abuse: No ETOH Use: None POLST Patient has POLST: Yes POLST Status: Full Code Conclusion/Plan Problem List (1) Abscess of right shoulder: (2) Sepsis: Qualifiers: Sepsis acute organ dysfunction status: without acute organ dysfunction Sepsis type: methicillin resistant Staphylococcus aureus Qualified Code(s): A 41.02 - Sepsis due to Methicillin resistant Staphylococcus aureus (3) Shoulder pain: Qualifiers: Chronicity: unspecified Laterality: right Qualified Code(s): M25.511 - Pain in right shoulder (4) Hypokalemia: (5) On total parenteral nutrition (TPN): Lab Results Lab results reviewed: Yes 06/24/24 05:50 06/24/24 05:50 Meds/Allgy Home Medications Ambulatory Orders Medication Instructions Recorded Confirmed albuterol sulfate 90 mcg/actuation 1 - 2 puff IH PRN PRN Shortness Of 06/13/21 06/18/24 aerosol inhaler (Ventolin HFA) Air/Wheezing cetirizine 10 mg tablet 10 mg PO HS 06/13/21 06/18/24 duloxetine 60 mg capsule,delayed 120 mg PO DAILY 06/13/21 06/18/24 release (Cymbalta) lamotrigine 200 mg tablet 400 mg PO HS 06/13/21 06/18/24 (Lamictal) montelukast 10 mg tablet 1 tab PO QPM 06/13/21 06/18/24 gabapentin 300 mg capsule 300 mg ORAL TID 11/05/22 06/18/24 biotin 5,000 mcg-lutein 10 mg 2 tab PO DAILY 06/13/23 06/18/24 tablet (Biotin Plus) hydroxyzine HCl 50 mg tablet 100 mg PO TID PRN Anxiety 06/13/23 06/18/24 amino acids 5 %-dextrose 15 2,000 ml IV 189906/21/23 06/18/24 %-electrolytes intravenous solution (Clinimix E) mvi, adult no.4 with vit K 3300 10 ml IV 189906/21/23 06/18/24 unit-150 mcg/10 mL intravenous solution (Infuvite Adult) trace elements Zn 3 mg-Cu 0.3 1 ml IV 189906/21/23 06/18/24 mg-Mn 55 mcg-Se 60 mcg/mL IV solution (Tralement) baclofen 20 mg tablet 20 mg PO DAILY 06/17/24 06/18/24 buprenorphine 20 mcg/hour weekly 1 patch transdermal Q7D 06/17/24 06/18/24 transdermal patch buspirone 5 mg tablet 5 mg PO DAILY 06/17/24 06/18/24 dextroamphetamine sulfate 20 mg 20 mg PO BID 06/17/24 06/18/24 tablet dextroamphetamine-amphetamine 15 15 mg PO QPM 06/17/24 06/18/24 mg tablet fluticasone 500 mcg-salmeterol 50 1 inh inhalation DAILY 06/17/24 06/18/24 mcg/dose blistr powdr for inhalation (Wixela Inhub) fluticasone propionate 50 1 spray intranasal BID 06/17/24 06/18/24 mcg/actuation nasal spray,suspension furosemide 40 mg tablet 40 mg PO DAILY 06/17/24 06/18/24 meloxicam 15 mg tablet 15 mg PO DAILY 06/17/24 06/18/24 cyclobenzaprine 10 mg tablet 5 - 10 mg PO TID PRN muscle spasms 06/18/24 06/18/24 Allergies Allergies Allergy/AdvReac Type Severity Reaction Status Date / Time Penicillins Allergy Severe Anaphylaxis Verified 06/17/24 17:59 morphine Allergy Intermediate Hives Verified 06/17/24 17:59 vancomycin Allergy Intermediate Hives Verified 06/17/24 17:59 Anesthesia Exam (Expanded) Exam Dental: Other (edentulous) Mallampati classification: I
--- NOTE | 2024-06-25 13:24 | PROVIDER PROGRESS NOTE ---
Subjective Prog Note Date Prog Note Date: 06/25/24 Prog Note Time: 08:30 Subjective Pt reports feeling: No change Subjective: She is doing fine today. Wants to go home and worried about the situation with her TPN. She is not able to get additional TPN from her supplier until out of the hospital. We have limited supply here. Otherwise, some generalized neuropathy pain and would like gabapentin dose increased, to home dosing. Current Medications Current Medications Current Medications: Current Medications Generic Name Dose Route Start Last Admin Trade Name Freq PRN Reason Stop Dose Admin Acetaminophen 1,000 mg 06/18/24 06:00 06/25/24 05:49 Acetaminophen 500 Mg Tablet PO 1,000 mg TID MY Administration Baclofen 20 mg 06/17/24 22:00 06/25/24 05:49 Baclofen 10 Mg Tablet PO 20 mg TID MY Administration Buspirone HCl 5 mg 06/19/24 09:00 06/25/24 09:15 Buspirone 5 Mg Tablet PO 5 mg DAILY MY Administration Cetirizine HCl 10 mg 06/18/24 21:00 06/24/24 21:03 Cetirizine 10 Mg Tablet PO 10 mg HS MY Administration Cyclobenzaprine HCl 5 mg 06/18/24 14:01 06/23/24 08:14 Cyclobenzaprine 10 Mg Tablet PO 5 mg TID PRN Administration muscle spasms Daptomycin 500 mg 06/18/24 14:45 06/25/24 09:15 Daptomycin 500 Mg Vial IVP 500 mg DAILY MY Administration Docusate Sodium 100 mg 06/18/24 09:00 06/25/24 09:15 Docusate Sodium 100 Mg Capsule PO Not Given BID MY Duloxetine HCl 120 mg 06/19/24 09:00 06/25/24 09:14 Duloxetine 60 Mg Capsule PO 120 mg DAILY MY Administration Enoxaparin Sodium 40 mg 06/18/24 13:00 06/25/24 09:15 Enoxaparin 40 Mg/0.4 Ml Syringe SUBQ 40 mg DAILY MY Administration Furosemide 40 mg 06/19/24 09:00 06/25/24 09:15 Furosemide 40 Mg Tablet PO Not Given DAILY MY Gabapentin 300 mg 06/18/24 14:00 06/25/24 05:49 Gabapentin 300 Mg Capsule PO 300 mg TID MY Administration Gabapentin 300 mg 06/25/24 13:03 Gabapentin 300 Mg Capsule PO TID PRN PAIN 5-7 Hydromorphone HCl 0.5 mg 06/18/24 11:25 06/22/24 23:57 Hydromorphone 0.5 Mg/0.5 Ml Syringe IVP 0.5 mg Q2H PRN Administration Severe Pain (Level 7-10) Hydroxyzine Pamoate 100 mg 06/23/24 14:00 06/25/24 05:48 Hydroxyzine Pamoate 25 Mg Capsule PO 100 mg TID MY Administration Ibuprofen 600 mg 06/23/24 14:00 06/25/24 12:20 Ibuprofen 600 Mg Tablet PO 600 mg Q6HR MY Administration Lamotrigine 400 mg 06/19/24 21:00 06/24/24 21:04 Lamotrigine 100 Mg Tablet PO 400 mg HS MY Administration Montelukast Sodium 10 mg 06/18/24 21:00 06/24/24 21:04 Montelukast 10 Mg Tablet PO 10 mg QPM MY Administration Ondansetron HCl 4 mg 06/17/24 21:51 06/25/24 12:26 Ondansetron 4 Mg/2 Ml Vial IVP 4 mg Q6HR PRN Administration Nausea / Vomiting Oxycodone HCl 5 mg 06/18/24 11:25 06/25/24 12:26 Oxycodone 5 Mg Tablet PO 5 mg Q4HR PRN Administration Moderate Pain (Level 4-6) Buprenorphine 20 Mcg 1 each 06/18/24 15:00 06/18/24 14:50 /Hour Patch Weekly TOP Not Given Q7D MY Polyethylene Glycol 17 gm 06/19/24 09:00 06/25/24 09:15 Polyethylene Glycol 3350 17 Gm Packet PO Not Given DAILY MY Potassium Chloride 20 meq 06/22/24 09:15 06/25/24 09:14 Potassium Chloride 20 Meq Tablet PO Not Given DAILYWM MY Sodium Chloride 10 ml 06/17/24 21:51 06/22/24 21:33 Sodium Chloride Flush 0.9% 10 Ml Syringe IVP 10 ml PRN PRN Administration NEEDED PER PROVIDER ORDERS Sodium Chloride 10 ml 06/18/24 01:00 06/25/24 09:16 Sodium Chloride Flush 0.9% 10 Ml Syringe IVP 10 ml 0100,0900,1700 MY Administration Objective Vital Signs/Intake & Output Reviewed Vital Signs: Yes Vital Signs: Vital Signs x48h Temp Pulse Resp BP Pulse Ox 06/25/24 07:28 36.5 C 73 15 130/75 96 Intake & Output: Intake & Output 06/23/24 06/24/24 06/25/24 06/26/24 05:59 05:59 05:59 05:59 Intake Total 2979 / 2979 2280 / 2280 1936 / 1936 836 / 836 Output Total 2250 / 2250 3050 / 3050 2350 / 2350 0 / 0 Balance 729 / 729 -770 / -770 -414 / -414 836 / 836 Weight (kg) 67 kg Objective General Appearance: positive No acute distress and Alert Eyes Bilateral: positive Normal inspection and PERRL ENT: positive No signs of dehydration Neck: positive Nml inspection Respiratory: positive Chest non-tender, No respiratory distress and Breath sounds nml Cardiovascular: positive Regular rate & rhythm and No murmur Abdomen: positive Non-tender, Nml bowel sounds and No distention Skin: positive Color nml Extremities: positive Nml appearance and Other (Limited ROM in right arm due to preexisting rotator cuff tear and current shoulder abscess being treated.I changed the dressing today. There is moderate serosanguinous drainage. Small amount of pus. repacked. top dressing replaced); negative Non-tender, Full ROM or Calf tenderness Neurologic/Psychiatric: positive Oriented x3, CN's nml (2-12), Motor nml, Sensation nml and Mood/affect nml Lab Results 06/24/24 05:50 06/24/24 05:50 Other Labs: Lab Results x24hrs 06/25/24 Range/Units 05:26 C-Reactive Protein 13.3 H (<0.5) mg/dL ABX Reporting Has patient been on IV antibiotics over the past 48 hours?: Yes Sepsis Event Note (H) Evaluation Current Stage of Sepsis: Sepsis Possible source of Sepsis: positive Bone/Joint, Skin/soft tissue and Wound Sepsis Criteria Sepsis Criteria: Suspected or Documented Assessment/Plan Problem List (1) Abscess of right shoulder: Impression: Underwent I&D on 06/17/2024 with wound packing. REdo on 06/23. 06/25/24: Dressing and packing changed today. There is serosanguineous drainage on the top dressing. There is a small amount of pus on the packing. The joint cavity was packed tightly with 1 inch plain gauze. I placed Xeroform on top of this and a bulky 4 x 4 dressing secured with tape. There is no foul smell. There is no cellulitis. I am able to express a small amount of thin drainage from the wound. Discussed very briefly with Dr Wayne who will change the packing on 06/27. 06/24/24. Seen by humphrey Penn. no concerns. Dressing change will be done by hospitalist 06/25. I have discussed her care with Dr Wayne today 06/23/24: There is purulent drainage coming from the suture line. She is going back to the operating room this afternoon for reopening of the joint debridement and washout. I discussed the patient with Dr. Wayne today. I will change the dressing on Monday 06/25 and then orthopedics will follow-up with the patient. 06/21/2024: Wound packing changed yesterday by Humphrey ZEE. Abscess cultures pending. Blood cultures showing MRSA (2) Sepsis: Impression: Reported to be febrile up to 103 F, no record of this in the flowsheets. At the time of admission. Was placed on broad-spectrum coverage with cefepime, daptomycin, clindamycin Starting 06/18/2024. Blood cultures have since shown MRSA. De-escalated to Dapto. Central line has been removed. She will need a negative blood culture before we can replace it. Blood cultures with no growth x 3 days. PICC was replaced on 06/25 She will need to complete 2 weeks of daptomycin for positive blood cultures. She has a history of elevated CK in the past with daptomycin. I rechecked her CK it is 14 on 06/22 .. Needs weekly CKs while on daptomycin. Her CRP has been downtrending until today. WBC remains normal. Laboratory Tests 06/22/24 06/23/24 06/24/24 05:22 05:46 05:50 C-Reactive Protein 11.4 H 10.1 H 9.3 H 06/25/24 05:26 C-Reactive Protein 13.3 H Qualifiers: Sepsis acute organ dysfunction status: without acute organ dysfunction Sepsis type: methicillin resistant Staphylococcus aureus Qualified Code(s): A 41.02 - Sepsis due to Methicillin resistant Staphylococcus aureus (3) Shoulder pain: Impression: Patient has chronic shoulder pain due to torn rotator cuff. She is also experiencing pain from the abscess. Patient has scheduled and PRN pain management medication orders in place. Qualifiers: Chronicity: unspecified Laterality: right Qualified Code(s): M25.511 - Pain in right shoulder (4) Hypokalemia: Impression: She takes 40 mg Lasix at home. We have continued her home dosing of Lasix while she has been here. I am continuing her on 20 mill equivalents of potassium daily. I will recheck her BMP in the AM. Laboratory Tests 06/22/24 06/23/24 06/24/24 05:22 05:46 05:50 Potassium 3.3 L 3.9 4.4 (5) On total parenteral nutrition (TPN): Impression: Patient was on [facility] T[facility] via CVC due to hx of gastric surgery. 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 This was done when she was in her 30s. She has been on TPN for this long. It is unclear to me why she is not on a different method of nutrition but this is her routine and has been for in excess of 20 years. 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 Her CVC had to be removed due to being a possible source of her MRSA infection. Patient is able to eat but it is suspected her total intake and overall nutrition will be limited. We hope to have a new CVC established prior to discharge to resume her standard TPN administration, but that will be dependent on her bacteremia/blood culture results. Will continue to monitor for signs of poor nutrition and encourage patient to intake what she can until TPN can be resumed. She is currently on PPN. Blood cultures are pending. NGTD x 2d Availability of TPN/PPN products is of great concern at this point. This is due to a national shortage. She is currently on PPN and will be on this until about 7:00 tonight. She should be able to get a PICC line tomorrow due to fact that her blood cultures have been negative for 48 hours at this point ( [facility] At that point we can use her own home supply of TPN. We currently have one of her bags here in the hospital which will on 06/26. Patient will be able to bring more of her home supply via her son here to the hospital in the next day or so so she should not have any major gaps in her nutrition aside from the fact that the PPN is not as robust therapy as the TPN. I have spent 55 minutes in the care of this patient today. This includes time [id number], review and ordering of diagnostic imaging and laboratory studies, discussion with ortho sx Monitoring the patient's signs symptoms, evaluation of medication effectiveness and patient's response to treatment.
[2024-06-25] MEDS: GABAPENTIN 300 MG CAPSULE PO PRN (14:23)
[2024-06-25] MEDS: [UNRECOGNIZED DRUG - NUTRITION] IV SCH (21:19)
[2024-06-26 06:09] LABS: BASOPHILS # (AUTO) 0.1 10^3/uL (0.0-0.1); BASOPHILS % (AUTO) 0.7 %; EOSINOPHILS # (AUTO) 0.2 10^3/uL (0.0-0.7); EOSINOPHILS % (AUTO) 2.5 %; HCT - HEMATOCRIT 28.1 % (37.0-47.0); HGB - HEMOGLOBIN 8.6 g/dL (12.0-16.0); LYMPHOCYTES # (AUTO) 1.2 10^3/uL (1.5-3.5); LYMPHOCYTES % (AUTO) 17.2 %; MEAN CORPUSCULAR HEMOGLOBIN 25.9 pg (27.0-31.0); MEAN CORPUSCULAR HGB CONC 30.6 g/dL (32.0-36.0); MEAN CORPUSCULAR VOLUME 84.6 fL (81.0-99.0); MEAN PLATELET VOLUME 9.7 fL (7.9-10.8); MONOCYTES # (AUTO) 0.4 10^3/uL (0.0-1.0); MONOCYTES % (AUTO) 5.1 %; NEUTROPHILS % (AUTO) 72.5 %; PLT - PLATELET COUNT 380 10^3/uL (130-450); RED BLOOD COUNT 3.32 10^6/uL (4.20-5.40); WHITE BLOOD COUNT 6.9 x10^3/uL (4.8-10.8)
[2024-06-26 06:21] LABS: CRP - C-REACTIVE PROTEIN 8.9 mg/dL (<0.5)
[2024-06-26 06:50] LABS: CALCIUM 8.7 mg/dL (8.5-10.3); CREATININE 0.7 mg/dL (0.6-1.3); POTASSIUM 4.8 mmol/L (3.5-4.5)
--- NOTE | 2024-06-26 07:26 | PROVIDER PROGRESS NOTE ---
Subjective Prog Note Date Prog Note Date: 06/26/24 Prog Note Time: 07:24 Subjective Pt reports feeling: No change Subjective: She is doing well this AM, She want to go home. She understands what the barriers are to this at this time. Current Medications Current Medications Current Medications: Current Medications Generic Name Dose Route Start Last Admin Trade Name Freq PRN Reason Stop Dose Admin Acetaminophen 1,000 mg 06/18/24 06:00 06/26/24 05:26 Acetaminophen 500 Mg Tablet PO 1,000 mg TID MY Administration Baclofen 20 mg 06/17/24 22:00 06/26/24 05:26 Baclofen 10 Mg Tablet PO 20 mg TID MY Administration Buspirone HCl 5 mg 06/19/24 09:00 06/25/24 09:15 Buspirone 5 Mg Tablet PO 5 mg DAILY MY Administration Cetirizine HCl 10 mg 06/18/24 21:00 06/25/24 21:25 Cetirizine 10 Mg Tablet PO 10 mg HS MY Administration Cyclobenzaprine HCl 5 mg 06/18/24 14:01 06/26/24 02:19 Cyclobenzaprine 10 Mg Tablet PO 5 mg TID PRN Administration muscle spasms Daptomycin 500 mg 06/18/24 14:45 06/25/24 09:15 Daptomycin 500 Mg Vial IVP 500 mg DAILY MY Administration Docusate Sodium 100 mg 06/18/24 09:00 06/25/24 21:21 Docusate Sodium 100 Mg Capsule PO Not Given BID MY Duloxetine HCl 120 mg 06/19/24 09:00 06/25/24 09:14 Duloxetine 60 Mg Capsule PO 120 mg DAILY MY Administration Enoxaparin Sodium 40 mg 06/18/24 13:00 06/25/24 09:15 Enoxaparin 40 Mg/0.4 Ml Syringe SUBQ 40 mg DAILY MY Administration Furosemide 40 mg 06/19/24 09:00 06/25/24 09:15 Furosemide 40 Mg Tablet PO Not Given DAILY MY Gabapentin 300 mg 06/18/24 14:00 06/26/24 05:26 Gabapentin 300 Mg Capsule PO 300 mg TID MY Administration Gabapentin 300 mg 06/25/24 13:03 06/26/24 05:27 Gabapentin 300 Mg Capsule PO 300 mg TID PRN Administration PAIN 5-7 Hydromorphone HCl 0.5 mg 06/18/24 11:25 06/22/24 23:57 Hydromorphone 0.5 Mg/0.5 Ml Syringe IVP 0.5 mg Q2H PRN Administration Severe Pain (Level 7-10) Hydroxyzine Pamoate 100 mg 06/23/24 14:00 06/26/24 05:26 Hydroxyzine Pamoate 25 Mg Capsule PO 100 mg TID MY Administration Multivitamins 10 ml/ Zinc/ 2,011 mls @ 34 mls/hr 06/27/24 19:00 Copper/Manganese/Selenium 1 ml IV / Amino Ac/Electrol/Dextrose/ 1900 [facility] Calcium Protocol Fat Emulsion Intravenous 250 mls @ 21 mls/hr 06/28/24 19:00 Intralipid 20% IV [id number] [facility] Ibuprofen 600 mg 06/23/24 14:00 06/26/24 05:27 Ibuprofen 600 Mg Tablet PO 600 mg Q6HR MY Administration Lamotrigine 400 mg 06/19/24 21:00 06/25/24 21:22 Lamotrigine 100 Mg Tablet PO 400 mg HS MY Administration Montelukast Sodium 10 mg 06/18/24 21:00 06/25/24 21:25 Montelukast 10 Mg Tablet PO 10 mg QPM MY Administration Ondansetron HCl 4 mg 06/17/24 21:51 06/25/24 12:26 Ondansetron 4 Mg/2 Ml Vial IVP 4 mg Q6HR PRN Administration Nausea / Vomiting Oxycodone HCl 5 mg 06/18/24 11:25 06/25/24 23:36 Oxycodone 5 Mg Tablet PO 5 mg Q4HR PRN Administration Moderate Pain (Level 4-6) Buprenorphine 20 Mcg 1 each 06/18/24 15:00 06/25/24 22:13 /Hour Patch Weekly TOP 1 each Q7D MY Administration Tpn From Home 1 each 06/25/24 21:00 06/25/24 21:19 IV 06/26/24 21:01 1 each HS MY Administration Polyethylene Glycol 17 gm 06/19/24 09:00 06/25/24 09:15 Polyethylene Glycol 3350 17 Gm Packet PO Not Given DAILY MY Sodium Chloride 10 ml 06/17/24 21:51 06/22/24 21:33 Sodium Chloride Flush 0.9% 10 Ml Syringe IVP 10 ml PRN PRN Administration NEEDED PER PROVIDER ORDERS Sodium Chloride 10 ml 06/18/24 01:00 06/25/24 23:43 Sodium Chloride Flush 0.9% 10 Ml Syringe IVP Not Given 0100,0900,1700 [facility] Objective Vital Signs/Intake & Output Reviewed Vital Signs: Yes Vital Signs: Vital Signs x48h Temp Pulse Resp BP Pulse Ox 06/25/24 23:30 36.5 C 76 18 98/68 97 Intake & Output: Intake & Output 06/24/24 06/25/24 06/26/24 06/27/24 05:59 05:59 05:59 05:59 Intake Total 2280 / 2280 1936 / 1936 1876 / 1876 Output Total 3050 / 3050 2350 / 2350 2350 / 2350 Balance -770 / -770 -414 / -414 -474 / -474 Weight (kg) 67 kg Objective General Appearance: positive No acute distress and Alert Eyes Bilateral: positive Normal inspection and PERRL ENT: positive No signs of dehydration Neck: positive Nml inspection Respiratory: positive Chest non-tender, No respiratory distress and Breath sounds nml Cardiovascular: positive Regular rate & rhythm and No murmur Abdomen: positive Non-tender, Nml bowel sounds and No distention Skin: positive Color nml Extremities: positive Other (right shoulder suture line examined today. There is some drainage, milky in character expressed from wound. no foul odor. packing left in place, dressing replaced. ) Neurologic/Psychiatric: positive Oriented x3, CN's nml (2-12), Motor nml, Sensation nml and Mood/affect nml Lab Results 06/26/24 05:55 06/26/24 05:55 Other Labs: Lab Results x24hrs 06/26/24 Range/Units 05:55 WBC 6.9 (4.8-10.8) x10^3/uL RBC 3.32 L (4.20-5.40) 10^6/uL Hgb 8.6 L (12.0-16.0) g/dL Hct 28.1 L (37.0-47.0) % MCV 84.6 (81.0-99.0) fL MCH 25.9 L (27.0-31.0) pg MCHC 30.6 L (32.0-36.0) g/dL RDW 16.0 H (12.0-15.0) % Plt Count 380 (130-450) 10^3/uL MPV 9.7 (7.9-10.8) fL Neut # (Auto) 5.0 (1.5-6.6) 10^3/uL Lymph # (Auto) 1.2 L (1.5-3.5) 10^3/uL [place] # (Auto) 0.4 (0.0-1.0) 10^3/uL Eos # (Auto) 0.2 (0.0-0.7) 10^3/uL Baso # (Auto) 0.1 (0.0-0.1) 10^3/uL Absolute Nucleated RBC 0.00 x10^3/uL Nucleated RBC % 0.0 /100WBC Sodium 138 (135-145) mmol/L Potassium 4.8 H (3.5-4.5) mmol/L Chloride 102 (101-111) mmol/L Carbon Dioxide 29 (21-32) mmol/L Anion Gap 7.0 (6-13) BUN 16 (6-20) mg/dL Creatinine 0.7 (0.6-1.3) mg/dL Estimated GFR (MDRD) 88 L (>89) Glucose 114 H (74-104) mg/dL Calcium 8.7 (8.5-10.3) mg/dL C-Reactive Protein 8.9 H (<0.5) mg/dL ABX Reporting Has patient been on IV antibiotics over the past 48 hours?: Yes Sepsis Event Note (H) Evaluation Current Stage of Sepsis: Sepsis Possible source of Sepsis: positive Bone/Joint, Skin/soft tissue and Wound Sepsis Criteria Sepsis Criteria: Suspected or Documented Assessment/Plan Problem List (1) Abscess of right shoulder: Impression: Underwent I&D on 06/17/2024 with wound packing. REdo on 06/23. 06/26/24: PAcking left in place. wound with scant milky draiange expressed, serous drainage on top dressing. I will look at this with Dr Wayne tomorrow, no indication at this time that infection is not controlled. Barriers to discharge at this time are confidence by her medical team that the infection is under control and will not require further surgical intervention. Further barrier is having an outpatient wound care plan. We are waiting to hear from a home health agency that can possibly take on the need for wound care. This patient does not drive. 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 06/25/24: Dressing and packing changed today. There is serosanguineous drainage on the top dressing. There is a small amount of pus on the packing. The joint cavity was packed tightly with 1 inch plain gauze. I placed Xeroform on top of this and a bulky 4 x 4 dressing secured with tape. There is no foul smell. There is no cellulitis. I am able to express a small amount of thin drainage from the wound. Discussed very briefly with Dr Wayne who will change the packing on 06/27. 06/24/24. Seen by humphrey Penn. no concerns. Dressing change will be done by hospitalist 06/25. I have discussed her care with Dr Wayne today 06/23/24: There is purulent drainage coming from the suture line. She is going back to the operating room this afternoon for reopening of the joint debridement and washout. I discussed the patient with Dr. Wayne today. I will change the dressing on Monday 06/25 and then orthopedics will follow-up with the patient. 06/21/2024: Wound packing changed yesterday by Humphrey ZEE. Abscess cultures pending. Blood cultures showing MRSA (2) Sepsis: Impression: Reported to be febrile up to 103 F at time of admit. no record of this in the flowsheets. Was placed on broad-spectrum coverage with cefepime, daptomycin, clindamycin Starting 06/18/2024. Blood cultures have since shown MRSA. De-escalated to Dapto. Central line has been removed. She will need a negative blood culture before we can replace it. Blood cultures with no growth x 3 days. PICC was replaced on 06/25. She had previously been dependent on right sided subclavian central line. She will need to complete 2 weeks of daptomycin for positive blood cultures. She has a history of elevated CK in the past with daptomycin. I rechecked her CK it is 14 on 06/22 .. Needs weekly CKs while on daptomycin. Her CRP bumped slightly up on 06/25, but back down. WBC remains normal. Laboratory Tests 06/23/24 06/24/24 06/25/24 05:46 05:50 05:26 C-Reactive Protein 10.1 H 9.3 H 13.3 H 06/26/24 05:55 C-Reactive Protein 8.9 H Qualifiers: Sepsis acute organ dysfunction status: without acute organ dysfunction Sepsis type: methicillin resistant Staphylococcus aureus Qualified Code(s): A 41.02 - Sepsis due to Methicillin resistant Staphylococcus aureus (3) Shoulder pain: Impression: Patient has chronic shoulder pain due to torn rotator cuff. She is also experiencing pain from the abscess. Patient has scheduled and PRN pain management medication orders in place. Qualifiers: Chronicity: unspecified Laterality: right Qualified Code(s): M25.511 - Pain in right shoulder (4) Hypokalemia: Impression: resolved. She is now hyperkalemic. I will monitor this. I have stopped the po Kcl. I expect that her electrolyte levels will change as she is able to transition back on TPN today. appropriate labs are ordered. (5) On total parenteral nutrition (TPN): Impression: [facility] due to hx of gastric surgery. 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 This was done when she was in her 30s. She has been on TPN for this long. It is unclear to me why she is not on a different method of nutrition but this is her routine and has been for in excess of 20 years. She is managed by a senior windows engineer in the outpatient environment. Her CVC had to be removed due to being a possible source of her MRSA infection. Patient is able to eat but it is suspected her total intake and overall nutrition will be limited. She has a left sided PICC in place. She is concerned about this as she is not able to hook this up to medications herself (takes 2 hands to do this). Her TPN runs for 12 hours. her son can hook this up for her when he gets home from work in the evenings and can unhook before he leaves in the AM. I am unsure what the regimen will need to be for Daptomycin. She has small vessels, and multiple lumen PICC was not an option, Availability of TPN/PPN products is of great concern at this point. This is due to a national shortage. We have transitioned back to the patient's supply of TPN. We can use this until midnight when it expires, and therefore will run this from noon-MN today. More of the patient's home supply is not available, and therefore we will use our own supply and formulations that are made here at the hospital. I have spent 40 minutes in the care of this patient today. This includes time [id number], review and ordering of diagnostic imaging and laboratory studies. Monitoring the patient's signs symptoms, evaluation of medication effectiveness and patient's response to treatment.
[2024-06-26] MEDS: [UNRECOGNIZED DRUG - NUTRITION] IV SCH (12:41)
[2024-06-27 05:42] LABS: BASOPHILS # (AUTO) 0.1 10^3/uL (0.0-0.1); BASOPHILS % (AUTO) 1.2 %; EOSINOPHILS # (AUTO) 0.3 10^3/uL (0.0-0.7); EOSINOPHILS % (AUTO) 3.6 %; HCT - HEMATOCRIT 32.1 % (37.0-47.0); HGB - HEMOGLOBIN 9.8 g/dL (12.0-16.0); LYMPHOCYTES % (AUTO) 22.8 %; MEAN CORPUSCULAR HEMOGLOBIN 25.7 pg (27.0-31.0); MEAN CORPUSCULAR HGB CONC 30.5 g/dL (32.0-36.0); MONOCYTES # (AUTO) 0.5 10^3/uL (0.0-1.0); NEUTROPHILS # (AUTO) 5.5 10^3/uL (1.5-6.6); NEUTROPHILS % (AUTO) 64.6 %; PLT - PLATELET COUNT 464 10^3/uL (130-450); RED BLOOD COUNT 3.82 10^6/uL (4.20-5.40); RED CELL DISTRIBUTION WIDTH 15.9 % (12.0-15.0); WHITE BLOOD COUNT 8.6 x10^3/uL (4.8-10.8)
[2024-06-27 05:59] LABS: CALCIUM 8.8 mg/dL (8.5-10.3); CREATININE 0.7 mg/dL (0.6-1.3); POTASSIUM 5.2 mmol/L (3.5-4.5)
--- NOTE | 2024-06-27 08:08 | PROVIDER PROGRESS NOTE ---
Subjective Prog Note Date Prog Note Date: 06/27/24 Prog Note Time: 10:14 Subjective Pt reports feeling: No change Subjective: She wants her stump (RLE JOSE E) revised. Has problems with development of pressure sores from the tibia anytime she bears weight on it. Relates to me that she usually does 3days on/3 days off with lasix at home and maintains a normal fluid balance. She says that she lost tract here. Her home TPN was resumed yesterday and her K is high today. There are 40mEq Kcl in her TPN Current Medications Current Medications Current Medications: Current Medications Generic Name Dose Route Start Last Admin Trade Name Freq PRN Reason Stop Dose Admin Acetaminophen 1,000 mg 06/18/24 06:00 06/27/24 05:58 Acetaminophen 500 Mg Tablet PO 1,000 mg TID MY Administration Baclofen 20 mg 06/17/24 22:00 06/27/24 05:59 Baclofen 10 Mg Tablet PO 20 mg TID MY Administration Buspirone HCl 5 mg 06/19/24 09:00 06/26/24 09:15 Buspirone 5 Mg Tablet PO 5 mg DAILY MY Administration Cetirizine HCl 10 mg 06/18/24 21:00 06/26/24 21:19 Cetirizine 10 Mg Tablet PO 10 mg HS YM Administration Cyclobenzaprine HCl 5 mg 06/18/24 14:01 06/26/24 02:19 Cyclobenzaprine 10 Mg Tablet PO 5 mg TID PRN Administration muscle spasms Daptomycin 500 mg 06/18/24 14:45 06/26/24 09:15 Daptomycin 500 Mg Vial IVP 500 mg DAILY MY Administration Docusate Sodium 100 mg 06/18/24 09:00 06/26/24 21:20 Docusate Sodium 100 Mg Capsule PO 100 mg BID MY Administration Duloxetine HCl 120 mg 06/19/24 09:00 06/26/24 09:15 Duloxetine 60 Mg Capsule PO 120 mg DAILY MY Administration Enoxaparin Sodium 40 mg 06/18/24 13:00 06/26/24 09:16 Enoxaparin 40 Mg/0.4 Ml Syringe SUBQ Not Given DAILY MY Furosemide 40 mg 06/19/24 09:00 06/26/24 09:14 Furosemide 40 Mg Tablet PO Not Given DAILY MY Gabapentin 300 mg 06/18/24 14:00 06/27/24 05:59 Gabapentin 300 Mg Capsule PO 300 mg TID MY Administration Gabapentin 300 mg 06/25/24 13:03 06/27/24 06:02 Gabapentin 300 Mg Capsule PO 300 mg TID PRN Administration PAIN 5-7 Heparin Sodium (Beef Lung) 50 unit 06/27/24 09:00 Heparin Flush 50 Units/5 Ml Syringe IVP BID MY Hydromorphone HCl 0.5 mg 06/18/24 11:25 06/22/24 23:57 Hydromorphone 0.5 Mg/0.5 Ml Syringe IVP 0.5 mg Q2H PRN Administration Severe Pain (Level 7-10) Hydroxyzine Pamoate 100 mg 06/23/24 14:00 06/27/24 05:58 Hydroxyzine Pamoate 25 Mg Capsule PO 100 mg TID MY Administration Multivitamins 10 ml/ Zinc/ 2,011 mls @ 34 mls/hr 06/27/24 19:00 Copper/Manganese/Selenium 1 ml IV / Amino Ac/Electrol/Dextrose/ [facility] Calcium Protocol Fat Emulsion Intravenous 250 mls @ 21 mls/hr 06/28/24 19:00 Intralipid 20% IV [email or web address] [email or web address] Ibuprofen 600 mg 06/23/24 14:00 06/27/24 05:58 Ibuprofen 600 Mg Tablet PO 600 mg Q6HR MY Administration Lamotrigine 400 mg 06/19/24 21:00 06/26/24 21:20 Lamotrigine 100 Mg Tablet PO 400 mg HS MY Administration Montelukast Sodium 10 mg 06/18/24 21:00 06/26/24 21:19 Montelukast 10 Mg Tablet PO 10 mg QPM MY Administration Ondansetron HCl 4 mg 06/17/24 21:51 06/25/24 12:26 Ondansetron 4 Mg/2 Ml Vial IVP 4 mg Q6HR PRN Administration Nausea / Vomiting Oxycodone HCl 5 mg 06/18/24 11:25 06/26/24 23:53 Oxycodone 5 Mg Tablet PO 5 mg Q4HR PRN Administration Moderate Pain (Level 4-6) Buprenorphine 20 Mcg 1 each 06/18/24 15:00 06/25/24 22:13 /Hour Patch Weekly TOP 1 each Q7D MY Administration Polyethylene Glycol 17 gm 06/19/24 09:00 06/26/24 09:16 Polyethylene Glycol 3350 17 Gm Packet PO Not Given DAILY MY Sodium Chloride 10 ml 06/17/24 21:51 06/22/24 21:33 Sodium Chloride Flush 0.9% 10 Ml Syringe IVP 10 ml PRN PRN Administration NEEDED PER PROVIDER ORDERS Sodium Chloride 10 ml 06/18/24 01:00 06/26/24 23:54 Sodium Chloride Flush 0.9% 10 Ml Syringe IVP 10 ml 0100,0900,1700 MY Administration Sodium Zirconium Cyclosilicate 10 gm 06/27/24 09:00 Sodium Zirconium Cyclosilicate 5 Gm Packet PO ONCE MY Objective Vital Signs/Intake & Output Reviewed Vital Signs: Yes Vital Signs: Vital Signs x48h Temp Pulse Resp BP Pulse Ox 06/25/24 23:30 36.5 C 76 18 98/68 97 Intake & Output: Intake & Output 06/25/24 06/26/24 06/27/24 06/28/24 05:59 05:59 05:59 05:59 Intake Total 1936 / 1936 1876 / 1876 1050 / 1050 400 / 400 Output Total 2350 / 2350 2350 / 2350 1450 / 1450 650 / 650 Balance -414 / -414 -474 / -474 -400 / -400 -250 / -250 Objective General Appearance: positive No acute distress and Alert Eyes Bilateral: positive Normal inspection and PERRL ENT: positive No signs of dehydration Neck: positive Nml inspection Respiratory: positive Chest non-tender, No respiratory distress and Breath sounds nml Cardiovascular: positive Regular rate & rhythm and No murmur Abdomen: positive Non-tender, Nml bowel sounds and No distention Skin: positive Color nml Neurologic/Psychiatric: positive Oriented x3, CN's nml (2-12), Motor nml, Sensation nml and Mood/affect nml Lab Results 06/27/24 04:52 06/27/24 14:00 Other Labs: Lab Results x24hrs 06/27/24 Range/Units 04:52 WBC 8.6 (4.8-10.8) x10^3/uL RBC 3.82 L (4.20-5.40) 10^6/uL Hgb 9.8 L (12.0-16.0) g/dL Hct 32.1 L (37.0-47.0) % MCV 84.0 (81.0-99.0) fL MCH 25.7 L (27.0-31.0) pg MCHC 30.5 L (32.0-36.0) g/dL RDW 15.9 H (12.0-15.0) % Plt Count 464 H (130-450) 10^3/uL MPV 10.0 (7.9-10.8) fL Neut # (Auto) 5.5 (1.5-6.6) 10^3/uL Lymph # (Auto) 2.0 (1.5-3.5) 10^3/uL Hardeman # (Auto) 0.5 (0.0-1.0) 10^3/uL Eos # (Auto) 0.3 (0.0-0.7) 10^3/uL Baso # (Auto) 0.1 (0.0-0.1) 10^3/uL Absolute Nucleated RBC 0.00 x10^3/uL Nucleated RBC % 0.0 /100WBC Sodium 132 L (135-145) mmol/L Potassium 5.2 H (3.5-4.5) mmol/L Chloride 97 L (101-111) mmol/L Carbon Dioxide 30 (21-32) mmol/L Anion Gap 5.0 L (6-13) BUN 19 (6-20) mg/dL Creatinine 0.7 (0.6-1.3) mg/dL Estimated GFR (MDRD) 88 L (>89) Glucose 93 (74-104) mg/dL Calcium 8.8 (8.5-10.3) mg/dL C-Reactive Protein 6.0 H (<0.5) mg/dL ABX Reporting Has patient been on IV antibiotics over the past 48 hours?: Yes Sepsis Event Note (H) Evaluation Current Stage of Sepsis: Sepsis Possible source of Sepsis: positive Bone/Joint, Skin/soft tissue and Wound Sepsis Criteria Sepsis Criteria: Suspected or Documented Assessment/Plan Problem List (1) Abscess of right shoulder: Impression: Underwent I&D on 06/17/2024 with wound packing. REdo on 06/23. 06/27:Seen today with Dr. Wayne. There is still purulent material along with serous drainage coming out of the wound. The wound bed was irrigated copiously at the bedside with approximately 100 cc of normal saline. Patient tolerated this well. Wound bed was repacked with 1 inch strip gauze. Orthopedics will irrigate and repacked the wound again tomorrow. The wound is not better but it is also not much worse.. Decision was made not to return to the operating room this afternoon. We will continue to monitor. 06/26/24: PAcking left in place. wound with scant milky draiange expressed, serous drainage on top dressing. I will look at this with Dr Wayne tomorrow, no indication at this time that infection is not controlled. Barriers to discharge at this time are confidence by her medical team that the infection is under control and will not require further surgical intervention. Further barrier is having an outpatient wound care plan. We are waiting to hear from a home health agency that can possibly take on the need for wound care. This patient does not drive. 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 06/25/24: Dressing and packing changed today. There is serosanguineous drainage on the top dressing. There is a small amount of pus on the packing. The joint cavity was packed tightly with 1 inch plain gauze. I placed Xeroform on top of this and a bulky 4 x 4 dressing secured with tape. There is no foul smell. There is no cellulitis. I am able to express a small amount of thin drainage from the wound. Discussed very briefly with Dr Wayne who will change the packing on 06/27. 06/24/24. Seen by humphrey Penn. no concerns. Dressing change will be done by hospitalist 06/25. I have discussed her care with Dr Wayne today 06/23/24: There is purulent drainage coming from the suture line. She is going back to the operating room this afternoon for reopening of the joint debridement and washout. I discussed the patient with Dr. Wayne today. I will change the dressing on Monday 06/25 and then orthopedics will follow-up with the patient. 06/21/2024: Wound packing changed yesterday by Humphrey ZEE. Abscess cultures pending. Blood cultures showing MRSA (2) Sepsis: Impression: Reported to be febrile up to 103 F at time of admit. no record of this in the flowsheets. Was placed on broad-spectrum coverage with cefepime, daptomycin, clindamycin Starting 06/18/2024. Blood cultures have since shown MRSA. De-escalated to Dapto. Central line has been removed. She will need a negative blood culture before we can replace it. Blood cultures with no growth x 3 days. PICC was replaced on 06/25. She had previously been dependent on right sided subclavian central line. She will need to complete 2 weeks of daptomycin for positive blood cultures. She has a history of elevated CK in the past with daptomycin. I rechecked her CK it is 14 on 06/22 .. Needs weekly CKs while on daptomycin. recheck CK on 06/29. Her CRP bumped slightly up on 06/25, but back down. WBC remains normal. Laboratory Tests 06/23/24 06/24/24 06/25/24 05:46 05:50 05:26 C-Reactive Protein 10.1 H 9.3 H 13.3 H 06/26/24 05:55 C-Reactive Protein 8.9 H Qualifiers: Sepsis acute organ dysfunction status: without acute organ dysfunction Sepsis type: methicillin resistant Staphylococcus aureus Qualified Code(s): A 41.02 - Sepsis due to Methicillin resistant Staphylococcus aureus (3) Hyperkalemia: Impression: She is now hyperkalemic. I will monitor this. I have stopped the po Kcl. Her TPN has 40 mill equivalents of KCl in it daily. I have discussed her hospital TPN formulation with the pharmacist today. We will try to minimize the potassium. In the outpatient environment patient states that she takes her Lasix on for 3 days off for 3 days and that she has not had problems with her potassium. I think that being off of her home Lasix and taking her home TPN his tip the balance of her potassium in the wrong direction. I have given her Lokelma today and will recheck her potassium this afternoon. Potassium recheck 4.2 this afternoon. I have given her 20 mill equivalents of Lasix. We will run TPN at half the normal rate tonight. That will give us 24 mill equivalents of potassium in which balanced with the Lokelma and the Lasix administration this afternoon should keep the potassium within normal range. We will recheck potassium and sodium again in the morning with a.m. labs. Balance of lasix administration and TPN formulation, WRT potassium need to be carefully monitored in the outpatient environment. (4) Shoulder pain: Impression: Patient has chronic shoulder pain due to torn rotator cuff. She is also experiencing pain from the abscess. Patient has scheduled and PRN pain management medication orders in place. Qualifiers: Chronicity: unspecified Laterality: right Qualified Code(s): M25.511 - Pain in right shoulder (5) On total parenteral nutrition (TPN): Impression: Patient was on shelter TPN via CVC due to hx of gastric surgery. 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 This was done when she was in her 30s. She has been on TPN for this long. It is unclear to me why she is not on a different method of nutrition but this is her routine and has been for in excess of 20 years. She is managed by a second hand paper machine in the outpatient environment. I get the impression that this is overall overseen by her PCP. I do not know why some sort of enteral (small bowel) feeding has not been an option. I do not know the extent of her malabsorption syndrome. Her CVC had to be removed due to being a possible source of her MRSA infection. Patient is able to eat and was placed on PPN for a period of days. She has a left sided PICC in place now. She is concerned about this as she is not able to hook this up to medications herself (takes 2 hands to do this). Probably can place an extension to PICC and she will be able to self administer. Her TPN runs for 12 hours. Alternately, her son can hook this up for her when he gets home from work in the evenings and can unhook before he leaves in the AM. . She has small vessels, and multiple lumen PICC was not an option, Daptomycin- 2 weeks will be completed on 07/01. She may need longer than this due to her septic joint. We will need to consult with ortho regarding this. Availability of TPN/PPN products is of great concern at this point. This is due to a national shortage. We have transitioned back to the patient's supply of TPN. We have used as much of home supply of TPN as possible. More of the patient's home supply is not available, and therefore we will use our own supply and formulations that are made here at the hospital. I will carefully monitor her potassium level. unclear what we will do when and if hospital supply is exhausted. Balance of lasix administration and TPN formulation, WRT potassium need to be carefully monitored in the outpatient environment. I have spent 52 minutes in the care of this patient today. This includes time [id number], review and ordering of diagnostic imaging and laboratory studies. Monitoring the patient's signs symptoms, evaluation of medication effectiveness and patient's response to treatment.
[2024-06-27] MEDS: SODIUM ZIRCONIUM CYCLOSILICATE 5 GM PACKET PO ONE (08:48)
[2024-06-27] MEDS ORDERED: ZINC OXIDE 20% OINT 30 GM TUBE TOP PRN (10:27)
[2024-06-27] MEDS: FUROSEMIDE 20 MG/2 ML VIAL IVP ONE (14:16)
[2024-06-27 14:30] LABS: CREATININE 0.8 mg/dL (0.6-1.3); POTASSIUM 4.2 mmol/L (3.5-4.5)
--- NOTE | 2024-06-27 15:29 | POST OP PROGRESS NOTE ---
Subjective General Admit Date: 06/17/24 Procedure Date: 06/25/24 Post Op Days: 2 Procedure Performed: Incision and debridement right shoulder abscess Other Other Information/Narrative: Admit Date: 06/17/24 Procedure Date: 06/17/24 and 06/23/24 Procedure Performed: Incision and debridement right shoulder abscess x2 53 year old female s/p irrigation and debridement of right shoulder for right shoulder abscess on 06/17/24 and 06/23/24. Cultures were positive for MRSA. She has been on Daptomycin. She reports tolerable right shoulder pain. She denies chest pain, shortness of breath Wound cultures from the operating room are positive for MRSA. Prior to development of abscess she was completing physical therapy for right rotator cuff tear at [facility]. She had limited motion and pain in the shoulder prior to abscess development. PE: Pleasant malnourished female in NAD. R shoulder: Dressing in place. Dressing removed. Purulence expressed from wound when packing removed. I was able to express the remaining purulence and probed the wound with a CTA. There were no remaining pockets of purulence. No surrounding erythema or warmth SILT axillary/r/u/m Fires epl/fpl/io Rad pulse 2+ and brisk cap refill. No joint irritability with passive movement. ABX Reporting Has patient been on IV antibiotics over the past 48 hours?: Yes Ortho Surgical Progress Note Problem List Right shoulder abscess with MRSA septicemia in a malnourished patient - I discussed options both surgical and nonsurgical with the patient and with the internal medicine PA-C. At this point, I think it is reasonable to try to do a bedside irrigation to see if there is any additional purulence and then repack the wound. We will continue to do daily packing changes. The remainder of the purulence was expressed and I irrigated with 100 cc of normal saline with an angiocath and there was no remaining purulence. The patient tolerated the procedure. I discussed her with my partner, Dr. Christiansen who will see the patient tomorrow. - Dressing change daily. - Continue IV antibiotics, - Trend CRP daily - continues to downtrend - Sling to be used as needed for comfort - DVT prophylaxis with lovenox and SCDs, ambulate and up to chair as able - Follow up with orthopedic clinic 14 days after surgery for suture removal - Pain management per medicine team - NPO after midnight on 06/29/24 in case she need a formal I & D. Ortho Surgical Progress Note Problem List Discharge Instructions: * Always ambulate with front wheeled walker until instructed otherwise by your surgeon. Please refer to the booklet provided at [facility] for instructions for ambulation. You can weight-bear as tolerated on the affected extremity. * Avoid crossing your legs when sitting in low chairs to reduce chance of hip dislocation * Follow the pre-operatively agreed upon pain regimen described in the [facility] booklet. As a reminder, the discussed medications include using acetaminophen, ibuprofen, oxycodone and tramadol. * Ice area to decrease pain and swelling * Take Aspirin 81 mg twice daily for 6 weeks for blood clot prevention * Leave dressing in place until follow up in office. You can shower with the dressing in place if it is kept dry and neat * Please call the office if you experience fever, chills, chest pain, shortness of breath, nausea, vomiting, drainage or bleeding * You are scheduled for follow-up with the orthopedic clinic in 5 days * Appreciate input from hospitalist team for management of chronic medical conditions
[2024-06-27] MEDS: TPN (CLINIMIX E 5/15) 2,000 ML with MULTIVITAMIN 10 ML, TRACE ELEMENTS 1 ML IV SCH (19:17)
[2024-06-28 05:51] LABS: BASOPHILS # (AUTO) 0.1 10^3/uL (0.0-0.1); BASOPHILS % (AUTO) 0.9 %; EOSINOPHILS # (AUTO) 0.2 10^3/uL (0.0-0.7); EOSINOPHILS % (AUTO) 2.9 %; HCT - HEMATOCRIT 32.5 % (37.0-47.0); LYMPHOCYTES # (AUTO) 1.4 10^3/uL (1.5-3.5); LYMPHOCYTES % (AUTO) 24.3 %; MEAN CORPUSCULAR HGB CONC 30.8 g/dL (32.0-36.0); MEAN CORPUSCULAR VOLUME 84.6 fL (81.0-99.0); MEAN PLATELET VOLUME 9.7 fL (7.9-10.8); MONOCYTES # (AUTO) 0.4 10^3/uL (0.0-1.0); NEUTROPHILS # (AUTO) 3.7 10^3/uL (1.5-6.6); NEUTROPHILS % (AUTO) 63.7 %; PLT - PLATELET COUNT 455 10^3/uL (130-450); RED BLOOD COUNT 3.84 10^6/uL (4.20-5.40); RED CELL DISTRIBUTION WIDTH 15.9 % (12.0-15.0); WHITE BLOOD COUNT 5.8 x10^3/uL (4.8-10.8)
[2024-06-28 05:55] LABS: INR 1.2 (0.8-1.2); PT - PROTHROMBIN TIME 13.3 secs (9.9-12.6)
[2024-06-28 06:02] LABS: MAGNESIUM 2.2 mg/dL (1.7-2.3)
[2024-06-28 06:08] LABS: ALBUMIN/GLOBULIN RATIO 0.8 (1.0-2.2); BILIRUBIN,TOTAL 0.3 mg/dL (0.2-1.0); CALCIUM 8.9 mg/dL (8.5-10.3); CREATININE 0.8 mg/dL (0.6-1.3); PHOSPHORUS 5.3 mg/dL (2.5-5.0); POTASSIUM 3.7 mmol/L (3.5-4.5); TOTAL PROTEIN 6.8 g/dL (6.4-8.9)
--- NOTE | 2024-06-28 08:37 | PROVIDER PROGRESS NOTE ---
Subjective Prog Note Date Prog Note Date: 06/28/24 Prog Note Time: 10:00 Subjective Pt reports feeling: Improved Subjective: No shoulder pain. She is doing well, but concerned about her needs for discharge and her needs while she is here. no fevers overnight, she was able to resume TPN with hospital supplied TPN overnight. Current Medications Current Medications Current Medications: Current Medications Generic Name Dose Route Start Last Admin Trade Name Freq PRN Reason Stop Dose Admin Acetaminophen 1,000 mg 06/18/24 06:00 06/28/24 06:02 Acetaminophen 500 Mg Tablet PO 1,000 mg TID MY Administration Baclofen 20 mg 06/17/24 22:00 06/28/24 06:02 Baclofen 10 Mg Tablet PO 20 mg TID MY Administration Buspirone HCl 5 mg 06/19/24 09:00 06/28/24 08:21 Buspirone 5 Mg Tablet PO 5 mg DAILY MY Administration Cetirizine HCl 10 mg 06/18/24 21:00 06/27/24 21:06 Cetirizine 10 Mg Tablet PO 10 mg HS MY Administration Cyclobenzaprine HCl 5 mg 06/18/24 14:01 06/26/24 02:19 Cyclobenzaprine 10 Mg Tablet PO 5 mg TID PRN Administration muscle spasms Daptomycin 500 mg 06/18/24 14:45 06/28/24 08:21 Daptomycin 500 Mg Vial IVP 500 mg DAILY MY Administration Docusate Sodium 100 mg 06/18/24 09:00 06/28/24 08:22 Docusate Sodium 100 Mg Capsule PO Not Given BID MY Duloxetine HCl 120 mg 06/19/24 09:00 06/28/24 08:21 Duloxetine 60 Mg Capsule PO 120 mg DAILY MY Administration Enoxaparin Sodium 40 mg 06/18/24 13:00 06/28/24 08:21 Enoxaparin 40 Mg/0.4 Ml Syringe SUBQ 40 mg DAILY MY Administration Furosemide 40 mg 06/19/24 09:00 06/28/24 08:21 Furosemide 40 Mg Tablet PO 40 mg DAILY MY Administration Gabapentin 300 mg 06/18/24 14:00 06/28/24 06:02 Gabapentin 300 Mg Capsule PO 300 mg TID MY Administration Gabapentin 300 mg 06/25/24 13:03 06/28/24 06:02 Gabapentin 300 Mg Capsule PO 300 mg TID PRN Administration PAIN 5-7 Heparin Sodium (Beef Lung) 50 unit 06/27/24 09:00 06/28/24 08:22 Heparin Flush 50 Units/5 Ml Syringe IVP 50 unit BID MY Administration Hydromorphone HCl 0.5 mg 06/18/24 11:25 06/22/24 23:57 Hydromorphone 0.5 Mg/0.5 Ml Syringe IVP 0.5 mg Q2H PRN Administration Severe Pain (Level 7-10) Hydroxyzine Pamoate 100 mg 06/23/24 14:00 06/28/24 06:02 Hydroxyzine Pamoate 25 Mg Capsule PO 100 mg TID [facility] Administration Multivitamins 10 ml/ Zinc/ 2,011 mls @ 34 mls/hr 06/27/24 19:00 06/27/24 19:17 Copper/Manganese/Selenium 1 ml IV 34 mls/hr / Amino Ac/Electrol/Dextrose/ 1900 [facility] Administration Calcium Protocol Fat Emulsion Intravenous 250 mls @ 21 mls/hr 06/28/24 19:00 Intralipid 20% IV [id number] [facility] Ibuprofen 600 mg 06/23/24 14:00 06/28/24 06:02 Ibuprofen 600 Mg Tablet PO 600 mg Q6HR [facility] Administration Lamotrigine 400 mg 06/19/24 21:00 06/27/24 21:07 Lamotrigine 100 Mg Tablet PO 400 mg HS [facility] Administration Montelukast Sodium 10 mg 06/18/24 21:00 06/27/24 21:07 Montelukast 10 Mg Tablet PO 10 mg QPM [facility] Administration Multi-Ingredient Ointment 1 applic 06/27/24 10:27 Zinc Oxide 20% Oint 30 Gm Tube TOP PRN PRN Skin Care Ondansetron HCl 4 mg 06/17/24 21:51 06/25/24 12:26 Ondansetron 4 Mg/2 Ml Vial IVP 4 mg Q6HR PRN Administration Nausea / Vomiting Oxycodone HCl 5 mg 06/18/24 11:25 06/26/24 23:53 Oxycodone 5 Mg Tablet PO 5 mg Q4HR PRN Administration Moderate Pain (Level 4-6) Buprenorphine 20 Mcg 1 each 06/18/24 15:00 06/25/24 22:13 /Hour Patch Weekly TOP 1 each Q7D MY Administration Polyethylene Glycol 17 gm 06/19/24 09:00 06/28/24 08:22 Polyethylene Glycol 3350 17 Gm Packet PO Not Given DAILY MY Sodium Chloride 10 ml 06/17/24 21:51 06/22/24 21:33 Sodium Chloride Flush 0.9% 10 Ml Syringe IVP 10 ml PRN PRN Administration NEEDED PER PROVIDER ORDERS Sodium Chloride 10 ml 06/18/24 01:00 06/28/24 08:22 Sodium Chloride Flush 0.9% 10 Ml Syringe IVP 10 ml 0100,0900,1700 MY Administration Objective Vital Signs/Intake & Output Reviewed Vital Signs: Yes Vital Signs: Vital Signs x48h Temp Pulse Resp BP Pulse Ox 06/25/24 23:30 36.5 C 76 18 98/68 97 Intake & Output: Intake & Output 06/26/24 06/27/24 06/28/24 06/29/24 05:59 05:59 05:59 05:59 Intake Total 1876 / 1876 1050 / 1050 1345 / 1345 450 / 450 Output Total 2350 / 2350 1450 / 1450 2100 / 2100 Balance -474 / -474 -400 / -400 -755 / -755 450 / 450 Weight (kg) 60 kg Objective General Appearance: positive No acute distress and Alert Eyes Bilateral: positive Normal inspection and PERRL ENT: positive No signs of dehydration Neck: positive Nml inspection Respiratory: positive Chest non-tender, No respiratory distress and Breath sounds nml Cardiovascular: positive Regular rate & rhythm and No murmur Abdomen: positive Non-tender, Nml bowel sounds and No distention Skin: positive Color nml Extremities: positive Non-tender and Other (R shoulder with dressing in place. I will not change dressing today- ortho to do so. there is no erythema or increased edema at the joint. ) Neurologic/Psychiatric: positive Oriented x3, CN's nml (2-12), Motor nml, Sensation nml and Mood/affect nml Lab Results 06/28/24 05:40 06/28/24 05:40 Other Labs: Lab Results x24hrs 06/28/24 06/27/24 Range/Units 05:40 14:00 WBC 5.8 (4.8-10.8) x10^3/uL RBC 3.84 L (4.20-5.40) 10^6/uL Hgb 10.0 L (12.0-16.0) g/dL Hct 32.5 L (37.0-47.0) % MCV 84.6 (81.0-99.0) fL MCH 26.0 L (27.0-31.0) pg MCHC 30.8 L (32.0-36.0) g/dL RDW 15.9 H (12.0-15.0) % Plt Count 455 H (130-450) 10^3/uL MPV 9.7 (7.9-10.8) fL Neut # (Auto) 3.7 (1.5-6.6) 10^3/uL Lymph # (Auto) 1.4 L (1.5-3.5) 10^3/uL [place] # (Auto) 0.4 (0.0-1.0) 10^3/uL Eos # (Auto) 0.2 (0.0-0.7) 10^3/uL Baso # (Auto) 0.1 (0.0-0.1) 10^3/uL Absolute Nucleated RBC 0.00 x10^3/uL Nucleated RBC % 0.0 /100WBC PT 13.3 H (9.9-12.6) secs INR 1.2 (0.8-1.2) Sodium 137 132 L (135-145) mmol/L Potassium 3.7 4.2 (3.5-4.5) mmol/L Chloride 98 L 96 L (101-111) mmol/L Carbon Dioxide 32 28 (21-32) mmol/L Anion Gap 7.0 8.0 (6-13) BUN 15 16 (6-20) mg/dL Creatinine 0.8 0.8 (0.6-1.3) mg/dL Estimated GFR (MDRD) 76 L 76 L (>89) Glucose 95 96 (74-104) mg/dL Calcium 8.9 9.0 (8.5-10.3) mg/dL Phosphorus 5.3 H (2.5-5.0) mg/dL Magnesium 2.2 (1.7-2.3) mg/dL Total Bilirubin 0.3 (0.2-1.0) mg/dL AST 9 L (10-42) IU/L ALT 8 L (10-60) IU/L Alkaline Phosphatase 109 (42-121) IU/L Total Protein 6.8 (6.4-8.9) g/dL Albumin 3.0 L (3.2-5.5) g/dL Globulin 3.8 (2.1-4.2) g/dL Albumin/Globulin Ratio 0.8 L (1.0-2.2) Prealbumin 22 (17-34) mg/dL ABX Reporting Has patient been on IV antibiotics over the past 48 hours?: Yes Sepsis Event Note (H) Evaluation Current Stage of Sepsis: Sepsis Possible source of Sepsis: positive Bone/Joint, Skin/soft tissue and Wound Sepsis Criteria Sepsis Criteria: Suspected or Documented Assessment/Plan Problem List (1) Abscess of right shoulder: Impression: Underwent I&D on 06/17/2024 with wound packing. REdo on 06/23. 06/28:Discussed today with Dr. Christiansen. The wound is looking much marble cleaner. There is less purulent material coming from it. He repacked the wound today. He feels more confident that she will not require further operative intervention. 06/27:Seen today with Dr. Wayne. There is still purulent material along with serous drainage coming out of the wound. The wound bed was irrigated copiously at the bedside with approximately 100 cc of normal saline. Patient tolerated this well. Wound bed was repacked with 1 inch strip gauze. Orthopedics will irrigate and repacked the wound again tomorrow. The wound is not better but it is also not much worse.. Decision was made not to return to the operating room this afternoon. We will continue to monitor. 06/26/24: PAcking left in place. wound with scant milky draiange expressed, serous drainage on top dressing. I will look at this with Dr Wayne tomorrow, no indication at this time that infection is not controlled. Barriers to discharge at this time are confidence by her medical team that the infection is under control and will not require further surgical intervention. Further barrier is having an outpatient wound care plan. We are waiting to hear from a home health agency that can possibly take on the need for wound care. This patient does not drive. 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 06/25/24: Dressing and packing changed today. There is serosanguineous drainage on the top dressing. There is a small amount of pus on the packing. The joint cavity was packed tightly with 1 inch plain gauze. I placed Xeroform on top of this and a bulky 4 x 4 dressing secured with tape. There is no foul smell. There is no cellulitis. I am able to express a small amount of thin drainage from the wound. Discussed very briefly with Dr Wayne who will change the packing on 06/27. 06/24/24. Seen by humphrey Penn. no concerns. Dressing change will be done by hospitalist 06/25. I have discussed her care with Dr Wayne today 06/23/24: There is purulent drainage coming from the suture line. She is going back to the operating room this afternoon for reopening of the joint debridement and washout. I discussed the patient with Dr. Wayne today. I will change the dressing on Monday 06/25 and then orthopedics will follow-up with the patient. 06/21/2024: Wound packing changed yesterday by Humphrey ZEE. Abscess cultures pending. Blood cultures showing MRSA (2) Sepsis: Impression: Reported to be febrile up to 103 F at time of admit. no record of this in the flowsheets. Was placed on broad-spectrum coverage with cefepime, daptomycin, clindamycin Starting 06/18/2024. Blood cultures have since shown MRSA. De-escalated to Dapto. Central line has been removed. She will need a negative blood culture before we can replace it. Blood cultures with no growth x 3 days. PICC was replaced on 06/25. She had previously been dependent on right sided subclavian central line. She will need to complete 2 weeks of daptomycin for positive blood cultures. She has a history of elevated CK in the past with daptomycin. I rechecked her CK it is 14 on 06/22 .. Needs weekly CKs while on daptomycin. recheck CK on 06/29. Her CRP bumped slightly up on 06/25, but back down. WBC remains normal. Qualifiers: Sepsis acute organ dysfunction status: without acute organ dysfunction Sepsis type: methicillin resistant Staphylococcus aureus Qualified Code(s): A 41.02 - Sepsis due to Methicillin resistant Staphylococcus aureus (3) Hyperkalemia: Impression: She has been hypokalemic and then hyperkalemic. I will monitor this. I have stopped the po Kcl. . I have discussed her hospital TPN formulation with the pharmacist today. We will try to minimize the potassium. In the outpatient environment patient states that she takes her Lasix on for 3 days off for 3 days and that she has not had problems with her potassium. I think that being off of her home Lasix and taking her home TPN tipped the balance of her potassium in the wrong direction. One dose of Lokelma was effective, and K remains normal today. She should get home dose lasix while here, and we will monitor her K level. Continue with daily chemistries to watch K and Na Laboratory Tests 06/27/24 06/27/24 06/28/24 04:52 14:00 05:40 Sodium 132 L 132 L 137 Potassium 5.2 H 4.2 3.7 Balance of lasix administration and TPN formulation, WRT potassium need to be carefully monitored in the outpatient environment. (4) Shoulder pain: Impression: Patient has chronic shoulder pain due to torn rotator cuff. She is also experiencing pain from the abscess. Patient has scheduled and PRN pain management medication orders in place. 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 This was done when she was in her 30s. She has been on TPN for this long. It is She is managed by a shed boss in the outpatient environment. I get the impression that this is overall overseen by her PCP. I do not know why some sort of enteral (small bowel) feeding has not been an option. I do not know the extent of her malabsorption syndrome. Here is her explanation for her need for TPN: Discussion with patient regarding her gastroparesis. She has had this problem for a very long time. She had moved to [place] in the early and it was there that she had her gastrectomy. After her gastrectomy it was assumed that she would maintain oral nutrition. She went for several years with vomiting persistently. She developed a severe iron deficiency. She moved to [place] in 2008 and during that process at some point got a jejunostomy tube placed in the [facility]. She states that it was accidentally dislodged several months later. During the interim she was eating for nutrition and vomiting and became severely anemic due to iron deficiency. Around that time she was seen by charter boat captain at [facility] who referred her to a surgeon at the . At that time an NG tube was placed which apparently did not work. She had vomting and reportedly the NG "bent" After that she had an evaluation of her GI motility. The doctor that evaluated her GI motility said she had no small bowel motility up until "right before the colon". It was at that time that it was determined that she would not be able to tolerate enteral feeding. At different times in her life she has had intervals without any source of nutrition via TPN or enteral feeds. She states that she loses a lot of weight and becomes ill during these times. Due to her lack of enteral motility as evaluated by previous physicians it has been determined that her only source of reasonable nutrition will be TPN. Enteral feeding has failed several times in the past. Reglan has not been possible in the past. She was on Reglan for a period of 2 years and developed a pituitary adenoma. Her CVC had to be removed due to being a possible source of her MRSA infection. Patient is able to eat, but regurgiatates frequently and was placed on PPN for a period of days. She has a left sided PICC in place now. She is concerned about this as she is not able to hook this up to medications herself (takes 2 hands to do this). Probably can place an extension to PICC and she will be able to self administer. Her home TPN runs for 12 hours. Alternately, her son can hook this up for her when he gets home from work in the evenings and can unhook before he leaves in the AM. . She has small vessels, and multiple lumen PICC was not an option, Daptomycin- 2 weeks will be completed on 07/01. She may need longer than this due to her septic joint. We will need to consult with ortho regarding this. Availability of TPN/PPN products is of great concern at this point. This is due to a national shortage. We have transitioned back to the patient's supply of TPN. We have used as much of home supply of TPN as possible. More of the patient's home supply is not available, and therefore we will use our own supply and formulations that are made here at the hospital. I will carefully monitor her potassium level. At this point, with 3 days of TPN available at this hospital and an unclear endpoint for when she will be medically clear for discharge, I am looking into transfer to another facility because she does need TPN. Today with elevated phos and elevated triglycerides. We are unable to adjust phos in the TPN, we are holding lipids at this time. I am concerned about the availability of TPN resources. If this patient is unable to discharge to home in the next 3 days, may require transfer in order to obtain needed resources. Balance of lasix administration and TPN formulation, WRT potassium need to be carefully monitored in the outpatient environment. I have spent 55 minutes in the care of this patient today. This includes time [id number], review and ordering of diagnostic imaging and laboratory studies, consultation with other providers. Monitoring the patient's signs symptoms, evaluation of medication effectiveness and patient's response to treatment.
[2024-06-28] MEDS ORDERED: FAT EMULSION 20% 250 ML IV SCH (19:00)
--- NOTE | 2024-06-28 20:07 | POST OP PROGRESS NOTE ---
Subjective General Admit Date: 06/17/24 Procedure Date: 06/25/24 Post Op Days: 3 Procedure Performed: Incision and debridement right shoulder abscess Other Other Information/Narrative: Admit Date: 06/17/24 Procedure Date: 06/17/24 and 06/23/24 Procedure Performed: Incision and debridement right shoulder abscess x2 53 year old female s/p irrigation and debridement of right shoulder for right shoulder abscess on 06/17/24 and 06/23/24. Cultures were positive for MRSA. She has been on Daptomycin. She reports tolerable right shoulder pain. She denies fevers, chills, chest pain, shortness of breath Wound cultures from the operating room are positive for MRSA. Prior to development of abscess she was completing physical therapy for right rotator cuff tear at [facility]. She had limited motion and pain in the shoulder prior to abscess development. Ortho Surgical Progress Note Problem List Problem List: Right shoulder abscess with MRSA septicemia in a malnourished patient - I discussed options both surgical and nonsurgical with the patient and with the internal medicine PA-C. Overall the wound looked relatively clean. No surrounding erythema and minimal purulence was visible with removal of the packing. No additional purlence was expressed with deep palpation. The would was repacked with gauze and dressed with xeroform, cauze and tape. We will continue to do daily packing changes. The patient tolerated the procedure. I discussed this case with Dr. Wayne and she agrees with the plan. I will repeat the dressing change again tomorrow. Given the lack of TPN supply at our facility, this patient may require a transfer to another facility for continued would care and TPN. - Dressing change daily. - Continue IV antibiotics, - Trend CRP daily - continues to downtrend - Sling to be used as needed for comfort - DVT prophylaxis with lovenox and SCDs, ambulate and up to chair as able - Follow up with orthopedic clinic 14 days after surgery for suture removal - Pain management per medicine team - NPO after midnight on 06/29/24 in case she need a formal I & D on 06/30/24. Thang Christiansen MD Ortho [phone] cell Discharge Instructions: * Always ambulate with front wheeled walker until instructed otherwise by your surgeon. Please refer to the booklet provided at [facility] for instructions for ambulation. You can weight-bear as tolerated on the affected extremity. * Avoid crossing your legs when sitting in low chairs to reduce chance of hip dislocation * Follow the pre-operatively agreed upon pain regimen described in the [facility] booklet. As a reminder, the discussed medications include using acetaminophen, ibuprofen, oxycodone and tramadol. * Ice area to decrease pain and swelling * Take Aspirin 81 mg twice daily for 6 weeks for blood clot prevention * Leave dressing in place until follow up in office. You can shower with the dressing in place if it is kept dry and neat * Please call the office if you experience fever, chills, chest pain, shortness of breath, nausea, vomiting, drainage or bleeding * You are scheduled for follow-up with the orthopedic clinic in 5 days * Appreciate input from hospitalist team for management of chronic medical conditions Exam Exam PE: Pleasant malnourished female in NAD. R shoulder: Dressing in place. Dressing removed. Small amount of purulence expressed from wound when packing removed. I was unable to express any additional purulence with deep palpation. There were no remaining pockets of purulence. No surrounding erythema or warmth SILT axillary/r/u/m Fires epl/fpl/io Rad pulse 2+ and brisk cap refill. No joint irritability with passive movement.
[2024-06-29 06:06] LABS: ALBUMIN 3.1 g/dL (3.2-5.5); ALBUMIN/GLOBULIN RATIO 0.8 (1.0-2.2); BILIRUBIN,TOTAL 0.3 mg/dL (0.2-1.0); CREATININE 0.8 mg/dL (0.6-1.3); CRP - C-REACTIVE PROTEIN 7.5 mg/dL (<0.5); MAGNESIUM 2.1 mg/dL (1.7-2.3); POTASSIUM 4.1 mmol/L (3.5-4.5)
--- NOTE | 2024-06-29 13:47 | PROVIDER PROGRESS NOTE ---
Subjective Prog Note Date Prog Note Date: 06/29/24 Prog Note Time: 13:47 Subjective Pt reports feeling: Worse Subjective: more right shoulder discomfort this afternoon after dressing change, needs an extra pillow to prop it up. She wants to go home as soon as medically possible Current Medications Current Medications Current Medications: Current Medications Generic Name Dose Route Start Last Admin Trade Name Dwayne PRN Reason Stop Dose Admin Acetaminophen 1,000 mg 06/18/24 06:00 06/29/24 05:43 Acetaminophen 500 Mg Tablet PO 1,000 mg TID MY Administration Baclofen 20 mg 06/17/24 22:00 06/29/24 05:43 Baclofen 10 Mg Tablet PO 20 mg TID MY Administration Buspirone HCl 5 mg 06/19/24 09:00 06/29/24 08:47 Buspirone 5 Mg Tablet PO 5 mg DAILY MY Administration Cetirizine HCl 10 mg 06/18/24 21:00 06/28/24 21:14 Cetirizine 10 Mg Tablet PO 10 mg HS MY Administration Cyclobenzaprine HCl 5 mg 06/18/24 14:01 06/26/24 02:19 Cyclobenzaprine 10 Mg Tablet PO 5 mg TID PRN Administration muscle spasms Daptomycin 500 mg 06/18/24 14:45 06/29/24 08:59 Daptomycin 500 Mg Vial IVP 500 mg DAILY MY Administration Docusate Sodium 100 mg 06/18/24 09:00 06/29/24 08:49 Docusate Sodium 100 Mg Capsule PO Not Given BID MY Duloxetine HCl 120 mg 06/19/24 09:00 06/29/24 08:47 Duloxetine 60 Mg Capsule PO 120 mg DAILY MY Administration Enoxaparin Sodium 40 mg 06/18/24 13:00 06/29/24 08:47 Enoxaparin 40 Mg/0.4 Ml Syringe SUBQ Not Given DAILY MY Furosemide 40 mg 06/19/24 09:00 06/29/24 08:51 Furosemide 40 Mg Tablet PO 40 mg DAILY MY Administration Gabapentin 300 mg 06/18/24 14:00 06/29/24 05:43 Gabapentin 300 Mg Capsule PO 300 mg TID MY Administration Gabapentin 300 mg 06/25/24 13:03 06/28/24 21:15 Gabapentin 300 Mg Capsule PO 300 mg TID PRN Administration PAIN 5-7 Heparin Sodium (Beef Lung) 50 unit 06/27/24 09:00 06/29/24 08:48 Heparin Flush 50 Units/5 Ml Syringe IVP Not Given BID [facility] Hydromorphone HCl 0.5 mg 06/18/24 11:25 06/22/24 23:57 Hydromorphone 0.5 Mg/0.5 Ml Syringe IVP 0.5 mg Q2H PRN Administration Severe Pain (Level 7-10) Hydroxyzine Pamoate 100 mg 06/23/24 14:00 06/29/24 05:43 Hydroxyzine Pamoate 25 Mg Capsule PO 100 mg TID [facility] Administration Multivitamins 10 ml/ Zinc/ 2,011 mls @ 70 mls/hr 06/27/24 19:00 06/28/24 18:59 Copper/Manganese/Selenium 1 ml IV 70 mls/hr / Amino Ac/Electrol/Dextrose/ 1900 [facility] Administration Calcium Protocol Fat Emulsion Intravenous 250 mls @ 21 mls/hr 07/02/24 19:00 Intralipid 20% IV [id number] [facility] Ibuprofen 600 mg 06/23/24 14:00 06/29/24 12:05 Ibuprofen 600 Mg Tablet PO 600 mg Q6HR [facility] Administration Lamotrigine 400 mg 06/19/24 21:00 06/28/24 21:14 Lamotrigine 100 Mg Tablet PO 400 mg HS [facility] Administration Montelukast Sodium 10 mg 06/18/24 21:00 06/28/24 21:15 Montelukast 10 Mg Tablet PO 10 mg QPM [facility] Administration Multi-Ingredient Ointment 1 applic 06/27/24 10:27 Zinc Oxide 20% Oint 30 Gm Tube TOP PRN PRN Skin Care Ondansetron HCl 4 mg 06/17/24 21:51 06/25/24 12:26 Ondansetron 4 Mg/2 Ml Vial IVP 4 mg Q6HR PRN Administration Nausea / Vomiting Oxycodone HCl 5 mg 06/18/24 11:25 06/28/24 12:49 Oxycodone 5 Mg Tablet PO 5 mg Q4HR PRN Administration Moderate Pain (Level 4-6) Buprenorphine 20 Mcg 1 each 06/18/24 15:00 06/25/24 22:13 /Hour Patch Weekly TOP 1 each Q7D [facility] Administration Polyethylene Glycol 17 gm 06/19/24 09:00 06/29/24 08:48 Polyethylene Glycol 3350 17 Gm Packet PO Not Given DAILY MY Sodium Chloride 10 ml 06/17/24 21:51 06/22/24 21:33 Sodium Chloride Flush 0.9% 10 Ml Syringe IVP 10 ml PRN PRN Administration NEEDED PER PROVIDER ORDERS Sodium Chloride 10 ml 06/18/24 01:00 06/29/24 08:59 Sodium Chloride Flush 0.9% 10 Ml Syringe IVP 10 ml 0100,0900,1700 MY Administration Objective Vital Signs/Intake & Output Reviewed Vital Signs: Yes Vital Signs: Vital Signs x48h Temp Pulse Resp BP Pulse Ox 06/29/24 08:54 36.5 C 69 20 105/74 96 Intake & Output: Intake & Output 06/27/24 06/28/24 06/29/24 06/30/24 05:59 05:59 05:59 05:59 Intake Total 1050 / 1050 1345 / 1345 2595 / 2595 200 / 200 Output Total 1450 / 1450 2100 / 2100 400 / 400 575 / 575 Balance -400 / -400 -755 / -755 2195 / 2195 -375 / -375 Weight (kg) 60 kg 60 kg Objective General Appearance: positive No acute distress and Alert Eyes Bilateral: positive Normal inspection and PERRL ENT: positive No signs of dehydration Neck: positive Nml inspection Respiratory: positive Chest non-tender, No respiratory distress and Breath sounds nml Cardiovascular: positive Regular rate & rhythm and No murmur Abdomen: positive Non-tender, Nml bowel sounds and No distention Skin: positive Color nml Extremities: positive Non-tender and Other (R shoulder with dressing in place. I will not change dressing today- ortho to do so. there is no erythema or increased edema at the joint. ) Neurologic/Psychiatric: positive Oriented x3, CN's nml (2-12), Motor nml, Sensation nml and Mood/affect nml Lab Results 06/28/24 05:40 06/29/24 05:40 Other Labs: Lab Results x24hrs 06/29/24 Range/Units 05:40 Sodium 136 (135-145) mmol/L Potassium 4.1 (3.5-4.5) mmol/L Chloride 96 L (101-111) mmol/L Carbon Dioxide 33 H (21-32) mmol/L Anion Gap 7.0 (6-13) BUN 21 H (6-20) mg/dL Creatinine 0.8 (0.6-1.3) mg/dL Estimated GFR (MDRD) 76 L (>89) Glucose 100 (74-104) mg/dL Calcium 9.0 (8.5-10.3) mg/dL Phosphorus 5.0 (2.5-5.0) mg/dL Magnesium 2.1 (1.7-2.3) mg/dL Total Bilirubin 0.3 (0.2-1.0) mg/dL AST 9 L (10-42) IU/L ALT 7 L (10-60) IU/L Alkaline Phosphatase 103 (42-121) IU/L C-Reactive Protein 7.5 H (<0.5) mg/dL Total Protein 7.0 (6.4-8.9) g/dL Albumin 3.1 L (3.2-5.5) g/dL Globulin 3.9 (2.1-4.2) g/dL Albumin/Globulin Ratio 0.8 L (1.0-2.2) Prealbumin 23 (17-34) mg/dL ABX Reporting Has patient been on IV antibiotics over the past 48 hours?: Yes Sepsis Event Note (H) Evaluation Current Stage of Sepsis: Sepsis Possible source of Sepsis: positive Bone/Joint, Skin/soft tissue and Wound Sepsis Criteria Sepsis Criteria: Suspected or Documented Assessment/Plan Problem List (1) Abscess of right shoulder: Impression: Underwent I&D on 06/17/2024 with wound packing. REdo on 06/23. 06/29:Disccused with ortho this afternoon. there is some purulent material coming from the wound. bedside flushed with about 400cc saline and repacked. NPO after MN, ortho will reassess in the AM and decide if needs OR washout. 06/28:Discussed today with Dr. Christiansen. The wound is looking much line cleaner. There is less purulent material coming from it. He repacked the wound today. He feels more confident that she will not require further operative intervention. 06/27:Seen today with Dr. Wayne. There is still purulent material along with serous drainage coming out of the wound. The wound bed was irrigated copiously at the bedside with approximately 100 cc of normal saline. Patient tolerated this well. Wound bed was repacked with 1 inch strip gauze. Orthopedics will irrigate and repacked the wound again tomorrow. The wound is not better but it is also not much worse.. Decision was made not to return to the operating room this afternoon. We will continue to monitor. 06/26/24: PAcking left in place. wound with scant milky draiange expressed, serous drainage on top dressing. I will look at this with Dr Wayne tomorrow, no indication at this time that infection is not controlled. Barriers to discharge at this time are confidence by her medical team that the infection is under control and will not require further surgical intervention. Further barrier is having an outpatient wound care plan. We are waiting to hear from a home health agency that can possibly take on the need for wound care. This patient does not drive. 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 06/25/24: Dressing and packing changed today. There is serosanguineous drainage on the top dressing. There is a small amount of pus on the packing. The joint cavity was packed tightly with 1 inch plain gauze. I placed Xeroform on top of this and a bulky 4 x 4 dressing secured with tape. There is no foul smell. There is no cellulitis. I am able to express a small amount of thin drainage from the wound. Discussed very briefly with Dr aWyne who will change the packing on 06/27. 06/24/24. Seen by humphrey Penn. no concerns. Dressing change will be done by hospitalist 06/25. I have discussed her care with Dr Wayne today 06/23/24: There is purulent drainage coming from the suture line. She is going back to the operating room this afternoon for reopening of the joint debridement and washout. I discussed the patient with Dr. Wayne today. I will change the dressing on Monday 06/25 and then orthopedics will follow-up with the patient. 06/21/2024: Wound packing changed yesterday by Humphrey ZEE. Abscess cultures pending. Blood cultures showing MRSA (2) Sepsis: Impression: Reported to be febrile up to 103 F at time of admit. no record of this in the flowsheets. Was placed on broad-spectrum coverage with cefepime, daptomycin, clindamycin Starting 06/18/2024. Blood cultures have since shown MRSA. De-escalated to Dapto. Central line has been removed. She will need a negative blood culture before we can replace it. Blood cultures with no growth x 3 days. PICC was replaced on 06/25. She had previously been dependent on right sided subclavian central line. She will need to complete 2 weeks of daptomycin for positive blood cultures. She has a history of elevated CK in the past with daptomycin. I rechecked her CK it is 14 on 06/22 .. Needs weekly CKs while on daptomycin. recheck CK on 06/30- ordered. Her CRP bumped slightly up on 06/25, but back down, now up again. WBC remains normal. Laboratory Tests 06/26/24 06/27/24 06/28/24 05:55 04:52 05:40 WBC 6.9 8.6 5.8 C-Reactive Protein 8.9 H 6.0 H 06/29/24 05:40 WBC C-Reactive Protein 7.5 H Qualifiers: Sepsis acute organ dysfunction status: without acute organ dysfunction Sepsis type: methicillin resistant Staphylococcus aureus Qualified Code(s): A 41.02 - Sepsis due to Methicillin resistant Staphylococcus aureus (3) Hyperkalemia: Impression: She has been hypokalemic and then hyperkalemic. I will monitor this. I have stopped the po Kcl. . I have discussed her hospital TPN formulation with the pharmacist today. We will try to minimize the potassium. In the outpatient environment patient states that she takes her Lasix on for 3 days off for 3 days and that she has not had problems with her potassium. I think that being off of her home Lasix and taking her home TPN tipped the balance of her potassium in the wrong direction. One dose of Lokelma was effective, and K remains normal today. She should get home dose lasix while here, and we will monitor her K level. Continue with daily chemistries to watch K and Na Laboratory Tests 06/27/24 06/27/24 06/28/24 04:52 14:00 05:40 Sodium 132 L 132 L 137 Potassium 5.2 H 4.2 3.7 Balance of lasix administration and TPN formulation, WRT potassium need to be carefully monitored in the outpatient environment. (4) Shoulder pain: Impression: Patient has chronic shoulder pain due to torn rotator cuff. She is also experiencing pain from the abscess. Patient has scheduled and PRN pain management medication orders in place. Qualifiers: Chronicity: unspecified Laterality: right Qualified Code(s): M25.511 - Pain in right shoulder (5) On total parenteral nutrition (TPN): Impression: Patient was on watermaster TPN via CVC due to hx of gastric surgery. 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 This was done when she was in her 30s. She has been on TPN for this long. It is She is managed by a sales development executive in the outpatient environment. I get the impression that this is overall overseen by her PCP. I do not know why some sort of enteral (small bowel) feeding has not been an option. I do not know the extent of her malabsorption syndrome. Here is her explanation for her need for TPN: Discussion with patient regarding her gastroparesis. She has had this problem for a very long time. She had moved to [place] in the early and it was there that she had her gastrectomy. After her gastrectomy it was assumed that she would maintain oral nutrition. She went for several years with vomiting persistently. She developed a severe iron deficiency. She moved to [place] in 2008 and during that process at some point got a jejunostomy tube placed in the [facility]. She states that it was accidentally dislodged several months later. During the interim she was eating for nutrition and vomiting and became severely anemic due to iron deficiency. Around that time she was seen by manager market at [facility] who referred her to a surgeon at the . At that time an NG tube was placed which apparently did not work. She had vomting and reportedly the NG "bent" After that she had an evaluation of her GI motility. The doctor that evaluated her GI motility said she had no small bowel motility up until "right before the colon". It was at that time that it was determined that she would not be able to tolerate enteral feeding. At different times in her life she has had intervals without any source of nutrition via TPN or enteral feeds. She states that she loses a lot of weight and becomes ill during these times. Due to her lack of enteral motility as evaluated by previous physicians it has been determined that her only source of reasonable nutrition will be TPN. Enteral feeding has failed several times in the past. Reglan has not been possible in the past. She was on Reglan for a period of 2 years and developed a pituitary adenoma. Her CVC had to be removed due to being a possible source of her MRSA infection. Patient is able to eat, but regurgiatates frequently and was placed on PPN for a period of days. She has a left sided PICC in place now. She is concerned about this as she is not able to hook this up to medications herself (takes 2 hands to do this). Probably can place an extension to PICC and she will be able to self administer. Her home TPN runs for 12 hours. Alternately, her son can hook this up for her when he gets home from work in the evenings and can unhook before he leaves in the AM. . She has small vessels, and multiple lumen PICC was not an option, Daptomycin- 2 weeks will be completed on 07/01. She may need longer than this due to her septic joint. We will need to consult with ortho regarding this. Availability of TPN/PPN products is of great concern at this point. This is due to a national shortage. We have transitioned back to the patient's supply of TPN. We have used as much of home supply of TPN as possible. More of the patient's home supply is not available, and therefore we will use our own supply and formulations that are made here at the hospital. I will carefully monitor her potassium level. At this point, with 3 days of TPN available at this hospital and an unclear endpoint for when she will be medically clear for discharge, I am looking into transfer to another facility because she does need TPN. Today with elevated phos and elevated triglycerides. We are unable to adjust phos in the TPN, we are holding lipids at this time. I am concerned about the availability of TPN resources. If this patient is unable to discharge to home in the next 3 days, may require transfer in order to obtain needed resources. Balance of lasix administration and TPN formulation, WRT potassium need to be carefully monitored in the outpatient environment. I have spent 52 minutes in the care of this patient today. This includes time [id number], review and ordering of diagnostic imaging and laboratory studies, consultation with other providers. Monitoring the patient's signs symptoms, evaluation of medication effectiveness and patient's response to treatment.
--- NOTE | 2024-06-29 15:37 | PROVIDER PROGRESS NOTE ---
Subjective General Admit Date: 06/17/24 Procedure Date: 06/25/24 Post Op Days: 4 Procedure Performed: Irrigation and debridement of right shoulder abscess Other Other Information/Narrative: 53 year old female status post irrigation debridement of right shoulder for right shoulder abscess on 06/17/2024 and 06/23/[address] Wayne at [facility]. Blood cultures were positive for MRSA and has been treated with daptomycin. Today she denies fever, chills, chest pain and dyspnea. No nausea or emesis. Pain is tolerable about the right shoulder. Review of Systems Status of ROS: See HPI Exam Exam malnourished 53 year old female, no acute distress, comfortable in bed Dressing in place and was then removed. Incision is clean, nylon sutures in place. Small purulence expressed with removal of wound packing. Some purulence expressed with deep palpation. No surrounding erythema or warmth or fluctuance. Neurovascularly intact to right upper extremity Impression/Plan Problem List (1) Abscess of right shoulder: Plan: 53 year old female with right shoulder abscess with MRSA septicemia. She is now status post irrigation and debridement of the shoulder on 06/17/24 and 06/23/24. Patient was evaluated by myself and Dr. Christiansen. There was some purulence expressed with deep palpation today. The wound was irrigated with 200 cc of sterile saline. The wound was repacked with 1 inch gauze and dressed with Xeroform, gauze and foam tape. The patient tolerated the procedure. Per internal medicine, TPN supply at [facility] is adequate for several more days. There is no formal plan to transfer the patient today. Plan: - Daily dressing changes - Continue IV antibiotics - Trend CRP daily - NPO at midnight for possible irrigation and debridement on 06/30/24 - Sling to be used as needed for comfort - DVT prophylaxis with lovenox and SCDs, ambulation up to chair as able - PT referral placed today for range of motion as tolerated - Follow up with orthopedic clinic 14 days after surgery for suture removal - Pain management per internal medicine (2) Sepsis: Qualifiers: Sepsis acute organ dysfunction status: without acute organ dysfunction Sepsis type: methicillin resistant Staphylococcus aureus Qualified Code(s): A41.02 - Sepsis due to Methicillin resistant Staphylococcus aureus (3) Hyperkalemia: (4) Shoulder pain: Qualifiers: Chronicity: unspecified Laterality: right Qualified Code(s): M25.511 - Pain in right shoulder (5) On total parenteral nutrition (TPN):
[2024-06-30 05:37] LABS: BASOPHILS # (AUTO) 0.1 10^3/uL (0.0-0.1); BASOPHILS % (AUTO) 1.1 %; EOSINOPHILS # (AUTO) 0.2 10^3/uL (0.0-0.7); EOSINOPHILS % (AUTO) 3.2 %; HCT - HEMATOCRIT 27.8 % (37.0-47.0); HGB - HEMOGLOBIN 8.7 g/dL (12.0-16.0); LYMPHOCYTES # (AUTO) 1.2 10^3/uL (1.5-3.5); LYMPHOCYTES % (AUTO) 23.3 %; MEAN CORPUSCULAR HEMOGLOBIN 26.3 pg (27.0-31.0); MEAN CORPUSCULAR HGB CONC 31.3 g/dL (32.0-36.0); MEAN PLATELET VOLUME 9.6 fL (7.9-10.8); MONOCYTES # (AUTO) 0.4 10^3/uL (0.0-1.0); MONOCYTES % (AUTO) 7.4 %; NEUTROPHILS # (AUTO) 3.4 10^3/uL (1.5-6.6); NEUTROPHILS % (AUTO) 64.4 %; PLT - PLATELET COUNT 453 10^3/uL (130-450); RED BLOOD COUNT 3.31 10^6/uL (4.20-5.40); RED CELL DISTRIBUTION WIDTH 15.8 % (12.0-15.0); WHITE BLOOD COUNT 5.3 x10^3/uL (4.8-10.8)
[2024-06-30 05:53] LABS: ALBUMIN 2.8 g/dL (3.2-5.5); ALBUMIN/GLOBULIN RATIO 0.8 (1.0-2.2); BILIRUBIN,TOTAL 0.3 mg/dL (0.2-1.0); CALCIUM 8.7 mg/dL (8.5-10.3); CREATININE 0.7 mg/dL (0.6-1.3); CRP - C-REACTIVE PROTEIN 4.6 mg/dL (<0.5); POTASSIUM 3.9 mmol/L (3.5-4.5); TOTAL PROTEIN 6.3 g/dL (6.4-8.9)
--- NOTE | 2024-06-30 10:43 | PROVIDER PROGRESS NOTE ---
Subjective Prog Note Date Prog Note Date: 06/30/24 Subjective Pt reports feeling: No change Subjective: Pus was expectorated yesterday by orthopedics. N.p.o. today for possible OR Current Medications Current Medications Current Medications: Current Medications Generic Name Dose Route Start Last Admin Trade Name Freq PRN Reason Stop Dose Admin Acetaminophen 1,000 mg 06/18/24 06:00 06/30/24 05:57 Acetaminophen 500 Mg Tablet PO 1,000 mg TID MY Administration Baclofen 20 mg 06/17/24 22:00 06/30/24 05:57 Baclofen 10 Mg Tablet PO 20 mg TID MY Administration Buspirone HCl 5 mg 06/19/24 09:00 06/29/24 08:47 Buspirone 5 Mg Tablet PO 5 mg DAILY MY Administration Cetirizine HCl 10 mg 06/18/24 21:00 06/29/24 21:20 Cetirizine 10 Mg Tablet PO 10 mg HS MY Administration Cyclobenzaprine HCl 5 mg 06/18/24 14:01 06/26/24 02:19 Cyclobenzaprine 10 Mg Tablet PO 5 mg TID PRN Administration muscle spasms Daptomycin 500 mg 06/18/24 14:45 06/30/24 08:53 Daptomycin 500 Mg Vial IVP 500 mg DAILY MY Administration Docusate Sodium 100 mg 06/18/24 09:00 06/29/24 21:21 Docusate Sodium 100 Mg Capsule PO Not Given BID MY Duloxetine HCl 120 mg 06/19/24 09:00 06/29/24 08:47 Duloxetine 60 Mg Capsule PO 120 mg DAILY MY Administration Enoxaparin Sodium 40 mg 06/18/24 13:00 06/29/24 08:47 Enoxaparin 40 Mg/0.4 Ml Syringe SUBQ Not Given DAILY MY Furosemide 40 mg 06/19/24 09:00 06/29/24 08:51 Furosemide 40 Mg Tablet PO 40 mg DAILY MY Administration Gabapentin 300 mg 06/18/24 14:00 06/30/24 05:57 Gabapentin 300 Mg Capsule PO 300 mg TID MY Administration Gabapentin 300 mg 06/25/24 13:03 06/29/24 21:21 Gabapentin 300 Mg Capsule PO 300 mg TID PRN Administration PAIN 5-7 Heparin Sodium (Beef Lung) 50 unit 06/27/24 09:00 06/30/24 08:55 Heparin Flush 50 Units/5 Ml Syringe IVP Not Given BID MY Hydromorphone HCl 0.5 mg 06/18/24 11:25 06/22/24 23:57 Hydromorphone 0.5 Mg/0.5 Ml Syringe IVP 0.5 mg Q2H PRN Administration Severe Pain (Level 7-10) Hydroxyzine Pamoate 100 mg 06/23/24 14:00 06/30/24 05:57 Hydroxyzine Pamoate 25 Mg Capsule PO 100 mg TID MY Administration Multivitamins 10 ml/ Zinc/ 2,011 mls @ 70 mls/hr 06/27/24 19:00 06/29/24 19:02 Copper/Manganese/Selenium 1 ml IV 70 mls/hr / Amino Ac/Electrol/Dextrose/ 1900 MY Administration Calcium Protocol Fat Emulsion Intravenous 250 mls @ 21 mls/hr 07/02/24 19:00 Intralipid 20% IV MoFr@1900 MY Ibuprofen 600 mg 06/23/24 14:00 06/30/24 05:57 Ibuprofen 600 Mg Tablet PO 600 mg Q6HR MY Administration Lamotrigine 400 mg 06/19/24 21:00 06/29/24 21:20 Lamotrigine 100 Mg Tablet PO 400 mg HS MY Administration Montelukast Sodium 10 mg 06/18/24 21:00 06/29/24 21:19 Montelukast 10 Mg Tablet PO 10 mg QPM MY Administration Multi-Ingredient Ointment 1 applic 06/27/24 10:27 Zinc Oxide 20% Oint 30 Gm Tube TOP PRN PRN Skin Care Ondansetron HCl 4 mg 06/17/24 21:51 06/25/24 12:26 Ondansetron 4 Mg/2 Ml Vial IVP 4 mg Q6HR PRN Administration Nausea / Vomiting Oxycodone HCl 5 mg 06/18/24 11:25 06/28/24 12:49 Oxycodone 5 Mg Tablet PO 5 mg Q4HR PRN Administration Moderate Pain (Level 4-6) Buprenorphine 20 Mcg 1 each 06/18/24 15:00 06/25/24 22:13 /Hour Patch Weekly TOP 1 each Q7D MY Administration Polyethylene Glycol 17 gm 06/19/24 09:00 06/30/24 08:53 Polyethylene Glycol 3350 17 Gm Packet PO 17 gm DAILY MY Administration Sodium Chloride 10 ml 06/17/24 21:51 06/22/24 21:33 Sodium Chloride Flush 0.9% 10 Ml Syringe IVP 10 ml PRN PRN Administration NEEDED PER PROVIDER ORDERS Sodium Chloride 10 ml 06/18/24 01:00 06/30/24 08:54 Sodium Chloride Flush 0.9% 10 Ml Syringe IVP Not Given 0100,0900,1700 MY Objective Vital Signs/Intake & Output Reviewed Vital Signs: Yes Vital Signs: Vital Signs x48h Temp Pulse Resp BP Pulse Ox 06/30/24 08:55 36.5 C 66 16 115/65 97 Intake & Output: Intake & Output 06/28/24 06/29/24 06/30/24 07/01/24 05:59 05:59 05:59 05:59 Intake Total 1345 / 1345 2595 / 2595 2840 / 2840 Output Total 2100 / 2100 400 / 400 575 / 575 700 / 700 Balance -755 / -755 2195 / 2195 2265 / 2265 -700 / -700 Weight (kg) 60 kg 60 kg 60.5 kg Objective General Appearance: positive No acute distress and Alert Eyes Bilateral: positive Normal inspection and PERRL ENT: positive No signs of dehydration Neck: positive Nml inspection Respiratory: positive Chest non-tender, No respiratory distress and Breath sounds nml Cardiovascular: positive Regular rate & rhythm and No murmur Abdomen: positive Non-tender, Nml bowel sounds and No distention Skin: positive Color nml Extremities: positive Non-tender and Other (R shoulder with dressing in place. I will not change dressing today- ortho to do so. there is no erythema or increased edema at the joint. ) Neurologic/Psychiatric: positive Oriented x3, CN's nml (2-12), Motor nml, Sensation nml and Mood/affect nml Lab Results 06/30/24 04:43 06/30/24 04:43 Other Labs: Lab Results x24hrs 06/30/24 Range/Units 04:43 WBC 5.3 (4.8-10.8) x10^3/uL RBC 3.31 L (4.20-5.40) 10^6/uL Hgb 8.7 L (12.0-16.0) g/dL Hct 27.8 L (37.0-47.0) % MCV 84.0 (81.0-99.0) fL MCH 26.3 L (27.0-31.0) pg MCHC 31.3 L (32.0-36.0) g/dL RDW 15.8 H (12.0-15.0) % Plt Count 453 H (130-450) 10^3/uL MPV 9.6 (7.9-10.8) fL Neut # (Auto) 3.4 (1.5-6.6) 10^3/uL Lymph # (Auto) 1.2 L (1.5-3.5) 10^3/uL [place] # (Auto) 0.4 (0.0-1.0) 10^3/uL Eos # (Auto) 0.2 (0.0-0.7) 10^3/uL Baso # (Auto) 0.1 (0.0-0.1) 10^3/uL Absolute Nucleated RBC 0.00 x10^3/uL Nucleated RBC % 0.0 /100WBC Sodium 135 (135-145) mmol/L Potassium 3.9 (3.5-4.5) mmol/L Chloride 97 L (101-111) mmol/L Carbon Dioxide 33 H (21-32) mmol/L Anion Gap 5.0 L (6-13) BUN 25 H (6-20) mg/dL Creatinine 0.7 (0.6-1.3) mg/dL Estimated GFR (MDRD) 88 L (>89) Glucose 102 (74-104) mg/dL Calcium 8.7 (8.5-10.3) mg/dL Total Bilirubin 0.3 (0.2-1.0) mg/dL AST 9 L (10-42) IU/L ALT 7 L (10-60) IU/L Alkaline Phosphatase 106 (42-121) IU/L Total Creatine Kinase 16 L (30-223) IU/L C-Reactive Protein 4.6 H (<0.5) mg/dL Total Protein 6.3 L (6.4-8.9) g/dL Albumin 2.8 L (3.2-5.5) g/dL Globulin 3.5 (2.1-4.2) g/dL Albumin/Globulin Ratio 0.8 L (1.0-2.2) Sepsis Event Note (H) Evaluation Current Stage of Sepsis: Sepsis Possible source of Sepsis: positive Bone/Joint, Skin/soft tissue and Wound Sepsis Criteria Sepsis Criteria: Suspected or Documented Assessment/Plan Problem List (1) Abscess of right shoulder: Impression: Underwent I&D on 06/17/2024 with wound packing. REdo on 06/23. 06/30: N.p.o. since midnight for possible OR. Will remain inpatient until cleared by orthopedics and will need IV antibiotics at discharge 06/29:Disccused with ortho this afternoon. there is some purulent material coming from the wound. bedside flushed with about 400cc saline and repacked. NPO after MN, ortho will reassess in the AM and decide if needs OR washout. 06/28:Discussed today with Dr. Christiansen. The wound is looking much bell cleaner. There is less purulent material coming from it. He repacked the wound today. He feels more confident that she will not require further operative intervention. 06/27:Seen today with Dr. Wayne. There is still purulent material along with serous drainage coming out of the wound. The wound bed was irrigated copiously at the bedside with approximately 100 cc of normal saline. Patient tolerated this well. Wound bed was repacked with 1 inch strip gauze. Orthopedics will irrigate and repacked the wound again tomorrow. The wound is not better but it is also not much worse.. Decision was made not to return to the operating room this afternoon. We will continue to monitor. 06/26/24: PAcking left in place. wound with scant milky draiange expressed, serous drainage on top dressing. I will look at this with Dr Wayne tomorrow, no indication at this time that infection is not controlled. Barriers to discharge at this time are confidence by her medical team that the infection is under control and will not require further surgical intervention. Further barrier is having an outpatient wound care plan. We are waiting to hear from a home health agency that can possibly take on the need for wound care. This patient does not drive. 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 06/25/24: Dressing and packing changed today. There is serosanguineous drainage on the top dressing. There is a small amount of pus on the packing. The joint cavity was packed tightly with 1 inch plain gauze. I placed Xeroform on top of this and a bulky 4 x 4 dressing secured with tape. There is no foul smell. There is no cellulitis. I am able to express a small amount of thin drainage from the wound. Discussed very briefly with Dr Wayne who will change the packing on 06/27. 06/24/24. Seen by humphrey Penn. no concerns. Dressing change will be done by hospitalist 06/25. I have discussed her care with Dr Wayne today 06/23/24: There is purulent drainage coming from the suture line. She is going back to the operating room this afternoon for reopening of the joint debridement and washout. I discussed the patient with Dr. Wayne today. I will change the dressing on Monday 06/25 and then orthopedics will follow-up with the patient. 06/21/2024: Wound packing changed yesterday by Humphrey ZEE. Abscess cultures pending. Blood cultures showing MRSA (2) Sepsis: Impression: Reported to be febrile up to 103 F at time of admit. no record of this in the flowsheets. Was placed on broad-spectrum coverage with cefepime, daptomycin, clindamycin Starting 06/18/2024. Blood cultures have since shown MRSA. De-escalated to Dapto. Central line was removed and patient received daptomycin until negative blood cultures were obtained. PICC was replaced on 1128. Will discuss outpatient antibiotics with orthopedics, will likely need extended regimen of possibly 1 month of daptomycin. CK today 16 CRP 4.6 today Qualifiers: Sepsis acute organ dysfunction status: without acute organ dysfunction Sepsis type: methicillin resistant Staphylococcus aureus Qualified Code(s): A 41.02 - Sepsis due to Methicillin resistant Staphylococcus aureus (3) Hyperkalemia: Impression: 3.9 today. On TPN BMP daily (4) Shoulder pain: Impression: Patient has chronic shoulder pain due to torn rotator cuff. She is also experiencing pain from the abscess. Patient has scheduled and PRN pain management medication orders in place. Qualifiers: Chronicity: unspecified Laterality: right Qualified Code(s): M25.511 - Pain in right shoulder (5) On total parenteral nutrition (TPN): Impression: Patient was on retirement TPN via CVC due to hx of gastric surgery. 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 This was done when she was in her 30s. She has been on TPN for this long. It is She is managed by a element setter in the outpatient environment. I get the impression that this is overall overseen by her PCP. I do not know why some sort of enteral (small bowel) feeding has not been an option. I do not know the extent of her malabsorption syndrome. Here is her explanation for her need for TPN: Discussion with patient regarding her gastroparesis. She has had this problem for a very long time. She had moved to [place] in the early and it was there that she had her gastrectomy. After her gastrectomy it was assumed that she would maintain oral nutrition. She went for several years with vomiting persistently. She developed a severe iron deficiency. She moved to [place] in 2008 and during that process at some point got a jejunostomy tube placed in the [facility]. She states that it was accidentally dislodged several months later. During the interim she was eating for nutrition and vomiting and became severely anemic due to iron deficiency. Around that time she was seen by wet trimmer at [facility] who referred her to a surgeon at the . At that time an NG tube was placed which apparently did not work. She had vomting and reportedly the NG "bent" After that she had an evaluation of her GI motility. The doctor that evaluated her GI motility said she had no small bowel motility up until "right before the colon". It was at that time that it was determined that she would not be able to tolerate enteral feeding. At different times in her life she has had intervals without any source of nutrition via TPN or enteral feeds. She states that she loses a lot of weight and becomes ill during these times. Due to her lack of enteral motility as evaluated by previous physicians it has been determined that her only source of reasonable nutrition will be TPN. Enteral feeding has failed several times in the past. Reglan has not been possible in the past. She was on Reglan for a period of 2 years and developed a pituitary adenoma. Her CVC had to be removed due to being a possible source of her MRSA infection. Patient is able to eat, but regurgiatates frequently and was placed on PPN for a period of days. She has a left sided PICC in place now. She is concerned about this as she is not able to hook this up to medications herself (takes 2 hands to do this). Probably can place an extension to PICC and she will be able to self administer. Her home TPN runs for 12 hours. Alternately, her son can hook this up for her when he gets home from work in the evenings and can unhook before he leaves in the AM. . She has small vessels, and multiple lumen PICC was not an option, Daptomycin- 2 weeks will be completed on 07/01. She may need longer than this due to her septic joint. We will need to consult with ortho regarding this. Availability of TPN/PPN products is of great concern at this point. This is due to a national shortage. We have transitioned back to the patient's supply of TPN. We have used up her home supply of TPN, and she is now on hospital supply. TPN supplies tenuous at this hospital, there is a possibility of need for transfer at some point just for this
--- NOTE | 2024-06-30 14:44 | POST OP PROGRESS NOTE ---
Subjective General Admit Date: 06/17/24 Procedure Date: 06/25/24 Post Op Days: 5 Procedure Performed: Irrigation and debridement of right shoulder abscess Other Other Information/Narrative: Admit Date: 06/17/24 Procedure Date: 06/25/24 Post Op Days: 4 Procedure Performed: Irrigation and debridement of right shoulder abscess Other Other Information/Narrative: 53 year old female status post irrigation debridement of right shoulder for right shoulder abscess on 06/17/2024 and 06/23/2024. Blood cultures were positive for MRSA and has been treated with daptomycin. Today she denies fever, chills, chest pain and dyspnea. No nausea or emesis. She reports less pain at her shoulder. She has had a packing change daily for the last several days. Review of Systems Status of ROS: See HPI Exam Exam malnourished 53 year old female, no acute distress, comfortable in bed Dressing in place and was then removed. Incision is clean, nylon sutures in place. Scant purulence expressed with removal of wound packing. Some purulence expressed with deep palpation. Erythema 2 cm surrounding lateral aspect of wound. Neurovascularly intact to right upper extremity Impression/Plan Problem List (1) Abscess of right shoulder: Plan: 53 year old female with right shoulder abscess with MRSA septicemia. She is now status post irrigation and debridement of the shoulder on 06/17/24 and 06/23/24. There was some purulence expressed with deep palpation today. The wound was irrigated with 200 cc of sterile saline. The wound was repacked with 1 inch gauze and dressed with gauze and foam tape. The patient tolerated the procedure. Per internal medicine, TPN supply at [facility] is adequate for several more days. There is no formal plan to transfer the patient today. Plan: - Daily dressing changes - Continue IV antibiotics - Trend CRP daily - NPO at midnight for possible irrigation and debridement on 07/01/24 - CT scan to evaluate for additional pocket of pus. I discussed consulting infectious disease with internal medicine team with consideration of changing her antibiotics. Her shoulder wound is still producing purulent drainage. - Sling to be used as needed for comfort - DVT prophylaxis with lovenox and SCDs, ambulation up to chair as able - PT referral placed today for range of motion as tolerated - Follow up with orthopedic clinic 14 days after surgery for suture removal - Pain management per internal medicine Ortho Surgical Progress Note Problem List Discharge Instructions: * Always ambulate with front wheeled walker until instructed otherwise by your surgeon. Please refer to the booklet provided at [facility] for instructions for ambulation. You can weight-bear as tolerated on the affected extremity. * Avoid crossing your legs when sitting in low chairs to reduce chance of hip dislocation * Follow the pre-operatively agreed upon pain regimen described in the [facility] booklet. As a reminder, the discussed medications include using acetaminophen, ibuprofen, oxycodone and tramadol. * Ice area to decrease pain and swelling * Take Aspirin 81 mg twice daily for 6 weeks for blood clot prevention * Leave dressing in place until follow up in office. You can shower with the dressing in place if it is kept dry and neat * Please call the office if you experience fever, chills, chest pain, shortness of breath, nausea, vomiting, drainage or bleeding * You are scheduled for follow-up with the orthopedic clinic in 5 days * Appreciate input from hospitalist team for management of chronic medical conditions
[2024-06-30] MEDS ORDERED: iohexoL-300 100 ML VIAL ONE (16:17)
--- NOTE | 2024-06-30 17:38 | CT Report ---
PROCEDURE: CT Upper Extremity RT W INDICATIONS: Evaluate for abscess TECHNIQUE: Precontrast 3 mm axial sections acquired of the , with coronal and sagittal reformats. After adminis tration of contrast 3 mm axial sections acquired of the , with coronal and sagittal reformats. For r adiation dose reduction, the following was used: automated exposure control, adjustment of mA and/or kV according to patient size. CONTRAST: COMPARISON: None. FINDINGS: Image quality: Excellent. Bones: No visualized fracture or dislocation. No suspicious osseous lesions. Soft tissues: Overall there has been marked interval increase within the number and size of previous ly identified enhancing fluid collections consistent with abscess. There located along predominantly the anterior lateral aspect of the glenohumeral humeral joint. However, there is appearance of low-a ttenuation extending to the margins of the joint space, again less prominent when compared to prior e xam. The largest collection is posterior measuring approximately 1.8 x 1.1 cm compared to 3.2 x 1.6 c m. There remain several small foci of gas within the anterior lateral collection. IMPRESSION: Decreased appearance of multifocal abscesses compared to prior exam. As previously identified, septic arthritis cannot be definitively excluded. No bony erosions are identified to suggest developing ost eomyelitis. Reviewed by: Janice Arana MD on 06/30/2024 5:36 PM PST Approved by: Janice Arana MD on 06/30/2024 5:36 PM PST Station ID: [id number]
[2024-07-01 07:09] LABS: BASOPHILS # (AUTO) 0.1 10^3/uL (0.0-0.1); BASOPHILS % (AUTO) 1.1 %; EOSINOPHILS # (AUTO) 0.2 10^3/uL (0.0-0.7); EOSINOPHILS % (AUTO) 3.2 %; HGB - HEMOGLOBIN 8.9 g/dL (12.0-16.0); LYMPHOCYTES # (AUTO) 1.3 10^3/uL (1.5-3.5); LYMPHOCYTES % (AUTO) 19.7 %; MEAN CORPUSCULAR HEMOGLOBIN 26.6 pg (27.0-31.0); MEAN CORPUSCULAR HGB CONC 31.8 g/dL (32.0-36.0); MEAN CORPUSCULAR VOLUME 83.6 fL (81.0-99.0); MEAN PLATELET VOLUME 9.6 fL (7.9-10.8); MONOCYTES # (AUTO) 0.5 10^3/uL (0.0-1.0); MONOCYTES % (AUTO) 7.9 %; NEUTROPHILS # (AUTO) 4.2 10^3/uL (1.5-6.6); NEUTROPHILS % (AUTO) 66.5 %; PLT - PLATELET COUNT 481 10^3/uL (130-450); RED BLOOD COUNT 3.35 10^6/uL (4.20-5.40); RED CELL DISTRIBUTION WIDTH 15.9 % (12.0-15.0); WHITE BLOOD COUNT 6.3 x10^3/uL (4.8-10.8)
[2024-07-01 07:14] LABS: ALBUMIN/GLOBULIN RATIO 0.8 (1.0-2.2); BILIRUBIN,TOTAL 0.3 mg/dL (0.2-1.0); CALCIUM 8.8 mg/dL (8.5-10.3); CREATININE 0.7 mg/dL (0.6-1.3); CRP - C-REACTIVE PROTEIN 4.4 mg/dL (<0.5); MAGNESIUM 2.1 mg/dL (1.7-2.3); PHOSPHORUS 4.8 mg/dL (2.5-5.0); TOTAL PROTEIN 6.6 g/dL (6.4-8.9)
--- NOTE | 2024-07-01 09:47 | POST OP PROGRESS NOTE ---
Subjective General Admit Date: 06/17/24 Procedure Date: 06/25/24 Post Op Days: 6 Procedure Performed: Irrigation and debridement of right shoulder abscess Other Other Information/Narrative: 53 year old female status post irrigation debridement of right shoulder for right shoulder abscess on 06/17/2024 and 06/23/2024. Blood cultures and abscsess cultures were positive for MRSA and has been treated with daptomycin. Today she denies fever, chills, chest pain and dyspnea. No nausea or emesis. She reports less pain at her shoulder. She has had a packing change daily for the last several days. Review of Systems Status of ROS: See HPI Exam Exam 53 year old female, no acute distress, comfortable in bed Dressing in place and was then removed. Incision is clean, nylon sutures in place. No purulence expressed with removal of wound packing. No purulence expressed with deep palpation. Erythema decreased surrounding lateral aspect of wound. Neurovascularly intact to right upper extremity CT scan of R shoulder: Small fluid collection at dependent posterior portion of shoulder joint. I reviewed the imaging with the radiologist and compared it to her CT scan upon admission. Multiloculated Abscess has resolved, packing and iatrogenic air secondary to open wound and packing identified. Fluid collection posteriorly could be from bedside irrigation completed yesterday prior to CT scan. Impression/Plan Problem List (1) Abscess of right shoulder: Plan: 53 year old female with right shoulder abscess with MRSA septicemia. She is now status post irrigation and debridement of the shoulder on 06/17/24 and 06/23/24. There was No purulence expressed with deep palpation today. The wound was repacked with 1 inch gauze and dressed with gauze and foam tape. The patient tolerated the procedure. Clinically, she is doing much better and her CT scan demonstrates intraarticular fluid but in discussion with radiologist it could be mixture of irrigant and blood products or particulate matter. Will continue with daily packing changes. Plan: - Daily dressing changes - Continue IV antibiotics - Trend CRP daily - Sling to be used as needed for comfort - DVT prophylaxis with lovenox and SCDs, ambulation up to chair as able - PT referral placed today for range of motion as tolerated - Follow up with orthopedic clinic 14 days after surgery for suture removal - Pain management per internal medicine Ortho Surgical Progress Note Problem List Discharge Instructions: * Always ambulate with front wheeled walker until instructed otherwise by your surgeon. Please refer to the booklet provided at [facility] for instructions for ambulation. You can weight-bear as tolerated on the affected extremity. * Avoid crossing your legs when sitting in low chairs to reduce chance of hip dislocation * Follow the pre-operatively agreed upon pain regimen described in the [facility] booklet. As a reminder, the discussed medications include using acetaminophen, ibuprofen, oxycodone and tramadol. * Ice area to decrease pain and swelling * Take Aspirin 81 mg twice daily for 6 weeks for blood clot prevention * Leave dressing in place until follow up in office. You can shower with the dressing in place if it is kept dry and neat * Please call the office if you experience fever, chills, chest pain, shortness of breath, nausea, vomiting, drainage or bleeding * You are scheduled for follow-up with the orthopedic clinic in 5 days * Appreciate input from hospitalist team for management of chronic medical conditions
[2024-07-01] MEDS: LINEZOLID 600 MG/300 ML 600 MG/300 ML BAG IV SCH (09:56)
--- NOTE | 2024-07-01 10:16 | PROVIDER PROGRESS NOTE ---
Subjective Prog Note Date Prog Note Date: 07/01/24 Subjective Pt reports feeling: Improved Subjective: States the amount of drainage from her shoulder is going down Current Medications Current Medications Current Medications: Current Medications Generic Name Dose Route Start Last Admin Trade Name Dwayne PRN Reason Stop Dose Admin Acetaminophen 1,000 mg 06/18/24 06:00 07/01/24 06:41 Acetaminophen 500 Mg Tablet PO 1,000 mg TID MY Administration Baclofen 20 mg 06/17/24 22:00 07/01/24 06:42 Baclofen 10 Mg Tablet PO 20 mg TID YM Administration Cetirizine HCl 10 mg 06/18/24 21:00 06/30/24 21:32 Cetirizine 10 Mg Tablet PO 10 mg HS MY Administration Cyclobenzaprine HCl 5 mg 06/18/24 14:01 06/26/24 02:19 Cyclobenzaprine 10 Mg Tablet PO 5 mg TID PRN Administration muscle spasms Daptomycin 500 mg 06/18/24 14:45 07/01/24 09:56 Daptomycin 500 Mg Vial IVP 500 mg DAILY MY Administration Docusate Sodium 100 mg 06/18/24 09:00 07/01/24 08:24 Docusate Sodium 100 Mg Capsule PO Not Given BID MY Duloxetine HCl 120 mg 06/19/24 09:00 07/01/24 08:24 Duloxetine 60 Mg Capsule PO 120 mg DAILY MY Administration Enoxaparin Sodium 40 mg 06/18/24 13:00 07/01/24 08:24 Enoxaparin 40 Mg/0.4 Ml Syringe SUBQ Not Given DAILY MY Furosemide 40 mg 06/19/24 09:00 07/01/24 08:24 Furosemide 40 Mg Tablet PO 40 mg DAILY MY Administration Gabapentin 300 mg 06/18/24 14:00 07/01/24 06:41 Gabapentin 300 Mg Capsule PO 300 mg TID MY Administration Gabapentin 300 mg 06/25/24 13:03 06/30/24 22:30 Gabapentin 300 Mg Capsule PO 300 mg TID PRN Administration PAIN 5-7 Heparin Sodium (Beef Lung) 50 unit 06/27/24 09:00 07/01/24 08:24 Heparin Flush 50 Units/5 Ml Syringe IVP Not Given BID MY Hydromorphone HCl 0.5 mg 06/18/24 11:25 06/22/24 23:57 Hydromorphone 0.5 Mg/0.5 Ml Syringe IVP 0.5 mg Q2H PRN Administration Severe Pain (Level 7-10) Hydroxyzine Pamoate 100 mg 06/23/24 14:00 07/01/24 06:41 Hydroxyzine Pamoate 25 Mg Capsule PO 100 mg TID MY Administration Multivitamins 10 ml/ Zinc/ 2,011 mls @ 70 mls/hr 06/27/24 19:00 06/30/24 18:54 Copper/Manganese/Selenium 1 ml IV 70 mls/hr / Amino Ac/Electrol/Dextrose/ 1900 MY Administration Calcium Protocol Fat Emulsion Intravenous 250 mls @ 21 mls/hr 07/02/24 19:00 Intralipid 20% IV MoFr@1900 [facility] Linezolid 600 mg in 300 mls @ 600 mls/hr 07/01/24 09:00 07/01/24 09:56 Zyvox 600 Mg/300 Ml IV 600 mls/hr Q12H MY Administration Ibuprofen 600 mg 06/23/24 14:00 07/01/24 06:41 Ibuprofen 600 Mg Tablet PO 600 mg Q6HR MY Administration Lamotrigine 400 mg 06/19/24 21:00 06/30/24 21:32 Lamotrigine 100 Mg Tablet PO 400 mg HS [facility] Administration Montelukast Sodium 10 mg 06/18/24 21:00 06/30/24 21:32 Montelukast 10 Mg Tablet PO 10 mg QPM MY Administration Multi-Ingredient Ointment 1 applic 06/27/24 10:27 Zinc Oxide 20% Oint 30 Gm Tube TOP PRN PRN Skin Care Ondansetron HCl 4 mg 06/17/24 21:51 06/25/24 12:26 Ondansetron 4 Mg/2 Ml Vial IVP 4 mg Q6HR PRN Administration Nausea / Vomiting Oxycodone HCl 5 mg 06/18/24 11:25 06/28/24 12:49 Oxycodone 5 Mg Tablet PO 5 mg Q4HR PRN Administration Moderate Pain (Level 4-6) Buprenorphine 20 Mcg 1 each 06/18/24 15:00 06/25/24 22:13 /Hour Patch Weekly TOP 1 each Q7D MY Administration Polyethylene Glycol 17 gm 06/19/24 09:00 07/01/24 08:24 Polyethylene Glycol 3350 17 Gm Packet PO Not Given DAILY [facility] Sodium Chloride 10 ml 06/17/24 21:51 06/22/24 21:33 Sodium Chloride Flush 0.9% 10 Ml Syringe IVP 10 ml PRN PRN Administration NEEDED PER PROVIDER ORDERS Sodium Chloride 10 ml 06/18/24 01:00 07/01/24 08:24 Sodium Chloride Flush 0.9% 10 Ml Syringe IVP Not Given 0100,0900,1700 [facility] Objective Vital Signs/Intake & Output Reviewed Vital Signs: Yes Vital Signs: Vital Signs x48h Temp Pulse Resp BP Pulse Ox 07/01/24 08:16 36.6 C 71 18 132/90 H 92 Intake & Output: Intake & Output 06/29/24 06/30/24 07/01/24 07/02/24 05:59 05:59 05:59 05:59 Intake Total 2595 / 2595 2840 / 2840 2931 / 2931 Output Total 400 / 400 575 / 575 1750 / 1750 Balance 2195 / 2195 2265 / 2265 1181 / 1181 Weight (kg) 60 kg 60.5 kg 60.2 kg Objective General Appearance: positive No acute distress and Alert Eyes Bilateral: positive Normal inspection and PERRL ENT: positive No signs of dehydration Neck: positive Nml inspection Respiratory: positive Chest non-tender, No respiratory distress and Breath sounds nml Cardiovascular: positive Regular rate & rhythm and No murmur Abdomen: positive Non-tender, Nml bowel sounds and No distention Skin: positive Color nml Extremities: positive Non-tender and Other (R shoulder with dressing in place. I will not change dressing today- ortho to do so. there is no erythema or increased edema at the joint. ) Neurologic/Psychiatric: positive Oriented x3, CN's nml (2-12), Motor nml, Sensation nml and Mood/affect nml Lab Results 07/01/24 06:45 07/01/24 06:45 Other Labs: Lab Results x24hrs 07/01/24 Range/Units 06:45 WBC 6.3 (4.8-10.8) x10^3/uL RBC 3.35 L (4.20-5.40) 10^6/uL Hgb 8.9 L (12.0-16.0) g/dL Hct 28.0 L (37.0-47.0) % MCV 83.6 (81.0-99.0) fL MCH 26.6 L (27.0-31.0) pg MCHC 31.8 L (32.0-36.0) g/dL RDW 15.9 H (12.0-15.0) % Plt Count 481 H (130-450) 10^3/uL MPV 9.6 (7.9-10.8) fL Neut # (Auto) 4.2 (1.5-6.6) 10^3/uL Lymph # (Auto) 1.3 L (1.5-3.5) 10^3/uL Hooker # (Auto) 0.5 (0.0-1.0) 10^3/uL Eos # (Auto) 0.2 (0.0-0.7) 10^3/uL Baso # (Auto) 0.1 (0.0-0.1) 10^3/uL Absolute Nucleated RBC 0.00 x10^3/uL Nucleated RBC % 0.0 /100WBC Sodium 134 L (135-145) mmol/L Potassium 4.0 (3.5-4.5) mmol/L Chloride 95 L (101-111) mmol/L Carbon Dioxide 34 H (21-32) mmol/L Anion Gap 5.0 L (6-13) BUN 23 H (6-20) mg/dL Creatinine 0.7 (0.6-1.3) mg/dL Estimated GFR (MDRD) 88 L (>89) Glucose 95 (74-104) mg/dL Calcium 8.8 (8.5-10.3) mg/dL Phosphorus 4.8 (2.5-5.0) mg/dL Magnesium 2.1 (1.7-2.3) mg/dL Total Bilirubin 0.3 (0.2-1.0) mg/dL AST 9 L (10-42) IU/L ALT 7 L (10-60) IU/L Alkaline Phosphatase 115 (42-121) IU/L C-Reactive Protein 4.4 H (<0.5) mg/dL Total Protein 6.6 (6.4-8.9) g/dL Albumin 3.0 L (3.2-5.5) g/dL Globulin 3.6 (2.1-4.2) g/dL Albumin/Globulin Ratio 0.8 L (1.0-2.2) Prealbumin 23 (17-34) mg/dL Diagnostic Imaging Diagnostic Imaging Results: positive Final report reviewed Diagnostic Imaging Comments: Upper extremity CT with decreased appearance of multifocal abscesses. Septic arthritis not excluded, osteomyelitis not likely Sepsis Event Note (H) Evaluation Current Stage of Sepsis: Sepsis Possible source of Sepsis: positive Bone/Joint, Skin/soft tissue and Wound Sepsis Criteria Sepsis Criteria: Suspected or Documented Assessment/Plan Problem List (1) Abscess of right shoulder: Impression: Underwent I&D on 06/17/2024 with wound packing. REdo on 06/23. 07/01/2024: Discussed case with orthopedic surgery. They expressed purulent material from the wound yesterday, no indication for OR washout today. I am adding linezolid plus daptomycin. I discussed other antibiotic options with pharmacy, however she has a vancomycin allergy and we do not have ceftaroline on formulary. Dietitian on board to optimize nutritional status. 06/30: N.p.o. since midnight for possible OR. Will remain inpatient until cleared by orthopedics and will need IV antibiotics at discharge 06/29:Disccused with ortho this afternoon. there is some purulent material coming from the wound. bedside flushed with about 400cc saline and repacked. NPO after MN, ortho will reassess in the AM and decide if needs OR washout. 06/28:Discussed today with Dr. Christiansen. The wound is looking much casing cleaner. There is less purulent material coming from it. He repacked the wound today. He feels more confident that she will not require further operative intervention. 06/27:Seen today with Dr. Wayne. There is still purulent material along with serous drainage coming out of the wound. The wound bed was irrigated copiously at the bedside with approximately 100 cc of normal saline. Patient tolerated this well. Wound bed was repacked with 1 inch strip gauze. Orthopedics will irrigate and repacked the wound again tomorrow. The wound is not better but it is also not much worse.. Decision was made not to return to the operating room this afternoon. We will continue to monitor. 06/26/24: PAcking left in place. wound with scant milky draiange expressed, serous drainage on top dressing. I will look at this with Dr Wayne tomorrow, no indication at this time that infection is not controlled. Barriers to discharge at this time are confidence by her medical team that the infection is under control and will not require further surgical intervention. Further barrier is having an outpatient wound care plan. We are waiting to hear from a home health agency that can possibly take on the need for wound care. This patient does not drive. 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 06/25/24: Dressing and packing changed today. There is serosanguineous drainage on the top dressing. There is a small amount of pus on the packing. The joint cavity was packed tightly with 1 inch plain gauze. I placed Xeroform on top of this and a bulky 4 x 4 dressing secured with tape. There is no foul smell. There is no cellulitis. I am able to express a small amount of thin drainage from the wound. Discussed very briefly with Dr Wayne who will change the packing on 06/27. 06/24/24. Seen by humphrey Penn. no concerns. Dressing change will be done by hospitalist 06/25. I have discussed her care with Dr Wayne today 06/23/24: There is purulent drainage coming from the suture line. She is going back to the operating room this afternoon for reopening of the joint debridement and washout. I discussed the patient with Dr. Wayne today. I will change the dressing on Monday 06/25 and then orthopedics will follow-up with the patient. 06/21/2024: Wound packing changed yesterday by Humphrey ZEE. Abscess cultures pending. Blood cultures showing MRSA (2) Sepsis: Impression: Reported to be febrile up to 103 F at time of admit. no record of this in the flowsheets. Was placed on broad-spectrum coverage with cefepime, daptomycin, clindamycin Starting 06/18/2024. Blood cultures have since shown MRSA. De-escalated to Dapto. Central line was removed and patient received daptomycin until negative blood cultures were obtained. PICC was replaced on 1128. Will discuss outpatient antibiotics with orthopedics, will likely need extended regimen of possibly 1 month of daptomycin. CK 06/30 16 CRP 4.4 today Qualifiers: Sepsis acute organ dysfunction status: without acute organ dysfunction Sepsis type: methicillin resistant Staphylococcus aureus Qualified Code(s): A 41.02 - Sepsis due to Methicillin resistant Staphylococcus aureus (3) Hyperkalemia: Impression: 4 today. On TPN BMP daily (4) Shoulder pain: Impression: Patient has chronic shoulder pain due to torn rotator cuff. She is also experiencing pain from the abscess. Patient has scheduled and PRN pain management medication orders in place. Qualifiers: Chronicity: unspecified Laterality: right Qualified Code(s): M25.511 - Pain in right shoulder (5) On total parenteral nutrition (TPN): Impression: Patient was on buttermaker helper TPN via CVC due to hx of gastric surgery. 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 This was done when she was in her 30s. She has been on TPN for this long. It is She is managed by a potato peeling machine operator in the outpatient environment. I get the impression that this is overall overseen by her PCP. I do not know why some sort of enteral (small bowel) feeding has not been an option. I do not know the extent of her malabsorption syndrome. Here is her explanation for her need for TPN: Discussion with patient regarding her gastroparesis. She has had this problem for a very long time. She had moved to [place] in the early and it was there that she had her gastrectomy. After her gastrectomy it was assumed that she would maintain oral nutrition. She went for several years with vomiting persistently. She developed a severe iron deficiency. She moved to [place] in 2008 and during that process at some point got a jejunostomy tube placed in the [facility]. She states that it was accidentally dislodged several months later. During the interim she was eating for nutrition and vomiting and became severely anemic due to iron deficiency. Around that time she was seen by diesel service apprentice at [facility] who referred her to a surgeon at the . At that time an NG tube was placed which apparently did not work. She had vomting and reportedly the NG "bent" After that she had an evaluation of her GI motility. The doctor that evaluated her GI motility said she had no small bowel motility up until "right before the colon". It was at that time that it was determined that she would not be able to tolerate enteral feeding. At different times in her life she has had intervals without any source of nutrition via TPN or enteral feeds. She states that she loses a lot of weight and becomes ill during these times. Due to her lack of enteral motility as evaluated by previous physicians it has been determined that her only source of reasonable nutrition will be TPN. Enteral feeding has failed several times in the past. Reglan has not been possible in the past. She was on Reglan for a period of 2 years and developed a pituitary adenoma. Her CVC had to be removed due to being a possible source of her MRSA infection. Patient is able to eat, but regurgiatates frequently and was placed on PPN for a period of days. She has a left sided PICC in place now. She is concerned about this as she is not able to hook this up to medications herself (takes 2 hands to do this). Probably can place an extension to PICC and she will be able to self administer. Her home TPN runs for 12 hours. Alternately, her son can hook this up for her when he gets home from work in the evenings and can unhook before he leaves in the AM. . She has small vessels, and multiple lumen PICC was not an option, Availability of TPN/PPN products is of great concern at this point. This is due to a national shortage. We transitioned back to the patient's supply of TPN. We have used up her home supply of TPN, and she is now on hospital supply. TPN supplies tenuous at this hospital, there is a possibility of need for transfer at some point just for this
[2024-07-02 06:05] LABS: BASOPHILS # (AUTO) 0.1 10^3/uL (0.0-0.1); BASOPHILS % (AUTO) 1.2 %; EOSINOPHILS # (AUTO) 0.2 10^3/uL (0.0-0.7); EOSINOPHILS % (AUTO) 2.9 %; HCT - HEMATOCRIT 28.5 % (37.0-47.0); HGB - HEMOGLOBIN 8.7 g/dL (12.0-16.0); LYMPHOCYTES # (AUTO) 1.2 10^3/uL (1.5-3.5); LYMPHOCYTES % (AUTO) 23.5 %; MEAN CORPUSCULAR HEMOGLOBIN 25.9 pg (27.0-31.0); MEAN CORPUSCULAR HGB CONC 30.5 g/dL (32.0-36.0); MEAN CORPUSCULAR VOLUME 84.8 fL (81.0-99.0); MEAN PLATELET VOLUME 9.8 fL (7.9-10.8); MONOCYTES # (AUTO) 0.4 10^3/uL (0.0-1.0); MONOCYTES % (AUTO) 6.9 %; NEUTROPHILS # (AUTO) 3.4 10^3/uL (1.5-6.6); NEUTROPHILS % (AUTO) 65.1 %; PLT - PLATELET COUNT 453 10^3/uL (130-450); RED BLOOD COUNT 3.36 10^6/uL (4.20-5.40); RED CELL DISTRIBUTION WIDTH 15.9 % (12.0-15.0); WHITE BLOOD COUNT 5.2 x10^3/uL (4.8-10.8)
[2024-07-02 06:23] LABS: ALBUMIN 2.9 g/dL (3.2-5.5); ALBUMIN/GLOBULIN RATIO 0.8 (1.0-2.2); BILIRUBIN,TOTAL 0.3 mg/dL (0.2-1.0); CALCIUM 8.6 mg/dL (8.5-10.3); CREATININE 0.7 mg/dL (0.6-1.3); CRP - C-REACTIVE PROTEIN 3.9 mg/dL (<0.5); POTASSIUM 3.4 mmol/L (3.5-4.5); TOTAL PROTEIN 6.4 g/dL (6.4-8.9)
[2024-07-02] MEDS ORDERED: POTASSIUM CHLORIDE 20 MEQ TABLET PO ONE (07:17)
--- NOTE | 2024-07-02 08:33 | PROVIDER PROGRESS NOTE ---
Subjective Prog Note Date Prog Note Date: 07/02/24 Subjective Pt reports feeling: No change Subjective: Still hopeful that this can be managed without transfer for higher level care Current Medications Current Medications Current Medications: Current Medications Generic Name Dose Route Start Last Admin Trade Name Freq PRN Reason Stop Dose Admin Acetaminophen 1,000 mg 06/18/24 06:00 07/02/24 05:02 Acetaminophen 500 Mg Tablet PO 1,000 mg TID MY Administration Baclofen 20 mg 06/17/24 22:00 07/02/24 05:03 Baclofen 10 Mg Tablet PO 20 mg TID MY Administration Cetirizine HCl 10 mg 06/18/24 21:00 07/01/24 21:43 Cetirizine 10 Mg Tablet PO 10 mg HS MY Administration Cyclobenzaprine HCl 5 mg 06/18/24 14:01 06/26/24 02:19 Cyclobenzaprine 10 Mg Tablet PO 5 mg TID PRN Administration muscle spasms Daptomycin 500 mg 06/18/24 14:45 07/01/24 09:56 Daptomycin 500 Mg Vial IVP 500 mg DAILY MY Administration Docusate Sodium 100 mg 06/18/24 09:00 07/01/24 21:44 Docusate Sodium 100 Mg Capsule PO Not Given BID MY Duloxetine HCl 120 mg 06/19/24 09:00 07/01/24 08:24 Duloxetine 60 Mg Capsule PO 120 mg DAILY MY Administration Enoxaparin Sodium 40 mg 06/18/24 13:00 07/01/24 08:24 Enoxaparin 40 Mg/0.4 Ml Syringe SUBQ Not Given DAILY MY Furosemide 40 mg 06/19/24 09:00 07/01/24 08:24 Furosemide 40 Mg Tablet PO 40 mg DAILY MY Administration Gabapentin 300 mg 06/18/24 14:00 07/02/24 05:03 Gabapentin 300 Mg Capsule PO 300 mg TID MY Administration Gabapentin 300 mg 06/25/24 13:03 07/01/24 21:43 Gabapentin 300 Mg Capsule PO 300 mg TID PRN Administration PAIN 5-7 Heparin Sodium (Beef Lung) 50 unit 06/27/24 09:00 07/01/24 21:43 Heparin Flush 50 Units/5 Ml Syringe IVP Not Given BID MY Hydromorphone HCl 0.5 mg 06/18/24 11:25 06/22/24 23:57 Hydromorphone 0.5 Mg/0.5 Ml Syringe IVP 0.5 mg Q2H PRN Administration Severe Pain (Level 7-10) Hydroxyzine Pamoate 100 mg 06/23/24 14:00 07/02/24 05:02 Hydroxyzine Pamoate 25 Mg Capsule PO 100 mg TID [facility] Administration Multivitamins 10 ml/ Zinc/ 2,011 mls @ 70 mls/hr 06/27/24 19:00 07/01/24 19:37 Copper/Manganese/Selenium 1 ml IV 70 mls/hr / Amino Ac/Electrol/Dextrose/ 1900 [facility] Administration Calcium Protocol Fat Emulsion Intravenous 250 mls @ 21 mls/hr 07/02/24 19:00 Intralipid 20% IV MoFr@1900 [facility] Linezolid 600 mg in 300 mls @ 600 mls/hr 07/01/24 09:00 07/01/24 22:15 Zyvox 600 Mg/300 Ml IV Infused Q12H [facility] Infusion Ibuprofen 600 mg 06/23/24 14:00 07/02/24 05:03 Ibuprofen 600 Mg Tablet PO 600 mg Q6HR [facility] Administration Lamotrigine 400 mg 06/19/24 21:00 07/01/24 21:43 Lamotrigine 100 Mg Tablet PO 400 mg HS [facility] Administration Montelukast Sodium 10 mg 06/18/24 21:00 07/01/24 21:43 Montelukast 10 Mg Tablet PO 10 mg QPM MY Administration Multi-Ingredient Ointment 1 applic 06/27/24 10:27 Zinc Oxide 20% Oint 30 Gm Tube TOP PRN PRN Skin Care Ondansetron HCl 4 mg 06/17/24 21:51 06/25/24 12:26 Ondansetron 4 Mg/2 Ml Vial IVP 4 mg Q6HR PRN Administration Nausea / Vomiting Oxycodone HCl 5 mg 06/18/24 11:25 06/28/24 12:49 Oxycodone 5 Mg Tablet PO 5 mg Q4HR PRN Administration Moderate Pain (Level 4-6) Buprenorphine 20 Mcg 1 each 06/18/24 15:00 06/25/24 22:13 /Hour Patch Weekly TOP 1 each Q7D MY Administration Polyethylene Glycol 17 gm 06/19/24 09:00 07/01/24 08:24 Polyethylene Glycol 3350 17 Gm Packet PO Not Given DAILY [facility] Potassium Chloride 40 meq 07/02/24 09:00 Potassium Chloride 20 Meq Tablet PO 07/02/24 09:01 ONCE ONE Sodium Chloride 10 ml 06/17/24 21:51 06/22/24 21:33 Sodium Chloride Flush 0.9% 10 Ml Syringe IVP 10 ml PRN PRN Administration NEEDED PER PROVIDER ORDERS Sodium Chloride 10 ml 06/18/24 01:00 07/02/24 00:03 Sodium Chloride Flush 0.9% 10 Ml Syringe IVP Not Given 0100,0900,1700 [facility] Objective Vital Signs/Intake & Output Reviewed Vital Signs: Yes Vital Signs: Vital Signs x48h Temp Pulse Resp BP Pulse Ox 07/02/24 08:02 36.5 C 72 16 121/81 98 Intake & Output: Intake & Output 06/30/24 07/01/24 07/02/24 07/03/24 05:59 05:59 05:59 05:59 Intake Total 2840 / 2840 2931 / 2931 2934 / 2934 Output Total 575 / 575 1750 / 1750 1400 / 1400 Balance 2265 / 2265 1181 / 1181 1534 / 1534 Weight (kg) 60.5 kg 60.2 kg Objective General Appearance: positive No acute distress and Alert Eyes Bilateral: positive Normal inspection and PERRL ENT: positive No signs of dehydration Neck: positive Nml inspection Respiratory: positive Chest non-tender, No respiratory distress and Breath sounds nml Cardiovascular: positive Regular rate & rhythm and No murmur Abdomen: positive Non-tender, Nml bowel sounds and No distention Skin: positive Color nml Extremities: positive Non-tender and Other (R shoulder with dressing in place. I will not change dressing today- ortho to do so. there is no erythema or increased edema at the joint. ) Neurologic/Psychiatric: positive Oriented x3, CN's nml (2-12), Motor nml, Sensation nml and Mood/affect nml Lab Results 07/02/24 05:20 07/02/24 05:20 Other Labs: Lab Results x24hrs 07/02/24 07/01/24 Range/Units 05:20 06:45 WBC 5.2 (4.8-10.8) x10^3/uL RBC 3.36 L (4.20-5.40) 10^6/uL Hgb 8.7 L (12.0-16.0) g/dL Hct 28.5 L (37.0-47.0) % MCV 84.8 (81.0-99.0) fL MCH 25.9 L (27.0-31.0) pg MCHC 30.5 L (32.0-36.0) g/dL RDW 15.9 H (12.0-15.0) % Plt Count 453 H (130-450) 10^3/uL MPV 9.8 (7.9-10.8) fL Neut # (Auto) 3.4 (1.5-6.6) 10^3/uL Lymph # (Auto) 1.2 L (1.5-3.5) 10^3/uL Mathews # (Auto) 0.4 (0.0-1.0) 10^3/uL Eos # (Auto) 0.2 (0.0-0.7) 10^3/uL Baso # (Auto) 0.1 (0.0-0.1) 10^3/uL Absolute Nucleated RBC 0.00 x10^3/uL Nucleated RBC % 0.0 /100WBC Sodium 133 L (135-145) mmol/L Potassium 3.4 L (3.5-4.5) mmol/L Chloride 95 L (101-111) mmol/L Carbon Dioxide 33 H (21-32) mmol/L Anion Gap 5.0 L (6-13) BUN 23 H (6-20) mg/dL Creatinine 0.7 (0.6-1.3) mg/dL Estimated GFR (MDRD) 88 L (>89) Glucose 117 H (74-104) mg/dL Calcium 8.6 (8.5-10.3) mg/dL Total Bilirubin 0.3 (0.2-1.0) mg/dL AST 10 (10-42) IU/L ALT 7 L (10-60) IU/L Alkaline Phosphatase 112 (42-121) IU/L C-Reactive Protein 3.9 H (<0.5) mg/dL Total Protein 6.4 (6.4-8.9) g/dL Albumin 2.9 L (3.2-5.5) g/dL Globulin 3.5 (2.1-4.2) g/dL Albumin/Globulin Ratio 0.8 L (1.0-2.2) Triglycerides 327 mg/dL Diagnostic Imaging Diagnostic Imaging Results: positive Final report reviewed Diagnostic Imaging Comments: Upper extremity CT with decreased appearance of multifocal abscesses. Septic arthritis not excluded, osteomyelitis not likely Sepsis Event Note (H) Evaluation Current Stage of Sepsis: Sepsis Possible source of Sepsis: positive Bone/Joint, Skin/soft tissue and Wound Sepsis Criteria Sepsis Criteria: Suspected or Documented Assessment/Plan Problem List (1) Abscess of right shoulder: Impression: Underwent I&D on 06/17/2024 with wound packing. REdo on 06/23. 07/02/2024: Drainage from shoulder is now clear. CRP 3.9 today, was 4.4 yesterday. On Dapto/linezolid. Afebrile, WBC normal. Per Ortho, patient can now be discharged with close follow-up and packing changes every other day 07/01/2024: Discussed case with orthopedic surgery. They expressed purulent material from the wound yesterday, no indication for OR washout today. I am adding linezolid plus daptomycin. I discussed other antibiotic options with pharmacy, however she has a vancomycin allergy and we do not have ceftaroline on formulary. Dietitian on board to optimize nutritional status. 12: N.p.o. since midnight for possible OR. Will remain inpatient until cleared by orthopedics and will need IV antibiotics at discharge 3:Disccused with ortho this afternoon. there is some purulent material coming from the wound. bedside flushed with about 400cc saline and repacked. NPO after MN, ortho will reassess in the AM and decide if needs OR washout. 06/28:Discussed today with Dr. Christiansen. The wound is looking much still cleaner tube. There is less purulent material coming from it. He repacked the wound today. He feels more confident that she will not require further operative intervention. 06/27:Seen today with Dr. Wayne. There is still purulent material along with serous drainage coming out of the wound. The wound bed was irrigated copiously at the bedside with approximately 100 cc of normal saline. Patient tolerated this well. Wound bed was repacked with 1 inch strip gauze. Orthopedics will irrigate and repacked the wound again tomorrow. The wound is not better but it is also not much worse.. Decision was made not to return to the operating room this afternoon. We will continue to monitor. 06/26/24: PAcking left in place. wound with scant milky draiange expressed, serous drainage on top dressing. I will look at this with Dr Wayne tomorrow, no indication at this time that infection is not controlled. Barriers to discharge at this time are confidence by her medical team that the infection is under control and will not require further surgical intervention. Further barrier is having an outpatient wound care plan. We are waiting to hear from a home health agency that can possibly take on the need for wound care. This patient does not drive. 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 06/25/24: Dressing and packing changed today. There is serosanguineous drainage on the top dressing. There is a small amount of pus on the packing. The joint cavity was packed tightly with 1 inch plain gauze. I placed Xeroform on top of this and a bulky 4 x 4 dressing secured with tape. There is no foul smell. There is no cellulitis. I am able to express a small amount of thin drainage from the wound. Discussed very briefly with Dr Wayne who will change the packing on 06/27. 06/24/24. Seen by humphrey Penn. no concerns. Dressing change will be done by hospitalist 06/25. I have discussed her care with Dr Wayne today 06/23/24: There is purulent drainage coming from the suture line. She is going back to the operating room this afternoon for reopening of the joint debridement and washout. I discussed the patient with Dr. Wayne today. I will change the dressing on Monday 06/25 and then orthopedics will follow-up with the patient. 06/21/2024: Wound packing changed yesterday by Humphrey ZEE. Abscess cultures pending. Blood cultures showing MRSA (2) Sepsis: Impression: Reported to be febrile up to 103 F at time of admit. no record of this in the flowsheets. Was placed on broad-spectrum coverage with cefepime, daptomycin, clindamycin Starting 06/18/2024. Blood cultures have since shown MRSA. De-escalated to Dapto. Central line was removed and patient received daptomycin until negative blood cultures were obtained. PICC was replaced on 1128. Will discuss outpatient antibiotics with orthopedics, will likely need extended regimen of possibly 1 month of daptomycin. Sepsis has resolved. Patient will be on course of daptomycin/linezolid for at least a month or as otherwise directed by infectious disease at discharge Qualifiers: Sepsis acute organ dysfunction status: without acute organ dysfunction Sepsis type: methicillin resistant Staphylococcus aureus Qualified Code(s): A 41.02 - Sepsis due to Methicillin resistant Staphylococcus aureus (3) Hyperkalemia: Impression: K3.4 today. Add one-time dose 40 mill equivalent potassium On TPN BMP daily (4) Shoulder pain: Impression: Patient has chronic shoulder pain due to torn rotator cuff. She is also experiencing pain from the abscess. Patient has scheduled and PRN pain management medication orders in place. Qualifiers: Chronicity: unspecified Laterality: right Qualified Code(s): M25.511 - Pain in right shoulder (5) On total parenteral nutrition (TPN): Impression: Patient was on usp TPN via CVC due to hx of gastric surgery. 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 This was done when she was in her 30s. She has been on TPN for this long. It is She is managed by a b2b outside sales representative in the outpatient environment. I get the impression that this is overall overseen by her PCP. I do not know why some sort of enteral (small bowel) feeding has not been an option. I do not know the extent of her malabsorption syndrome. Here is her explanation for her need for TPN: Discussion with patient regarding her gastroparesis. She has had this problem for a very long time. She had moved to [place] in the early and it was there that she had her gastrectomy. After her gastrectomy it was assumed that she would maintain oral nutrition. She went for several years with vomiting persistently. She developed a severe iron deficiency. She moved to [place] in 2008 and during that process at some point got a jejunostomy tube placed in the [facility]. She states that it was accidentally dislodged several months later. During the interim she was eating for nutrition and vomiting and became severely anemic due to iron deficiency. Around that time she was seen by statement request clerk at [facility] who referred her to a surgeon at the . At that time an NG tube was placed which apparently did not work. She had vomting and reportedly the NG "bent" After that she had an evaluation of her GI motility. The doctor that evaluated her GI motility said she had no small bowel motility up until "right before the colon". It was at that time that it was determined that she would not be able to tolerate enteral feeding. At different times in her life she has had intervals without any source of nutrition via TPN or enteral feeds. She states that she loses a lot of weight and becomes ill during these times. Due to her lack of enteral motility as evaluated by previous physicians it has been determined that her only source of reasonable nutrition will be TPN. Enteral feeding has failed several times in the past. Reglan has not been possible in the past. She was on Reglan for a period of 2 years and developed a pituitary adenoma. Her CVC had to be removed due to being a possible source of her MRSA infection. Patient is able to eat, but regurgiatates frequently and was placed on PPN for a period of days. She has a left sided PICC in place now. She is concerned about this as she is not able to hook this up to medications herself (takes 2 hands to do this). Probably can place an extension to PICC and she will be able to self administer. Her home TPN runs for 12 hours. Alternately, her son can hook this up for her when he gets home from work in the evenings and can unhook before he leaves in the AM. . She has small vessels, and multiple lumen PICC was not an option, Availability of TPN/PPN products is of great concern at this point. This is due to a national shortage. We transitioned back to the patient's supply of TPN. We have used up her home supply of TPN, and she is now on hospital supply. TPN supplies tenuous at this hospital, there is a possibility of need for transfer at some point just for this
[2024-07-02] MEDS: POTASSIUM CHLORIDE 20 MEQ TABLET PO ONE (08:43)
--- NOTE | 2024-07-02 10:01 | POST OP PROGRESS NOTE ---
Subjective General Admit Date: 06/17/24 Procedure Date: 06/25/24 Post Op Days: 7 Procedure Performed: Irrigation and debridement of right shoulder abscess Other Other Information/Narrative: 53 year old female status post irrigation debridement of right shoulder for right shoulder abscess on 06/17/2024 and 06/23/2024. Blood cultures and abscsess cultures were positive for MRSA and has been treated with daptomycin. Within the last 24 hours, linezolid was also ordered. Today she denies fever, chills, chest pain and dyspnea. No nausea or emesis. She reports less pain at her shoulder. She has had a packing change daily for the last several days. Yesterday she drained clear liquid without any purulent drainage. She states she is feeling much better. Review of Systems Status of ROS: See HPI Exam Exam 53 year old female, no acute distress, comfortable in bed Dressing in place and was then removed. Incision is clean, nylon sutures in place. No purulence expressed with removal of wound packing. No purulence expressed with deep palpation. Erythema decreased surrounding lateral aspect of wound. Less swelling than yesterday. Neurovascularly intact to right upper extremity Assessment: 53 year old female with right shoulder abscess with MRSA septicemia. She is now status post irrigation and debridement of the shoulder on 06/17/24 and 06/23/24. There was no purulence expressed from wound today and she has painless passive ROM of her joint. Okay to discharge from an orthopedic standpoint. Daily wound packing changes. until discharge. Plan: - Daily dressing changes - Continue IV antibiotics - Sling to be used as needed for comfort - DVT prophylaxis with lovenox and SCDs, ambulation up to chair as able - PT for range of motion as tolerated - Follow up with orthopedic clinic 14 days after surgery for suture removal - Pain management per internal medicine Ortho Surgical Progress Note Problem List Discharge Instructions: * Always ambulate with front wheeled walker until instructed otherwise by your surgeon. Please refer to the booklet provided at [facility] for instructions for ambulation. You can weight-bear as tolerated on the affected extremity. * Avoid crossing your legs when sitting in low chairs to reduce chance of hip dislocation * Follow the pre-operatively agreed upon pain regimen described in the joint [place] booklet. As a reminder, the discussed medications include using acetaminophen, ibuprofen, oxycodone and tramadol. * Ice area to decrease pain and swelling * Take Aspirin 81 mg twice daily for 6 weeks for blood clot prevention * Leave dressing in place until follow up in office. You can shower with the dressing in place if it is kept dry and neat * Please call the office if you experience fever, chills, chest pain, shortness of breath, nausea, vomiting, drainage or bleeding * You are scheduled for follow-up with the orthopedic clinic in 5 days * Appreciate input from hospitalist team for management of chronic medical conditions
[2024-07-02] MEDS: FAT EMULSION 20% 250 ML IV SCH (19:08)
[2024-07-03 06:36] LABS: BASOPHILS # (AUTO) 0.1 10^3/uL (0.0-0.1); BASOPHILS % (AUTO) 1.4 %; EOSINOPHILS # (AUTO) 0.2 10^3/uL (0.0-0.7); EOSINOPHILS % (AUTO) 4.8 %; HCT - HEMATOCRIT 26.8 % (37.0-47.0); HGB - HEMOGLOBIN 8.4 g/dL (12.0-16.0); LYMPHOCYTES # (AUTO) 1.2 10^3/uL (1.5-3.5); LYMPHOCYTES % (AUTO) 28.1 %; MEAN CORPUSCULAR HEMOGLOBIN 26.3 pg (27.0-31.0); MEAN CORPUSCULAR HGB CONC 31.3 g/dL (32.0-36.0); MEAN PLATELET VOLUME 9.5 fL (7.9-10.8); MONOCYTES # (AUTO) 0.3 10^3/uL (0.0-1.0); MONOCYTES % (AUTO) 8.2 %; NEUTROPHILS # (AUTO) 2.4 10^3/uL (1.5-6.6); NEUTROPHILS % (AUTO) 57.3 %; PLT - PLATELET COUNT 434 10^3/uL (130-450); RED BLOOD COUNT 3.19 10^6/uL (4.20-5.40); RED CELL DISTRIBUTION WIDTH 15.5 % (12.0-15.0); WHITE BLOOD COUNT 4.2 x10^3/uL (4.8-10.8)
[2024-07-03 06:41] LABS: INR 1.2 (0.8-1.2); PT - PROTHROMBIN TIME 12.9 secs (9.9-12.6)
[2024-07-03 06:48] LABS: MAGNESIUM 1.9 mg/dL (1.7-2.3)
[2024-07-03 06:54] LABS: ALBUMIN 2.7 g/dL (3.2-5.5); ALBUMIN/GLOBULIN RATIO 0.9 (1.0-2.2); BILIRUBIN,TOTAL 0.3 mg/dL (0.2-1.0); CALCIUM 8.4 mg/dL (8.5-10.3); CREATININE 0.6 mg/dL (0.6-1.3); CRP - C-REACTIVE PROTEIN 2.4 mg/dL (<0.5); PHOSPHORUS 4.6 mg/dL (2.5-5.0); POTASSIUM 3.8 mmol/L (3.5-4.5); TOTAL PROTEIN 5.6 g/dL (6.4-8.9)
--- NOTE | 2024-07-03 08:57 | PROVIDER PROGRESS NOTE ---
Subjective Prog Note Date Prog Note Date: 07/03/24 Subjective Pt reports feeling: No change Subjective: Patient was cleared for discharge yesterday by Ortho. Today is the first avoidable day Current Medications Current Medications Current Medications: Current Medications Generic Name Dose Route Start Last Admin Trade Name Freq PRN Reason Stop Dose Admin Acetaminophen 1,000 mg 06/18/24 06:00 07/03/24 05:37 Acetaminophen 500 Mg Tablet PO 1,000 mg TID MY Administration Baclofen 20 mg 06/17/24 22:00 07/03/24 05:37 Baclofen 10 Mg Tablet PO 20 mg TID MY Administration Cetirizine HCl 10 mg 06/18/24 21:00 07/02/24 21:30 Cetirizine 10 Mg Tablet PO 10 mg HS MY Administration Cyclobenzaprine HCl 5 mg 06/18/24 14:01 06/26/24 02:19 Cyclobenzaprine 10 Mg Tablet PO 5 mg TID PRN Administration muscle spasms Daptomycin 500 mg 06/18/24 14:45 07/03/24 08:50 Daptomycin 500 Mg Vial IVP 500 mg DAILY MY Administration Docusate Sodium 100 mg 06/18/24 09:00 07/03/24 08:50 Docusate Sodium 100 Mg Capsule PO Not Given BID MY Duloxetine HCl 120 mg 06/19/24 09:00 07/03/24 08:50 Duloxetine 60 Mg Capsule PO 120 mg DAILY MY Administration Enoxaparin Sodium 40 mg 06/18/24 13:00 07/03/24 08:50 Enoxaparin 40 Mg/0.4 Ml Syringe SUBQ Not Given DAILY MY Furosemide 40 mg 06/19/24 09:00 07/03/24 08:50 Furosemide 40 Mg Tablet PO 40 mg DAILY MY Administration Gabapentin 300 mg 06/18/24 14:00 07/02/24 21:52 Gabapentin 300 Mg Capsule PO 300 mg TID MY Administration Gabapentin 300 mg 06/25/24 13:03 07/03/24 05:38 Gabapentin 300 Mg Capsule PO 300 mg TID PRN Administration PAIN 5-7 Hydromorphone HCl 0.5 mg 06/18/24 11:25 06/22/24 23:57 Hydromorphone 0.5 Mg/0.5 Ml Syringe IVP 0.5 mg Q2H PRN Administration Severe Pain (Level 7-10) Hydroxyzine Pamoate 100 mg 06/23/24 14:00 07/03/24 05:36 Hydroxyzine Pamoate 25 Mg Capsule PO 100 mg TID MY Administration Multivitamins 10 ml/ Zinc/ 2,011 mls @ 83 mls/hr 06/27/24 19:00 07/02/24 19:08 Copper/Manganese/Selenium 1 ml IV 83 mls/hr / Amino Ac/Electrol/Dextrose/ 1900 MY Administration Calcium Protocol Fat Emulsion Intravenous 250 mls @ 21 mls/hr 07/02/24 19:00 07/02/24 19:08 Intralipid 20% IV 21 mls/hr MoFr@1900 MY Administration Linezolid 600 mg in 300 mls @ 600 mls/hr 07/01/24 09:00 07/03/24 08:51 Zyvox 600 Mg/300 Ml IV 600 mls/hr Q12H MY Administration Ibuprofen 600 mg 06/23/24 14:00 07/03/24 05:38 Ibuprofen 600 Mg Tablet PO 600 mg Q6HR MY Administration Lamotrigine 400 mg 06/19/24 21:00 07/02/24 21:29 Lamotrigine 100 Mg Tablet PO 400 mg HS MY Administration Montelukast Sodium 10 mg 06/18/24 21:00 07/02/24 21:29 Montelukast 10 Mg Tablet PO 10 mg QPM MY Administration Multi-Ingredient Ointment 1 applic 06/27/24 10:27 Zinc Oxide 20% Oint 30 Gm Tube TOP PRN PRN Skin Care Ondansetron HCl 4 mg 06/17/24 21:51 06/25/24 12:26 Ondansetron 4 Mg/2 Ml Vial IVP 4 mg Q6HR PRN Administration Nausea / Vomiting Oxycodone HCl 5 mg 06/18/24 11:25 06/28/24 12:49 Oxycodone 5 Mg Tablet PO 5 mg Q4HR PRN Administration Moderate Pain (Level 4-6) Buprenorphine 20 Mcg 1 each 06/18/24 15:00 07/02/24 15:59 /Hour Patch Weekly TOP 1 each Q7D MY Administration Polyethylene Glycol 17 gm 06/19/24 09:00 07/03/24 08:51 Polyethylene Glycol 3350 17 Gm Packet PO Not Given DAILY [facility] Sodium Chloride 10 ml 06/17/24 21:51 06/22/24 21:33 Sodium Chloride Flush 0.9% 10 Ml Syringe IVP 10 ml PRN PRN Administration NEEDED PER PROVIDER ORDERS Sodium Chloride 10 ml 06/18/24 01:00 07/03/24 08:50 Sodium Chloride Flush 0.9% 10 Ml Syringe IVP 10 ml 0100,0900,1700 MY Administration Objective Vital Signs/Intake & Output Reviewed Vital Signs: Yes Vital Signs: Vital Signs x48h Temp Pulse Resp BP Pulse Ox 07/03/24 08:15 37.0 C 68 16 113/67 96 Intake & Output: Intake & Output 07/01/24 07/02/24 07/03/24 07/04/24 05:59 05:59 05:59 05:59 Intake Total 2931 / 2931 2934 / 2934 3506 / 3506 Output Total 1750 / 1750 1400 / 1400 1999 / 1999 Balance 1181 / 1181 1534 / 1534 1506 / 1506 Weight (kg) 60.5 kg 60.2 kg Objective General Appearance: positive No acute distress and Alert Eyes Bilateral: positive Normal inspection and PERRL ENT: positive No signs of dehydration Neck: positive Nml inspection Respiratory: positive Chest non-tender, No respiratory distress and Breath sounds nml Cardiovascular: positive Regular rate & rhythm and No murmur Abdomen: positive Non-tender, Nml bowel sounds and No distention Skin: positive Color nml Extremities: positive Non-tender and Other (R shoulder with dressing in place) Neurologic/Psychiatric: positive Oriented x3, CN's nml (2-12), Motor nml, Sensation nml and Mood/affect nml Lab Results 07/03/24 06:24 07/03/24 06:24 Other Labs: Lab Results x24hrs 07/03/24 Range/Units 06:24 WBC 4.2 L (4.8-10.8) x10^3/uL RBC 3.19 L (4.20-5.40) 10^6/uL Hgb 8.4 L (12.0-16.0) g/dL Hct 26.8 L (37.0-47.0) % MCV 84.0 (81.0-99.0) fL MCH 26.3 L (27.0-31.0) pg MCHC 31.3 L (32.0-36.0) g/dL RDW 15.5 H (12.0-15.0) % Plt Count 434 (130-450) 10^3/uL MPV 9.5 (7.9-10.8) fL Neut # (Auto) 2.4 (1.5-6.6) 10^3/uL Lymph # (Auto) 1.2 L (1.5-3.5) 10^3/uL [place] # (Auto) 0.3 (0.0-1.0) 10^3/uL Eos # (Auto) 0.2 (0.0-0.7) 10^3/uL Baso # (Auto) 0.1 (0.0-0.1) 10^3/uL Absolute Nucleated RBC 0.00 x10^3/uL Nucleated RBC % 0.0 /100WBC PT 12.9 H (9.9-12.6) secs INR 1.2 (0.8-1.2) Sodium 129 L (135-145) mmol/L Potassium 3.8 (3.5-4.5) mmol/L Chloride 93 L (101-111) mmol/L Carbon Dioxide 31 (21-32) mmol/L Anion Gap 5.0 L (6-13) BUN 22 H (6-20) mg/dL Creatinine 0.6 (0.6-1.3) mg/dL Estimated GFR (MDRD) 105 (>89) Glucose 94 (74-104) mg/dL Calcium 8.4 L (8.5-10.3) mg/dL Phosphorus 4.6 (2.5-5.0) mg/dL Magnesium 1.9 (1.7-2.3) mg/dL Total Bilirubin 0.3 (0.2-1.0) mg/dL AST 10 (10-42) IU/L ALT 6 L (10-60) IU/L Alkaline Phosphatase 100 (42-121) IU/L C-Reactive Protein 2.4 H (<0.5) mg/dL Total Protein 5.6 L (6.4-8.9) g/dL Albumin 2.7 L (3.2-5.5) g/dL Globulin 2.9 (2.1-4.2) g/dL Albumin/Globulin Ratio 0.9 L (1.0-2.2) Prealbumin 20 (17-34) mg/dL Sepsis Event Note (H) Evaluation Current Stage of Sepsis: Sepsis Possible source of Sepsis: positive Bone/Joint, Skin/soft tissue and Wound Sepsis Criteria Sepsis Criteria: Suspected or Documented Assessment/Plan Problem List (1) Abscess of right shoulder: Impression: Underwent I&D on 06/17/2024 with wound packing. REdo on 06/23. 07/03/2024: Cleared for discharge by Ortho yesterday. Ortho will perform every other day dressing changes CRP continues to go down. Continue Dapto/linezolid. Will likely be here until early next week given her very complicated discharge 07/02/2024: Drainage from shoulder is now clear. CRP 3.9 today, was 4.4 yesterday. On Dapto/linezolid. Afebrile, WBC normal. Per Ortho, patient can now be discharged with close follow-up and packing changes every other day 07/01/2024: Discussed case with orthopedic surgery. They expressed purulent material from the wound yesterday, no indication for OR washout today. I am adding linezolid plus daptomycin. I discussed other antibiotic options with pharmacy, however she has a vancomycin allergy and we do not have ceftaroline on formulary. Dietitian on board to optimize nutritional status. 06/30: N.p.o. since midnight for possible OR. Will remain inpatient until cleared by orthopedics and will need IV antibiotics at discharge 3:Disccused with ortho this afternoon. there is some purulent material coming from the wound. bedside flushed with about 400cc saline and repacked. NPO after MN, ortho will reassess in the AM and decide if needs OR washout. 06/28:Discussed today with Dr. Christiansen. The wound is looking much ceiling cleaner. There is less purulent material coming from it. He repacked the wound today. He feels more confident that she will not require further operative intervention. 06/27:Seen today with Dr. Wayne. There is still purulent material along with serous drainage coming out of the wound. The wound bed was irrigated copiously at the bedside with approximately 100 cc of normal saline. Patient tolerated this well. Wound bed was repacked with 1 inch strip gauze. Orthopedics will irrigate and repacked the wound again tomorrow. The wound is not better but it is also not much worse.. Decision was made not to return to the operating room this afternoon. We will continue to monitor. 06/26/24: PAcking left in place. wound with scant milky draiange expressed, serous drainage on top dressing. I will look at this with Dr Wayne tomorrow, no indication at this time that infection is not controlled. Barriers to discharge at this time are confidence by her medical team that the infection is under control and will not require further surgical intervention. Further barrier is having an outpatient wound care plan. We are waiting to hear from a home health agency that can possibly take on the need for wound care. This patient does not drive. 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 06/25/24: Dressing and packing changed today. There is serosanguineous drainage on the top dressing. There is a small amount of pus on the packing. The joint cavity was packed tightly with 1 inch plain gauze. I placed Xeroform on top of this and a bulky 4 x 4 dressing secured with tape. There is no foul smell. There is no cellulitis. I am able to express a small amount of thin drainage from the wound. Discussed very briefly with Dr Wayne who will change the packing on 06/27. 06/24/24. Seen by humphrey Penn. no concerns. Dressing change will be done by hospitalist 06/25. I have discussed her care with Dr Wayne today 06/23/24: There is purulent drainage coming from the suture line. She is going back to the operating room this afternoon for reopening of the joint debridement and washout. I discussed the patient with Dr. Wayne today. I will change the dressing on Monday 06/25 and then orthopedics will follow-up with the patient. 06/21/2024: Wound packing changed yesterday by Humphrey ZEE. Abscess cultures pending. Blood cultures showing MRSA (2) Sepsis: Impression: Reported to be febrile up to 103 F at time of admit. no record of this in the flowsheets. Was placed on broad-spectrum coverage with cefepime, daptomycin, clindamycin Starting 06/18/2024. Blood cultures have since shown MRSA. De-escalated to Dapto. Central line was removed and patient received daptomycin until negative blood cultures were obtained. PICC was replaced on 1128. Will discuss outpatient antibiotics with orthopedics, will likely need extended regimen of possibly 1 month of daptomycin. Sepsis has resolved. Patient will be on course of daptomycin/linezolid for at least a month or as otherwise directed by infectious disease at discharge Qualifiers: Sepsis acute organ dysfunction status: without acute organ dysfunction Sepsis type: methicillin resistant Staphylococcus aureus Qualified Code(s): A 41.02 - Sepsis due to Methicillin resistant Staphylococcus aureus (3) Hyperkalemia: Impression: Resolved. BMP daily (4) Shoulder pain: Impression: Patient has chronic shoulder pain due to torn rotator cuff. She is also experiencing pain from the abscess. Patient has scheduled and PRN pain management medication orders in place. Qualifiers: Chronicity: unspecified Laterality: right Qualified Code(s): M25.511 - Pain in right shoulder (5) On total parenteral nutrition (TPN): Impression: Patient was on terminal system operator TPN via CVC due to hx of gastric surgery. 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 This was done when she was in her 30s. She has been on TPN for this long. It is She is managed by a clinical data research in the outpatient environment. I get the impression that this is overall overseen by her PCP. I do not know why some sort of enteral (small bowel) feeding has not been an option. I do not know the extent of her malabsorption syndrome. Here is her explanation for her need for TPN: Discussion with patient regarding her gastroparesis. She has had this problem for a very long time. She had moved to [place] in the early and it was there that she had her gastrectomy. After her gastrectomy it was assumed that she would maintain oral nutrition. She went for several years with vomiting persistently. She developed a severe iron deficiency. She moved to [place] in 2008 and during that process at some point got a jejunostomy tube placed in the [facility]. She states that it was accidentally dislodged several months later. During the interim she was eating for nutrition and vomiting and became severely anemic due to iron deficiency. Around that time she was seen by candlemaker at [facility] who referred her to a surgeon at the . At that time an NG tube was placed which apparently did not work. She had vomting and reportedly the NG "bent" After that she had an evaluation of her GI motility. The doctor that evaluated her GI motility said she had no small bowel motility up until "right before the colon". It was at that time that it was determined that she would not be able to tolerate enteral feeding. At different times in her life she has had intervals without any source of nutrition via TPN or enteral feeds. She states that she loses a lot of weight and becomes ill during these times. Due to her lack of enteral motility as evaluated by previous physicians it has been determined that her only source of reasonable nutrition will be TPN. Enteral feeding has failed several times in the past. Reglan has not been possible in the past. She was on Reglan for a period of 2 years and developed a pituitary adenoma. Her CVC had to be removed due to being a possible source of her MRSA infection. Patient is able to eat, but regurgiatates frequently and was placed on PPN for a period of days. She has a left sided PICC in place now. She is concerned about this as she is not able to hook this up to medications herself (takes 2 hands to do this). Probably can place an extension to PICC and she will be able to self administer. Her home TPN runs for 12 hours. Alternately, her son can hook this up for her when he gets home from work in the evenings and can unhook before he leaves in the AM. . She has small vessels, and multiple lumen PICC was not an option, Availability of TPN/PPN products is of great concern at this point. This is due to a national shortage. We transitioned back to the patient's supply of TPN. We have used up her home supply of TPN, and she is now on hospital supply. TPN supplies tenuous at this hospital, there is a possibility of need for transfer at some point just for this
--- NOTE | 2024-07-03 12:43 | POST OP PROGRESS NOTE ---
Subjective General Admit Date: 06/17/24 Procedure Date: 06/25/24 Post Op Days: 8 Procedure Performed: Irrigation and debridement of right shoulder abscess Other Other Information/Narrative: 53 year old female status post irrigation debridement of right shoulder for right shoulder abscess on 06/17/2024 and 06/23/2024. Blood cultures and abscess cultures were positive for MRSA and has been treated with daptomycin and now linezolid. Today she denies fever, chills, chest pain and dyspnea. She reports less pain at her shoulder. She has had a packing change daily for the last several days. She has had clear drainage for the last 3 days. She states she is feeling much better. Review of Systems Status of ROS: See HPI Exam Exam 53 year old female, no acute distress, comfortable in bed Dressing in place and was then removed. Incision is clean, nylon sutures in place. No purulence expressed with removal of wound packing. No purulence expressed with deep palpation. No surrounding erythema or warmth. Neurovascularly intact to right upper extremity Assessment: 53 year old female with right shoulder abscess with MRSA septicemia. She is now status post irrigation and debridement of the shoulder on 06/17/24 and 06/23/24. There was no purulence expressed from wound today and she has painless passive ROM of her joint. Okay to discharge from an orthopedic standpoint. Daily wound packing / dressing changes until discharge. Plan: - Daily dressing changes - Continue IV antibiotics - Sling to be used as needed for comfort - DVT prophylaxis with lovenox and SCDs, ambulation up to chair as able - PT for range of motion as tolerated - Follow up with orthopedic clinic 14 days after surgery for suture removal - Pain management and nutrition per internal medicine Ortho Surgical Progress Note Problem List Discharge Instructions: * Always ambulate with front wheeled walker until instructed otherwise by your surgeon. Please refer to the booklet provided at [facility] for instructions for ambulation. You can weight-bear as tolerated on the affected extremity. * Avoid crossing your legs when sitting in low chairs to reduce chance of hip dislocation * Follow the pre-operatively agreed upon pain regimen described in the joint [place] booklet. As a reminder, the discussed medications include using acetaminophen, ibuprofen, oxycodone and tramadol. * Ice area to decrease pain and swelling * Take Aspirin 81 mg twice daily for 6 weeks for blood clot prevention * Leave dressing in place until follow up in office. You can shower with the dressing in place if it is kept dry and neat * Please call the office if you experience fever, chills, chest pain, shortness of breath, nausea, vomiting, drainage or bleeding * You are scheduled for follow-up with the orthopedic clinic in 5 days * Appreciate input from hospitalist team for management of chronic medical conditions
--- NOTE | 2024-07-04 10:09 | PROVIDER PROGRESS NOTE ---
Subjective Prog Note Date Prog Note Date: 07/04/24 Subjective Pt reports feeling: No change Subjective: Patient still feels good, very pleasant and looking forward to going home when possible Current Medications Current Medications Current Medications: Current Medications Generic Name Dose Route Start Last Admin Trade Name Freq PRN Reason Stop Dose Admin Acetaminophen 1,000 mg 06/18/24 06:00 07/04/24 06:41 Acetaminophen 500 Mg Tablet PO 1,000 mg TID MY Administration Baclofen 20 mg 06/17/24 22:00 07/04/24 06:41 Baclofen 10 Mg Tablet PO 20 mg TID MY Administration Cetirizine HCl 10 mg 06/18/24 21:00 07/03/24 21:08 Cetirizine 10 Mg Tablet PO 10 mg HS MY Administration Cyclobenzaprine HCl 5 mg 06/18/24 14:01 06/26/24 02:19 Cyclobenzaprine 10 Mg Tablet PO 5 mg TID PRN Administration muscle spasms Daptomycin 500 mg 06/18/24 14:45 07/04/24 08:33 Daptomycin 500 Mg Vial IVP 500 mg DAILY MY Administration Docusate Sodium 100 mg 06/18/24 09:00 07/04/24 08:34 Docusate Sodium 100 Mg Capsule PO Not Given BID MY Duloxetine HCl 120 mg 06/19/24 09:00 07/04/24 08:34 Duloxetine 60 Mg Capsule PO 120 mg DAILY MY Administration Enoxaparin Sodium 40 mg 06/18/24 13:00 07/04/24 08:34 Enoxaparin 40 Mg/0.4 Ml Syringe SUBQ Not Given DAILY MY Furosemide 40 mg 06/19/24 09:00 07/04/24 08:34 Furosemide 40 Mg Tablet PO 40 mg DAILY MY Administration Gabapentin 300 mg 06/18/24 14:00 07/04/24 06:41 Gabapentin 300 Mg Capsule PO 300 mg TID MY Administration Gabapentin 300 mg 06/25/24 13:03 07/03/24 05:38 Gabapentin 300 Mg Capsule PO 300 mg TID PRN Administration PAIN 5-7 Hydromorphone HCl 0.5 mg 06/18/24 11:25 06/22/24 23:57 Hydromorphone 0.5 Mg/0.5 Ml Syringe IVP 0.5 mg Q2H PRN Administration Severe Pain (Level 7-10) Hydroxyzine Pamoate 100 mg 06/23/24 14:00 07/04/24 06:41 Hydroxyzine Pamoate 25 Mg Capsule PO 100 mg TID MY Administration Multivitamins 10 ml/ Zinc/ 2,011 mls @ 83 mls/hr 06/27/24 19:00 07/03/24 21:47 Copper/Manganese/Selenium 1 ml IV 83 mls/hr / Amino Ac/Electrol/Dextrose/ 1900 MY Infusion Calcium Protocol Fat Emulsion Intravenous 250 mls @ 21 mls/hr 07/02/24 19:00 07/03/24 07:05 Intralipid 20% IV Infused MoFr@1900 MY Infusion Linezolid 600 mg in 300 mls @ 600 mls/hr 07/01/24 09:00 07/04/24 08:34 Zyvox 600 Mg/300 Ml IV 600 mls/hr Q12H MY Administration Ibuprofen 600 mg 06/23/24 14:00 07/04/24 06:42 Ibuprofen 600 Mg Tablet PO 600 mg Q6HR MY Administration Lamotrigine 400 mg 06/19/24 21:00 07/03/24 21:08 Lamotrigine 100 Mg Tablet PO 400 mg HS MY Administration Montelukast Sodium 10 mg 06/18/24 21:00 07/03/24 21:08 Montelukast 10 Mg Tablet PO 10 mg QPM MY Administration Multi-Ingredient Ointment 1 applic 06/27/24 10:27 Zinc Oxide 20% Oint 30 Gm Tube TOP PRN PRN Skin Care Ondansetron HCl 4 mg 06/17/24 21:51 06/25/24 12:26 Ondansetron 4 Mg/2 Ml Vial IVP 4 mg Q6HR PRN Administration Nausea / Vomiting Oxycodone HCl 5 mg 06/18/24 11:25 06/28/24 12:49 Oxycodone 5 Mg Tablet PO 5 mg Q4HR PRN Administration Moderate Pain (Level 4-6) Buprenorphine 20 Mcg 1 each 06/18/24 15:00 07/02/24 15:59 /Hour Patch Weekly TOP 1 each Q7D MY Administration Polyethylene Glycol 17 gm 06/19/24 09:00 07/04/24 08:35 Polyethylene Glycol 3350 17 Gm Packet PO Not Given DAILY [facility] Sodium Chloride 10 ml 06/17/24 21:51 07/03/24 20:01 Sodium Chloride Flush 0.9% 10 Ml Syringe IVP 10 ml PRN PRN Administration NEEDED PER PROVIDER ORDERS Sodium Chloride 10 ml 06/18/24 01:00 07/04/24 08:34 Sodium Chloride Flush 0.9% 10 Ml Syringe IVP 10 ml 0100,0900,1700 MY Administration Objective Vital Signs/Intake & Output Reviewed Vital Signs: Yes Vital Signs: Vital Signs x48h Temp Pulse Resp BP Pulse Ox 07/04/24 08:58 36.5 C 73 16 128/81 98 Intake & Output: Intake & Output 07/02/24 07/03/24 07/04/24 07/05/24 05:59 05:59 05:59 05:59 Intake Total 2934 / 2934 3506 / 3506 4652 / 4652 480 / 480 Output Total 1400 / 1400 1999 / 1999 2600 / 2600 600 / 600 Balance 1534 / 1534 1506 / 1506 2051 / 2051 -120 / -120 Weight (kg) 60.2 kg 63 kg 63.5 kg Objective General Appearance: positive No acute distress and Alert Eyes Bilateral: positive Normal inspection and PERRL ENT: positive No signs of dehydration Neck: positive Nml inspection Respiratory: positive Chest non-tender, No respiratory distress and Breath sounds nml Cardiovascular: positive Regular rate & rhythm and No murmur Abdomen: positive Non-tender, Nml bowel sounds and No distention Skin: positive Color nml Extremities: positive Non-tender and Other (R shoulder with dressing in place) Neurologic/Psychiatric: positive Oriented x3, CN's nml (2-12), Motor nml, Sensation nml and Mood/affect nml Lab Results 07/03/24 06:24 07/03/24 06:24 Other Labs: Lab Results x24hrs 07/03/24 Range/Units 06:24 WBC 4.2 L (4.8-10.8) x10^3/uL RBC 3.19 L (4.20-5.40) 10^6/uL Hgb 8.4 L (12.0-16.0) g/dL Hct 26.8 L (37.0-47.0) % MCV 84.0 (81.0-99.0) fL MCH 26.3 L (27.0-31.0) pg MCHC 31.3 L (32.0-36.0) g/dL RDW 15.5 H (12.0-15.0) % Plt Count 434 (130-450) 10^3/uL MPV 9.5 (7.9-10.8) fL Neut # (Auto) 2.4 (1.5-6.6) 10^3/uL Lymph # (Auto) 1.2 L (1.5-3.5) 10^3/uL [place] # (Auto) 0.3 (0.0-1.0) 10^3/uL Eos # (Auto) 0.2 (0.0-0.7) 10^3/uL Baso # (Auto) 0.1 (0.0-0.1) 10^3/uL Absolute Nucleated RBC 0.00 x10^3/uL Nucleated RBC % 0.0 /100WBC PT 12.9 H (9.9-12.6) secs INR 1.2 (0.8-1.2) Sodium 129 L (135-145) mmol/L Potassium 3.8 (3.5-4.5) mmol/L Chloride 93 L (101-111) mmol/L Carbon Dioxide 31 (21-32) mmol/L Anion Gap 5.0 L (6-13) BUN 22 H (6-20) mg/dL Creatinine 0.6 (0.6-1.3) mg/dL Estimated GFR (MDRD) 105 (>89) Glucose 94 (74-104) mg/dL Calcium 8.4 L (8.5-10.3) mg/dL Phosphorus 4.6 (2.5-5.0) mg/dL Magnesium 1.9 (1.7-2.3) mg/dL Total Bilirubin 0.3 (0.2-1.0) mg/dL AST 10 (10-42) IU/L ALT 6 L (10-60) IU/L Alkaline Phosphatase 100 (42-121) IU/L C-Reactive Protein 2.4 H (<0.5) mg/dL Total Protein 5.6 L (6.4-8.9) g/dL Albumin 2.7 L (3.2-5.5) g/dL Globulin 2.9 (2.1-4.2) g/dL Albumin/Globulin Ratio 0.9 L (1.0-2.2) Prealbumin 20 (17-34) mg/dL Sepsis Event Note (H) Evaluation Current Stage of Sepsis: Sepsis Possible source of Sepsis: positive Bone/Joint, Skin/soft tissue and Wound Sepsis Criteria Sepsis Criteria: Suspected or Documented Assessment/Plan Problem List (1) Abscess of right shoulder: Impression: Underwent I&D on 06/17/2024 with wound packing. REdo on 06/23. 07/03-02/2024: Cleared for discharge by Ortho yesterday. Ortho will perform every other day dressing changes CRP continues to go down. Continue Dapto/linezolid. Will likely be here until early next week given her very complicated discharge 07/02/2024: Drainage from shoulder is now clear. CRP 3.9 today, was 4.4 yesterday. On Dapto/linezolid. Afebrile, WBC normal. Per Ortho, patient can now be discharged with close follow-up and packing changes every other day 07/01/2024: Discussed case with orthopedic surgery. They expressed purulent material from the wound yesterday, no indication for OR washout today. I am adding linezolid plus daptomycin. I discussed other antibiotic options with pharmacy, however she has a vancomycin allergy and we do not have ceftaroline on formulary. Dietitian on board to optimize nutritional status. 124: N.p.o. since midnight for possible OR. Will remain inpatient until cleared by orthopedics and will need IV antibiotics at discharge 123:Disccused with ortho this afternoon. there is some purulent material coming from the wound. bedside flushed with about 400cc saline and repacked. NPO after MN, ortho will reassess in the AM and decide if needs OR washout. 06/28:Discussed today with Dr. Christiansen. The wound is looking much frame cleaner. There is less purulent material coming from it. He repacked the wound today. He feels more confident that she will not require further operative intervention. 06/27:Seen today with Dr. Wayne. There is still purulent material along with serous drainage coming out of the wound. The wound bed was irrigated copiously at the bedside with approximately 100 cc of normal saline. Patient tolerated this well. Wound bed was repacked with 1 inch strip gauze. Orthopedics will irrigate and repacked the wound again tomorrow. The wound is not better but it is also not much worse.. Decision was made not to return to the operating room this afternoon. We will continue to monitor. 06/26/24: PAcking left in place. wound with scant milky draiange expressed, serous drainage on top dressing. I will look at this with Dr Wayne tomorrow, no indication at this time that infection is not controlled. Barriers to discharge at this time are confidence by her medical team that the infection is under control and will not require further surgical intervention. Further barrier is having an outpatient wound care plan. We are waiting to hear from a home health agency that can possibly take on the need for wound care. This patient does not drive. 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 06/25/24: Dressing and packing changed today. There is serosanguineous drainage on the top dressing. There is a small amount of pus on the packing. The joint cavity was packed tightly with 1 inch plain gauze. I placed Xeroform on top of this and a bulky 4 x 4 dressing secured with tape. There is no foul smell. There is no cellulitis. I am able to express a small amount of thin drainage from the wound. Discussed very briefly with Dr Wayne who will change the packing on 06/27. 06/24/24. Seen by humphrey Penn. no concerns. Dressing change will be done by hospitalist 06/25. I have discussed her care with Dr Wayne today 06/23/24: There is purulent drainage coming from the suture line. She is going back to the operating room this afternoon for reopening of the joint debridement and washout. I discussed the patient with Dr. Wayne today. I will change the dressing on Monday 06/25 and then orthopedics will follow-up with the patient. 06/21/2024: Wound packing changed yesterday by Humphrey ZEE. Abscess cultures pending. Blood cultures showing MRSA (2) Sepsis: Impression: Reported to be febrile up to 103 F at time of admit. no record of this in the flowsheets. Was placed on broad-spectrum coverage with cefepime, daptomycin, clindamycin Starting 06/18/2024. Blood cultures have since shown MRSA. De-escalated to Dapto. Central line was removed and patient received daptomycin until negative blood cultures were obtained. PICC was replaced on 1128. Will discuss outpatient antibiotics with orthopedics, will likely need extended regimen of possibly 1 month of daptomycin. Sepsis has resolved. Patient will be on course of daptomycin/linezolid for at least a month or as otherwise directed by infectious disease at discharge Qualifiers: Sepsis acute organ dysfunction status: without acute organ dysfunction Sepsis type: methicillin resistant Staphylococcus aureus Qualified Code(s): A 41.02 - Sepsis due to Methicillin resistant Staphylococcus aureus (3) Hyperkalemia: Impression: Resolved. BMP daily (4) Shoulder pain: Impression: Patient has chronic shoulder pain due to torn rotator cuff. She is also experiencing pain from the abscess. Patient has scheduled and PRN pain management medication orders in place. Qualifiers: Chronicity: unspecified Laterality: right Qualified Code(s): M25.511 - Pain in right shoulder (5) On total parenteral nutrition (TPN): Impression: Patient was on meterman TPN via CVC due to hx of gastric surgery. 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 This was done when she was in her 30s. She has been on TPN for this long. It is She is managed by a spring internship in the outpatient environment. I get the impression that this is overall overseen by her PCP. I do not know why some sort of enteral (small bowel) feeding has not been an option. I do not know the extent of her malabsorption syndrome. Here is her explanation for her need for TPN: Discussion with patient regarding her gastroparesis. She has had this problem for a very long time. She had moved to [place] in the early and it was there that she had her gastrectomy. After her gastrectomy it was assumed that she would maintain oral nutrition. She went for several years with vomiting persistently. She developed a severe iron deficiency. She moved to [place] in 2008 and during that process at some point got a jejunostomy tube placed in the [facility]. She states that it was accidentally dislodged several months later. During the interim she was eating for nutrition and vomiting and became severely anemic due to iron deficiency. Around that time she was seen by nougat candy maker helper at [facility] who referred her to a surgeon at the . At that time an NG tube was placed which apparently did not work. She had vomting and reportedly the NG "bent" After that she had an evaluation of her GI motility. The doctor that evaluated her GI motility said she had no small bowel motility up until "right before the colon". It was at that time that it was determined that she would not be able to tolerate enteral feeding. At different times in her life she has had intervals without any source of nutrition via TPN or enteral feeds. She states that she loses a lot of weight and becomes ill during these times. Due to her lack of enteral motility as evaluated by previous physicians it has been determined that her only source of reasonable nutrition will be TPN. Enteral feeding has failed several times in the past. Reglan has not been possible in the past. She was on Reglan for a period of 2 years and developed a pituitary adenoma. Her CVC had to be removed due to being a possible source of her MRSA infection. Patient is able to eat, but regurgiatates frequently and was placed on PPN for a period of days. She has a left sided PICC in place now. She is concerned about this as she is not able to hook this up to medications herself (takes 2 hands to do this). Probably can place an extension to PICC and she will be able to self administer. Her home TPN runs for 12 hours. Alternately, her son can hook this up for her when he gets home from work in the evenings and can unhook before he leaves in the AM. . She has small vessels, and multiple lumen PICC was not an option, Availability of TPN/PPN products is of great concern at this point. This is due to a national shortage. We transitioned back to the patient's supply of TPN. We have used up her home supply of TPN, and she is now on hospital supply. TPN supplies tenuous at this hospital, there is a possibility of need for transfer at some point just for this
--- NOTE | 2024-07-04 14:26 | POST OP PROGRESS NOTE ---
Subjective General Admit Date: 06/17/24 Procedure Date: 06/25/24 Post Op Days: 9 Procedure Performed: Irrigation and debridement of right shoulder abscess Other Other Information/Narrative: 53 year old female status post irrigation debridement of right shoulder for right shoulder abscess on 06/17/2024 and 06/23/2024. Blood cultures and abscess cultures were positive for MRSA. Currently being treated with daptomycin and linezolid. Today she denies fever, chills, chest pain and dyspnea. She reports minimal pain in her shoulder. She has had a packing change daily for the last several days. She has had clear drainage for the last 4 days. She states she is feeling much better. Ortho Surgical Progress Note Problem List Problem List: Assessment: 53 year old female with right shoulder abscess with MRSA septicemia. She is now status post irrigation and debridement of the shoulder on 06/17/24 and 06/23/24. There was no purulence expressed from wound today and she has painless passive ROM of her joint. Okay to discharge from an orthopedic standpoint. Daily wound packing / dressing changes until discharge. Plan: - Daily dressing changes - Continue IV antibiotics - Sling to be used as needed for comfort - DVT prophylaxis with lovenox and SCDs, ambulation up to chair as able - PT for range of motion as tolerated - Follow up with orthopedic clinic 14 days after surgery for suture removal - Pain management and nutrition per internal medicine Thang Christiansen MD Exam Exam No acute distress, comfortable in bed Dressing in place and was then removed. Incision with small amounts of clear f luid, nylon sutures in place. No purulence expressed with removal of wound packing. No purulence expressed with deep palpation. No surrounding erythema or warmth. Mild hyperemia about the sutures. Neurovascularly intact to right upper extremity
[2024-07-05 08:27] LABS: BASOPHILS # (AUTO) 0.1 10^3/uL (0.0-0.1); BASOPHILS % (AUTO) 0.7 %; EOSINOPHILS # (AUTO) 0.2 10^3/uL (0.0-0.7); EOSINOPHILS % (AUTO) 2.2 %; HCT - HEMATOCRIT 27.5 % (37.0-47.0); HGB - HEMOGLOBIN 8.6 g/dL (12.0-16.0); LYMPHOCYTES # (AUTO) 0.9 10^3/uL (1.5-3.5); LYMPHOCYTES % (AUTO) 10.9 %; MEAN CORPUSCULAR HGB CONC 31.3 g/dL (32.0-36.0); MEAN CORPUSCULAR VOLUME 83.1 fL (81.0-99.0); MEAN PLATELET VOLUME 9.5 fL (7.9-10.8); MONOCYTES # (AUTO) 0.5 10^3/uL (0.0-1.0); MONOCYTES % (AUTO) 5.6 %; NEUTROPHILS # (AUTO) 6.5 10^3/uL (1.5-6.6); NEUTROPHILS % (AUTO) 80.4 %; PLT - PLATELET COUNT 386 10^3/uL (130-450); RED BLOOD COUNT 3.31 10^6/uL (4.20-5.40); RED CELL DISTRIBUTION WIDTH 15.5 % (12.0-15.0); WHITE BLOOD COUNT 8.1 x10^3/uL (4.8-10.8)
[2024-07-05 08:45] LABS: CALCIUM 8.6 mg/dL (8.5-10.3); CREATININE 0.7 mg/dL (0.6-1.3); POTASSIUM 4.3 mmol/L (3.5-4.5)
--- NOTE | 2024-07-05 08:52 | PROVIDER PROGRESS NOTE ---
Subjective Prog Note Date Prog Note Date: 07/05/24 Subjective Pt reports feeling: No change Current Medications Current Medications Current Medications: Current Medications Generic Name Dose Route Start Last Admin Trade Name Freq PRN Reason Stop Dose Admin Acetaminophen 1,000 mg 06/18/24 06:00 07/05/24 05:31 Acetaminophen 500 Mg Tablet PO 1,000 mg TID MY Administration Baclofen 20 mg 06/17/24 22:00 07/05/24 05:32 Baclofen 10 Mg Tablet PO 20 mg TID MY Administration Cetirizine HCl 10 mg 06/18/24 21:00 07/04/24 21:31 Cetirizine 10 Mg Tablet PO 10 mg HS MY Administration Cyclobenzaprine HCl 5 mg 06/18/24 14:01 06/26/24 02:19 Cyclobenzaprine 10 Mg Tablet PO 5 mg TID PRN Administration muscle spasms Daptomycin 500 mg 06/18/24 14:45 07/04/24 08:33 Daptomycin 500 Mg Vial IVP 500 mg DAILY MY Administration Docusate Sodium 100 mg 06/18/24 09:00 07/05/24 07:56 Docusate Sodium 100 Mg Capsule PO Not Given BID MY Duloxetine HCl 120 mg 06/19/24 09:00 07/04/24 08:34 Duloxetine 60 Mg Capsule PO 120 mg DAILY MY Administration Enoxaparin Sodium 40 mg 06/18/24 13:00 07/05/24 07:56 Enoxaparin 40 Mg/0.4 Ml Syringe SUBQ Not Given DAILY MY Furosemide 40 mg 06/19/24 09:00 07/04/24 08:34 Furosemide 40 Mg Tablet PO 40 mg DAILY MY Administration Gabapentin 300 mg 06/18/24 14:00 07/05/24 05:32 Gabapentin 300 Mg Capsule PO 300 mg TID MY Administration Gabapentin 300 mg 06/25/24 13:03 07/04/24 21:32 Gabapentin 300 Mg Capsule PO 300 mg TID PRN Administration PAIN 5-7 Hydromorphone HCl 0.5 mg 06/18/24 11:25 06/22/24 23:57 Hydromorphone 0.5 Mg/0.5 Ml Syringe IVP 0.5 mg Q2H PRN Administration Severe Pain (Level 7-10) Hydroxyzine Pamoate 100 mg 06/23/24 14:00 07/05/24 05:30 Hydroxyzine Pamoate 25 Mg Capsule PO 100 mg TID [facility] Administration Multivitamins 10 ml/ Zinc/ 2,011 mls @ 83 mls/hr 06/27/24 19:00 07/04/24 22:00 Copper/Manganese/Selenium 1 ml IV 83 mls/hr / Amino Ac/Electrol/Dextrose/ 1900 [facility] Infusion Calcium Protocol Fat Emulsion Intravenous 250 mls @ 21 mls/hr 07/02/24 19:00 07/03/24 07:05 Intralipid 20% IV Infused MoFr@1900 [facility] Infusion Linezolid 600 mg in 300 mls @ 600 mls/hr 07/01/24 09:00 07/04/24 22:00 Zyvox 600 Mg/300 Ml IV Infused Q12H [facility] Infusion Ibuprofen 600 mg 06/23/24 14:00 07/05/24 05:31 Ibuprofen 600 Mg Tablet PO 600 mg Q6HR MY Administration Lamotrigine 400 mg 06/19/24 21:00 07/04/24 21:31 Lamotrigine 100 Mg Tablet PO 400 mg HS [facility] Administration Montelukast Sodium 10 mg 06/18/24 21:00 07/04/24 21:30 Montelukast 10 Mg Tablet PO 10 mg QPM MY Administration Multi-Ingredient Ointment 1 applic 06/27/24 10:27 Zinc Oxide 20% Oint 30 Gm Tube TOP PRN PRN Skin Care Ondansetron HCl 4 mg 06/17/24 21:51 06/25/24 12:26 Ondansetron 4 Mg/2 Ml Vial IVP 4 mg Q6HR PRN Administration Nausea / Vomiting Oxycodone HCl 5 mg 06/18/24 11:25 06/28/24 12:49 Oxycodone 5 Mg Tablet PO 5 mg Q4HR PRN Administration Moderate Pain (Level 4-6) Buprenorphine 20 Mcg 1 each 06/18/24 15:00 07/02/24 15:59 /Hour Patch Weekly TOP 1 each Q7D MY Administration Polyethylene Glycol 17 gm 06/19/24 09:00 07/05/24 07:55 Polyethylene Glycol 3350 17 Gm Packet PO Not Given DAILY MY Sodium Chloride 10 ml 06/17/24 21:51 07/03/24 20:01 Sodium Chloride Flush 0.9% 10 Ml Syringe IVP 10 ml PRN PRN Administration NEEDED PER PROVIDER ORDERS Sodium Chloride 10 ml 06/18/24 01:00 07/04/24 23:49 Sodium Chloride Flush 0.9% 10 Ml Syringe IVP Not Given 0100,0900,1700 [facility] Objective Vital Signs/Intake & Output Reviewed Vital Signs: Yes Vital Signs: Vital Signs x48h Temp Pulse Resp BP Pulse Ox 07/05/24 08:26 36.5 C 67 18 118/66 91 L Intake & Output: Intake & Output 07/03/24 07/04/24 07/05/24 07/06/24 05:59 05:59 05:59 05:59 Intake Total 3506 / 3506 4652 / 4652 3987 / 3987 Output Total 1999 2600 / 2600 2725 / 2725 Balance 1506 / 1506 205 / 205 1262 / 1262 Weight (kg) 63 kg 63.5 kg Objective General Appearance: positive No acute distress and Alert Eyes Bilateral: positive Normal inspection and PERRL ENT: positive No signs of dehydration Neck: positive Nml inspection Respiratory: positive Chest non-tender, No respiratory distress and Breath sounds nml Cardiovascular: positive Regular rate & rhythm and No murmur Abdomen: positive Non-tender, Nml bowel sounds and No distention Skin: positive Color nml Extremities: positive Non-tender and Other (R shoulder with dressing in place) Neurologic/Psychiatric: positive Oriented x3, CN's nml (2-12), Motor nml, Sensation nml and Mood/affect nml Lab Results 07/05/24 08:08 07/05/24 08:08 Other Labs: Lab Results x24hrs 07/05/24 07/05/24 07/04/24 Range/Units 08:08 05:35 13:15 WBC 8.1 (4.8-10.8) x10^3/uL RBC 3.31 L (4.20-5.40) 10^6/uL Hgb 8.6 L (12.0-16.0) g/dL Hct 27.5 L (37.0-47.0) % MCV 83.1 (81.0-99.0) fL MCH 26.0 L (27.0-31.0) pg MCHC 31.3 L (32.0-36.0) g/dL RDW 15.5 H (12.0-15.0) % Plt Count 386 (130-450) 10^3/uL MPV 9.5 (7.9-10.8) fL Neut # (Auto) 6.5 (1.5-6.6) 10^3/uL Lymph # (Auto) 0.9 L (1.5-3.5) 10^3/uL Bath # (Auto) 0.5 (0.0-1.0) 10^3/uL Eos # (Auto) 0.2 (0.0-0.7) 10^3/uL Baso # (Auto) 0.1 (0.0-0.1) 10^3/uL Absolute Nucleated RBC 0.00 x10^3/uL Nucleated RBC % 0.0 /100WBC Sodium 129 L (135-145) mmol/L Potassium 4.3 (3.5-4.5) mmol/L Chloride 93 L (101-111) mmol/L Carbon Dioxide 30 (21-32) mmol/L Anion Gap 6.0 (6-13) BUN 25 H (6-20) mg/dL Creatinine 0.7 (0.6-1.3) mg/dL Estimated GFR (MDRD) 88 L (>89) Glucose 109 H (74-104) mg/dL Calcium 8.6 (8.5-10.3) mg/dL C-Reactive Protein 2.9 H 2.7 H (<0.5) mg/dL Triglycerides 263 mg/dL Sepsis Event Note (H) Evaluation Current Stage of Sepsis: Sepsis Possible source of Sepsis: positive Bone/Joint, Skin/soft tissue and Wound Sepsis Criteria Sepsis Criteria: Suspected or Documented Assessment/Plan Problem List (1) Abscess of right shoulder: Impression: Underwent I&D on 06/17/2024 with wound packing. REdo on 06/23. 07/05/2024: CRP 2.9 today. She is afebrile, no elevation in WBC. I have added blood cultures. Will maintain on Dapto/linezolid unless blood cultures show positive 07/03-02/2024: Cleared for discharge by Ortho yesterday. Ortho will perform every other day dressing changes CRP continues to go down. Continue Dapto/linezolid. Will likely be here until early next week given her very complicated discharge 07/02/2024: Drainage from shoulder is now clear. CRP 3.9 today, was 4.4 yesterday. On Dapto/linezolid. Afebrile, WBC normal. Per Ortho, patient can now be discharged with close follow-up and packing changes every other day 07/01/2024: Discussed case with orthopedic surgery. They expressed purulent material from the wound yesterday, no indication for OR washout today. I am adding linezolid plus daptomycin. I discussed other antibiotic options with pharmacy, however she has a vancomycin allergy and we do not have ceftaroline on formulary. Dietitian on board to optimize nutritional status. 06/30: N.p.o. since midnight for possible OR. Will remain inpatient until cleared by orthopedics and will need IV antibiotics at discharge 06/29:Disccused with ortho this afternoon. there is some purulent material coming from the wound. bedside flushed with about 400cc saline and repacked. NPO after MN, ortho will reassess in the AM and decide if needs OR washout. 06/28:Discussed today with Dr. Christiansen. 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 There is less purulent material coming from it. He repacked the wound today. He feels more confident that she will not require further operative intervention. 06/27:Seen today with Dr. Wayne. There is still purulent material along with serous drainage coming out of the wound. The wound bed was irrigated copiously at the bedside with approximately 100 cc of normal saline. Patient tolerated this well. Wound bed was repacked with 1 inch strip gauze. Orthopedics will irrigate and repacked the wound again tomorrow. The wound is not better but it is also not much worse.. Decision was made not to return to the operating room this afternoon. We will continue to monitor. 06/26/24: PAcking left in place. wound with scant milky draiange expressed, serous drainage on top dressing. I will look at this with Dr Wayne tomorrow, no indication at this time that infection is not controlled. Barriers to discharge at this time are confidence by her medical team that the infection is under control and will not require further surgical intervention. Further barrier is having an outpatient wound care plan. We are waiting to hear from a home health agency that can possibly take on the need for wound care. This patient does not drive. 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 06/25/24: Dressing and packing changed today. There is serosanguineous drainage on the top dressing. There is a small amount of pus on the packing. The joint cavity was packed tightly with 1 inch plain gauze. I placed Xeroform on top of this and a bulky 4 x 4 dressing secured with tape. There is no foul smell. There is no cellulitis. I am able to express a small amount of thin drainage from the wound. Discussed very briefly with Dr Wayne who will change the packing on 06/27. 06/24/24. Seen by humphrey Penn. no concerns. Dressing change will be done by hospitalist 06/25. I have discussed her care with Dr Wayne today 06/23/24: There is purulent drainage coming from the suture line. She is going back to the operating room this afternoon for reopening of the joint debridement and washout. I discussed the patient with Dr. Wayne today. I will change the dressing on Monday 06/25 and then orthopedics will follow-up with the patient. 06/21/2024: Wound packing changed yesterday by Humphrey ZEE. Abscess cultures pending. Blood cultures showing MRSA (2) Sepsis: Impression: Reported to be febrile up to 103 F at time of admit. no record of this in the flowsheets. Was placed on broad-spectrum coverage with cefepime, daptomycin, clindamycin Starting 06/18/2024. Blood cultures have since shown MRSA. De-escalated to Dapto. Central line was removed and patient received daptomycin until negative blood cultures were obtained. PICC was replaced on 1128. Will discuss outpatient antibiotics with orthopedics, will likely need extended regimen of possibly 1 month of daptomycin. Sepsis has resolved. Patient will be on course of daptomycin/linezolid for at least a month or as otherwise directed by infectious disease at discharge Qualifiers: Sepsis acute organ dysfunction status: without acute organ dysfunction Sepsis type: methicillin resistant Staphylococcus aureus Qualified Code(s): A 41.02 - Sepsis due to Methicillin resistant Staphylococcus aureus (3) Hyperkalemia: Impression: Resolved. BMP daily (4) Shoulder pain: Impression: Patient has chronic shoulder pain due to torn rotator cuff. She is also experiencing pain from the abscess. Patient has scheduled and PRN pain management medication orders in place. Qualifiers: Chronicity: unspecified Laterality: right Qualified Code(s): M25.511 - Pain in right shoulder (5) On total parenteral nutrition (TPN): Impression: Patient was on terminal manager TPN via CVC due to hx of gastric surgery. 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 This was done when she was in her 30s. She has been on TPN for this long. It is She is managed by a buffing machine tender in the outpatient environment. I get the impression that this is overall overseen by her PCP. I do not know why some sort of enteral (small bowel) feeding has not been an option. I do not know the extent of her malabsorption syndrome. Here is her explanation for her need for TPN: Discussion with patient regarding her gastroparesis. She has had this problem for a very long time. She had moved to [place] in the early and it was there that she had her gastrectomy. After her gastrectomy it was assumed that she would maintain oral nutrition. She went for several years with vomiting persistently. She developed a severe iron deficiency. She moved to [place] in 2008 and during that process at some point got a jejunostomy tube placed in the [facility]. She states that it was accidentally dislodged several months later. During the interim she was eating for nutrition and vomiting and became severely anemic due to iron deficiency. Around that time she was seen by design assistant at [facility] who referred her to a surgeon at the . At that time an NG tube was placed which apparently did not work. She had vomting and reportedly the NG "bent" After that she had an evaluation of her GI motility. The doctor that evaluated her GI motility said she had no small bowel motility up until "right before the colon". It was at that time that it was determined that she would not be able to tolerate enteral feeding. At different times in her life she has had intervals without any source of nutrition via TPN or enteral feeds. She states that she loses a lot of weight and becomes ill during these times. Due to her lack of enteral motility as evaluated by previous physicians it has been determined that her only source of reasonable nutrition will be TPN. Enteral feeding has failed several times in the past. Reglan has not been possible in the past. She was on Reglan for a period of 2 years and developed a pituitary adenoma. Her CVC had to be removed due to being a possible source of her MRSA infection. Patient is able to eat, but regurgiatates frequently and was placed on PPN for a period of days. She has a left sided PICC in place now. She is concerned about this as she is not able to hook this up to medications herself (takes 2 hands to do this). Probably can place an extension to PICC and she will be able to self administer. Her home TPN runs for 12 hours. Alternately, her son can hook this up for her when he gets home from work in the evenings and can unhook before he leaves in the AM. . She has small vessels, and multiple lumen PICC was not an option, Availability of TPN/PPN products is of great concern at this point. This is due to a national shortage. We transitioned back to the patient's supply of TPN. We have used up her home supply of TPN, and she is now on hospital supply. TPN supplies tenuous at this hospital, there is a possibility of need for transfer at some point just for this
--- NOTE | 2024-07-05 16:58 | POST OP PROGRESS NOTE ---
Subjective General Admit Date: 06/17/24 Procedure Date: 06/25/24 Post Op Days: 10 Procedure Performed: Irrigation and debridement of right shoulder abscess Other Other Information/Narrative: 53 year old female status post irrigation debridement of right shoulder for right shoulder abscess on 06/17/2024 and 06/23/2024. Blood cultures and abscess cultures were positive for MRSA. Currently being treated with daptomycin and linezolid. Today she denies fever, chills, chest pain and dyspnea. She reports minimal pain in her shoulder. She has had a packing change daily for the last several days. She has had clear drainage for the last 4 days. She states she is feeling much better. She is ready for discharge tomorrow. Ortho Surgical Progress Note Problem List Discharge Instructions: Assessment: 53 year old female with right shoulder abscess with MRSA septicemia. She is now status post irrigation and debridement of the shoulder on 06/17/24 and 06/23/24. There was no purulence expressed from wound today and she has painless passive ROM of her joint. Okay to discharge from an orthopedic standpoint. No longer packing the wound. She was advised to perform daily dressing changes. Plan: - Daily dressing changes - Continue IV antibiotics - Sling to be used as needed for comfort - DVT prophylaxis with lovenox and SCDs, ambulation up to chair as able - PT for range of motion as tolerated - Follow up with orthopedic clinic next week for wound check and suture removal - Pain management and nutrition per internal medicine Thang Christiansen MD Exam Exam No acute distress, comfortable in bed Dressing in place and was then removed. Incision with small amounts of clear fluid, nylon sutures in place. No purulence expressed with removal of wound packing. No purulence expressed with deep palpation. No surrounding erythema or warmth. Improving hyperemia about the sutures. The wound was not packed today. Just dressed with xeroform, 4x4s and tape. Neurovascularly intact to right upper extremity
[2024-07-06 06:23] LABS: CRP - C-REACTIVE PROTEIN 4.2 mg/dL (<0.5)
[2024-07-06 07:33] LABS: BASOPHILS % (AUTO) 0.8 %; EOSINOPHILS # (AUTO) 0.2 10^3/uL (0.0-0.7); EOSINOPHILS % (AUTO) 4.8 %; HGB - HEMOGLOBIN 8.1 g/dL (12.0-16.0); LYMPHOCYTES # (AUTO) 0.8 10^3/uL (1.5-3.5); LYMPHOCYTES % (AUTO) 17.2 %; MEAN CORPUSCULAR HGB CONC 32.4 g/dL (32.0-36.0); MEAN CORPUSCULAR VOLUME 83.3 fL (81.0-99.0); MEAN PLATELET VOLUME 9.5 fL (7.9-10.8); MONOCYTES # (AUTO) 0.4 10^3/uL (0.0-1.0); MONOCYTES % (AUTO) 7.7 %; NEUTROPHILS # (AUTO) 3.3 10^3/uL (1.5-6.6); NEUTROPHILS % (AUTO) 69.1 %; PLT - PLATELET COUNT 333 10^3/uL (130-450); RED CELL DISTRIBUTION WIDTH 15.5 % (12.0-15.0); WHITE BLOOD COUNT 4.8 x10^3/uL (4.8-10.8)
[2024-07-06 07:45] VITALS: O2SAT 94
[2024-07-06 07:50] LABS: CALCIUM 8.4 mg/dL (8.5-10.3); CREATININE 0.6 mg/dL (0.6-1.3); POTASSIUM 4.2 mmol/L (3.5-4.5)
--- NOTE | 2024-07-06 09:10 | Discharge Summary ---
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 She presented to the ER on 06/14 with complaints of right shoulder pain, at that time described as chronic pain for the past several years, she declined further work up and was discharged home. Today she went to urgent care with complaints of shoulder pain and was referred to ER for fevers. Patient reports that since her ER visit on 06/14 the pain has been progressively worsening. Worse with any movement. She denies abd pain, she has been feeling nauseous and vomited today, denies diarrhea. Fevers up to 102 F at home, febrile 103 F in the ER. She denies chest pain or shortness of breath. Denies alcohol, tobacco or illicit drug use. Patient states that a couple of years ago she had an abscess on her chest that required surgical wash out. She is found to have large right shoulder abscess on imaging in ER, orthopedics consulted and plan for emergent OR tonight. CONSULTS | PROCEDURES Consultations: Orthopedic surgery Procedures: Underwent I&D of the right shoulder on admission and then again on 06/23/2024. HOSPITAL COURSE Hospital Course: Patient underwent I&D several times during admission, she continued to express purulent discharge from her wound until 07/01/2024. Cultures were positive for MRSA, so she was placed on daptomycin. Given slow resolution of wound, she was placed on linezolid as well. Orthopedics recommends daily dressing changes, which the patient can do herself. She will need 30 days of antibiotics for MRSA, and she will return to her home medication regimen ALLERGIES Allergies Allergy/AdvReac Type Severity Reaction Status Date / Time Penicillins Allergy Severe Anaphylaxis Verified 06/17/24 17:59 morphine Allergy Intermediate Hives Verified 06/17/24 17:59 vancomycin Allergy Intermediate Hives Verified 06/17/24 17:59 MEDICATIONS Ambulatory Orders Medication Instructions Recorded Confirmed albuterol sulfate 90 mcg/actuation 1 - 2 puff IH PRN PRN Shortness Of 06/13/21 06/18/24 aerosol inhaler (Ventolin HFA) Air/Wheezing cetirizine 10 mg tablet 10 mg PO HS 06/13/21 06/18/24 duloxetine 60 mg capsule,delayed 120 mg PO DAILY 06/13/21 06/18/24 release (Cymbalta) lamotrigine 200 mg tablet 400 mg PO HS 06/13/21 06/18/24 (Lamictal) montelukast 10 mg tablet 1 tab PO QPM 06/13/21 06/18/24 gabapentin 300 mg capsule 300 mg ORAL TID 11/05/22 06/18/24 biotin 5,000 mcg-lutein 10 mg 2 tab PO DAILY 06/13/23 06/18/24 tablet (Biotin Plus) hydroxyzine HCl 50 mg tablet 100 mg PO TID PRN Anxiety 06/13/23 06/18/24 amino acids 5 %-dextrose 15 2,000 ml IV 1900 06/21/23 06/18/24 %-electrolytes intravenous solution (Clinimix E) mvi, adult no.4 with vit K 3300 10 ml IV 0 06/21/23 06/18/24 unit-150 mcg/10 mL intravenous solution (Infuvite Adult) trace elements Zn 3 mg-Cu 0.3 1 ml IV 0 06/21/23 06/18/24 mg-Mn 55 mcg-Se 60 mcg/mL IV solution (Tralement) baclofen 20 mg tablet 20 mg PO DAILY 06/17/24 06/18/24 buprenorphine 20 mcg/hour weekly 1 patch transdermal Q7D 06/17/24 06/18/24 transdermal patch buspirone 5 mg tablet 5 mg PO DAILY 06/17/24 06/18/24 dextroamphetamine sulfate 20 mg 20 mg PO BID 06/17/24 06/18/24 tablet dextroamphetamine-amphetamine 15 15 mg PO QPM 06/17/24 06/18/24 mg tablet fluticasone 500 mcg-salmeterol 50 1 inh inhalation DAILY 06/17/24 06/18/24 mcg/dose blistr powdr for inhalation (Wixela Inhub) fluticasone propionate 50 1 spray intranasal BID 06/17/24 06/18/24 mcg/actuation nasal spray,suspension furosemide 40 mg tablet 40 mg PO DAILY 06/17/24 06/18/24 meloxicam 15 mg tablet 15 mg PO DAILY 06/17/24 06/18/24 cyclobenzaprine 10 mg tablet 5 - 10 mg PO TID PRN muscle spasms 06/18/24 06/18/24 linezolid 600 mg tablet (Zyvox) 600 mg PO BID #60 tabs 07/05/24 PHYSICAL EXAM AT DISCHARGE General Appearance: positive No acute distress Eyes Bilateral: positive Normal inspection ENT: positive ENT inspection nml Neck: positive Nml inspection Respiratory: positive Chest non-tender and No respiratory distress Cardiovascular: positive Regular rate & rhythm Peripheral Pulses: positive 2+ Abdomen: positive Non-tender and No organomegaly Rectal: positive Non-tender Skin: positive Other (Dressing on right shoulder) Extremities: positive Non-tender and Other (Right BKA) Neurologic/Psychiatric: positive Oriented x3 LABS 07/06/24 07:20 07/06/24 07:20 SEPSIS Current Stage of Sepsis: Sepsis Possible source of Sepsis: Bone/Joint, Skin/soft tissue and Wound Sepsis Criteria: Suspected or Documented FOLLOW UP Follow Up: With PCP, Ortho TIME SPENT Time Spent in Discharge (Minutes): 45 Discharge Plan Discharge Patient Disposition: 01 Home, Self Care Condition: Stable Medically Cleared Date:: 07/02/24 Prescriptions: New linezolid [Zyvox] 600 mg tablet 600 mg PO BID Qty: 60 0RF Continued lamotrigine [Lamictal] 200 MG tablet 400 mg PO HS Patient Comments: TAKE 2 TABLETS BY MOUTH AT BEDTIME cetirizine 10 MG tablet 10 mg PO HS Patient Comments: TAKE 1 TABLET BY MOUTH NIGHTLY. montelukast 10 MG tablet 1 tab PO QPM Patient Comments: TAKE 1 TABLET BY MOUTH EVERY EVENING AT BEDTIME. albuterol sulfate [Ventolin HFA] 200 PUFFS/18 GM HFA aerosol inhaler 1 - 2 puff IH PRN PRN (Reason: Shortness Of Air/Wheezing) Patient Comments: USE 2 PUFFS BY MOUTH EVERY 4-6 HOURS. duloxetine [Cymbalta] 60 MG capsule,delayed release(DR/EC) 120 mg PO DAILY Patient Comments: TAKE 1 CAPSULE BY MOUTH twice a day gabapentin 300 MG capsule 300 mg ORAL TID hydroxyzine HCl 50 MG tablet 100 mg PO TID PRN (Reason: Anxiety) Biotin Plus 1 EACH tablet 2 tab PO DAILY Clinimix E 5%/D15W Sulfit Free 2,000 ML parenteral solution 2,000 ml IV 1900 0RF Infuvite Adult 10 ML solution 10 ml IV 1900 0RF Tralement 1 ML solution 1 ml IV 1900 0RF cyclobenzaprine 10 mg tablet 5 - 10 mg PO TID PRN (Reason: muscle spasms) Patient Comments: TAKE 1/2 TO 1 TABLET BY MOUTH THREE TIMES DAILY NEEDED FOR MUSCLE SPASMS baclofen 20 mg tablet 20 mg PO DAILY Patient Comments: Takes 1 tablet (20mg) daily buspirone 5 mg tablet 5 mg PO DAILY buprenorphine 20 mcg/hour patch weekly 1 patch transdermal Q7D Patient Comments: APPLY 1 PATCH TOPICALLY TO THE SKIN 1 TIME EVERY WEEK on Mondays Rx Instructions: mondays dextroamphetamine sulfate 20 mg tablet 20 mg PO BID Patient Comments: TAKE 1 TABLET BY MOUTH TWICE DAILY WITH FOOD FOR ATTENTION AND FOCUS dextroamphetamine-amphetamine 15 mg tablet 15 mg PO QPM Patient Comments: TAKE 1 TABLET BY MOUTH at night FOR ATTENTION OR FOCUS fluticasone propionate 50 mcg/actuation spray,suspension 1 spray intranasal BID Patient Comments: SHAKE LIQUID AND USE 1 SPRAY IN EACH NOSTRIL TWICE DAILY fluticasone propion-salmeterol [Wixela Inhub] 500-50 mcg/dose blister with device 1 inh inhalation DAILY furosemide 40 mg tablet 40 mg PO DAILY Patient Comments: TAKE 1 TABLET BY MOUTH DAILY NEEDED FOR WEIGHT GAIN OVER 2 POUNDS OVERNIGHT meloxicam 15 mg tablet 15 mg PO DAILY Patient Comments: TAKE 1 TABLET BY MOUTH DAILY WITH FOOD Activity Restrictions: Activity as Tolerated Activity Restrictions/Additional Instructions: ORTHOPEDIC DISCHARGE INSTRUCTIONS: - Follow up with Dr Wayne next week. Call [phone] for follow up appointment - Daily dressing changes at home daily. If the dressing is saturated in less than 24 hours repeat dressing change whenever dressing is saturated. Place xeroform dressing (yellow) over incision Fold a 4x4 gauze in half and place over wound Secure dressing to skin with tape - If drainage increases, looks cloudy or there is pus draining call the orthopedic office for further guidance. Call the office if there is redness or increased pain about the shoulder - We will determine when you sutures will be removed at that visit Diet: Regular Health Concerns: You are a 53-year-old female with PMH significant for stomach cancer postgastrectomy who has been on TPN for quite some time. You came in on 1118 with right shoulder pain, this did not get better so you came back to the ER and were found to have a large right shoulder abscess. You were admitted to the hospital for shoulder washout and IV antibiotics. You underwent washout in the OR several times, and your cultures came back positive for a drug-resistant staph. You have been started on antibiotics which cover this. I am sending you home on IV antibiotics which will be once a day. I am also prescribing a different antibiotic by mouth. I would encourage you to get a pill heel cover softener to help this absorb better. Orthopedics has discussed wound care with you, instructions are included on this document. Please follow-up with your PCP and with orthopedics Plan of Treatment: Follow-up with PCP, Ortho Antibiotics Wound care Resume home medication/TPN regimen Print Language: Occitan Patient Instructions: Surgery Anesthesia After Stand Alone Forms: PCP List Follow-up Care: Shaneka García MD [Primary Care Provider] -"
== END 2024-07-06 13:55 | disposition home or self-care (01) | DRG 872 ==
LOC: ED 17:48 → MS2 22:10
PROVIDERS: ADMIT Student in an Organized Health Care Education/Training Program; ATTEND Student in an Organized Health Care Education/Training Program
DX: E87.5 Hyperkalemia; Z90.3 Acquired absence of stomach [part of]; L02.413 Cutaneous abscess of right upper limb; M75.121 Complete rotator cuff tear or rupture of right shoulder, not specified as traumatic; E46 Unspecified protein-calorie malnutrition; A41.02 Sepsis due to Methicillin resistant Staphylococcus aureus; G89.29 Other chronic pain; Z68.23 Body mass index [BMI] 23.0-23.9, adult; M00.9 Pyogenic arthritis, unspecified; F41.9 Anxiety disorder, unspecified; Z85.028 Personal history of other malignant neoplasm of stomach; F98.8 Other specified behavioral and emotional disorders with onset usually occurring in childhood and adolescence; F31.9 Bipolar disorder, unspecified; E87.6 Hypokalemia; Z87.891 Personal history of nicotine dependence; L03.113 Cellulitis of right upper limb; A41.9 Sepsis, unspecified organism; Z89.511 Acquired absence of right leg below knee